=== PATIENT | male | born 1945 | race Caucasian/White ===

== ENCOUNTER 2016-12-15 22:41 | Inpatient (IN) ==
[2016-12-15] MEDS ORDERED: *HR* HYDROmorphone (PF) 1 MG/ML SYRINGE IVP ONE (23:40)
[2016-12-15] MEDS ORDERED: 0.9 % Sodium Chloride 500 ML IVC ONE (23:40)
[2016-12-16 00:11] LABS: Basophils % 0.2 %; Eosinophils % 0.3 %; Hematocrit 35.3 % (37.5-50.1); Hemoglobin 11.3 g/dL (12.9-16.9); Immature Granulocytes % 0.3 % (0-4); Lymphocytes # 1.4 K/mcL (0.6-4.6); Mean Corpuscular Volume 90.5 fL (83.0-100.0); Mean Platelet Volume 10.3 fL (9.4-12.4); Monocytes # 0.8 K/mcL (0.0-1.3); Monocytes % 8.5 %; Neutrophils # 6.7 K/mcL (1.6-8.9); Platelet Count 275 K/mcL (140-400); Red Cell Distribution Width 12.5 % (11.5-14.5); Segmented Neutrophils % 74.7 %
[2016-12-16 00:25] LABS: Calcium 9.3 mg/dL (8.6-10.8); Potassium 4.7 mEq/L (3.5-4.5)
[2016-12-16] MEDS ORDERED: Vancomycin 1,250 MG in D5% in Water 250 ML IVPB ONE ×2 (01:39→01:45)
--- NOTE | 2016-12-16 01:42 | Emergency Department Note ---
Disposition Clinical Impression: Left leg cellulitis Diabetic ulcer of left foot Qualifiers: Diabetic foot ulcer location: midfoot Diabetes mellitus type: type 2 Non- pressure ulcer stage: unspecified non-pressure ulcer stage Qualified Code(s): E11.621 - Type 2 diabetes mellitus with foot ulcer Disposition: Admitted As Inpatient Wound/Laceration HPI - General Chief Complaint: ED Wound/Laceration Stated Complaint: LEFT FOOT SWELLING/FEVER Time Seen by Provider: 12/15/16 23:22 Source: patient, family Limitations: no limitations Nursing Notes Reviewed: Yes Vital Signs Reviewed: Yes - History of Present Illness HPI Narrative: Patient presents to the ED with the chief complaint of left foot swelling and pain. Patient has a known diabetic ulcer on the bottom of his left foot and is followed in [place] for this. He states today that the pain got significantly worse, he developed worsening swelling that has tracked up his leg. States that he feels very hot. Had a fever at home and is generally felt unwell. States the last one to wound care about a week ago, but has noticed a change in smell coming from his foot area. Denies any chest pain, shortness breath, vomiting - Related Data Home Medications Medication Instructions Recorded Confirmed Calcitriol [Rocaltrol] 0.25 mcg PO DAILY 12/16/16 12/16/16 Furosemide [Lasix] 20 mg PO DAILY PRN 12/16/16 12/16/16 Insulin ASPART [Novolog Flexpen] 2 - 14 units SQ TID PRN 12/16/16 12/16/16 Insulin Degludec [Tresiba 80 unit SQ QPM 12/16/16 12/16/16 Flextouch U-100] Pregabalin [Lyrica] 100 mg PO DAILY 12/16/16 12/16/16 Allergies Allergy/AdvReac Type Severity Reaction Status Date / Time No Known Allergies Allergy Verified 12/15/16 23:08 All systems ED: reviewed and negative except as stated. Integumentary: Reports: as per HPI Past Medical History - Past Medical History Attestation: Yes The following information was validated with the patient. Source: patient, old records reviewed Medical history: Reports: cancer, coronary artery disease, diabetes, hyperlipidemia, hypertension, myocardial infarction, renal disease Surgical history: Reports: coronary bypass (CABG) Psychiatric history: Reports: depression - Social History Smoking Status: Never smoker Smokeless Tobacco Status: No Alcohol use: Reports: none Drug use: Reports: none Physical Exam - General Limitations: no limitations General appearance: alert, in no apparent distress - Head Head exam: atraumatic, normocephalic, normal inspection - Chest Chest inspection: Present: normal inspection, symmetric chest wall rise - Respiratory Respiratory exam: Present: normal lung sounds bilaterally - Cardiovascular Cardiovascular exam: Present: regular rate, normal rhythm, normal heart sounds - Abdominal Exam Abdominal exam: Present: soft, Non-Tender. Absent: tenderness, distention, guarding, rebound, rigidity - Extremities Exam Extremities exam: Present: other (Patient has a dime-sized ulcer to the bottom of his left foot that is packed and dressed and dry. Madeleine reports increased drainage on the dressing. Surrounding warmth but no erythema. Warmth and swelling does extend up his ankle to just underneath his knee and is significantly different compared to the other side. Compartments are soft and nontender) Course Course Narrative: Patient has no leukocytosis, but did have a fever documented here, as well as a warm, swollen left leg. He did have concern for an underlying cellulitis due to his diabetic ulcer. We will treat with antibiotics and admit to the hospitalist service. After reviewing the patient's initial vital signs, he did originally immediate serious criteria due to his heart rate of 100. However, whenever I saw the patient and his heart rate was less than 90. Therefore, he did not have SIRS criteria when I evaluated him, however, after speaking with the hospitalist, we did decide to go ahead and order blood cultures and a lactate. If the lactic acid comes back elevated. We will treat with a fluid bolus and [facility]. Vital Signs Temperature 101.1 F H 12/15/16 23:03 Pulse Rate 100 12/15/16 23:03 Respiratory Rate 16 12/15/16 23:03 Blood Pressure 165/48 12/15/16 23:03 O2 Sat by Pulse Oximetry 94 12/15/16 23:03 Temperature 98.8 F 12/16/16 23:47 Pulse Rate 100 12/16/16 23:47 Respiratory Rate 16 12/16/16 23:47 Blood Pressure 158/89 12/16/16 23:47 O2 Sat by Pulse Oximetry 93 12/16/16 23:47 Oxygen Delivery Oxygen Delivery Room Air Wound/Laceration - Lab Data Result diagrams: 12/16/16 00:02 12/16/16 00:02 Lab Results 12/16/16 12/16/16 12/16/16 Range/Units 00:02 00:02 00:02 WBC 9.0 (4.3-11.1) K/mcL RBC 3.90 L (4.19-5.50) M/mcL Hgb 11.3 L (12.9-16.9) g/dL Hct 35.3 L (37.5-50.1) % MCV 90.5 (83.0-100.0) fL MCH 29.0 (28.0-33.3) pg MCHC 32.0 (31.6-35.5) g/dL RDW 12.5 (11.5-14.5) % Plt Count 275 (140-400) K/mcL MPV 10.3 (9.4-12.4) fL Immature Gran % 0.3 (0-4) % Seg Neutrophils % 74.7 % Lymphocytes % 16.0 % Monocytes % 8.5 % Eosinophils % 0.3 % Basophils % 0.2 % Neutrophils # 6.7 (1.6-8.9) K/mcL Lymphocytes # 1.4 (0.6-4.6) K/mcL Monocytes # 0.8 (0.0-1.3) K/mcL Eosinophils # 0.0 (0.0-0.6) K/mcL Basophils # 0.0 (0.0-0.2) K/mcL ESR (0-10) mm/hr PT 12.5 H (9.4-12.1) Seconds INR 1.2 APTT 27.4 (26.0-36.0) Seconds Sodium 135 L (136-145) mEq/L Potassium 4.7 H (3.5-4.5) mEq/L Chloride 99 (98-109) mEq/L Carbon Dioxide 25 (19-29) mEq/L BUN 52 H (8-26) mg/dL Creatinine 2.62 H (0.72-1.25) mg/dL Est GFR ( Amer) 30 L (> 60) Est GFR (Non-Af Amer) 24 L (> 60) BUN/Creatinine Ratio 20 (6-26) Glucose 487 H (70-99) mg/dL Est Mean Plasma Glucose mg/dl Hemoglobin A1c ( - 5.6) % Calculated Osmolality 316 H (280-300) Lactic Acid (0.5-2.2) mmol/L Calcium 9.3 (8.6-10.8) mg/dL C-Reactive Protein (Less than 5) mg/L 12/16/16 12/16/16 12/16/16 Range/Units 00:02 00:02 00:02 WBC (4.3-11.1) K/mcL RBC (4.19-5.50) M/mcL Hgb (12.9-16.9) g/dL Hct (37.5-50.1) % MCV (83.0-100.0) fL MCH (28.0-33.3) pg MCHC (31.6-35.5) g/dL RDW (11.5-14.5) % Plt Count (140-400) K/mcL MPV (9.4-12.4) fL Immature Gran % (0-4) % Seg Neutrophils % % Lymphocytes % % Monocytes % % Eosinophils % % Basophils % % Neutrophils # (1.6-8.9) K/mcL Lymphocytes # (0.6-4.6) K/mcL Monocytes # (0.0-1.3) K/mcL Eosinophils # (0.0-0.6) K/mcL Basophils # (0.0-0.2) K/mcL ESR >= 130 H (0-10) mm/hr PT (9.4-12.1) Seconds INR APTT (26.0-36.0) Seconds Sodium (136-145) mEq/L Potassium (3.5-4.5) mEq/L Chloride (98-109) mEq/L Carbon Dioxide (19-29) mEq/L BUN (8-26) mg/dL Creatinine (0.72-1.25) mg/dL Est GFR ( Amer) (> 60) Est GFR (Non-Af Amer) (> 60) BUN/Creatinine Ratio (6-26) Glucose (70-99) mg/dL Est Mean Plasma Glucose 283 mg/dl Hemoglobin A1c 11.5 H ( - 5.6) % Calculated Osmolality (280-300) Lactic Acid (0.5-2.2) mmol/L Calcium (8.6-10.8) mg/dL C-Reactive Protein 158 H (Less than 5) mg/L 12/16/16 Range/Units 02:01 WBC (4.3-11.1) K/mcL RBC (4.19-5.50) M/mcL Hgb (12.9-16.9) g/dL Hct (37.5-50.1) % MCV (83.0-100.0) fL MCH (28.0-33.3) pg MCHC (31.6-35.5) g/dL RDW (11.5-14.5) % Plt Count (140-400) K/mcL MPV (9.4-12.4) fL Immature Gran % (0-4) % Seg Neutrophils % % Lymphocytes % % Monocytes % % Eosinophils % % Basophils % % Neutrophils # (1.6-8.9) K/mcL Lymphocytes # (0.6-4.6) K/mcL Monocytes # (0.0-1.3) K/mcL Eosinophils # (0.0-0.6) K/mcL Basophils # (0.0-0.2) K/mcL ESR (0-10) mm/hr PT (9.4-12.1) Seconds INR APTT (26.0-36.0) Seconds Sodium (136-145) mEq/L Potassium (3.5-4.5) mEq/L Chloride (98-109) mEq/L Carbon Dioxide (19-29) mEq/L BUN (8-26) mg/dL Creatinine (0.72-1.25) mg/dL Est GFR ( Amer) (> 60) Est GFR (Non-Af Amer) (> 60) BUN/Creatinine Ratio (6-26) Glucose (70-99) mg/dL Est Mean Plasma Glucose mg/dl Hemoglobin A1c ( - 5.6) % Calculated Osmolality (280-300) Lactic Acid 1.1 (0.5-2.2) mmol/L Calcium (8.6-10.8) mg/dL C-Reactive Protein (Less than 5) mg/L Attestation Statement - Attestation Attestation: I, Jared Travis, examined this patient and my medical decision-making was reviewed with the TELECOMMUNICATIONS REPAIRER/PA/Advanced Practice Nurse/Resident Physician. I agree with the documented findings, disposition and treatment plan as described except to the extent set forth below. 71-year-old male presents with concerns of swelling of the left foot and fever. Patient states he has a history of diabetes and does not have that sensation of his feet. Patient states he has a ulcer to the plantar aspect of the forefoot which is being treated with antibacterial ointment. Patient denies vomiting, chest pain, shortness of breath. No calf tenderness to palpation although he does have obvious swelling to the left foot, ankle and distal calf. Patient started on antibiotics in the emergency department. He will be admitted for further care of likely cellulitis. X-ray did not show evidence of fracture or osteomyelitis.
[2016-12-16] MEDS ORDERED: Piperacillin/Tazobactam 4.5 GM in D5% in Water (Mini-Bag+) 100 ML IVPB ONE (01:47)
[2016-12-16] MEDS ORDERED: Acetaminophen 325 MG TABLET PO PRN ×2 (02:34→02:38)
[2016-12-16] MEDS ORDERED: Naloxone 0.4 MG/ML INJ IVP PRN (02:37)
[2016-12-16] MEDS ORDERED: *HR* Morphine 2 MG/ML SYRINGE IVP PRN (02:37)
--- NOTE | 2016-12-16 02:39 | Internal Med History&Physical ---
<Aranza Sands - Last Filed: 12/16/16 03:38> Date of Encounter: 12/16/16 Time of Encounter: 01:45 Assessment and Plan (1) Sepsis Current visit: Yes Status: Acute - 2 SIRS criteria (fever 101.1 & tachycardia 100 in ED). Lactic acid 1.1. - Most likely secondary to left diabetic foot ulcer and possible left lower leg cellulitis. - Patient may also have UTI given reported 2-week history of dysuria and foul urine smell. Will obtain UA for further evaluation. - Blood culture pending. - Continue hydration with IV NS (100 cc/hr for total of 1L). - Continue IV Zosyn. - Closely monitor. Time spent on admission: 45 minutes. Qualifiers: Sepsis type: sepsis due to unspecified organism Qualified Code(s): A41.9 - Sepsis, unspecified organism (2) Diabetic ulcer of left foot Current visit: Yes Status: Chronic - One-month history of left plantar diabetic foot ulcer, appears to be worsen over time given reported worsening swelling & pain. - Will obtain left foot MRI for better evaluation of osteomyelitis. - Continue IV Zosyn. - Will consult podiatry and appreciate further evaluation and possible surgical intervention. Will obtain MADALYN vascular study result from [facility] in case patient needs surgery. Qualifiers: Diabetic foot ulcer location: midfoot Diabetes mellitus type: type 2 Non- pressure ulcer stage: unspecified non-pressure ulcer stage Qualified Code(s): E11.621 - Type 2 diabetes mellitus with foot ulcer; L97.429 - Non-pressure chronic ulcer of left heel and midfoot with unspecified severity (3) Left leg cellulitis Current visit: Yes Status: Chronic - Concern of left lower leg cellulitis given significant erythema, swelling and warmth of the left lower leg compared to the right. - Will obtain CT left lower leg for further evaluation. - Continue IV Zosyn. (4) Acute on chronic renal failure Current visit: Yes Status: Suspected - SCr 2.62 / eGFR 24 on admission, compared to SCr 2.32 / eGFR 28 from 12/24/14. - Patient reports known history of CKD stage 3. - May have some component of prerenal DANIE secondary to current sepsis. - Hydration with IV fluid. - Avoid nephrotoxin. - Continue to monitor renal function and electrolytes. Qualifiers: Acute renal failure type: unspecified Chronic kidney disease stage: stage 3 (moderate) Qualified Code(s): N17.9 - Acute kidney failure, unspecified; N18.3 - Chronic kidney disease, stage 3 (moderate) (5) CHF (congestive heart failure) Current visit: Yes Status: Chronic - Echocardiogram from 11/15/14 showed LVEF 45-50% with moderate LV diastolic dysfunction. - Cautious regarding hydration with IV fluid. Qualifiers: Congestive heart failure type: diastolic Congestive heart failure chronicity: chronic Qualified Code(s): I50.32 - Chronic diastolic (congestive ) heart failure (6) Diabetes mellitus Current visit: Yes Status: Chronic - Insulin sliding scale with routine AccuCheck. - Check Hgb A1C. Qualifiers: Diabetes mellitus type: type 2 Diabetes mellitus complication status: with neurologic complications Diabetes mellitus complication detail: with polyneuropathy Diabetes mellitus intermediate card tender insulin use: with long-term use Qualified Code(s): E11.42 - Type 2 diabetes mellitus with diabetic polyneuropathy; Z79.4 - custodial (current) use of insulin (7) CAD (coronary artery disease) Current visit: Yes Status: Chronic -S/p 9 stents and CABG. Qualifiers: Coronary Disease-Associated Artery/Lesion type: [place] artery [place] vs. transplanted heart: [place] heart Associated angina: without angina Qualified Code(s): I25.10 - Atherosclerotic heart disease of [place] coronary artery without angina pectoris (8) DVT prophylaxis Current visit: Yes Status: Acute - SQ heparin. Internal Medicine - H&P: HPI Chief complaint: Worsening swelling and pain of left diabetic foot ulcer Admitted From: Emergency Dept Plans for Post Hospital Care: Home History of present illness: Mr. Anguiano is a 71 year old male with IDDM, CKD stage 3, HTN, CAD s/p 9 stents and CABG, dCHF (LVEF 45-50% & moderate LV diastolic dysfunction per echo on 11/15) and history of melanoma s/p Mohs. Patient presented with complaint of worsening swelling and pain of left diabetic foot ulcer. Patient had the left diabetic foot ulcer for a month and saw nozzle and sleeve worker Dr. Mehta at [facility]. Per patient, he was seen by wound care on Sunday and recently got what sounds like MADALYN index test for possible left foot surgery. Patient had worsening swelling and pain radiating to left leg yesterday (12/15/16) so decided to come to ED. Patient reports having drainage and worsening bad smelling from the foot ulcer. Other associated symptoms include fever, chills, nausea and lightheadedness. Patient had chronic decreased sensation of bilateral lower extremity due to diabetic neuropathy. Patient also reports having occasional dysuria and bad smelling of urine for 2 weeks. Patient has some occasional dry cough but no shortness of breath, chest pain, abdominal pain, vomiting, diarrhea. Patient is full code. In ED, patient was noted to have fever 101.1 and tachycardia 100. Blood culture was collected. Patient received 500 mL IV NS bolus and one dose of IV Zosyn. Left foot X-ray found ulceration along the plantar aspect of the foot but no radiographic evidence of osteomyelitis. Past Med Surg Social Fam HX - Past Medical History Medical history: cancer (Melanoma s/p Mohs), coronary artery disease, diabetes, hyperlipidemia, hypertension, myocardial infarction, renal disease (CKD stage 3) Psychiatric history: depression - Past Surgical History Surgical History: angioplasty/stent (9 stents), coronary bypass (CABG), other ( Mohs for melanoma) - Social History Smoking Status: Never smoker Smokeless Tobacco Status: No Alcohol use: none Drug use: none - Family History Father Living Status: Age at : 82 Hx Family Cardiac Disorders: Yes (CO) Mother Living Status: Age at : 84 Hx Family Cancer: Yes (Liver cancer) Internal Medicine - H&P: Meds Calcitriol [Rocaltrol] 0.25 mcg PO DAILY 12/16/16 [History] Furosemide [Lasix] 20 mg PO DAILY PRN 12/16/16 [History] Insulin ASPART [Novolog Flexpen] 2 - 14 units SQ TID PRN 12/16/16 [History] Insulin Degludec [Tresiba Flextouch U-100] 80 unit SQ QPM 12/16/16 [History] Pregabalin [Lyrica] 100 mg PO DAILY 12/16/16 [History] Allergies No Known Allergies Allergy (Verified 12/15/16 23:08) All Systems PM: A 10-system review of systems was performed and is negative for pertinent findings except as documented above in the HPI. - Constitutional Constitutional: anorexia, chills, fatigue, fever(s) - EENT Eyes: no change in vision Ears: no decreased hearing Nose, mouth and throat: no dysphagia, no odynophagia - Cardiovascular Cardiovascular ROS IM: lightheadedness, no chest pain, no syncope - Respiratory Respiratory: cough, no dyspnea, no hemoptysis, no excessive phlegm production - Gastrointestinal Gastrointestinal: nausea, no abdominal pain, no diarrhea, no hematochezia, no melena, no vomiting - Genitourinary Genitourinary ROS male: dysuria, urinary incontinence (Occasional), no difficulty urinating, no hematuria - Integumentary Integumentary IM: no pruritus, no rash - Neurological Neurological ROS: numbness (Chronic BLE), no focal weakness - Hematologic/Lymphatic Hematologic/Lymphatic: easy bruising, no easy bleeding - Constitutional Vitals: Temp Pulse Resp BP Pulse Ox 101.1 F H 89 16 147/73 95 12/15/16 23:03 12/16/16 01:30 12/15/16 23:03 12/16/16 01:30 12/16/16 01:30 General appearance: Present: cooperative, A&O X 3, no acute distress, answers questions appropriately - Head Head exam: Present: atraumatic, normocephalic - Eye Eye exam: Present: EOMI, PERRL, conjuntiva pink, sclera anicteric - Neck Neck exam general surgery: Present: supple, trachea midline. Absent: lymphadenopathy - Respiratory Respiratory exam: Present: CTAB. Absent: accessory muscle use, rales, rhonchi, wheezes - Cardiovascular Cardiovascular exam: Present: RRR, +S1, +S2. Absent: diastolic murmur, gallop, rubs, systolic murmur - GI/Abdominal GI/Abdominal exam: Present: normal bowel sounds, soft, no peritoneal signs. Absent: distended, tenderness - Extremities Exam Extremities exam: Present: warm, radial pulses palpable and symmetrical. Absent : cyanotic Additional comments: Left foot plantar ulcer with packing & dressing, no significant drainage noted. Significant erythema, swelling and warmth of left lower leg compared to the right. - Neurological Exam Neurological exam: Present: CN II-XII intact, oriented X3, no focal deficits. Absent: pronater drift, facial droop, speech deficit - Skin Skin exam: Present: dry, warm Internal Med - H&P Results - Labs CBC & Chem 7: 12/16/16 00:02 12/16/16 00:02 Labs: Short CBC 12/16/16 Range/Units 00:02 WBC 9.0 (4.3-11.1) K/mcL Hgb 11.3 L (12.9-16.9) g/dL Hct 35.3 L (37.5-50.1) % Plt Count 275 (140-400) K/mcL Neutrophils # 6.7 (1.6-8.9) K/mcL BMP 12/16/16 00:02 Sodium 135 L Potassium 4.7 H Chloride 99 Carbon Dioxide 25 BUN 52 H Creatinine 2.62 H Glucose 487 H Calcium 9.3 - Impressions ITS Impressions Foot X-Ray 12/16/16 23:40 IMPRESSION: 1. Ulceration along the plantar aspect of the foot. No radiographic evidence of osteomyelitis is identified. D/ / Carlos Lan MD / Carlos Lan MD Interpreting Provider: Carlos Lan MD <Chad Gar - Last Filed: 12/16/16 19:45> Date of Encounter: 12/16/16 Internal Medicine - H&P: HPI History of present illness: Mr. Anguiano is a 71 year old male All Systems PM: A 10-system review of systems was performed and is negative for pertinent findings except as documented above in the HPI. - Constitutional Vitals: Temp Pulse Resp BP Pulse Ox 100.5 F H 100 14 166/84 93 12/16/16 18:37 12/16/16 18:37 12/16/16 18:37 12/16/16 18:37 12/16/16 18:37 Internal Med - H&P Results - Labs CBC & Chem 7: 12/16/16 00:02 12/16/16 00:02 Labs: Urine 12/16/16 Range/Units 05:45 Urine Color Yellow (Yellow) Urine Clarity Clear (Clear) Urine pH 6.0 (5.0-8.0) pH Units Ur Specific [place] 1.029 H (1.010-1.025) Urine Protein >=300 H (Neg-Trace) mg/dL Urine Glucose (UA) >=1000 H (Normal) mg/dL - Impressions ITS Impressions Lower Extremity CT 12/16/16 03:19 IMPRESSION: 1. Induration of subcutaneous soft tissues about the lower leg and foot/ankle. Finding can be seen with changes associated with patient's clinical diagnosis of cellulitis. No evidence of focal/drainable fluid collection/abscess. 2. Focal skin defect along ventral soft tissues of the foot in the region of the 3rd metatarsophalangeal joint. Finding is consistent with patient's reported clinical history of diabetic ulcer. No evidence of adjacent fluid collection/abscess. 3. No definite radiographic findings to suggest changes associated with osteomyelitis. If clinical symptomatology warrants, follow-up MRI examination may be helpful for more complete evaluation. D/ / 12/16/2016 06:30:29 Jose Asif MD / agata Interpreting Provider: Jose Asif MD Foot MRI 12/16/16 03:21 IMPRESSION: 1. No osteomyelitis. 2. 17 x 15 mm shallow soft tissue ulceration plantar to the 3rd MTP joint. Forefoot subcutaneous edema compatible cellulitis. No drainable fluid collection. 3. Fatty infiltration and atrophy, and edema of the visualized musculature compatible with diabetic myopathy versus denervation versus myositis. 4. Mild 1st MTP degenerative changes. 5. Chronic healed fracture of the 1st proximal phalanx. D/ / Femi Briseno MD / Femi Briseno MD Interpreting Provider: Femi Briseno MD Foot X-Ray 12/16/16 23:40 IMPRESSION: 1. Ulceration along the plantar aspect of the foot. No radiographic evidence of osteomyelitis is identified. D/ / Carlos Lan MD / Carlos Lan MD Interpreting Provider: Carlos Lan MD - Attending Attestation I examined this patient and my medical decision-making was reviewed with the Resident Physician, Dr Aranza Sands. I agree with the documented findings, disposition and treatment plan as described except to the extent set forth below. My findings are summarized below: Examination of the patient's left foot reveals a plantar ulcer packed with gauze , no discharge noted. Left lower extremity is swollen and tender. Plan: Admit. IV antibiotics. Podiatry consult. We will check MRI of the foot.
[2016-12-16] MEDS ORDERED: Dextrose Gel 15 GM PO PRN ×2 (02:40)
[2016-12-16] MEDS ORDERED: *HR* Dextrose 50 % in Water (Syg) 50 ML SYRINGE IVP PRN (02:40)
[2016-12-16] MEDS ORDERED: D5% in Water 1,000 ML IVC PRN ×2 (02:40→21:45)
[2016-12-16] MEDS ORDERED: Insulin LISPRO 300 UNITS/3 ML VIAL SQ SCH ×2 (02:45→07:30)
[2016-12-16 03:13] LABS: INR 1.2; Prothrombin Time 12.5 Seconds (9.4-12.1)
[2016-12-16 03:15] LABS: Activated Partial Thrombo Time 27.4 Seconds (26.0-36.0)
[2016-12-16 03:16] LABS: Hemoglobin A1C 11.5 %
[2016-12-16] MEDS ORDERED: 0.9 % Sodium Chloride 1,000 ML IVC SCH (03:30)
[2016-12-16] MEDS: Insulin LISPRO 300 UNITS/3 ML VIAL SQ SCH ×3 (05:53→19:22)
[2016-12-16] MEDS: *HR* Heparin 5,000 UNIT/ML VIAL SQ SCH ×2 (05:53→19:14)
[2016-12-16 06:07] LABS: Bilirubin,Urine Negative (Negative); Blood,Urine Trace (Negative); Clarity,Urine Clear (Clear); Color,Urine Yellow (Yellow); Glucose,Urine (UA) >=1000 mg/dL (Normal); Ketones,Urine Negative (Negative); Leukocyte Esterase,Urine Negative (Negative); Nitrite,Urine Negative (Negative); Protein,Urine >=300 mg/dL (Neg-Trace); Specific Gravity,Urine 1.029 (1.010-1.025); Urobilinogen,Urine Normal (Normal)
[2016-12-16 06:10] LABS: Bacteria,Urine None Seen per hpf (None-Few); Hyaline Casts,Urine None Seen per lpf (None-Few); Squamous Epithelial Cell,Urine Moderate per lpf (None-Few); WBC,Urine 0-3 per hpf (0-3)
[2016-12-16] MEDS ORDERED: Piperacillin/Tazobactam 2.25 GM in D5% in Water (Mini-Bag+) 100 ML IVPB SCH (10:30)
--- NOTE | 2016-12-16 11:23 | Event Note ---
Date of Encounter: 12/16/16 Time of Encounter: 08:00 Feels better this morning. Pain is well controlled. ESR and CRP a severely elevated. MRI has been done but results are currently pending. Consulted podiatry and will follow the recommendations. Continue IV antibiotics. Blood pressure is elevated. We will start patient on antihypertensives.
[2016-12-16] MEDS: Piperacillin/Tazobactam 3.375 GM in D5% in Water (Mini-Bag+) 100 ML IVPB SCH (13:20)
--- NOTE | 2016-12-16 22:23 | Podiatry Consult Note ---
Date of Encounter: 12/16/16 Time of Encounter: 22:20 Assessment and Plan (1) Diabetic ulcer of left foot Current visit: Yes Status: Chronic At this time there is not appear to be a deep abscess and the ulceration is open and draining allowing for any deep abscess that would be in the region to drain sufficiently. For that reason we will avoid surgery and monitor the foot for any changes. Patient will likely need antibiotics for at least 1-2 weeks and may benefit from an infectious disease consult. Dressing changes and monitoring of this time. Qualifiers: Diabetic foot ulcer location: midfoot Diabetes mellitus type: type 2 Non- pressure ulcer stage: unspecified non-pressure ulcer stage Qualified Code(s): E11.621 - Type 2 diabetes mellitus with foot ulcer; L97.429 - Non-pressure chronic ulcer of left heel and midfoot with unspecified severity History of Present Illness Chief complaint: Ulceration HPI: Mr. Anguiano is a 71 year old male who relates that he has had an ulceration for some time on the left foot. Patient relates that it has not been improving and that he sees another doctor in [place]. Patient relates that the wound seem to be getting worse and more painful so he came to the hospital Past Med Surg Social Fam HX - Past Medical History Medical history: cancer, coronary artery disease, diabetes, hyperlipidemia, hypertension, myocardial infarction, renal disease Psychiatric history: depression - Past Surgical History Surgical History: coronary bypass (CABG) - Social History Smoking Status: Never smoker Smokeless Tobacco Status: No Alcohol use: none Drug use: none - Family History Father Living Status: Age at : 82 Hx Family Cardiac Disorders: Yes ([place]) Mother Living Status: Age at : 84 Hx Family Cancer: Yes (Liver cancer) Medications and Allergies Calcitriol [Rocaltrol] 0.25 mcg PO DAILY 12/16/16 [History] Furosemide [Lasix] 20 mg PO DAILY PRN 12/16/16 [History] Insulin ASPART [Novolog Flexpen] 2 - 14 units SQ TID PRN 12/16/16 [History] Insulin Degludec [Tresiba Flextouch U-100] 80 unit SQ QPM 12/16/16 [History] Pregabalin [Lyrica] 100 mg PO DAILY 12/16/16 [History] Allergies No Known Allergies Allergy (Verified 12/15/16 23:08) All Systems Reviewed: A 10-system review of systems was performed and is negative for pertinent findings except as documented above in the HPI. Physical Exam - Constitutional Vitals: Temp Pulse Resp BP Pulse Ox 100.5 F H 100 14 166/84 93 12/16/16 18:37 12/16/16 18:37 12/16/16 18:37 12/16/16 18:37 12/16/16 18:37 Exam: Pedal pulses faintly palpable. Capillary fill time intact but slightly sluggish to digits 1 through 5 bilaterally. There are no open lesions, abrasions, or ulcerations with the exception of the plantar aspect of the left foot which demonstrates a 1 cm in diameter lesion that probes approximately 6 mm. The base of the wound appears to be slightly ischemic. Decreased sensation consistent with neuropathy, MRI demonstrates no osteomyelitis or deep abscess. Results - Labs Result Diagrams: 12/16/16 00:02 12/16/16 00:02 Labs: Abnormal lab results RBC 3.90 M/mcL (4.19-5.50) L 12/16/16 00:02 Hgb 11.3 g/dL (12.9-16.9) L 12/16/16 00:02 Hct 35.3 % (37.5-50.1) L 12/16/16 00:02 ESR >= 130 mm/hr (0-10) H 12/16/16 00:02 PT 12.5 Seconds (9.4-12.1) H 12/16/16 00:02 Sodium 135 mEq/L (136-145) L 12/16/16 00:02 Potassium 4.7 mEq/L (3.5-4.5) H 12/16/16 00:02 BUN 52 mg/dL (8-26) H 12/16/16 00:02 Creatinine 2.62 mg/dL (0.72-1.25) H 12/16/16 00:02 Est GFR ( Amer) 30 (> 60) L 12/16/16 00:02 Est GFR (Non-Af Amer) 24 (> 60) L 12/16/16 00:02 Glucose 487 mg/dL (70-99) H 12/16/16 00:02 POC Glucose 385 (58-89) H 12/16/16 05:41 Hemoglobin A1c 11.5 % (-5.6) H 12/16/16 00:02 Calculated Osmolality 316 (280-300) H 12/16/16 00:02 C-Reactive Protein 158 mg/L (Less than 5) H 12/16/16 00:02 Ur Specific [place] 1.029 (1.010-1.025) H 12/16/16 05:45 Urine Protein >=300 mg/dL (Neg-Trace) H 12/16/16 05:45 Urine Glucose (UA) >=1000 mg/dL (Normal) H 12/16/16 05:45 Urine Blood Trace (Negative) H 12/16/16 05:45 Urine Microscopic RBC 5-15 per hpf (0-3) H 12/16/16 05:45 Ur Squamous Epith Cells Moderate per lpf (None-Few) H 12/16/16 05:45 All other labs normal. Consult Discharge Plan - Plan Referrals: Raoul Gaona DO [Primary Care Provider] -
[2016-12-17] MEDS: Piperacillin/Tazobactam 3.375 GM in D5% in Water (Mini-Bag+) 100 ML IVPB SCH ×3 (02:14→23:14)
[2016-12-17] MEDS: *HR* Heparin 5,000 UNIT/ML VIAL SQ SCH ×2 (05:55→16:47)
[2016-12-17] MEDS: Insulin LISPRO 300 UNITS/3 ML VIAL SQ SCH ×4 (08:09→22:00)
[2016-12-17 08:18] LABS: Basophils % 0.3 %; Eosinophils # 0.1 K/mcL (0.0-0.6); Eosinophils % 0.6 %; Hematocrit 33.2 % (37.5-50.1); Hemoglobin 10.8 g/dL (12.9-16.9); Immature Granulocytes % 0.4 % (0-4); Immature Platelets 1.9 % (1.1-6.1); Lymphocytes # 1.2 K/mcL (0.6-4.6); Lymphocytes % 11.8 %; Mean Corpuscular HGB Conc 32.5 g/dL (31.6-35.5); Mean Corpuscular Hemoglobin 29.6 pg (28.0-33.3); Mean Platelet Volume 10.1 fL (9.4-12.4); Monocytes # 0.6 K/mcL (0.0-1.3); Monocytes % 6.3 %; Neutrophils # 7.9 K/mcL (1.6-8.9); Platelet Count 261 K/mcL (140-400); Red Blood Count 3.65 M/mcL (4.19-5.50); Red Cell Distribution Width 12.4 % (11.5-14.5); Segmented Neutrophils % 80.6 %
[2016-12-17] MEDS: Ondansetron 4 MG/2 ML VIAL IVP PRN (08:19)
[2016-12-17 09:09] LABS: Calcium 8.9 mg/dL (8.6-10.8); Potassium 4.2 mEq/L (3.5-4.5)
--- NOTE | 2016-12-17 11:42 | Internal Med Progress Note ---
Date of Encounter: 12/17/16 Time of Encounter: 08:00 - Assessment and plan (1) Sepsis Current Visit: Yes Status: Acute Assessment and plan: From Cellulitis and diabetic foot ulcer. Patient is clinically getting better. Continue IV antibiotics. Podiatry does not recommend any surgical intervention at this time. Cultures have been negative so far. Will follow culture results. Moderate risk for complications. Qualifiers: Sepsis type: sepsis due to unspecified organism Qualified Code(s): A41.9 - Sepsis, unspecified organism (2) Diabetic ulcer of left foot Current Visit: Yes Status: Chronic Assessment and plan: Evaluated by orthopedics and neurosurgery recommended at this time. Will obtain infectious disease consult for further recommendations of antibiotics. Qualifiers: Diabetic foot ulcer location: midfoot Diabetes mellitus type: type 2 Non- pressure ulcer stage: unspecified non-pressure ulcer stage Qualified Code(s): E11.621 - Type 2 diabetes mellitus with foot ulcer; L97.429 - Non-pressure chronic ulcer of left heel and midfoot with unspecified severity (3) Left leg cellulitis Current Visit: Yes Status: Acute Assessment and plan: Improving. On IV antibiotics. (4) Diabetes mellitus Current Visit: Yes Status: Chronic Assessment and plan: Blood sugars are better controlled but remain elevated. We will add long- acting insulin. 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 Qualifiers: Congestive heart failure type: diastolic Congestive heart failure chronicity: chronic Qualified Code(s): I50.32 - Chronic diastolic (congestive ) heart failure (7) CKD (chronic kidney disease) Current Visit: Yes Status: Acute Assessment and plan: Acute worsening of chronic kidney disease. Improving renal function. Creatinine 2.15 today. Holding Lasix for now. Qualifiers: Chronic kidney disease stage: stage 3 (moderate) Qualified Code(s): N18.3 - Chronic kidney disease, stage 3 (moderate) (8) Acute on chronic renal failure Current Visit: Yes Status: Suspected Qualifiers: Acute renal failure type: unspecified Chronic kidney disease stage: stage 3 (moderate) Qualified Code(s): N17.9 - Acute kidney failure, unspecified; N18.3 - Chronic kidney disease, stage 3 (moderate) - Subjective Interval history: Patient is feeling better today. Pain is well controlled in his left foot. Denies any fever or chills. Tolerating diet well. - Constitutional Vitals: Temp Pulse Resp BP Pulse Ox 98.5 F 98 16 154/86 95 12/17/16 06:39 12/17/16 06:39 12/17/16 06:39 12/17/16 06:39 12/17/16 06:39 General appearance: Present: cooperative, A&O X 3, no acute distress, answers questions appropriately - Respiratory Respiratory exam: Present: CTAB. Absent: accessory muscle use, rales, rhonchi, wheezes - Cardiovascular Cardiovascular exam: Present: RRR, +S1, +S2. Absent: diastolic murmur, gallop, rubs, systolic murmur - GI/Abdominal GI/Abdominal exam: Present: normal bowel sounds, soft, no peritoneal signs. Absent: distended, tenderness - Extremities Exam Extremities exam: Present: warm, radial pulses palpable and symmetrical. Absent : calf tenderness, cyanotic, pedal edema Additional comments: Erythema of left leg pretty much subsided. Stable Left foot ulcer on the plantar surface - Neurological Exam Neurological exam: Present: alert, oriented X3, no focal deficits. Absent: facial droop, speech deficit - Skin Skin exam: Present: dry, intact Internal Medicine: Result - Labs CBC & Chem 7: 12/17/16 08:00 12/17/16 08:00 Labs: Short CBC 12/17/16 Range/Units 08:00 WBC 9.8 (4.3-11.1) K/mcL Hgb 10.8 L (12.9-16.9) g/dL Hct 33.2 L (37.5-50.1) % Plt Count 261 (140-400) K/mcL Neutrophils # 7.9 (1.6-8.9) K/mcL BMP 12/17/16 08:00 Sodium 138 Potassium 4.2 Chloride 105 Carbon Dioxide 25 BUN 32 H D Creatinine 2.15 H Glucose 283 H Calcium 8.9 - ABG Interpretation ABG results: PT/INR, D-dimer PT 12.5 Seconds (9.4-12.1) H 12/16/16 00:02 - Impressions Impressions Lower Extremity CT 12/16/16 03:19 IMPRESSION: 1. Induration of subcutaneous soft tissues about the lower leg and foot/ankle. Finding can be seen with changes associated with patient's clinical diagnosis of cellulitis. No evidence of focal/drainable fluid collection/abscess. 2. Focal skin defect along ventral soft tissues of the foot in the region of the 3rd metatarsophalangeal joint. Finding is consistent with patient's reported clinical history of diabetic ulcer. No evidence of adjacent fluid collection/abscess. 3. No definite radiographic findings to suggest changes associated with osteomyelitis. If clinical symptomatology warrants, follow-up MRI examination may be helpful for more complete evaluation. D/ / 12/16/2016 06:30:29 Jose Asif MD / agata Interpreting Provider: Jose Asif MD Foot MRI 12/16/16 03:21 IMPRESSION: 1. No osteomyelitis. 2. 17 x 15 mm shallow soft tissue ulceration plantar to the 3rd MTP joint. Forefoot subcutaneous edema compatible cellulitis. No drainable fluid collection. 3. Fatty infiltration and atrophy, and edema of the visualized musculature compatible with diabetic myopathy versus denervation versus myositis. 4. Mild 1st MTP degenerative changes. 5. Chronic healed fracture of the 1st proximal phalanx. D/ / Femi Briseno MD / Femi Briseno MD Interpreting Provider: Femi Briseno MD Consult Discharge Plan - Plan Referrals: Raoul Gaona DO [Primary Care Provider] -
[2016-12-17] MEDS ORDERED: Insulin DETEMIR 100 UNIT/ML X5UNITS SQ SCH (21:00)
[2016-12-18 03:25] LABS: Potassium 3.9 mEq/L (3.5-4.5)
[2016-12-18 03:48] LABS: Basophils % 0.2 %; Eosinophils % 0.3 %; Hematocrit 32.9 % (37.5-50.1); Hemoglobin 10.5 g/dL (12.9-16.9); Immature Granulocytes % 0.5 % (0-4); Lymphocytes # 1.1 K/mcL (0.6-4.6); Lymphocytes % 11.9 %; Mean Corpuscular HGB Conc 31.9 g/dL (31.6-35.5); Mean Corpuscular Hemoglobin 28.4 pg (28.0-33.3); Mean Corpuscular Volume 88.9 fL (83.0-100.0); Mean Platelet Volume 10.6 fL (9.4-12.4); Monocytes # 0.7 K/mcL (0.0-1.3); Monocytes % 7.5 %; Neutrophils # 7.4 K/mcL (1.6-8.9); Platelet Count 284 K/mcL (140-400); Red Cell Distribution Width 12.3 % (11.5-14.5); Segmented Neutrophils % 79.6 %
[2016-12-18] MEDS: Ondansetron 4 MG/2 ML VIAL IVP PRN (06:05)
[2016-12-18] MEDS: *HR* Heparin 5,000 UNIT/ML VIAL SQ SCH ×2 (06:06→17:22)
[2016-12-18] MEDS: Piperacillin/Tazobactam 3.375 GM in D5% in Water (Mini-Bag+) 100 ML IVPB SCH ×2 (06:06→14:15)
[2016-12-18] MEDS: Insulin LISPRO 300 UNITS/3 ML VIAL SQ SCH ×4 (07:59→20:56)
--- NOTE | 2016-12-18 13:53 | Infectious Disease Consult ---
Date of Encounter: 12/18/16 Time of Encounter: 13:48 Assessment and Plan (1) Sepsis Status: Acute Assessment and plan: The patient had two SIRS criteria on admission. Likely secondary to left foot ulcer infection and LLE cellulitis. Improved. The patient has been afebrile. Tachycardia has resolved. Blood cultures drawn 12/16/16 are NGTD 2/2 sets. Qualifiers: Sepsis type: sepsis due to unspecified organism Qualified Code(s): A41.9 - Sepsis, unspecified organism (2) Diabetic ulcer of left foot Status: Chronic Assessment and plan: Location: Plantar aspect of the left foot. Etiology unclear. Patient denies any known trauma to the area. CT of the LLE showed findings consistent with cellulitis, but no abscess or osteomyelitis. MRI of the left foot negative for OM as well. ESR and CRP are markedly elevated at >130 and 158, respectively. Wound culture positive for Group F Strep. Podiatry consulted and following. No surgical intervention required at this time. Given the clinical picture and his elevated ESR and CRP, I am concerned that there might be some underlying osteomyelitis. I would recommend continuing IV antibiotics for at least two weeks and base our duration of treatment on how the patient progresses clinically and how his inflammatory markers respond to treatment. I discussed the risks, benefits, and alternatives to IV antibiotic therapy with the patient and his family. I provided the patient ample time to answer questions. He verbalizes understanding and is in agreement to pursue IV antibiotic therapy. Discontinue Zosyn. Start cefazolin 2 grams IV Q8H. Start flagyl 500mg PO TID. Duration of treatment depends on the clinical picture. Monitor renal function and dose-adjust antibiotics. Continue wound care and activity restrictions as outlined by the podiatry team. Consult VAT for EPIV placement. Get weekly labs every Sunday for the duration of IV antibiotic therapy: CBC, BUN /Cr, ESR, and CRP. Weekly EPIV care per protocol. Follow up with ID 01/02/17 at 0830. Qualifiers: Diabetic foot ulcer location: midfoot Diabetes mellitus type: type 2 Non- pressure ulcer stage: unspecified non-pressure ulcer stage Qualified Code(s): E11.621 - Type 2 diabetes mellitus with foot ulcer; L97.429 - Non-pressure chronic ulcer of left heel and midfoot with unspecified severity (3) Left leg cellulitis Status: Resolved Assessment and plan: Causative organism likely Group F Strep. Improved. Continue antibiotics as above. (4) Acute on chronic renal failure Status: Suspected Assessment and plan: Serum creatinine elevated from baseline at 2.62 on admission. Improved to 2.22 today. Continue to trend. Avoid nephrotoxins as able and dose-adjust antibiotics. Qualifiers: Acute renal failure type: unspecified Chronic kidney disease stage: stage 3 (moderate) Qualified Code(s): N17.9 - Acute kidney failure, unspecified; N18.3 - Chronic kidney disease, stage 3 (moderate) (5) Diabetes mellitus Status: Chronic Assessment and plan: Uncontrolled. HgbA1C 11.5% on admission. Blood glucose levels continue to be elevated. Recommend aggressive glucose monitoring and control to promote wound healing and prevent re-infection. 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 transplanted heart: [place] heart Associated angina: without angina Qualified Code(s): I25.10 - Atherosclerotic heart disease of [place] coronary artery without angina pectoris (7) CKD (chronic kidney disease) Status: Chronic Qualifiers: Chronic kidney disease stage: stage 3 (moderate) Qualified Code(s): N18.3 - Chronic kidney disease, stage 3 (moderate) Infectious Disease HPI - Data of Consult Patient: new to practice Consult date: 12/18/16 Requesting Physician: Whit Pantoja MD Primary Care Provider: Raoul Gaona - Consult Narrative Reason for consult: Left foot infection History of present illness: Mr. Anguiano is a 71 year old male with past medical history of CAD status post CABG , malignant melanoma, diabetes mellitus, hyperlipidemia, hypertension, and CK D. The patient was admitted to the hospital December 16 for left diabetic foot ulcer infection. We are consulted December 18 for further evaluation and treatment recommendations regarding left foot infection. The patient is a 71-year-old male with past medical history as stated above. The patient states that approximately 2 or 3 weeks ago he sustained an ulcer to the plantar aspect of the left foot. He is unsure how the ulcer happened, but states he was following with a horseshoer in [place]. He states that he was receiving topical antibiotic ointment to the area, but on the day of admission, he noticed that his leg and foot was starting to swell and there was increased drainage and a foul odor from the ulcer area upon arrival, the patient was febrile with temperature 101.1. He was also tachycardic. Laboratory studies revealed a normal white blood cell count and a serum creatinine that was mildly above his baseline. His ESR was markedly elevated at greater than 130 and his CRP was 158. The patient underwent a lower extremity CT that showed findings consistent with cellulitis but no abscess or osteomyelitis. Blood cultures were obtained 2 sets are no growth to date. Additionally, a urinalysis was obtained that was negative for pyuria. The patient received IV Zosyn in the emergency department. He was admitted to the hospital for further evaluation and treatment. Since admission, podiatry has been consulted and the patient underwent a foot MRI that was also negative for osteomyelitis. Based on the imaging findings and the clinical picture, the patient was deemed to not require surgery at this time. Wound cultures were obtained that were positive for group F strep. Yesterday, the patient did have a low-grade fever. His renal function is back to baseline. Blood glucose levels remain elevated. He is still on Zosyn 3.375 g IV every 8 hours. We have asked to evaluate and make further recommendations. During my exam today, the patient states that overall he feels better. He reports fevers and chills and rigors prior to admission. He denies any headache or neck pain. He denies any congestion, earache, or sore throat. He denies chest pain, short of breath, or cough. He reports some nausea with dry heaving over the past couple of days. He denies any abdominal pain but reports a poor appetite. He denies any diarrhea or urinary complaints. He denies pain at the site of the ulcer due to severe peripheral neuropathy. He denies pain in any was extremities or back. He denies the oral thrush or new skin lesions. He states that the ulcer was foul smelling and draining some brown drainage. He reports is to the foot as well as swelling that spread up into the lower portion of the left leg. The patient lives at home with his . They have 3 dogs in the house. He denies any recent travel. He denies any alcohol, tobacco, or illicit drug use. He states his blood sugars have been a little high at home. CC: Whit Pantoja MD Past Med Surg Social Fam HX - Past Medical History Attestation: Yes The following information was validated with the patient. Source: patient, old records reviewed, nursing notes reviewed Medical history: cancer, coronary artery disease, diabetes, hyperlipidemia, hypertension, myocardial infarction, renal disease Psychiatric history: depression - Past Surgical History Surgical History: coronary bypass (CABG) - Social History Smoking Status: Never smoker Smokeless Tobacco Status: No Alcohol use: none Drug use: none Occupational status: retired Current living situation: Home - Independent Activity Level: Independent ambulation Recent Out of Country Travel Within the Last 8 Weeks: No Exposure or Possible Exposure to Illness During Travel: No - Family History Father Living Status: Age at : 82 Hx Family Cardiac Disorders: Yes ([place]) Mother Living Status: Age at : 84 Hx Family Cancer: Yes (Liver cancer) Infectious Disease-CN:Meds Calcitriol [Rocaltrol] 0.25 mcg PO DAILY 12/16/16 [History] Furosemide [Lasix] 20 mg PO DAILY PRN 12/16/16 [History] Insulin ASPART [Novolog Flexpen] 2 - 14 units SQ TID PRN 12/16/16 [History] Insulin Degludec [Tresiba Flextouch U-100] 80 unit SQ QPM 12/16/16 [History] Pregabalin [Lyrica] 100 mg PO DAILY 12/16/16 [History] Allergies No Known Allergies Allergy (Verified 12/15/16 23:08) All systems: reviewed and no additional remarkable complaints except as stated Exam - Constitutional Vitals: Temp Pulse Resp BP Pulse Ox 99.2 F 91 16 158/83 95 12/18/16 11:15 12/18/16 11:15 12/18/16 11:15 12/18/16 11:15 12/18/16 11:15 General appearance: cooperative, no acute distress, obese - Head Head exam: Present: atraumatic, normal inspection, normocephalic - Eye Eye exam: Present: EOMI, normal appearance, PERRL Pupils: Present: normal accommodation - ENT ENT exam: Present: mucous membranes moist - Neck Neck exam: Present: normal inspection - Respiratory Respiratory exam: Present: CTAB. Absent: rales, respiratory distress, rhonchi, wheezes - Cardiovascular Cardiovascular exam: Present: RRR, +S1, +S2 - GI/Abdominal GI/Abdominal exam: Present: distended (obese), normal bowel sounds, soft. Absent: tenderness - Extremities Exam Extremities exam: Present: pedal edema (1+ LLE). Absent: joint swelling, tenderness Additional comments: 0.5cm x 0.5cm ulcer noted to the plantar aspect of the left foot. Wound bed 60% necrosis, 40% slough. Foul odor noted. Purulent drainage noted on old dressing. Erythema noted to the dorsal aspect of the left foot. Mildly warm to touch. No lymphangitis noted. - Neurological Exam Neurological exam: Present: alert, oriented X3, no focal deficits - Psychiatric Psychiatric exam: Present: normal affect, normal mood - Skin Skin exam: Present: dry, intact, normal color, warm Infectious Disease CN: Results - Labs CBC & Chem 7: 12/18/16 01:07 12/18/16 01:07 Cultures: Cultures 12/16/16 21:12 Wound Culture - Preliminary Left Foot Group F Streptococcus Serology: Serology 12/16/16 Range/Units 05:45 Urine Color Yellow (Yellow) Urine Clarity Clear (Clear) Urine pH 6.0 (5.0-8.0) pH Units Ur Specific [place] 1.029 H (1.010-1.025) Urine Protein >=300 H (Neg-Trace) mg/dL Urine Glucose (UA) >=1000 H (Normal) mg/dL Urine Ketones Negative (Negative) mg/dL Urine Blood Trace H (Negative) Urine Nitrite Negative (Negative) Urine Bilirubin Negative (Negative) Urine Urobilinogen Normal (Normal) mg/dL Ur Leukocyte Esterase Negative (Negative) Urine Microscopic RBC 5-15 H (0-3) per hpf Urine Microscopic WBC 0-3 (0-3) per hpf Ur Squamous Epith Cells Moderate H (None-Few) per lpf Urine Bacteria None Seen (None-Few) per hpf Hyaline Casts None Seen (None-Few) per lpf Ur Culture Indicated? NO (NO) Consult Discharge Plan - Plan Referrals: Raoul Gaona, [Primary Care Provider] - Jasmin Cohen, TRANSITIONAL [employer] [Advanced Practice Nurse] - 01/02/17 8:30 am - Attending Attestation I examined this patient and my medical decision-making was reviewed with the Resident Physician. I agree with the documented findings, disposition and treatment plan as described except to the extent set forth below. This is an addendum to original report dictated by Jasmin Cohen CNP. Please refer to Cari note for full detail. Patient 71-year-old gentleman with past medical history mentioned above who apparently had about 2-3 weeks of sustained ulcer to the plantar after that the left foot digit. Patient is following up with podiatry up in [place]. Patient apparently has been having worsening redness and swelling in his leg and came in with sepsis like picture. MRI of the lower extremity showed cellulitis but no abscess or osteomyelitis. Cultures were positive for group F streptococcus. We were asked to evaluate the patient and make further recommendations. At this point will start the patient on cefazolin and will continue metronidazole caused his pulse smell and concern for possible anaerobic infection. Well dose adjust based on the creatinine clearance of the patient. Monitor labs. Duration of treatment depends on clinical picture but likely 6 weeks since I discussed the case with Dr. Mandel and he is concern for early osteomyelitis specially with an elevated inflammatory markers including ESR.
[2016-12-18] MEDS: *HR* HYDROcodone/Acet 5/325 mg TABLET PO PRN ×2 (14:42→22:25)
[2016-12-18] MEDS: metroNIDAZOLE 500 MG TABLET PO SCH ×2 (16:11→20:57)
--- NOTE | 2016-12-18 16:24 | Internal Med Progress Note ---
Date of Encounter: 12/18/16 Time of Encounter: 08:00 - Assessment and plan (1) Sepsis Current Visit: Yes Status: Acute Assessment and plan: From infected diabetic foot ulcer. Patient continues to have low-grade fever. Infectious disease consult ordered and we will follow recommendations. Wound culture positive for group F streptococcus. Blood cultures remain negative. Moderate risk for complications. Qualifiers: Sepsis type: sepsis due to unspecified organism Qualified Code(s): A41.9 - Sepsis, unspecified organism (2) Diabetic ulcer of left foot Current Visit: Yes Status: Chronic Assessment and plan: Evaluated by podiatry. NO surgery recommended. Continue IV antibiotics. Patient does have severely elevated ESR and CRP. Qualifiers: Diabetic foot ulcer location: midfoot Diabetes mellitus type: type 2 Non- pressure ulcer stage: unspecified non-pressure ulcer stage Qualified Code(s): E11.621 - Type 2 diabetes mellitus with foot ulcer; L97.429 - Non-pressure chronic ulcer of left heel and midfoot with unspecified severity (3) Left leg cellulitis Current Visit: Yes Status: Resolved Assessment and plan: This is mostly resolved (4) Diabetes mellitus Current Visit: Yes Status: Chronic Assessment and plan: Blood sugars remain elevated. We will increase long-acting insulin coverage dosage. Qualifiers: Diabetes mellitus type: type 2 Diabetes mellitus complication status: with neurologic complications Diabetes mellitus complication detail: with polyneuropathy Diabetes mellitus joint terminal attack controller insulin use: with joint terminal attack controller use Qualified Code(s): E11.42 - Type 2 diabetes mellitus with diabetic polyneuropathy; Z79.4 - detention (current) use of insulin (5) CHF (congestive heart failure) Current Visit: Yes Status: Chronic Assessment and plan: Not in acute exacerbation. Holding Lasix due to worsening renal function. Resume once renal function stabilizes. Qualifiers: Congestive heart failure type: diastolic Congestive heart failure chronicity: chronic Qualified Code(s): I50.32 - Chronic diastolic (congestive ) heart failure (6) Acute on chronic renal failure Current Visit: Yes Status: Suspected Assessment and plan: Renal function appears to be stabilizing. Creatinine at 2.22. Follow renal function closely. Qualifiers: Acute renal failure type: unspecified Chronic kidney disease stage: stage 3 (moderate) Qualified Code(s): N17.9 - Acute kidney failure, unspecified; N18.3 - Chronic kidney disease, stage 3 (moderate) (7) CKD (chronic kidney disease) Current Visit: Yes Status: Chronic Qualifiers: Chronic kidney disease stage: stage 3 (moderate) Qualified Code(s): N18.3 - Chronic kidney disease, stage 3 (moderate) (8) DVT prophylaxis Current Visit: Yes Status: Acute Assessment and plan: With subcutaneous heparin - Subjective Interval history: Patient continues to improve. No new complaints at this time. Denies any pain in his left foot. Having low-grade fever with MAXIMUM TEMPERATURE of 100.3 last night. - Constitutional Vitals: Temp Pulse Resp BP Pulse Ox 99.2 F 88 16 156/83 94 12/18/16 16:07 12/18/16 16:07 12/18/16 16:07 12/18/16 16:07 12/18/16 16:07 General appearance: Present: cooperative, A&O X 3, no acute distress, answers questions appropriately - Respiratory Respiratory exam: Present: CTAB. Absent: accessory muscle use, rales, rhonchi, wheezes - Cardiovascular Cardiovascular exam: Present: RRR, +S1, +S2. Absent: diastolic murmur, gallop, rubs, systolic murmur - GI/Abdominal GI/Abdominal exam: Present: normal bowel sounds, soft, no peritoneal signs. Absent: distended, tenderness - Extremities Exam Extremities exam: Present: warm, radial pulses palpable and symmetrical. Absent : calf tenderness, cyanotic, pedal edema Additional comments: Left foot ulcer appears stable. No signs of worsening infection. Internal Medicine: Result - Labs CBC & Chem 7: 12/18/16 01:07 12/18/16 01:07 Labs: Short CBC 12/18/16 Range/Units 01:07 WBC 9.3 (4.3-11.1) K/mcL Hgb 10.5 L (12.9-16.9) g/dL Hct 32.9 L (37.5-50.1) % Plt Count 284 (140-400) K/mcL Neutrophils # 7.4 (1.6-8.9) K/mcL BMP 12/18/16 01:07 Sodium 136 Potassium 3.9 Chloride 103 Carbon Dioxide 23 BUN 31 H Creatinine 2.22 H Glucose 224 H Calcium 9.0 - ABG Interpretation ABG results: PT/INR, D-dimer PT 12.5 Seconds (9.4-12.1) H 12/16/16 00:02 Consult Discharge Plan - Plan Referrals: Raoul Gaona DO [Primary Care Provider] - Jasmin Cohen, RICARDO [Advanced Practice Nurse] - 01/02/17 8:30 am
[2016-12-18] MEDS: ceFAZolin 2,000 MG in D5% in Water 100 ML IVPB SCH ×2 (17:21→22:30)
[2016-12-18] MEDS: Insulin DETEMIR 100 UNIT/ML X5UNITS SQ SCH (20:57)
[2016-12-19 05:05] LABS: Potassium 3.9 mEq/L (3.5-4.5)
[2016-12-19] MEDS: *HR* Heparin 5,000 UNIT/ML VIAL SQ SCH ×2 (05:41→17:25)
[2016-12-19] MEDS: ceFAZolin 2,000 MG in D5% in Water 100 ML IVPB SCH (06:50)
[2016-12-19] MEDS: Insulin LISPRO 300 UNITS/3 ML VIAL SQ SCH ×6 (07:40→20:49)
[2016-12-19] MEDS: metroNIDAZOLE 500 MG TABLET PO SCH ×3 (07:40→20:49)
[2016-12-19] MEDS: Insulin DETEMIR 100 UNIT/ML X5UNITS SQ SCH ×2 (08:01→17:25)
[2016-12-19] MEDS ORDERED: Insulin DETEMIR 100 UNIT/ML X5UNITS SQ ONE (10:53)
--- NOTE | 2016-12-19 10:56 | Internal Med Progress Note ---
Date of Encounter: 12/19/16 Time of Encounter: 10:40 - Assessment and plan (1) Sepsis Current Visit: Yes Status: Acute Assessment and plan: Secondary to infected diabetic foot ulcer Clinically improving afebrile ID consultation appreciated will continue IV abx as per ID at this time s/p EPIV placement, pt will be discharged to home with IV abx social service consultation requested for arrangement of iV abx upon discharge Wound culture positive for group F streptococcus and staph aureus . Blood cultures remain negative. Moderate risk for complications. Qualifiers: Sepsis type: sepsis due to unspecified organism Qualified Code(s): A41.9 - Sepsis, unspecified organism (2) Diabetic ulcer of left foot Current Visit: Yes Status: Chronic Assessment and plan: Evaluated by podiatry. NO surgery recommended. Continue IV antibiotics. Patient does have severely elevated ESR and CRP likely secondary to the underlying infection further plan as listed above Qualifiers: Diabetic foot ulcer location: midfoot Diabetes mellitus type: type 2 Non- pressure ulcer stage: unspecified non-pressure ulcer stage Qualified Code(s): E11.621 - Type 2 diabetes mellitus with foot ulcer; L97.429 - Non-pressure chronic ulcer of left heel and midfoot with unspecified severity (3) Left leg cellulitis Current Visit: Yes Status: Resolved Assessment and plan: This is mostly resolved (4) Diabetes mellitus Current Visit: Yes Status: Chronic Assessment and plan: Remains hyperglycemic Unable to get patient's home insulin while hospitalized increased to Levemir 32units q12h added humalog 7units TIDAC continue high dose insulin algorithm monitor FS and BG Qualifiers: Diabetes mellitus type: type 2 Diabetes mellitus complication status: with neurologic complications Diabetes mellitus complication detail: with polyneuropathy Diabetes mellitus long-term insulin use: with long-term use Qualified Code(s): E11.42 - Type 2 diabetes mellitus with diabetic polyneuropathy; Z79.4 - FPC (current) use of insulin (5) DVT prophylaxis Current Visit: Yes Status: Acute Assessment and plan: Heparin SQ (6) CHF (congestive heart failure) Current Visit: Yes Status: Chronic Assessment and plan: Not in acute exacerbation continue home medications Qualifiers: Congestive heart failure type: diastolic Congestive heart failure chronicity: chronic Qualified Code(s): I50.32 - Chronic diastolic (congestive ) heart failure (7) CKD (chronic kidney disease) Current Visit: Yes Status: Chronic Assessment and plan: Renal function at baseline will continue to monitor Qualifiers: Chronic kidney disease stage: stage 3 (moderate) Qualified Code(s): N18.3 - Chronic kidney disease, stage 3 (moderate) - Subjective Interval history: Pt seen and examined at bedside. Resting in bed and denies any discomfort at this time. States he is able to ambulate to the bathroom and back. No overnight issues reported Pt noted to be hyperglycemi, requiring 44 units of additional insulin coverage. - Constitutional Vitals: Temp Pulse Resp BP Pulse Ox 98.1 F 94 18 146/78 92 12/19/16 07:01 12/19/16 07:01 12/19/16 07:01 12/19/16 07:01 12/19/16 07:01 General appearance: Present: cooperative, A&O X 3, no acute distress, answers questions appropriately - Head Head exam: Present: atraumatic, normocephalic - Eye Eye exam: Present: conjuntiva pink, sclera anicteric - Respiratory Respiratory exam: Absent: respiratory distress, wheezes - Cardiovascular Cardiovascular exam: Present: RRR, +S1, +S2. Absent: diastolic murmur, gallop, rubs, systolic murmur - GI/Abdominal GI/Abdominal exam: Present: normal bowel sounds, soft, no peritoneal signs. Absent: distended, tenderness - Extremities Exam Extremities exam: Present: warm, radial pulses palpable and symmetrical (left foot wrapped in dressing ). Absent: calf tenderness - Neurological Exam Neurological exam: Present: alert, oriented X3 Internal Medicine: Result - Labs CBC & Chem 7: 12/18/16 01:07 12/19/16 04:15 Labs: BMP 12/19/16 04:15 Sodium 139 Potassium 3.9 Chloride 104 Carbon Dioxide 27 BUN 29 H Creatinine 2.23 H Glucose 113 H Calcium 9.0 - ABG Interpretation ABG results: PT/INR, D-dimer PT 12.5 Seconds (9.4-12.1) H 12/16/16 00:02 Consult Discharge Plan - Plan Referrals: Raoul Gaona DO [Primary Care Provider] - Jasmin Cohen, SURVEY WORKER [Advanced Practice Nurse] - 01/02/17 8:30 am
[2016-12-19] MEDS ORDERED: Furosemide 20 MG TABLET PO PRN (10:57)
--- NOTE | 2016-12-19 11:06 | Infectious Disease Progress No ---
Date of Encounter: 12/19/16 Time of Encounter: 11:04 - Assessment and Plan (1) Sepsis Current Visit: Yes Status: Acute The patient had two SIRS criteria on admission. Likely secondary to left foot ulcer infection and LLE cellulitis. Improved. The patient has been afebrile. Tachycardia has resolved. Blood cultures drawn 12/16/16 are NGTD 2/2 sets. Qualifiers: Sepsis type: sepsis due to unspecified organism Qualified Code(s): A41.9 - Sepsis, unspecified organism (2) Diabetic ulcer of left foot Current Visit: Yes Status: Chronic Location: Plantar aspect of the left foot. Etiology unclear. Patient denies any known trauma to the area. CT of the LLE showed findings consistent with cellulitis, but no abscess or osteomyelitis. MRI of the left foot negative for OM as well. ESR and CRP are markedly elevated at >130 and 158, respectively. Wound culture positive for Group F Strep and MSSA. Podiatry consulted and following. No surgical intervention required at this time. Given the clinical picture and his elevated ESR and CRP, I am concerned that there might be some underlying osteomyelitis. Case discussed with Dr Mandel who states he is suspicious for early osteomyelitis as well. As previously documented, the patient is agreeable to pursue long-term IV antibiotic therapy. We discussed the use of cefazolin TID vs. Nafcillin 24 hour infusion pump. The patient states he would like to do the 24 hour infusion. Discontinue cefazolin 2 grams IV Q8H. Continue flagyl 500mg PO TID. Start Nafcillin 2 grams IV Q4H now. Will dose as 24 hours continuous IV infusion on discharge. Duration of treatment depends on the clinical picture, but likely 6 weeks of IV antibiotics. Monitor renal function and dose-adjust antibiotics. Continue wound care and activity restrictions as outlined by the podiatry team. EPIV placed 12/18/16. Get weekly labs every Sunday for the duration of IV antibiotic therapy: CBC, BUN /Cr, ESR, and CRP. Weekly EPIV care per protocol. Follow up with ID 01/02/17 at 0830. Qualifiers: Diabetic foot ulcer location: midfoot Diabetes mellitus type: type 2 Non- pressure ulcer stage: unspecified non-pressure ulcer stage Qualified Code(s): E11.621 - Type 2 diabetes mellitus with foot ulcer; L97.429 - Non-pressure chronic ulcer of left heel and midfoot with unspecified severity (3) Left leg cellulitis Current Visit: Yes Status: Resolved Causative organism likely Group F Strep and MSSA. Improved. Continue antibiotics as above. (4) Acute on chronic renal failure Current Visit: Yes Status: Suspected Serum creatinine elevated from baseline at 2.62 on admission. Improved to 2.23 today. Continue to trend. Avoid nephrotoxins as able and dose-adjust antibiotics. Qualifiers: Acute renal failure type: unspecified Chronic kidney disease stage: stage 3 (moderate) Qualified Code(s): N17.9 - Acute kidney failure, unspecified; N18.3 - Chronic kidney disease, stage 3 (moderate) (5) Diabetes mellitus Current Visit: Yes Status: Chronic Uncontrolled. HgbA1C 11.5% on admission. Blood glucose levels continue to be elevated. Recommend aggressive glucose monitoring and control to promote wound healing and prevent re-infection. Qualifiers: Diabetes mellitus type: type 2 Diabetes mellitus complication status: with neurologic complications Diabetes mellitus complication detail: with polyneuropathy Diabetes mellitus correction insulin use: with motor builder assembler use Qualified Code(s): E11.42 - Type 2 diabetes mellitus with diabetic polyneuropathy; Z79.4 - head of english (current) use of insulin (6) CAD (coronary artery disease) Current Visit: Yes Status: Chronic Qualifiers: Coronary Disease-Associated Artery/Lesion type: [place] artery [place] vs. transplanted heart: [place] heart Associated angina: without angina Qualified Code(s): I25.10 - Atherosclerotic heart disease of [place] coronary artery without angina pectoris (7) CKD (chronic kidney disease) Current Visit: Yes Status: Chronic Qualifiers: Chronic kidney disease stage: stage 3 (moderate) Qualified Code(s): N18.3 - Chronic kidney disease, stage 3 (moderate) - Subjective Interval history: Patient seen and examined. No acute events noted overnight. Patient resting quietly in bed. Denies any fevers or chills or rigors. Denies any chest pain, shortness of breath, or cough. Denies any nausea, vomiting, diarrhea, constipation. States his appetite is better. Denies any abdominal pain or urinary complaints. Denies any oral thrush any skin lesions. Denies any pain at the site the diabetic foot ulcer. Infect Dis PN-Objective Data - Labs CBC & Chem 7: 12/18/16 01:07 12/19/16 04:15 Labs: Laboratory Results - last 24 hr 12/18/16 12/19/16 12/19/16 20:14 04:15 07:10 Sodium 139 Potassium 3.9 Chloride 104 Carbon Dioxide 27 BUN 29 H Creatinine 2.23 H Est GFR ( Amer) 36 L Est GFR (Non-Af Amer) 29 L BUN/Creatinine Ratio 13 Glucose 113 H POC Glucose 207 H 146 H Calculated Osmolality 295 Calcium 9.0 Cultures: Cultures 12/16/16 21:12 Wound Culture - Preliminary Left Foot Group F Streptococcus Staphylococcus aureus Serology 12/16/16 Range/Units 05:45 Urine Color Yellow (Yellow) Urine Clarity Clear (Clear) Urine pH 6.0 (5.0-8.0) pH Units Ur Specific [place] 1.029 H (1.010-1.025) Urine Protein >=300 H (Neg-Trace) mg/dL Urine Glucose (UA) >=1000 H (Normal) mg/dL Urine Ketones Negative (Negative) mg/dL Urine Blood Trace H (Negative) Urine Nitrite Negative (Negative) Urine Bilirubin Negative (Negative) Urine Urobilinogen Normal (Normal) mg/dL Ur Leukocyte Esterase Negative (Negative) Urine Microscopic RBC 5-15 H (0-3) per hpf Urine Microscopic WBC 0-3 (0-3) per hpf Ur Squamous Epith Cells Moderate H (None-Few) per lpf Urine Bacteria None Seen (None-Few) per hpf Hyaline Casts None Seen (None-Few) per lpf Ur Culture Indicated? NO (NO) Exam - Constitutional Vitals: Temp Pulse Resp BP Pulse Ox 98.1 F 94 18 146/78 92 12/19/16 07:01 12/19/16 07:01 12/19/16 07:01 12/19/16 07:01 12/19/16 07:01 General appearance: average body habitus, cooperative, no acute distress, obese - Head Head exam: Present: atraumatic, normal inspection, normocephalic - Eye Eye exam: Present: EOMI, normal appearance, PERRL Pupils: Present: normal accommodation - ENT ENT exam: Present: mucous membranes moist - Neck Neck exam: Present: normal inspection - Respiratory Respiratory exam: Present: CTAB. Absent: rales, respiratory distress, rhonchi, wheezes - Cardiovascular Cardiovascular exam: Present: RRR, +S1, +S2 - GI/Abdominal GI/Abdominal exam: Present: distended (obese), normal bowel sounds, soft. Absent: tenderness - Extremities Exam Extremities exam: Present: pedal edema (Trace LLE). Absent: joint swelling, tenderness Additional comments: Left foot dressing C/D/I. - Neurological Exam Neurological exam: Present: alert, oriented X3, no focal deficits - Psychiatric Psychiatric exam: Present: normal affect, normal mood - Skin Skin exam: Present: dry, intact, normal color, warm - Additional findings Additional findings: EPIV noted to the LUE with transparent dressing C/D/I. Consult Discharge Plan - Plan Referrals: Raoul Gaona DO [Primary Care Provider] - Jasmin Cohen CNP [Advanced Practice Nurse] - 01/02/17 8:30 am Prescriptions: metroNIDAZOLE [Flagyl] 500 mg PO TID #126 tab Nafcillin 12 gm IV Q24H #42 vial - Attending Attestation I examined this patient and my medical decision-making was reviewed with the Resident Physician. I agree with the documented findings, disposition and treatment plan as described except to the extent set forth below.
[2016-12-19] MEDS ORDERED: Nafcillin 2,000 MG in D5% in Water (Mini-Bag+) 100 ML IVPB SCH (12:00)
[2016-12-19] MEDS: Nafcillin 2,000 MG in D5% in Water (Mini-Bag+) 100 ML IVPB SCH ×2 (19:51→23:19)
[2016-12-19] MEDS: *HR* HYDROcodone/Acet 5/325 mg TABLET PO PRN (23:19)
[2016-12-20] MEDS: Nafcillin 2,000 MG in D5% in Water (Mini-Bag+) 100 ML IVPB SCH ×3 (03:05→10:33)
[2016-12-20 05:10] LABS: Basophils % 0.2 %; Eosinophils % 0.3 %; Hematocrit 30.6 % (37.5-50.1); Hemoglobin 10.1 g/dL (12.9-16.9); Immature Granulocytes % 0.8 % (0-4); Lymphocytes # 1.1 K/mcL (0.6-4.6); Lymphocytes % 12.3 %; Mean Corpuscular Hemoglobin 29.6 pg (28.0-33.3); Mean Corpuscular Volume 89.7 fL (83.0-100.0); Mean Platelet Volume 9.9 fL (9.4-12.4); Monocytes # 0.8 K/mcL (0.0-1.3); Monocytes % 8.7 %; Neutrophils # 7.1 K/mcL (1.6-8.9); Platelet Count 288 K/mcL (140-400); Red Blood Count 3.41 M/mcL (4.19-5.50); Red Cell Distribution Width 12.4 % (11.5-14.5); Segmented Neutrophils % 77.7 %
[2016-12-20 05:24] LABS: Calcium 8.9 mg/dL (8.6-10.8); Magnesium 1.7 mg/dL (1.6-2.6); Phosphorous 4.5 mg/dL (2.3-4.7); Potassium 3.4 mEq/L (3.5-4.5)
[2016-12-20] MEDS: *HR* Heparin 5,000 UNIT/ML VIAL SQ SCH (06:11)
[2016-12-20] MEDS: Insulin LISPRO 300 UNITS/3 ML VIAL SQ SCH ×2 (08:02→08:03)
[2016-12-20] MEDS: metroNIDAZOLE 500 MG TABLET PO SCH (08:03)
[2016-12-20] MEDS ORDERED: Pregabalin 50 MG CAPSULE PO SCH (09:00)
[2016-12-20] MEDS: Insulin DETEMIR 100 UNIT/ML X5UNITS SQ SCH (09:09)
[2016-12-20] MEDS: amLODIPine 5 MG TABLET PO SCH ×2 (09:09)
--- NOTE | 2016-12-20 09:11 | Discharge Summary ---
Date of Encounter: 12/20/16 Time of Encounter: 09:05 - Discharge Diagnosis (1) Sepsis Priority: Primary Status: Resolved Qualifiers: Sepsis type: sepsis due to unspecified organism Qualified Code(s): A41.9 - Sepsis, unspecified organism (2) Diabetic ulcer of left foot Priority: Primary Status: Acute Qualifiers: Diabetic foot ulcer location: midfoot Diabetes mellitus type: type 2 Non- pressure ulcer stage: unspecified non-pressure ulcer stage Qualified Code(s): E11.621 - Type 2 diabetes mellitus with foot ulcer; L97.429 - Non-pressure chronic ulcer of left heel and midfoot with unspecified severity (3) Left leg cellulitis Priority: Secondary Status: Resolved (4) Diabetes mellitus Priority: Secondary Status: Chronic Qualifiers: Diabetes mellitus type: type 2 Diabetes mellitus complication status: with neurologic complications Diabetes mellitus complication detail: with polyneuropathy Diabetes mellitus assisted insulin use: with termite technician use Qualified Code(s): E11.42 - Type 2 diabetes mellitus with diabetic polyneuropathy; Z79.4 - shelter (current) use of insulin (5) DVT prophylaxis Priority: Secondary Status: Acute (6) CHF (congestive heart failure) Priority: Secondary Status: Chronic Qualifiers: Congestive heart failure type: diastolic Congestive heart failure chronicity: chronic Qualified Code(s): I50.32 - Chronic diastolic (congestive ) heart failure (7) CKD (chronic kidney disease) Priority: Secondary Status: Chronic Qualifiers: Chronic kidney disease stage: stage 3 (moderate) Qualified Code(s): N18.3 - Chronic kidney disease, stage 3 (moderate) - Discharge Medications Prescriptions: HYDROcodone/Acet 5/325 mg [[place] 5-325 mg] 1 tab PO Q6H PRN #10 tab PRN Reason: Severe Pain metroNIDAZOLE [Flagyl] 500 mg PO TID #126 tab Nafcillin 12 gm IV Q24H #42 vial Home Medications: Calcitriol [Rocaltrol] 0.25 mcg PO DAILY 12/16/16 [History] Furosemide [Lasix] 20 mg PO DAILY PRN 12/16/16 [History] Insulin ASPART [Novolog Flexpen] 2 - 14 units SQ TID PRN 12/16/16 [History] Insulin Degludec [Tresiba Flextouch U-100] 80 unit SQ QPM 12/16/16 [History] Pregabalin [Lyrica] 100 mg PO DAILY 12/16/16 [History] Nafcillin 12 gm IV Q24H #42 vial 12/19/16 [Rx] metroNIDAZOLE [Flagyl] 500 mg PO TID #126 tab 12/19/16 [Rx] HYDROcodone/Acet 5/325 mg [[place] 5-325 mg] 1 tab PO Q6H PRN #10 tab 12/20/16 [Rx ] Allergies/Adverse Reactions: Allergies No Known Allergies Allergy (Verified 12/15/16 23:08) Date of admission: 12/16/16 03:11 Primary care physician: Raoul Gaona Consults: 12/16/16 03:27 Consult to Podiatry [CONS] Routine Consulting Provider: [facility] Reason for Consult: Left diabetic foot ulcer with likely left leg cellulitis. Appreciate podiatry evaluation and recommendations. Call Completed: No 12/16/16 04:28 Consult to Food Inspector [CONS] Routine Reason for SW Consult: potential need for Home Health, wound care 12/17/16 11:49 Consult to Infectious Diseases [CONS] Routine Consulting Provider: Infectious Disease [facility] Reason for Consult: Diabetic foot ulcer with cellulitis Call Completed: No 12/18/16 14:49 Consult to Invasive Line Access Team [CONS] Routine Reason for Consult: EPIV placement Line Type: EPIV PICC line indications: shelter Med/Antibiotic Time Notified: 14:50 Call Completed: Yes Discharging clinician: Theresa Vaz Anticipated date of discharge: 12/20/16 - Patient Status Disposition: Home Health Service Condition: Good Functional capacity at discharge: uses cane/walker Overall status at discharge: patient is back to baseline - Discharge Instructions Instructions: Diabetes Mellitus Type 2 in Adults (DC), Acute Wound Care (DC), Diabetic Foot Ulcers (DC) Follow Up With: Raoul Gaona DO [Primary Care Provider] - Jasmin Cohen AGRICULTURAL ENGINEERING TECHNOLOGIST [Advanced Practice Nurse] - 01/02/17 8:30 am Additional Instructions: Please follow up with your primary care physician within five days after your discharge from the hospital. Please follow up with Infectious disease specialist and podiatry within one week after your discharge from the hospital. Please continue IV antibiotics as prescribed by the Infectious disease specialist. Please resume all your home medications as prescribed by your primary care physician. - Diet and Activity Activity: increase activity as tolerated Diet: diabetic diet, low salt diet Hospital course: Mr. Anguiano is a 71 year old male with PMH of DM, CKD, HTN, CAD, CABG, CHF who was admitted for sepsis secondary to infected diabetic foot ulcer. He was started on empiric IV abx and was evaluated by podiatry and infectious disease. No surgical intervention was recommended by podiatry and IV abx were continued by ID specialist. Given patient's clinical presentation, there was a concern for early signs of osteomyelitis due to which he is to continue on IV abx after discharge. As per ID,pt will be discharged on IV abx with an outpatient follow up. He is currently hemodynamically stable and will be discharged to home with follow up with ID, podiatry, and PCP. Home health services have been set up for home IV abx infusion. Pt and family demonstrate understanding of his diagnosis and agree with the discharge care and plan. - Time Spent with Patient Total time spent providing and/or coordinating discharge services: Less than 30 minutes - Constitutional Vitals: Temp Pulse Resp BP Pulse Ox 98.7 F 91 16 157/84 95 12/20/16 06:43 12/20/16 06:43 12/20/16 06:43 12/20/16 06:43 12/20/16 06:43 General appearance: Present: cooperative, A&O X 3, no acute distress, answers questions appropriately - Head Head exam: Present: atraumatic, normocephalic - Respiratory Respiratory exam: Absent: respiratory distress, wheezes - Cardiovascular Cardiovascular exam: Present: RRR, +S1, +S2. Absent: diastolic murmur, gallop, rubs, systolic murmur - GI/Abdominal GI/Abdominal exam: Present: normal bowel sounds, soft, no peritoneal signs. Absent: distended, tenderness - Extremities Exam Extremities exam: Present: radial pulses palpable and symmetrical. Absent: calf tenderness (left foot dressing intact) - Neurological Exam Neurological exam: Present: alert, oriented X3 - Psychiatric Psychiatric exam: Present: normal affect, normal mood
--- NOTE | 2016-12-20 09:17 | Physician Discharge Referral ---
Home Health/Hosp Referral Info Transfer to: Home Health Provider in Charge Post Discharge: PCP - Diagnosis (1) Sepsis Priority: Primary Status: Resolved (2) Diabetic ulcer of left foot Priority: Primary Status: Acute (3) Left leg cellulitis Priority: Secondary Status: Resolved (4) Diabetes mellitus Priority: Secondary Status: Chronic (5) DVT prophylaxis Priority: Secondary Status: Acute (6) CHF (congestive heart failure) Priority: Secondary Status: Chronic (7) CKD (chronic kidney disease) Priority: Secondary Status: Chronic - Respiratory Orders Smoking Cessation: Smoking cessation has been advised. For more information, call the [place] Tobacco Quit Line at 3-798-WQSW-NOW. - Services Needed Following services are medically necessary services: Nursing, Home Health Aide, Physical Therapy, Occupational Therapy, Med Social Work, Home Infusion - Transfer Medications Prescriptions: HYDROcodone/Acet 5/325 mg [[place] 5-325 mg] 1 tab PO Q6H PRN #10 tab PRN Reason: Severe Pain metroNIDAZOLE [Flagyl] 500 mg PO TID #126 tab Nafcillin 12 gm IV Q24H #42 vial Home Medications: Calcitriol [Rocaltrol] 0.25 mcg PO DAILY 12/16/16 [History] Furosemide [Lasix] 20 mg PO DAILY PRN 12/16/16 [History] Insulin ASPART [Novolog Flexpen] 2 - 14 units SQ TID PRN 12/16/16 [History] Insulin Degludec [Tresiba Flextouch U-100] 80 unit SQ QPM 12/16/16 [History] Pregabalin [Lyrica] 100 mg PO DAILY 12/16/16 [History] Nafcillin 12 gm IV Q24H #42 vial 12/19/16 [Rx] metroNIDAZOLE [Flagyl] 500 mg PO TID #126 tab 12/19/16 [Rx] HYDROcodone/Acet 5/325 mg [[place] 5-325 mg] 1 tab PO Q6H PRN #10 tab 12/20/16 [Rx ] Allergies/Adverse Reactions: Allergies No Known Allergies Allergy (Verified 12/15/16 23:08) Certification: Further, I certify that my clinical findings support that this patient is homebound (i.e. absences from home require considerable and taxing effort and are for medical reasons or [employer] services or infrequently or short duration when for other reasons) because: Homebound Reason: Patient requires assistance of a person or device to safely leave home Attestation: My signature below is to certify that this patient is under my care and that I, or nurse practitioner, or a physician's engineer first assistant working with me, has a face-to -face encounter with this patient.
[2016-12-20 11:16] VITALS: BP 147/74
== END 2016-12-20 11:59 | disposition home health service (06) | DRG 872 ==
LOC: 3NENU 22:41 → EMEROO 22:41 → SUATTDRO 12-16 03:11 → 3NENU 12-16 04:00
PROVIDERS: ADMIT Internal Medicine; ATTEND Internal Medicine

== ENCOUNTER 2017-01-02 13:53 | Inpatient (IN) ==
[2017-01-02] MEDS ORDERED: 0.9 % Sodium Chloride 1,000 ML IVC ONE (15:40)
[2017-01-02 16:00] LABS: Basophils # 0.1 K/mcL (0.0-0.2); Basophils % 0.8 %; Eosinophils # 0.2 K/mcL (0.0-0.6); Eosinophils % 2.6 %; Hematocrit 28.6 % (37.5-50.1); Hemoglobin 8.8 g/dL (12.9-16.9); Immature Granulocytes % 0.5 % (0-4); Lymphocytes # 1.3 K/mcL (0.6-4.6); Lymphocytes % 19.2 %; Mean Corpuscular HGB Conc 30.8 g/dL (31.6-35.5); Mean Corpuscular Volume 94.4 fL (83.0-100.0); Monocytes # 0.5 K/mcL (0.0-1.3); Monocytes % 7.1 %; Neutrophils # 4.6 K/mcL (1.6-8.9); Platelet Count 644 K/mcL (140-400); Red Blood Count 3.03 M/mcL (4.19-5.50); Red Cell Distribution Width 14.3 % (11.5-14.5); Segmented Neutrophils % 69.8 %
[2017-01-02 16:05] LABS: INR 1.1; Prothrombin Time 12.1 Seconds (9.4-12.1)
[2017-01-02 16:08] LABS: Activated Partial Thrombo Time 32.4 Seconds (26.0-36.0)
[2017-01-02 16:22] LABS: Calcium 8.8 mg/dL (8.6-10.8); Potassium 5.4 mEq/L (3.5-4.5)
--- NOTE | 2017-01-02 16:27 | Emergency Department Note ---
Disposition Clinical Impression: Anemia Qualifiers: Anemia type: unspecified type Qualified Code(s): D64.9 - Anemia, unspecified GI bleed Qualifiers: GI bleed type/associated pathology: melena Qualified Code(s): K92.1 - Melena Disposition: Admitted As Inpatient Condition: Fair Instructions: Gastrointestinal Bleeding (ED) Referrals: Raoul Gaona DO [Primary Care Provider] - Forms: ED Satisfaction Letter Time of Disposition: 19:47 Recheck wound or abnormal lab - General Chief Complaint: ED Recheck/Abnormal Lab/Rx Stated Complaint: low blood count per PCP Time Seen by Provider: 01/02/17 15:08 Source: patient Limitations: no limitations Nursing Notes Reviewed: Yes Vital Signs Reviewed: Yes - History of Present Illness HPI Narrative: Mr. Anguiano, 72-year-old male, presents from home by POV for evaluation of low hemoglobin. He was called by his PCP this afternoon and told to present to the emergency department. Patient has a PICC in his left upper arm for at home IV antibiotics secondary to diabetic ulcer in his left plantar foot. He notes two- week history of dark black loose stools. He notes that he is not sleeping more than usual but denies weakness. No shortness of breath, chest pains, palpitations, diaphoresis. His daughter at bedside notes he appears slightly more pale than usual. PMH: CABG 4, CJD stage III, diabetes, left plantar foot diabetic ulcer for which she was previously admitted for sepsis and currently on at-home breaux myosin through left upper extremity PICC. No history of previous GI bleed. ROS: Positive: Melena, increased fatigue Negative: Hematochezia, hematuria, chest pain, shortness of breath, palpitations , diaphoresis - Related Data Home Medications Medication Instructions Recorded Confirmed Calcitriol [Rocaltrol] 0.25 mcg PO DAILY 12/16/16 01/02/17 Furosemide [Lasix] 20 mg PO DAILY PRN 12/16/16 01/02/17 Insulin ASPART [Novolog Flexpen] 0 units SQ TID 12/16/16 01/02/17 Insulin Degludec [Tresiba 80 unit SQ HS 12/16/16 01/02/17 Flextouch U-100] Clopidogrel [Plavix] 75 mg PO DAILY 01/02/17 01/02/17 Docusate [Colace] 200 mg PO DAILY 01/02/17 01/02/17 Finasteride [Proscar] 5 mg PO DAILY 01/02/17 01/02/17 Fluticasone Propionate Nasal 100 mcg NS DAILY PRN 01/02/17 01/02/17 [Flonase] Glimepiride [Amaryl] 4 mg PO DAILY 01/02/17 01/02/17 HYDROcodone/Acet 5/325 mg [[place] 1 tab PO Q8H PRN 01/02/17 01/02/17 5-325 mg] Metoprolol XL (24 HR) Succ [Toprol 25 mg PO DAILY 01/02/17 01/02/17 XL] Nitroglycerin [Nitrostat] 0.4 mg SL Q5M PRN 01/02/17 01/02/17 Omeprazole [PriLOSEC] 40 mg PO DAILY 01/02/17 01/02/17 Rosuvastatin [Crestor] 40 mg PO HS 01/02/17 01/02/17 Saxagliptin HCl [Onglyza] 5 mg PO DAILY 01/02/17 01/02/17 Sertraline [Zoloft] 100 mg PO DAILY 01/02/17 01/02/17 carBAMazepine [Tegretol] 200 mg PO Q12H 01/02/17 01/02/17 Previous Rx's Medication Instructions Recorded Nafcillin 12 gm IV Q24H #42 vial 12/19/16 metroNIDAZOLE [Flagyl] 500 mg PO TID #126 tab 12/19/16 Allergies Allergy/AdvReac Type Severity Reaction Status Date / Time No Known Allergies Allergy Verified 12/28/16 09:44 Past Medical History - Past Medical History Medical history: Reports: cancer, coronary artery disease, diabetes, hyperlipidemia, hypertension, myocardial infarction, renal disease Surgical history: Reports: coronary bypass (CABG) Psychiatric history: Reports: depression - Social History Smoking Status: Never smoker Smokeless Tobacco Status: No Alcohol use: Reports: none Drug use: Reports: none Physical Exam Vital Signs Reviewed General: Patient is alert, oriented, and in no acute distress. HEENT: No facial asymmetry. Head is normocephalic and atraumatic. PERRLA, EOMI. Nasal turbinates moist and pink. Posterior pharynx without exudates or cobblestoning. Trachea midline, no palpable thyroid nodules, no thyromegaly. Conjunctival pallor. Cardiovascular: Heart regular rate and rhythm without clicks, rubs, gallops, or murmurs. No JVD. PMI nondisplaced. Respiratory: Symmetric chest rise with good respiratory effort. Bilateral breath sounds are clear without wheezing, crackles, or rhonchi. Abdomen: Obese. Bowel sounds present normoactive x-4 quadrants. Abdomen is soft , nondistended, and nontender. Unable to assess organomegaly secondary to patient body habitus. Rectal: Good rectal tone. Scant stool on glove fingertip which was neither melanotic or bright red. FOBT submitted. Psych: Patient's affect is appropriate for situation. - General Limitations: no limitations General appearance: alert, in no apparent distress Course Course Narrative: Patient's hemoglobin is slowly falling. He is not yet below threshold of 7.0. Additionally, he is clinically stable at this time. Will CT abdomen and pelvis to rule out bowel obstruction. CT and pelvis unremarkable for acute findings. Patient's troponin is 0. Lactate is negative. Serum creatinine is elevated however this is consistent with his chronic baseline. Fecal occult blood test positive. Spoke with [facility] hospitalist, Dr. Pena, who agrees to accept the patient for serial H&H and possible colonoscopy. Abdomen/Pelvis CT 01/02/17 16:52 IMPRESSION: 1. No acute intra-abdominal or intrapelvic process. 2. Cholelithiasis. 3. Benign bilateral renal cysts. 4. Mild prostatomegaly. 5. Trace bilateral pleural effusions with mild bibasilar atelectasis. 6. Two small subcentimeter right basilar pulmonary nodules, the larger measuring 4 mm within the right lower lobe. Further follow-up of these nodules is as advised below. RECOMMENDATIONS: Fleischner Society guidelines for follow-up and management of incidentally detected pulmonary nodules: Multiple Solid Nodules: Nodule size less than 6 mm In a low-risk patient, no routine follow-up. In a high-risk patient, optional CT at 12 months. - Low risk patients include individuals with minimal or absent history of smoking and other known risk factors. - High risk patients include individuals with a history or smoking or known risk factors. Radiology 2017 http://pubs.rsna.org/doi/full/10.1148/radiol.2092700880 D/ /02/2017 17:51:29 Lui Roberson MD / cristino Interpreting Provider: Lui Roberson MD Vital Signs Temperature 98.5 F 01/02/17 14:02 Pulse Rate 54 01/02/17 14:02 Respiratory Rate 16 01/02/17 14:02 Blood Pressure 117/73 01/02/17 14:02 O2 Sat by Pulse Oximetry 98 01/02/17 14:02 Temperature 98.5 F 01/02/17 14:02 Pulse Rate 82 01/02/17 19:04 Respiratory Rate 16 01/02/17 19:04 Blood Pressure 196/94 01/02/17 19:04 O2 Sat by Pulse Oximetry 98 01/02/17 19:04 Oxygen Delivery Oxygen Delivery Room Air Recheck wound or abnormal lab - Lab Data Result diagrams: 01/02/17 15:51 01/02/17 15:51 Lab Results 01/02/17 01/02/17 01/02/17 Range/Units 15:51 15:51 15:51 WBC 6.6 (4.3-11.1) K/mcL RBC 3.03 L (4.19-5.50) M/mcL Hgb 8.8 L (12.9-16.9) g/dL Hct 28.6 L (37.5-50.1) % MCV 94.4 (83.0-100.0) fL MCH 29.0 (28.0-33.3) pg MCHC 30.8 L (31.6-35.5) g/dL RDW 14.3 (11.5-14.5) % Plt Count 644 H (140-400) K/mcL MPV 9.0 L (9.4-12.4) fL Immature Gran % 0.5 (0-4) % Seg Neutrophils % 69.8 % Lymphocytes % 19.2 % Monocytes % 7.1 % Eosinophils % 2.6 % Basophils % 0.8 % Neutrophils # 4.6 (1.6-8.9) K/mcL Lymphocytes # 1.3 (0.6-4.6) K/mcL Monocytes # 0.5 (0.0-1.3) K/mcL Eosinophils # 0.2 (0.0-0.6) K/mcL Basophils # 0.1 (0.0-0.2) K/mcL Immature Plt Fraction 1.0 L (1.1-6.1) % PT 12.1 (9.4-12.1) Seconds INR 1.1 APTT 32.4 (26.0-36.0) Seconds Sodium 140 (136-145) mEq/L Potassium 5.4 H (3.5-4.5) mEq/L Chloride 105 (98-109) mEq/L Carbon Dioxide 27 (19-29) mEq/L BUN 39 H (8-26) mg/dL Creatinine 2.29 H (0.72-1.25) mg/dL Est GFR ( Amer) 34 L (> 60) Est GFR (Non-Af Amer) 28 L (> 60) BUN/Creatinine Ratio 17 (6-26) Glucose 467 H (70-99) mg/dL Calculated Osmolality 320 H (280-300) Lactic Acid (0.5-2.2) mmol/L Calcium 8.8 (8.6-10.8) mg/dL Troponin I (0-0.03) ng/mL Lipase 35 (8-78) Units/L Stool Occult Blood (Negative) Blood Type Antibody Screen 01/02/17 01/02/17 01/02/17 Range/Units 15:51 15:51 15:51 WBC (4.3-11.1) K/mcL RBC (4.19-5.50) M/mcL Hgb (12.9-16.9) g/dL Hct (37.5-50.1) % MCV (83.0-100.0) fL MCH (28.0-33.3) pg MCHC (31.6-35.5) g/dL RDW (11.5-14.5) % Plt Count (140-400) K/mcL MPV (9.4-12.4) fL Immature Gran % (0-4) % Seg Neutrophils % % Lymphocytes % % Monocytes % % Eosinophils % % Basophils % % Neutrophils # (1.6-8.9) K/mcL Lymphocytes # (0.6-4.6) K/mcL Monocytes # (0.0-1.3) K/mcL Eosinophils # (0.0-0.6) K/mcL Basophils # (0.0-0.2) K/mcL Immature Plt Fraction (1.1-6.1) % PT (9.4-12.1) Seconds INR APTT (26.0-36.0) Seconds Sodium (136-145) mEq/L Potassium (3.5-4.5) mEq/L Chloride (98-109) mEq/L Carbon Dioxide (19-29) mEq/L BUN (8-26) mg/dL Creatinine (0.72-1.25) mg/dL Est GFR ( Amer) (> 60) Est GFR (Non-Af Amer) (> 60) BUN/Creatinine Ratio (6-26) Glucose (70-99) mg/dL Calculated Osmolality (280-300) Lactic Acid 1.3 (0.5-2.2) mmol/L Calcium (8.6-10.8) mg/dL Troponin I 0.01 (0-0.03) ng/mL Lipase (8-78) Units/L Stool Occult Blood (Negative) Blood Type A POSITIVE Antibody Screen NEGATIVE 01/02/17 Range/Units 16:30 WBC (4.3-11.1) K/mcL RBC (4.19-5.50) M/mcL Hgb (12.9-16.9) g/dL Hct (37.5-50.1) % MCV (83.0-100.0) fL MCH (28.0-33.3) pg MCHC (31.6-35.5) g/dL RDW (11.5-14.5) % Plt Count (140-400) K/mcL MPV (9.4-12.4) fL Immature Gran % (0-4) % Seg Neutrophils % % Lymphocytes % % Monocytes % % Eosinophils % % Basophils % % Neutrophils # (1.6-8.9) K/mcL Lymphocytes # (0.6-4.6) K/mcL Monocytes # (0.0-1.3) K/mcL Eosinophils # (0.0-0.6) K/mcL Basophils # (0.0-0.2) K/mcL Immature Plt Fraction (1.1-6.1) % PT (9.4-12.1) Seconds INR APTT (26.0-36.0) Seconds Sodium (136-145) mEq/L Potassium (3.5-4.5) mEq/L Chloride (98-109) mEq/L Carbon Dioxide (19-29) mEq/L BUN (8-26) mg/dL Creatinine (0.72-1.25) mg/dL Est GFR ( Amer) (> 60) Est GFR (Non-Af Amer) (> 60) BUN/Creatinine Ratio (6-26) Glucose (70-99) mg/dL Calculated Osmolality (280-300) Lactic Acid (0.5-2.2) mmol/L Calcium (8.6-10.8) mg/dL Troponin I (0-0.03) ng/mL Lipase (8-78) Units/L Stool Occult Blood Positive A (Negative) Blood Type Antibody Screen Attestation Statement - Attestation Attestation: I examined this patient and my medical decision-making was reviewed with the Resident Physician. I agree with the documented findings, disposition and treatment plan as described except to the extent set forth below. In summary 9- year-old male with concern for GI bleed. Hemoglobin is found to be low. No indication for transfusion at this time. Subsequent leak on have acute kidney injury. We will proceed with admission for serial H&H, GI consultation.
--- NOTE | 2017-01-02 20:37 | Internal Med History&Physical ---
<Jamil Richard - Last Filed: 01/02/17 23:18> Date of Encounter: 01/02/17 Time of Encounter: 20:32 Assessment and Plan (1) GI bleed Current visit: Yes Status: Acute The patient reports a two week history of dark black loose stools and fatigue. His fecal occult blood test was positive in the ED. CT and pelvis unremarkable for acute findings. Lactate is negative. Patient reports history of colon plyps and having three colonoscopies in the past. His most recent colonoscopy was performed 2 months ago at [facility] by Dr. Raoul Gaona and revealed hemorrhoids Protonix 40mg IV BID. Monitor serial H&H NPO diet, consult GI for possible colonoscopy. Qualifiers: GI bleed type/associated pathology: melena Qualified Code(s): K92.1 - Melena (2) Anemia Current visit: Yes Status: Acute Patient presented from home after he was told to go to the ED by his PCP office for low hemoglobin. HGB 8.8 on admission, baseline HGB is ~10. Qualifiers: Anemia type: due to chronic kidney disease Chronic kidney disease stage: stage 3 (moderate) Qualified Code(s): N18.3 - Chronic kidney disease, stage 3 (moderate); D63.1 - Anemia in chronic kidney disease Code(s): D64.9 - Anemia, unspecified (3) DANIE (acute kidney injury) Current visit: Yes Status: Acute Continue IV hydration. Continue to monitor. (4) Diabetic ulcer of left foot Current visit: No Status: Acute Infected left plantar diabetic foot ulcer with concern for possible early osteomyelitis. Wound culture positive for Group F Strep. Patient has a PICC line in place for IV antibiotics. Continue current antibiotic regimen ( Nafcillin 12 grams IV Q24 hours via continuous IV infusion pump for a total of 6 weeks and Flagyl 500mg PO TID) per ID recommendations. ID/ Jasmin Cohen CNP and Podiatry/ Dr. Mandel following as outpatient. Consult podiatry to continue to follow while inpatient Qualifiers: Diabetic foot ulcer location: midfoot Diabetes mellitus type: type 2 Non- pressure ulcer stage: unspecified non-pressure ulcer stage Qualified Code(s): E11.621 - Type 2 diabetes mellitus with foot ulcer; L97.429 - Non-pressure chronic ulcer of left heel and midfoot with unspecified severity (5) Diabetes mellitus Current visit: No Status: Chronic HgbA1C 11.5% on 12/16/16. Continue home insulin regimen. Monitor blood glucose. Resume ADA diabetic diet once cleared by GI. 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 Hold Plavix due to active GI bleed. Qualifiers: Coronary Disease-Associated Artery/Lesion type: [place] artery [place] vs. transplanted heart: [place] heart Associated angina: without angina Qualified Code(s): I25.10 - Atherosclerotic heart disease of [place] coronary artery without angina pectoris (7) CKD (chronic kidney disease) Current visit: No Status: Chronic Stage III. Avoid nephrotoxins. Continue to monitor. Qualifiers: Chronic kidney disease stage: stage 3 (moderate) Qualified Code(s): N18.3 - Chronic kidney disease, stage 3 (moderate) (8) Hyperkalemia Current visit: Yes Status: Acute Continue home Lasix, Insulin, and IV hydration. Repeat labs in AM. (9) Thrombocytosis Current visit: Yes Status: Acute Likely reactive thrombocytosis. Continue to monitor. (10) Obesity (BMI 30.0-34.9) Current visit: Yes Status: Acute Diet and exercise reviewed with patient (11) DVT prophylaxis Current visit: No Status: Acute SCDs. No further anticoagulation at this time secondary to acute GI bleed. Internal Medicine - H&P: HPI Admitted From: Home History of present illness: Mr. Anguiano is a 72 year old male with a PMH of DM, CKD stage 3, HTN, CAD, CABG, CHF, and recent admission for sepsis secondary to infected left plantar diabetic foot ulcer presented from home after he was told to go to the ED by his PCP office for low hemoglobin. The patient reports a two week history of dark black loose stools and fatigue. Patient is currently taking ASA and Plavix due to prior cardiac stents x9 and has a PICC line in place for home IV antibiotics. He reports minimal bleeding from his left foot ulcer today following bedside I&D of left foot ulcer this morning at his cost manager's office. His fecal occult blood test was positive in the ED. Patient denies fever , chills, chest pain, palpitations, shortness of breath, hemoptysis, hematochezia, hematuria, iron supplementation, or previous history of GI bleed. Patient reports history of colon plyps and having three colonoscopies in the past. His most recent colonoscopy was performed 2 months ago at [facility] by Dr. Raoul Gaona and revealed hemorrhoids. Past Med Surg Social Fam HX - Past Medical History Medical history: cancer (basal cell carcinoma, melanoma), coronary artery disease, diabetes, hyperlipidemia, hypertension, myocardial infarction, renal disease Psychiatric history: depression - Past Surgical History Surgical History: cataract, coronary bypass (CABG) (stents x9) - Social History Smoking Status: Never smoker Smokeless Tobacco Status: No Alcohol use: none Drug use: none - Family History Father Living Status: Hx Family Cardiac Disorders: Yes ([place]) Mother Living Status: Hx Family Cancer: Yes (Liver cancer) Internal Medicine - H&P: Meds Calcitriol [Rocaltrol] 0.25 mcg PO DAILY 12/16/16 [History] Furosemide [Lasix] 20 mg PO DAILY PRN 12/16/16 [History] Insulin ASPART [Novolog Flexpen] 0 units SQ TID 12/16/16 [History] Insulin Degludec [Tresiba Flextouch U-100] 80 unit SQ HS 12/16/16 [History] Nafcillin 12 gm IV Q24H #42 vial 12/19/16 [Rx] metroNIDAZOLE [Flagyl] 500 mg PO TID #126 tab 12/19/16 [Rx] Clopidogrel [Plavix] 75 mg PO DAILY 01/02/17 [History] Docusate [Colace] 200 mg PO DAILY 01/02/17 [History] Finasteride [Proscar] 5 mg PO DAILY 01/02/17 [History] Fluticasone Propionate Nasal [Flonase] 100 mcg NS DAILY PRN 01/02/17 [History] Glimepiride [Amaryl] 4 mg PO DAILY 01/02/17 [History] HYDROcodone/Acet 5/325 mg [[place] 5-325 mg] 1 tab PO Q8H PRN 01/02/17 [History] Metoprolol XL (24 HR) Succ [Toprol XL] 25 mg PO DAILY 01/02/17 [History] Nitroglycerin [Nitrostat] 0.4 mg SL Q5M PRN 01/02/17 [History] Omeprazole [PriLOSEC] 40 mg PO DAILY 01/02/17 [History] Rosuvastatin [Crestor] 40 mg PO HS 01/02/17 [History] Saxagliptin HCl [Onglyza] 5 mg PO DAILY 01/02/17 [History] Sertraline [Zoloft] 100 mg PO DAILY 01/02/17 [History] carBAMazepine [Tegretol] 200 mg PO Q12H 01/02/17 [History] 3 Allergy/AdvReac Type Severity Reaction Status Date / Time No Known Allergies Allergy Verified 12/28/16 09:44 All Systems PM: A 10-system review of systems was performed and is negative for pertinent findings except as documented above in the HPI. - Constitutional Constitutional: fatigue, no chills, no fever(s), no weight gain, no weight loss - EENT Eyes: no change in vision Nose, mouth and throat: no nasal congestion, no sinus pressure - Cardiovascular Cardiovascular ROS IM: no chest pain, no palpitations - Respiratory Respiratory: no cough, no dyspnea, no wheezing - Gastrointestinal Gastrointestinal: bloating, melena, no abdominal pain, no diarrhea, no hematemesis, no hematochezia, no nausea, no vomiting - Genitourinary Genitourinary ROS male: no dysuria, no hematuria, no urinary frequency - Musculoskeletal Musculoskeletal ROS IM: no muscle cramps, no numbness - Integumentary Integumentary IM: no erythema, no rash - Neurological Neurological ROS: no dizziness, no headache(s), no weakness - Endocrine Endocrine IM: fatigue, no polydipsia, no polyphagia, no polyuria - Constitutional Vitals: Temp Pulse Resp BP Pulse Ox 98.6 F 81 16 196/99 97 01/02/17 20:21 01/02/17 20:21 01/02/17 20:21 01/02/17 20:21 01/02/17 20:21 General appearance: Present: cooperative, pleasant, no acute distress, obese, answers questions appropriately - Head Head exam: Present: atraumatic, normal inspection, normocephalic - Eye Eye exam: Present: EOMI, PERRL, conjuntiva pink - ENT ENT exam: Present: mucous membranes moist, normal exam, normal oropharynx - Neck Neck exam general surgery: Present: full ROM, normal inspection, supple. Absent : tenderness - Respiratory Respiratory exam: Present: CTAB. Absent: rales, respiratory distress, wheezes - Cardiovascular Cardiovascular exam: Present: RRR, +S1, +S2 - GI/Abdominal GI/Abdominal exam: Present: distended, normal bowel sounds, soft. Absent: diminished bowel sounds, firm, guarding, rebound, tenderness - Extremities Exam Additional comments: Erythema over the dorsal left third toe with minimal serosanguineous drainage saturating the dressing. Ulcer on plantar aspect of the left foot with no erythema, tenderness, or foul odor noted. PICC line noted to the LUE with transparent dressing C/D/I. - Neurological Exam Neurological exam: Present: alert, oriented X3, strengths equal and symetr throughout. Absent: altered - Psychiatric Psychiatric exam: Present: normal affect, normal mood - Skin Additional comments: Erythema over the dorsal left third toe with minimal serosanguineous drainage saturating the dressing. Ulcer on plantar aspect of the left foot with no erythema, tenderness, or foul odor noted. Internal Med - H&P Results - Labs CBC & Chem 7: 01/02/17 15:51 01/02/17 15:51 <Dai Pena - Last Filed: 01/03/17 04:06> Date of Encounter: 01/03/17 Internal Medicine - H&P: HPI History of present illness: Mr. Anguiano is a 72 year old male All Systems PM: A 10-system review of systems was performed and is negative for pertinent findings except as documented above in the HPI. - Constitutional Vitals: Temp Pulse Resp BP Pulse Ox 98.3 F 76 14 157/79 94 01/03/17 03:55 01/03/17 03:55 01/03/17 03:55 01/03/17 03:55 01/03/17 03:55 Internal Med - H&P Results - Labs CBC & Chem 7: 01/02/17 15:51 01/02/17 15:51 - Attending Attestation I have seen and examined the patient independently. I have discussed with resident Dr. Richard regarding management plan. I have reviewed and agree with the documentation. Pt was called in by PCP due to H/H drop. Pt feels fine. However, guiaic test positive. Need to r/o GI bleeding. Will place pt on NPO/IVF/IV PPI. GI consult. Pt has poorly controlled DM and DM ulcer. Will cont his abx regime per ID recommendation on last admission.
[2017-01-02] MEDS ORDERED: Furosemide 20 MG TABLET PO PRN (21:44)
[2017-01-02] MEDS ORDERED: Fluticasone Propionate Nasal 50 MCG/SPRAY BOTTLE NS PRN (21:44)
[2017-01-02] MEDS ORDERED: INSULIN DEGLUDEC 80 UNIT SQ SCH (21:45)
[2017-01-02] MEDS ORDERED: *HR* Dextrose 50 % in Water (Syg) 50 ML SYRINGE IVP PRN (21:52)
[2017-01-02] MEDS ORDERED: Dextrose Gel 15 GM PO PRN ×2 (21:52)
[2017-01-02] MEDS ORDERED: D5% in Water 1,000 ML IVC PRN (21:52)
[2017-01-02] MEDS: carBAMazepine 200 MG TABLET PO SCH (22:13)
[2017-01-02] MEDS: 0.9 % Sodium Chloride 1,000 ML IVC SCH (22:14)
[2017-01-02] MEDS: metroNIDAZOLE 500 MG TABLET PO SCH (22:14)
[2017-01-02] MEDS ORDERED: Insulin LISPRO 300 UNITS/3 ML VIAL SQ SCH (22:15)
[2017-01-03] MEDS: Nafcillin 3,000 MG in D5% in Water 100 ML IVPB SCH ×4 (00:05→19:21)
[2017-01-03] MEDS ORDERED: Insulin DETEMIR 100 UNIT/ML X5UNITS SQ SCH (04:00)
[2017-01-03] MEDS: Insulin LISPRO 300 UNITS/3 ML VIAL SQ SCH ×3 (05:24→18:00)
[2017-01-03 05:56] LABS: Basophils % 0.6 %; Eosinophils # 0.2 K/mcL (0.0-0.6); Eosinophils % 3.7 %; Hematocrit 25.5 % (37.5-50.1); Hemoglobin 8.2 g/dL (12.9-16.9); Immature Granulocytes % 0.3 % (0-4); Lymphocytes # 1.5 K/mcL (0.6-4.6); Lymphocytes % 24.3 %; Mean Corpuscular HGB Conc 32.2 g/dL (31.6-35.5); Mean Corpuscular Hemoglobin 29.9 pg (28.0-33.3); Mean Corpuscular Volume 93.1 fL (83.0-100.0); Mean Platelet Volume 9.2 fL (9.4-12.4); Monocytes # 0.5 K/mcL (0.0-1.3); Monocytes % 8.4 %; Platelet Count 511 K/mcL (140-400); Red Blood Count 2.74 M/mcL (4.19-5.50); Red Cell Distribution Width 14.6 % (11.5-14.5); Segmented Neutrophils % 62.7 %
[2017-01-03] MEDS ORDERED: Pantoprazole 40 MG VIAL IVP SCH (06:00)
[2017-01-03 06:13] LABS: Alanine Aminotransferase 8 Units/L (0-55); Albumin/Globulin Ratio 0.4 (1.1-2.2); Alkaline Phosphatase 51 Units/L (38-126); Aspartate Amino Transferase 10 Units/L (5-34); BUN/Creatinine Ratio 18 (6-26); Blood Urea Nitrogen 30 mg/dL (8-26); Calcium 8.4 mg/dL (8.6-10.8); Carbon Dioxide 27 mEq/L (19-29); Chloride 113 mEq/L (98-109); Globulin 4.6 g/dL (2.4-3.5); Glucose 79 mg/dL (70-99); Osmolality,Calculated 307 (280-300); Potassium 3.9 mEq/L (3.5-4.5); Sodium 146 mEq/L (136-145); Total Protein 6.3 g/dL (6.0-8.3); eGFR For African Americans 50 (> 60); eGFR For Non-African Americans 41 (> 60)
[2017-01-03 06:14] LABS: Albumin 1.7 g/dL (3.5-5.0); Bilirubin,Total < 0.3 mg/dL (0.2-1.2)
[2017-01-03] MEDS ORDERED: Insulin LISPRO 300 UNITS/3 ML VIAL SQ SCH ×3 (07:30→08:00)
[2017-01-03] MEDS: 0.9 % Sodium Chloride 1,000 ML IVC SCH ×2 (08:52→18:16)
[2017-01-03] MEDS ORDERED: *HR* Glimepiride 4 MG TABLET PO SCH (09:00)
[2017-01-03] MEDS ORDERED: ONGLYZA 5 MG PO SCH (09:00)
--- NOTE | 2017-01-03 09:05 | Gastroenterology Consult Note ---
<Mariza Emery - Last Filed: 01/03/17 11:08> Date of Encounter: 01/03/17 Time of Encounter: 10:45 - Assessment and plan (1) Melena Current Visit: Yes Status: Acute Assessment and plan: EGD to r/o esophagitis, gastritis, duodenitis, PUD, AVM, MW tear, varices, tumor or polyp. (2) Anemia Current Visit: Yes Status: Acute Assessment and plan: Acute on chronic, monitor H&H, supplement iron Qualifiers: Anemia type: due to chronic kidney disease Chronic kidney disease stage: stage 3 (moderate) Qualified Code(s): N18.3 - Chronic kidney disease, stage 3 (moderate) - Time Spent With Patient Total time spent is greater than 50% in coordination of care (as documented) at patient's floor/unit and/or counseling patient: less than 15 minutes GI History of Present Illness - Data of Consult Patient: new to practice Consult date: 01/03/17 Requesting Physician: Moses Mayorga DO - Consult Narrative Reason for consult: Melena, anemia History of present illness: Mr. Anguiano is a 72 year old male with PMH of DM, CKD3, HTN, CAD, CABG, CHF and a recent admission for sepsis secondary to infected left plantar diabetic foot ulcer. This patient was advised, based on recent labs, by his PCP to present to ER for evaluation of low hemoglobin yesterday. The patient reports a two week history of dark black loose stools and fatigue. Patient is currently taking ASA and Plavix due to prior cardiac stents x9 and has a PICC line in place for home IV antibiotics. 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 His fecal occult blood test was positive in the ED. Patient denies fever , chills, chest pain, palpitations, shortness of breath, hemoptysis, hematochezia, hematuria, iron supplementation, or previous history of GI bleed. Patient reports history of colon polyps and having three colonoscopies in the past. His most recent colonoscopy was performed 2 months ago at [place] by Dr. Raoul Gaona and revealed hemorrhoids. Colonoscopy: 2017 - [facility] - hemorrhoids Past Med Surg Social Fam HX - Past Medical History Medical history: cancer (basal cell carcinoma, melanoma), coronary artery disease, diabetes, hyperlipidemia, hypertension, myocardial infarction, renal disease Psychiatric history: depression - Past Surgical History Surgical History: cataract, coronary bypass (CABG) (stents x9) - Social History Smoking Status: Never smoker Smokeless Tobacco Status: No Alcohol use: none Drug use: none - Family History Father Living Status: Hx Family Cardiac Disorders: Yes ([place]) Mother Living Status: Hx Family Cancer: Yes (Liver cancer) - Gastrointestinal NSAID use: asa Anticoagulation Use: Plavix Number of BM Per Day: daily Gastrointestinal: Present: abdominal pain, heartburn, melena - Constitutional Constitutional: as per HPI - EENT Eyes: as per HPI Ears: Present: as per HPI Nose, mouth and throat: Present: as per HPI - Cardiovascular Cardiovascular ROS: Present: as per HPI - Respiratory Respiratory IM: Present: as per HPI - Neurological ROS Neurological GI: Present: as per HPI - Hematologic/Lymphatic Hematologic/Lymphatic pediatric: Present: as per HPI - Musculoskeletal Musculoskeletal ROS GI: Present: other Additional Comment: L lower foot chronic wound - Integumentary Integumentary GI: Present: as per HPI - Psychiatric ROS Psychiatric GI: Present: as per HPI - Endocrine Endocrine IM: Present: as per HPI - Constitutional Vitals: Temp Pulse Resp BP Pulse Ox 98.5 F 75 16 144/75 95 01/03/17 07:00 01/03/17 07:00 01/03/17 07:00 01/03/17 07:00 01/03/17 07:00 General appearance: Present: cooperative, A&O X 3, no acute distress, answers questions appropriately - Head Head exam: Present: atraumatic, normocephalic - Eye Eye exam: Present: normal appearance, sclera anicteric - ENT ENT exam: Present: mucous membranes moist - Neck Neck exam general surgery: Present: normal inspection, trachea midline - Respiratory Respiratory exam: Present: CTAB - Cardiovascular Cardiovascular exam: Present: RRR, +S1, +S2 - GI/Abdominal GI/Abdominal exam: Present: normal bowel sounds, soft, no peritoneal signs - Rectal Rectal exam: Present: deferred - Extremities Exam Extremities exam: Present: warm Additional comments: L lower extremity bandaged. - Neurological Exam Neurological exam: Present: no focal deficits - Psychiatric Psychiatric exam: Present: normal affect, normal mood - Skin Skin exam: Present: dry, intact, normal color, warm Results - Labs CBC & Chem 7: 01/03/17 05:34 01/03/17 05:34 Labs: Last Result Calcium 8.4 mg/dL (8.6-10.8) L 01/03/17 05:34 Troponin I 0.01 ng/mL (0-0.03) 01/02/17 15:51 Stool Occult Blood Positive (Negative) A 01/02/17 16:30 Entire Visit Hgb 8.2 g/dL (12.9-16.9) L 01/03/17 05:34 Hct 25.5 % (37.5-50.1) L 01/03/17 05:34 PT 12.1 Seconds (9.4-12.1) 01/02/17 15:51 Total Bilirubin < 0.3 mg/dL (0.2-1.2) 01/03/17 05:34 AST 10 Units/L (5-34) 01/03/17 05:34 ALT 8 Units/L (0-55) 01/03/17 05:34 Lipase 35 Units/L (8-78) 01/02/17 15:51 - ABG ABG results: PT/INR, D-dimer PT 12.1 Seconds (9.4-12.1) 01/02/17 15:51 Consult Discharge Plan - Plan Referrals: Raoul Gaona DO [Primary Care Provider] - <Andrei Cadena - Last Filed: 01/03/17 18:34> Date of Encounter: 01/03/17 Time of Encounter: 13:00 - Time Spent With Patient Total time spent is greater than 50% in coordination of care (as documented) at patient's floor/unit and/or counseling patient: GI History of Present Illness - Data of Consult Requesting Physician: Moses Mayorga DO - Consult Narrative History of present illness: Mr. Anguiano is a 72 year old male - Constitutional Vitals: Temp Pulse Resp BP Pulse Ox 98.3 F 69 14 166/71 95 01/03/17 18:22 01/03/17 18:22 01/03/17 18:22 01/03/17 18:22 01/03/17 18:22 Results - Labs CBC & Chem 7: 01/03/17 05:34 01/03/17 05:34 Labs: Last Result Calcium 8.4 mg/dL (8.6-10.8) L 01/03/17 05:34 Troponin I 0.01 ng/mL (0-0.03) 01/02/17 15:51 Stool Occult Blood Positive (Negative) A 01/02/17 16:30 Entire Visit Hgb 8.2 g/dL (12.9-16.9) L 01/03/17 05:34 Hct 25.5 % (37.5-50.1) L 01/03/17 05:34 PT 12.1 Seconds (9.4-12.1) 01/02/17 15:51 Total Bilirubin < 0.3 mg/dL (0.2-1.2) 01/03/17 05:34 AST 10 Units/L (5-34) 01/03/17 05:34 ALT 8 Units/L (0-55) 01/03/17 05:34 Lipase 35 Units/L (8-78) 01/02/17 15:51 - ABG ABG results: PT/INR, D-dimer PT 12.1 Seconds (9.4-12.1) 01/02/17 15:51 - Attending Attestation I examined this patient and my medical decision-making was reviewed with the Resident Physician. I agree with the documented findings, disposition and treatment plan as described except to the extent set forth below.
[2017-01-03] MEDS ORDERED: Simethicone 40 MG/0.6 ML MLS IR ONE (09:22)
[2017-01-03] MEDS ORDERED: Tetracaine/Benzocaine/Butamben 200MG/SPRAY (100SPY/BOT) MM ONE (09:22)
--- NOTE | 2017-01-03 09:43 | Anesthesia Evaluation PreOp ---
Date of Encounter: 01/03/17 Time of Encounter: 09:20 - Past History Planned Operation: EGD Cardiac History: IN, HTN, Cardiac Surgery, Cardiac Stent (s/p CABG, multiple cardiac stents, recent cardiac eval. 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[employer] History: TIA (one single episode, no deficits) Other Medical History: Renal (stage 3 renal insufficiency), Diabetes Type II Anesthesia History: No Prior Anesthetic Complications, Past Anesthesia Alcohol Use: none Drug use: none Medications and Allergies Calcitriol [Rocaltrol] 0.25 mcg PO DAILY 12/16/16 [History] Furosemide [Lasix] 20 mg PO DAILY PRN 12/16/16 [History] Insulin ASPART [Novolog Flexpen] 0 units SQ TID 12/16/16 [History] Insulin Degludec [Tresiba Flextouch U-100] 80 unit SQ HS 12/16/16 [History] Nafcillin 12 gm IV Q24H #42 vial 12/19/16 [Rx] metroNIDAZOLE [Flagyl] 500 mg PO TID #126 tab 12/19/16 [Rx] Clopidogrel [Plavix] 75 mg PO DAILY 01/02/17 [History] Docusate [Colace] 200 mg PO DAILY 01/02/17 [History] Finasteride [Proscar] 5 mg PO DAILY 01/02/17 [History] Fluticasone Propionate Nasal [Flonase] 100 mcg NS DAILY PRN 01/02/17 [History] Glimepiride [Amaryl] 4 mg PO DAILY 01/02/17 [History] HYDROcodone/Acet 5/325 mg [[place] 5-325 mg] 1 tab PO Q8H PRN 01/02/17 [History] Metoprolol XL (24 HR) Succ [Toprol XL] 25 mg PO DAILY 01/02/17 [History] Nitroglycerin [Nitrostat] 0.4 mg SL Q5M PRN 01/02/17 [History] Omeprazole [PriLOSEC] 40 mg PO DAILY 01/02/17 [History] Rosuvastatin [Crestor] 40 mg PO HS 01/02/17 [History] Saxagliptin HCl [Onglyza] 5 mg PO DAILY 01/02/17 [History] Sertraline [Zoloft] 100 mg PO DAILY 01/02/17 [History] carBAMazepine [Tegretol] 200 mg PO Q12H 01/02/17 [History] 3 Allergy/AdvReac Type Severity Reaction Status Date / Time No Known Allergies Allergy Verified 12/28/16 09:44 - Meds/Allergy Pre-op Review Medications Reviewed: Yes Allergies Reviewed: Yes Beta Blockers on Current Med List: Yes (Lopressor at 0945) Anesthesia Results - Labs 01/03/17 05:34 01/03/17 05:34 - Imaging EKG: report reviewed, image reviewed (sinus rhythm, 1st degree AV block) Anesthesia Exam Selected Entries 01/03/17 09:19 Temperature 98.5 F Pulse Rate 68 Respiratory Rate 18 Blood Pressure 163/85 O2 Sat by Pulse Oximetry 97 Weight: 95 kg NPO (# of Hours): over 8 hours - HEENT Pupil (Motor): Pupils equal Mallampati: II Teeth: Normal Oral Opening: Greater than 3 - Cardiac Rhythm: Regular Murmur: None - Pulmonary Breath Sounds: bilateral Clear Respiratory Effort: Symmetrical Anesthesia Assess/Plan ASA Score: 3 Modified [place] Scale for Level of Consciousness: Cooperative, oriented, and tranquil Anesthetic Plan: MAC Monitoring Plan: Standard Monitors Recovery Plan: Other
[2017-01-03] MEDS ORDERED: *HR* Metoprolol 5 MG/5 ML VIAL IVP ONE ×2 (09:48→09:49)
--- NOTE | 2017-01-03 11:30 | Podiatry Consult Note ---
Date of Encounter: 01/03/17 Time of Encounter: 11:27 Assessment and Plan (1) Diabetic ulcer of left foot Current visit: No Status: Acute Currently the patient has a diabetic foot ulcer to the left foot plantar aspect with purulence tracking along the dorsal aspect of the foot and an incision from a previous incision and drainage in our clinic with Dr. Mandel. The third digit also appears to be somewhat ischemic secondary to infection and likely nonviable. The patient was instructed that a third digit amputation with possible third metatarsal head resection with incision and drainage would be beneficial. Patient related that he was planning on having surgery and he is okay with proceeding with surgical intervention.Patient was informed of the risks and complications of surgery. These may include but are not limited to the following; nerve damage, numbness, tingling, RSD/CRPS, loss of motor function, loss of toe, loss of limb, loss of life, ischemia, wound healing issues, infection, scarring, keloid formation, continued pain, arthritis, non- union, mal-union, prominent hardware, displaced hardware, reaction to hardware, the need to remove hardware, bruising, continued limp, the need for future surgery, over correction, under correction, chronic swelling, the need for physical therapy, stiffness of joints, ulceration, slow healing, wound dehiscence, reaction to implant, reaction to sutures. The patient was informed of the possible conservative treatments available which may include but are not limited to the following: Orthotics, bracing, non -weight bearing, physical therapy, padding, taping, steroid injections, NSAIDS, casting. The patient was given the option to seek a second opinion. It was explained that surgery is an art and not an exact science therefore results cannot be guaranteed. All the patients questions and concerns were addressed. Patient agrees to have the surgery despite the possible risks and complications. Absolutely no guarantees were given or implied. Qualifiers: Diabetic foot ulcer location: midfoot Diabetes mellitus type: type 2 Non- pressure ulcer stage: unspecified non-pressure ulcer stage Qualified Code(s): E11.621 - Type 2 diabetes mellitus with foot ulcer; L97.429 - Non-pressure chronic ulcer of left heel and midfoot with unspecified severity History of Present Illness Chief complaint: Ulceration left foot with infection HPI: Mr. Anguiano is a 72 year old male who has been treated for an ulceration on his foot, left. Patient relates that recently he began to look more infected. Patient followed up with Dr. Mandel in our clinic yesterday and had a bedside I& D. Due to the severity of the infection the patient states that Dr. Mandel recommended a third digit amputation yesterday. The patient relates that he is willing to proceed with this to get his foot healed. Past Med Surg Social Fam HX - Past Medical History Medical history: cancer (basal cell carcinoma, melanoma), coronary artery disease, diabetes, hyperlipidemia, hypertension, myocardial infarction, renal disease Psychiatric history: depression - Past Surgical History Surgical History: cataract, coronary bypass (CABG) (stents x9) - Social History Smoking Status: Never smoker Smokeless Tobacco Status: No Alcohol use: none Drug use: none - Family History Father Living Status: Hx Family Cardiac Disorders: Yes ([place]) Mother Living Status: Hx Family Cancer: Yes (Liver cancer) Medications and Allergies Calcitriol [Rocaltrol] 0.25 mcg PO DAILY 12/16/16 [History] Furosemide [Lasix] 20 mg PO DAILY PRN 12/16/16 [History] Insulin ASPART [Novolog Flexpen] 0 units SQ TID 12/16/16 [History] Insulin Degludec [Tresiba Flextouch U-100] 80 unit SQ HS 12/16/16 [History] Nafcillin 12 gm IV Q24H #42 vial 12/19/16 [Rx] metroNIDAZOLE [Flagyl] 500 mg PO TID #126 tab 12/19/16 [Rx] Clopidogrel [Plavix] 75 mg PO DAILY 01/02/17 [History] Docusate [Colace] 200 mg PO DAILY 01/02/17 [History] Finasteride [Proscar] 5 mg PO DAILY 01/02/17 [History] Fluticasone Propionate Nasal [Flonase] 100 mcg NS DAILY PRN 01/02/17 [History] Glimepiride [Amaryl] 4 mg PO DAILY 01/02/17 [History] HYDROcodone/Acet 5/325 mg [[place] 5-325 mg] 1 tab PO Q8H PRN 01/02/17 [History] Metoprolol XL (24 HR) Succ [Toprol XL] 25 mg PO DAILY 01/02/17 [History] Nitroglycerin [Nitrostat] 0.4 mg SL Q5M PRN 01/02/17 [History] Omeprazole [PriLOSEC] 40 mg PO DAILY 01/02/17 [History] Rosuvastatin [Crestor] 40 mg PO HS 01/02/17 [History] Saxagliptin HCl [Onglyza] 5 mg PO DAILY 01/02/17 [History] Sertraline [Zoloft] 100 mg PO DAILY 01/02/17 [History] carBAMazepine [Tegretol] 200 mg PO Q12H 01/02/17 [History] 3 Allergy/AdvReac Type Severity Reaction Status Date / Time No Known Allergies Allergy Verified 12/28/16 09:44 All Systems Reviewed: A 10-system review of systems was performed and is negative for pertinent findings except as documented above in the HPI. Physical Exam - Constitutional Vitals: Temp Pulse Resp BP Pulse Ox 98.0 F 68 16 164/78 98 01/03/17 11:21 01/03/17 11:21 01/03/17 11:21 01/03/17 11:21 01/03/17 11:21 Exam: Large ulceration on the dorsum of the left foot consistent with the previous incision and drainage, ulceration on the plantar aspect of the left foot that communicates with the dorsal aspect of the foot, purulence, infection, erythema noted. Pedal pulses palpable. Capillary fill time intact to digits 1 through 5 bilaterally with the exception of the third digit which appears to be ischemic secondary to necrosis from infection. Results - Labs Result Diagrams: 01/03/17 05:34 01/03/17 05:34 Labs: Abnormal lab results RBC 2.74 M/mcL (4.19-5.50) L 01/03/17 05:34 Hgb 8.2 g/dL (12.9-16.9) L 01/03/17 05:34 Hct 25.5 % (37.5-50.1) L 01/03/17 05:34 RDW 14.6 % (11.5-14.5) H 01/03/17 05:34 Plt Count 511 K/mcL (140-400) H 01/03/17 05:34 MPV 9.2 fL (9.4-12.4) L 01/03/17 05:34 Immature Plt Fraction 1.0 % (1.1-6.1) L 01/02/17 15:51 Sodium 146 mEq/L (136-145) H 01/03/17 05:34 Chloride 113 mEq/L (98-109) H 01/03/17 05:34 BUN 30 mg/dL (8-26) H 01/03/17 05:34 Creatinine 1.67 mg/dL (0.72-1.25) H 01/03/17 05:34 Est GFR ( Amer) 50 (> 60) L 01/03/17 05:34 Est GFR (Non-Af Amer) 41 (> 60) L 01/03/17 05:34 POC Glucose 94 (58-89) H 01/03/17 11:21 Calculated Osmolality 307 (280-300) H 01/03/17 05:34 Calcium 8.4 mg/dL (8.6-10.8) L 01/03/17 05:34 Albumin 1.7 g/dL (3.5-5.0) L 01/03/17 05:34 Globulin 4.6 g/dL (2.4-3.5) H 01/03/17 05:34 Albumin/Globulin Ratio 0.4 (1.1-2.2) L 01/03/17 05:34 Stool Occult Blood Positive (Negative) A 01/02/17 16:30 H & H 01/03/17 Range/Units 05:34 Hgb 8.2 L (12.9-16.9) g/dL Hct 25.5 L (37.5-50.1) % All other labs normal. Consult Discharge Plan - Plan Referrals: Raoul Gaona DO [Primary Care Provider] -
[2017-01-03] MEDS: Metoprolol XL (24 HR) Succ 25 MG TAB.ER.24H PO SCH (12:00)
[2017-01-03] MEDS: metroNIDAZOLE 500 MG TABLET PO SCH ×3 (12:00→21:24)
[2017-01-03] MEDS: Finasteride 5 MG TABLET PO SCH (12:00)
[2017-01-03] MEDS: carBAMazepine 200 MG TABLET PO SCH ×2 (12:01→21:40)
[2017-01-03] MEDS: Pantoprazole 40 MG in 0.9 % Sodium Chloride Mini Bag 100 ML IVC SCH ×3 (12:08→22:51)
[2017-01-03] MEDS ORDERED: *HR* Propofol 200 MG/20 ML VIAL IVP ONE (12:21)
[2017-01-03] MEDS ORDERED: Lidocaine -MPF 2% 5 ML VIAL INFILT ONE (12:21)
--- NOTE | 2017-01-03 13:25 | Internal Med Progress Note ---
<RashardBebeto fragoso - Last Filed: 01/03/17 13:26> Date of Encounter: 01/03/17 Time of Encounter: 13:22 - Assessment and plan (1) Peptic ulcer disease with hemorrhage Current Visit: Yes Status: Acute Assessment and plan: Asymptomatic. Patient was found to have a drop in Hgb on outpatient labs. Reports black stools for 1 week. Patient underwent upper endoscopy today which found a non bleeding ulcer. Plan for PPI infusion for 24h then transition to BID PPI. Apprectiate GI recommendations. (2) Diabetic ulcer of left foot Current Visit: No Status: Acute Assessment and plan: Being followed as an outpatient by Dr. cronin and is on IV abx as an outpatient. Seen by podiatry and plan for debridement with possible amputation this afternoon. Continue abx Qualifiers: Diabetic foot ulcer location: midfoot Diabetes mellitus type: type 2 Non- pressure ulcer stage: unspecified non-pressure ulcer stage Qualified Code(s): E11.621 - Type 2 diabetes mellitus with foot ulcer; L97.429 - Non-pressure chronic ulcer of left heel and midfoot with unspecified severity (3) Anemia Current Visit: Yes Status: Acute Assessment and plan: Secondary to PUD as discussed above. Asymptomatic. No indication for transfusion. No active bleeding found. Recheck H&H in AM Qualifiers: Anemia type: other cause Other causes of anemia: acute posthemorrhagic Qualified Code(s): D62 - Acute posthemorrhagic anemia (4) Acute on chronic renal failure Current Visit: No Status: Resolved Assessment and plan: Patient appears to have baseline stage 3 CKD, Cr elevated on presentation. Likely related to acute bleed as discussed above. Cr has returned to baseline. Good UOP. Continue to monitor Qualifiers: Acute renal failure type: unspecified Chronic kidney disease stage: stage 3 (moderate) Qualified Code(s): N17.9 - Acute kidney failure, unspecified; N18.3 - Chronic kidney disease, stage 3 (moderate) - Subjective Interval history: Patient seen and examined at bedside. Patient states he feels pretty good at this time. He has no complaints. He reports he has had black stools for about a week. He denies blood in the stool. He denies dizziness, chest pain, dyspnea, fever, chills. - Constitutional Vitals: Temp Pulse Resp BP Pulse Ox 97.8 F 68 16 145/65 95 01/03/17 13:17 01/03/17 13:17 01/03/17 13:17 01/03/17 13:17 01/03/17 13:17 General appearance: Present: cooperative, A&O X 3, pleasant, no acute distress, obese, answers questions appropriately - Respiratory Respiratory exam: Present: CTAB. Absent: rales, rhonchi, wheezes - Cardiovascular Cardiovascular exam: Present: RRR. Absent: gallop, rubs, systolic murmur - GI/Abdominal GI/Abdominal exam: Present: normal bowel sounds, soft. Absent: distended, tenderness - Extremities Exam Extremities exam: Present: warm. Absent: pedal edema, tenderness Additional comments: Dressing applied to distal L foot. Dressing c/d/i - Neurological Exam Neurological exam: Present: alert, CN II-XII intact, oriented X3, no focal deficits Internal Medicine: Result - Labs CBC & Chem 7: 01/03/17 05:34 01/03/17 05:34 Labs: Short CBC 01/03/17 Range/Units 05:34 WBC 6.3 (4.3-11.1) K/mcL Hgb 8.2 L (12.9-16.9) g/dL Hct 25.5 L (37.5-50.1) % Plt Count 511 H (140-400) K/mcL Neutrophils # 4.0 (1.6-8.9) K/mcL BMP 01/03/17 05:34 Sodium 146 H Potassium 3.9 D Chloride 113 H Carbon Dioxide 27 BUN 30 H Creatinine 1.67 H Glucose 79 Calcium 8.4 L Liver Function 01/03/17 Range/Units 05:34 Total Bilirubin < 0.3 (0.2-1.2) mg/dL AST 10 (5-34) Units/L ALT 8 (0-55) Units/L Alkaline Phosphatase 51 (38-126) Units/L Albumin 1.7 L (3.5-5.0) g/dL - ABG Interpretation ABG results: PT/INR, D-dimer PT 12.1 Seconds (9.4-12.1) 01/02/17 15:51 - VTE Reasons for not Prescribing Prophylaxis: Medical contraindication Consult Discharge Plan - Plan Referrals: Raoul Gaona DO [Primary Care Provider] - <Moses Mayorga - Last Filed: 01/03/17 18:49> Date of Encounter: 01/03/17 - Assessment and plan (1) Peptic ulcer disease with hemorrhage Current Visit: Yes Status: Acute (2) Anemia Current Visit: Yes Status: Acute Qualifiers: Anemia type: other cause Other causes of anemia: acute posthemorrhagic Qualified Code(s): D62 - Acute posthemorrhagic anemia (3) Diabetes mellitus Current Visit: No Status: Chronic Qualifiers: Diabetes mellitus type: type 2 Diabetes mellitus complication status: with neurologic complications Diabetes mellitus complication detail: with polyneuropathy Diabetes mellitus alf insulin use: with alf use Qualified Code(s): E11.42 - Type 2 diabetes mellitus with diabetic polyneuropathy; 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 (4) Diabetic ulcer of left foot Current Visit: No Status: Acute Qualifiers: Diabetic foot ulcer location: midfoot Diabetes mellitus type: type 2 Non- pressure ulcer stage: unspecified non-pressure ulcer stage Qualified Code(s): E11.621 - Type 2 diabetes mellitus with foot ulcer; L97.429 - Non-pressure chronic ulcer of left heel and midfoot with unspecified severity - Constitutional Vitals: Temp Pulse Resp BP Pulse Ox 98.3 F 69 14 166/71 95 01/03/17 18:22 01/03/17 18:22 01/03/17 18:22 01/03/17 18:22 01/03/17 18:22 Internal Medicine: Result - Labs CBC & Chem 7: 01/03/17 05:34 01/03/17 05:34 Labs: Short CBC 01/03/17 Range/Units 05:34 WBC 6.3 (4.3-11.1) K/mcL Hgb 8.2 L (12.9-16.9) g/dL Hct 25.5 L (37.5-50.1) % Plt Count 511 H (140-400) K/mcL Neutrophils # 4.0 (1.6-8.9) K/mcL BMP 01/03/17 05:34 Sodium 146 H Potassium 3.9 D Chloride 113 H Carbon Dioxide 27 BUN 30 H Creatinine 1.67 H Glucose 79 Calcium 8.4 L Liver Function 01/03/17 Range/Units 05:34 Total Bilirubin < 0.3 (0.2-1.2) mg/dL AST 10 (5-34) Units/L ALT 8 (0-55) Units/L Alkaline Phosphatase 51 (38-126) Units/L Albumin 1.7 L (3.5-5.0) g/dL - ABG Interpretation ABG results: PT/INR, D-dimer PT 12.1 Seconds (9.4-12.1) 01/02/17 15:51 - Attending Attestation I examined this patient and my medical decision-making was reviewed with the Resident Physician on 01/03/17. I agree with the documented findings, disposition and treatment plan as described except to the extent set forth below. Mr Anguiano is currently admitted for acute GI bleed and osteomyelitis of toe. He is moderate to high risk due to potential for worsening infection and bleeding. Mr Anguiano is doing OK. Had EGD today and on PPI drip. To have toe amputation today. No CP or SOB. Exam Alert. Comfortable Mucus membranes dry Heart reg No wheeze Dressing intact I/P 1. GI bleed 2. Anemia 3. Diabetic foot ulcer with osteo Further diagnoses and plan as above.
[2017-01-03] MEDS: *HR* HYDROcodone/Acet 5/325 mg TABLET PO PRN (15:34)
[2017-01-03] MEDS ORDERED: Lidocaine -MPF 2% 2 ML VIAL ONE (15:44)
[2017-01-03] MEDS ORDERED: Propofol 500 MG/50 ML INFUS..BTL ONE (15:44)
--- NOTE | 2017-01-03 15:47 | Anesthesia Evaluation PreOp ---
Date of Encounter: 01/03/17 Time of Encounter: 16:03 - Past History Planned Operation: I & D Left Foot, Amputation 3rd Toe Cardiac History: [place], HTN, Hyperlipidemia, Cardiac Surgery (CABG x 4), Cardiac Stent (stents x 9) Pulmonary History: ALIDA Dx (non-compliant) FOOD COUNSELOR History: TIA Other Medical History: Renal (syage 3 CKD), Diabetes Type II, Other (depression) Anesthesia History: No Prior Anesthetic Complications, Past Anesthesia Alcohol Use: none Drug use: none Medications and Allergies Calcitriol [Rocaltrol] 0.25 mcg PO DAILY 12/16/16 [History] Furosemide [Lasix] 20 mg PO DAILY PRN 12/16/16 [History] Insulin ASPART [Novolog Flexpen] 0 units SQ TID 12/16/16 [History] Insulin Degludec [Tresiba Flextouch U-100] 80 unit SQ HS 12/16/16 [History] Nafcillin 12 gm IV Q24H #42 vial 12/19/16 [Rx] metroNIDAZOLE [Flagyl] 500 mg PO TID #126 tab 12/19/16 [Rx] Clopidogrel [Plavix] 75 mg PO DAILY 01/02/17 [History] Docusate [Colace] 200 mg PO DAILY 01/02/17 [History] Finasteride [Proscar] 5 mg PO DAILY 01/02/17 [History] Fluticasone Propionate Nasal [Flonase] 100 mcg NS DAILY PRN 01/02/17 [History] Glimepiride [Amaryl] 4 mg PO DAILY 01/02/17 [History] HYDROcodone/Acet 5/325 mg [[place] 5-325 mg] 1 tab PO Q8H PRN 01/02/17 [History] Metoprolol XL (24 HR) Succ [Toprol XL] 25 mg PO DAILY 01/02/17 [History] Nitroglycerin [Nitrostat] 0.4 mg SL Q5M PRN 01/02/17 [History] Omeprazole [PriLOSEC] 40 mg PO DAILY 01/02/17 [History] Rosuvastatin [Crestor] 40 mg PO HS 01/02/17 [History] Saxagliptin HCl [Onglyza] 5 mg PO DAILY 01/02/17 [History] Sertraline [Zoloft] 100 mg PO DAILY 01/02/17 [History] carBAMazepine [Tegretol] 200 mg PO Q12H 01/02/17 [History] 3 Allergy/AdvReac Type Severity Reaction Status Date / Time No Known Allergies Allergy Verified 12/28/16 09:44 - Meds/Allergy Pre-op Review Medications Reviewed: Yes Allergies Reviewed: Yes Beta Blockers on Current Med List: Yes If Beta Blockers taken, Date/Time (Last Dose taken): 01/03/2017 at 0945 Anesthesia Results - Labs 01/03/17 05:34 01/03/17 05:34 - Imaging EKG: report reviewed (12/24/2014 SINUS RHYTHM WITH FIRST DEGREE AV BLOCK INFERIOR MYOCARDIAL INFARCTION, PROBABLY OLD) Additional studies: 11/15/2014 Echo Impressions: Mild LV systolic dysfunction, LVEF 45-50%. There is hypokinesis of the basal inferior and basal inferolateral schroeder. Mild concentric left ventricular hypertrophy. Moderate left ventricular diastolic dysfunction. Normal right ventricular structure and function. Moderately dilated left atrium. Mildly dilated right atrium. Mild mitral regurgitation. Mild pulmonary hypertension. Estimated RVSP = 42 mmHg. 11/14/2010 Stress CONCLUSIONS: ==> The ECG during the exam was negative for ischemia. ==> Moderate inferior wall fixed defect most consistent with previous infarct. ==> Mild inferior lateral wall fixed defect most consistent with artifact. ==> The left ventricle does not appear dilated. ==> Segmental ventricular function reveals Inferior wall hypokinesis. ==> The gated ejection fraction was calculated at 69%. ==> Clinical correlation suggested. Anesthesia Exam Vital Signs/O2 Sat/Glucose, Most Recent Temp Pulse Resp BP Pulse Ox 98.1 F 72 17 174/81 97 01/03/17 14:57 01/03/17 14:57 01/03/17 14:57 01/03/17 14:57 01/03/17 14:57 Blood Glucose* 94 Height: 5'8''/1.73 m Weight: 208 lbs/94.574 kg NPO (# of Hours): 8 Pain Scale: 0 Pain Scale Used: Numeric (1 - 10) - HEENT Pupil (Motor): EOMI Mallampati: II Teeth: Normal Oral Opening: Greater than 3 - FOOD COUNSELOR LOC: Oriented FOOD COUNSELOR Motor: Normal RUE, Normal LUE, Normal RLE, Normal LLE, Normal Face FOOD COUNSELOR Sensory: Normal: RUE, LUE, RLE, LLE, Face - Cardiac Rhythm: Regular Murmur: None - Pulmonary Breath Sounds: bilateral Clear Respiratory Effort: Symmetrical Anesthesia Assess/Plan ASA Score: 3 Modified Vitor Scale for Level of Consciousness: Cooperative, oriented, and tranquil Anesthetic Plan: MAC Monitoring Plan: Standard Monitors
--- NOTE | 2017-01-03 16:36 | Electrocardiograph Report ---
[address] [place], [place] [address] Test Date: 2017-01-02 Pat Name: Alexander Anguiano Department: [id number] Room: 3B Gender: M Meal Room Hand: AM : 1945 Requested By: Rylan Cuenca Order Number: [id number] Reading MD: Kendal Foley Measurements Intervals [place] Rate: 91 P: 60 AL: 210 QRS: 28 QRSD: 108 T: -16 QT: 358 QTc: 407 Interpretive Statements SINUS RHYTHM WITH FIRST DEGREE AV BLOCK POSSIBLE INFERIOR MYOCARDIAL INFARCTION, OF INDETERMINATE AGE Electronically Signed On 01-03-2017 16:34:20 EDT by Kendal Foley
--- NOTE | 2017-01-03 17:53 | Anesthesia Evaluation Post Op ---
Date of Encounter: 01/03/17 Time of Encounter: 17:51 - Vital Signs Vital Signs: 3 Vital Signs BP 161/78 Pulse 74 Resp 16 O2 Sat 97% - Lungs Lungs: Clear Ascult./Percussion - Airway Airway: Non-obstructed - Cardiovascular Regular Rate - Mental Status Mental Status: Alert & Oriented, Answers Appropriately - Pain Pain Scale: 0 Pain Scale used: Numeric (1 - 10) - Nausea Vomiting Nausea Vomiting: Not Present - Hydration Hydration: NPO, Has not voided - Discharge PostOp Status: Transfer Patient to floor
[2017-01-04] MEDS: Insulin LISPRO 300 UNITS/3 ML VIAL SQ SCH ×3 (00:12→11:40)
[2017-01-04] MEDS: Nafcillin 3,000 MG in D5% in Water 100 ML IVPB SCH ×2 (01:20→08:48)
[2017-01-04] MEDS: Pantoprazole 40 MG in 0.9 % Sodium Chloride Mini Bag 100 ML IVC SCH ×2 (03:47→08:59)
[2017-01-04] MEDS: *HR* HYDROcodone/Acet 5/325 mg TABLET PO PRN (04:41)
[2017-01-04 04:59] LABS: Basophils % 0.7 %; Eosinophils # 0.2 K/mcL (0.0-0.6); Eosinophils % 2.9 %; Hemoglobin 7.6 g/dL (12.9-16.9); Immature Granulocytes % 0.7 % (0-4); Immature Platelets 1.1 % (1.1-6.1); Lymphocytes # 1.3 K/mcL (0.6-4.6); Lymphocytes % 21.8 %; Mean Corpuscular HGB Conc 30.4 g/dL (31.6-35.5); Mean Corpuscular Hemoglobin 28.8 pg (28.0-33.3); Mean Corpuscular Volume 94.7 fL (83.0-100.0); Mean Platelet Volume 9.3 fL (9.4-12.4); Monocytes # 0.4 K/mcL (0.0-1.3); Monocytes % 6.3 %; Platelet Count 542 K/mcL (140-400); Red Blood Count 2.64 M/mcL (4.19-5.50); Red Cell Distribution Width 14.8 % (11.5-14.5); Segmented Neutrophils % 67.6 %
[2017-01-04 05:34] LABS: Alanine Aminotransferase 9 Units/L (0-55); Albumin/Globulin Ratio 0.4 (1.1-2.2); Alkaline Phosphatase 52 Units/L (38-126); Aspartate Amino Transferase 10 Units/L (5-34); BUN/Creatinine Ratio 14 (6-26); Blood Urea Nitrogen 25 mg/dL (8-26); Calcium 8.3 mg/dL (8.6-10.8); Carbon Dioxide 24 mEq/L (19-29); Chloride 110 mEq/L (98-109); Globulin 4.6 g/dL (2.4-3.5); Glucose 261 mg/dL (70-99); Osmolality,Calculated 307 (280-300); Potassium 4.4 mEq/L (3.5-4.5); Sodium 142 mEq/L (136-145); Total Protein 6.4 g/dL (6.0-8.3); eGFR For African Americans 47 (> 60); eGFR For Non-African Americans 38 (> 60)
[2017-01-04 05:43] LABS: Albumin 1.8 g/dL (3.5-5.0); Bilirubin,Total < 0.3 mg/dL (0.2-1.2)
[2017-01-04] MEDS ORDERED: Nafcillin 3,000 MG in D5% in Water 100 ML IVPB SCH (07:30)
[2017-01-04] MEDS: carBAMazepine 200 MG TABLET PO SCH (08:59)
[2017-01-04] MEDS: Finasteride 5 MG TABLET PO SCH (09:00)
[2017-01-04] MEDS: Metoprolol XL (24 HR) Succ 25 MG TAB.ER.24H PO SCH (09:02)
[2017-01-04] MEDS: metroNIDAZOLE 500 MG TABLET PO SCH (09:03)
--- NOTE | 2017-01-04 10:06 | Operative Note ---
Date of procedure: 01/03/17 Pre-op diagnosis: Left foot infection Post-op diagnosis: same Procedure: Incision and drainage plantar aspect of left foot. Incision and drainage dorsal aspect of left foot. Incision and drainage of left third digit. Implants: None Anesthesia: CLARA Surgeon: Guanakito Brandon Estimated blood loss (cc): 30 Specimen: Cultures of the wound, left foot Condition: stable Disposition: floor Procedure in Detail: The patient was administered IV antibiotics. The patient was transported to the operative room and placed on operating table. Following anesthesia the extremity was scrubbed prepped and draped in the usual aseptic fashion. A timeout was performed. The lower extremity was raised to 60 degrees for hemostasis and exsanguinated utilizing an Esmarch bandage. The pneumatic tourniquet was inflated. The leg was lowered to the table. An incision was made and deepened through subcutaneous tissue with care taken to identify and retract all vital neurovascular structures. The incision was made on the plantar aspect of the foot near the plantar ulceration which measured approximately 1 cm in diameter and over 1 cm deep and was located sub- third metatarsal head. There was noted to be some necrotic tissue secondary to infection which was sharply debrided with a 15 blade scalpel. The tissue debrided consisted of epidermis, dermis, subcutaneous, fascia. After probing deeper into the plantar wound it was noted to track to the dorsal surface of the foot. A separate incision was made on the dorsal aspect of the left foot at the second interspace. There was noted to be purulence which was drained and cultured. There was noted to be some necrotic tissue secondary to infection which was sharply debrided with a 15 blade scalpel. The tissue debrided consisted of epidermis, dermis, subcutaneous, fascia. The third digit ulceration was also inspected and then incision was made along the third digit ulceration, there was noted to be purulence in the third digit as well.There was noted to be some necrotic tissue secondary to infection which was sharply debrided with a 15 blade scalpel. The tissue debrided consisted of epidermis, dermis, subcutaneous, fascia. After probing further the third digit incision line was connected with the incision line along the dorsal aspect of the foot creating 1 large open site. Due to the infection the decision was made to avoid closure at this point. A wound VAC was applied after adequate irrigation with 3 L of irrigation. The incision site was irrigated with copious amounts of normal saline and closed in a layered fashion. A dry sterile dressing was applied. The pneumatic tourniquet was deflated and a hyperemic response was noted to all digits. The patient tolerated the procedure and anesthesia well and was transported to the recovery room with vital signs stable and vascular status intact to both feet. The patient will be readmitted to the floor per anesthesia. The patient will keep the dressings clean, dry, intact until the follow-up appointment in 1- 2 weeks. The patient will remain nonweightbearing.
[2017-01-04] MEDS ORDERED: 0.9 % Sodium Chloride 250 ML IVC SCH (10:15)
--- NOTE | 2017-01-04 10:40 | Discharge Summary ---
<Bebeto Serrato - Last Filed: 01/04/17 13:45> Date of Encounter: 01/04/17 Time of Encounter: 10:38 - Discharge Diagnosis (1) Peptic ulcer disease with hemorrhage Priority: Primary Status: Resolved (2) Diabetic ulcer of left foot Priority: Primary Status: Acute Qualifiers: Diabetic foot ulcer location: midfoot Diabetes mellitus type: type 2 Non- pressure ulcer stage: unspecified non-pressure ulcer stage Qualified Code(s): E11.621 - Type 2 diabetes mellitus with foot ulcer; L97.429 - Non-pressure chronic ulcer of left heel and midfoot with unspecified severity (3) Anemia Priority: Primary Status: Acute Qualifiers: Anemia type: other cause Other causes of anemia: acute posthemorrhagic Qualified Code(s): D62 - Acute posthemorrhagic anemia - Discharge Medications Prescriptions: levoFLOXacin [Levaquin] 750 mg PO Q48H #10 tablet Omeprazole [PriLOSEC] 40 mg PO BID #60 Home Medications: Calcitriol [Rocaltrol] 0.25 mcg PO DAILY 12/16/16 [History] Furosemide [Lasix] 20 mg PO DAILY PRN 12/16/16 [History] Insulin ASPART [Novolog Flexpen] 0 units SQ TID 12/16/16 [History] Insulin Degludec [Tresiba Flextouch U-100] 80 unit SQ HS 12/16/16 [History] Nafcillin 12 gm IV Q24H #42 vial 12/19/16 [Rx] metroNIDAZOLE [Flagyl] 500 mg PO TID #126 tab 12/19/16 [Rx] Clopidogrel [Plavix] 75 mg PO DAILY 01/02/17 [History] Docusate [Colace] 200 mg PO DAILY 01/02/17 [History] Finasteride [Proscar] 5 mg PO DAILY 01/02/17 [History] Fluticasone Propionate Nasal [Flonase] 100 mcg NS DAILY PRN 01/02/17 [History] Glimepiride [Amaryl] 4 mg PO DAILY 01/02/17 [History] HYDROcodone/Acet 5/325 mg [[place] 5-325 mg] 1 tab PO Q8H PRN 01/02/17 [History] Metoprolol XL (24 HR) Succ [Toprol Xl] 25 mg PO DAILY 01/02/17 [History] Nitroglycerin [Nitrostat] 0.4 mg SL Q5M PRN 01/02/17 [History] Rosuvastatin [Crestor] 40 mg PO HS 01/02/17 [History] Saxagliptin HCl [Onglyza] 5 mg PO DAILY 01/02/17 [History] Sertraline [Zoloft] 100 mg PO DAILY 01/02/17 [History] carBAMazepine [Tegretol] 200 mg PO Q12H 01/02/17 [History] Omeprazole [PriLOSEC] 40 mg PO BID #60 01/04/17 [Rx] levoFLOXacin [Levaquin] 750 mg PO Q48H #10 tablet 01/04/17 [Rx] Allergies/Adverse Reactions: 3 Allergy/AdvReac Type Severity Reaction Status Date / Time No Known Allergies Allergy Verified 12/28/16 09:44 Date of admission: 01/02/17 23:24 Primary care physician: Raoul Gaona Consults: Dr. Tammi Brandon Discharging clinician: Bebeto Serrato Anticipated date of discharge: 01/04/17 - Patient Status Disposition: Home Health Service Condition: Fair Functional capacity at discharge: uses cane/walker Overall status at discharge: patient is progressing back to baseline - Discharge Instructions Follow Up With: Raoul Gaona DO [Primary Care Provider] - Guanakito Brandon DPM [Partnered Physician] - Jasmin Cohen, RICARDO [Advanced Practice Nurse] - 01/18/17 (As scheduled) Andrei Cadena MD [Partnered Physician] - (1-2 weeks ) Additional Instructions: Please follow up with your primary care physician as scheduled. Please follow up Jasmin Cohen as scheduled. Please follow up with podiatry. Please resume your home medications. Please continue your IV antibiotics. Please take Levaquin every other day. Please do not put weight on your left foot. Home health will change your wound vac dressing every 3 days. Please return for any new or worsening symptoms. - Diet and Activity Activity: increase activity as tolerated (No weight bearing of Left foot) Diet: diabetic diet Interval History: Patient seen and examined at bedside. Patient states he feels good today. He has no complaints. He had a bowel movement this morning that was brown and not black. Denies fever, chills, chest pain, dyspnea, melena, hematochezia. Hospital course: Mr. Anguiano is a 72 year old male with history of DM2 presents due to abnormal labs. He states that he had routine labs drawn and was told that his blood counts were low. Patient states that he had melanotic stools for 1 week. He was otherwise asymptomatic. Patient was admitted and had an upper GI endoscopy which revealed a nonbleeding ulcer. Patient received PPI infusion for 24 hours. Patient also has an infected diabetic wound on his left foot which was followed by podiatry. Podiatry evaluated the patient and felt that the patient would benefit from a left third toe amputation and he underwent the procedure initially evening. Discharge plan was discussed with podiatry and the patient will be sent home with a wound VAC. This case was also discussed with infectious disease who are following the patient as an outpatient and we will continue his antibiotic regimen with IV nafcillin, oral metronidazole, and will add oral Levaquin. Patient was stable to time of discharge. - Time Spent with Patient Total time spent providing and/or coordinating discharge services: - Constitutional Vitals: Temp Pulse Resp BP Pulse Ox 98.5 F 79 15 151/80 93 01/04/17 07:55 01/04/17 07:55 01/04/17 07:55 01/04/17 07:55 01/04/17 07:55 General appearance: Present: cooperative, A&O X 3, pleasant, no acute distress, obese, answers questions appropriately - Respiratory Respiratory exam: Present: CTAB. Absent: rales, rhonchi - Cardiovascular Cardiovascular exam: Present: RRR. Absent: gallop, rubs, systolic murmur - GI/Abdominal GI/Abdominal exam: Present: normal bowel sounds, soft. Absent: distended, tenderness - Extremities Exam Extremities exam: Present: warm. Absent: pedal edema, tenderness - Neurological Exam Neurological exam: Present: alert, CN II-XII intact, oriented X3, no focal deficits - VTE Reasons for not Prescribing Prophylaxis: Medical contraindication <Moses Mayorga - Last Filed: 01/04/17 17:26> Date of Encounter: 01/04/17 - Discharge Diagnosis (1) Peptic ulcer disease with hemorrhage Status: Resolved (2) Anemia Status: Acute Qualifiers: Anemia type: other cause Other causes of anemia: acute posthemorrhagic Qualified Code(s): D62 - Acute posthemorrhagic anemia (3) Diabetes mellitus Priority: Secondary Status: Chronic Qualifiers: Diabetes mellitus type: type 2 Diabetes mellitus complication status: with neurologic complications Diabetes mellitus complication detail: with polyneuropathy Diabetes mellitus detention insulin use: with rat exterminator use Qualified Code(s): E11.42 - Type 2 diabetes mellitus with diabetic polyneuropathy; 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 (4) Diabetic ulcer of left foot Status: Acute Qualifiers: Diabetic foot ulcer location: midfoot Diabetes mellitus type: type 2 Non- pressure ulcer stage: unspecified non-pressure ulcer stage Qualified Code(s): E11.621 - Type 2 diabetes mellitus with foot ulcer; L97.429 - Non-pressure chronic ulcer of left heel and midfoot with unspecified severity (5) Obesity (BMI 30.0-34.9) Priority: Secondary Status: Chronic (6) CAD (coronary artery disease) Priority: Secondary Status: Chronic Qualifiers: Coronary Disease-Associated Artery/Lesion type: [place] artery [place] vs. transplanted heart: [place] heart Associated angina: without angina Qualified Code(s): I25.10 - Atherosclerotic heart disease of [place] coronary artery without angina pectoris Date of admission: 01/02/17 23:24 Primary care physician: Raoul Gaona Consults: 01/04/17 15:52 Consult to Invasive Line Access Team [CONS] Routine Reason for Consult: Picc Line Insertion Line Type: PICC Hospital course: Mr. Anguiano is a 72 year old male - Time Spent with Patient Total time spent providing and/or coordinating discharge services: 38min - Constitutional Vitals: Temp Pulse Resp BP Pulse Ox 98.0 F 84 18 175/84 95 01/04/17 14:46 01/04/17 14:46 01/04/17 14:46 01/04/17 14:46 01/04/17 14:46 - Attending Attestation I examined this patient and my medical decision-making was reviewed with the Resident Physician on 01/04/17. I agree with the documented findings, disposition and treatment plan as described except to the extent set forth below. Mr Anguiano is feeling OK today. He had surgery last evening. Wound vac placed today. Received one unit of blood. PICC being placed as well. He is afebrile and vitals stable. He will be discharged today. Exam alert. Comfortable Mucus membranes dry Heart reg No wheeze Abd soft Plan: D/C today Continue IV Nafcillin per ID Wound vac per podiatry.
[2017-01-04] MEDS ORDERED: 0.9 % Sodium Chloride 250 ML ONE (12:18)
--- NOTE | 2017-01-04 12:58 | Physician Discharge Referral ---
Home Health/Hosp Referral Info Transfer to: Home Health Provider in Charge Post Discharge: PCP - Diagnosis (1) Peptic ulcer disease with hemorrhage Priority: Primary Status: Resolved (2) Diabetic ulcer of left foot Priority: Primary Status: Acute (3) Anemia Priority: Primary Status: Acute (4) Acute on chronic renal failure Priority: Secondary Status: Resolved - Respiratory Orders Smoking Cessation: Smoking cessation has been advised. For more information, call the [employer] Tobacco Quit Line at 6-475-XVWM-NOW. - Dressing/Wound Care Site: L foot Type of Dressing/Treatments w/Frequency: Wound vac, dressing changes every 3 days - Diet/Nutrition Diet/Nutrition Orders: Cardiac - Activity Activity Orders: Up ad jasmin (No weight bearing on L foot) - Services Needed Following services are medically necessary services: Nursing, Home Health Aide, Physical Therapy, Occupational Therapy, Home Infusion - Transfer Medications Prescriptions: levoFLOXacin [Levaquin] 750 mg PO Q48H #10 tablet Omeprazole [PriLOSEC] 40 mg PO BID #60 Home Medications: Calcitriol [Rocaltrol] 0.25 mcg PO DAILY 12/16/16 [History] Furosemide [Lasix] 20 mg PO DAILY PRN 12/16/16 [History] Insulin ASPART [Novolog Flexpen] 0 units SQ TID 12/16/16 [History] Insulin Degludec [Tresiba Flextouch U-100] 80 unit SQ HS 12/16/16 [History] Nafcillin 12 gm IV Q24H #42 vial 12/19/16 [Rx] metroNIDAZOLE [Flagyl] 500 mg PO TID #126 tab 12/19/16 [Rx] Clopidogrel [Plavix] 75 mg PO DAILY 01/02/17 [History] Docusate [Colace] 200 mg PO DAILY 01/02/17 [History] Finasteride [Proscar] 5 mg PO DAILY 01/02/17 [History] Fluticasone Propionate Nasal [Flonase] 100 mcg NS DAILY PRN 01/02/17 [History] Glimepiride [Amaryl] 4 mg PO DAILY 01/02/17 [History] HYDROcodone/Acet 5/325 mg [[place] 5-325 mg] 1 tab PO Q8H PRN 01/02/17 [History] Metoprolol XL (24 HR) Succ [Toprol Xl] 25 mg PO DAILY 01/02/17 [History] Nitroglycerin [Nitrostat] 0.4 mg SL Q5M PRN 01/02/17 [History] Rosuvastatin [Crestor] 40 mg PO HS 01/02/17 [History] Saxagliptin HCl [Onglyza] 5 mg PO DAILY 01/02/17 [History] Sertraline [Zoloft] 100 mg PO DAILY 01/02/17 [History] carBAMazepine [Tegretol] 200 mg PO Q12H 01/02/17 [History] Omeprazole [PriLOSEC] 40 mg PO BID #60 01/04/17 [Rx] levoFLOXacin [Levaquin] 750 mg PO Q48H #10 tablet 01/04/17 [Rx] Allergies/Adverse Reactions: 3 Allergy/AdvReac Type Severity Reaction Status Date / Time No Known Allergies Allergy Verified 12/28/16 09:44 Certification: Further, I certify that my clinical findings support that this patient is homebound (i.e. absences from home require considerable and taxing effort and are for medical reasons or buddhism services or infrequently or short duration when for other reasons) because: Homebound Reason: Patient requires assistance of a person or device to safely leave home, Post-surgery restriction and or conditions limit ability to leave home Attestation: My signature below is to certify that this patient is under my care and that I, or nurse practitioner, or a physician's assistant scientist working with me, has a face-to -face encounter with this patient.
--- NOTE | 2017-01-04 14:08 | Podiatry Progress Note ---
Date of Encounter: 03/06/17 Time of Encounter: 12:00 - Assessment and Plan (1) Diabetic ulcer of left foot Status: Acute Assessment: Wound vac intact and running without issue. 50ml bloody drainage to canister. Plan: Patient to go home with wound vac therapy. Black granufoam to wound bed. Change MWF per home health care Keep wrapped with dry dressing and stockinette. Patient to wear post op shoe at all times with ambulation- has one at bedside Patient to put as much weight as possible to heel. A culture obtained to wound on 01/01 is growing a gram negative tonie at this time Patient will continue antibiotic therapy at home with IV nafcillin, oral metronidazole, and oral levaquin will be added Patient will follow up with Jasmin Cohen NP in ID after discharge for monitoring and continued therapy. Patient will need to be seen in podiatry clinic in 1 week- nurse to please make appointment Patient instructed to monitor and report and changes in sensation, pain, or noted streaking up leg. Call with any fevers chills n/v or flu like symptoms Go to ED with any shortness of breath, calf pain or chest pain. 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 Incision and drainage dorsal aspect of left foot. Incision and drainage of left third digit with wound VAC placement Per , post operative day #1 Patient up to bathroom at time of arrival. She states he has minimal pain. He denies any fevers, chills, nausea vomiting, or flulike symptoms. Patient denies any shortness of breath or calf pain. Wound VAC and accompanying dressing intact. Objective - Vital Signs Vital Signs: Vital Signs Temp Pulse Resp BP Pulse Ox 01/04/17 12:49 98.2 F 80 18 180/84 96 01/04/17 12:35 98.1 F 80 18 196/88 01/04/17 11:05 98.2 F 78 16 181/92 96 01/04/17 07:55 98.5 F 79 15 151/80 93 01/04/17 04:29 98.5 F 76 16 155/76 95 01/03/17 23:39 98.1 F 71 15 167/80 95 01/03/17 21:25 98.5 F 67 16 155/78 95 01/03/17 20:20 98.5 F 67 16 165/75 96 01/03/17 19:31 95 01/03/17 19:29 98.5 F 71 16 165/75 95 01/03/17 18:48 98.3 F 69 14 166/71 95 01/03/17 18:22 98.3 F 69 14 166/71 95 01/03/17 18:20 98.3 F 69 14 166/71 95 01/03/17 14:57 98.1 F 72 17 174/81 97 01/03/17 14:22 98.1 F 72 16 176/82 96 Intake and Output 01/03/17 01/04/17 01/04/17 23:59 07:59 15:59 Intake Total 1300 / 1300 1680 / 1680 820 / 820 Output Total 40 / 40 635 / 635 Balance 1260 / 1260 1045 / 1045 820 / 820 Intake: IV Fluids 1300 / 1300 1200 / 1200 100 / 100 0.9 % Sodium Chloride 1, 1000 / 1000 1000 / 1000 000 ML @ 100 mls/hr IVC . Q10H DANETTE Rx#:[id number] Protonix 40 MG In 0.9 % 200 / 200 100 / 100 100 / 100 Sodium Chloride (Mini-Bag +) 100 ML @ 20 mls/hr IVC .Q5H DANETTE Rx#: [id number] Nafcillin 3,000 MG In 100 / 100 100 / 100 Dextrose 5% 100 ML @ 16. 667 mls/hr IVPB Q6HR DANETTE Rx#:[id number] Oral 480 / 480 720 / 720 Blood Product 0 / 0 Rbcs Leuko Poor As-1 0 / 0 Unit [id number] Output: Urine 625 / 625 Estimated Blood Loss Wound Drainage Left Lower Foot Other: Meal Lunch Percent of Meal Consumed 100% Blood Glucose* 83 257 188 - Exam Exam: Wound vac intact and running without issue at this time 50ml serosang drainage noted to canister Will leave dressing intact at this time No sensation to light touch-patient is neuropathic- slight sensation to moderate touch Cap refill <3 seconds Toes warm to touch Movement intact. No calf pain with manual compression. Patient awake, alert and oriented. - Lab Result Diagrams: 01/04/17 04:25 01/04/17 04:25 Labs: Abnormal lab results RBC 2.64 M/mcL (4.19-5.50) L 01/04/17 04:25 Hgb 7.6 g/dL (12.9-16.9) L 01/04/17 04:25 Hct 25.0 % (37.5-50.1) L 01/04/17 04:25 MCHC 30.4 g/dL (31.6-35.5) L 01/04/17 04:25 RDW 14.8 % (11.5-14.5) H 01/04/17 04:25 Plt Count 542 K/mcL (140-400) H 01/04/17 04:25 MPV 9.3 fL (9.4-12.4) L 01/04/17 04:25 Chloride 110 mEq/L (98-109) H 01/04/17 04:25 Creatinine 1.76 mg/dL (0.72-1.25) H 01/04/17 04:25 Est GFR ( Amer) 47 (> 60) L 01/04/17 04:25 Est GFR (Non-Af Amer) 38 (> 60) L 01/04/17 04:25 Glucose 261 mg/dL (70-99) H 01/04/17 04:25 Calculated Osmolality 307 (280-300) H 01/04/17 04:25 Calcium 8.3 mg/dL (8.6-10.8) L 01/04/17 04:25 Albumin 1.8 g/dL (3.5-5.0) L 01/04/17 04:25 Globulin 4.6 g/dL (2.4-3.5) H 01/04/17 04:25 Albumin/Globulin Ratio 0.4 (1.1-2.2) L 01/04/17 04:25 Stool Occult Blood Positive (Negative) A 01/02/17 16:30 - VTE Reasons for not Prescribing Prophylaxis: Medical contraindication Consult Discharge Plan - Plan Instructions: Anemia (GEN), Negative Pressure Wound Therapy (DC) Additional Instructions: Please follow up with your primary care physician as scheduled. Please follow up Jasmin Cohen as scheduled. Please follow up with podiatry. Please resume your home medications. Please continue your IV antibiotics. Please take Levaquin every other day. Please do not put weight on your left foot. Home health will change your wound vac dressing every 3 days. Please return for any new or worsening symptoms. Referrals: Raoul Gaona DO [Primary Care Provider] - Guanakito Brandon DPM [Partnered Physician] - Jasmin Cohen, [employer]OM CONVEYOR OPERATOR [Advanced Practice Nurse] - 01/18/17 (As scheduled) Andrei Cadena MD [Partnered Physician] - (1-2 weeks ) Prescriptions: levoFLOXacin [Levaquin] 750 mg PO Q48H #10 tablet Omeprazole [PriLOSEC] 40 mg PO BID #60
[2017-01-04] MEDS ORDERED: Lidocaine -MPF 1% 5 ML AMPUL INFILT ONE (15:52)
[2017-01-04] MEDS ORDERED: Lidocaine -MPF 1% 2 ML VIAL INFILT ONE (17:00)
[2017-01-05 08:15] VITALS: BP 180/86
== END 2017-01-04 17:51 | disposition home health service (06) | DRG 357 ==
LOC: EMEROO 13:53 → 3BNU 13:53 → SUATTDRO 23:24
PROVIDERS: ADMIT Internal Medicine; ATTEND Internal Medicine
PROC: ENDOEBX (2017-01-03 09:15)

== ENCOUNTER 2017-01-20 17:26 | Inpatient (IN) ==
[2017-01-20 19:13] LABS: Basophils % 0.6 %; Eosinophils # 0.2 K/mcL (0.0-0.6); Eosinophils % 4.3 %; Hematocrit 34.7 % (37.5-50.1); Hemoglobin 10.9 g/dL (12.9-16.9); Immature Granulocytes % 0.4 % (0-4); Immature Platelets 1.9 % (1.1-6.1); Lymphocytes # 1.2 K/mcL (0.6-4.6); Lymphocytes % 24.7 %; Mean Corpuscular HGB Conc 31.4 g/dL (31.6-35.5); Mean Corpuscular Hemoglobin 28.8 pg (28.0-33.3); Mean Corpuscular Volume 91.8 fL (83.0-100.0); Mean Platelet Volume 9.6 fL (9.4-12.4); Monocytes # 0.4 K/mcL (0.0-1.3); Monocytes % 7.4 %; Neutrophils # 3.1 K/mcL (1.6-8.9); Platelet Count 304 K/mcL (140-400); Red Blood Count 3.78 M/mcL (4.19-5.50); Red Cell Distribution Width 15.6 % (11.5-14.5); Segmented Neutrophils % 62.6 %
[2017-01-20 19:17] LABS: INR 1.1; Prothrombin Time 11.8 Seconds (9.4-12.1)
[2017-01-20 19:19] LABS: Activated Partial Thrombo Time 30.6 Seconds (26.0-36.0)
[2017-01-20 19:24] LABS: Calcium 9.2 mg/dL (8.6-10.8); Potassium 4.3 mEq/L (3.5-4.5)
[2017-01-20] MEDS ORDERED: *HR* Labetalol 100 MG/20 ML MDV IVP ONE (19:45)
[2017-01-20] MEDS ORDERED: Aspirin 325 MG TABLET PO ONE (19:46)
[2017-01-20] MEDS ORDERED: Insulin Human Regular 10 UNIT in 0.9 % Sodium Chloride 10 ML IV ONE (19:46)
--- NOTE | 2017-01-20 19:56 | Emergency Department Note ---
Disposition Clinical Impression: Hypertensive emergency, DANIE (acute kidney injury), Elevated troponin, Hyperglycemia Disposition: Admitted As Inpatient Condition: Good Referrals: Unassigned,Provider [Non-Partnered Physician] - Forms: Work/School Release, ED Satisfaction Letter General Adult HPI - General Chief complaint: ED General Medical Stated complaint: HTN Time Seen by Provider: 01/20/17 19:29 Source: patient Limitations: no limitations Nursing Notes Reviewed: Yes Vital Signs Reviewed: Yes - History of Present Illness HPI Narrative: 72-year-old male who reports that he ordered his medications by phone and they are to be delivered by male. He states he ordered them a while ago but they just have not shown up yet. The medications that he is out of our his antihypertensives and also his glucose test strips. He was told by his home health nurse to come to the emergency department because his blood pressure was 200 systolic. He denies having any chest pain or headache. He denies any change in vision. In reading the triage note it is said that he has some change in vision or eye further questioned him on this and he says that has been ever since his cataract surgery. He denies any dyspnea. He denies any difficulty with urination. He denies any neurologic symptoms such as numbness or weakness. Pain Scale: 0 Improves with: nothing Worsens with: nothing Associated symptoms: Reports: denies other symptoms Treatments Prior to Arrival: none - Related Data Home Medications Medication Instructions Recorded Confirmed Calcitriol [Rocaltrol] 0.25 mcg PO DAILY 12/16/16 01/02/17 Furosemide [Lasix] 20 mg PO DAILY PRN 12/16/16 01/02/17 Insulin ASPART [Novolog Flexpen] 0 units SQ TID 12/16/16 01/02/17 Insulin Degludec [Tresiba 80 unit SQ HS 12/16/16 01/02/17 Flextouch U-100] Clopidogrel [Plavix] 75 mg PO DAILY 01/02/17 01/02/17 Docusate [Colace] 200 mg PO DAILY 01/02/17 01/02/17 Finasteride [Proscar] 5 mg PO DAILY 01/02/17 01/02/17 Fluticasone Propionate Nasal 100 mcg NS DAILY PRN 01/02/17 01/02/17 [Flonase] Glimepiride [Amaryl] 4 mg PO DAILY 01/02/17 01/02/17 HYDROcodone/Acet 5/325 mg [[place] 1 tab PO Q8H PRN 01/02/17 01/02/17 5-325 mg] Metoprolol XL (24 HR) Succ [Toprol 25 mg PO DAILY 01/02/17 01/02/17 Xl] Nitroglycerin [Nitrostat] 0.4 mg SL Q5M PRN 01/02/17 01/02/17 Rosuvastatin [Crestor] 40 mg PO HS 01/02/17 01/02/17 Saxagliptin HCl [Onglyza] 5 mg PO DAILY 01/02/17 01/02/17 Sertraline [Zoloft] 100 mg PO DAILY 01/02/17 01/02/17 carBAMazepine [Tegretol] 200 mg PO Q12H 01/02/17 01/02/17 Previous Rx's Medication Instructions Recorded Nafcillin 12 gm IV Q24H #42 vial 12/19/16 metroNIDAZOLE [Flagyl] 500 mg PO TID #126 tab 12/19/16 Omeprazole [PriLOSEC] 40 mg PO BID #60 01/04/17 levoFLOXacin [Levaquin] 750 mg PO Q48H #10 tablet 01/04/17 Allergies Allergy/AdvReac Type Severity Reaction Status Date / Time No Known Allergies Allergy Verified 12/28/16 09:44 All systems ED: reviewed and negative except as stated. Constitutional: Denies: fever Eyes: Denies: vision change ENT ED: Denies: throat pain Cardiovascular: Denies: chest pain Respiratory: Denies: cough Gastrointestinal: Denies: abdominal pain Genitourinary: Denies: dysuria Musculoskeletal: Denies: back pain Integumentary: Denies: rash Neurological: Denies: headache Endocrine: Denies: fatigue Past Medical History - Past Medical History Medical history: Reports: cancer, coronary artery disease, diabetes, hyperlipidemia, hypertension, myocardial infarction, renal disease Surgical history: Reports: cataract, coronary bypass (CABG) (stents x9) Psychiatric history: Reports: depression - Social History Smoking Status: Never smoker Smokeless Tobacco Status: No Alcohol use: Reports: none Drug use: Reports: none Physical Exam - General Limitations: no limitations General appearance: alert, in no apparent distress - Head Head exam: atraumatic - Eye Eye exam: Present: normal appearance, PERRL - ENT ENT exam: normal exam, normal oropharynx - Neck Neck exam: Present: normal inspection - Chest Chest inspection: Present: normal inspection - Respiratory Respiratory exam: Present: normal lung sounds bilaterally. Absent: respiratory distress - Cardiovascular Cardiovascular exam: Present: regular rate, normal rhythm - Abdominal Exam Abdominal exam: Present: soft, Non-Tender - Extremities Exam Extremities exam: Present: normal inspection, other (Bandage over prior foot surgery on right foot.) - Neurological Exam Neurological exam: Present: alert, oriented X3 - Psychiatric Psychiatric exam: Present: normal affect, normal mood - Skin Skin exam: Present: warm, dry Course Course Narrative: He is not having any chest pain, shortness of breath, neurologic symptoms. However his troponin is elevated which does classify this as hypertensive emergency. It is likely secondary to his not taking his home medications. In addition he does have an acute kidney injury. I will give him some IV fluids, IV insulin, IV antihypertensives with a goal of decreasing his systolic blood pressure by 20%. He will be admitted to the hospital after receiving his aspirin. He does have significant cardiac history with multiple stents. EKG shows normal sinus rhythm. There is no ST deviation. It is unchanged from priors His blood pressure is decreased from 205 systolic to 169 systolic after 20mg of labetalol. Accepted by Dr Hoffmann. Vital Signs Temperature 98.6 F 01/20/17 17:49 Pulse Rate 87 01/20/17 17:49 Respiratory Rate 16 01/20/17 17:49 Blood Pressure 179/104 01/20/17 17:49 O2 Sat by Pulse Oximetry 95 01/20/17 17:49 Temperature 98.6 F 01/20/17 17:49 Pulse Rate 81 01/20/17 20:55 Respiratory Rate 19 01/20/17 20:55 Blood Pressure 181/101 01/20/17 20:55 O2 Sat by Pulse Oximetry 98 01/20/17 20:55 Oxygen Delivery Oxygen Delivery Room Air Medical Decision Making - Medical Records Medical records reviewed: Yes I reviewed the patient's medical records. - Lab Data Lab results reviewed: Yes I reviewed the patient's lab results. Result diagrams: 01/20/17 19:05 01/20/17 19:05 Lab Results 01/20/17 01/20/17 01/20/17 Range/Units 19:05 19:05 19:05 WBC 4.9 (4.3-11.1) K/mcL RBC 3.78 L (4.19-5.50) M/mcL Hgb 10.9 L D (12.9-16.9) g/dL Hct 34.7 L (37.5-50.1) % MCV 91.8 (83.0-100.0) fL MCH 28.8 (28.0-33.3) pg MCHC 31.4 L (31.6-35.5) g/dL RDW 15.6 H (11.5-14.5) % Plt Count 304 (140-400) K/mcL MPV 9.6 (9.4-12.4) fL Immature Gran % 0.4 (0-4) % Seg Neutrophils % 62.6 % Lymphocytes % 24.7 % Monocytes % 7.4 % Eosinophils % 4.3 % Basophils % 0.6 % Neutrophils # 3.1 (1.6-8.9) K/mcL Lymphocytes # 1.2 (0.6-4.6) K/mcL Monocytes # 0.4 (0.0-1.3) K/mcL Eosinophils # 0.2 (0.0-0.6) K/mcL Basophils # 0.0 (0.0-0.2) K/mcL Immature Plt Fraction 1.9 (1.1-6.1) % PT 11.8 (9.4-12.1) Seconds INR 1.1 APTT 30.6 (26.0-36.0) Seconds Sodium 138 (136-145) mEq/L Potassium 4.3 (3.5-4.5) mEq/L Chloride 105 (98-109) mEq/L Carbon Dioxide 24 (19-29) mEq/L BUN 30 H (8-26) mg/dL Creatinine 2.26 H (0.72-1.25) mg/dL Est GFR ( Amer) 35 L (> 60) Est GFR (Non-Af Amer) 29 L (> 60) BUN/Creatinine Ratio 13 (6-26) Glucose 536 H* (70-99) mg/dL POC Glucose (58-89) Calculated Osmolality 316 H (280-300) Calcium 9.2 (8.6-10.8) mg/dL Troponin I (0-0.03) ng/mL 01/20/17 01/20/17 01/20/17 Range/Units 19:05 20:53 20:54 WBC (4.3-11.1) K/mcL RBC (4.19-5.50) M/mcL Hgb (12.9-16.9) g/dL Hct (37.5-50.1) % MCV (83.0-100.0) fL MCH (28.0-33.3) pg MCHC (31.6-35.5) g/dL RDW (11.5-14.5) % Plt Count (140-400) K/mcL MPV (9.4-12.4) fL Immature Gran % (0-4) % Seg Neutrophils % % Lymphocytes % % Monocytes % % Eosinophils % % Basophils % % Neutrophils # (1.6-8.9) K/mcL Lymphocytes # (0.6-4.6) K/mcL Monocytes # (0.0-1.3) K/mcL Eosinophils # (0.0-0.6) K/mcL Basophils # (0.0-0.2) K/mcL Immature Plt Fraction (1.1-6.1) % PT (9.4-12.1) Seconds INR APTT (26.0-36.0) Seconds Sodium (136-145) mEq/L Potassium (3.5-4.5) mEq/L Chloride (98-109) mEq/L Carbon Dioxide (19-29) mEq/L BUN (8-26) mg/dL Creatinine (0.72-1.25) mg/dL Est GFR ( Amer) (> 60) Est GFR (Non-Af Amer) (> 60) BUN/Creatinine Ratio (6-26) Glucose (70-99) mg/dL POC Glucose 401 H* 420 H* (58-89) Calculated Osmolality (280-300) Calcium (8.6-10.8) mg/dL Troponin I 0.05 H* (0-0.03) ng/mL - Radiology Data Radiology results reviewed: Yes I reviewed the patient's radiology results. - EKG Data EKG #1 EKG attestation: Yes I reviewed and interpreted this EKG. EKG shows normal: sinus rhythm Rate: normal Rhythm: NSR [place]/QRS: normal When compared to previous EKG there are: no significant changes Interpretation: no acute changes Attestation Statement - Attestation Attestation: I, Lul Mancilla MD, personally evaluated this patient and discussed their management with the resident physician. I reviewed the resident's note and agree with the documented findings, medical decision making, and plan of care. 72-year-old male referred to the emergency department by his home health nurse for evaluation of elevated blood pressure. Patient has been out of his blood pressure medicine for the past 2 days. He also has not been taking his insulin because he was out of his glucometer strips and was unable to check his blood sugar so he did not take his insulin. He has no specific complaints. He denies any chest pain or shortness of breath. No palpitations. No dizziness or syncope. No neurological symptoms. No headache. On examination patient is a well-developed well-nourished well-appearing male in no acute distress. He is alert and oriented 3. There is no cyanosis or diaphoresis. Breath sounds are clear and equal bilaterally. Heart regular rate and rhythm. Abdomen is soft and nontender with normal bowel sounds. No gross focal neurological deficits. Labs reviewed. Blood sugar 536. Troponin 0.05. The hospitalist, Dr. Hoffmann, was consulted and accepted admission of the patient.
[2017-01-21] MEDS ORDERED: Ondansetron 4 MG/2 ML VIAL IVP PRN (00:53)
[2017-01-21] MEDS ORDERED: *HR* Morphine 2 MG/ML SYRINGE IVP PRN (00:53)
[2017-01-21] MEDS ORDERED: Dextrose Gel 15 GM PO PRN ×2 (00:53)
[2017-01-21] MEDS ORDERED: Naloxone 0.4 MG/ML INJ IVP PRN (00:53)
[2017-01-21] MEDS ORDERED: *HR* Dextrose 50 % in Water (Syg) 50 ML SYRINGE IVP PRN (00:53)
[2017-01-21] MEDS ORDERED: D5% in Water 1,000 ML IVC PRN (00:53)
[2017-01-21] MEDS ORDERED: Nitroglycerin 0.4 MG TAB.SUBL SL PRN (01:01)
[2017-01-21] MEDS ORDERED: *HR* HYDROcodone/Acet 5/325 mg TABLET PO PRN (01:01)
[2017-01-21] MEDS ORDERED: Fluticasone Propionate Nasal 50 MCG/SPRAY BOTTLE NS PRN (01:01)
--- NOTE | 2017-01-21 01:12 | Internal Med History&Physical ---
Date of Encounter: 01/21/17 Time of Encounter: 00:25 Assessment and Plan (1) Hypertensive emergency Current visit: Yes Status: Acute 1. Patient received Labetolol in ER with good response. 2. Resume home meds as appropriate. 3. Will add IV Hydralazine on a PRN basis for SBP > 160. 4. If unable to control BP, will consider adding Nicardipine drip. 5. Currently, patient asymptomatic and BP better than previously. (2) DANIE (acute kidney injury) Current visit: Yes Status: Acute 1. Renal function worse than baseline. 2. Hold Lasix, control BP, and monitor renal function. 3. If renal function worsens or fails to return to baseline, consult nephrology. (3) Elevated troponin Current visit: Yes Status: Acute 1. Likely due to hypertensive emergency. 2. Will cycle troponins adn EKG's. 3. Patient CP free and had no dyspnea. 4. Monitor closely. (4) Hyperglycemia Current visit: Yes Status: Acute 1. Resume home insulin dosing and add SSI. 2. Avoid oral agents while in the hospital. 3. With his degree of CKD, I would recommend stopping Amaryl and Onglyza. (5) DVT prophylaxis Current visit: No Status: Acute 1. Heparin SQ. Internal Medicine - H&P: HPI Chief complaint: high BP Admitted From: Emergency Dept Plans for Post Hospital Care: Home History of present illness: Mr. Anguiano is a 72 year old male [facility] the advice of [facility] home health nurse. His home health nurse was visiting today and, while assessing patient, noted his blood pressure was elevated. He was advised to go to the ER, and he reluctantly agreed to go. In the ER, he was noted to have hypertensive urgency and then emergency with significant symptoms including shortness of breath, weakness, vague chest tightness, and a systolic blood pressure above 200. Additionally, he had troponin elevation and worsening kidney function. Blood pressure was improved after some labetalol. He was then admitted to hospitalist service. Upon my assessment of the patient, he is currently chest pain-free. He has no shortness of breath. He denies any headache, nausea, vomiting, or vision changes. He feels better. He states he has been without his medications for the last 3 days, including his cardiac medications, blood pressure medications and his insulin. He obtains his medications through mail order pharmacy, and his medications have not yet been delivered. He is 3 days without medications now. He has been receiving his IV Nafcillin for his picc line, however. He had recently undergone surgery for his diabetic foot ulcer and is on antibiotics as per infectious diseases. Past Med Surg Social Fam HX - Past Medical History Attestation: Yes The following information was validated with the patient. Source: patient, old records reviewed Medical history: cancer, CHF, coronary artery disease, diabetes, hyperlipidemia , hypertension, malignancy, myocardial infarction, renal disease Psychiatric history: depression - Past Surgical History Surgical History: angioplasty/stent, cataract, coronary bypass (CABG) - Social History Smoking Status: Never smoker Smokeless Tobacco Status: No Alcohol use: none Drug use: none Current living situation: Home, With Family Activity Level: Independent ambulation - Family History Father Living Status: Hx Family Cardiac Disorders: Yes ([place]) Mother Living Status: Hx Family Cancer: Yes Internal Medicine - H&P: Meds Calcitriol [Rocaltrol] 0.25 mcg PO DAILY 12/16/16 [History] Furosemide [Lasix] 20 mg PO DAILY PRN 12/16/16 [History] Insulin ASPART [Novolog Flexpen] 0 units SQ TID 12/16/16 [History] Insulin Degludec [Tresiba Flextouch U-100] 80 unit SQ HS 12/16/16 [History] Nafcillin 12 gm IV Q24H #42 vial 12/19/16 [Rx] metroNIDAZOLE [Flagyl] 500 mg PO TID #126 tab 12/19/16 [Rx] Clopidogrel [Plavix] 75 mg PO DAILY 01/02/17 [History] Docusate [Colace] 200 mg PO DAILY 01/02/17 [History] Finasteride [Proscar] 5 mg PO DAILY 01/02/17 [History] Fluticasone Propionate Nasal [Flonase] 100 mcg NS DAILY PRN 01/02/17 [History] Glimepiride [Amaryl] 4 mg PO DAILY 01/02/17 [History] HYDROcodone/Acet 5/325 mg [[place] 5-325 mg] 1 tab PO Q8H PRN 01/02/17 [History] Metoprolol XL (24 HR) Succ [Toprol Xl] 25 mg PO DAILY 01/02/17 [History] Nitroglycerin [Nitrostat] 0.4 mg SL Q5M PRN 01/02/17 [History] Rosuvastatin [Crestor] 40 mg PO HS 01/02/17 [History] Saxagliptin HCl [Onglyza] 5 mg PO DAILY 01/02/17 [History] Sertraline [Zoloft] 100 mg PO DAILY 01/02/17 [History] carBAMazepine [Tegretol] 200 mg PO Q12H 01/02/17 [History] Omeprazole [PriLOSEC] 40 mg PO BID #60 01/04/17 [Rx] levoFLOXacin [Levaquin] 750 mg PO Q48H #10 tablet 01/04/17 [Rx] 3 Allergy/AdvReac Type Severity Reaction Status Date / Time No Known Allergies Allergy Verified 12/28/16 09:44 - Constitutional Constitutional: malaise, weakness, no chills, no fever(s) - EENT Eyes: no blurry vision, no change in vision Ears: no ear pain, no tinnitus Nose, mouth and throat: no nasal congestion, no sinus pressure, no sore throat - Cardiovascular Cardiovascular ROS IM: chest pain, dyspnea, no lightheadedness, no palpitations - Respiratory Respiratory: no cough, no hemoptysis, no chest congestion - Gastrointestinal Gastrointestinal: no abdominal pain, no diarrhea, no hematemesis, no hematochezia, no melena, no nausea, no vomiting - Genitourinary Genitourinary ROS male: no dysuria, no flank pain, no hematuria - Musculoskeletal Musculoskeletal ROS IM: no arthralgias, no atrophy, no back pain - Integumentary Integumentary IM: no rash, no jaundice - Neurological Neurological ROS: headache(s), no dizziness, no focal weakness - Psychiatric Psychiatric: no anxiety, no depression - Endocrine Endocrine IM: fatigue, no cold intolerance, no heat intolerance, no polydipsia, no polyuria - Allergic/Immunologic Allergic/Immunologic: no wheezing, no GI upset with certain foods - Constitutional Vitals: Temp Pulse Resp BP Pulse Ox 99.0 F 81 18 177/83 96 01/20/17 23:15 01/20/17 23:15 01/20/17 23:15 01/20/17 23:15 01/20/17 23:15 General appearance: Present: cooperative, A&O X 3, pleasant, no acute distress, answers questions appropriately - Head Head exam: Present: atraumatic, normal inspection - Expanded Head Exam Head exam expanded: Absent: abrasion, general tenderness - Eye Eye exam: Present: PERRL. Absent: scleral icterus Pupils: Present: normal accommodation - ENT ENT exam: Present: mucous membranes dry, normal exam - Neck Neck exam general surgery: Present: full ROM, supple. Absent: tenderness - Expanded Neck Exam Neck exam: Absent: carotid bruit - Respiratory Respiratory exam: Present: CTAB. Absent: chest wall tenderness, rales, respiratory distress, rhonchi, wheezes - Cardiovascular Cardiovascular exam: Present: RRR, +S1, +S2. Absent: JVD, systolic murmur - GI/Abdominal GI/Abdominal exam: Present: normal bowel sounds, soft. Absent: hepatomegaly, mass, splenomegaly, tenderness - Extremities Exam Extremities exam: Present: full ROM, warm. Absent: calf tenderness, joint swelling, pedal edema Additional comments: left foot with wound VAC in place - Back Exam Back exam: Present: normal inspection. Absent: CVA tenderness (L), CVA tenderness (R) - Neurological Exam Neurological exam: Present: alert, CN II-XII intact, oriented X3 Additional comments: decreased sensation in feet - Psychiatric Psychiatric exam: Present: normal affect, normal mood - Skin Skin exam: Present: dry, warm. Absent: rash Internal Med - H&P Results - Labs CBC & Chem 7: 01/20/17 19:05 01/20/17 19:05 - EKG Data -: EKG Interpreted by Myself EKG shows normal: sinus rhythm - EKG Data Prior EKG available for review: yes When compared to previous EKG: there is no significant change EKG comments: 01/21/17 01:23 NSR; no acute changes - Diagnostic Studies Chest x-ray Status: image reviewed by me (negative)
[2017-01-21] MEDS ORDERED: levoFLOXacin 750 MG TABLET PO SCH (01:15)
[2017-01-21] MEDS ORDERED: INSULIN DEGLUDEC SQ SCH (01:15)
[2017-01-21 01:41] LABS: Hemoglobin A1C 10.3 %
[2017-01-21] MEDS: carBAMazepine 200 MG TABLET PO SCH ×2 (02:19→12:32)
[2017-01-21] MEDS: Insulin DETEMIR 100 UNIT/ML X5UNITS SQ SCH ×2 (02:22→20:40)
[2017-01-21] MEDS: WATER IVPB SCH (04:47)
[2017-01-21] MEDS: D5 IVPB SCH (04:47)
[2017-01-21] MEDS: NAFCILLIN IVPB SCH (04:47)
[2017-01-21 05:39] LABS: Albumin/Globulin Ratio 0.4 (1.1-2.2); Bilirubin,Total 0.2 mg/dL (0.2-1.2); Calcium 8.5 mg/dL (8.6-10.8); Chol/HDL Ratio 9.6 (0-4.9); Globulin 4.2 g/dL (2.4-3.5); Magnesium 1.4 mg/dL (1.6-2.6); Potassium 3.6 mEq/L (3.5-4.5); Total Protein 5.9 g/dL (6.0-8.3)
[2017-01-21 05:43] LABS: Albumin 1.7 g/dL (3.5-5.0)
[2017-01-21 07:11] LABS: Basophils # 0.1 K/mcL (0.0-0.2); Basophils % 0.9 %; Eosinophils # 0.2 K/mcL (0.0-0.6); Eosinophils % 3.1 %; Hematocrit 33.7 % (37.5-50.1); Hemoglobin 10.7 g/dL (12.9-16.9); Immature Granulocytes % 0.3 % (0-4); Lymphocytes # 1.5 K/mcL (0.6-4.6); Lymphocytes % 25.4 %; Mean Corpuscular HGB Conc 31.8 g/dL (31.6-35.5); Mean Corpuscular Hemoglobin 29.2 pg (28.0-33.3); Mean Corpuscular Volume 91.8 fL (83.0-100.0); Monocytes # 0.3 K/mcL (0.0-1.3); Monocytes % 5.8 %; Neutrophils # 3.8 K/mcL (1.6-8.9); Platelet Count 301 K/mcL (140-400); Red Blood Count 3.67 M/mcL (4.19-5.50); Red Cell Distribution Width 15.9 % (11.5-14.5); Segmented Neutrophils % 64.5 %
[2017-01-21] MEDS: metroNIDAZOLE 500 MG TABLET PO SCH ×3 (08:39→20:37)
[2017-01-21] MEDS: *HR* Heparin 5,000 UNIT/ML VIAL SQ SCH ×2 (08:39→16:05)
[2017-01-21] MEDS: Finasteride 5 MG TABLET PO SCH (08:39)
[2017-01-21] MEDS: Insulin LISPRO 300 UNITS/3 ML VIAL SQ SCH ×3 (08:40→17:02)
[2017-01-21] MEDS: Acetaminophen 325 MG TABLET PO PRN ×2 (08:53→22:56)
[2017-01-21] MEDS ORDERED: Metoprolol XL (24 HR) Succ 25 MG TAB.ER.24H PO SCH (09:00)
--- NOTE | 2017-01-21 13:20 | Event Note ---
Date of Encounter: 01/21/17 Time of Encounter: 13:18 72/male Was sent to ER by his home health nurse for elevated blood pressure. Patient was evaluated in the emergency room where his systolic blood pressure was about 200. Patient was given appropriate treatment and his present medication control his blood pressure around 160 systolic. Patient also has diabetic foot ulcer and he is currently on antibiotics as per the recommendation from infectious disease. I have examined this patient at bedside. Patient's is next to him along with his grandson. Plan: We will continue present treatment. Likely home tomorrow.
[2017-01-22] MEDS: *HR* Heparin 5,000 UNIT/ML VIAL SQ SCH ×2 (01:54→10:24)
[2017-01-22] MEDS: carBAMazepine 200 MG TABLET PO SCH (01:54)
[2017-01-22] MEDS: WATER IVPB SCH (05:35)
[2017-01-22] MEDS: NAFCILLIN IVPB SCH (05:35)
[2017-01-22] MEDS: D5 IVPB SCH (05:35)
[2017-01-22 08:17] VITALS: BP 179/95
[2017-01-22] MEDS ORDERED: Metoprolol XL (24 HR) Succ 25 MG TAB.ER.24H PO SCH (09:00)
--- NOTE | 2017-01-22 09:00 | Discharge Summary ---
Addendum entered and electronically signed by Bebeto Serrato DO 01/22/17 11:27: While reviewing the patient's medical records prior to discharge it was noted that the patient takes sotalol at home. This had been held on admission. Patient had been without his sotalol for the weekend. Given that the patient has been off his sotalol for several days prescription with the cardiology team and they recommended restarting his sotalol and monitoring him for 24 hours and perform an EKG in the morning to evaluate QT prolongation. Therefore the discharge was canceled. I discussed this with the patient and family and the patient was adamant that he had to leave today. I discussed at length the risks of restarting sotalol without close monitoring including the risk for ventricular arrhythmias that could result in . On several occasions but the patient and the patient's daughter verbalized understanding of the risks and continued to be adamant that they had to leave. Therefore the patient will be leaving AMA, and he signed the AMA paperwork. A follow-up appointment was made with cardiology this week for close monitoring. Original Note: <Bebeto Serrato - Last Filed: 01/22/17 09:59> Date of Encounter: 01/22/17 Time of Encounter: 08:51 - Discharge Diagnosis (1) Hypertensive emergency Priority: Primary Status: Resolved (2) DANIE (acute kidney injury) Priority: Secondary Status: Resolved (3) Elevated troponin Priority: Secondary Status: Resolved (4) Hyperglycemia Priority: Secondary Status: Resolved - Discharge Medications Prescriptions: Metoprolol XL (24 HR) Succ [Toprol Xl] 50 mg PO DAILY #30 Nafcillin 12 gm IV Q24H #42 vial Home Medications: Calcitriol [Rocaltrol] 0.25 mcg PO DAILY 12/16/16 [History] Furosemide [Lasix] 20 mg PO DAILY PRN 12/16/16 [History] Insulin ASPART [Novolog Flexpen] 2 - 10 units SQ TID 12/16/16 [History] Insulin Degludec [Tresiba Flextouch U-100] 80 unit SQ HS 12/16/16 [History] metroNIDAZOLE [Flagyl] 500 mg PO TID #126 tab 12/19/16 [Rx] Clopidogrel [Plavix] 75 mg PO DAILY 01/02/17 [History] Docusate [Colace] 200 mg PO DAILY 01/02/17 [History] Finasteride [Proscar] 5 mg PO DAILY 01/02/17 [History] Fluticasone Propionate Nasal [Flonase] 100 mcg NS DAILY PRN 01/02/17 [History] HYDROcodone/Acet 5/325 mg [[place] 5-325 mg] 1 tab PO Q8H PRN 01/02/17 [History] Nitroglycerin [Nitrostat] 0.4 mg SL Q5M PRN 01/02/17 [History] Rosuvastatin [Crestor] 40 mg PO HS 01/02/17 [History] Sertraline [Zoloft] 100 mg PO DAILY 01/02/17 [History] carBAMazepine [Tegretol] 200 mg PO Q12H 01/02/17 [History] Isosorbide MONOnitrate (24 HR) [Imdur] 30 mg PO DAILY 01/21/17 [History] Levofloxacin [Levaquin] 750 mg PO DAILY 01/21/17 [History] Omeprazole [PriLOSEC] 40 mg PO DAILY 01/21/17 [History] Ramipril [Altace] 5 mg PO DAILY 01/21/17 [History] Sotalol [Betapace] 80 mg PO DAILY 01/21/17 [History] Metoprolol XL (24 HR) Succ [Toprol Xl] 50 mg PO DAILY #30 01/22/17 [Rx] Nafcillin 12 gm IV Q24H #42 vial 01/22/17 [Rx] levoFLOXacin [Levaquin] 750 mg PO Q48H tab 01/22/17 [Rx] Allergies/Adverse Reactions: 3 Allergy/AdvReac Type Severity Reaction Status Date / Time No Known Allergies Allergy Verified 12/28/16 09:44 Procedures/tests Complete & Pending: Procedures Performed prior 72 hours Category Date Time Status ECG 12 lead ECG [ECG] AM 0600 Y 01/21/17 06:00 Ordered Date of admission: 01/20/17 22:26 Primary care physician: Raoul Gaona Consults: 01/21/17 00:37 Consult to Warehouse Order Puller [CONS] Routine Reason for SW Consult: Patient is from home with his . Has [facility] therapies. Patient has home wound vac with continuous suction at 125mmHG. Arrives with right upper arm PICC line in place and home dose of Nafcillin infusing. 01/21/17 01:14 Consult to Wound Care [CONS] Routine Reason for Consult: wound vac for DFU Call Completed: No Discharging clinician: Bebeto Serrato Anticipated date of discharge: 01/22/17 - Patient Status Disposition: Home, Self-Care Condition: Good Functional capacity at discharge: independent ambulation Overall status at discharge: patient is progressing back to baseline - Discharge Instructions Instructions: Metoprolol (By mouth) Follow Up With: Raoul Gaona DO [Primary Care Provider] - 01/30/17 1:40 pm (1 week, Please follow up as schedule) Additional Instructions: Please follow up with your PCP within 1 week. Please resume your home medications. Please increase your Toprol XL to 50mg daily. Please return for new or worsening symptoms. - Diet and Activity Activity: increase activity as tolerated Diet: low salt diet Interval History: Patient seen and examined. Patient states that he feels pretty good today. He has no specific complaints. He denies chest pain, headaches, nausea, vomiting, shortness of breath. Hospital course: Mr. Anguiano is a 72 year old male with history of hypertension and COPD was admitted with hypertensive urgency. Patient was found to have a systolic blood pressure in the 190s on admission with headache and chest pain. Blood pressure was treated with labetalol and came down appropriately. Patient's blood pressure remained elevated above goal during his hospitalization although his symptoms completely resolved. Time of discharge the patient's blood pressure was elevated however he was asymptomatic and the patient was asking to be discharged. We increased the patient's Toprol-XL to 50 mg daily and recommended close follow-up with his primary care physician. Patient will be discharged home in stable condition. - Time Spent with Patient Total time spent providing and/or coordinating discharge services: - Constitutional Vitals: Temp Pulse Resp BP Pulse Ox 97.8 F 95 18 179/95 95 01/22/17 08:14 01/22/17 08:14 01/22/17 08:14 01/22/17 08:14 01/22/17 08:14 General appearance: Present: cooperative, A&O X 3, pleasant, no acute distress, answers questions appropriately - Respiratory Respiratory exam: Present: CTAB. Absent: rales, rhonchi, wheezes - GI/Abdominal GI/Abdominal exam: Present: normal bowel sounds, soft. Absent: distended, tenderness - Neurological Exam Neurological exam: Present: alert, CN II-XII intact, oriented X3, no focal deficits <Benjie López P - Last Filed: 01/22/17 18:58> Date of Encounter: 01/22/17 Procedures/tests Complete & Pending: Procedures Performed prior 72 hours Category Date Time Status ECG 12 lead ECG [ECG] AM 0600 Y 01/21/17 06:00 Ordered Date of admission: 01/20/17 22:26 Primary care physician: Raoul Gaona Consults: 01/21/17 00:37 Consult to Warehouse Order Puller [CONS] Routine Reason for SW Consult: Patient is from home with his . Has [facility] therapies. Patient has home wound vac with continuous suction at 125mmHG. Arrives with right upper arm PICC line in place and home dose of Nafcillin infusing. 01/21/17 01:14 Consult to Wound Care [CONS] Routine Reason for Consult: wound vac for DFU Call Completed: No Hospital course: Mr. Anguiano is a 72 year old male - Time Spent with Patient Total time spent providing and/or coordinating discharge services: - Constitutional Vitals: Temp Pulse Resp BP Pulse Ox 97.8 F 95 18 179/95 95 01/22/17 08:14 01/22/17 08:14 01/22/17 08:14 01/22/17 08:14 01/22/17 08:14 - Attending Attestation I examined this patient and my medical decision-making was reviewed with the Resident Physician. I agree with the documented findings, disposition and treatment plan as described except to the extent set forth below.
--- NOTE | 2017-01-22 09:30 | Physician Discharge Referral ---
<Bebeto Serrato - Last Filed: 01/22/17 09:29> Home Health/Hosp Referral Info Transfer to: Home Health Provider in Charge Post Discharge: PCP - Diagnosis (1) Hypertensive emergency Priority: Primary Status: Resolved (2) DANIE (acute kidney injury) Priority: Primary Status: Resolved (3) Elevated troponin Priority: Primary Status: Resolved (4) Hyperglycemia Priority: Secondary Status: Resolved - Respiratory Orders Smoking Cessation: Smoking cessation has been advised. For more information, call the [place] [employer] Quit Line at 3-305-PTMD-NOW. - Diet/Nutrition Diet/Nutrition Orders: Cardiac - Activity Activity Orders: Ambulate (with assist) - Services Needed Following services are medically necessary services: Nursing, Home Infusion - Transfer Medications Prescriptions: Metoprolol XL (24 HR) Succ [Toprol Xl] 50 mg PO DAILY #30 Nafcillin 12 gm IV Q24H #42 vial Home Medications: Calcitriol [Rocaltrol] 0.25 mcg PO DAILY 12/16/16 [History] Furosemide [Lasix] 20 mg PO DAILY PRN 12/16/16 [History] Insulin ASPART [Novolog Flexpen] 2 - 10 units SQ TID 12/16/16 [History] Insulin Degludec [Tresiba Flextouch U-100] 80 unit SQ HS 12/16/16 [History] metroNIDAZOLE [Flagyl] 500 mg PO TID #126 tab 12/19/16 [Rx] Clopidogrel [Plavix] 75 mg PO DAILY 01/02/17 [History] Docusate [Colace] 200 mg PO DAILY 01/02/17 [History] Finasteride [Proscar] 5 mg PO DAILY 01/02/17 [History] Fluticasone Propionate Nasal [Flonase] 100 mcg NS DAILY PRN 01/02/17 [History] HYDROcodone/Acet 5/325 mg [[place] 5-325 mg] 1 tab PO Q8H PRN 01/02/17 [History] Nitroglycerin [Nitrostat] 0.4 mg SL Q5M PRN 01/02/17 [History] Rosuvastatin [Crestor] 40 mg PO HS 01/02/17 [History] Sertraline [Zoloft] 100 mg PO DAILY 01/02/17 [History] carBAMazepine [Tegretol] 200 mg PO Q12H 01/02/17 [History] Isosorbide MONOnitrate (24 HR) [Imdur] 30 mg PO DAILY 01/21/17 [History] Levofloxacin [Levaquin] 750 mg PO DAILY 01/21/17 [History] Omeprazole [PriLOSEC] 40 mg PO DAILY 01/21/17 [History] Ramipril [Altace] 5 mg PO DAILY 01/21/17 [History] Sotalol [Betapace] 80 mg PO DAILY 01/21/17 [History] Metoprolol XL (24 HR) Succ [Toprol Xl] 50 mg PO DAILY #30 01/22/17 [Rx] Nafcillin 12 gm IV Q24H #42 vial 01/22/17 [Rx] levoFLOXacin [Levaquin] 750 mg PO Q48H tab 01/22/17 [Rx] Allergies/Adverse Reactions: 3 Allergy/AdvReac Type Severity Reaction Status Date / Time No Known Allergies Allergy Verified 12/28/16 09:44 Certification: Further, I certify that my clinical findings support that this patient is homebound (i.e. absences from home require considerable and taxing effort and are for medical reasons or nondenominational services or infrequently or short duration when for other reasons) because: Homebound Reason: Patient requires assistance of a person or device to safely leave home Attestation: My signature below is to certify that this patient is under my care and that I, or nurse practitioner, or a physician's custody assistant working with me, has a face-to -face encounter with this patient. <Benjie López P - Last Filed: 01/22/17 18:58> - Respiratory Orders Smoking Cessation: Smoking cessation has been advised. For more information, call the [place] [employer] Quit Line at 8-328-TALM-NOW. Certification: Further, I certify that my clinical findings support that this patient is homebound (i.e. absences from home require considerable and taxing effort and are for medical reasons or nondenominational services or infrequently or short duration when for other reasons) because: Attestation: My signature below is to certify that this patient is under my care and that I, or nurse practitioner, or a physician's custody assistant working with me, has a face-to -face encounter with this patient.
[2017-01-22] MEDS: Finasteride 5 MG TABLET PO SCH (10:24)
[2017-01-22] MEDS: metroNIDAZOLE 500 MG TABLET PO SCH (10:25)
--- NOTE | 2017-01-22 21:48 | Electrocardiograph Report ---
[address] [address] Test Date: 2017-01-20 Pat Name: Aleaxnder Anguiano Department: 102 Room: 2A Gender: M Regulatory Intern: Marcos : 1945 Requested By: Jared Travis Order Number: [id number] Reading MD: Manjinder Barnes MD Measurements Intervals [place] Rate: 87 P: 40 SC: 192 QRS: 31 QRSD: 109 T: 10 QT: 371 QTc: 416 Interpretive Statements SINUS RHYTHM BASELINE ARTIFACT Electronically Signed On 01-22-2017 21:46:51 EDT by Manjinder Barnes MD
== END 2017-01-22 10:50 | disposition home or self-care (01) | DRG 305 ==
LOC: EMEROO 17:26 → INTOOBSV 22:26 → 2ANU 22:26
PROVIDERS: ADMIT Internal Medicine; ATTEND Internal Medicine

== ENCOUNTER 2017-04-15 16:07 | Inpatient (IN) ==
[2017-04-15] MEDS ORDERED: Vancomycin (wt based) 1,000 MG VIAL IV ONE (16:18)
[2017-04-15] MEDS ORDERED: Piperacillin/Tazobactam 3.375 GM in Water for inj. (sterile) 20 ML IVP ONE (16:18)
[2017-04-15] MEDS ORDERED: Ondansetron 4 MG/2 ML VIAL IVP ONE (16:20)
[2017-04-15] MEDS ORDERED: 0.9 % Sodium Chloride 1,000 ML IVC ONE (16:20)
[2017-04-15] MEDS ORDERED: Vancomycin 1,500 MG in D5% in Water 250 ML IVPB ONE (16:31)
[2017-04-15 16:35] LABS: Basophils % 0.1 %; Hematocrit 35.3 % (37.5-50.1); Hemoglobin 11.8 g/dL (12.9-16.9); Immature Granulocytes % 0.4 % (0-4); Lymphocytes # 0.6 K/mcL (0.6-4.6); Lymphocytes % 7.7 %; Mean Corpuscular HGB Conc 33.4 g/dL (31.6-35.5); Mean Corpuscular Hemoglobin 30.1 pg (28.0-33.3); Mean Corpuscular Volume 90.1 fL (83.0-100.0); Mean Platelet Volume 10.5 fL (9.4-12.4); Monocytes # 0.4 K/mcL (0.0-1.3); Monocytes % 4.5 %; Neutrophils # 6.9 K/mcL (1.6-8.9); Platelet Count 182 K/mcL (140-400); Red Blood Count 3.92 M/mcL (4.19-5.50); Red Cell Distribution Width 13.2 % (11.5-14.5); Segmented Neutrophils % 87.3 %
--- NOTE | 2017-04-15 16:35 | Emergency Department Note ---
Disposition Clinical Impression: Diabetic foot infection Nausea & vomiting Qualifiers: Vomiting type: unspecified Vomiting Intractability: non-intractable Qualified Code(s): R11.2 - Nausea with vomiting, unspecified Chronic kidney disease Qualifiers: Chronic kidney disease stage: unspecified stage Qualified Code(s): N18.9 - Chronic kidney disease, unspecified Disposition: Admitted As Inpatient Condition: Good Referrals: Raoul Gaona DO [Primary Care Provider] - Forms: ED Satisfaction Letter General Adult HPI - General Chief complaint: ED Nausea/Vomiting/Diarrhea Stated complaint: N/V Time Seen by Provider: 04/15/17 16:14 Source: patient, EMS Limitations: no limitations Nursing Notes Reviewed: Yes Vital Signs Reviewed: Yes - History of Present Illness HPI Narrative: 72-year-old male who has felt generalized fatigue for approximate 4 days. He felt increasingly worsened nausea with vomiting. He has vomited 2-3 times a day. He denies any changes in his bowel movements. He denies having any pain anywhere. He has diabetes with significant peripheral neuropathy and a chronic wound on his foot. He said that he just finished a course of antibiotics earlier in the week due to a foot wound. He is having increased discharge and smell from the chronic diabetic foot wound on the left. He denies any cough or shortness of breath. No chest pain. No difficulty with urination. Pain Scale: 0 Consistency: intermittent Improves with: nothing Worsens with: nothing Associated symptoms: Reports: denies other symptoms Treatments Prior to Arrival: none - Related Data Home Medications Medication Instructions Recorded Confirmed Furosemide [Lasix] 20 mg PO DAILY PRN 12/16/16 03/14/17 Insulin ASPART [Novolog Flexpen] 2 - 10 units SQ TID 12/16/16 03/14/17 Insulin Degludec [Tresiba 80 unit SQ HS 12/16/16 03/14/17 Flextouch U-100] Clopidogrel [Plavix] 75 mg PO DAILY 01/02/17 03/14/17 Docusate [Colace] 200 mg PO DAILY 01/02/17 03/14/17 Finasteride [Proscar] 5 mg PO DAILY 01/02/17 03/14/17 Fluticasone Propionate Nasal 100 mcg NS DAILY PRN 01/02/17 03/14/17 [Flonase] HYDROcodone/Acet 5/325 mg [[place] 1 tab PO Q8H PRN 01/02/17 03/14/17 5-325 mg] Nitroglycerin [Nitrostat] 0.4 mg SL Q5M PRN 01/02/17 03/14/17 Rosuvastatin [Crestor] 40 mg PO HS 01/02/17 03/14/17 Sertraline [Zoloft] 100 mg PO DAILY 01/02/17 03/14/17 carBAMazepine [Tegretol] 200 mg PO Q12H 01/02/17 03/14/17 Isosorbide MONOnitrate (24 HR) 30 mg PO DAILY 01/21/17 03/14/17 [Imdur] Omeprazole [PriLOSEC] 40 mg PO DAILY 01/21/17 03/14/17 Ramipril [Altace] 5 mg PO DAILY 01/21/17 03/14/17 Sotalol [Betapace] 80 mg PO DAILY 01/21/17 03/14/17 Aspirin Enteric Coated [Aspirin EC] 81 mg PO DAILY 03/14/17 03/14/17 Previous Rx's Medication Instructions Recorded Metoprolol XL (24 HR) Succ [Toprol 50 mg PO DAILY #30 01/22/17 Xl] Allergies Allergy/AdvReac Type Severity Reaction Status Date / Time No Known Allergies Allergy Verified 12/28/16 09:44 All systems ED: reviewed and negative except as stated. Constitutional: Reports: fever ENT ED: Denies: throat pain Cardiovascular: Denies: chest pain Respiratory: Denies: cough Gastrointestinal: Reports: nausea, vomiting. Denies: abdominal pain, diarrhea Musculoskeletal: Denies: back pain Integumentary: Denies: rash Past Medical History - Past Medical History Medical history: Reports: cancer, CHF, coronary artery disease, diabetes, hyperlipidemia, hypertension, malignancy, myocardial infarction, renal disease Surgical history: Reports: angioplasty/stent, cataract, coronary bypass (CABG), orthopedic, other Psychiatric history: Reports: depression - Social History Smoking Status: Never smoker Smokeless Tobacco Status: No Alcohol use: Reports: none Drug use: Reports: none Physical Exam - General Limitations: no limitations General appearance: alert, in no apparent distress - Head Head exam: atraumatic - Eye Eye exam: Present: normal appearance, PERRL - ENT ENT exam: normal exam, normal oropharynx - Neck Neck exam: Present: normal inspection - Chest Chest inspection: Present: normal inspection - Respiratory Respiratory exam: Present: normal lung sounds bilaterally. Absent: respiratory distress - Cardiovascular Cardiovascular exam: Present: regular rate, normal rhythm - Abdominal Exam Abdominal exam: Present: soft, Non-Tender - Extremities Exam Extremities exam: Present: other (Left lower extremity has a 1 cm chronic foot wound. Purulence is easily expressed from the wound. There is surrounding erythema on the plantar aspect. No erythema tracking up the leg.) - Neurological Exam Neurological exam: Present: alert, oriented X3, CN II-XII intact - Psychiatric Psychiatric exam: Present: normal affect, normal mood - Skin Skin exam: Present: warm, dry Course Course Narrative: We will empirically start antibiotics for likely foot source of the fever. In addition due to the vomiting we will obtain a CT scan of the abdomen to rule out obstructive process. We will do a sepsis workup with likely admission. He is not tachycardic or hypotensive or experiencing AMS. No current fulfillment of SIRS criteria on triage. Will re-evaluate after labwork is obtained. Spoke with Dr Mandel who agreed to be a actuarial consultant. No acute findings on CT abd/pelvis. No bony erosion/gas seen on foot radiograph. CXR negative. Labwork otherwise stable/at baseline. Have given antibiotics and will admit for podiatry consultation/management of N/V, and IV abx (failure of outpatient tx). Spoke with hospitalist who requested a CT of the foot to r/o necrotizing fascitis. Will accept patient. Vital Signs Temperature 100.7 F H 04/15/17 16:09 Pulse Rate 87 04/15/17 16:09 Respiratory Rate 14 04/15/17 16:09 Blood Pressure 184/84 04/15/17 16:09 O2 Sat by Pulse Oximetry 95 04/15/17 16:09 Temperature 100.5 F H 04/15/17 18:15 Pulse Rate 77 04/15/17 18:05 Respiratory Rate 20 04/15/17 18:05 Blood Pressure 153/73 04/15/17 18:05 O2 Sat by Pulse Oximetry 100 04/15/17 18:05 Oxygen Delivery Oxygen Delivery Nasal Cannula Medical Decision Making - Medical Records Medical records reviewed: Yes I reviewed the patient's medical records. - Lab Data Lab results reviewed: Yes I reviewed the patient's lab results. Result diagrams: 04/15/17 16:15 12/10/17 16:15 Lab Results 04/15/17 04/15/17 04/15/17 Range/Units 16:15 16:15 16:15 WBC 7.8 (4.3-11.1) K/mcL RBC 3.92 L (4.19-5.50) M/mcL Hgb 11.8 L (12.9-16.9) g/dL Hct 35.3 L (37.5-50.1) % MCV 90.1 (83.0-100.0) fL MCH 30.1 (28.0-33.3) pg MCHC 33.4 (31.6-35.5) g/dL RDW 13.2 (11.5-14.5) % Plt Count 182 (140-400) K/mcL MPV 10.5 (9.4-12.4) fL Immature Gran % 0.4 (0-4) % Seg Neutrophils % 87.3 % Lymphocytes % 7.7 % Monocytes % 4.5 % Eosinophils % 0.0 % Basophils % 0.1 % Neutrophils # 6.9 (1.6-8.9) K/mcL Lymphocytes # 0.6 (0.6-4.6) K/mcL Monocytes # 0.4 (0.0-1.3) K/mcL Eosinophils # 0.0 (0.0-0.6) K/mcL Basophils # 0.0 (0.0-0.2) K/mcL PT 11.6 (9.4-12.1) Seconds INR 1.1 APTT 26.0 (26.0-36.0) Seconds Sodium 139 (136-145) mEq/L Potassium 4.3 (3.5-4.5) mEq/L Chloride 104 (98-109) mEq/L Carbon Dioxide 27 (19-29) mEq/L BUN 32 H (8-26) mg/dL Creatinine 2.21 H (0.72-1.25) mg/dL Est GFR ( Amer) 36 L (> 60) Est GFR (Non-Af Amer) 30 L (> 60) BUN/Creatinine Ratio 14 (6-26) Glucose 172 H (70-99) mg/dL Calculated Osmolality 299 (280-300) Lactic Acid (0.5-2.2) mmol/L Calcium 9.7 (8.6-10.8) mg/dL Phosphorus 2.2 L (2.3-4.7) mg/dL Magnesium 1.6 (1.6-2.6) mg/dL Total Bilirubin 0.3 (0.2-1.2) mg/dL Direct Bilirubin 0.2 (0.0-0.5) mg/dL Indirect Bilirubin 0.1 (0.0-1.2) mg/dL AST 12 (5-34) Units/L ALT 13 (0-55) Units/L Alkaline Phosphatase 87 (38-126) Units/L Troponin I (0-0.03) ng/mL B-Natriuretic Peptide (0-100) pg/mL Serum Total Protein 7.3 (6.0-8.3) g/dL Albumin 2.4 L (3.5-5.0) g/dL Globulin 4.9 H (2.4-3.5) g/dL Albumin/Globulin Ratio 0.5 L (1.1-2.2) Urine Color (Yellow) Urine Clarity (Clear) Urine pH (5.0-8.0) pH Units Ur Specific [place] (1.010-1.025) Urine Protein (Neg-Trace) mg/dL Urine Glucose (UA) (Normal) mg/dL Urine Ketones (Negative) mg/dL Urine Blood (Negative) Urine Nitrite (Negative) Urine Bilirubin (Negative) Urine Urobilinogen (Normal) mg/dL Ur Leukocyte Esterase (Negative) Urine Microscopic RBC (0-3) per hpf Urine Microscopic WBC (0-3) per hpf Ur Squamous Epith Cells (None-Few) per lpf Urine Bacteria (None-Few) per hpf Hyaline Casts (None-Few) per lpf Ur Culture Indicated? (NO) 04/15/17 04/15/17 04/15/17 Range/Units 16:15 16:15 16:15 WBC (4.3-11.1) K/mcL RBC (4.19-5.50) M/mcL Hgb (12.9-16.9) g/dL Hct (37.5-50.1) % MCV (83.0-100.0) fL MCH (28.0-33.3) pg MCHC (31.6-35.5) g/dL RDW (11.5-14.5) % Plt Count (140-400) K/mcL MPV (9.4-12.4) fL Immature Gran % (0-4) % Seg Neutrophils % % Lymphocytes % % Monocytes % % Eosinophils % % Basophils % % Neutrophils # (1.6-8.9) K/mcL Lymphocytes # (0.6-4.6) K/mcL Monocytes # (0.0-1.3) K/mcL Eosinophils # (0.0-0.6) K/mcL Basophils # (0.0-0.2) K/mcL PT (9.4-12.1) Seconds INR APTT (26.0-36.0) Seconds Sodium (136-145) mEq/L Potassium (3.5-4.5) mEq/L Chloride (98-109) mEq/L Carbon Dioxide (19-29) mEq/L BUN (8-26) mg/dL Creatinine (0.72-1.25) mg/dL Est GFR ( Amer) (> 60) Est GFR (Non-Af Amer) (> 60) BUN/Creatinine Ratio (6-26) Glucose (70-99) mg/dL Calculated Osmolality (280-300) Lactic Acid 1.2 (0.5-2.2) mmol/L Calcium (8.6-10.8) mg/dL Phosphorus (2.3-4.7) mg/dL Magnesium (1.6-2.6) mg/dL Total Bilirubin (0.2-1.2) mg/dL Direct Bilirubin (0.0-0.5) mg/dL Indirect Bilirubin (0.0-1.2) mg/dL AST (5-34) Units/L ALT (0-55) Units/L Alkaline Phosphatase (38-126) Units/L Troponin I 0.03 (0-0.03) ng/mL B-Natriuretic Peptide 193 H (0-100) pg/mL Serum Total Protein (6.0-8.3) g/dL Albumin (3.5-5.0) g/dL Globulin (2.4-3.5) g/dL Albumin/Globulin Ratio (1.1-2.2) Urine Color (Yellow) Urine Clarity (Clear) Urine pH (5.0-8.0) pH Units Ur Specific [place] (1.010-1.025) Urine Protein (Neg-Trace) mg/dL Urine Glucose (UA) (Normal) mg/dL Urine Ketones (Negative) mg/dL Urine Blood (Negative) Urine Nitrite (Negative) Urine Bilirubin (Negative) Urine Urobilinogen (Normal) mg/dL Ur Leukocyte Esterase (Negative) Urine Microscopic RBC (0-3) per hpf Urine Microscopic WBC (0-3) per hpf Ur Squamous Epith Cells (None-Few) per lpf Urine Bacteria (None-Few) per hpf Hyaline Casts (None-Few) per lpf Ur Culture Indicated? (NO) 04/15/17 Range/Units 17:55 WBC (4.3-11.1) K/mcL RBC (4.19-5.50) M/mcL Hgb (12.9-16.9) g/dL Hct (37.5-50.1) % MCV (83.0-100.0) fL MCH (28.0-33.3) pg MCHC (31.6-35.5) g/dL RDW (11.5-14.5) % Plt Count (140-400) K/mcL MPV (9.4-12.4) fL Immature Gran % (0-4) % Seg Neutrophils % % Lymphocytes % % Monocytes % % Eosinophils % % Basophils % % Neutrophils # (1.6-8.9) K/mcL Lymphocytes # (0.6-4.6) K/mcL Monocytes # (0.0-1.3) K/mcL Eosinophils # (0.0-0.6) K/mcL Basophils # (0.0-0.2) K/mcL PT (9.4-12.1) Seconds INR APTT (26.0-36.0) Seconds Sodium (136-145) mEq/L Potassium (3.5-4.5) mEq/L Chloride (98-109) mEq/L Carbon Dioxide (19-29) mEq/L BUN (8-26) mg/dL Creatinine (0.72-1.25) mg/dL Est GFR ( Amer) (> 60) Est GFR (Non-Af Amer) (> 60) BUN/Creatinine Ratio (6-26) Glucose (70-99) mg/dL Calculated Osmolality (280-300) Lactic Acid (0.5-2.2) mmol/L Calcium (8.6-10.8) mg/dL Phosphorus (2.3-4.7) mg/dL Magnesium (1.6-2.6) mg/dL Total Bilirubin (0.2-1.2) mg/dL Direct Bilirubin (0.0-0.5) mg/dL Indirect Bilirubin (0.0-1.2) mg/dL AST (5-34) Units/L ALT (0-55) Units/L Alkaline Phosphatase (38-126) Units/L Troponin I (0-0.03) ng/mL B-Natriuretic Peptide (0-100) pg/mL Serum Total Protein (6.0-8.3) g/dL Albumin (3.5-5.0) g/dL Globulin (2.4-3.5) g/dL Albumin/Globulin Ratio (1.1-2.2) Urine Color Yellow (Yellow) Urine Clarity Cloudy A (Clear) Urine pH 6.5 (5.0-8.0) pH Units Ur Specific [place] 1.027 H (1.010-1.025) Urine Protein >=1000 H (Neg-Trace) mg/dL Urine Glucose (UA) 500 H (Normal) mg/dL Urine Ketones Negative (Negative) mg/dL Urine Blood Moderate H (Negative) Urine Nitrite Negative (Negative) Urine Bilirubin Negative (Negative) Urine Urobilinogen Normal (Normal) mg/dL Ur Leukocyte Esterase Negative (Negative) Urine Microscopic RBC 0-3 (0-3) per hpf Urine Microscopic WBC 5-15 H (0-3) per hpf Ur Squamous Epith Cells Many H (None-Few) per lpf Urine Bacteria None Seen (None-Few) per hpf Hyaline Casts Few (None-Few) per lpf Ur Culture Indicated? NO (NO) - Radiology Data Radiology results reviewed: Yes I reviewed the patient's radiology results. - EKG Data EKG #1 EKG attestation: Yes I reviewed and interpreted this EKG. EKG shows normal: sinus rhythm Rate: normal Rhythm: NSR [place]/QRS: normal Interpretation: no acute changes Attestation Statement - Attestation Attestation: I examined this patient and my medical decision-making was reviewed with the Resident Physician. I agree with the documented findings, disposition and treatment plan as described except to the extent set forth below. Findings of foot ulcer. No evidence of tracking gas. There is a small amount of air around ulcer. Podiatry was consult.. No recommendations at this time. Continue antibiotic therapy including vancomycin and Zosyn. Cultures were sent. Patient does not meet sepsis criteria or sirs criteria at this time. CT scan of the abdomen and pelvis shows no acute findings. Patient be admitted to the hospitalist service for treatment of infected foot ulcer with podiatry consultation.
[2017-04-15 16:40] LABS: INR 1.1; Prothrombin Time 11.6 Seconds (9.4-12.1)
[2017-04-15 16:47] LABS: Albumin 2.4 g/dL (3.5-5.0); Albumin/Globulin Ratio 0.5 (1.1-2.2); Bilirubin,Direct 0.2 mg/dL (0.0-0.5); Bilirubin,Indirect 0.1 mg/dL (0.0-1.2); Bilirubin,Total 0.3 mg/dL (0.2-1.2); Calcium 9.7 mg/dL (8.6-10.8); Globulin 4.9 g/dL (2.4-3.5); Magnesium 1.6 mg/dL (1.6-2.6); Phosphorous 2.2 mg/dL (2.3-4.7); Potassium 4.3 mEq/L (3.5-4.5); Total Protein 7.3 g/dL (6.0-8.3)
[2017-04-15 18:03] LABS: Bilirubin,Urine Negative (Negative); Blood,Urine Moderate (Negative); Clarity,Urine Cloudy (Clear); Color,Urine Yellow (Yellow); Glucose,Urine (UA) 500 mg/dL (Normal); Ketones,Urine Negative (Negative); Leukocyte Esterase,Urine Negative (Negative); Nitrite,Urine Negative (Negative); PH,Urine 6.5 pH Units (5.0-8.0); Protein,Urine >=1000 mg/dL (Neg-Trace); Specific Gravity,Urine 1.027 (1.010-1.025); Urobilinogen,Urine Normal (Normal)
[2017-04-15 18:04] LABS: Bacteria,Urine None Seen per hpf (None-Few); Hyaline Casts,Urine Few per lpf (None-Few); Squamous Epithelial Cell,Urine Many per lpf (None-Few)
[2017-04-15 18:13] LABS: RBC,Urine 0-3 per hpf (0-3)
[2017-04-15] MEDS ORDERED: Naloxone 0.4 MG/ML INJ IVP PRN (19:52)
--- NOTE | 2017-04-15 20:49 | Internal Med History&Physical ---
Date of Encounter: 04/15/17 Time of Encounter: 20:41 Assessment and Plan (1) Diabetic foot ulcer Current visit: Yes Status: Acute 1 she has been receiving treatment for nonhealing foot ulcer over the past 4 days he has been experiencing fatigue nausea vomiting as well as increase in drainage which has been foul-smelling. CT of foot is concerning for osteomyelitis and gaseous gangrene. I did consult podiatry Dr. Mandel who will take patient to surgery tomorrow after cleared by cardiology I did consult cardiology and spoke with Dr. Richardson concerning patient's extensive cardiac history as well as he is presently on sotalol. I did order cardiac echo as well as trend troponins-patient states he had a recent stress test with Dr. Montgomery however unable to locate the results Blood cultures and wound cultures have been obtained we will initiate on clindamycin as well as vancomycin Qualifiers: Diabetic foot ulcer location: other Diabetes mellitus type: type 2 Laterality: left Non-pressure ulcer stage: with fat layer exposed Qualified Code(s): E11.621 - Type 2 diabetes mellitus with foot ulcer; L97.522 - Non- pressure chronic ulcer of other part of left foot with fat layer exposed; L97.522 - Non-pressure chronic ulcer of other part of left foot with fat layer exposed; L97.522 - Non-pressure chronic ulcer of other part of left foot with fat layer exposed; L97.522 - Non-pressure chronic ulcer of other part of left foot with fat layer exposed (2) CAD (coronary artery disease) Current visit: No Status: Chronic 1 presently not experience any chest pain patient has a history of CABG as well as stent placement. Continue with aspirin and Plavix statin jayde and nitrates Qualifiers: Coronary Disease-Associated Artery/Lesion type: [place] artery [place] vs. transplanted heart: [place] heart Associated angina: without angina Qualified Code(s): I25.10 - Atherosclerotic heart disease of [place] coronary artery without angina pectoris (3) CKD (chronic kidney disease) Current visit: Yes Status: Chronic Presently creatinine is 2.2 on appears patient's creatinine baselines around 2 we will continue to monitor Avoid nephrotoxins Monitor intake and output daily weights Monitor electrolytes Avoid nephrotoxins and renally dose antibiotics Qualifiers: Chronic kidney disease stage: stage 3 (moderate) Qualified Code(s): N18.9 - Chronic kidney disease, unspecified (4) DVT prophylaxis Current visit: No Status: Acute We will initiate on heparin subcutaneous Internal Medicine - H&P: HPI Chief complaint: Fatigue Admitted From: Emergency Dept Plans for Post Hospital Care: Home History of present illness: Mr. Anguiano is a 72 year old male past medical history of diabetes hypertension [place] CAD heart catheter 4 -X9 stents most recently completed in 2012-CABG in 2006 CK D3 chronic diabetic foot ulcer. According to the patient for the past 4 days he has been experiencing generalized fatigue weakness as well as increasing nausea and vomiting. He also has a chronic left foot diabetic ulcer which he has received treatment from wound clinic. He has been experiencing increased discharge from the wound as well as foul odor. Denies any fevers or chills abdominal pain or chest pain. He presented to the ER with the above complaints. According to ER records and lab work to not show any leukocytosis creatinine was elevated 2.2 on however this appears to be around his baseline. CT of L foot : Soft tissue ulceration and prominent subcutaneous gas throughout the He has been admitted for further workup and evaluation. Soft tissues surrounding the 3rd and 4th metatarsophalangeal joints and involving the soft tissues of the 3rd toe with focal erosion involving the base of the proximal 3rd phalanx most compatible with osteomyelitis given the adjacent soft tissue changes. blood cultures and wound cultures were obtained and he was initiated on empiric antibiotic coverage. He denies any pain or discomfort Left foot is edematous with redness to plantar aspect of L foot with an approx 0.5 cm open wound with foul smelling serous drainage. He has palpable pulse I did review CT findings with DR Funes who will take patient to surgery tomorrow. DT patient extensive cardiac history I will consult cardiology for surgery clearance I reviewed the case with DR Dove who agrees with plan 7 Past Med Surg Social Fam HX - Past Medical History Medical history: cancer, CHF, coronary artery disease, diabetes, hyperlipidemia , hypertension, malignancy, myocardial infarction, renal disease Psychiatric history: depression - Past Surgical History Surgical History: angioplasty/stent, cataract, coronary bypass (CABG), orthopedic, other - Social History Smoking Status: Never smoker Smokeless Tobacco Status: No Alcohol use: none Drug use: none - Family History Father Living Status: Cause of : heart attack Hx Family Cardiac Disorders: Yes Mother Living Status: Cause of : liver cancer Hx Family Cardiac Disorders: Yes Hx Family Cancer: Yes (liver cancer) Internal Medicine - H&P: Meds Furosemide [Lasix] 20 mg PO DAILY PRN 12/16/16 [History] Insulin ASPART [Novolog Flexpen] 2 - 10 units SQ TID 12/16/16 [History] Insulin Degludec [Tresiba Flextouch U-100] 80 unit SQ HS 12/16/16 [History] Clopidogrel [Plavix] 75 mg PO DAILY 01/02/17 [History] Docusate [Colace] 200 mg PO DAILY 01/02/17 [History] Finasteride [Proscar] 5 mg PO DAILY 01/02/17 [History] Fluticasone Propionate Nasal [Flonase] 100 mcg NS DAILY PRN 01/02/17 [History] HYDROcodone/Acet 5/325 mg [[place] 5-325 mg] 1 tab PO Q8H PRN 01/02/17 [History] Nitroglycerin [Nitrostat] 0.4 mg SL Q5M PRN 01/02/17 [History] Rosuvastatin [Crestor] 40 mg PO HS 01/02/17 [History] Sertraline [Zoloft] 100 mg PO DAILY 01/02/17 [History] carBAMazepine [Tegretol] 200 mg PO Q12H 01/02/17 [History] Isosorbide MONOnitrate (24 HR) [Imdur] 30 mg PO DAILY 01/21/17 [History] Omeprazole [PriLOSEC] 40 mg PO DAILY 01/21/17 [History] Ramipril [Altace] 5 mg PO DAILY 01/21/17 [History] Sotalol [Betapace] 80 mg PO DAILY 01/21/17 [History] Metoprolol XL (24 HR) Succ [Toprol Xl] 50 mg PO DAILY #30 01/22/17 [Rx] Aspirin Enteric Coated [Aspirin EC] 81 mg PO DAILY 03/14/17 [History] 3 Allergy/AdvReac Type Severity Reaction Status Date / Time No Known Allergies Allergy Verified 12/28/16 09:44 All Systems PM: A 10-system review of systems was performed and is negative for pertinent findings except as documented above in the HPI. - Constitutional Constitutional: fatigue, weakness, no chills, no fever(s), no night sweats - EENT Eyes: no change in vision, no discharge, no pain, no photophobia Nose, mouth and throat: no dysphagia, no nasal discharge, no neck pain, no sore throat - Cardiovascular Cardiovascular ROS IM: no chest pain, no diaphoresis, no dyspnea, no lightheadedness, no palpitations, no syncope - Respiratory Respiratory: no cough, no dyspnea, no wheezing, no excessive phlegm production - Gastrointestinal Gastrointestinal: nausea, no abdominal pain, no diarrhea, no hematemesis, no hematochezia, no melena, no vomiting - Musculoskeletal Musculoskeletal ROS IM: no numbness, no tingling - Integumentary Integumentary IM: non-healing lesions, no rash, no unusual bruising Additional comments: Foul-smelling drainage - Neurological Neurological ROS: no confusion, no convulsions, no focal weakness, no numbness, no tingling, no tremor(s) - Hematologic/Lymphatic Hematologic/Lymphatic: no easy bruising - Constitutional Vitals: Temp Pulse Resp BP Pulse Ox 98.8 F 69 14 148/80 99 04/15/17 19:53 04/15/17 19:53 04/15/17 19:53 04/15/17 19:53 04/15/17 19:53 General appearance: Present: A&O X 3, answers questions appropriately - Head Head exam: Present: atraumatic, normocephalic - Eye Eye exam: Present: PERRL, conjuntiva pink, sclera anicteric Pupils: Present: PERRL - Respiratory Respiratory exam: Present: CTAB. Absent: accessory muscle use, rales, rhonchi, wheezes - Cardiovascular Cardiovascular exam: Present: RRR, +S1, +S2. Absent: diastolic murmur, gallop, rubs, systolic murmur - GI/Abdominal GI/Abdominal exam: Present: normal bowel sounds, soft, no peritoneal signs. Absent: distended, tenderness - Extremities Exam Extremities exam: Present: warm, radial pulses palpable and symmetrical. Absent : calf tenderness, cyanotic, pedal edema - Expanded Lower Extremities Exam Foot/Toe exam: Present: erythema, swelling, tenderness (Ulcer to plantar aspect of left foot approximately 0.5 cm in diameter with foul-smelling serous drainage ) - Neurological Exam Neurological exam: Present: CN II-XII intact, oriented X3, no focal deficits. Absent: pronater drift, facial droop, speech deficit Internal Med - H&P Results - Labs CBC & Chem 7: 04/15/17 16:15 04/15/17 16:15 - EKG Data EKG shows normal: sinus rhythm Rate: tachycardia - EKG Data Prior EKG available for review: no - Diagnostic Studies Other Images Additional comments: Chest X-Ray 04/15/17 16:17 IMPRESSION: Probable atelectasis at the left lung base. No acute abnormality otherwise. Limited low volume portable exam D/ / Gabriel Hamilton / Gabriel Hamilton Interpreting Provider: Gabriel Hamilton Foot X-Ray 04/15/17 16:18 IMPRESSION: Soft tissue swelling and soft tissue air density as described There are no bone findings to suggest osteomyelitis at this time D/ / Gabriel Hamilton / Gabriel Hamilton Interpreting Provider: Gabriel Hamilton Abdomen/Pelvis CT 04/15/17 16:19 IMPRESSION: Cholelithiasis. Right nephrolithiasis. Prostate gland enlargement. There is diffuse wall thickening suspected of the urinary bladder abdomen possibly due to lack of complete distention. Correlation for chronic outlet obstruction is recommended. D/ / Gabrielle Taylor Cha, MD / Gabrielle Taylor Cha, MD Interpreting Provider: Gabrielle Taylor Cha, MD Foot CT 04/15/17 18:13 IMPRESSION: 1. Soft tissue ulceration and prominent subcutaneous gas throughout the soft tissues surrounding the 3rd and 4th metatarsophalangeal joints and involving the soft tissues of the 3rd toe with focal erosion involving the base of the proximal 3rd phalanx most compatible with osteomyelitis given the adjacent soft tissue changes. No organized drainable fluid collection identified within limits of this noncontrast exam. 2. Pronounced subcutaneous edema throughout the soft tissues. Recommend clinical correlation for cellulitis. 3. 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 D/ / Yordy Lo MD / Yordy Lo MD Interpreting Provider: Yordy Lo MD
[2017-04-15] MEDS ORDERED: *HR* Dextrose 50 % in Water (Syg) 50 ML SYRINGE IVP PRN (21:15)
[2017-04-15] MEDS ORDERED: Dextrose Gel 15 GM PO PRN ×2 (21:15)
[2017-04-15] MEDS ORDERED: D5% in Water 1,000 ML IVC PRN (21:15)
[2017-04-15] MEDS ORDERED: 0.9 % Sodium Chloride 1,000 ML IVC SCH (21:30)
[2017-04-15] MEDS ORDERED: 0.9 % Sodium Chloride 1,000 ML ONE (21:47)
[2017-04-15] MEDS ORDERED: Nitroglycerin 0.4 MG TAB.SUBL SL PRN (23:35)
[2017-04-16] MEDS: Insulin LISPRO 300 UNITS/3 ML VIAL SQ SCH ×4 (00:13→18:08)
[2017-04-16] MEDS: Clindamycin 900 MG/50 ML 900 MG/50 ML IV.SOLN IVPB SCH ×3 (00:28→17:16)
[2017-04-16] MEDS ORDERED: Fluticasone Propionate Nasal 50 MCG/SPRAY BOTTLE NS PRN (00:32)
[2017-04-16] MEDS: carBAMazepine 200 MG TABLET PO SCH ×2 (00:34→14:50)
[2017-04-16 03:13] LABS: Basophils % 0.1 %; Hemoglobin 10.4 g/dL (12.9-16.9); Immature Granulocytes % 0.3 % (0-4); Immature Platelets 3.4 % (1.1-6.1); Lymphocytes # 1.8 K/mcL (0.6-4.6); Lymphocytes % 15.9 %; Mean Corpuscular HGB Conc 33.5 g/dL (31.6-35.5); Mean Corpuscular Hemoglobin 30.1 pg (28.0-33.3); Mean Corpuscular Volume 89.9 fL (83.0-100.0); Mean Platelet Volume 10.1 fL (9.4-12.4); Monocytes # 1.1 K/mcL (0.0-1.3); Monocytes % 9.6 %; Neutrophils # 8.5 K/mcL (1.6-8.9); Platelet Count 168 K/mcL (140-400); Red Blood Count 3.45 M/mcL (4.19-5.50); Red Cell Distribution Width 13.1 % (11.5-14.5); Segmented Neutrophils % 74.1 %
[2017-04-16 03:26] LABS: Calcium 8.3 mg/dL (8.6-10.8); Potassium 3.7 mEq/L (3.5-4.5)
[2017-04-16] MEDS ORDERED: *HR* Heparin 5,000 UNIT/ML VIAL SQ SCH (06:00)
[2017-04-16] MEDS: Aspirin Enteric Coated 81 MG Tablet PO SCH (07:47)
[2017-04-16] MEDS: Lisinopril 20 MG TABLET PO SCH (07:47)
[2017-04-16] MEDS: Metoprolol XL (24 HR) Succ 25 MG TAB.ER.24H PO SCH (07:47)
[2017-04-16] MEDS: Finasteride 5 MG TABLET PO SCH (07:47)
[2017-04-16] MEDS: Isosorbide MONOnitrate (24 HR) 30 MG TAB.ER.24H PO SCH (07:47)
[2017-04-16] MEDS ORDERED: Aminoglycoside Consult 1 EACH MC ONE (08:35)
--- NOTE | 2017-04-16 08:40 | Cardiology Consult Note ---
Date of Encounter: 04/16/17 Time of Encounter: 08:54 Assessment and Plan (1) Preop cardiovascular exam Current Visit: Yes Status: Acute Preoperative exam in patient with cardiac history and mildly elevated trop of 0.05, Moderate Risk The patient is admitted for worsened diabetic foot ulcer Hx of WI s/p 4-6 Stents last in 2012, CABG 2006 Nuclear stress 2007 demonstrated LVEF 50%, Gated EF 54% with mild aortic stenosis, mild basal/inferior akinesis with no ischemic changes Repeat TTE (04/16/17) demonstrates LVEF 40% with mild global systolic dysfunction EKG 04/15 shows NSR with occasional PVCs without obvious ST-T changes Patient on ASA, Plavix, Imdur, BB, Statin, Sotalol RCRI 2, patient at 6.6% risk for serious cardiac complications We will obtain previous cardiology records from [facility], which will be helpful in risk stratifying this patient Moderate risk patient, absent active symptoms, preoperative testing is unlikely to modify the patients surgical risk at this time Discussion w patient/family: The assessment and plan as outlined above was discussed with the patient and/or family members who expressed understanding and agreement. All questions were answered. Thank you for involving us in the care of your patient. Please call with any questions. History of Present Illness Consult date: 04/15/17 Requesting physician: Lynda Ng Consult reason: Presurgical clearance Chief complaint: Fatigue, nausea and vomiting History of present illness: Mr. Anguiano is a 72 year old male with history of DM, HTN, WI s/p stents most recently 2012, CABG 2006 and diabetic foot ulcer who presents to the ED due to fatigue, nausea and vomiting, and increased purulent discharge per diabetic foot ulcer. Cardiology was consulted for preoperative clearance due to extensive cardiac history. The patient reports that he first developed the diabetic foot ulcer in November following a trip to [facility], and it has gradually worsened. Recently he began to notice increased discharge with foul odor, and has become more fatigued. He does admit that he is chronically fatigued and weak. He states that he finds physical activity to be very strenuous, and is unable to do much more than complete ADLs like using the restroom, showering, and preparing food. He says that he is unable to walk a city block, or complete more than one flight of stairs. He does deny chest pains, SOB at rest, syncope, visual changes. The patient previously followed with Dr. Montgomery at [facility], and there are no records available to us at this time. Record of previous nuclear stress in 2007 shows LVEF 50%, negative for ischemic changes, basal/inferior akinesis. Troponin on arrival was 0.05, which appears consistent with previous levels of elevation from prior admissions. Serum creatinine upon admission was 2.21 and has since droped to 1.93, which appears consistent with baseline. Past Med Surg Social Fam HX - Past Medical History Medical history: cancer, CHF, coronary artery disease, diabetes, hyperlipidemia , hypertension, malignancy, myocardial infarction, renal disease Psychiatric history: depression - Past Surgical History Surgical History: angioplasty/stent, cataract, coronary bypass (CABG), orthopedic, other - Social History Smoking Status: Never smoker Smokeless Tobacco Status: No Alcohol use: none Drug use: none - Family History Father Living Status: Cause of : heart attack Hx Family Cardiac Disorders: Yes Mother Living Status: Cause of : liver cancer Hx Family Cardiac Disorders: Yes Hx Family Cancer: Yes (liver cancer) Medications and Allergies Furosemide [Lasix] 20 mg PO DAILY PRN 12/16/16 [History] Insulin ASPART [Novolog Flexpen] 2 - 10 units SQ TID 12/16/16 [History] Insulin Degludec [Tresiba Flextouch U-100] 80 unit SQ HS 12/16/16 [History] Clopidogrel [Plavix] 75 mg PO DAILY 01/02/17 [History] Docusate [Colace] 200 mg PO DAILY 01/02/17 [History] Finasteride [Proscar] 5 mg PO DAILY 01/02/17 [History] Fluticasone Propionate Nasal [Flonase] 100 mcg NS DAILY PRN 01/02/17 [History] Nitroglycerin [Nitrostat] 0.4 mg SL Q5M PRN 01/02/17 [History] Rosuvastatin [Crestor] 40 mg PO HS 01/02/17 [History] Sertraline [Zoloft] 100 mg PO DAILY 01/02/17 [History] carBAMazepine [Tegretol] 200 mg PO Q12H 01/02/17 [History] Isosorbide MONOnitrate (24 HR) [Imdur] 30 mg PO DAILY 01/21/17 [History] Omeprazole [PriLOSEC] 40 mg PO DAILY 01/21/17 [History] Ramipril [Altace] 5 mg PO DAILY 01/21/17 [History] Sotalol [Betapace] 80 mg PO DAILY 01/21/17 [History] Metoprolol XL (24 HR) Succ [Toprol Xl] 50 mg PO DAILY #30 01/22/17 [Rx] Aspirin Enteric Coated [Aspirin EC] 81 mg PO DAILY 03/14/17 [History] Glimepiride [Amaryl] 4 mg PO BID 04/16/17 [History] Saxagliptin HCl [Onglyza] 5 mg PO DAILY 04/16/17 [History] 3 Allergy/AdvReac Type Severity Reaction Status Date / Time No Known Allergies Allergy Verified 12/28/16 09:44 - Constitutional Constitutional: fatigue, fever(s), lethargy, weakness, no anorexia, no chills, no frequent falls, no night sweats - EENT Eyes: no blurred vision, no loss of vision - Cardiovascular Cardiovascular: dyspnea on exertion, leg edema, no chest pain at rest, no chest pain with exertion, no claudication, no dyspnea at rest, no irregular heart rhythm, no palpitations, no syncope - Respiratory Respiratory: no cough, no hemoptysis - Gastrointestinal Gastrointestinal: nausea, no abdominal pain, no diarrhea, no melena - Genitourinary Genitourinary: no dysuria, no hematuria - Musculoskeletal Musculoskeletal: muscle weakness, no abnormal gait - Integumentary Integumentary: no erythema - Neurological Neurological: no abnormal speech, no focal weakness, no loss of vision, no syncope - Psychiatric Psychiatric: depression Physical Examination Vital Signs, Last 4 Hours Temp Pulse Resp BP Pulse Ox 04/16/17 07:27 99.2 F 66 15 166/61 98 General: Conversant, No Apparent Distress HEENT: Atraumatic, Normocephaly, Mucus Membranes Moist Neck: No JVD, Normal carotid pulses Cardiac: Reg Rate and Rhythm, Normal S1 and S2, Other (2/6 Systolic murmur is noted) Lungs: Normal Breath Sounds, No Wheeze, Rales, Rhonchi Neuro: Alert and responsive, No focal deficits noted Abdomen: Soft, Non-Tender Skin: No rashes noted on visualized skin Musculoskeletal: No Chest Wall Tenderness, Other (Muscle atrophy of thenar eminence is noted b/l) Extremities: No Clubbing, No Cyanosis, No Edema, Normal Pulses, Other (L. Foot is wrapped, foul odor present) Results 04/16/17 03:03 04/16/17 03:03 Lab Results 04/15/17 04/16/17 04/16/17 21:29 03:03 03:03 WBC 11.5 H Hgb 10.4 L Hct 31.0 L Plt Count 168 Sodium 140 Potassium 3.7 Chloride 108 Carbon Dioxide 23 BUN 29 H Creatinine 1.93 H Glucose 97 Calcium 8.3 L Troponin I 0.04 H* 04/16/17 03:03 WBC Hgb Hct Plt Count Sodium Potassium Chloride Carbon Dioxide BUN Creatinine Glucose Calcium Troponin I 0.05 H* Consult Discharge Plan - Plan Referrals: Raoul Gaona DO [Primary Care Provider] -
[2017-04-16] MEDS ORDERED: Vancomycin 1,250 MG in D5% in Water 250 ML IVPB SCH ×2 (09:00→18:00)
[2017-04-16 09:08] LABS: Acinetobacter baumannii by PCR Not Detected (Not Detect); Candida albicans by PCR Not Detected (Not Detect); Candida glabrata by PCR Not Detected (Not Detect); Candida krusei by PCR Not Detected (Not Detect); Candida parapsilosis by PCR Not Detected (Not Detect); Candida tropicalis by PCR Not Detected (Not Detect); Enterococcus by PCR Not Detected (Not Detect); Escherichia coli by PCR Not Detected (Not Detect); Klebsiella oxytoca by PCR Not Detected (Not Detect); Klebsiella pneumoniae by PCR Not Detected (Not Detect); Pseudomonas aeruginosa by PCR Not Detected (Not Detect); Serratia marcescens by PCR Not Detected (Not Detect); Staphylococcus aureus by PCR Not Detected (Not Detect); Streptococcus agalactiae(B)PCR ***DETECTED*** (Not Detect); Streptococcus by PCR ***DETECTED*** (Not Detect); Streptococcus pneumoniae PCR Not Detected (Not Detect); Streptococcus pyogenes (A) PCR Not Detected (Not Detect)
[2017-04-16] MEDS: Lactobacillus 1 EACH CAP.SPRINK PO SCH (09:32)
[2017-04-16 11:33] LABS: Thyroid Stimulating Hormone 0.69 mcIU/mL (0.350-4.840)
[2017-04-16] MEDS: Piperacillin/Tazobactam 3.375 GM/200 ML BAG IVPB SCH ×2 (11:38→18:10)
--- NOTE | 2017-04-16 14:52 | Anesthesia Evaluation PreOp ---
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 History: Denies Any Significant HX Other Medical History: Renal (stage 3 CKD), Diabetes Type II Anesthesia History: No Prior Anesthetic Complications, Past Anesthesia (CABG, ortho, stents, cataracts) Alcohol Use: none Drug use: none Medications and Allergies Furosemide [Lasix] 20 mg PO DAILY PRN 12/16/16 [History] Insulin ASPART [Novolog Flexpen] 2 - 10 units SQ TID 12/16/16 [History] Insulin Degludec [Tresiba Flextouch U-100] 80 unit SQ HS 12/16/16 [History] Clopidogrel [Plavix] 75 mg PO DAILY 01/02/17 [History] Docusate [Colace] 200 mg PO DAILY 01/02/17 [History] Finasteride [Proscar] 5 mg PO DAILY 01/02/17 [History] Fluticasone Propionate Nasal [Flonase] 100 mcg NS DAILY PRN 01/02/17 [History] Nitroglycerin [Nitrostat] 0.4 mg SL Q5M PRN 01/02/17 [History] Rosuvastatin [Crestor] 40 mg PO HS 01/02/17 [History] Sertraline [Zoloft] 100 mg PO DAILY 01/02/17 [History] carBAMazepine [Tegretol] 200 mg PO Q12H 01/02/17 [History] Isosorbide MONOnitrate (24 HR) [Imdur] 30 mg PO DAILY 01/21/17 [History] Omeprazole [PriLOSEC] 40 mg PO DAILY 01/21/17 [History] Ramipril [Altace] 5 mg PO DAILY 01/21/17 [History] Sotalol [Betapace] 80 mg PO DAILY 01/21/17 [History] Metoprolol XL (24 HR) Succ [Toprol Xl] 50 mg PO DAILY #30 01/22/17 [Rx] Aspirin Enteric Coated [Aspirin EC] 81 mg PO DAILY 03/14/17 [History] Glimepiride [Amaryl] 4 mg PO BID 04/16/17 [History] Saxagliptin HCl [Onglyza] 5 mg PO DAILY 04/16/17 [History] 3 Allergy/AdvReac Type Severity Reaction Status Date / Time No Known Allergies Allergy Verified 12/28/16 09:44 - Meds/Allergy Pre-op Review Medications Reviewed: Yes Allergies Reviewed: Yes Beta Blockers on Current Med List: Yes If Beta Blockers taken, Date/Time (Last Dose taken): today 36 Anesthesia Results - Labs 04/16/17 03:03 04/16/17 03:03 - Imaging Additional studies: echo: Impressions: LVEF 40%. Mild global and segmental LV systolic dysfunction - basal inferior and inferolateral wall hypokinesis. Mild concentric left ventricular hypertrophy. Mild left ventricular diastolic dysfunction. Normal RV size with low normal RV function. Mild-moderate mitral regurgitation. Mild tricuspid regurgitation. No pulmonary hypertension by TR gradient. Anesthesia Exam Selected Entries 04/16/17 14:26 Temperature 98.5 F Pulse Rate 95 Respiratory Rate 16 Blood Pressure 151/61 O2 Sat by Pulse Oximetry 97 Oxygen Flow Rate (LPM) 2 Weight: 86kg - FOOD SERVICES MANAGER LOC: Oriented FOOD SERVICES MANAGER Motor: Normal RUE, Normal LUE, Normal RLE, Normal LLE, Normal Face FOOD SERVICES MANAGER Sensory: Normal: RUE, LUE, RLE, LLE, Face - Cardiac Rhythm: Regular Murmur: Systolic (2/6) - Pulmonary Breath Sounds: bilateral Clear Respiratory Effort: Symmetrical Anesthesia Assess/Plan ASA Score: 3 Modified Vitor Scale for Level of Consciousness: Cooperative, oriented, and tranquil Anesthetic Plan: MAC Monitoring Plan: Standard Monitors Recovery Plan: PACU <Jared Berger - Last Filed: 04/16/17 18:53> Date of Encounter: 04/16/17 Time of Encounter: 18:53 Anesthesia Results - Labs 04/16/17 03:03 04/16/17 03:03 Anesthesia Exam - HEENT Pupil (Motor): Pupils equal, EOMI Mallampati: III Teeth: Normal Oral Opening: Greater than 3 - FOOD SERVICES MANAGER FOOD SERVICES MANAGER Motor: Normal RUE, Normal LUE, Normal RLE, Normal LLE, Normal Face FOOD SERVICES MANAGER Sensory: Normal: Face, Deficit: RUE, LUE, RLE, LLE - Cardiac JVD: No Carotid Bruit: No - Pulmonary Breath Sounds: bilateral Clear Respiratory Effort: Symmetrical Anesthesia Assess/Plan ASA Score: 3
--- NOTE | 2017-04-16 15:35 | Internal Med Progress Note ---
Date of Encounter: 04/16/17 Time of Encounter: 09:00 - Assessment and plan (1) Diabetic ulcer of left foot Current Visit: No Status: Acute Assessment and plan: Patient has decreased sensation bilaterally due to diabetic neuropathy. Diabetic ulcer on left foot, CT shows possible osteomyelitis and subcutaneous gas. - We will place patient on Vanco, Zosyn, and clindamycin to cover MRSA, gram- negative, gram-positive, and anaerobic bacteria infection. - Podiatry consult and plan for surgery tonight. - Follow up blood culture and wound culture to further adjust antibiotics. Patient is at high risk because he is on vancomycin, needed close monitoring Qualifiers: Diabetic foot ulcer location: midfoot Diabetes mellitus type: type 2 Non- pressure ulcer stage: unspecified non-pressure ulcer stage Qualified Code(s): E11.621 - Type 2 diabetes mellitus with foot ulcer; L97.429 - Non-pressure chronic ulcer of left heel and midfoot with unspecified severity (2) Diabetes mellitus Current Visit: No Status: Chronic Assessment and plan: Place patient on sliding scale coverage. 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 Mild elevated troponin, stable on 4 sets. Echo shows LVEF 40%. Cardiology consult appreciated, moderate cardiovascular risk for surgery. Continue ASA, Plavix, Imdur, beta jayde, and statin Qualifiers: Coronary Disease-Associated Artery/Lesion type: [place] artery [place] vs. transplanted heart: [place] heart Associated angina: without angina Qualified Code(s): I25.10 - Atherosclerotic heart disease of [place] coronary artery without angina pectoris (5) CKD (chronic kidney disease) Current Visit: Yes Status: Chronic Assessment and plan: Creatinine level is at about baseline Qualifiers: Chronic kidney disease stage: stage 3 (moderate) Qualified Code(s): N18.9 - Chronic kidney disease, unspecified - Time Spent With Patient Greater than 35 minutes - Subjective Interval history: Patient was seen and examined. Patient has no foot pain because of diabetic neuropathy. Vitals remains stable, no fever. Elevated WBC. On Vanco and Zosyn and clindamycin. Add probiotic for C. difficile prevention. Cardio and a podiatry consult appreciated, plan for surgery this evening. - Constitutional Vitals: Temp Pulse Resp BP Pulse Ox 98.5 F 95 16 151/61 97 04/16/17 14:26 04/16/17 14:26 04/16/17 14:26 04/16/17 14:26 04/16/17 14:26 General appearance: Present: A&O X 3, answers questions appropriately - Head Head exam: Present: atraumatic, normocephalic - Eye Eye exam: Present: PERRL, conjuntiva pink, sclera anicteric Pupils: Present: PERRL - Neck Neck exam general surgery: Present: supple, trachea midline. Absent: lymphadenopathy - Respiratory Respiratory exam: Present: CTAB. Absent: accessory muscle use, rales, rhonchi, wheezes - Cardiovascular Cardiovascular exam: Present: RRR, +S1, +S2. Absent: diastolic murmur, gallop, rubs, systolic murmur - GI/Abdominal GI/Abdominal exam: Present: normal bowel sounds, soft, no peritoneal signs. Absent: distended, tenderness - Extremities Exam Extremities exam: Present: warm, radial pulses palpable and symmetrical. Absent : calf tenderness, cyanotic, pedal edema Additional comments: Left foot diabetic ulcer, well dressed - Neurological Exam Neurological exam: Present: CN II-XII intact, oriented X3, no focal deficits. Absent: pronater drift, facial droop, speech deficit - Skin Skin exam: Present: dry, intact Internal Medicine: Result - Labs CBC & Chem 7: 04/16/17 03:03 04/16/17 03:03 Labs: Short CBC 04/16/17 Range/Units 03:03 WBC 11.5 H (4.3-11.1) K/mcL Hgb 10.4 L (12.9-16.9) g/dL Hct 31.0 L (37.5-50.1) % Plt Count 168 (140-400) K/mcL Neutrophils # 8.5 (1.6-8.9) K/mcL BMP 04/16/17 03:03 Sodium 140 Potassium 3.7 Chloride 108 Carbon Dioxide 23 BUN 29 H Creatinine 1.93 H Glucose 97 Calcium 8.3 L Cardiac Enzymes 04/15/17 04/16/17 04/16/17 Range/Units 21:29 03:03 09:20 Troponin I 0.04 H* 0.05 H* 0.04 H* (0-0.03) ng/mL - ABG Interpretation ABG results: PT/INR, D-dimer PT 11.6 Seconds (9.4-12.1) 04/15/17 16:15 - Impressions Impressions Echocardiogram 04/16/17 21:17 Impressions: LVEF 40%. Mild global and segmental LV systolic dysfunction - basal inferior and inferolateral wall hypokinesis. Mild concentric left ventricular hypertrophy. Mild left ventricular diastolic dysfunction. Normal RV size with low normal RV function. Mild-moderate mitral regurgitation. Mild tricuspid regurgitation. No pulmonary hypertension by TR gradient. Left Ventricular Wall Motion: Rest Echo Findings The apex, apical inferior, mid inferior, basal inferior, apical anterior, mid anterior, basal anterior, apical septal, mid inferior septal, basal inferior septal, apical lateral, mid anterior lateral, basal anterior lateral, mid anterior septal, mid inferior lateral, basal anterior septal and basal inferior lateral schroeder were hypokinetic. Findings: Study Quality * Technically adequate exam. ECG Findings * Normal sinus rhythm. Left Ventricle * Mild concentric left ventricular hypertrophy. * Mild left ventricular diastolic dysfunction. * LVEF 40%. Right Ventricle * Normal RV size with low normal RV function. Left Atrium * Severely dilated left atrium. Right Atrium * Normal right atrial size. Aortic Valve * Trileaflet aortic valve. * No aortic stenosis. * Trace aortic regurgitation. Mitral Valve * No mitral stenosis. * Mildly sclerotic mitral valve leaflets. * Mild-moderate mitral regurgitation. Tricuspid Valve * Normal tricuspid valve structure. * Mild tricuspid regurgitation. Pulmonic Valve * Pulmonic valve is not well visualized. * No pulmonic stenosis. * No pulmonic regurgitation. Pulmonary Artery * Pulmonary artery not well visualized. Aorta * Normally sized aortic root. Pericardium * There is no pericardial effusion present. Interatrial Septum * Interatrial septum not well evaluated. IVC * The IVC is not well evaluated. Consult Discharge Plan - Plan Referrals: Raoul Gaona DO [Primary Care Provider] -
--- NOTE | 2017-04-16 15:41 | Electrocardiograph Report ---
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
--- NOTE | 2017-04-16 16:29 | Podiatry Consult Note ---
Date of Encounter: 04/16/17 Time of Encounter: 08:26 Assessment and Plan (1) Diabetic ulcer of left foot Current visit: No Status: Acute Upon arrival in clinic this morning I was instructed by the on-call physician that the patient which was my patient was in the hospital. I was instructed that his CT revealed gas in the soft tissues. He also instructed me that cardiology has been consulted for clearance for surgery as soon as possible. After reviewing the patient's chart and examining the patient I feel as though we need to proceed as quickly as possible with surgical intervention as soon as the cardiac clearance is obtained. Patient was seen at bedside and instructed that we will get him in for surgery as soon as we can. Surgery discussed was incision and drainage with possible resection of metatarsals and or toes. The patient related understanding. Patient was informed of the risks and complications of surgery. These may include but are not limited to the following ; nerve damage, numbness, tingling, RSD/CRPS, loss of motor function, loss of toe, loss of limb, loss of life, ischemia, wound healing issues, infection, scarring, keloid formation, continued pain, arthritis, non-union, mal-union, prominent hardware, displaced hardware, reaction to hardware, the need to remove hardware, bruising, continued limp, the need for future surgery, over correction, under correction, chronic swelling, the need for physical therapy, stiffness of joints, ulceration, slow healing, wound dehiscence, reaction to implant, reaction to sutures. The patient was informed of the possible conservative treatments available which may include but are not limited to the following: Orthotics, bracing, non -weight bearing, physical therapy, padding, taping, steroid injections, NSAIDS, casting. The patient was given the option to seek a second opinion. It was explained that surgery is an art and not an exact science therefore results cannot be guaranteed. All the patients questions and concerns were addressed. Patient agrees to have the surgery despite the possible risks and complications. Absolutely no guarantees were given or implied. After surgical intervention the patient may need a wound VAC for an extended period of time. An infectious disease consult will likely be necessary to manage outpatient intravenous antibiotics. The patient will need to remain nonweightbearing after the surgery. Qualifiers: Diabetic foot ulcer location: midfoot Diabetes mellitus type: type 2 Non- pressure ulcer stage: unspecified non-pressure ulcer stage Qualified Code(s): E11.621 - Type 2 diabetes mellitus with foot ulcer; L97.429 - Non-pressure chronic ulcer of left heel and midfoot with unspecified severity (2) Left leg cellulitis Current visit: No Status: Resolved History of Present Illness Chief complaint: Left foot infection HPI: Mr. Anguiano is a 72 year old male who has been treated for an ulceration on his left foot. The patient relates that recently began to become infected and presented to the emergency department. The patient relates that it causes him pain. Patient denies any other recent injuries. Patient is unsure of what caused the infection. Past Med Surg Social Fam HX - Past Medical History Medical history: cancer, CHF, coronary artery disease, diabetes, hyperlipidemia , hypertension, malignancy, myocardial infarction, renal disease Psychiatric history: depression - Past Surgical History Surgical History: angioplasty/stent, cataract, coronary bypass (CABG), orthopedic, other - Social History Smoking Status: Never smoker Smokeless Tobacco Status: No Alcohol use: none Drug use: none - Family History Father Living Status: Cause of : heart attack Hx Family Cardiac Disorders: Yes Mother Living Status: Cause of : liver cancer Hx Family Cardiac Disorders: Yes Hx Family Cancer: Yes (liver cancer) Medications and Allergies Furosemide [Lasix] 20 mg PO DAILY PRN 12/16/16 [History] Insulin ASPART [Novolog Flexpen] 2 - 10 units SQ TID 12/16/16 [History] Insulin Degludec [Tresiba Flextouch U-100] 80 unit SQ HS 12/16/16 [History] Clopidogrel [Plavix] 75 mg PO DAILY 01/02/17 [History] Docusate [Colace] 200 mg PO DAILY 01/02/17 [History] Finasteride [Proscar] 5 mg PO DAILY 01/02/17 [History] Fluticasone Propionate Nasal [Flonase] 100 mcg NS DAILY PRN 01/02/17 [History] Nitroglycerin [Nitrostat] 0.4 mg SL Q5M PRN 01/02/17 [History] Rosuvastatin [Crestor] 40 mg PO HS 01/02/17 [History] Sertraline [Zoloft] 100 mg PO DAILY 01/02/17 [History] carBAMazepine [Tegretol] 200 mg PO Q12H 01/02/17 [History] Isosorbide MONOnitrate (24 HR) [Imdur] 30 mg PO DAILY 01/21/17 [History] Omeprazole [PriLOSEC] 40 mg PO DAILY 01/21/17 [History] Ramipril [Altace] 5 mg PO DAILY 01/21/17 [History] Sotalol [Betapace] 80 mg PO DAILY 01/21/17 [History] Metoprolol XL (24 HR) Succ [Toprol Xl] 50 mg PO DAILY #30 01/22/17 [Rx] Aspirin Enteric Coated [Aspirin EC] 81 mg PO DAILY 03/14/17 [History] Glimepiride [Amaryl] 4 mg PO BID 04/16/17 [History] Saxagliptin HCl [Onglyza] 5 mg PO DAILY 04/16/17 [History] 3 Allergy/AdvReac Type Severity Reaction Status Date / Time No Known Allergies Allergy Verified 12/28/16 09:44 All Systems Reviewed: A 10-system review of systems was performed and is negative for pertinent findings except as documented above in the HPI. Physical Exam - Constitutional Vitals: Temp Pulse Resp BP Pulse Ox 98.5 F 95 16 151/61 97 04/16/17 14:26 04/16/17 14:26 04/16/17 14:26 04/16/17 14:26 04/16/17 14:26 Exam: Pedal pulses lightly palpable, capillary fill time intact to the digits. Significant edema and erythema and signs of infection with purulence and warmth noted to the left foot. Small ulceration noted to the left foot measuring approximately 1 cm in diameter sub-third metatarsal head. Sensation diminished consistent with peripheral neuropathy. CT reveals gas in the soft tissue. Results - Labs Result Diagrams: 04/16/17 03:03 04/16/17 03:03 Labs: Abnormal lab results WBC 11.5 K/mcL (4.3-11.1) H 04/16/17 03:03 RBC 3.45 M/mcL (4.19-5.50) L 04/16/17 03:03 Hgb 10.4 g/dL (12.9-16.9) L 04/16/17 03:03 Hct 31.0 % (37.5-50.1) L 04/16/17 03:03 ESR >= 130 mm/hr (0-10) H 04/15/17 16:15 BUN 29 mg/dL (8-26) H 04/16/17 03:03 Creatinine 1.93 mg/dL (0.72-1.25) H 04/16/17 03:03 Est GFR ( Amer) 42 (> 60) L 04/16/17 03:03 Est GFR (Non-Af Amer) 35 (> 60) L 04/16/17 03:03 POC Glucose 107 (58-89) H 04/16/17 12:08 Calcium 8.3 mg/dL (8.6-10.8) L 04/16/17 03:03 Phosphorus 2.2 mg/dL (2.3-4.7) L 04/15/17 16:15 Troponin I 0.04 ng/mL (0-0.03) H* 04/16/17 09:20 B-Natriuretic Peptide 193 pg/mL (0-100) H 04/15/17 16:15 Albumin 2.4 g/dL (3.5-5.0) L 04/15/17 16:15 Globulin 4.9 g/dL (2.4-3.5) H 04/15/17 16:15 Albumin/Globulin Ratio 0.5 (1.1-2.2) L 04/15/17 16:15 Urine Clarity Cloudy (Clear) A 04/15/17 17:55 Ur Specific [place] 1.027 (1.010-1.025) H 04/15/17 17:55 Urine Protein >=1000 mg/dL (Neg-Trace) H 04/15/17 17:55 Urine Glucose (UA) 500 mg/dL (Normal) H 04/15/17 17:55 Urine Blood Moderate (Negative) H 04/15/17 17:55 Urine Microscopic WBC 5-15 per hpf (0-3) H 04/15/17 17:55 Ur Squamous Epith Cells Many per lpf (None-Few) H 04/15/17 17:55 Streptococcus sp PCR DETECTED (Not Detect) A 04/15/17 16:15 Group B Strep (PCR) DETECTED (Not Detect) A 04/15/17 16:15 H & H 04/16/17 Range/Units 03:03 Hgb 10.4 L (12.9-16.9) g/dL Hct 31.0 L (37.5-50.1) % All other labs normal. Consult Discharge Plan - Plan Referrals: Raoul Gaona DO [Primary Care Provider] -
[2017-04-16] MEDS: *HR* Heparin 5,000 UNIT/ML VIAL SQ SCH (17:13)
[2017-04-16] MEDS ORDERED: Bupivacaine/Clonidine Syringe 1 EACH SYRINGE ONE (18:19)
[2017-04-16] MEDS ORDERED: *HR* FentaNYL (PF) 100 MCG/2 ML VIAL ONE (18:38)
[2017-04-16] MEDS ORDERED: *HR* Midazolam HCl 2 MG/2 ML VIAL ONE (18:38)
[2017-04-16] MEDS ORDERED: *HR* Propofol 200 MG/20 ML VIAL IVP ONE (18:39)
--- NOTE | 2017-04-16 20:09 | Operative Note ---
Date of procedure: 04/16/17 Pre-op diagnosis: Infection, left foot with osteomyelitis Post-op diagnosis: same Procedure: Incision and drainage/irrigation and debridement with tarsal resection of proximal third phalanx and distal third metatarsal, left Anesthesia: MAC Surgeon: Guanakito Brandon Estimated blood loss (cc): 10 Specimen: Distal third metatarsal and aspect of the proximal phalanx bone biopsy and Condition: stable Disposition: PACU Procedure in Detail: The patient was administered IV antibiotics preoperatively on the floor. The patient was transported to the operative room and placed on operating table. Following anesthesia the extremity was scrubbed prepped and draped in the usual aseptic fashion. A timeout was performed. An incision was made over the dorsal aspect of the third digit and third metatarsal and deepened through subcutaneous tissue with care taken to identify and retract all vital neurovascular structures. The distal aspect of the third metatarsal appeared to be mildly eroded consistent with osteomyelitis, the proximal aspect of the proximal third digit phalanx was also mildly eroded consistent with early osteomyelitis. There was noted to be purulence around the bone and gas which tracked dorsally over the fourth metatarsal as well. The fourth metatarsal appeared to be healthy as well as the proximal aspect of the proximal phalanx of the fourth digit. The decision was made to resect the head of the third metatarsal and the proximal aspect of the proximal phalanx of the third digit as well. After resection of the bone the bone was sent for pathology/culture. The ulceration on the plantar aspect of the foot was also inspected and circumferentially excised, the ulcer was extended distally and proximally to allow better access to the purulent necrotic tissue. After the adequate purulent necrotic tissue was debrided the site was pulse irrigated. The level of debridement included dermis, epidermis, subcutaneous, adipose, fibrous, tenderness, bony tissue. After adequate pulse irrigation the site was packed with iodoform gauze and a dry sterile dressing was applied. The patient tolerated the procedure and anesthesia well and was transported to the recovery room with vital signs stable and vascular status intact to both feet. The patient will be readmitted to the floor per anesthesia. The patient will have dressing changes every 12 hours. The patient will remain nonweightbearing. The patient will continue IV antibiotics and may need to be changed per infectious disease. We will likely continue changing the packing until the site looks stable at which time we will close the incisions.
--- NOTE | 2017-04-16 21:09 | Anesthesia Evaluation Post Op ---
Date of Encounter: 04/16/17 Time of Encounter: 19:50 - Vital Signs Vital Signs: See Anesthesia record - Lungs Lungs: Clear Ascult./Percussion - Airway Airway: Non-obstructed - Cardiovascular Regular Rate, Baseline Rhythm - Mental Status Mental Status: Alert & Oriented, Answers Appropriately - Pain Pain Scale: 0 (.) Pain Scale used: Numeric (1 - 10) - Nausea Vomiting Nausea Vomiting: Not Present - Hydration Hydration: NPO, Has not voided - Discharge PostOp Status: Transfer Patient to floor Anes Supervising Prov Stmt: PT tolerated MAC procedure well, VSS and pt has met criteria for discharge to floor. - MD Alecia
[2017-04-16] MEDS ORDERED: *HR* Labetalol 20 MG/4 ML SYRINGE IVP ONE (23:36)
[2017-04-17] MEDS: Insulin LISPRO 300 UNITS/3 ML VIAL SQ SCH ×5 (00:11→20:56)
[2017-04-17] MEDS: Clindamycin 900 MG/50 ML 900 MG/50 ML IV.SOLN IVPB SCH ×3 (00:22→17:58)
[2017-04-17] MEDS: carBAMazepine 200 MG TABLET PO SCH ×2 (00:24→15:10)
[2017-04-17] MEDS: Piperacillin/Tazobactam 3.375 GM/200 ML BAG IVPB SCH ×3 (01:46→21:16)
[2017-04-17] MEDS: Acetaminophen 325 MG TABLET PO PRN (04:10)
[2017-04-17] MEDS: *HR* Heparin 5,000 UNIT/ML VIAL SQ SCH ×2 (04:17→17:56)
[2017-04-17 06:55] LABS: Basophils % 0.2 %; Hematocrit 29.6 % (37.5-50.1); Lymphocytes # 1.2 K/mcL (0.6-4.6); Lymphocytes % 12.2 %; Mean Corpuscular HGB Conc 33.8 g/dL (31.6-35.5); Mean Corpuscular Volume 88.9 fL (83.0-100.0); Mean Platelet Volume 10.1 fL (9.4-12.4); Monocytes # 0.8 K/mcL (0.0-1.3); Monocytes % 8.6 %; Neutrophils # 7.4 K/mcL (1.6-8.9); Nucleated Red Blood Cells 0.4 /100 WBC (0); Platelet Count 195 K/mcL (140-400); Red Blood Count 3.33 M/mcL (4.19-5.50); Red Cell Distribution Width 13.1 % (11.5-14.5)
[2017-04-17 07:03] LABS: Calcium 8.6 mg/dL (8.6-10.8); Potassium 3.3 mEq/L (3.5-4.5)
[2017-04-17] MEDS: Aspirin Enteric Coated 81 MG Tablet PO SCH (09:31)
[2017-04-17] MEDS: Finasteride 5 MG TABLET PO SCH (09:31)
[2017-04-17] MEDS: Lisinopril 20 MG TABLET PO SCH (09:31)
[2017-04-17] MEDS: Lactobacillus 1 EACH CAP.SPRINK PO SCH (09:31)
[2017-04-17] MEDS: Metoprolol XL (24 HR) Succ 25 MG TAB.ER.24H PO SCH (09:31)
[2017-04-17] MEDS: Isosorbide MONOnitrate (24 HR) 30 MG TAB.ER.24H PO SCH (09:31)
--- NOTE | 2017-04-17 10:28 | Internal Med Progress Note ---
Date of Encounter: 04/17/17 Time of Encounter: 10:26 - Assessment and plan (1) Osteomyelitis Current Visit: Yes Status: Acute Assessment and plan: CT left foot shows osteomyelitis and subcutaneous gas in left 3rd phalanx and into 3rd and 4th metatarsals; continue IV Zosyn and Clindamycin, hold Vancomycin for now; 1/2 blood cultures grow GPC, serology positive for Gr B strep; wound culture shows GPC; f/up final cultures and repeat blood cultures; Podiatry on board, s/p incision and drainage and irrigation and debridement with tarsal resection of 3rd phalanx and distal metatarsal. Continue local wound care per Podiatry. Will consult ID for antibiotic recommendations; patient will need senior care IV antibiotics; PT/OT consult; Qualifiers: Osteomyelitis type: other acute Osteomyelitis location: foot Laterality: left Qualified Code(s): M86.172 - Other acute osteomyelitis, left ankle and foot (2) Diabetic ulcer of left foot Current Visit: Yes Status: Acute Assessment and plan: plan as above; Qualifiers: Diabetic foot ulcer location: midfoot Diabetes mellitus type: type 2 Non- pressure ulcer stage: unspecified non-pressure ulcer stage Qualified Code(s): E11.621 - Type 2 diabetes mellitus with foot ulcer; L97.429 - Non-pressure chronic ulcer of left heel and midfoot with unspecified severity; L97.429 - Non- pressure chronic ulcer of left heel and midfoot with unspecified severity; L97.429 - Non-pressure chronic ulcer of left heel and midfoot with unspecified severity; L97.429 - Non-pressure chronic ulcer of left heel and midfoot with unspecified severity (3) Depression Current Visit: Yes Status: Chronic Qualifiers: Depression Type: unspecified Qualified Code(s): F32.9 - Major depressive disorder, single episode, unspecified (4) Diabetes mellitus Current Visit: Yes Status: Chronic Assessment and plan: reports poorly controlled DM at home; blood sugars currently well-controlled; continue Accucheck blood glucose monitoring and SSI; diabetic diet; Qualifiers: Diabetes mellitus type: type 2 Diabetes mellitus complication status: with neurologic complications Diabetes mellitus complication detail: with polyneuropathy Diabetes mellitus lobsterman insulin use: with senior care use Qualified Code(s): E11.42 - Type 2 diabetes mellitus with diabetic polyneuropathy; 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 transplanted heart: [place] heart Associated angina: without angina Qualified Code(s): I25.810 - Atherosclerosis of coronary artery bypass graft(s) without angina pectoris (6) CHF (congestive heart failure) Current Visit: Yes Status: Chronic Assessment and plan: Echocardiogram shows globally reduced EF around 40%; continue Imdur, ACEI, beta jayde; Qualifiers: Congestive heart failure type: combined Congestive heart failure chronicity : chronic Qualified Code(s): I50.42 - Chronic combined systolic (congestive) and diastolic (congestive) heart failure (7) CKD (chronic kidney disease) Current Visit: Yes Status: Chronic Assessment and plan: serum creatinine stable, around baseline; continue to monitor closely; Qualifiers: Chronic kidney disease stage: stage 3 (moderate) Qualified Code(s): N18.3 - Chronic kidney disease, stage 3 (moderate) - Subjective Interval history: Reports feeling hungry, requests food; no left foot pain; has not been out of bed since surgery; had left 3rd toe amputation yesterday; continues to have intermittent chills; no nausea, vomiting, abdominal pain; - Constitutional Vitals: Temp Pulse Resp BP Pulse Ox 99.7 F H 75 16 152/64 93 04/17/17 06:37 04/17/17 06:37 04/17/17 06:37 04/17/17 06:37 04/17/17 06:37 General appearance: Present: A&O X 3, answers questions appropriately - Respiratory Respiratory exam: Present: CTAB. Absent: accessory muscle use, rales, rhonchi, wheezes - Cardiovascular Cardiovascular exam: Present: RRR, +S1, +S2. Absent: diastolic murmur, gallop, rubs, systolic murmur - GI/Abdominal GI/Abdominal exam: Present: normal bowel sounds, soft, no peritoneal signs. Absent: distended, tenderness - Extremities Exam Extremities exam: Present: full ROM, warm, radial pulses palpable and symmetrical. Absent: calf tenderness, cyanotic, pedal edema Additional comments: left foot in surgical dry dressing - Neurological Exam Neurological exam: Present: CN II-XII intact, oriented X3, no focal deficits. Absent: pronater drift, facial droop, speech deficit Internal Medicine: Result - Labs CBC & Chem 7: 04/17/17 06:33 04/17/17 06:33 Labs: Short CBC 04/17/17 Range/Units 06:33 WBC 9.7 (4.3-11.1) K/mcL Hgb 10.0 L (12.9-16.9) g/dL Hct 29.6 L (37.5-50.1) % Plt Count 195 (140-400) K/mcL Neutrophils # 7.4 (1.6-8.9) K/mcL BMP 04/16/17 04/17/17 03:03 06:33 Sodium 140 140 Potassium 3.7 3.3 L Chloride 108 108 Carbon Dioxide 23 22 BUN 29 H 28 H Creatinine 1.93 H 2.00 H Glucose 97 143 H Calcium 8.3 L 8.6 - ABG Interpretation ABG results: PT/INR, D-dimer PT 11.6 Seconds (9.4-12.1) 04/15/17 16:15 - Impressions Impressions Foot X-Ray 04/16/17 20:11 IMPRESSION: Postsurgical changes involving amputation centered at the 3rd metatarsophalangeal joint. D/ / Carlos Lan MD / Carlos Lan MD Interpreting Provider: Carlos Lan MD - VTE Documentation of Mechanical Device: Intermittent pneumatic compression device Consult Discharge Plan - Plan Referrals: Raoul Gaona DO [Primary Care Provider] -
[2017-04-17] MEDS ORDERED: Isosorbide MONOnitrate (24 HR) 60 MG TAB.ER.24H PO SCH (10:30)
--- NOTE | 2017-04-17 13:22 | Podiatry Progress Note ---
Date of Encounter: 04/17/17 Time of Encounter: 12:30 - Assessment and Plan (1) Diabetic ulcer of left foot Current Visit: No Status: Acute S/p incision and drainage/irrigation and debridement with tarsal resection of proximal third phalanx and distal third metatarsal, left by Sessions on 03/23. Per operative report: Distal aspect of the third metatarsal appeared to be mildly eroded consistent with osteomyelitis, the proximal aspect of the proximal third digit phalanx was also mildly eroded consistent with early osteomyelitis. There was noted to be purulence around the bone and gas which tracked dorsally over the fourth metatarsal. Open surgical wound to the left foot at the 3rd metatarsal head, plantar and dorsally. Moderate amount of serosanguineous drainage observed to dressing. No pus. WBC: 9.7 Plan: Surgical wound flush packed with iodoform gauze, 4x4 dry sterile gauze and kerlix. Continue wound care every 12 hours. The patient will remain nonweightbearing. Continue IV antibiotics, Infectious Disease consult ordered. Once site looks stable Dr Sessions to plan on closing the incisions. Qualifiers: Diabetic foot ulcer location: midfoot Diabetes mellitus type: type 2 Non- pressure ulcer stage: unspecified non-pressure ulcer stage Qualified Code(s): E11.621 - Type 2 diabetes mellitus with foot ulcer; L97.429 - Non-pressure chronic ulcer of left heel and midfoot with unspecified severity; L97.429 - Non- pressure chronic ulcer of left heel and midfoot with unspecified severity; L97.429 - Non-pressure chronic ulcer of left heel and midfoot with unspecified severity; L97.429 - Non-pressure chronic ulcer of left heel and midfoot with unspecified severity (2) Diabetes mellitus Current Visit: No Status: Chronic Qualifiers: Diabetes mellitus type: type 2 Diabetes mellitus complication status: with neurologic complications Diabetes mellitus complication detail: with polyneuropathy Diabetes mellitus market development trainer insulin use: with nursing home use Qualified Code(s): E11.42 - Type 2 diabetes mellitus with diabetic polyneuropathy; 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 Patient is sitting up in chair with dressing intact to the left foot with moderate amount of drainage observed to dressing. No c/o pain. Patient states he is hungry and has not had anything to eat today. Objective - Vital Signs Vital Signs: Vital Signs Temp Pulse Resp BP Pulse Ox 04/17/17 11:55 99.2 F 80 14 161/77 95 04/17/17 06:37 99.7 F H 75 16 152/64 93 04/17/17 03:50 100.5 F H 84 16 187/83 94 04/17/17 01:42 84 172/76 04/17/17 00:00 98.2 F 77 20 170/88 96 04/16/17 23:05 98.7 F 75 16 175/101 94 04/16/17 23:00 98.7 F 75 18 175/101 95 04/16/17 21:30 98.4 F 66 18 173/80 96 04/16/17 21:00 98.4 F 64 18 170/83 96 04/16/17 20:30 98.3 F 65 18 155/88 94 04/16/17 14:26 98.5 F 95 16 151/61 97 Intake and Output 04/16/17 04/17/17 04/17/17 23:59 07:59 15:59 Intake Total 650 / 650 250 / 250 Output Total 735 / 735 0 / 0 0 / 0 Balance -85 / -85 250 / 250 0 / 0 Intake: IV Fluids 650 / 650 250 / 250 Cleocin Premix 900 MG/50 ML 900 0 / 0 50 / 50 mg In 50 ml @ 50 mls/hr IVPB Q8HR [facility] Rx#:[id number] Zosyn Premix 3.375 GM/200 ML 3. 400 / 400 200 / 200 375 gm In 200 ml @ 50 mls/hr IVPB Q8H [facility] Rx#:[id number] Vancocin 1,250 MG In Dextrose 5 250 / 250 % 250 ML @ 166.67 mls/hr IVPB Q24H [facility] Rx#:[id number] Oral 0 / 0 0 / 0 Output: Urine 725 / 725 0 / 0 0 / 0 Estimated Blood Loss Other: Meal Dinner NPO Percent of Meal Consumed 0% # Voids 1 # Bowel Movements 0 Weight 86.636 kg Blood Glucose* 76 139 125 Patient Weight 04/17/17 23:59 Weight 86.636 kg - Exam Exam: General appearance: alert awake oriented X 3. Calm and pleasant, no acute distress.. Vascular: Pedal pulses +2/4 DP/PT , No evidence of cyanosis, pallor or rubor, Edema graded at 1+/4, Skin Tempature warm, No calf pain with manual compression. capillary refill time is immediate to digits. Neurologic: Sensation intact with light touch to right foot. . Postop Exam: S/P Open surgical wound to the dorsal aspect of the right foot at the third metatarsal head communicating through to the plantar aspect. Moderate amount of serosanguineous drainage observed to packing and dressing. Light periwound erythema, no streaking. No pus, no odor. - Lab Result Diagrams: 04/17/17 06:33 04/17/17 06:33 Labs: Abnormal lab results RBC 3.33 M/mcL (4.19-5.50) L 04/17/17 06:33 Hgb 10.0 g/dL (12.9-16.9) L 04/17/17 06:33 Hct 29.6 % (37.5-50.1) L 04/17/17 06:33 Nucleated RBCs/100 WBC 0.4 /100 WBC (0) H 04/17/17 06:33 ESR >= 130 mm/hr (0-10) H 04/15/17 16:15 Potassium 3.3 mEq/L (3.5-4.5) L 04/17/17 06:33 BUN 28 mg/dL (8-26) H 04/17/17 06:33 Creatinine 2.00 mg/dL (0.72-1.25) H 04/17/17 06:33 Est GFR ( Amer) 40 (> 60) L 04/17/17 06:33 Est GFR (Non-Af Amer) 33 (> 60) L 04/17/17 06:33 Glucose 143 mg/dL (70-99) H 04/17/17 06:33 POC Glucose 125 (58-89) H 04/17/17 11:53 Phosphorus 2.2 mg/dL (2.3-4.7) L 04/15/17 16:15 Troponin I 0.04 ng/mL (0-0.03) H* 04/16/17 09:20 B-Natriuretic Peptide 193 pg/mL (0-100) H 04/15/17 16:15 Albumin 2.4 g/dL (3.5-5.0) L 04/15/17 16:15 Globulin 4.9 g/dL (2.4-3.5) H 04/15/17 16:15 Albumin/Globulin Ratio 0.5 (1.1-2.2) L 04/15/17 16:15 Urine Clarity Cloudy (Clear) A 04/15/17 17:55 Ur Specific [place] 1.027 (1.010-1.025) H 04/15/17 17:55 Urine Protein >=1000 mg/dL (Neg-Trace) H 04/15/17 17:55 Urine Glucose (UA) 500 mg/dL (Normal) H 04/15/17 17:55 Urine Blood Moderate (Negative) H 04/15/17 17:55 Urine Microscopic WBC 5-15 per hpf (0-3) H 04/15/17 17:55 Ur Squamous Epith Cells Many per lpf (None-Few) H 04/15/17 17:55 Streptococcus sp PCR DETECTED (Not Detect) A 04/15/17 16:15 Group B Strep (PCR) DETECTED (Not Detect) A 04/15/17 16:15 Microbiology, Last 48 Hours 04/16/17 19:20 Surgical Biopsy Culture - Preliminary Left Foot - VTE Documentation of Mechanical Device: Intermittent pneumatic compression device Consult Discharge Plan - Plan Referrals: Raoul Gaona DO [Primary Care Provider] -
[2017-04-18] MEDS: Clindamycin 900 MG/50 ML 900 MG/50 ML IV.SOLN IVPB SCH ×2 (00:06→09:04)
[2017-04-18] MEDS: carBAMazepine 200 MG TABLET PO SCH ×2 (00:06→12:43)
[2017-04-18] MEDS: Piperacillin/Tazobactam 3.375 GM/200 ML BAG IVPB SCH (03:58)
[2017-04-18 05:10] LABS: Basophils % 0.1 %; Eosinophils % 0.4 %; Hematocrit 29.8 % (37.5-50.1); Hemoglobin 10.1 g/dL (12.9-16.9); Immature Granulocytes % 1.4 % (0-4); Lymphocytes # 1.6 K/mcL (0.6-4.6); Lymphocytes % 20.7 %; Mean Corpuscular HGB Conc 33.9 g/dL (31.6-35.5); Mean Corpuscular Volume 88.4 fL (83.0-100.0); Mean Platelet Volume 10.3 fL (9.4-12.4); Monocytes # 0.7 K/mcL (0.0-1.3); Monocytes % 8.5 %; Neutrophils # 5.3 K/mcL (1.6-8.9); Platelet Count 253 K/mcL (140-400); Red Blood Count 3.37 M/mcL (4.19-5.50); Red Cell Distribution Width 13.1 % (11.5-14.5); Segmented Neutrophils % 68.9 %
[2017-04-18] MEDS: *HR* Heparin 5,000 UNIT/ML VIAL SQ SCH ×2 (05:14→17:25)
[2017-04-18 05:30] LABS: Calcium 8.2 mg/dL (8.6-10.8); Magnesium 1.4 mg/dL (1.6-2.6); Potassium 3.8 mEq/L (3.5-4.5)
[2017-04-18] MEDS: Isosorbide MONOnitrate (24 HR) 30 MG TAB.ER.24H PO SCH (09:02)
[2017-04-18] MEDS: Metoprolol XL (24 HR) Succ 25 MG TAB.ER.24H PO SCH (09:02)
[2017-04-18] MEDS: Lisinopril 20 MG TABLET PO SCH (09:03)
[2017-04-18] MEDS: Finasteride 5 MG TABLET PO SCH (09:03)
[2017-04-18] MEDS: Aspirin Enteric Coated 81 MG Tablet PO SCH (09:03)
[2017-04-18] MEDS: Lactobacillus 1 EACH CAP.SPRINK PO SCH (09:03)
[2017-04-18] MEDS: Insulin LISPRO 300 UNITS/3 ML VIAL SQ SCH ×4 (09:15→21:00)
--- NOTE | 2017-04-18 10:02 | Internal Med Progress Note ---
Date of Encounter: 04/18/17 Time of Encounter: 10:01 - Assessment and plan (1) Osteomyelitis Current Visit: Yes Status: Acute Assessment and plan: CT left foot shows osteomyelitis and subcutaneous gas in left 3rd phalanx and into 3rd and 4th metatarsals; 1/2 blood cultures grow GPC, serology positive for Gr B strep; intraoperative wound culture shows GB Strep; will change antibiotics to IV Unasyn and hold IV Zosyn and Clindamycin f/up repeat blood cultures; Podiatry on board, s/p incision and drainage and irrigation and debridement with tarsal resection of 3rd phalanx and distal metatarsal- POD#2. Continue local wound care per Podiatry. Plan for wound closure on 04/20. Will consult ID for antibiotic recommendations; patient will need extermination inspector IV antibiotics; PT/ OT consult after wound closure; Qualifiers: Osteomyelitis type: other acute Osteomyelitis location: foot Laterality: left Qualified Code(s): M86.172 - Other acute osteomyelitis, left ankle and foot (2) Diabetic ulcer of left foot Current Visit: Yes Status: Acute Assessment and plan: plan as above; Qualifiers: Diabetic foot ulcer location: midfoot Diabetes mellitus type: type 2 Non- pressure ulcer stage: unspecified non-pressure ulcer stage Qualified Code(s): E11.621 - Type 2 diabetes mellitus with foot ulcer; L97.429 - Non-pressure chronic ulcer of left heel and midfoot with unspecified severity; L97.429 - Non- pressure chronic ulcer of left heel and midfoot with unspecified severity; L97.429 - Non-pressure chronic ulcer of left heel and midfoot with unspecified severity; L97.429 - Non-pressure chronic ulcer of left heel and midfoot with unspecified severity (3) Depression Current Visit: Yes Status: Chronic Qualifiers: Depression Type: unspecified Qualified Code(s): F32.9 - Major depressive disorder, single episode, unspecified (4) Diabetes mellitus Current Visit: Yes Status: Chronic Assessment and plan: reports poorly controlled DM at home; blood sugars currently well-controlled except a couple of high readings yesterday, which is due to sweet tea per patient; continue Accucheck blood glucose monitoring and SSI; diabetic diet; Qualifiers: Diabetes mellitus type: type 2 Diabetes mellitus complication status: with neurologic complications Diabetes mellitus complication detail: with polyneuropathy Diabetes mellitus intermediate insulin use: with intermediate use Qualified Code(s): E11.42 - Type 2 diabetes mellitus with diabetic polyneuropathy; Z79.4 - 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 transplanted heart: [place] heart Associated angina: without angina Qualified Code(s): I25.810 - Atherosclerosis of coronary artery bypass graft(s) without angina pectoris (6) CHF (congestive heart failure) Current Visit: Yes Status: Chronic Assessment and plan: Echocardiogram shows globally reduced EF around 40%; continue Imdur, ACEI, beta jayde; BP better controlled today; Qualifiers: Congestive heart failure type: combined Congestive heart failure chronicity : chronic Qualified Code(s): I50.42 - Chronic combined systolic (congestive) and diastolic (congestive) heart failure (7) CKD (chronic kidney disease) Current Visit: Yes Status: Chronic Assessment and plan: serum creatinine stable, around baseline; continue to monitor closely; Qualifiers: Chronic kidney disease stage: stage 3 (moderate) Qualified Code(s): N18.3 - Chronic kidney disease, stage 3 (moderate) - Subjective Interval history: Reports feeling well; mild pain in left foot as his dressing was just changed; no fever/chills, no weight bearing on left foot; awaiting OR in 2 days to close his sutures; - Constitutional Vitals: Temp Pulse Resp BP Pulse Ox 98.1 F 81 16 144/76 95 04/18/17 07:08 04/18/17 07:08 04/18/17 07:08 04/18/17 07:08 04/18/17 07:08 General appearance: Present: A&O X 3, answers questions appropriately - Respiratory Respiratory exam: Present: CTAB. Absent: accessory muscle use, rales, rhonchi, wheezes - Cardiovascular Cardiovascular exam: Present: RRR, +S1, +S2. Absent: diastolic murmur, gallop, rubs, systolic murmur - GI/Abdominal GI/Abdominal exam: Present: normal bowel sounds, soft, no peritoneal signs. Absent: distended, tenderness - Extremities Exam Extremities exam: Present: full ROM, warm, radial pulses palpable and symmetrical. Absent: calf tenderness, cyanotic, pedal edema Additional comments: left foot surgical dressing dry and intact - Neurological Exam Neurological exam: Present: CN II-XII intact, oriented X3, no focal deficits. Absent: pronater drift, facial droop, speech deficit Internal Medicine: Result - Labs CBC & Chem 7: 04/18/17 04:49 04/18/17 04:49 Labs: Short CBC 04/18/17 Range/Units 04:49 WBC 7.7 (4.3-11.1) K/mcL Hgb 10.1 L (12.9-16.9) g/dL Hct 29.8 L (37.5-50.1) % Plt Count 253 (140-400) K/mcL Neutrophils # 5.3 (1.6-8.9) K/mcL BMP 04/18/17 04:49 Sodium 140 Potassium 3.8 Chloride 108 Carbon Dioxide 22 BUN 28 H Creatinine 2.03 H Glucose 124 H Calcium 8.2 L - ABG Interpretation ABG results: PT/INR, D-dimer PT 11.6 Seconds (9.4-12.1) 04/15/17 16:15 - VTE Documentation of Mechanical Device: Intermittent pneumatic compression device Consult Discharge Plan - Plan Referrals: Raoul Gaona DO [Primary Care Provider] -
--- NOTE | 2017-04-18 11:24 | Podiatry Progress Note ---
Date of Encounter: 04/18/17 Time of Encounter: 09:10 - Assessment and Plan (1) Diabetic ulcer of left foot Current Visit: Yes Status: Acute S/p incision and drainage/irrigation and debridement with tarsal resection of proximal third phalanx and distal third metatarsal, left by Dr. Brandon on 03/23. Per operative report: Distal aspect of the third metatarsal appeared to be mildly eroded consistent with osteomyelitis, the proximal aspect of the proximal third digit phalanx was also mildly eroded consistent with early osteomyelitis. There was noted to be purulence around the bone and gas which tracked dorsally over the fourth metatarsal. Open surgical wound to the left foot at the 3rd metatarsal head, plantar and dorsally. No purulent drainage. WBC: 7.7 Plan: Surgical wound flush packed with iodoform gauze, 4x4 dry sterile gauze and kerlix. Continue wound care every 12 hours. The patient will remain nonweightbearing. Continue IV antibiotics, Infectious Disease consult ordered. Dr. Brandon to plan on closing the incision in the OR tomorrow (04/19/17). Will make NPO after midnight. Qualifiers: Diabetic foot ulcer location: midfoot Diabetes mellitus type: type 2 Non- pressure ulcer stage: unspecified non-pressure ulcer stage Qualified Code(s): E11.621 - Type 2 diabetes mellitus with foot ulcer; L97.429 - Non-pressure chronic ulcer of left heel and midfoot with unspecified severity; L97.429 - Non- pressure chronic ulcer of left heel and midfoot with unspecified severity; L97.429 - Non-pressure chronic ulcer of left heel and midfoot with unspecified severity; L97.429 - Non-pressure chronic ulcer of left heel and midfoot with unspecified severity (2) Diabetes mellitus Current Visit: Yes Status: Chronic Qualifiers: Diabetes mellitus type: type 2 Diabetes mellitus complication status: with neurologic complications Diabetes mellitus complication detail: with polyneuropathy Diabetes mellitus snf insulin use: with raw shellfish preparer use Qualified Code(s): E11.42 - Type 2 diabetes mellitus with diabetic polyneuropathy; Z79.4 - [facility] (current) use of insulin Subjective Interval history: Patient is s/p incision and drainage/irrigation and debridement with tarsal resection of proximal third phalanx and distal third metatarsal, left by Dr. Brandon on 04/16/17 for osteomyelitis. Patient is sitting up in bed. No c/o pain, fever, chills or calf pain. Objective - Vital Signs Vital Signs: Vital Signs Temp Pulse Resp BP Pulse Ox 04/18/17 10:55 98.5 F 82 16 143/65 94 04/18/17 07:08 98.1 F 81 16 144/76 95 04/18/17 04:00 98.7 F 70 16 174/76 95 04/17/17 23:37 98.1 F 75 16 163/76 95 04/17/17 19:36 98.3 F 76 15 175/78 96 04/17/17 15:48 98.8 F 85 16 150/60 95 04/17/17 11:55 99.2 F 80 14 161/77 95 Intake and Output 04/17/17 04/18/17 04/18/17 23:59 07:59 15:59 Intake Total 170 / 170 370 / 370 240 / 240 Output Total 0 / 0 200 / 200 Balance 170 / 170 170 / 170 240 / 240 Intake: IV Fluids 50 / 50 250 / 250 Cleocin Premix 900 MG/50 ML 900 50 / 50 50 / 50 mg In 50 ml @ 50 mls/hr IVPB Q8HR [facility] Rx#:[id number] Zosyn Premix 3.375 GM/200 ML 3. 200 / 200 375 gm In 200 ml @ 50 mls/hr IVPB Q8H [facility] Rx#:[id number] Oral 120 / 120 120 / 120 240 / 240 Output: Urine 0 / 0 200 / 200 Other: Meal Breakfast Percent of Meal Consumed 25% 50% # Voids 1 1 Blood Glucose* 292 129 - Exam Exam: General appearance: alert awake oriented X 3. Calm and pleasant, no acute distress.. Vascular: Pedal pulses +2/4 DP/PT , No evidence of cyanosis, pallor or rubor, Edema graded at 1+/4, Skin Temperature warm, No calf pain with manual compression. capillary refill time is immediate to digits. Neurologic: Sensation intact with light touch to right foot. . Postop Exam: S/P Open surgical wound to the dorsal aspect of the right foot at the third metatarsal head communicating through to the plantar aspect. Moderate amount of serosanguineous drainage observed to packing and dressing. Light periwound erythema, no streaking. No pus, no odor. - Lab Result Diagrams: 04/18/17 04:49 04/18/17 04:49 Labs: Abnormal lab results RBC 3.37 M/mcL (4.19-5.50) L 04/18/17 04:49 Hgb 10.1 g/dL (12.9-16.9) L 04/18/17 04:49 Hct 29.8 % (37.5-50.1) L 04/18/17 04:49 Nucleated RBCs/100 WBC 0.4 /100 WBC (0) H 04/17/17 06:33 ESR >= 130 mm/hr (0-10) H 04/15/17 16:15 BUN 28 mg/dL (8-26) H 04/18/17 04:49 Creatinine 2.03 mg/dL (0.72-1.25) H 04/18/17 04:49 Est GFR ( Amer) 40 (> 60) L 04/18/17 04:49 Est GFR (Non-Af Amer) 33 (> 60) L 04/18/17 04:49 Glucose 124 mg/dL (70-99) H 04/18/17 04:49 POC Glucose 292 (58-89) H 04/17/17 19:33 Calcium 8.2 mg/dL (8.6-10.8) L 04/18/17 04:49 Phosphorus 2.2 mg/dL (2.3-4.7) L 04/15/17 16:15 Magnesium 1.4 mg/dL (1.6-2.6) L 04/18/17 04:49 Troponin I 0.04 ng/mL (0-0.03) H* 04/16/17 09:20 B-Natriuretic Peptide 193 pg/mL (0-100) H 04/15/17 16:15 Albumin 2.4 g/dL (3.5-5.0) L 04/15/17 16:15 Globulin 4.9 g/dL (2.4-3.5) H 04/15/17 16:15 Albumin/Globulin Ratio 0.5 (1.1-2.2) L 04/15/17 16:15 Urine Clarity Cloudy (Clear) A 04/15/17 17:55 Ur Specific [place] 1.027 (1.010-1.025) H 04/15/17 17:55 Urine Protein >=1000 mg/dL (Neg-Trace) H 04/15/17 17:55 Urine Glucose (UA) 500 mg/dL (Normal) H 04/15/17 17:55 Urine Blood Moderate (Negative) H 04/15/17 17:55 Urine Microscopic WBC 5-15 per hpf (0-3) H 04/15/17 17:55 Ur Squamous Epith Cells Many per lpf (None-Few) H 04/15/17 17:55 Streptococcus sp PCR DETECTED (Not Detect) A 04/15/17 16:15 Group B Strep (PCR) DETECTED (Not Detect) A 04/15/17 16:15 Microbiology, Last 48 Hours 04/16/17 19:14 Wound Culture - Final Left Foot Strep agalactiae - (Group B) 04/16/17 19:20 Surgical Biopsy Culture - Final Left Foot Strep agalactiae - (Group B) - VTE Documentation of Mechanical Device: Intermittent pneumatic compression device Consult Discharge Plan - Plan Referrals: Raoul Gaona DO [Primary Care Provider] -
[2017-04-18] MEDS ORDERED: Ampicillin/Sulbactam 3,000 MG in 0.9 % Sodium Chloride Mini Bag 100 ML IVPB SCH (12:00)
[2017-04-18] MEDS: Acetaminophen 325 MG TABLET PO PRN (16:49)
[2017-04-18] MEDS: Ampicillin/Sulbactam 3,000 MG in 0.9 % Sodium Chloride Mini Bag 100 ML IVPB SCH (20:39)
[2017-04-19] MEDS: carBAMazepine 200 MG TABLET PO SCH ×2 (01:01→12:53)
[2017-04-19] MEDS: Ampicillin/Sulbactam 3,000 MG in 0.9 % Sodium Chloride Mini Bag 100 ML IVPB SCH ×4 (01:01→21:28)
[2017-04-19] MEDS: *HR* Heparin 5,000 UNIT/ML VIAL SQ SCH ×2 (05:32→21:29)
[2017-04-19 05:50] LABS: Magnesium 1.7 mg/dL (1.6-2.6); Potassium 3.7 mEq/L (3.5-4.5)
[2017-04-19] MEDS: Lactobacillus 1 EACH CAP.SPRINK PO SCH (09:01)
[2017-04-19] MEDS: Isosorbide MONOnitrate (24 HR) 30 MG TAB.ER.24H PO SCH (09:02)
[2017-04-19] MEDS: Finasteride 5 MG TABLET PO SCH (09:02)
[2017-04-19] MEDS: Lisinopril 20 MG TABLET PO SCH (09:02)
[2017-04-19] MEDS: Metoprolol XL (24 HR) Succ 25 MG TAB.ER.24H PO SCH (09:02)
[2017-04-19] MEDS: Aspirin Enteric Coated 81 MG Tablet PO SCH (09:04)
[2017-04-19] MEDS ORDERED: Isosorbide MONOnitrate (24 HR) 30 MG TAB.ER.24H PO STA (10:36)
--- NOTE | 2017-04-19 10:50 | Internal Med Progress Note ---
Date of Encounter: 04/19/17 Time of Encounter: 10:48 - Assessment and plan (1) Osteomyelitis Current Visit: Yes Status: Acute Assessment and plan: CT left foot shows osteomyelitis and subcutaneous gas in left 3rd phalanx and into 3rd and 4th metatarsals; 1/2 blood cultures grow GBS, serology positive for Gr B strep; intraoperative wound culture shows GB Strep; Continue IV Unasyn , repeat blood cultures are negative; Podiatry on board, s/p incision and drainage and irrigation and debridement with tarsal resection of 3rd phalanx and distal metatarsal- POD#3. Continue local wound care per Podiatry. Plan for wound closure today. ID consult for antibiotic recommendations, pending; patient will need ad terminal makeup operator IV antibiotics ; PT/OT consult after wound closure; Qualifiers: Osteomyelitis type: other acute Osteomyelitis location: foot Laterality: left Qualified Code(s): M86.172 - Other acute osteomyelitis, left ankle and foot (2) Diabetic ulcer of left foot Current Visit: Yes Status: Acute Assessment and plan: plan as above; Qualifiers: Diabetic foot ulcer location: midfoot Diabetes mellitus type: type 2 Non- pressure ulcer stage: unspecified non-pressure ulcer stage Qualified Code(s): E11.621 - Type 2 diabetes mellitus with foot ulcer; L97.429 - Non-pressure chronic ulcer of left heel and midfoot with unspecified severity; L97.429 - Non- pressure chronic ulcer of left heel and midfoot with unspecified severity; L97.429 - Non-pressure chronic ulcer of left heel and midfoot with unspecified severity; L97.429 - Non-pressure chronic ulcer of left heel and midfoot with unspecified severity (3) Depression Current Visit: Yes Status: Chronic Qualifiers: Depression Type: unspecified Qualified Code(s): F32.9 - Major depressive disorder, single episode, unspecified (4) Diabetes mellitus Current Visit: Yes Status: Chronic Assessment and plan: reports poorly controlled DM at home; blood sugars noted to be fluctuating but constantly greater than 180. We will add low-dose basal insulin. 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 transplanted heart: [place] heart Associated angina: without angina Qualified Code(s): I25.810 - Atherosclerosis of coronary artery bypass graft(s) without angina pectoris (6) CHF (congestive heart failure) Current Visit: Yes Status: Chronic Assessment and plan: Echocardiogram shows globally reduced EF around 40%; continue Imdur, ACEI, beta jayde; BP noted to be elevated, will increase Imdur. Qualifiers: Congestive heart failure type: combined Congestive heart failure chronicity : chronic Qualified Code(s): I50.42 - Chronic combined systolic (congestive) and diastolic (congestive) heart failure (7) CKD (chronic kidney disease) Current Visit: Yes Status: Chronic Assessment and plan: serum creatinine stable, around baseline; continue to monitor closely; Qualifiers: Chronic kidney disease stage: stage 3 (moderate) Qualified Code(s): N18.3 - Chronic kidney disease, stage 3 (moderate) - Subjective Interval history: No new complaints; awaiting OR today to close left foot operative wound; no foot pain, fever/chills, nausea/vomiting, abdominal or chest pain; - Constitutional Vitals: Temp Pulse Resp BP Pulse Ox 98.5 F 76 15 162/71 94 04/19/17 07:07 04/19/17 07:07 04/19/17 07:07 04/19/17 07:07 04/19/17 07:07 General appearance: Present: A&O X 3, answers questions appropriately - Respiratory Respiratory exam: Present: CTAB. Absent: accessory muscle use, rales, rhonchi, wheezes - Cardiovascular Cardiovascular exam: Present: RRR, +S1, +S2. Absent: diastolic murmur, gallop, rubs, systolic murmur - GI/Abdominal GI/Abdominal exam: Present: normal bowel sounds, soft, no peritoneal signs. Absent: distended, tenderness - Extremities Exam Extremities exam: Present: warm, radial pulses palpable and symmetrical. Absent : calf tenderness, cyanotic, pedal edema Additional comments: left foot dressing intact+ Internal Medicine: Result - Labs CBC & Chem 7: 04/18/17 04:49 04/19/17 05:04 Labs: BMP 04/19/17 05:04 Sodium 141 Potassium 3.7 Chloride 108 Carbon Dioxide 23 BUN 28 H Creatinine 1.89 H Glucose 168 H Calcium 8.0 L - ABG Interpretation ABG results: PT/INR, D-dimer PT 11.6 Seconds (9.4-12.1) 04/15/17 16:15 - VTE Documentation of Mechanical Device: Intermittent pneumatic compression device Consult Discharge Plan - Plan Referrals: Raoul Gaona DO [Primary Care Provider] -
[2017-04-19] MEDS: Acetaminophen 325 MG TABLET PO PRN (13:11)
[2017-04-19] MEDS ORDERED: *HR* Propofol 200 MG/20 ML VIAL IVP ONE ×2 (18:06→18:30)
[2017-04-19] MEDS ORDERED: *HR* FentaNYL (PF) 100 MCG/2 ML VIAL ONE (18:06)
[2017-04-19] MEDS ORDERED: Lidocaine -MPF 2% 2 ML VIAL ONE (18:07)
[2017-04-19] MEDS ORDERED: Bupivacaine/Clonidine Syringe 1 EACH SYRINGE ONE (18:09)
--- NOTE | 2017-04-19 18:32 | Anesthesia Evaluation PreOp ---
Date of Encounter: 04/19/17 Time of Encounter: 18:30 - Past History Planned Operation: I&D foot Cardiac History: [place], CHF, HTN, Hyperlipidemia, Cardiac Surgery, Cardiac Stent Pulmonary History: Denies Any Significant HX MEDICAL OFFICE SUPERVISOR History: Denies Any Significant HX Other Medical History: Renal (stage 3 renal insufficiency), Diabetes Type II Alcohol Use: none Drug use: none Medications and Allergies Furosemide [Lasix] 20 mg PO DAILY PRN 12/16/16 [History] Insulin ASPART [Novolog Flexpen] 2 - 10 units SQ TID 12/16/16 [History] Insulin Degludec [Tresiba Flextouch U-100] 80 unit SQ HS 12/16/16 [History] Clopidogrel [Plavix] 75 mg PO DAILY 01/02/17 [History] Docusate [Colace] 200 mg PO DAILY 01/02/17 [History] Finasteride [Proscar] 5 mg PO DAILY 01/02/17 [History] Fluticasone Propionate Nasal [Flonase] 100 mcg NS DAILY PRN 01/02/17 [History] Nitroglycerin [Nitrostat] 0.4 mg SL Q5M PRN 01/02/17 [History] Rosuvastatin [Crestor] 40 mg PO HS 01/02/17 [History] Sertraline [Zoloft] 100 mg PO DAILY 01/02/17 [History] carBAMazepine [Tegretol] 200 mg PO Q12H 01/02/17 [History] Isosorbide MONOnitrate (24 HR) [Imdur] 30 mg PO DAILY 01/21/17 [History] Omeprazole [PriLOSEC] 40 mg PO DAILY 01/21/17 [History] Ramipril [Altace] 5 mg PO DAILY 01/21/17 [History] Sotalol [Betapace] 80 mg PO DAILY 01/21/17 [History] Metoprolol XL (24 HR) Succ [Toprol Xl] 50 mg PO DAILY #30 01/22/17 [Rx] Aspirin Enteric Coated [Aspirin EC] 81 mg PO DAILY 03/14/17 [History] Glimepiride [Amaryl] 4 mg PO BID 04/16/17 [History] Saxagliptin HCl [Onglyza] 5 mg PO DAILY 04/16/17 [History] 3 Allergy/AdvReac Type Severity Reaction Status Date / Time No Known Allergies Allergy Verified 12/28/16 09:44 - Meds/Allergy Pre-op Review Medications Reviewed: Yes Allergies Reviewed: Yes Beta Blockers on Current Med List: Yes (0902) Anesthesia Results - Labs 04/18/17 04:49 04/19/17 05:04 - Imaging Additional studies: ECHO EF 40%,mild global dyskinesia Anesthesia Exam Selected Entries 04/19/17 14:38 Temperature 98.7 F Pulse Rate 75 Respiratory Rate 16 Blood Pressure 161/57 O2 Sat by Pulse Oximetry 95 Weight: 87 kg NPO (# of Hours): over 8 hours - HEENT Pupil (Motor): Pupils equal Mallampati: II Teeth: Normal Oral Opening: Greater than 3 - Cardiac Rhythm: Regular Murmur: None - Pulmonary Breath Sounds: bilateral Clear Respiratory Effort: Symmetrical Anesthesia Assess/Plan ASA Score: 3 Modified Vitor Scale for Level of Consciousness: Cooperative, oriented, and tranquil Anesthetic Plan: MAC Monitoring Plan: Standard Monitors Recovery Plan: Other
[2017-04-19] MEDS ORDERED: Vancomycin 1,000 MG VIAL ONE (18:38)
[2017-04-19] MEDS: Insulin LISPRO 300 UNITS/3 ML VIAL SQ SCH ×2 (21:12→21:59)
[2017-04-19] MEDS: Insulin DETEMIR 100 UNIT/ML X5UNITS SQ SCH (21:29)
[2017-04-20] MEDS: Ampicillin/Sulbactam 3,000 MG in 0.9 % Sodium Chloride Mini Bag 100 ML IVPB SCH ×2 (00:07→05:21)
[2017-04-20] MEDS: carBAMazepine 200 MG TABLET PO SCH ×2 (00:07→12:33)
[2017-04-20] MEDS: *HR* Heparin 5,000 UNIT/ML VIAL SQ SCH ×2 (05:22→18:52)
--- NOTE | 2017-04-20 07:52 | Operative Note ---
Date of procedure: 04/19/17 Pre-op diagnosis: left foot infection with osteomyelitis Post-op diagnosis: same Procedure: Irrigation and debridement with partial metatarsal resection and implantation of antibiotic beads with flap advancement, all left foot. Implants: Vancomycin impregnated Hydrocet [place] [facility] Anesthesia: MAC Surgeon: Guanakito Brandon Estimated blood loss (cc): 10 Specimen: Third metatarsal bone Condition: stable Disposition: PACU Procedure in Detail: The patient was administered IV antibiotics. The patient was transported to the operative room and placed on operating table. Following anesthesia the extremity was scrubbed prepped and draped in the usual aseptic fashion. A timeout was performed. An incision was made along the dorsal aspect of the third metatarsal and deepened through subcutaneous tissue with care taken to identify and retract all vital neurovascular structures. Site was inspected and there was noted to be little to no purulence and showed overall significant improvement. Due to the jagged edge on the third metatarsal bone, the bone was resected. The small fragment was sent to pathology. The dorsal wound was debrided. The wound measured approximately 4 cm in length and 1 cm in width and the debridement consisted of epidermis, dermis, subcutaneous tissue, tendon, fascia, bone. The attention was then directed to the ulceration on the plantar aspect of the foot. The plantar ulceration was then debrided as well, the debridement consisted of epidermis, dermis, subcutaneous tissue, tendon, fascia. The sites were then pulse irrigated. The sites were then packed with antibiotic beads. The skin flaps on the plantar and dorsal aspect of the foot were then advanced over the beads and a loose closure was performed. A dry sterile dressing was applied. The patient tolerated the procedure and anesthesia well and was transported to the recovery room with vital signs stable and vascular status intact to both feet. The patient will be readmitted to the floor per anesthesia. The patient will keep the dressings clean, dry, intact. The patient will likely be able to go home once IV antibiotics are set up. The patient will need daily dressing changes at home. The patient will need follow-up with me 1 week postoperatively. The patient will remain partially nonweightbearing.
[2017-04-20] MEDS: Insulin LISPRO 300 UNITS/3 ML VIAL SQ SCH ×3 (08:40→18:51)
[2017-04-20] MEDS: Insulin DETEMIR 100 UNIT/ML X5UNITS SQ SCH ×2 (08:42→20:21)
[2017-04-20] MEDS: Finasteride 5 MG TABLET PO SCH (08:42)
[2017-04-20] MEDS: Lisinopril 20 MG TABLET PO SCH (08:42)
[2017-04-20] MEDS: Isosorbide MONOnitrate (24 HR) 60 MG TAB.ER.24H PO SCH (08:42)
[2017-04-20] MEDS: Metoprolol XL (24 HR) Succ 25 MG TAB.ER.24H PO SCH (08:43)
[2017-04-20] MEDS: Lactobacillus 1 EACH CAP.SPRINK PO SCH (08:43)
[2017-04-20] MEDS: Aspirin Enteric Coated 81 MG Tablet PO SCH (08:43)
[2017-04-20] MEDS ORDERED: Lidocaine -MPF 1% 2 ML VIAL ID PRN (10:12)
--- NOTE | 2017-04-20 10:56 | Internal Med Progress Note ---
Date of Encounter: 04/20/17 Time of Encounter: 10:50 - Assessment and plan (1) Osteomyelitis Current Visit: Yes Status: Acute Assessment and plan: CT left foot shows osteomyelitis and subcutaneous gas in left 3rd phalanx and into 3rd and 4th metatarsals; 1/2 blood cultures grow GBS, serology positive for Gr B strep; intraoperative wound culture shows GB Strep; repeat blood cultures negative. Podiatry on board, s/p incision and drainage and irrigation and debridement with tarsal resection of 3rd phalanx and distal metatarsal- POD#4. Also underwent irrigation and debridement with partial metatarsal resection, antibiotic bead placement and flap advancement yesterday- POD#1. Continue local wound care per Podiatry. PT/OT consult pending. ID consult appreciated- antibiotics changed to IV Rocephin and PO Flagyl for anaerobic coverage, completed 5 days of IV antibiotics so far. Qualifiers: Osteomyelitis type: other acute Osteomyelitis location: foot Laterality: left Qualified Code(s): M86.172 - Other acute osteomyelitis, left ankle and foot (2) Diabetic ulcer of left foot Current Visit: Yes Status: Acute Assessment and plan: plan as above; Qualifiers: Diabetic foot ulcer location: midfoot Diabetes mellitus type: type 2 Non- pressure ulcer stage: unspecified non-pressure ulcer stage Qualified Code(s): E11.621 - Type 2 diabetes mellitus with foot ulcer; L97.429 - Non-pressure chronic ulcer of left heel and midfoot with unspecified severity; L97.429 - Non- pressure chronic ulcer of left heel and midfoot with unspecified severity; L97.429 - Non-pressure chronic ulcer of left heel and midfoot with unspecified severity; L97.429 - Non-pressure chronic ulcer of left heel and midfoot with unspecified severity (3) Depression Current Visit: Yes Status: Chronic Qualifiers: Depression Type: unspecified Qualified Code(s): F32.9 - Major depressive disorder, single episode, unspecified (4) Diabetes mellitus Current Visit: Yes Status: Chronic Assessment and plan: reports poorly controlled DM at home; blood sugars continue to be elevated; will increase basal and SSI; continue Accucheck blood glucose monitoring; diabetic diet; Qualifiers: Diabetes mellitus type: type 2 Diabetes mellitus complication status: with neurologic complications Diabetes mellitus complication detail: with polyneuropathy Diabetes mellitus intermission coordinator insulin use: with intermission coordinator use Qualified Code(s): E11.42 - Type 2 diabetes mellitus with diabetic polyneuropathy; Z79.4 - longterm (current) use of insulin (5) CAD (coronary artery disease) Current Visit: Yes Status: Chronic Qualifiers: Coronary Disease-Associated Artery/Lesion type: bypass graft [place] vs. transplanted heart: [place] heart Associated angina: without angina Qualified Code(s): I25.810 - Atherosclerosis of coronary artery bypass graft(s) without angina pectoris (6) CHF (congestive heart failure) Current Visit: Yes Status: Chronic Assessment and plan: Echocardiogram shows globally reduced EF around 40%; continue Imdur, ACEI, beta jayde; Qualifiers: Congestive heart failure type: combined Congestive heart failure chronicity : chronic Qualified Code(s): I50.42 - Chronic combined systolic (congestive) and diastolic (congestive) heart failure (7) CKD (chronic kidney disease) Current Visit: Yes Status: Chronic Assessment and plan: secondary to DM and HTN; serum creatinine stable, around baseline; continue to monitor closely; Qualifiers: Chronic kidney disease stage: stage 3 (moderate) Qualified Code(s): N18.3 - Chronic kidney disease, stage 3 (moderate) (8) Essential hypertension Current Visit: Yes Status: Chronic Assessment and plan: poorly controlled; will start PO Hydralazine and continue current meds; will use PRN IV Hydralazine for appropriate BP control; (9) Bacteremia Current Visit: Yes Status: Resolved Assessment and plan: resolved; continue IV antibiotics; - Subjective Interval history: Denies new complaints; had closure of operative wound on left foot yesterday; denies left foot pain, has not ambulated yet; BP and blood sugars noted to be high; no fever/chills, nausea, vomiting; - Constitutional Vitals: Temp Pulse Resp BP Pulse Ox 98.7 F 74 14 189/82 94 04/20/17 07:19 04/20/17 07:19 04/20/17 07:19 04/20/17 07:19 04/20/17 07:19 General appearance: Present: A&O X 3, answers questions appropriately - Respiratory Respiratory exam: Present: CTAB. Absent: accessory muscle use, rales, rhonchi, wheezes - Cardiovascular Cardiovascular exam: Present: RRR, +S1, +S2. Absent: diastolic murmur, gallop, rubs, systolic murmur - GI/Abdominal GI/Abdominal exam: Present: normal bowel sounds, soft, no peritoneal signs. Absent: distended, tenderness - Extremities Exam Extremities exam: Present: warm, radial pulses palpable and symmetrical. Absent : calf tenderness, cyanotic, pedal edema Additional comments: left foot in surgical dressing- dry and intact Internal Medicine: Result - Labs CBC & Chem 7: 04/18/17 04:49 04/19/17 05:04 - ABG Interpretation ABG results: PT/INR, D-dimer PT 11.6 Seconds (9.4-12.1) 04/15/17 16:15 - VTE Documentation of Mechanical Device: Intermittent pneumatic compression device Consult Discharge Plan - Plan Referrals: Raoul Gaona DO [Primary Care Provider] - Jasmin Cohen ENVIRONMENT COORDINATOR [Advanced Practice Nurse] - 05/01/17 8:40 am
[2017-04-20] MEDS: cefTRIAXone 2,000 MG in Water for inj. (sterile) 20 ML IVP SCH (12:31)
[2017-04-20] MEDS: metroNIDAZOLE 500 MG TABLET PO SCH ×3 (12:32→22:01)
--- NOTE | 2017-04-20 13:00 | Infectious Disease Consult ---
Date of Encounter: 04/20/17 Time of Encounter: 12:47 Assessment and Plan (1) Sepsis Status: Resolved Assessment and plan: The patient had two SIRS criteria. Likely secondary to bacteremia and osteomyelitis. Improved. WBC has normalized. The patient has been afebrile. Blood cultures drawn 04/15/17 were positive 2/2 sets for GBS. Repeat blood cultures drawn 04/17/17 are NGTD 2/2 sets. Qualifiers: Sepsis type: sepsis due to unspecified organism Qualified Code(s): A41.9 - Sepsis, unspecified organism (2) Bacteremia Status: Acute Assessment and plan: Causative organism GBS. Source likely left foot OM. Uncomplicated, but the patient will require a prolonged course of IV antibiotics due to osteomyelitis. Blood cultures drawn 04/15/17 were positive 2/2 sets for GBS. Repeat blood cultures drawn 04/17/17 are NGTD 2/2 sets. No endocarditis stigmata noted on exam. Discontinue Unasyn. Start Rocephin 2 grams IV daily. Duration of treatment depends on the clinical picture. Consult VAT for EPIV placement. (3) Osteomyelitis Status: Acute Assessment and plan: Causative organism GBS, but concern for anaerobes as well due to soft tissue gas. Location: Left foot. Secondary to left foot non-healing surgical wound infection. CT of the left foot showed subcutaneous gas over the 3rd and 4th MTP joint and osteomyelitis of the third phalanx. Podiatry consulted. Status post I & D with incision and debridement with tarsal resection of the proximal third phalanx and distal 3rd metatarsal of the left foot 04/16/[address] Brandon. Gross purulence noted intra-op. Culture positive for GBS as well. Status post irrigation and debridement with partial metatarsal resection and implantation of antibiotic beads with flap advancement of the left foot by Dr. Brandon. ESR>130 on admission. No CRP was checked. Discontinue Unasyn. Start Rocephin 2 grams IV daily. Start flagyl 500mg PO TID to cover for possible anaerobes. Wound care and activity restrictions per the podiatry team. Duration of treatment depends on the clinical picture, but likely 6 weeks of IV antibiotics. Consult VAT for EPIV placement. Will need weekly CBC, BUN/Cr, ESR, and CRP every Sunday for the duration of treatment. Will need weekly EPIV care per protocol. Follow up with ID 05/01/17 at 0840. Qualifiers: Osteomyelitis type: other acute Osteomyelitis location: foot Laterality: left Qualified Code(s): M86.172 - Other acute osteomyelitis, left ankle and foot (4) Diabetic foot infection Status: Acute Assessment and plan: Secondary to non-healing surgical wound. Wound care per the podiatry team. (5) Nausea & vomiting Status: Resolved Assessment and plan: Likely secondary to bacteremia. Resolved. Qualifiers: Vomiting type: unspecified Vomiting Intractability: non-intractable Qualified Code(s): R11.2 - Nausea with vomiting, unspecified (6) Thrombocytopenia Status: Acute (7) Diabetes mellitus Status: Chronic Assessment and plan: Uncontrolled. HgbA1C 10.3% in January 2017. Recommend aggressive glucose monitoring and control to promote wound healing and prevent re-infection. Management per the hospitalist team. Qualifiers: Diabetes mellitus type: type 2 Diabetes mellitus complication status: with neurologic complications Diabetes mellitus complication detail: with polyneuropathy Diabetes mellitus oil heaterman insulin use: with oil heaterman use Qualified Code(s): E11.42 - Type 2 diabetes mellitus with diabetic polyneuropathy; Z79.4 - FPC (current) use of insulin (8) CAD (coronary artery disease) Status: Chronic Qualifiers: Coronary Disease-Associated Artery/Lesion type: bypass graft [place] vs. transplanted heart: [place] heart Associated angina: without angina Qualified Code(s): I25.810 - Atherosclerosis of coronary artery bypass graft(s) without angina pectoris (9) CHF (congestive heart failure) Status: Chronic Qualifiers: Congestive heart failure type: combined Congestive heart failure chronicity : chronic Qualified Code(s): I50.42 - Chronic combined systolic (congestive) and diastolic (congestive) heart failure (10) CKD (chronic kidney disease) Status: Chronic Assessment and plan: Monitor renal function closely. Avoid nephrotoxins as able. Qualifiers: Chronic kidney disease stage: stage 3 (moderate) Qualified Code(s): N18.3 - Chronic kidney disease, stage 3 (moderate) Infectious Disease HPI - Data of Consult Patient: known to practice within the last 3 years Consult date: 04/20/17 Requesting Physician: Gisela Jenkins MD Primary Care Provider: Raoul Gaona - Consult Narrative Reason for consult: Osteomyelitis left foot History of present illness: Mr. Anguiano is a 72 year old male past medical history of CAD status post CABG, malignant melanoma, diabetes, hyperlipidemia, hypertension, and chronic kidney disease. The patient was admitted to the hospital and for nausea and vomiting and left foot infection. We are consulted April 20 for antibiotic recommendations regarding bacteremia and osteomyelitis. Briefly, the patient's a 72-year-old male with past medical history as stated above. The patient is well-known to the infectious disease service as we have been following him during a previous hospitalization in an outpatient setting for infected left foot. Back in November, the patient sustained an ulcer to the plantar aspect of the left foot of unknown etiology, but was following with a risk intern in [place]. The ulcer continued to regress and eventually became infected and resulted in osteomyelitis. While being treated, he developed an abscess over the left third toe and underwent amputation with metatarsal resection. The patient was treated with a 6 week course of IV antibiotics and doing well. He does report the ulcer was not healing, but was looking good and he was following with Dr. Mandel in the wound clinic. He states that 3 days prior to admission, he began to have increasing drainage from the wound that was foul-smelling and started having nausea and vomiting and generalized fatigue and malaise. Upon arrival to the ER, the patient was febrile and hypertensive. He had an elevated ESR greater than 130. Blood cultures were obtained 2 sets as well as a wound culture. Chest x-ray was negative. Foot x- ray showed some soft tissue swelling with soft tissue air, but no osteomyelitis. The patient also had a CT the abdomen and pelvis to evaluate for any intra-abdominal etiology for his nausea and vomiting, but it just showed some cholelithiasis and nephrolithiasis as well as diffuse bladder wall thickening. Urinalysis was negative. He was started on empiric IV antibiotics and admitted to the hospital. Since admission, the patient's undergone a CT of the foot that showed subcutaneous gas as well as osteomyelitis of the third phalanx. Podiatry was consulted and took the patient to the operating room on April 16 and completed an I&D with irrigation and debridement with partial resection of the proximal third phalanx and distal third metatarsal of the left foot. Purulence was noted intra-op. Cultures are positive for GBS. He was taken back to the OR yesterday for staged closure. Blood cultures obtained on the day of admission were positive 2/2 sets for GBS as well. Repeat blood cultures summerw 04/17/17 are NGTD. Currently, the patient is on IV Unasyn. We have been asked to evaluate and make further recommendations. My exam today, the patient states that overall he feels much better. He reported generalized fatigue and malaise with nausea and vomiting and diarrhea prior to admission. He denied any increased pain, but reports that the wound began to regress and started having some bowel smelling discharge. He denied any erythema or streaking up the leg. He denies any known fevers or chills or rigors. He denied any chest pain, shortness of breath, or cough. He states he did not have much of an appetite. He denied any abdominal pain or urinary complaints. He denies any oral thrush or new skin lesions. He states he is feeling much better at this time. He is hoping to be discharged later today. CC: Gisela Jenkins MD Past Med Surg Social Fam HX - Past Medical History Attestation: Yes The following information was validated with the patient. Source: patient, old records reviewed, nursing notes reviewed Medical history: cancer, CHF, coronary artery disease, diabetes, hyperlipidemia , hypertension, malignancy, myocardial infarction, renal disease Psychiatric history: depression - Past Surgical History Surgical History: angioplasty/stent, cataract, coronary bypass (CABG), orthopedic, other - Social History Smoking Status: Never smoker Smokeless Tobacco Status: No Alcohol use: none Drug use: none Occupational status: retired Current living situation: Home, With Family Activity Level: Uses cane/walker Recent Out of Country Travel Within the Last 8 Weeks: No Exposure or Possible Exposure to Illness During Travel: No - Family History Father Living Status: Cause of : heart attack Hx Family Cardiac Disorders: Yes Mother Living Status: Cause of : liver cancer Hx Family Cardiac Disorders: Yes Hx Family Cancer: Yes (liver cancer) Infectious Disease-CN:Meds Furosemide [Lasix] 20 mg PO DAILY PRN 12/16/16 [History] Insulin ASPART [Novolog Flexpen] 2 - 10 units SQ TID 12/16/16 [History] Insulin Degludec [Tresiba Flextouch U-100] 80 unit SQ HS 12/16/16 [History] Clopidogrel [Plavix] 75 mg PO DAILY 01/02/17 [History] Docusate [Colace] 200 mg PO DAILY 01/02/17 [History] Finasteride [Proscar] 5 mg PO DAILY 01/02/17 [History] Fluticasone Propionate Nasal [Flonase] 100 mcg NS DAILY PRN 01/02/17 [History] Nitroglycerin [Nitrostat] 0.4 mg SL Q5M PRN 01/02/17 [History] Rosuvastatin [Crestor] 40 mg PO HS 01/02/17 [History] Sertraline [Zoloft] 100 mg PO DAILY 01/02/17 [History] carBAMazepine [Tegretol] 200 mg PO Q12H 01/02/17 [History] Isosorbide MONOnitrate (24 HR) [Imdur] 30 mg PO DAILY 01/21/17 [History] Omeprazole [PriLOSEC] 40 mg PO DAILY 01/21/17 [History] Ramipril [Altace] 5 mg PO DAILY 01/21/17 [History] Sotalol [Betapace] 80 mg PO DAILY 01/21/17 [History] Metoprolol XL (24 HR) Succ [Toprol Xl] 50 mg PO DAILY #30 01/22/17 [Rx] Aspirin Enteric Coated [Aspirin EC] 81 mg PO DAILY 03/14/17 [History] Glimepiride [Amaryl] 4 mg PO BID 04/16/17 [History] Saxagliptin HCl [Onglyza] 5 mg PO DAILY 04/16/17 [History] 3 Allergy/AdvReac Type Severity Reaction Status Date / Time No Known Allergies Allergy Verified 12/28/16 09:44 All systems: reviewed and no additional remarkable complaints except as stated Exam - Constitutional Vitals: Temp Pulse Resp BP Pulse Ox 99.0 F 78 16 173/79 96 04/20/17 11:19 04/20/17 11:19 04/20/17 11:19 04/20/17 11:19 04/20/17 11:19 General appearance: average body habitus, cooperative, no acute distress - Head Head exam: Present: atraumatic, normal inspection, normocephalic - Eye Eye exam: Present: EOMI, normal appearance, PERRL Pupils: Present: normal accommodation - ENT ENT exam: Present: mucous membranes moist - Neck Neck exam: Present: normal inspection - Respiratory Respiratory exam: Present: CTAB. Absent: rales, respiratory distress, rhonchi, wheezes - Cardiovascular Cardiovascular exam: Present: RRR, +S1, +S2 - GI/Abdominal GI/Abdominal exam: Present: normal bowel sounds, soft. Absent: distended, tenderness - Extremities Exam Extremities exam: Present: normal inspection. Absent: joint swelling, pedal edema, tenderness Additional comments: Left foot dressing C/D/I. - Neurological Exam Neurological exam: Present: alert, oriented X3, no focal deficits - Psychiatric Psychiatric exam: Present: normal affect, normal mood - Skin Skin exam: Present: dry, intact, normal color, warm Additional comments: No endocarditis stigmata noted. Infectious Disease CN: Results - Labs CBC & Chem 7: 04/18/17 04:49 04/19/17 05:04 Cultures: Cultures 04/16/17 19:14 Anaerobic Culture - Preliminary Left Foot 04/17/17 09:14 Blood Culture - Preliminary Peripheral Venipuncture No growth. 04/17/17 09:09 Blood Culture - Preliminary Peripheral Venipuncture No growth. 04/16/17 19:14 Wound Culture - Final Left Foot Strep agalactiae - (Group B) 04/16/17 19:20 Surgical Biopsy Culture - Final Left Foot Strep agalactiae - (Group B) Serology: Serology 04/15/17 04/15/17 Range/Units 17:55 16:15 Urine Color Yellow (Yellow) Urine Clarity Cloudy A (Clear) Urine pH 6.5 (5.0-8.0) pH Units Ur Specific [place] 1.027 H (1.010-1.025) Urine Protein >=1000 H (Neg-Trace) mg/dL Urine Glucose (UA) 500 H (Normal) mg/dL Urine Ketones Negative (Negative) mg/dL Urine Blood Moderate H (Negative) Urine Nitrite Negative (Negative) Urine Bilirubin Negative (Negative) Urine Urobilinogen Normal (Normal) mg/dL Ur Leukocyte Esterase Negative (Negative) Urine Microscopic RBC 0-3 (0-3) per hpf Urine Microscopic WBC 5-15 H (0-3) per hpf Ur Squamous Epith Cells Many H (None-Few) per lpf Urine Bacteria None Seen (None-Few) per hpf Hyaline Casts Few (None-Few) per lpf Ur Culture Indicated? NO (NO) A. baumannii (PCR) Not Detected (Not Detect) Chantal albicans (PCR) Not Detected (Not Detect) C. glabrata (PCR) Not Detected (Not Detect) C. krusei (PCR) Not Detected (Not Detect) C. parapsilosis (PCR) Not Detected (Not Detect) C. tropicalis (PCR) Not Detected (Not Detect) Enterobacteriac sp PCR Not Detected (Not Detect) E. cloacae complex PCR Not Detected (Not Detect) Enterococcus sp PCR Not Detected (Not Detect) E. coli (PCR) Not Detected (Not Detect) H. influenzae (PCR) Not Detected (Not Detect) Klebsiella oxytoca PCR Not Detected (Not Detect) Klebsiella pneumoniae Not Detected (Not Detect) List. monocytogenes PCR Not Detected (Not Detect) N. meningitidis (PCR) Not Detected (Not Detect) Proteus species (PCR) Not Detected (Not Detect) Serratia marcescens PCR Not Detected (Not Detect) Staphylococcus sp PCR Not Detected (Not Detect) Staph aureus (PCR) Not Detected (Not Detect) mecA-Methicil Res Gene N/A (Not Detect) Streptococcus sp PCR DETECTED A (Not Detect) Group A Strep DNA Not Detected (Not Detect) Group B Strep (PCR) DETECTED A (Not Detect) Strep pneumoniae (PCR) Not Detected (Not Detect) P. aeruginosa (PCR) Not Detected (Not Detect) Quirino/B-Vanco Res Genes N/A (Not Detect) KPC (blaKPC) Detect PCR N/A (Not Detect) - VTE Documentation of Mechanical Device: Intermittent pneumatic compression device Consult Discharge Plan - Plan Referrals: Raoul Gaona DO [Primary Care Provider] - Jasmin Cohen CNP [Advanced Practice Nurse] - 05/01/17 8:40 am
[2017-04-20] MEDS: hydrALAZINE 25 MG TABLET PO SCH (18:52)
[2017-04-20] MEDS ORDERED: Insulin LISPRO 300 UNITS/3 ML VIAL SQ SCH (21:00)
[2017-04-21] MEDS: carBAMazepine 200 MG TABLET PO SCH ×2 (00:56→12:20)
[2017-04-21] MEDS: hydrALAZINE 25 MG TABLET PO SCH ×3 (00:56→14:21)
[2017-04-21] MEDS: Acetaminophen 325 MG TABLET PO PRN (00:59)
[2017-04-21] MEDS: *HR* Heparin 5,000 UNIT/ML VIAL SQ SCH (04:28)
[2017-04-21] MEDS ORDERED: *HR* Labetalol 20 MG/4 ML SYRINGE IVP PRN (05:37)
[2017-04-21] MEDS: Lactobacillus 1 EACH CAP.SPRINK PO SCH (08:15)
[2017-04-21] MEDS: Lisinopril 20 MG TABLET PO SCH (08:15)
[2017-04-21] MEDS: Metoprolol XL (24 HR) Succ 25 MG TAB.ER.24H PO SCH (08:15)
[2017-04-21] MEDS: Isosorbide MONOnitrate (24 HR) 60 MG TAB.ER.24H PO SCH (08:16)
[2017-04-21] MEDS: Insulin DETEMIR 100 UNIT/ML X5UNITS SQ SCH (08:16)
[2017-04-21] MEDS: Aspirin Enteric Coated 81 MG Tablet PO SCH (08:16)
[2017-04-21] MEDS: Finasteride 5 MG TABLET PO SCH (08:16)
[2017-04-21] MEDS: metroNIDAZOLE 500 MG TABLET PO SCH ×2 (08:16→14:20)
[2017-04-21] MEDS: Insulin LISPRO 300 UNITS/3 ML VIAL SQ SCH ×2 (08:17→12:21)
[2017-04-21 10:43] VITALS: BP 177/65
--- NOTE | 2017-04-21 11:47 | Discharge Summary ---
Date of Encounter: 04/21/17 Time of Encounter: 11:42 - Discharge Diagnosis (1) Osteomyelitis Priority: Primary Status: Acute Qualifiers: Osteomyelitis type: other acute Osteomyelitis location: foot Laterality: left Qualified Code(s): M86.172 - Other acute osteomyelitis, left ankle and foot (2) Diabetic ulcer of left foot Priority: Primary Status: Acute Qualifiers: Diabetic foot ulcer location: midfoot Diabetes mellitus type: type 2 Non- pressure ulcer stage: unspecified non-pressure ulcer stage Qualified Code(s): E11.621 - Type 2 diabetes mellitus with foot ulcer; L97.429 - Non-pressure chronic ulcer of left heel and midfoot with unspecified severity; L97.429 - Non- pressure chronic ulcer of left heel and midfoot with unspecified severity; L97.429 - Non-pressure chronic ulcer of left heel and midfoot with unspecified severity; L97.429 - Non-pressure chronic ulcer of left heel and midfoot with unspecified severity (3) Depression Priority: Secondary Status: Chronic Qualifiers: Depression Type: unspecified Qualified Code(s): F32.9 - Major depressive disorder, single episode, unspecified (4) Diabetes mellitus Priority: Secondary Status: Chronic Qualifiers: Diabetes mellitus type: type 2 Diabetes mellitus complication status: with neurologic complications Diabetes mellitus complication detail: with polyneuropathy Diabetes mellitus senior living insulin use: 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 transplanted heart: [place] heart Associated angina: without angina Qualified Code(s): I25.810 - Atherosclerosis of coronary artery bypass graft(s) without angina pectoris (6) CHF (congestive heart failure) Priority: Secondary Status: Chronic Qualifiers: Congestive heart failure type: combined Congestive heart failure chronicity : chronic Qualified Code(s): I50.42 - Chronic combined systolic (congestive) and diastolic (congestive) heart failure (7) CKD (chronic kidney disease) Priority: Secondary Status: Chronic Qualifiers: Chronic kidney disease stage: stage 3 (moderate) Qualified Code(s): N18.3 - Chronic kidney disease, stage 3 (moderate) (8) Essential hypertension Priority: Secondary Status: Chronic (9) Bacteremia Priority: Primary Status: Resolved - Discharge Medications Prescriptions: hydrALAZINE [HydrALAZINE] 25 mg PO Q8HR #60 tablet cefTRIAXone [Rocephin] 2,000 mg IVPB DAILY #28 vial Lactobacillus [Culturelle] 2 each PO DAILY #60 cap.sprink metroNIDAZOLE [Flagyl] 500 mg PO TID #84 tablet Home Medications: Furosemide [Lasix] 20 mg PO DAILY PRN 12/16/16 [History] Insulin ASPART [Novolog Flexpen] 2 - 10 units SQ TID 12/16/16 [History] Insulin Degludec [Tresiba Flextouch U-100] 80 unit SQ HS 12/16/16 [History] Clopidogrel [Plavix] 75 mg PO DAILY 01/02/17 [History] Docusate [Colace] 200 mg PO DAILY 01/02/17 [History] Finasteride [Proscar] 5 mg PO DAILY 01/02/17 [History] Fluticasone Propionate Nasal [Flonase] 100 mcg NS DAILY PRN 01/02/17 [History] Nitroglycerin [Nitrostat] 0.4 mg SL Q5M PRN 01/02/17 [History] Rosuvastatin [Crestor] 40 mg PO HS 01/02/17 [History] Sertraline [Zoloft] 100 mg PO DAILY 01/02/17 [History] carBAMazepine [Tegretol] 200 mg PO Q12H 01/02/17 [History] Omeprazole [PriLOSEC] 40 mg PO DAILY 01/21/17 [History] Ramipril [Altace] 5 mg PO DAILY 01/21/17 [History] Metoprolol XL (24 HR) Succ [Toprol Xl] 50 mg PO DAILY #30 01/22/17 [Rx] Aspirin Enteric Coated [Aspirin EC] 81 mg PO DAILY 03/14/17 [History] Glimepiride [Amaryl] 4 mg PO BID 04/16/17 [History] Saxagliptin HCl [Onglyza] 5 mg PO DAILY 04/16/17 [History] Isosorbide MONOnitrate (24 HR) [Imdur] 60 mg PO DAILY #30 04/21/17 [Rx] Lactobacillus [Culturelle] 2 each PO DAILY #60 cap.sprink 04/21/17 [Rx] cefTRIAXone [Rocephin] 2,000 mg IVPB DAILY #28 vial 04/21/17 [Rx] hydrALAZINE [HydrALAZINE] 25 mg PO Q8HR #60 tablet 04/21/17 [Rx] metroNIDAZOLE [Flagyl] 500 mg PO TID #84 tablet 04/21/17 [Rx] Allergies/Adverse Reactions: 3 Allergy/AdvReac Type Severity Reaction Status Date / Time No Known Allergies Allergy Verified 12/28/16 09:44 Date of admission: 04/15/17 19:52 Primary care physician: Raoul Gaona Consults: 04/15/17 21:09 Consult to Cardiology [CONS] Routine Comment: Consulting Provider: Cardiology Radha Reason for Consult: Cardiac clearance Time Notified: 21:10 Call Completed: Yes 04/16/17 13:16 Consult to Tire Care Manager [CONS] Routine Reason for SW Consult: possible placement, infusion needs on DC 04/17/17 10:24 Consult to Infectious Diseases [CONS] Routine Consulting Provider: Infectious Disease [place] Reason for Consult: Left diabetic foot ulcer s/p amputation of 3rd toe and disal metatarsal Call Completed: No 04/20/17 10:12 Consult to Invasive Line Access Team [CONS] Routine 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 IV Rocephin Line Type: EPIV PICC line indications: intermediate school teacher Med/Antibiotic Time Notified: 10:12 Call Completed: Yes Discharging clinician: Gisela Jenkins Anticipated date of discharge: 04/21/17 - Patient Status Disposition: Home Health Service Condition: Good Functional capacity at discharge: independent ambulation Overall status at discharge: patient is progressing back to baseline - Discharge Instructions Instructions: Heart Failure (DC), Diabetes Mellitus Type 2 in Adults (DC) Follow Up With: Raoul Gaona DO [Primary Care Provider] - Guanakito Brandon DPM [Partnered Physician] - Jasmin Cohen CHEESE SUPERVISOR [Advanced Practice Nurse] - 05/01/17 8:40 am Additional Instructions: F/up with Podiatry in 1 week F/up with PCP in 1-2 weeks Minimize weight to the foot. Daily dressing changes. Use adaptic 4x4's, kerlix, and shana for the dressing changes. Follow up in my clinic in one week. - Diet and Activity Activity: resume usual activities as tolerated Diet: diabetic diet, low fat, low cholesterol, low salt diet, other (renal diet) Hospital course: Mr. Anguiano is a 72 year old male with the above medical problems who was admitted with acute on chronic left foot ulcer and pain. CT left foot showed soft tissue gas surrounding the 3rd and 4th metatarsophalangeal joints and involving the soft tissues of the 3rd toe with focal erosion involving the base of the proximal 3rd phalanx most compatible with osteomyelitis given the adjacent soft tissue changes. He was started on broad-spectrum IV antibiotics-vancomycin and Zosyn. Podiatry was consulted and patient underwent Incision and drainage/irrigation and debridement with tarsal resection of proximal third phalanx and distal third metatarsal. One out of 2 initial blood cultures, initial wound culture and intraoperative wound culture eventually grew group B Streptococcus and patient's antibiotics were changed to IV Unasyn. Repeat blood cultures remained negative. Patient subsequently underwent Irrigation and debridement with partial metatarsal resection and implantation of antibiotic beads with flap advancement , all left foot. Infectious diseases was consulted and recommended to change antibiotics to IV Rocephin. Patient will likely require long-term IV antibiotics, for 4-6 weeks. He is currently medically stable for discharge home with home health services and IV infusion of antibiotics. He will follow up with podiatry and infectious disease services as outpatient. He was noted to have uncontrolled hypertension and diabetes while in the hospital and he was started on hydralazine and insulin was titrated up and blood pressure and blood sugars were gradually better controlled. - Time Spent with Patient Total time spent providing and/or coordinating discharge services: Greater than 30 minutes (45 min) - Constitutional Vitals: Temp Pulse Resp BP Pulse Ox 98.4 F 81 18 177/65 94 04/21/17 10:39 04/21/17 10:39 04/21/17 10:39 04/21/17 10:39 04/21/17 10:39 General appearance: Present: A&O X 3, answers questions appropriately - Cardiovascular Cardiovascular exam: Present: RRR, +S1, +S2. Absent: diastolic murmur, gallop, rubs, systolic murmur - VTE Documentation of Mechanical Device: Intermittent pneumatic compression device
--- NOTE | 2017-04-21 11:50 | Physician Discharge Referral ---
Home Health/Hosp Referral Info Transfer to: Home Health Attending Provider: Gisela Jenkins Provider in Charge Post Discharge: PCP - Diagnosis (1) Osteomyelitis Priority: Primary Status: Acute (2) Diabetic ulcer of left foot Priority: Primary Status: Acute (3) Depression Priority: Secondary Status: Chronic (4) Diabetes mellitus Priority: Secondary Status: Chronic (5) CAD (coronary artery disease) Priority: Secondary Status: Chronic (6) CHF (congestive heart failure) Priority: Secondary Status: Chronic (7) CKD (chronic kidney disease) Priority: Secondary Status: Chronic (8) Essential hypertension Priority: Secondary Status: Chronic (9) Bacteremia Priority: Primary Status: Resolved - Respiratory Orders Smoking Cessation: Smoking cessation has been advised. For more information, call the [employer] Tobacco Quit Line at 9-607-UHPN-NOW. - Diet/Nutrition Diet/Nutrition Orders: Renal, Cardiac, No Concentrated Sweets (diabetic) - Activity Activity Orders: Ambulate - Services Needed Following services are medically necessary services: Nursing, Home Infusion - Transfer Medications Prescriptions: hydrALAZINE [HydrALAZINE] 25 mg PO Q8HR #60 tablet cefTRIAXone [Rocephin] 2,000 mg IVPB DAILY #28 vial Lactobacillus [Culturelle] 2 each PO DAILY #60 cap.sprink metroNIDAZOLE [Flagyl] 500 mg PO TID #84 tablet Home Medications: Furosemide [Lasix] 20 mg PO DAILY PRN 12/16/16 [History] Insulin ASPART [Novolog Flexpen] 2 - 10 units SQ TID 12/16/16 [History] Insulin Degludec [Tresiba Flextouch U-100] 80 unit SQ HS 12/16/16 [History] Clopidogrel [Plavix] 75 mg PO DAILY 01/02/17 [History] Docusate [Colace] 200 mg PO DAILY 01/02/17 [History] Finasteride [Proscar] 5 mg PO DAILY 01/02/17 [History] Fluticasone Propionate Nasal [Flonase] 100 mcg NS DAILY PRN 01/02/17 [History] Nitroglycerin [Nitrostat] 0.4 mg SL Q5M PRN 01/02/17 [History] Rosuvastatin [Crestor] 40 mg PO HS 01/02/17 [History] Sertraline [Zoloft] 100 mg PO DAILY 01/02/17 [History] carBAMazepine [Tegretol] 200 mg PO Q12H 01/02/17 [History] Omeprazole [PriLOSEC] 40 mg PO DAILY 01/21/17 [History] Ramipril [Altace] 5 mg PO DAILY 01/21/17 [History] Metoprolol XL (24 HR) Succ [Toprol Xl] 50 mg PO DAILY #30 01/22/17 [Rx] Aspirin Enteric Coated [Aspirin EC] 81 mg PO DAILY 03/14/17 [History] Glimepiride [Amaryl] 4 mg PO BID 04/16/17 [History] Saxagliptin HCl [Onglyza] 5 mg PO DAILY 04/16/17 [History] Isosorbide MONOnitrate (24 HR) [Imdur] 60 mg PO DAILY #30 04/21/17 [Rx] Lactobacillus [Culturelle] 2 each PO DAILY #60 cap.sprink 04/21/17 [Rx] cefTRIAXone [Rocephin] 2,000 mg IVPB DAILY #28 vial 04/21/17 [Rx] hydrALAZINE [HydrALAZINE] 25 mg PO Q8HR #60 tablet 04/21/17 [Rx] metroNIDAZOLE [Flagyl] 500 mg PO TID #84 tablet 04/21/17 [Rx] Allergies/Adverse Reactions: 3 Allergy/AdvReac Type Severity Reaction Status Date / Time No Known Allergies Allergy Verified 12/28/16 09:44 Certification: Further, I certify that my clinical findings support that this patient is homebound (i.e. absences from home require considerable and taxing effort and are for medical reasons or amish services or infrequently or short duration when for other reasons) because: Homebound Reason: Post-surgery restriction and or conditions limit ability to leave home, Leaving home requires considerable and taxing effort due to condition Attestation: My signature below is to certify that this patient is under my care and that I, or nurse practitioner, or a physician's diver assistant working with me, has a face-to -face encounter with this patient.
[2017-04-21] MEDS: cefTRIAXone 2,000 MG in Water for inj. (sterile) 20 ML IVP SCH (12:20)
--- NOTE | 2017-04-21 13:01 | Podiatry Progress Note ---
Date of Encounter: 04/21/17 Time of Encounter: 12:58 - Assessment and Plan (1) Diabetic ulcer of left foot Current Visit: Yes Status: Acute OK for discharge. Minimize weight to the foot. daily dressing changes. Use adaptic 4x4's, kerlix, and shana for the dressing changes. Follow up in my clinic in one week. Qualifiers: Diabetic foot ulcer location: midfoot Diabetes mellitus type: type 2 Non- pressure ulcer stage: unspecified non-pressure ulcer stage Qualified Code(s): E11.621 - Type 2 diabetes mellitus with foot ulcer; L97.429 - Non-pressure chronic ulcer of left heel and midfoot with unspecified severity; L97.429 - Non- pressure chronic ulcer of left heel and midfoot with unspecified severity; L97.429 - Non-pressure chronic ulcer of left heel and midfoot with unspecified severity; L97.429 - Non-pressure chronic ulcer of left heel and midfoot with unspecified severity Subjective Principal diagnosis: osteomyelitis in foot Interval history: Patient relates improvement and denies any new complaints. Objective - Vital Signs Vital Signs: Vital Signs Temp Pulse Resp BP Pulse Ox 04/21/17 10:39 98.4 F 81 18 177/65 94 04/21/17 07:10 98.7 F 77 18 159/70 95 04/21/17 05:33 98.0 F 78 16 154/87 98 04/21/17 03:47 98.6 F 72 14 182/86 98 04/21/17 00:37 98.8 F 73 14 151/71 96 04/20/17 18:55 98.7 F 74 14 177/81 95 04/20/17 15:44 99.0 F 74 16 161/65 96 Intake and Output 04/20/17 04/21/17 04/21/17 23:59 07:59 15:59 Intake Total 540 / 540 0 / 0 270 / 270 Output Total 0 / 0 Balance 540 / 540 0 / 0 269 / 269 Intake: Oral 540 / 540 0 / 0 270 / 270 Output: Urine 0 / 0 Urine/Stool Mix Other: Meal Dinner Breakfast Percent of Meal Consumed 0% 50% # Voids 1 1 2 Weight 86.863 kg Blood Glucose* 185 147 128 Patient Weight 04/21/17 23:59 Weight 86.863 kg - Exam Exam: Sutures intact, mild serous drainage consistent with procedure performed. CFT intact. No new open lesions. - Lab Result Diagrams: 04/18/17 04:49 04/19/17 05:04 Labs: Abnormal lab results RBC 3.37 M/mcL (4.19-5.50) L 04/18/17 04:49 Hgb 10.1 g/dL (12.9-16.9) L 04/18/17 04:49 Hct 29.8 % (37.5-50.1) L 04/18/17 04:49 Nucleated RBCs/100 WBC 0.4 /100 WBC (0) H 04/17/17 06:33 ESR >= 130 mm/hr (0-10) H 04/15/17 16:15 BUN 28 mg/dL (8-26) H 04/19/17 05:04 Creatinine 1.89 mg/dL (0.72-1.25) H 04/19/17 05:04 Est GFR ( Amer) 43 (> 60) L 04/19/17 05:04 Est GFR (Non-Af Amer) 35 (> 60) L 04/19/17 05:04 Glucose 168 mg/dL (70-99) H 04/19/17 05:04 POC Glucose 128 (58-89) H 04/21/17 11:22 Calculated Osmolality 301 (280-300) H 04/19/17 05:04 Calcium 8.0 mg/dL (8.6-10.8) L 04/19/17 05:04 Phosphorus 2.2 mg/dL (2.3-4.7) L 04/15/17 16:15 Troponin I 0.04 ng/mL (0-0.03) H* 04/16/17 09:20 B-Natriuretic Peptide 193 pg/mL (0-100) H 04/15/17 16:15 Albumin 2.4 g/dL (3.5-5.0) L 04/15/17 16:15 Globulin 4.9 g/dL (2.4-3.5) H 04/15/17 16:15 Albumin/Globulin Ratio 0.5 (1.1-2.2) L 04/15/17 16:15 Urine Clarity Cloudy (Clear) A 04/15/17 17:55 Ur Specific [place] 1.027 (1.010-1.025) H 04/15/17 17:55 Urine Protein >=1000 mg/dL (Neg-Trace) H 04/15/17 17:55 Urine Glucose (UA) 500 mg/dL (Normal) H 04/15/17 17:55 Urine Blood Moderate (Negative) H 04/15/17 17:55 Urine Microscopic WBC 5-15 per hpf (0-3) H 04/15/17 17:55 Ur Squamous Epith Cells Many per lpf (None-Few) H 04/15/17 17:55 Streptococcus sp PCR DETECTED (Not Detect) A 04/15/17 16:15 Group B Strep (PCR) DETECTED (Not Detect) A 04/15/17 16:15 Microbiology, Last 48 Hours 04/16/17 19:14 Anaerobic Culture - Preliminary Left Foot - VTE Documentation of Mechanical Device: Intermittent pneumatic compression device Consult Discharge Plan - Plan Additional Instructions: F/up with Podiatry in 1 week F/up with PCP in 1-2 weeks Minimize weight to the foot. Daily dressing changes. Use adaptic 4x4's, kerlix, and shana for the dressing changes. Follow up in my clinic in one week. Referrals: Raoul Gaona DO [Primary Care Provider] - Jasmin Cohen CNP [Advanced Practice Nurse] - 05/01/17 8:40 am Prescriptions: hydrALAZINE [HydrALAZINE] 25 mg PO Q8HR #60 tablet cefTRIAXone [Rocephin] 2,000 mg IVPB DAILY #28 vial Lactobacillus [Culturelle] 2 each PO DAILY #60 cap.sprink metroNIDAZOLE [Flagyl] 500 mg PO TID #84 tablet
== END 2017-04-21 14:30 | disposition home health service (06) | DRG 617 ==
LOC: 3ANU 16:07 → EMEROO 16:07 → 3ANU 19:17 → SUATTDRO 19:52
PROVIDERS: ADMIT Hospitalist; ATTEND Internal Medicine

== ENCOUNTER 2017-09-07 11:15 | Inpatient (IN) ==
[2017-09-07] MEDS ORDERED: 0.9 % Sodium Chloride 1,000 ML IVC ONE (11:23)
[2017-09-07] MEDS ORDERED: Pantoprazole 80 MG in 0.9 % Sodium Chloride 50 ML IVPB ONE (11:23)
[2017-09-07 11:53] LABS: Prothrombin Time 11.1 Seconds (9.4-12.1)
[2017-09-07 11:56] LABS: Activated Partial Thrombo Time 25.6 Seconds (26.0-36.0)
[2017-09-07 11:57] LABS: Basophils % 0.3 %; Eosinophils # 0.1 K/mcL (0.0-0.6); Eosinophils % 0.6 %; Hematocrit 32.5 % (37.5-50.1); Hemoglobin 10.8 g/dL (12.9-16.9); Immature Granulocytes % 0.3 % (0-4); Lymphocytes # 1.3 K/mcL (0.6-4.6); Lymphocytes % 12.4 %; Mean Corpuscular HGB Conc 33.2 g/dL (31.6-35.5); Mean Corpuscular Hemoglobin 30.2 pg (28.0-33.3); Mean Corpuscular Volume 90.8 fL (83.0-100.0); Mean Platelet Volume 10.5 fL (9.4-12.4); Monocytes # 0.7 K/mcL (0.0-1.3); Monocytes % 6.5 %; Neutrophils # 8.1 K/mcL (1.6-8.9); Platelet Count 215 K/mcL (140-400); Red Blood Count 3.58 M/mcL (4.19-5.50); Red Cell Distribution Width 12.4 % (11.5-14.5); Segmented Neutrophils % 79.9 %
--- NOTE | 2017-09-07 12:07 | Emergency Department Note ---
Disposition Clinical Impression: Hematochezia, GI bleed, Anemia, Colitis Disposition: Admitted As Inpatient Condition: Fair Referrals: Raoul Gaona DO [Primary Care Provider] - Forms: ED Satisfaction Letter Time of Disposition: 14:38 GI Bleed HPI - General Chief complaint: ED GI Bleed Stated complaint: Rectal bleeding Time Seen by Provider: 09/07/17 11:22 Source: EMS Limitations: no limitations Nursing Notes Reviewed: Yes Vital Signs Reviewed: Yes - History of Present Illness HPI Narrative: Patient is a 72-year-old male with past medical history of type 2 diabetes, hypertension, NE, CKD stages 3 with a past surgical history of 9 coronary stents that presents for rectal bleeding for the past 2 days. Patient says this has never happened before. He denies any melena or hematochezia. He just says that he found blood in the toilet. He denies any pain while defecating. He denies any diarrhea, constipation, fever, or chills. He denies any abdominal pain, denies any dysuria or hematuria. He does admit to some nausea but denies any vomiting. Patient says that he fell earlier today after trying to get off the toilet and became dizzy and fell. He denies hitting his head on the floor, but says that he hit his head on the wall earlier this morning when he was trying to sit on the toilet and bumped his head on the wall. Denies any chest pain or shortness of breath. He denies any syncope. Patient on plavix and ASA. Last time taken was last night. - Related Data Home Medications Medication Instructions Recorded Confirmed Furosemide [Lasix] 20 mg PO DAILY PRN 12/16/16 06/20/17 Insulin ASPART [Novolog Flexpen] 2 - 10 units SQ TID 12/16/16 06/20/17 Insulin Degludec [Tresiba 80 unit SQ HS 12/16/16 06/20/17 Flextouch U-100] Clopidogrel [Plavix] 75 mg PO DAILY 01/02/17 06/20/17 Docusate [Colace] 200 mg PO DAILY 01/02/17 06/20/17 Finasteride [Proscar] 5 mg PO DAILY 01/02/17 06/20/17 Fluticasone Propionate Nasal 100 mcg NS DAILY PRN 01/02/17 06/20/17 [Flonase] Nitroglycerin [Nitrostat] 0.4 mg SL Q5M PRN 01/02/17 06/20/17 Rosuvastatin [Crestor] 40 mg PO HS 01/02/17 06/20/17 Sertraline [Zoloft] 100 mg PO DAILY 01/02/17 06/20/17 carBAMazepine [Tegretol] 200 mg PO Q12H 01/02/17 06/20/17 Omeprazole [PriLOSEC] 40 mg PO DAILY 01/21/17 06/20/17 Ramipril [Altace] 5 mg PO DAILY 01/21/17 06/20/17 Aspirin Enteric Coated [Aspirin EC] 81 mg PO DAILY 03/14/17 06/20/17 Glimepiride [Amaryl] 4 mg PO BID 04/16/17 06/20/17 Saxagliptin HCl [Onglyza] 5 mg PO DAILY 04/16/17 06/20/17 Previous Rx's Medication Instructions Recorded Metoprolol XL (24 HR) Succ [Toprol 50 mg PO DAILY #30 01/22/17 Xl] Isosorbide MONOnitrate (24 HR) 60 mg PO DAILY #30 04/21/17 [Imdur] Lactobacillus [Culturelle] 2 each PO DAILY #60 cap.sprink 04/21/17 cefTRIAXone [Rocephin] 2,000 mg IVPB DAILY #28 vial 04/21/17 hydrALAZINE [HydrALAZINE] 25 mg PO Q8HR #60 tablet 04/21/17 metroNIDAZOLE [Flagyl] 500 mg PO TID #84 tablet 04/21/17 Allergies Allergy/AdvReac Type Severity Reaction Status Date / Time No Known Allergies Allergy Verified 09/07/17 11:48 Constitutional: Denies: fever, chills, weakness, weight change Cardiovascular: Denies: chest pain, palpitations, dyspnea on exertion, edema, syncope Respiratory: Denies: cough, dyspnea, wheezes, hemoptysis, stridor Gastrointestinal: Reports: nausea. Denies: abdominal pain, vomiting, diarrhea, constipation, hematemesis, melena, hematochezia Genitourinary: Denies: urgency, dysuria, frequency, hematuria Neurological: Denies: headache Past Medical History - Past Medical History Medical history: Reports: cancer, CHF, coronary artery disease, diabetes, hyperlipidemia, hypertension, malignancy, myocardial infarction, renal disease Surgical history: Reports: angioplasty/stent, cataract, coronary bypass (CABG), orthopedic, other Psychiatric history: Reports: depression - Social History Smoking Status: Never smoker Smokeless Tobacco Status: No Alcohol use: Reports: none Drug use: Reports: none Physical Exam - General Limitations: no limitations General appearance: alert, in no apparent distress - Head Head exam: atraumatic, normocephalic, normal inspection - Eye Eye exam: Present: normal appearance, PERRL, EOMI - Neck Neck exam: Absent: tenderness - Chest Chest inspection: Present: normal inspection, symmetric chest wall rise - Respiratory Respiratory exam: Present: normal lung sounds bilaterally - Cardiovascular Cardiovascular exam: Present: regular rate, normal rhythm, normal heart sounds, +S1, +S2. Absent: +S3, +S4 - Abdominal Exam Abdominal exam: Present: soft, tenderness. Absent: distention, guarding, rebound, rigidity, Chinchilla's sign, tenderness at McBurney's Point Abdominal tenderness: Present: RLQ - Extremities Exam Extremities exam: Present: normal inspection, full ROM, normal capillary refill. Absent: tenderness, pedal edema, calf tenderness - Neurological Exam Neurological exam: Present: alert, oriented X3 Course Course Narrative: CT of the head and neck are normal. Abdominal CT shows signs of colitis. Hgb level at at 10.8, likely elevated due to dehydration. WBC within normal limits. Blood glucose level at 655 with normal anion gap, no ketones, normal bicarb and blood pH. No DKA suspected but possible HHS. Patient started on insulin drip. Patient given cipro and flagyl for colitis. Spoke to hopsitalist Dr. López who agreed to admit the patient. Chest X-Ray 09/07/17 11:23 IMPRESSION: No radiographic evidence of acute cardiopulmonary process. D/ / Michael Kim MD / Michael Kim MD Interpreting Provider: Michael Kim MD Abdomen/Pelvis CT 09/07/17 11:24 IMPRESSION: 1. Cholelithiasis. 2. Tiny bilateral renal calculi. 3. Renal cysts bilaterally. Largest 7 cm on the left. 4. Abnormal thickening with mild surrounding infiltration involving about 7 cm segment of distal sigmoid colon near the rectosigmoid junction. Differential is colitis versus neoplasm. D/ / Luis Pearce MD / Luis Pearce MD Interpreting Provider: Luis Pearce MD Cervical Spine CT 09/07/17 11:24 IMPRESSION: No acute intracranial abnormality. Degenerative changes of the mid to lower cervical spine. No evidence for acute fracture or malalignment. D/ / Nino Reyna MD / Nino Reyna MD Interpreting Provider: Nino Reyna MD Head CT 09/07/17 11:24 IMPRESSION: No acute intracranial abnormality. Degenerative changes of the mid to lower cervical spine. No evidence for acute fracture or malalignment. D/ / Nino Reyna MD / Nino Reyna MD Interpreting Provider: Nino Reyna MD Vital Signs Temperature 98.3 F 09/07/17 11:37 Pulse Rate 74 09/07/17 11:37 Respiratory Rate 18 09/07/17 11:37 Blood Pressure 155/85 09/07/17 11:37 O2 Sat by Pulse Oximetry 99 09/07/17 11:37 Temperature 98.3 F 09/07/17 11:37 Pulse Rate 73 09/07/17 13:30 Respiratory Rate 15 09/07/17 13:30 Blood Pressure 174/81 09/07/17 13:30 O2 Sat by Pulse Oximetry 96 09/07/17 13:30 Oxygen Delivery Oxygen Delivery Room Air GI Bleed - Lab Data Result diagrams: 09/07/17 11:34 09/07/17 11:34 Lab Results 09/07/17 09/07/17 09/07/17 Range/Units 11:34 11:34 11:34 WBC 10.1 (4.3-11.1) K/mcL RBC 3.58 L (4.19-5.50) M/mcL Hgb 10.8 L (12.9-16.9) g/dL Hct 32.5 L (37.5-50.1) % MCV 90.8 (83.0-100.0) fL MCH 30.2 (28.0-33.3) pg MCHC 33.2 (31.6-35.5) g/dL RDW 12.4 (11.5-14.5) % Plt Count 215 (140-400) K/mcL MPV 10.5 (9.4-12.4) fL Immature Gran % 0.3 (0-4) % Seg Neutrophils % 79.9 % Lymphocytes % 12.4 % Monocytes % 6.5 % Eosinophils % 0.6 % Basophils % 0.3 % Neutrophils # 8.1 (1.6-8.9) K/mcL Lymphocytes # 1.3 (0.6-4.6) K/mcL Monocytes # 0.7 (0.0-1.3) K/mcL Eosinophils # 0.1 (0.0-0.6) K/mcL Basophils # 0.0 (0.0-0.2) K/mcL PT 11.1 (9.4-12.1) Seconds INR 1.0 APTT 25.6 L (26.0-36.0) Seconds VBG pH (7.32-7.42) pH Units VBG pCO2 (41-51) mmHg VBG pO2 (25-50) mmHg VBG HCO3 (21-27) mEq/L Sodium 133 L (136-145) mEq/L Potassium 4.6 (3.5-5.1) mEq/L Chloride 102 (98-107) mEq/L Carbon Dioxide 25 (23-29) mEq/L BUN 43 H (8-23) mg/dL Creatinine 2.69 H (0.70-1.30) mg/dL Est GFR ( Amer) 29 L (> 60) Est GFR (Non-Af Amer) 24 L (> 60) BUN/Creatinine Ratio 16 (6-26) Glucose 655 H* (70-105) mg/dL Calculated Osmolality 318 H (280-300) Calcium 8.6 (8.6-10.3) mg/dL Magnesium 1.8 (1.6-2.6) mg/dL Beta-Hydroxybutyric Acd (0.02-0.27) mmol/L Urine Color (Yellow) Urine Clarity (Clear) Urine pH (5.0-8.0) pH Units Ur Specific [place] (1.010-1.025) Urine Protein (Neg-Trace) mg/dL Urine Glucose (UA) (Normal) mg/dL Urine Ketones (Negative) mg/dL Urine Blood (Negative) Urine Nitrite (Negative) Urine Bilirubin (Negative) Urine Urobilinogen (Normal) mg/dL Ur Leukocyte Esterase (Negative) Urine Microscopic RBC (0-3) per hpf Urine Microscopic WBC (0-3) per hpf Ur Squamous Epith Cells (None-Few) per lpf Urine Bacteria (None-Few) per hpf Hyaline Casts (None-Few) per lpf Ur Culture Indicated? (NO) Blood Type Antibody Screen 09/07/17 09/07/17 09/07/17 Range/Units 11:34 11:34 12:28 WBC (4.3-11.1) K/mcL RBC (4.19-5.50) M/mcL Hgb (12.9-16.9) g/dL Hct (37.5-50.1) % MCV (83.0-100.0) fL MCH (28.0-33.3) pg MCHC (31.6-35.5) g/dL RDW (11.5-14.5) % Plt Count (140-400) K/mcL MPV (9.4-12.4) fL Immature Gran % (0-4) % Seg Neutrophils % % Lymphocytes % % Monocytes % % Eosinophils % % Basophils % % Neutrophils # (1.6-8.9) K/mcL Lymphocytes # (0.6-4.6) K/mcL Monocytes # (0.0-1.3) K/mcL Eosinophils # (0.0-0.6) K/mcL Basophils # (0.0-0.2) K/mcL PT (9.4-12.1) Seconds INR APTT (26.0-36.0) Seconds VBG pH 7.40 (7.32-7.42) pH Units VBG pCO2 37 L (41-51) mmHg VBG pO2 217 H (25-50) mmHg VBG HCO3 23 (21-27) mEq/L Sodium (136-145) mEq/L Potassium (3.5-5.1) mEq/L Chloride (98-107) mEq/L Carbon Dioxide (23-29) mEq/L BUN (8-23) mg/dL Creatinine (0.70-1.30) mg/dL Est GFR ( Amer) (> 60) Est GFR (Non-Af Amer) (> 60) BUN/Creatinine Ratio (6-26) Glucose (70-105) mg/dL Calculated Osmolality (280-300) Calcium (8.6-10.3) mg/dL Magnesium (1.6-2.6) mg/dL Beta-Hydroxybutyric Acd < 0.10 (0.02-0.27) mmol/L Urine Color (Yellow) Urine Clarity (Clear) Urine pH (5.0-8.0) pH Units Ur Specific [place] (1.010-1.025) Urine Protein (Neg-Trace) mg/dL Urine Glucose (UA) (Normal) mg/dL Urine Ketones (Negative) mg/dL Urine Blood (Negative) Urine Nitrite (Negative) Urine Bilirubin (Negative) Urine Urobilinogen (Normal) mg/dL Ur Leukocyte Esterase (Negative) Urine Microscopic RBC (0-3) per hpf Urine Microscopic WBC (0-3) per hpf Ur Squamous Epith Cells (None-Few) per lpf Urine Bacteria (None-Few) per hpf Hyaline Casts (None-Few) per lpf Ur Culture Indicated? (NO) Blood Type A POSITIVE Antibody Screen NEGATIVE 09/07/17 Range/Units 12:37 WBC (4.3-11.1) K/mcL RBC (4.19-5.50) M/mcL Hgb (12.9-16.9) g/dL Hct (37.5-50.1) % MCV (83.0-100.0) fL MCH (28.0-33.3) pg MCHC (31.6-35.5) g/dL RDW (11.5-14.5) % Plt Count (140-400) K/mcL MPV (9.4-12.4) fL Immature Gran % (0-4) % Seg Neutrophils % % Lymphocytes % % Monocytes % % Eosinophils % % Basophils % % Neutrophils # (1.6-8.9) K/mcL Lymphocytes # (0.6-4.6) K/mcL Monocytes # (0.0-1.3) K/mcL Eosinophils # (0.0-0.6) K/mcL Basophils # (0.0-0.2) K/mcL PT (9.4-12.1) Seconds INR APTT (26.0-36.0) Seconds VBG pH (7.32-7.42) pH Units VBG pCO2 (41-51) mmHg VBG pO2 (25-50) mmHg VBG HCO3 (21-27) mEq/L Sodium (136-145) mEq/L Potassium (3.5-5.1) mEq/L Chloride (98-107) mEq/L Carbon Dioxide (23-29) mEq/L BUN (8-23) mg/dL Creatinine (0.70-1.30) mg/dL Est GFR ( Amer) (> 60) Est GFR (Non-Af Amer) (> 60) BUN/Creatinine Ratio (6-26) Glucose (70-105) mg/dL Calculated Osmolality (280-300) Calcium (8.6-10.3) mg/dL Magnesium (1.6-2.6) mg/dL Beta-Hydroxybutyric Acd (0.02-0.27) mmol/L Urine Color Yellow (Yellow) Urine Clarity Clear (Clear) Urine pH 6.0 (5.0-8.0) pH Units Ur Specific [place] > 1.030 H (1.010-1.025) Urine Protein >=300 H (Neg-Trace) mg/dL Urine Glucose (UA) >=1000 H (Normal) mg/dL Urine Ketones Negative (Negative) mg/dL Urine Blood Small H (Negative) Urine Nitrite Negative (Negative) Urine Bilirubin Negative (Negative) Urine Urobilinogen Normal (Normal) mg/dL Ur Leukocyte Esterase Negative (Negative) Urine Microscopic RBC 3-5 H (0-3) per hpf Urine Microscopic WBC 0-3 (0-3) per hpf Ur Squamous Epith Cells Many H (None-Few) per lpf Urine Bacteria None Seen (None-Few) per hpf Hyaline Casts None Seen (None-Few) per lpf Ur Culture Indicated? NO (NO) Blood Type Antibody Screen - EKG Data EKG shows normal: sinus rhythm, axis, intervals, QRS complexes, ST-T waves Rate: normal [place]/QRS: normal When compared to previous EKG there are: no significant changes Attestation Statement - Attestation Attestation: I, Sean Monaco DO, examined this patient [id number] and my medical decision-making was reviewed with Justo Montes PGY-1, Resident Physician. I agree with the documented findings, disposition and treatment plan as described except to the extent set forth below. Please see my progress notes for details.
--- NOTE | 2017-09-07 12:17 | Emergency Department Note ---
Disposition Clinical Impression: Hematochezia, GI bleed, Anemia, Colitis Disposition: Admitted As Inpatient Condition: Fair Referrals: Raoul Gaona DO [Primary Care Provider] - Forms: ED Satisfaction Letter Time of Disposition: 14:20 General Adult HPI - General Stated complaint: Rectal bleeding Time Seen by Provider: 09/07/17 11:22 - Related Data Home Medications Medication Instructions Recorded Confirmed Furosemide [Lasix] 20 mg PO DAILY PRN 12/16/16 06/20/17 Insulin ASPART [Novolog Flexpen] 2 - 10 units SQ TID 12/16/16 06/20/17 Insulin Degludec [Tresiba 80 unit SQ HS 12/16/16 06/20/17 Flextouch U-100] Clopidogrel [Plavix] 75 mg PO DAILY 01/02/17 06/20/17 Docusate [Colace] 200 mg PO DAILY 01/02/17 06/20/17 Finasteride [Proscar] 5 mg PO DAILY 01/02/17 06/20/17 Fluticasone Propionate Nasal 100 mcg NS DAILY PRN 01/02/17 06/20/17 [Flonase] Nitroglycerin [Nitrostat] 0.4 mg SL Q5M PRN 01/02/17 06/20/17 Rosuvastatin [Crestor] 40 mg PO HS 01/02/17 06/20/17 Sertraline [Zoloft] 100 mg PO DAILY 01/02/17 06/20/17 carBAMazepine [Tegretol] 200 mg PO Q12H 01/02/17 06/20/17 Omeprazole [PriLOSEC] 40 mg PO DAILY 01/21/17 06/20/17 Ramipril [Altace] 5 mg PO DAILY 01/21/17 06/20/17 Aspirin Enteric Coated [Aspirin EC] 81 mg PO DAILY 03/14/17 06/20/17 Glimepiride [Amaryl] 4 mg PO BID 04/16/17 06/20/17 Saxagliptin HCl [Onglyza] 5 mg PO DAILY 04/16/17 06/20/17 Previous Rx's Medication Instructions Recorded Metoprolol XL (24 HR) Succ [Toprol 50 mg PO DAILY #30 01/22/17 Xl] Isosorbide MONOnitrate (24 HR) 60 mg PO DAILY #30 04/21/17 [Imdur] Lactobacillus [Culturelle] 2 each PO DAILY #60 cap.sprink 04/21/17 cefTRIAXone [Rocephin] 2,000 mg IVPB DAILY #28 vial 04/21/17 hydrALAZINE [HydrALAZINE] 25 mg PO Q8HR #60 tablet 04/21/17 metroNIDAZOLE [Flagyl] 500 mg PO TID #84 tablet 04/21/17 Allergies Allergy/AdvReac Type Severity Reaction Status Date / Time No Known Allergies Allergy Verified 09/07/17 11:48 Past Medical History - Past Medical History Medical history: Reports: cancer, CHF, coronary artery disease, diabetes, hyperlipidemia, hypertension, malignancy, myocardial infarction, renal disease Surgical history: Reports: angioplasty/stent, cataract, coronary bypass (CABG), orthopedic, other Psychiatric history: Reports: depression - Social History Smoking Status: Never smoker Smokeless Tobacco Status: No Alcohol use: Reports: none Drug use: Reports: none Course Vital Signs Temperature 98.3 F 09/07/17 11:37 Pulse Rate 74 09/07/17 11:37 Respiratory Rate 18 09/07/17 11:37 Blood Pressure 155/85 09/07/17 11:37 O2 Sat by Pulse Oximetry 99 09/07/17 11:37 Temperature 98.3 F 09/07/17 11:37 Pulse Rate 73 09/07/17 13:30 Respiratory Rate 15 09/07/17 13:30 Blood Pressure 174/81 09/07/17 13:30 O2 Sat by Pulse Oximetry 96 09/07/17 13:30 Oxygen Delivery Oxygen Delivery Room Air Medical Decision Making - Lab Data Result diagrams: 09/07/17 11:34 09/07/17 11:34 Lab Results 09/07/17 09/07/17 09/07/17 Range/Units 11:34 11:34 11:34 WBC 10.1 (4.3-11.1) K/mcL RBC 3.58 L (4.19-5.50) M/mcL Hgb 10.8 L (12.9-16.9) g/dL Hct 32.5 L (37.5-50.1) % MCV 90.8 (83.0-100.0) fL MCH 30.2 (28.0-33.3) pg MCHC 33.2 (31.6-35.5) g/dL RDW 12.4 (11.5-14.5) % Plt Count 215 (140-400) K/mcL MPV 10.5 (9.4-12.4) fL Immature Gran % 0.3 (0-4) % Seg Neutrophils % 79.9 % Lymphocytes % 12.4 % Monocytes % 6.5 % Eosinophils % 0.6 % Basophils % 0.3 % Neutrophils # 8.1 (1.6-8.9) K/mcL Lymphocytes # 1.3 (0.6-4.6) K/mcL Monocytes # 0.7 (0.0-1.3) K/mcL Eosinophils # 0.1 (0.0-0.6) K/mcL Basophils # 0.0 (0.0-0.2) K/mcL PT 11.1 (9.4-12.1) Seconds INR 1.0 APTT 25.6 L (26.0-36.0) Seconds VBG pH (7.32-7.42) pH Units VBG pCO2 (41-51) mmHg VBG pO2 (25-50) mmHg VBG HCO3 (21-27) mEq/L Sodium 133 L (136-145) mEq/L Potassium 4.6 (3.5-5.1) mEq/L Chloride 102 (98-107) mEq/L Carbon Dioxide 25 (23-29) mEq/L BUN 43 H (8-23) mg/dL Creatinine 2.69 H (0.70-1.30) mg/dL Est GFR ( Amer) 29 L (> 60) Est GFR (Non-Af Amer) 24 L (> 60) BUN/Creatinine Ratio 16 (6-26) Glucose 655 H* (70-105) mg/dL Calculated Osmolality 318 H (280-300) Calcium 8.6 (8.6-10.3) mg/dL Magnesium 1.8 (1.6-2.6) mg/dL Beta-Hydroxybutyric Acd (0.02-0.27) mmol/L Urine Color (Yellow) Urine Clarity (Clear) Urine pH (5.0-8.0) pH Units Ur Specific [place] (1.010-1.025) Urine Protein (Neg-Trace) mg/dL Urine Glucose (UA) (Normal) mg/dL Urine Ketones (Negative) mg/dL Urine Blood (Negative) Urine Nitrite (Negative) Urine Bilirubin (Negative) Urine Urobilinogen (Normal) mg/dL Ur Leukocyte Esterase (Negative) Urine Microscopic RBC (0-3) per hpf Urine Microscopic WBC (0-3) per hpf Ur Squamous Epith Cells (None-Few) per lpf Urine Bacteria (None-Few) per hpf Hyaline Casts (None-Few) per lpf Ur Culture Indicated? (NO) Blood Type Antibody Screen 09/07/17 09/07/17 09/07/17 Range/Units 11:34 11:34 12:28 WBC (4.3-11.1) K/mcL RBC (4.19-5.50) M/mcL Hgb (12.9-16.9) g/dL Hct (37.5-50.1) % MCV (83.0-100.0) fL MCH (28.0-33.3) pg MCHC (31.6-35.5) g/dL RDW (11.5-14.5) % Plt Count (140-400) K/mcL MPV (9.4-12.4) fL Immature Gran % (0-4) % Seg Neutrophils % % Lymphocytes % % Monocytes % % Eosinophils % % Basophils % % Neutrophils # (1.6-8.9) K/mcL Lymphocytes # (0.6-4.6) K/mcL Monocytes # (0.0-1.3) K/mcL Eosinophils # (0.0-0.6) K/mcL Basophils # (0.0-0.2) K/mcL PT (9.4-12.1) Seconds INR APTT (26.0-36.0) Seconds VBG pH 7.40 (7.32-7.42) pH Units VBG pCO2 37 L (41-51) mmHg VBG pO2 217 H (25-50) mmHg VBG HCO3 23 (21-27) mEq/L Sodium (136-145) mEq/L Potassium (3.5-5.1) mEq/L Chloride (98-107) mEq/L Carbon Dioxide (23-29) mEq/L BUN (8-23) mg/dL Creatinine (0.70-1.30) mg/dL Est GFR ( Amer) (> 60) Est GFR (Non-Af Amer) (> 60) BUN/Creatinine Ratio (6-26) Glucose (70-105) mg/dL Calculated Osmolality (280-300) Calcium (8.6-10.3) mg/dL Magnesium (1.6-2.6) mg/dL Beta-Hydroxybutyric Acd < 0.10 (0.02-0.27) mmol/L Urine Color (Yellow) Urine Clarity (Clear) Urine pH (5.0-8.0) pH Units Ur Specific [place] (1.010-1.025) Urine Protein (Neg-Trace) mg/dL Urine Glucose (UA) (Normal) mg/dL Urine Ketones (Negative) mg/dL Urine Blood (Negative) Urine Nitrite (Negative) Urine Bilirubin (Negative) Urine Urobilinogen (Normal) mg/dL Ur Leukocyte Esterase (Negative) Urine Microscopic RBC (0-3) per hpf Urine Microscopic WBC (0-3) per hpf Ur Squamous Epith Cells (None-Few) per lpf Urine Bacteria (None-Few) per hpf Hyaline Casts (None-Few) per lpf Ur Culture Indicated? (NO) Blood Type A POSITIVE Antibody Screen NEGATIVE 09/07/17 Range/Units 12:37 WBC (4.3-11.1) K/mcL RBC (4.19-5.50) M/mcL Hgb (12.9-16.9) g/dL Hct (37.5-50.1) % MCV (83.0-100.0) fL MCH (28.0-33.3) pg MCHC (31.6-35.5) g/dL RDW (11.5-14.5) % Plt Count (140-400) K/mcL MPV (9.4-12.4) fL Immature Gran % (0-4) % Seg Neutrophils % % Lymphocytes % % Monocytes % % Eosinophils % % Basophils % % Neutrophils # (1.6-8.9) K/mcL Lymphocytes # (0.6-4.6) K/mcL Monocytes # (0.0-1.3) K/mcL Eosinophils # (0.0-0.6) K/mcL Basophils # (0.0-0.2) K/mcL PT (9.4-12.1) Seconds INR APTT (26.0-36.0) Seconds VBG pH (7.32-7.42) pH Units VBG pCO2 (41-51) mmHg VBG pO2 (25-50) mmHg VBG HCO3 (21-27) mEq/L Sodium (136-145) mEq/L Potassium (3.5-5.1) mEq/L Chloride (98-107) mEq/L Carbon Dioxide (23-29) mEq/L BUN (8-23) mg/dL Creatinine (0.70-1.30) mg/dL Est GFR ( Amer) (> 60) Est GFR (Non-Af Amer) (> 60) BUN/Creatinine Ratio (6-26) Glucose (70-105) mg/dL Calculated Osmolality (280-300) Calcium (8.6-10.3) mg/dL Magnesium (1.6-2.6) mg/dL Beta-Hydroxybutyric Acd (0.02-0.27) mmol/L Urine Color Yellow (Yellow) Urine Clarity Clear (Clear) Urine pH 6.0 (5.0-8.0) pH Units Ur Specific [place] > 1.030 H (1.010-1.025) Urine Protein >=300 H (Neg-Trace) mg/dL Urine Glucose (UA) >=1000 H (Normal) mg/dL Urine Ketones Negative (Negative) mg/dL Urine Blood Small H (Negative) Urine Nitrite Negative (Negative) Urine Bilirubin Negative (Negative) Urine Urobilinogen Normal (Normal) mg/dL Ur Leukocyte Esterase Negative (Negative) Urine Microscopic RBC 3-5 H (0-3) per hpf Urine Microscopic WBC 0-3 (0-3) per hpf Ur Squamous Epith Cells Many H (None-Few) per lpf Urine Bacteria None Seen (None-Few) per hpf Hyaline Casts None Seen (None-Few) per lpf Ur Culture Indicated? NO (NO) Blood Type Antibody Screen Attestation Statement - Attestation Attestation: I, Sean Monaco DO, examined this patient [id number] and my medical decision-making was reviewed with Justo Montes PGY-1, Resident Physician. I agree with the documented findings, disposition and treatment plan as described except to the extent set forth below. Please see my progress notes for details. 72-year-old male presents to the emergency room for evaluation of hematochezia. Patient had onset of symptoms yesterday and progressively been getting worse today. He does have blood on the insides of both of his legs. Patient denies any recent trauma or injury. He is currently on Plavix, aspirin and he thought that he potentially was on Coumadin. Denies any recent manipulation or injury. Patient does not have any pain with defecation. He has normal transportation to the anus at this time. Patient has no specific history of hemorrhoids or injury. Patient denies any chest pain shortness of breath headache vision changes nausea vomiting or diarrhea. He has had blood per his rectum here today. He denies any symptomatic presentation included lightheadedness or dizziness at this point. When he sits up he does get a slight flush sensation but otherwise he is unremarkable on presentation. Head is atraumatic pupils are equal round reactive oromucosa is pink and moist at this time. Trachea is midline. Lungs are clear heart is regular abdomen is soft he has slight suprapubic and bilateral lower quadrant tenderness at this time. Patient does not have any surgical history in the abdomen at this point. Patient is concerning cardiac history in the past with does not appear to have cardiac nature this time. Patient will have detailed workup completed CBC chemistry chest x-ray and CT imaging the abdomen and urinalysis at this point. Blood typing as well as evaluation for rectal injury will be established in emergency room. Patient will mostly require admission for further evaluation and management here in the ED considering he does appear to be symptomatic when he gets up and walks at this point. See detailed documentation of physical exam, medical intervention, medical decision-making and disposition in the resident physician's note. No critical care blood of the patient's treatment course at this time. 1325 Hemoglobin appears to be at baseline. CT imaging of the abdomen does show some diffuse colitis in the distal aspect of the colon. Could be the source the patient's bleeding here today. He does have symptomatic presentation with lightheadedness and feeling like he gets exertionally week in the context of the bleeding. Patient will be started on Cipro and Flagyl here in the emergency room will be admitted for symptomatically control management to make sure the bleeding resolved and the inflammatory changes do improve. Patient was born the plan. Hospitalist was contacted. Dr. miles reviewed the workup treatment course and evaluation here in the emergency room and had no other recommendations at this time. Antibiotics were ordered at this point patient is otherwise clinically stable and will be admitted to hospital for definitive management.
[2017-09-07 12:31] LABS: VBG HCO3 23 mEq/L (21-27); VBG PCO2 37 mmHg (41-51); VBG PO2 217 mmHg (25-50)
[2017-09-07 12:44] LABS: Calcium 8.6 mg/dL (8.6-10.3); Magnesium 1.8 mg/dL (1.6-2.6); Potassium 4.6 mEq/L (3.5-5.1)
[2017-09-07] MEDS ORDERED: metroNIDAZOLE 500 MG TABLET PO ONE (12:48)
[2017-09-07 12:53] LABS: Bilirubin,Urine Negative (Negative); Blood,Urine Small (Negative); Clarity,Urine Clear (Clear); Color,Urine Yellow (Yellow); Glucose,Urine (UA) >=1000 mg/dL (Normal); Ketones,Urine Negative (Negative); Leukocyte Esterase,Urine Negative (Negative); Nitrite,Urine Negative (Negative); Protein,Urine >=300 mg/dL (Neg-Trace); Specific Gravity,Urine > 1.030 (1.010-1.025); Urobilinogen,Urine Normal (Normal)
[2017-09-07 12:58] LABS: Bacteria,Urine None Seen per hpf (None-Few); Hyaline Casts,Urine None Seen per lpf (None-Few); Squamous Epithelial Cell,Urine Many per lpf (None-Few); WBC,Urine 0-3 per hpf (0-3)
[2017-09-07] MEDS ORDERED: Insulin Regular, Human 100 UNIT/ML IV PRN (14:11)
[2017-09-07] MEDS ORDERED: *HR* Dextrose 50 % in Water (Syg) 50 ML SYRINGE IVP PRN (14:11)
[2017-09-07] MEDS ORDERED: Naloxone 0.4 MG/ML INJ IVP PRN (14:26)
[2017-09-07] MEDS ORDERED: Nitroglycerin 0.4 MG TAB.SUBL SL PRN (14:29)
[2017-09-07] MEDS: Insulin Human Regular 100 UNIT in 0.9 % Sodium Chloride 100 ML IVC SCH ×2 (15:11→22:50)
[2017-09-07 15:21] LABS: Troponin I 5.66 ng/mL (< 0.04)
[2017-09-07] MEDS: 0.9 % Sodium Chloride 1,000 ML IVC SCH (16:55)
[2017-09-07] MEDS: carBAMazepine 200 MG TABLET PO SCH (16:58)
[2017-09-07] MEDS: Pantoprazole 40 MG VIAL IVP SCH (16:58)
[2017-09-07] MEDS: hydrALAZINE 25 MG TABLET PO SCH (16:58)
[2017-09-07] MEDS ORDERED: SODIUM CHLORIDE/NAHCO3/KCL/PEG 4,000 ML SOLN.RECON PO ONE (17:00)
[2017-09-07] MEDS ORDERED: *HR* Heparin 5,000 UNIT/ML VIAL IVP ONE (18:49)
[2017-09-07] MEDS ORDERED: *HR* Heparin 5,000 UNIT/ML VIAL IVP PRN (18:49)
--- NOTE | 2017-09-07 18:53 | Internal Med History&Physical ---
Date of Encounter: 09/07/17 Time of Encounter: 18:49 Internal Medicine - H&P: HPI Chief complaint: bleeding per rectum Admitted From: Emergency Dept Plans for Post Hospital Care: Home History of present illness: Mr. Anguiano is a 72 year old male Medical history for diabetes, hypertension, dyslipidemia, chronic kidney disease, patient has a previous coronary artery bypass graft. Patient presented to emergency room with bleeding per rectum. Patient claims that this is ongoing event, for past more than 48 hours. Patient claims that this never happened before area patient denies any melena or/hematochezia. Patient claims that this is a fresh bleed. Patient denies chest pain, conservation, nausea, vomiting, fever or chills. Patient also denies any abdominal pain. Noted that patient is on aspirin and Plavix. Workup in the emergency room: Patient was evaluated in the emergency room, baseline labs were drawn. CT scan of the abdomen was done. It showed possibility of a neoplasm/colitis. Also noted that patient's troponin was elevated to 5 Reason for admission: Non-ST elevation myocardial infarction in a patient who has a active bleeding per rectum with multiple comorbid conditions Family history: Noncontributory Past Med Surg Social Fam HX - Past Medical History Medical history: cancer, CHF, coronary artery disease, diabetes, hyperlipidemia , hypertension, malignancy, myocardial infarction, renal disease Psychiatric history: depression - Past Surgical History Surgical History: angioplasty/stent, cataract, coronary bypass (CABG), orthopedic, other - Social History Smoking Status: Never smoker Smokeless Tobacco Status: No Alcohol use: none Drug use: none - Family History Father Living Status: Hx Family Cardiac Disorders: Yes Mother Adopted: No Living Status: Hx Family Cardiac Disorders: Yes Hx Family Cancer: Yes (liver cancer) Internal Medicine - H&P: Meds Furosemide [Lasix] 20 mg PO DAILY PRN 12/16/16 [History] Insulin ASPART [Novolog Flexpen] 2 - 10 units SQ TID 12/16/16 [History] Insulin Degludec [Tresiba Flextouch U-100] 80 unit SQ HS 12/16/16 [History] Clopidogrel [Plavix] 75 mg PO DAILY 01/02/17 [History] Finasteride [Proscar] 5 mg PO DAILY 01/02/17 [History] Fluticasone Propionate Nasal [Flonase] 100 mcg NS DAILY PRN 01/02/17 [History] Nitroglycerin [Nitrostat] 0.4 mg SL Q5M PRN 01/02/17 [History] Rosuvastatin [Crestor] 40 mg PO HS 01/02/17 [History] Sertraline [Zoloft] 100 mg PO DAILY 01/02/17 [History] carBAMazepine [Tegretol] 200 mg PO Q12H 01/02/17 [History] Omeprazole [PriLOSEC] 40 mg PO DAILY 01/21/17 [History] Ramipril [Altace] 5 mg PO DAILY 01/21/17 [History] Metoprolol XL (24 HR) Succ [Toprol Xl] 50 mg PO DAILY #30 01/22/17 [Rx] Aspirin Enteric Coated [Aspirin EC] 81 mg PO DAILY 03/14/17 [History] Glimepiride [Amaryl] 4 mg PO BID 04/16/17 [History] Saxagliptin HCl [Onglyza] 5 mg PO DAILY 04/16/17 [History] Isosorbide MONOnitrate (24 HR) [Imdur] 60 mg PO DAILY #30 04/21/17 [Rx] Lactobacillus [Culturelle] 2 each PO DAILY #60 cap.sprink 04/21/17 [Rx] cefTRIAXone [Rocephin] 2,000 mg IVPB DAILY #28 vial 04/21/17 [Rx] hydrALAZINE [HydrALAZINE] 25 mg PO Q8HR #60 tablet 04/21/17 [Rx] Pregabalin [Lyrica] 100 mg PO BID 09/07/17 [History] 3 Allergy/AdvReac Type Severity Reaction Status Date / Time No Known Allergies Allergy Verified 09/07/17 14:43 All Systems PM: A 10-system review of systems was performed and is negative for pertinent findings except as documented above in the HPI. - Constitutional Constitutional: no chills, no fever(s), no night sweats - EENT Eyes: no change in vision, no discharge, no pain, no photophobia Ears: no ear discharge, no ear pain, no tinnitus Nose, mouth and throat: no dysphagia, no nasal discharge, no neck pain, no sore throat - Cardiovascular Cardiovascular ROS IM: no chest pain, no diaphoresis, no dyspnea, no lightheadedness, no palpitations, no syncope - Respiratory Respiratory: no cough, no dyspnea, no wheezing, no excessive phlegm production - Gastrointestinal Gastrointestinal: no abdominal pain, no diarrhea, no hematemesis, no hematochezia, no melena, no nausea, no vomiting Additional comments: Bleeding per rectum - Musculoskeletal Musculoskeletal ROS IM: no numbness, no tingling - Integumentary Integumentary IM: no rash, no unusual bruising - Neurological Neurological ROS: no confusion, no convulsions, no focal weakness, no numbness, no tingling, no tremor(s) - Hematologic/Lymphatic Hematologic/Lymphatic: no easy bruising - Constitutional Vitals: Temp Pulse Resp BP Pulse Ox 97.9 F 72 16 183/85 96 09/07/17 16:30 09/07/17 16:30 09/07/17 16:30 09/07/17 16:30 09/07/17 13:30 General appearance: Present: A&O X 3, pleasant, no acute distress, answers questions appropriately - Head Head exam: Present: atraumatic, normocephalic - Eye Eye exam: Present: PERRL, conjuntiva pink, sclera anicteric Pupils: Present: PERRL - Neck Neck exam general surgery: Present: supple, trachea midline. Absent: lymphadenopathy - Respiratory Respiratory exam: Present: CTAB. Absent: accessory muscle use, rales, rhonchi, wheezes - Cardiovascular Cardiovascular exam: Present: RRR, +S1, +S2. Absent: diastolic murmur, gallop, rubs, systolic murmur - GI/Abdominal GI/Abdominal exam: Present: normal bowel sounds, soft, no peritoneal signs. Absent: distended, tenderness - Extremities Exam Extremities exam: Present: warm, radial pulses palpable and symmetrical. Absent : calf tenderness, cyanotic, pedal edema - Neurological Exam Neurological exam: Present: CN II-XII intact, oriented X3, no focal deficits. Absent: pronater drift, facial droop, speech deficit - Skin Skin exam: Present: dry, intact Internal Med - H&P Results - Labs CBC & Chem 7: 09/07/17 11:34 09/07/17 11:34 Labs: Cardiac Enzymes 09/07/17 Range/Units 15:39 Troponin I 4.78 H* (< 0.04) ng/mL - Assessment and plan (1) Non-ST elevation myocardial infarction (NSTEMI) Current Visit: Yes Status: Acute Assessment and plan: 72/male Admitted with bleeding per rectum. Noted that patient's opponent is elevated to 5.66 but trending down to 4.78 Patient denies chest pain. No acute EKG changes. Case discussed with fixed capital clerk director special education. Patient needs to be on a heparin drip. Noted that CT scan of the abdomen shows possibility of a neoplasm in the rectosigmoid junction. Plan: We will start heparin drip. We will switch of heparin drip tomorrow 6 AM. Around known we will get colonoscopy by gastroenterology. Further decision of cardiac catheterization/management based upon colonoscopy result Above plan is as per discussion with cardiology. (2) GI bleed Current Visit: Yes Status: Acute Assessment and plan: Patient does have a bleeding per rectum. Noted that the baseline hemoglobin is stable. CT scan of the abdomen see history of for a rectosigmoid junctional area where there is a possibility of a colon cancer/neoplasm. Spoke with gastroenterology director special education. In view of non-STEMI patient is getting heparin drip. Plan to stop heparin drip at 6 AM in the morning. Gastroneurology we will do colonoscopy around known. Qualifiers: GI bleed type/associated pathology: anorectal hemorrhage Qualified Code(s) : K62.5 - Hemorrhage of anus and rectum (3) DANIE (acute kidney injury) Current Visit: No Status: Acute Assessment and plan: Noted that patient's creatinine is elevated to 2.69. Acute kidney injury can be secondary to multifactorial etiology. At this point we will give IV fluids and monitor patient very closely. (4) Diabetes mellitus Current Visit: No Status: Chronic Assessment and plan: Noted that patient's blood sugar was more than 500. This can distress response or the elevation of blood sugar can be multifactorial. We will start patient on insulin drip. Management of blood sugar as per the protocol. Qualifiers: Diabetes mellitus type: type 2 Diabetes mellitus custodial insulin use: with converting technician use Diabetes mellitus complication status: with neurologic complications Diabetes mellitus complication detail: with polyneuropathy Qualified Code(s): E11.42 - Type 2 diabetes mellitus with diabetic polyneuropathy; Z79.4 - alf (current) use of insulin (5) CKD (chronic kidney disease) Current Visit: No Status: Chronic Assessment and plan: Patient is known to have stage III CKD Qualifiers: Chronic kidney disease stage: stage 3 (moderate) Qualified Code(s): N18.3 - Chronic kidney disease, stage 3 (moderate) (6) DVT prophylaxis Current Visit: No Status: Acute Assessment and plan: Heparin drip Medical decision making: This patient has a moderate to severe risk of worsening in spite of being on appropriate medication due to the underlying multiple comorbid conditions. - Time Spent With Patient Total time spent is greater than 50% in coordination of care (as documented) at patient's floor/unit and/or counseling patient:
[2017-09-07] MEDS ORDERED: Heparin 25,000 UNIT/500 ML D5W 25,000 UNIT/500 ML BAG IVC SCH (19:00)
[2017-09-08] MEDS: hydrALAZINE 25 MG TABLET PO SCH ×3 (02:00→16:17)
[2017-09-08] MEDS: carBAMazepine 200 MG TABLET PO SCH ×2 (02:00→14:18)
[2017-09-08] MEDS: Pantoprazole 40 MG VIAL IVP SCH ×2 (04:31→18:06)
[2017-09-08 06:17] LABS: Basophils % 0.2 %; Eosinophils % 0.2 %; Hematocrit 36.1 % (37.5-50.1); Hemoglobin 11.9 g/dL (12.9-16.9); Immature Granulocytes % 0.5 % (0-4); Lymphocytes # 1.9 K/mcL (0.6-4.6); Lymphocytes % 14.8 %; Mean Corpuscular Hemoglobin 29.8 pg (28.0-33.3); Mean Corpuscular Volume 90.3 fL (83.0-100.0); Mean Platelet Volume 10.4 fL (9.4-12.4); Monocytes # 0.8 K/mcL (0.0-1.3); Neutrophils # 10.1 K/mcL (1.6-8.9); Platelet Count 249 K/mcL (140-400); Red Cell Distribution Width 12.7 % (11.5-14.5); Segmented Neutrophils % 78.3 %
--- NOTE | 2017-09-08 06:28 | Electrocardiograph Report ---
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
--- NOTE | 2017-09-08 06:28 | Electrocardiograph Report ---
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
[2017-09-08 06:40] LABS: Albumin 2.9 g/dL (3.5-5.7); Albumin/Globulin Ratio 0.8 (1.1-2.2); Bilirubin,Total 0.3 mg/dL (0.3-1.0); Calcium 8.4 mg/dL (8.6-10.3); Globulin 3.6 g/dL (2.4-3.5); Magnesium 1.6 mg/dL (1.6-2.6); Phosphorous 4.1 mg/dL (2.7-4.5); Total Protein 6.5 g/dL (6.4-8.9)
[2017-09-08] MEDS ORDERED: *HR* PHENYLEPHRINE 1,000 MCG/10 ML SYRINGE IVP ONE (09:21)
[2017-09-08 09:58] LABS: Basophils % 0.2 %; Eosinophils % 0.3 %; Hematocrit 36.8 % (37.5-50.1); Hemoglobin 12.2 g/dL (12.9-16.9); Immature Granulocytes % 0.4 % (0-4); Lymphocytes # 1.5 K/mcL (0.6-4.6); Lymphocytes % 14.2 %; Mean Corpuscular HGB Conc 33.2 g/dL (31.6-35.5); Mean Corpuscular Hemoglobin 30.1 pg (28.0-33.3); Mean Corpuscular Volume 90.9 fL (83.0-100.0); Mean Platelet Volume 10.4 fL (9.4-12.4); Monocytes # 0.6 K/mcL (0.0-1.3); Monocytes % 5.9 %; Neutrophils # 8.3 K/mcL (1.6-8.9); Platelet Count 227 K/mcL (140-400); Red Blood Count 4.05 M/mcL (4.19-5.50); Red Cell Distribution Width 12.9 % (11.5-14.5)
--- NOTE | 2017-09-08 10:12 | Anesthesia Evaluation PreOp ---
Date of Encounter: 09/08/17 Time of Encounter: 10:10 - Past History Planned Operation: Colonoscopy Cardiac History: [place] (NSTEMI this admission), HTN, Hyperlipidemia, Cardiac Surgery (CABG) Pulmonary History: Denies Any Significant HX THERAPEUTIC SPECIALIST History: Denies Any Significant HX Other Medical History: Renal (CKD, DANIE), Bleeding (Rectal bleeding, colitis, colon mass), Diabetes Type II Anesthesia History: No Prior Anesthetic Complications, Past Anesthesia Alcohol Use: none Drug use: none Medications and Allergies Furosemide [Lasix] 20 mg PO DAILY PRN 12/16/16 [History] Insulin ASPART [Novolog Flexpen] 2 - 10 units SQ TID 12/16/16 [History] Insulin Degludec [Tresiba Flextouch U-100] 80 unit SQ HS 12/16/16 [History] Clopidogrel [Plavix] 75 mg PO DAILY 01/02/17 [History] Finasteride [Proscar] 5 mg PO DAILY 01/02/17 [History] Fluticasone Propionate Nasal [Flonase] 100 mcg NS DAILY PRN 01/02/17 [History] Nitroglycerin [Nitrostat] 0.4 mg SL Q5M PRN 01/02/17 [History] Rosuvastatin [Crestor] 40 mg PO HS 01/02/17 [History] Sertraline [Zoloft] 100 mg PO DAILY 01/02/17 [History] carBAMazepine [Tegretol] 200 mg PO Q12H 01/02/17 [History] Omeprazole [PriLOSEC] 40 mg PO DAILY 01/21/17 [History] Ramipril [Altace] 5 mg PO DAILY 01/21/17 [History] Metoprolol XL (24 HR) Succ [Toprol Xl] 50 mg PO DAILY #30 01/22/17 [Rx] Aspirin Enteric Coated [Aspirin EC] 81 mg PO DAILY 03/14/17 [History] Glimepiride [Amaryl] 4 mg PO BID 04/16/17 [History] Saxagliptin HCl [Onglyza] 5 mg PO DAILY 04/16/17 [History] Isosorbide MONOnitrate (24 HR) [Imdur] 60 mg PO DAILY #30 04/21/17 [Rx] Lactobacillus [Culturelle] 2 each PO DAILY #60 cap.sprink 04/21/17 [Rx] cefTRIAXone [Rocephin] 2,000 mg IVPB DAILY #28 vial 04/21/17 [Rx] hydrALAZINE [HydrALAZINE] 25 mg PO Q8HR #60 tablet 04/21/17 [Rx] Pregabalin [Lyrica] 100 mg PO BID 09/07/17 [History] 3 Allergy/AdvReac Type Severity Reaction Status Date / Time No Known Allergies Allergy Verified 09/07/17 14:43 - Meds/Allergy Pre-op Review Medications Reviewed: Yes (Hepaein gtt off at 0600) Allergies Reviewed: Yes Anesthesia Results - Labs 09/08/17 09:42 09/08/17 06:04 - Imaging Additional studies: TTE 04/2017: LVEF 40%. Mild global and segmental LV systolic dysfunction - basal inferior and inferolateral wall hypokinesis. Mild concentric left ventricular hypertrophy. Mild left ventricular diastolic dysfunction. Normal RV size with low normal RV function. Mild-moderate mitral regurgitation. Mild tricuspid regurgitation. No pulmonary hypertension by TR gradient. Anesthesia Exam O2 Sat Height 1.73 m Weight 87.453 kg Vital Signs/O2 Sat, Most Current Temp Pulse Resp BP Pulse Ox 97.3 F L 84 20 230/101 97 09/08/17 10:10 09/08/17 10:10 09/08/17 10:10 09/08/17 10:10 09/08/17 10:10 NPO (# of Hours): 8 - HEENT Mallampati: II Teeth: Normal Oral Opening: Greater than 3 - Cardiac Rhythm: Regular - Pulmonary Breath Sounds: bilateral Clear Anesthesia Assess/Plan ASA Score: 4 Modified Parker Scale for Level of Consciousness: Cooperative, oriented, and tranquil Anesthetic Plan: MAC Monitoring Plan: Standard Monitors Recovery Plan: Other Anes Supervising Prov Stmt: Patient informed and consented. Risks, benefits, and alternatives discussed. Patient wishes to proceed.
--- NOTE | 2017-09-08 10:19 | Gastroenterology Consult Note ---
Date of Encounter: 09/08/17 Time of Encounter: 10:00 - Assessment and plan (1) GI bleed Current Visit: Yes Status: Acute Assessment and plan: Patient was because of the lower GI bleed with CT scan showing possible colitis in the distal sigmoid colon. Other differential is neoplasm. Patient onset of the bleeding was very sudden. Finding are suspicious for ischemic colitis. Patient will have a colonoscopy done today meanwhile continue IV antibiotics. Qualifiers: GI bleed type/associated pathology: anorectal hemorrhage Qualified Code(s) : K62.5 - Hemorrhage of anus and rectum (2) Elevated troponin Current Visit: No Status: Acute Assessment and plan: Denies any chest pain ,does has significant history of coronary disease and has multiple stent placed in the past .per patient total of 9 and the last time was in 2012 he also has CABG done in the past ,currently chest pain-free. Patient has been on IV heparin that was stopped for 4 hour prior to the clonoscopy. Cardiology has been consulted and I did talk to cardiology and it was okay from their point to do the colonoscopy as they want to source of bleeding prior to doing any cardiac catheter. - Time Spent With Patient Total time spent is greater than 50% in coordination of care (as documented) at patient's floor/unit and/or counseling patient: GI History of Present Illness - Data of Consult Requesting Physician: Whit Pantoja MD - Consult Narrative Reason for consult: Rectal bleeding History of present illness: Mr. Anguiano is a 72 year old male who was admitted because of rectal bleeding that started the day before. Per patient he went to the bathroom 2 days ago and after the bowel movement he notices blood in his stool. He had 2 episodes the day before and one episode yesterday and was brought to the ER. Does complain of some abdominal pain the left lower quadrant. In the ER he was found to have elevated troponin and cardiology has been consulted denies any chest pain. CT of the abdomen showed a small segment of colitis versus neoplasm in the lower sigmoid region. Per patient he had a colonoscopy done by Dr. Gaona years ago. Past Med Surg Social Fam HX - Past Medical History Medical history: cancer, CHF, coronary artery disease, diabetes, hyperlipidemia , hypertension, malignancy, myocardial infarction, renal disease Psychiatric history: depression - Past Surgical History Surgical History: angioplasty/stent, cataract, coronary bypass (CABG), orthopedic, other - Social History Smoking Status: Never smoker Smokeless Tobacco Status: No Alcohol use: none Drug use: none - Family History Father Living Status: Hx Family Cardiac Disorders: Yes Mother Adopted: No Living Status: Hx Family Cardiac Disorders: Yes Hx Family Cancer: Yes (liver cancer) Review of Systems: GI: as per [facility]: denies fever,complain of feeling weak. per Patient since his foot surgery few months ago he is not feeling well EYES: denies yellow discoloration ENT: denies pain with swallowing or difficulty swallowing CARDIO: denies chest pain, palpitations RESP: No Shortness of breath with exertion : denies change in color of urine NEURO: Denies any focal weakness but does complain of generalized weakness HEME: Denies any bruising MS: denies joint pain, joint swelling or back pain. 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 ~NEUROLOGIC:~no obvious focal defect.~~~~ Results - Labs CBC & Chem 7: 09/08/17 09:42 09/08/17 06:04 Labs: Last Result Calcium 8.4 mg/dL (8.6-10.3) L 09/08/17 06:04 Troponin I 4.17 ng/mL (< 0.04) H* 09/08/17 06:04 Entire Visit Hgb 12.2 g/dL (12.9-16.9) L 09/08/17 09:42 Hct 36.8 % (37.5-50.1) L 09/08/17 09:42 PT 11.1 Seconds (9.4-12.1) 09/07/17 11:34 Total Bilirubin 0.3 mg/dL (0.3-1.0) 09/08/17 06:04 AST 17 Units/L (13-39) 09/08/17 06:04 ALT 10 Units/L (7-52) 09/08/17 06:04 - ABG ABG results: PT/INR, D-dimer PT 11.1 Seconds (9.4-12.1) 09/07/17 11:34 Consult Discharge Plan - Plan Referrals: Royal Pedro MD [Partnered Physician] - (dent web request on 12-08-17 @ [phone]) Jay Chung DO [Resident] - 09/13/17 3:20 pm
--- NOTE | 2017-09-08 10:41 | Anesthesia Evaluation Post Op ---
Date of Encounter: 09/08/17 Time of Encounter: 11:05 Notes: Patient's vital signs have been reviewed. Patient is stable postoperatively and has adequately recovered from anesthesia. Patient is determined to have stable airway patency and respiratory function including respiratory rate and oxygen saturation. Patient has a stable heart rate, blood pressure and adequate hydration. Patients mental status is acceptable. Patients temperature is appropriate. Pain and nausea are adequately controlled. - Discharge PostOp Status: Transfer Patient to floor
[2017-09-08] MEDS: 0.9 % Sodium Chloride 1,000 ML IVC SCH (11:45)
[2017-09-08] MEDS: Finasteride 5 MG TABLET PO SCH (11:46)
[2017-09-08] MEDS: Isosorbide MONOnitrate (24 HR) 30 MG TAB.ER.24H PO SCH (11:46)
[2017-09-08] MEDS: (Saxagliptin Hcl [Onglyza] 5 MG) PO SCH (11:46)
[2017-09-08] MEDS: Lactobacillus 1 EACH CAP.SPRINK PO SCH (11:46)
--- NOTE | 2017-09-08 13:05 | Cardiology Consult Note ---
<Willie Hall - Last Filed: 09/08/17 14:18> Date of Encounter: 09/08/17 Time of Encounter: 13:00 Assessment and Plan (1) GI bleed Current Visit: Yes Status: Acute Per Cardiology: Seen by GI. Discussed with GI and sonaay from their standpoint to proceed with catheterization if clinically warranted. Qualifiers: GI bleed type/associated pathology: anorectal hemorrhage Qualified Code(s) : K62.5 - Hemorrhage of anus and rectum (2) Non-ST elevation myocardial infarction (NSTEMI) Current Visit: Yes Status: Acute Per Cardiology: Presented with rectal bleeding. Patient reports chronic fatigue. Denies any chest pain symptoms. Trops. were checked by primary service and noted to be 5.66 and now down to 4.17. NSTEMI vs demand ischemia-- GI bleed, chronic anemia , CKD, HTN urgency. However, trops are higher than what would be expected. Will order CR c/s. Will discuss with Dr. Winter possible LHC, however will monitor for now (clinically stable) for any recurrent bleeding and to assure DANIE on CKD improves. Patient and evaluating if would like to proceed with potential LHC. On Imdur. Takes Ranexa at home, will resume and increase to 1000mg PO BID. Of note, EF 40% on echo -- will also assess limited echo for any changes in EF. Hep gtt active order. Will resume home asa. (3) CAD (coronary artery disease) Current Visit: Yes Status: Chronic Per Cardiology: History of CAD with CABG 1 in 2006 at [place] and reported history of 9 total stents with most recent catheterization at [facility] in 2012. We will attempt to obtain these medical records. Qualifiers: Coronary Disease-Associated Artery/Lesion type: bypass graft [place] vs. transplanted heart: [place] heart Associated angina: without angina Qualified Code(s): I25.810 - Atherosclerosis of coronary artery bypass graft(s) without angina pectoris (4) Hypertensive urgency Current Visit: Yes Status: Acute Per Cardiology: Presented with systolic blood pressure in the 210s. Currently in the 180s. Appears to have been on Toprol in the past, however appears discontinued. Will initiate Coreg (CAD, CMP, HTN) 6.25 mg by mouth twice a day and monitor closely. (5) CKD (chronic kidney disease) Current Visit: Yes Status: Chronic Per Cardiology: Appears to have history of CK D stage IIIB - IV. Kidney fxn on arrival slightly higher than baseline. Avoid nephrotoxins. Qualifiers: Chronic kidney disease stage: stage 3 (moderate) Qualified Code(s): N18.3 - Chronic kidney disease, stage 3 (moderate) Discussion w patient/family: The assessment and plan as outlined above was discussed with the patient and/or family members who expressed understanding and agreement. All questions were answered. Thank you for involving us in the care of your patient. Please call with any questions. History of Present Illness Consult date: 09/08/17 Requesting physician: Justo Velez Consult reason: Elevated Trop Chief complaint: Rectal Bleeding History of present illness: Mr. Anguiano is a 72 year old male with a relevant past medical history of diabetes mellitus, hypertension, CAD with history of CABG and stenting, hypertension, hyperlipidemia, and CKK. Last seen by Dr. Montgomery August 2017. Reports past history of diabetic leg wounds, however denies any active wounds or infection. Cardiology consult for elevated troponin in setting of rectal bleeding. Patient seen with at bedside. Reports he presented to the hospital for concerns of bright red rectal bleeding the past couple days. He denies any current bleeding. He does report chronic fatigue, unchanged from baseline. Prior to admission he denies any chest pain, shortness of breath, palpitations, dizziness, syncope, falls. Reports last catheterization around 2012. Confirms compliance with medications and takes Ranexa 500 mg by mouth twice a day. Past Med Surg Social Fam HX - Past Medical History Attestation: Yes The following information was validated with the patient. Source: patient, old records reviewed, obtained from family Medical history: cancer, CHF, coronary artery disease, diabetes, hyperlipidemia , hypertension, malignancy, myocardial infarction, renal disease Psychiatric history: depression - Past Surgical History Surgical History: angioplasty/stent, cataract, coronary bypass (CABG), orthopedic, other - Social History Smoking Status: Never smoker Smokeless Tobacco Status: No Alcohol use: none Drug use: none - Family History Father Living Status: Hx Family Cardiac Disorders: Yes Mother Adopted: No Living Status: Hx Family Cardiac Disorders: Yes Hx Family Cancer: Yes (liver cancer) Medications and Allergies Furosemide [Lasix] 20 mg PO DAILY PRN 12/16/16 [History] Insulin ASPART [Novolog Flexpen] 2 - 10 units SQ TID 12/16/16 [History] Insulin Degludec [Tresiba Flextouch U-100] 80 unit SQ HS 12/16/16 [History] Clopidogrel [Plavix] 75 mg PO DAILY 01/02/17 [History] Finasteride [Proscar] 5 mg PO DAILY 01/02/17 [History] Fluticasone Propionate Nasal [Flonase] 100 mcg NS DAILY PRN 01/02/17 [History] Nitroglycerin [Nitrostat] 0.4 mg SL Q5M PRN 01/02/17 [History] Rosuvastatin [Crestor] 40 mg PO HS 01/02/17 [History] Sertraline [Zoloft] 100 mg PO DAILY 01/02/17 [History] carBAMazepine [Tegretol] 200 mg PO Q12H 01/02/17 [History] Omeprazole [PriLOSEC] 40 mg PO DAILY 01/21/17 [History] Ramipril [Altace] 5 mg PO DAILY 01/21/17 [History] Metoprolol XL (24 HR) Succ [Toprol Xl] 50 mg PO DAILY #30 01/22/17 [Rx] Aspirin Enteric Coated [Aspirin EC] 81 mg PO DAILY 03/14/17 [History] Glimepiride [Amaryl] 4 mg PO BID 04/16/17 [History] Saxagliptin HCl [Onglyza] 5 mg PO DAILY 04/16/17 [History] Isosorbide MONOnitrate (24 HR) [Imdur] 60 mg PO DAILY #30 04/21/17 [Rx] Lactobacillus [Culturelle] 2 each PO DAILY #60 cap.sprink 04/21/17 [Rx] cefTRIAXone [Rocephin] 2,000 mg IVPB DAILY #28 vial 04/21/17 [Rx] hydrALAZINE [HydrALAZINE] 25 mg PO Q8HR #60 tablet 04/21/17 [Rx] Pregabalin [Lyrica] 100 mg PO BID 09/07/17 [History] 3 Allergy/AdvReac Type Severity Reaction Status Date / Time No Known Allergies Allergy Verified 09/07/17 14:43 All Systems Review: The remainder of the systems were reviewed and are negative - Constitutional Constitutional: fatigue - Cardiovascular Cardiovascular: as per HPI - Gastrointestinal Gastrointestinal: hematochezia Physical Examination Vital Signs, Last 4 Hours Temp Pulse Resp BP Pulse Ox 09/08/17 11:28 182/93 09/08/17 11:27 98.7 F 73 18 184/113 96 09/08/17 10:21 228/98 09/08/17 10:10 97.3 F L 84 20 230/101 97 General: Conversant, No Apparent Distress HEENT: Atraumatic, Normocephaly, Mucus Membranes Moist Neck: No JVD, Normal carotid pulses Cardiac: Reg Rate and Rhythm, Normal S1 and S2, No Murmur Lungs: Normal Breath Sounds, No Wheeze, Rales, Rhonchi Neuro: Alert and responsive, No focal deficits noted Abdomen: Soft, Non-Tender Skin: No rashes noted on visualized skin Musculoskeletal: No Chest Wall Tenderness Extremities: No Clubbing, No Cyanosis, No Edema, Normal Pulses Results 09/08/17 09:42 09/08/17 06:04 Lab Results Laboratory Tests 05/29/17 05/29/17 09/07/17 12:40 12:40 11:34 Hgb 10.5 L 10.8 L Hct 32.5 L 32.5 L INR Creatinine 2.20 H Glucose Troponin I B-Natriuretic Peptide 09/07/17 09/07/17 09/07/17 11:34 11:34 15:39 Hgb Hct INR 1.0 Creatinine 2.69 H Glucose 655 H* Troponin I 5.66 H* 4.78 H* B-Natriuretic Peptide 09/07/17 09/08/17 09/08/17 23:13 06:04 06:04 Hgb 11.9 L Hct 36.1 L INR Creatinine Glucose Troponin I 4.34 H* 4.17 H* B-Natriuretic Peptide 09/08/17 09/08/17 06:04 06:04 Hgb Hct INR Creatinine 2.22 H Glucose 164 H Troponin I B-Natriuretic Peptide 194 H ITS Impressions Chest X-Ray 09/07/17 11:23 IMPRESSION: No radiographic evidence of acute cardiopulmonary process. D/ / Michael Kim MD / Michael Kim MD Interpreting Provider: Michael Kim MD Abdomen/Pelvis CT 09/07/17 11:24 IMPRESSION: 1. Cholelithiasis. 2. Tiny bilateral renal calculi. 3. Renal cysts bilaterally. Largest 7 cm on the left. 4. Abnormal thickening with mild surrounding infiltration involving about 7 cm segment of distal sigmoid colon near the rectosigmoid junction. Differential is colitis versus neoplasm. D/ / Luis Pearce MD / Luis Pearce MD Interpreting Provider: Luis Pearce MD Cervical Spine CT 09/07/17 11:24 IMPRESSION: No acute intracranial abnormality. Degenerative changes of the mid to lower cervical spine. No evidence for acute fracture or malalignment. D/ / Nino Reyna MD / Nino Reyna MD Interpreting Provider: Nino Reyna MD Head CT 09/07/17 11:24 IMPRESSION: No acute intracranial abnormality. Degenerative changes of the mid to lower cervical spine. No evidence for acute fracture or malalignment. D/ / Nino Reyna MD / Nino Reyna MD Interpreting Provider: Nino Reyna MD Active Medications Carbamazepine (Tegretol) 200 mg PO Q12H DANETTE PRN Reason: Protocol Stop: 03/09/18 14:31 Last Admin: 09/08/17 02:00 Dose: Not Given Dextrose/Water (Dextrose 50% (Syg)) 25 ml IVP Q15MIN PRN PRN Reason: Hypoglycemia Stop: 03/09/18 14:12 Last Admin: 09/07/17 23:38 Dose: 25 ml Finasteride (Proscar) 5 mg PO DAILY DANETTE PRN Reason: Protocol Stop: 03/10/18 09:01 Last Admin: 09/08/17 11:46 Dose: 5 mg Heparin Sodium (Porcine) (Heparin) 4,000 unit IVP Q6HR PRN PRN Reason: SEE COMMENTS Stop: 03/09/18 18:50 Heparin Sodium (Porcine) (Heparin) 2,000 unit IVP Q6H PRN PRN Reason: SEE COMMENTS Stop: 03/09/18 18:50 Hydralazine HCl (Hydralazine) 25 mg PO Q8HR [facility] Stop: 03/09/18 16:01 Last Admin: 09/08/17 11:46 Dose: 25 mg Sodium Chloride (0.9 % Sodium Chloride) 1,000 mls @ 70 mls/hr IVC .[id number] DANETTE Stop: 03/09/18 14:46 Last Admin: 09/08/17 11:45 Dose: 70 mls/hr Heparin Sodium/Dextrose (Heparin 25,000 Unit/500 Ml D5w) 25,000 unit in 500 mls @ 19.939 mls/hr IVC .Q24H DANETTE; 11.4 UNIT/KG/HR PRN Reason: Protocol Stop: 03/09/18 19:01 Last Admin: 09/08/17 01:56 Dose: 11.4 unit/kg/hr, 19.939 mls/hr Ciprofloxacin Lactate (Cipro Premix 400 Mg/200 Ml) 400 mg in 200 mls @ 200 mls/ hr IVPB DAILY [facility] Stop: 03/10/18 12:01 Metronidazole (Flagyl Premix 500 Mg/100 Ml) 500 mg in 100 mls @ 100 mls/hr IVPB Q8H [facility] Stop: 03/10/18 12:01 Insulin Human Lispro (Humalog) 0 units SQ Q6HR DANETTE PRN Reason: Protocol Stop: 03/10/18 12:01 Isosorbide Mononitrate (Imdur) 60 mg PO DAILY [facility] Stop: 03/10/18 09:01 Last Admin: 09/08/17 11:46 Dose: 60 mg Lactobacillus Acidophilus/Rhamnosus (Culturelle) 2 each PO DAILY [facility] Stop: 03/10/18 09:01 Last Admin: 09/08/17 11:46 Dose: 2 each Naloxone HCl (Narcan) 0.4 mg IVP Q2MIN PRN PRN Reason: SEE COMMENTS Stop: 03/09/18 14:27 Nitroglycerin (Nitroglycerin) 0.4 mg SL Q5M PRN PRN Reason: Chest Pain Stop: 03/09/18 14:30 Pantoprazole Sodium (Protonix) 40 mg IVP Q12HR DANETTE Stop: 03/09/18 18:01 Last Admin: 09/08/17 04:31 Dose: 40 mg Pharmacy Profile Note (Patient Taking Own Medication) 0 each PO DAILY DANETTE Stop: 03/10/18 09:01 Last Admin: 09/08/17 11:46 Dose: Not Given Rosuvastatin Calcium (Crestor) 40 mg PO HS DANETTE Stop: 03/09/18 21:01 Last Admin: 09/07/17 19:56 Dose: 40 mg Sertraline HCl (Zoloft) 100 mg PO DAILY DANETTE Stop: 03/10/18 09:01 Last Admin: 09/08/17 11:46 Dose: 100 mg - Imaging and Cardiology Echo: report reviewed (ECHO 04/2017: Impressions: LVEF 40%. Mild global and segmental LV systolic dysfunction - basal inferior and inferolateral wall hypokinesis. Mild concentric left ventricular hypertrophy. Mild left ventricular diastolic dysfunction. Normal RV size with low normal RV function. Mild-moderate mitral regurgitation. Mild tricuspid regurgitation. No pulmonary hypertension by TR gradient. Left Ventricular Wall Motion: Rest Echo Findings The apex, apical inferior, mid inferior, basal inferior, apical anterior, mid anterior, basal anterior, apical septal, mid inferior septal, basal inferior septal, apical lateral, mid anterior lateral, basal anterior lateral, mid anterior septal, mid inferior lateral, basal anterior septal and basal inferior lateral schroeder were hypokinetic.) - EKG Interpretation EKG results cardiology: personally reviewed (Poor quality tracing, however appears unchanged from baseline with no active ischemia noted), normal ECG, sinus rhythm, no diagnostic ischemia Consult Discharge Plan - Plan Referrals: Royal Pedro MD [Partnered Physician] - (dent web request on 12-08-17 @ [phone]) Jay Chung DO [Resident] - 09/13/17 3:20 pm <Marquita Winter - Last Filed: 09/08/17 15:47> Date of Encounter: 09/08/17 - Attending Attestation I examined this patient and my medical decision-making was reviewed with the NECKTIE MAKER. I agree with the documented findings, disposition and treatment plan as described. Mr. Anguiano presents with GIB with incidentally discovered elevated troponins, 5.66 at peak. No acute ischemic ECG changes. Patient denies recent chest pain. Has known CAD and prior bypass - care out of [place] system. Underwent endoscopy today. Will await renal function to optimize and observe for any further signs of bleeding prior to planning for C. Patient and contemplative. Continue heparin gtt, asa, statin, BB. Assessment and Plan Discussion w patient/family: The assessment and plan as outlined above was discussed with the patient and/or family members who expressed understanding and agreement. All questions were answered. Thank you for involving us in the care of your patient. Please call with any questions. History of Present Illness History of present illness: Mr. Anguiano is a 72 year old male All Systems Review: The remainder of the systems were reviewed and are negative Results 09/08/17 09:42 09/08/17 06:04 Lab Results 09/07/17 09/07/17 09/08/17 15:39 23:13 06:04 WBC Hgb Hct Plt Count APTT Sodium Potassium Chloride Carbon Dioxide BUN Creatinine Glucose Calcium Magnesium Total Bilirubin AST ALT Alkaline Phosphatase Troponin I 4.78 H* 4.34 H* 4.17 H* B-Natriuretic Peptide 09/08/17 09/08/17 09/08/17 06:04 06:04 06:04 WBC 12.9 H Hgb 11.9 L Hct 36.1 L Plt Count 249 APTT Sodium 139 Potassium 4.0 Chloride 107 Carbon Dioxide 23 BUN 32 H Creatinine 2.22 H Glucose 164 H Calcium 8.4 L Magnesium 1.6 Total Bilirubin 0.3 AST 17 ALT 10 Alkaline Phosphatase 69 Troponin I B-Natriuretic Peptide 194 H 09/08/17 09/08/17 09:42 11:57 WBC 10.5 Hgb 12.2 L Hct 36.8 L Plt Count 227 APTT 25.5 L Sodium Potassium Chloride Carbon Dioxide BUN Creatinine Glucose Calcium Magnesium Total Bilirubin AST ALT Alkaline Phosphatase Troponin I B-Natriuretic Peptide
--- NOTE | 2017-09-08 13:34 | Internal Med Progress Note ---
Date of Encounter: 09/08/17 Time of Encounter: 11:15 - Assessment and plan (1) Non-ST elevation myocardial infarction (NSTEMI) Current Visit: Yes Status: Acute Assessment and plan: Patient currently on IV heparin drip. High risk for complications due to recent GI bleed. Monitoring vital signs closely. Cardiology consulted. We will follow recommendations. Troponin appears to be trending down slowly. She does not have any chest pain at this time. (2) GI bleed Current Visit: Yes Status: Acute Assessment and plan: From ischemic colitis. Colonoscopy done today suggests possible ischemic colitis. Will treat with empiric antibiotics. IV fluids. Monitor blood counts. Qualifiers: GI bleed type/associated pathology: anorectal hemorrhage Qualified Code(s) : K62.5 - Hemorrhage of anus and rectum (3) Diabetes mellitus Current Visit: Yes Status: Chronic Assessment and plan: Blood sugars elevated. We will adjust insulin coverage. Continue to monitor blood sugars closely. Diabetic diet when patient is able to eat Qualifiers: Diabetes mellitus type: type 2 Diabetes mellitus longterm insulin use: with longterm use Diabetes mellitus complication status: with neurologic complications Diabetes mellitus complication detail: with polyneuropathy Qualified Code(s): E11.42 - Type 2 diabetes mellitus with diabetic polyneuropathy; Z79.4 - meterman (current) use of insulin (4) DVT prophylaxis Current Visit: No Status: Acute Assessment and plan: Currently on IV heparin (5) CKD (chronic kidney disease) Current Visit: Yes Status: Chronic Assessment and plan: Creatinine improving. Baseline creatinine appears to be between 1.8 and 2.2. Will consult nephrology as patient may require left heart catheterization. Qualifiers: Chronic kidney disease stage: stage 3 (moderate) Qualified Code(s): N18.3 - Chronic kidney disease, stage 3 (moderate) (6) DANIE (acute kidney injury) Current Visit: Yes Status: Acute Assessment and plan: Improving. (7) CAD (coronary artery disease) Current Visit: Yes Status: Chronic Assessment and plan: Holding antiplatelet agents due to acute GI bleed. Patient currently not having chest pain but does elevated troponin. Cardiology consulted. Qualifiers: Coronary Disease-Associated Artery/Lesion type: bypass graft [place] vs. transplanted heart: [place] heart Associated angina: without angina Qualified Code(s): I25.810 - Atherosclerosis of coronary artery bypass graft(s) without angina pectoris - Time Spent With Patient Total time spent is greater than 50% in coordination of care (as documented) at patient's floor/unit and/or counseling patient: - Subjective Interval history: Patient is lying in bed. He underwent colonoscopy this morning. Doing well post procedure. Denies any chest pain or shortness of breath at this time. - Constitutional Vitals: Temp Pulse Resp BP Pulse Ox 98.7 F 73 18 182/93 96 09/08/17 11:27 09/08/17 11:27 09/08/17 11:27 09/08/17 11:28 09/08/17 11:27 General appearance: Present: cooperative, A&O X 3, pleasant, no acute distress, answers questions appropriately - Neck Neck exam general surgery: Present: supple, trachea midline. Absent: lymphadenopathy - Respiratory Respiratory exam: Present: CTAB. Absent: accessory muscle use, rales, rhonchi, wheezes - Cardiovascular Cardiovascular exam: Present: RRR, +S1, +S2. Absent: diastolic murmur, gallop, rubs, systolic murmur - GI/Abdominal GI/Abdominal exam: Present: normal bowel sounds, soft, tenderness (Right lower quadrant), no peritoneal signs. Absent: distended - Extremities Exam Extremities exam: Present: warm, radial pulses palpable and symmetrical. Absent : calf tenderness, cyanotic, pedal edema - Neurological Exam Neurological exam: Present: CN II-XII intact, oriented X3, no focal deficits, strengths equal and symetr throughout. Absent: facial droop, speech deficit Internal Medicine: Result - Labs CBC & Chem 7: 09/08/17 09:42 09/08/17 06:04 Labs: Short CBC 09/08/17 09/08/17 Range/Units 06:04 09:42 WBC 12.9 H 10.5 (4.3-11.1) K/mcL Hgb 11.9 L 12.2 L (12.9-16.9) g/dL Hct 36.1 L 36.8 L (37.5-50.1) % Plt Count 249 227 (140-400) K/mcL Neutrophils # 10.1 H 8.3 (1.6-8.9) K/mcL BMP 09/08/17 06:04 Sodium 139 Potassium 4.0 Chloride 107 Carbon Dioxide 23 BUN 32 H Creatinine 2.22 H Glucose 164 H Calcium 8.4 L Cardiac Enzymes 09/07/17 09/07/17 09/08/17 Range/Units 15:39 23:13 06:04 Troponin I 4.78 H* 4.34 H* 4.17 H* (< 0.04) ng/mL Liver Function 09/08/17 Range/Units 06:04 Total Bilirubin 0.3 (0.3-1.0) mg/dL AST 17 (13-39) Units/L ALT 10 (7-52) Units/L Alkaline Phosphatase 69 (34-104) Units/L Albumin 2.9 L (3.5-5.7) g/dL - ABG Interpretation ABG results: PT/INR, D-dimer PT 11.1 Seconds (9.4-12.1) 09/07/17 11:34 - VTE Documentation of Mechanical Device: Graduated compression elastic hosiery Consult Discharge Plan - Plan Referrals: Royal Pedro MD [Partnered Physician] - (dent web request on 12-08-17 @ [phone]) Jay Chung DO [Resident] - 09/13/17 3:20 pm
[2017-09-08] MEDS: MetroNIDAZOLE 500 MG/100 ML 500 MG/100 ML BAG IVPB SCH ×2 (14:19→21:22)
[2017-09-08] MEDS: Insulin LISPRO 300 UNITS/3 ML VIAL SQ SCH ×2 (14:23→18:08)
[2017-09-08] MEDS: Ranolazine 500 MG TAB.ER.12H PO SCH (21:22)
[2017-09-09] MEDS: *HR* Heparin 5,000 UNIT/ML VIAL IVP PRN ×2 (00:16→08:23)
[2017-09-09] MEDS: hydrALAZINE 25 MG TABLET PO SCH ×4 (00:17→23:27)
[2017-09-09] MEDS: Insulin LISPRO 300 UNITS/3 ML VIAL SQ SCH ×5 (02:07→23:28)
[2017-09-09] MEDS: 0.9 % Sodium Chloride 1,000 ML IVC SCH ×2 (02:08→17:54)
[2017-09-09] MEDS: MetroNIDAZOLE 500 MG/100 ML 500 MG/100 ML BAG IVPB SCH ×3 (03:31→19:55)
[2017-09-09] MEDS: carBAMazepine 200 MG TABLET PO SCH ×2 (03:32→17:41)
[2017-09-09] MEDS: Pantoprazole 40 MG VIAL IVP SCH ×2 (03:47→17:42)
--- NOTE | 2017-09-09 06:47 | Cardiology Progress Note ---
Date of Encounter: 09/09/17 Time of Encounter: 06:45 Assessment and Plan (1) GI bleed Current Visit: Yes Status: Acute Per Cardiology: GI following. Patient reports more blood per RN. Hgb now down from 12 to 9. Will Dc IV Hep. gtt-- has been about 24 hrs for NSTEMI. Will continue asa for now unless GI feels should be stopped. Qualifiers: GI bleed type/associated pathology: anorectal hemorrhage Qualified Code(s) : K62.5 - Hemorrhage of anus and rectum (2) Non-ST elevation myocardial infarction (NSTEMI) Current Visit: Yes Status: Acute Per Cardiology: Presented with rectal bleeding. Patient reports chronic fatigue. Denies any chest pain symptoms. Trops. were checked by primary service and noted to be 5.66 and now down to 4.17. NSTEMI vs demand ischemia-- GI bleed, chronic anemia , CKD, HTN urgency. However, trops are higher than what would be expected. Of note, EF 40% on echo 04/2017-- limited echo pending. On asa, Hep gtt, BB, statin , Imdur, Ranexa. Eval for possible LHC, but H&H continues to downward trend. (3) CAD (coronary artery disease) Current Visit: Yes Status: Chronic Per Cardiology: History of CAD with CABG 1 in 2006 at [facility] and reported history of 9 total stents with most recent catheterization at [facility] in 2012. We will attempt to obtain these medical records-- none received yet. Qualifiers: Coronary Disease-Associated Artery/Lesion type: bypass graft [place] vs. transplanted heart: [place] heart Associated angina: without angina Qualified Code(s): I25.810 - Atherosclerosis of coronary artery bypass graft(s) without angina pectoris (4) Hypertensive urgency Current Visit: Yes Status: Acute Per Cardiology: Presented with systolic blood pressure in the 210s. Now 150's-160's. (5) CKD (chronic kidney disease) Current Visit: Yes Status: Chronic Per Cardiology: Appears to have history of CK D stage IIIB - IV. Kidney fxn on arrival slightly higher than baseline, appears improved. Avoid nephrotoxins. Qualifiers: Chronic kidney disease stage: stage 3 (moderate) Qualified Code(s): N18.3 - Chronic kidney disease, stage 3 (moderate) Discussion w patient/family: The assessment and plan as outlined above was discussed with the patient and/or family members who expressed understanding and agreement. All questions were answered. Thank you for involving us in the care of your patient. Please call with any questions. Subjective Principal diagnosis: GI Bleed, Elevated Trops Interval history: Denies any CP, SOB, Palps. Reports RN told him blood with last BM. Objective Vital Signs, Last 4 Hours Temp Pulse Resp BP Pulse Ox 09/09/17 04:35 98.6 F 78 16 152/69 95 General: Conversant, No Apparent Distress HEENT: Atraumatic, Normocephaly, Mucus Membranes Moist Neck: No JVD, Normal carotid pulses Cardiac: Reg Rate and Rhythm, Normal S1 and S2, No Murmur Lungs: Normal Breath Sounds, No Wheeze, Rales, Rhonchi Neuro: Alert and responsive, No focal deficits noted Abdomen: Soft, Non-Tender Skin: No rashes noted on visualized skin Musculoskeletal: No Chest Wall Tenderness Extremities: No Clubbing, No Cyanosis, No Edema, Normal Pulses Results 09/09/17 06:34 09/09/17 06:34 Lab Results Laboratory Tests 09/08/17 09/09/17 06:04 06:34 Hgb 11.9 L Hct 36.1 L Creatinine 2.14 H Est GFR (Non-Af Amer) 31 L ITS Impressions Chest X-Ray 09/07/17 11:23 IMPRESSION: No radiographic evidence of acute cardiopulmonary process. D/ / Michael Kim MD / Michael Kim MD Interpreting Provider: Michael Kim MD Abdomen/Pelvis CT 09/07/17 11:24 IMPRESSION: 1. Cholelithiasis. 2. Tiny bilateral renal calculi. 3. Renal cysts bilaterally. Largest 7 cm on the left. 4. Abnormal thickening with mild surrounding infiltration involving about 7 cm segment of distal sigmoid colon near the rectosigmoid junction. Differential is colitis versus neoplasm. D/ / Luis Pearce MD / Luis Pearce MD Interpreting Provider: Luis Pearce MD Cervical Spine CT 09/07/17 11:24 IMPRESSION: No acute intracranial abnormality. Degenerative changes of the mid to lower cervical spine. No evidence for acute fracture or malalignment. D/ / Nino Reyna MD / Nino Reyna MD Interpreting Provider: Nino Reyna MD Head CT 09/07/17 11:24 IMPRESSION: No acute intracranial abnormality. Degenerative changes of the mid to lower cervical spine. No evidence for acute fracture or malalignment. D/ / Nino Reyna MD / Nino Reyna MD Interpreting Provider: Nino Reyna MD Active Medications Aspirin (Aspirin) 81 mg PO DAILY [facility] Stop: 03/11/18 09:01 Carbamazepine (Tegretol) 200 mg PO Q12H DANETTE PRN Reason: Protocol Stop: 03/09/18 14:31 Last Admin: 09/09/17 03:32 Dose: 200 mg Carvedilol (Coreg) 6.25 mg PO BIDWM DANETTE PRN Reason: Protocol Stop: 03/10/18 17:01 Last Admin: 09/08/17 16:17 Dose: 6.25 mg Dextrose/Water (Dextrose 50% (Syg)) 25 ml IVP Q15MIN PRN PRN Reason: Hypoglycemia Stop: 03/09/18 14:12 Last Admin: 09/07/17 23:38 Dose: 25 ml Finasteride (Proscar) 5 mg PO DAILY DANETTE PRN Reason: Protocol Stop: 03/10/18 09:01 Last Admin: 09/08/17 11:46 Dose: 5 mg Heparin Sodium (Porcine) (Heparin) 4,000 unit IVP Q6HR PRN PRN Reason: SEE COMMENTS Stop: 03/09/18 18:50 Last Admin: 09/08/17 16:16 Dose: 4,000 unit Heparin Sodium (Porcine) (Heparin) 2,000 unit IVP Q6H PRN PRN Reason: SEE COMMENTS Stop: 03/09/18 18:50 Last Admin: 09/09/17 00:16 Dose: 2,000 unit Hydralazine HCl (Hydralazine) 25 mg PO Q8HR DANETTE Stop: 03/09/18 16:01 Last Admin: 09/09/17 00:17 Dose: 25 mg Sodium Chloride (0.9 % Sodium Chloride) 1,000 mls @ 70 mls/hr IVC .[id number] DANETTE Stop: 03/09/18 14:46 Last Admin: 09/09/17 02:08 Dose: 70 mls/hr Heparin Sodium/Dextrose (Heparin 25,000 Unit/500 Ml D5w) 25,000 unit in 500 mls @ 19.939 mls/hr IVC .Q24H DANETTE; 11.4 UNIT/KG/HR PRN Reason: Protocol Stop: 03/09/18 19:01 Last Titration: 09/09/17 00:08 Dose: 13.39 unit/kg/hr, 23.42 mls/hr Ciprofloxacin Lactate (Cipro Premix 400 Mg/200 Ml) 400 mg in 200 mls @ 200 mls/ hr IVPB DAILY [facility] Stop: 03/10/18 12:01 Last Admin: 09/08/17 14:19 Dose: 200 mls/hr Metronidazole (Flagyl Premix 500 Mg/100 Ml) 500 mg in 100 mls @ 100 mls/hr IVPB Q8H [facility] Stop: 03/10/18 12:01 Last Infusion: 09/09/17 06:40 Dose: Infused Insulin Human Lispro (Humalog) 0 units SQ Q6HR DANETTE PRN Reason: Protocol Stop: 03/10/18 12:01 Last Admin: 09/09/17 02:07 Dose: 4 units Isosorbide Mononitrate (Imdur) 60 mg PO DAILY [facility] Stop: 03/10/18 09:01 Last Admin: 09/08/17 11:46 Dose: 60 mg Lactobacillus Acidophilus/Rhamnosus (Culturelle) 2 each PO DAILY [facility] Stop: 03/10/18 09:01 Last Admin: 09/08/17 11:46 Dose: 2 each Naloxone HCl (Narcan) 0.4 mg IVP Q2MIN PRN PRN Reason: SEE COMMENTS Stop: 03/09/18 14:27 Nitroglycerin (Nitroglycerin) 0.4 mg SL Q5M PRN PRN Reason: Chest Pain Stop: 03/09/18 14:30 Pantoprazole Sodium (Protonix) 40 mg IVP Q12HR [facility] Stop: 03/09/18 18:01 Last Admin: 09/09/17 03:47 Dose: 40 mg Pharmacy Profile Note (Patient Taking Own Medication) 0 each PO DAILY [facility] Stop: 03/10/18 09:01 Last Admin: 09/08/17 11:46 Dose: Not Given Ranolazine (Ranexa) 1,000 mg PO BID [facility] Stop: 03/10/18 21:01 Last Admin: 09/08/17 21:22 Dose: 1,000 mg Rosuvastatin Calcium (Crestor) 40 mg PO HS [facility] Stop: 03/09/18 21:01 Last Admin: 09/08/17 21:22 Dose: 40 mg Sertraline HCl (Zoloft) 100 mg PO DAILY [facility] Stop: 03/10/18 09:01 Last Admin: 09/08/17 11:46 Dose: 100 mg - Imaging and Cardiology Echo: pending - EKG Interpretation EKG results cardiology: other (SR on tele) - VTE Documentation of Mechanical Device: Intermittent pneumatic compression device Consult Discharge Plan - Plan Referrals: Royal Pedro MD [Partnered Physician] - (dent web request on 12-08-17 @ [phone]) Jay Chung DO [Resident] - 09/13/17 3:20 pm
[2017-09-09 07:04] LABS: Basophils % 0.2 %; Eosinophils # 0.1 K/mcL (0.0-0.6); Eosinophils % 1.4 %; Hematocrit 29.5 % (37.5-50.1); Hemoglobin 9.8 g/dL (12.9-16.9); Immature Granulocytes % 0.4 % (0-4); Lymphocytes # 1.7 K/mcL (0.6-4.6); Lymphocytes % 20.1 %; Mean Corpuscular HGB Conc 33.2 g/dL (31.6-35.5); Mean Corpuscular Volume 90.2 fL (83.0-100.0); Mean Platelet Volume 10.7 fL (9.4-12.4); Monocytes # 0.6 K/mcL (0.0-1.3); Monocytes % 7.5 %; Neutrophils # 5.9 K/mcL (1.6-8.9); Platelet Count 211 K/mcL (140-400); Red Blood Count 3.27 M/mcL (4.19-5.50); Segmented Neutrophils % 70.4 %
[2017-09-09 07:21] LABS: Potassium 3.6 mEq/L (3.5-5.1)
[2017-09-09] MEDS: Ranolazine 500 MG TAB.ER.12H PO SCH ×2 (08:06→19:55)
[2017-09-09] MEDS: Finasteride 5 MG TABLET PO SCH (08:07)
[2017-09-09] MEDS: Isosorbide MONOnitrate (24 HR) 30 MG TAB.ER.24H PO SCH (08:07)
[2017-09-09] MEDS: Aspirin 81 MG TAB.CHEW PO SCH (08:07)
[2017-09-09] MEDS: Lactobacillus 1 EACH CAP.SPRINK PO SCH ×2 (08:07→19:54)
[2017-09-09] MEDS: (Saxagliptin Hcl [Onglyza] 5 MG) PO SCH (08:31)
--- NOTE | 2017-09-09 09:43 | Nephrology Consult Note ---
Date of Encounter: 09/09/17 Time of Encounter: 09:00 Assessment and Plan (1) DANIE (acute kidney injury) Current Visit: Yes Status: Acute Non-oliguric DANIE, likely prerenal etiology from the GIB; on CKD stage IIIb ( most likely multifactorial CKD from diabetic nephropathy, HTN, peripheral vascular disease with recent diabetic foot wounds). Agree with gentle volume expansion, and in fact his SCr is trending better during this admission. I reviewed Cardiology's notes and see that the pt may need a LHC: the latest evidence base medicine points toward simply using IVF to minimize ELISA risks (not necessarily bicarb or alkalization of the urine) and that NAC was without benefit. However, given that the standard practice pattern in [place] has included NAC, I'll go ahead and arrange for Mucomyst 600mg po bid x3 days, which as few if any SE potential. Continue 0.9% saline at low flow rates to best optimize him for the LHC. Continue to follow a renal protective/conservative strategy, as able, with strict I/Os, daily weights, renal diet. Thank you for having consulted the [facility] group. Of note, the pt said that 2-3 weeks ago he had seen Dr. Perez in the office. Since today is a Sunday, out of professional courtesy, I'll go ahead and finish the consult today and then recommend the pt have his consult changed to Dr. Perez on Sunday. (2) CKD stage 3 secondary to diabetes Current Visit: Yes Status: Chronic See above (3) GI bleed Current Visit: Yes Status: Acute See above. As per GI. Qualifiers: GI bleed type/associated pathology: anorectal hemorrhage Qualified Code(s) : K62.5 - Hemorrhage of anus and rectum (4) Non-ST elevation myocardial infarction (NSTEMI) Current Visit: Yes Status: Acute See above (5) Essential hypertension Current Visit: No Status: Chronic Would hold his ALINE for now. Monitor BPs and volume status while receiving saline based IVF. History of Present Illness - Reason for Consult Consult date: 09/08/17 Acute Kidney Injury, Chronic Kidney Disease Requesting physician: Whit Pantoja - Chief Complaint DANIE on CKD with GIB and NSTEMI - History of Present Illness Alexander Anguiano is a very pleasant 72 y/o gentleman with a pmh of longstanding T2DM (follows with Radha Finn), HTN, PVD with left foot diabetic wound and CKD stage III and et al who presented with a GIB and was noted to also have an DANIE on CKD stage III plus an NSTEMI with trops in the 4 range. [facility] were consulted for the DANIE on CKD stage III. I reviewed his chart and could not find any prior consult notes in [facility] from nephrology, nor any in [facility] and the [facility], even the scanned section for outside consult notes. When I asked the pt if he's seen "any other kidney doctors", he said "no." Today he did not affirm N/V/D or confusion or any uremic symptoms. He ate breakfast this AM and reported feeling hungry. He denied taking OTC NSAIDs. He did not affirm active chest pain during my interview with him; however, towards the end of our discussion, I asked him if he's been admitted anywhere recently outside the [facility] system. He replied that 2-3 weeks ago [facility] So with further questioning, he said that 2-3 weeks ago he had seen Dr. Perez. Since today is a Sunday, out of professional courtesy, I' ll go ahead and finish the consult today and then recommend the pt have his consult changed to Dr. Perez on Sunday. Past Med Surg Social Fam HX - Past Medical History Medical history: cancer, CHF, coronary artery disease, diabetes, hyperlipidemia , hypertension, malignancy, myocardial infarction, renal disease Psychiatric history: depression - Past Surgical History Surgical History: angioplasty/stent, cataract, coronary bypass (CABG), orthopedic, other - Social History Smoking Status: Never smoker Smokeless Tobacco Status: No Alcohol use: none Drug use: none - Family History Father Living Status: Hx Family Cardiac Disorders: Yes Mother Adopted: No Living Status: Hx Family Cardiac Disorders: Yes Hx Family Cancer: Yes (liver cancer) Medications and Allergies Furosemide [Lasix] 20 mg PO DAILY PRN 12/16/16 [History] Insulin ASPART [Novolog Flexpen] 2 - 10 units SQ TID 12/16/16 [History] Insulin Degludec [Tresiba Flextouch U-100] 80 unit SQ HS 12/16/16 [History] Clopidogrel [Plavix] 75 mg PO DAILY 01/02/17 [History] Finasteride [Proscar] 5 mg PO DAILY 01/02/17 [History] Fluticasone Propionate Nasal [Flonase] 100 mcg NS DAILY PRN 01/02/17 [History] Nitroglycerin [Nitrostat] 0.4 mg SL Q5M PRN 01/02/17 [History] Rosuvastatin [Crestor] 40 mg PO HS 01/02/17 [History] Sertraline [Zoloft] 100 mg PO DAILY 01/02/17 [History] carBAMazepine [Tegretol] 200 mg PO Q12H 01/02/17 [History] Omeprazole [PriLOSEC] 40 mg PO DAILY 01/21/17 [History] Ramipril [Altace] 5 mg PO DAILY 01/21/17 [History] Metoprolol XL (24 HR) Succ [Toprol Xl] 50 mg PO DAILY #30 01/22/17 [Rx] Aspirin Enteric Coated [Aspirin EC] 81 mg PO DAILY 03/14/17 [History] Glimepiride [Amaryl] 4 mg PO BID 04/16/17 [History] Saxagliptin HCl [Onglyza] 5 mg PO DAILY 04/16/17 [History] Isosorbide MONOnitrate (24 HR) [Imdur] 60 mg PO DAILY #30 04/21/17 [Rx] Lactobacillus [Culturelle] 2 each PO DAILY #60 cap.sprink 04/21/17 [Rx] cefTRIAXone [Rocephin] 2,000 mg IVPB DAILY #28 vial 04/21/17 [Rx] hydrALAZINE [HydrALAZINE] 25 mg PO Q8HR #60 tablet 04/21/17 [Rx] Pregabalin [Lyrica] 100 mg PO BID 09/07/17 [History] 3 Allergy/AdvReac Type Severity Reaction Status Date / Time No Known Allergies Allergy Verified 09/07/17 14:43 Review of Systems All Systems: reviewed and no additional remarkable complaints except as stated Exam - Vital Signs Vital signs: Initial Vital Signs Temp Pulse Resp BP Pulse Ox 98.3 F 74 18 155/85 99 09/07/17 11:37 09/07/17 11:37 09/07/17 11:37 09/07/17 11:37 09/07/17 11:37 Vital Signs - Last 8 Hours Temp Pulse Resp BP Pulse Ox 09/09/17 07:15 98.8 F 77 18 180/87 94 09/09/17 04:35 98.6 F 78 16 152/69 95 Intake and Output 09/08/17 09/09/17 09/09/17 23:59 07:59 15:59 Intake Total 210 / 210 1352 / 1352 85 / 85 Balance 210 / 210 1352 / 1352 85 / 85 Intake: IV Fluids 210 / 210 1352 / 1352 85 / 85 0.9 % Sodium Chloride 1,000 ML 1000 / 1000 @ 70 mls/hr IVC .[id number] [facility] Rx #:[id number] Heparin 25,000 UNIT/500 ML D5W 10 / 10 252 / 252 85 / 85 25,000 unit In 500 ml @ 11.4 UNIT/KG/HR 19.939 mls/hr IVC . Q24H DANETTE Rx#:[id number] Flagyl Premix 500 MG/100 ML 500 200 / 200 100 / 100 mg In 100 ml @ 100 mls/hr IVPB Q8H DANETTE Rx#:[id number] Other: Stool Size Copious Large Stool Consistency liquid liquid Stool Color Brown Brown # Urine Diapers 1 # Bowel Movements 1 # Bowel Movement Diapers 1 Weight 88.8 kg Blood Glucose* 276 152 Patient Weight 09/09/17 23:59 Weight 88.8 kg - General Appearance General appearance: well-developed, well-nourished, appears started age EENT: ATNC, PERRL, mucous membranes moist Neck: supple Respiratory: clear Cardiology: edema (trace ankle nonpitting edema bilaterally), regular rate, regular rhythm, normal S1, normal S2 Gastrointestinal: no tenderness, no guarding, no organomegaly Additional Comments: left foot wound Neurologic: no focal deficit, no asterixis, alert and oriented x3 Musculoskeletal: no cyanosis, no clubbing Psychiatric: mood/affect appropriate, cooperative Results - Lab Results 09/09/17 06:34 09/09/17 06:34 Most recent lab results Calcium 8.0 mg/dL (8.6-10.3) L 09/09/17 06:34 Phosphorus 4.1 mg/dL (2.7-4.5) 09/08/17 06:04 Magnesium 1.6 mg/dL (1.6-2.6) 09/08/17 06:04 I reviewed the labs, progress notes, vitals, imaging and med lists. Consult Discharge Plan - Plan Referrals: Royal Pedro MD [Partnered Physician] - (dent web request on 12-08-17 @ [phone]) Jay Chung DO [Resident] - 09/13/17 3:20 pm
[2017-09-09] MEDS: *HR* Acetylcysteine 20% 600 MG/3 ML ORAL SYRINGE PO SCH ×2 (11:49→19:54)
--- NOTE | 2017-09-09 13:35 | Internal Med Progress Note ---
Date of Encounter: 09/09/17 Time of Encounter: 11:30 - Assessment and plan (1) Non-ST elevation myocardial infarction (NSTEMI) Current Visit: Yes Status: Acute Assessment and plan: Cardiology following. Recommend stopping heparin drip at this time. Considering left heart catheterization. Will follow recommendations. Moderate risk for complications. Continue monitoring with telemetry. (2) GI bleed Current Visit: Yes Status: Acute Assessment and plan: Hemoglobin 9.8 today. Appears to be stabilizing. Patient did have some blood clots in his stools. We will continue to monitor blood counts. Continue PPI. Qualifiers: GI bleed type/associated pathology: anorectal hemorrhage Qualified Code(s) : K62.5 - Hemorrhage of anus and rectum (3) Ischemic colitis Current Visit: Yes Status: Acute Assessment and plan: Per colonoscopy and CT scan findings. Continue IV antibiotics and IV hydration. (4) Diabetes mellitus Current Visit: Yes Status: Chronic Assessment and plan: emoglobinblood sugars are elevated. We will increase insulin regimen. Place patient on long-acting insulin. 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 Patient was receiving IV heparin. (6) DANIE (acute kidney injury) Current Visit: Yes Status: Acute Assessment and plan: Improving. Nephrology consult appreciated. Continue IV hydration. (7) CKD (chronic kidney disease) Current Visit: Yes Status: Chronic Assessment and plan: With acute kidney injury. Improving. Qualifiers: Chronic kidney disease stage: stage 3 (moderate) Qualified Code(s): N18.3 - Chronic kidney disease, stage 3 (moderate) (8) CAD (coronary artery disease) Current Visit: Yes Status: Chronic Assessment and plan: Continue aspirin, carvedilol and statin. Qualifiers: Coronary Disease-Associated Artery/Lesion type: bypass graft [place] vs. transplanted heart: [place] heart Associated angina: without angina Qualified Code(s): I25.810 - Atherosclerosis of coronary artery bypass graft(s) without angina pectoris - Time Spent With Patient Total time spent is greater than 50% in coordination of care (as documented) at patient's floor/unit and/or counseling patient: - Subjective Interval history: Patient is doing well today. Denies any chest pain. No palpitations. No shortness of breath. No new episodes of hematemesis or bright red bleeding per rectum. He did have some blood clots in his stools. No abdominal pain at this time. - Constitutional Vitals: Temp Pulse Resp BP Pulse Ox 98.4 F 77 18 141/72 94 09/09/17 11:30 09/09/17 11:30 09/09/17 11:30 09/09/17 11:30 09/09/17 11:30 General appearance: Present: cooperative, A&O X 3, pleasant, no acute distress, answers questions appropriately - Neck Neck exam general surgery: Present: supple, trachea midline. Absent: lymphadenopathy - Respiratory Respiratory exam: Present: CTAB. Absent: accessory muscle use, rales, rhonchi, wheezes - Cardiovascular Cardiovascular exam: Present: RRR, +S1, +S2. Absent: diastolic murmur, gallop, rubs, systolic murmur - GI/Abdominal GI/Abdominal exam: Present: normal bowel sounds, soft, tenderness (Mild right lower quadrant), no peritoneal signs. Absent: distended - Extremities Exam Extremities exam: Present: warm, radial pulses palpable and symmetrical. Absent : calf tenderness, cyanotic, pedal edema - Neurological Exam Neurological exam: Present: CN II-XII intact, oriented X3, no focal deficits. Absent: facial droop, speech deficit - Skin Skin exam: Present: dry, intact Internal Medicine: Result - Labs CBC & Chem 7: 09/09/17 06:34 09/09/17 06:34 Labs: Short CBC 09/09/17 Range/Units 06:34 WBC 8.4 (4.3-11.1) K/mcL Hgb 9.8 L D (12.9-16.9) g/dL Hct 29.5 L (37.5-50.1) % Plt Count 211 (140-400) K/mcL Neutrophils # 5.9 (1.6-8.9) K/mcL BMP 09/09/17 06:34 Sodium 138 Potassium 3.6 Chloride 109 H Carbon Dioxide 23 BUN 26 H Creatinine 2.14 H Glucose 163 H Calcium 8.0 L - ABG Interpretation ABG results: PT/INR, D-dimer PT 11.1 Seconds (9.4-12.1) 09/07/17 11:34 - Impressions Impressions Echocardiogram Limited Views 09/09/17 07:00 Impressions: LVEF 40-45%. LV systolic function appears unchanged when compared to Echo 04/16/17. Normal right ventricular structure and function. Left Ventricular Wall Motion: Rest Echo Findings The apex, apical inferior, mid inferior, basal inferior, apical anterior, mid anterior, basal anterior, apical septal, mid inferior septal, basal inferior septal, apical lateral, mid anterior lateral, basal anterior lateral, mid anterior septal, mid inferior lateral, basal anterior septal and basal inferior lateral schroeder were hypokinetic. Findings: Study Quality * Technically adequate exam. ECG Findings * Normal sinus rhythm. Left Ventricle * LVEF 40-45%. * Normal LV chamber size. * Mild concentric left ventricular hypertrophy. Right Ventricle * Normal right ventricular structure and function. Aorta * Normally sized aortic root. Pericardium * There is no pericardial effusion present. IVC * The IVC is not dilated. - VTE Documentation of Mechanical Device: Intermittent pneumatic compression device Consult Discharge Plan - Plan Referrals: Royal Pedro MD [Partnered Physician] - (dent web request on 12-08-17 @ [phone]) Jay Chung DO [Resident] - 09/13/17 3:20 pm
[2017-09-09] MEDS: Insulin DETEMIR 100 UNIT/ML X5UNITS SQ SCH (19:56)
[2017-09-10] MEDS: Pantoprazole 40 MG VIAL IVP SCH (04:55)
[2017-09-10] MEDS: MetroNIDAZOLE 500 MG/100 ML 500 MG/100 ML BAG IVPB SCH ×3 (04:57→20:30)
[2017-09-10] MEDS: carBAMazepine 200 MG TABLET PO SCH ×2 (04:58→14:13)
[2017-09-10 05:54] LABS: Basophils % 0.3 %; Eosinophils # 0.1 K/mcL (0.0-0.6); Eosinophils % 1.5 %; Hematocrit 29.6 % (37.5-50.1); Hemoglobin 9.9 g/dL (12.9-16.9); Immature Granulocytes % 0.8 % (0-4); Lymphocytes # 1.3 K/mcL (0.6-4.6); Lymphocytes % 20.3 %; Mean Corpuscular HGB Conc 33.4 g/dL (31.6-35.5); Mean Corpuscular Hemoglobin 30.1 pg (28.0-33.3); Mean Platelet Volume 10.8 fL (9.4-12.4); Monocytes # 0.7 K/mcL (0.0-1.3); Monocytes % 9.8 %; Neutrophils # 4.4 K/mcL (1.6-8.9); Platelet Count 213 K/mcL (140-400); Red Blood Count 3.29 M/mcL (4.19-5.50); Red Cell Distribution Width 12.8 % (11.5-14.5); Segmented Neutrophils % 67.3 %
[2017-09-10 06:10] LABS: Calcium 7.8 mg/dL (8.6-10.3); Potassium 3.5 mEq/L (3.5-5.1)
[2017-09-10] MEDS: 0.9 % Sodium Chloride 1,000 ML IVC SCH (08:35)
[2017-09-10] MEDS: hydrALAZINE 25 MG TABLET PO SCH ×3 (08:36→23:30)
[2017-09-10] MEDS: Ranolazine 500 MG TAB.ER.12H PO SCH ×2 (08:36→20:31)
[2017-09-10] MEDS: Isosorbide MONOnitrate (24 HR) 30 MG TAB.ER.24H PO SCH (08:36)
[2017-09-10] MEDS: Aspirin 81 MG TAB.CHEW PO SCH (08:36)
[2017-09-10] MEDS: Lactobacillus 1 EACH CAP.SPRINK PO SCH ×2 (08:36→20:30)
[2017-09-10] MEDS: Finasteride 5 MG TABLET PO SCH (08:36)
[2017-09-10] MEDS: *HR* Acetylcysteine 20% 600 MG/3 ML ORAL SYRINGE PO SCH ×2 (08:37→20:30)
--- NOTE | 2017-09-10 08:51 | Nephrology Progress Note ---
Date of Encounter: 09/10/17 Time of Encounter: 08:49 - Assessment and Plan (1) CKD stage 3 secondary to diabetes Current Visit: Yes Status: Chronic The patient has late stage III chronic kidney disease with proteinuria in the setting of diabetic nephropathy. Patient may require a cardiac catheterization. Blood pressure is suboptimal. Will place the patient on amlodipine for blood pressure control Rest the renal risks of undergoing a cardiac catheterization. The patient understands those risks and is willing to accept him. I would continue the maintenance IV fluids at 70 mL per hour. Patient could also be started on Mucomyst 600 mg twice a day for total of 4 doses beginning the day prior to the heart catheterization. (2) Type 2 diabetes mellitus with diabetic chronic kidney disease Current Visit: Yes Status: Acute Qualifiers: Diabetes mellitus alf insulin use: with termite control service representative use Chronic kidney disease stage: stage 3 (moderate) Qualified Code(s): E11.22 - Type 2 diabetes mellitus with diabetic chronic kidney disease; N18.3 - Chronic kidney disease, stage 3 (moderate); N18.3 - Chronic kidney disease, stage 3 (moderate); Z79.4 - manager long term care (current) use of insulin; Z79.4 - retirement (current) use of insulin; Z79.4 - manager long term care (current) use of insulin; Z79.4 - manager long term care (current) use of insulin (3) Benign hypertension with chronic kidney disease, stage III Current Visit: Yes Status: Acute (4) CAD (coronary artery disease) Current Visit: Yes Status: Chronic Qualifiers: Coronary Disease-Associated Artery/Lesion type: bypass graft [place] vs. transplanted heart: [place] heart Associated angina: without angina Qualified Code(s): I25.810 - Atherosclerosis of coronary artery bypass graft(s) without angina pectoris Subjective Principal diagnosis: GI Bleed, Elevated Trops Interval history: The patient reports she is feeling tired. He denies any chest pain or shortness of breath. Serum creatinine is improved down to 2.20. Baseline is 1.6-2.2. Patient does have a history of late stage III chronic kidney disease in the setting of diabetes along with proteinuria related to diabetic nephropathy. Patient may need to undergo a cardiac catheterization because of an elevated troponin. Patient has a significant history of coronary disease as well as previous CABG and multiple stent placements. Objective - Vital Signs Vital signs: Vital Signs Temp Pulse Resp BP Pulse Ox 09/10/17 07:00 98.8 F 82 18 168/71 94 09/10/17 04:32 98.9 F 75 18 194/87 95 09/09/17 23:17 98.6 F 74 16 190/93 94 09/09/17 19:55 98.4 F 79 17 157/77 96 09/09/17 15:38 98.3 F 77 18 112/60 95 09/09/17 11:30 98.4 F 77 18 141/72 94 Intake and Output 09/09/17 09/10/17 09/10/17 23:59 07:59 15:59 Intake Total 1580 / 1580 Output Total 500 / 500 Balance 1580 / 1580 -500 / -500 Intake: IV Fluids 1100 / 1100 0.9 % Sodium Chloride 1,000 ML 1000 / 1000 @ 70 mls/hr IVC .[id number] [facility] Rx #:[id number] Flagyl Premix 500 MG/100 ML 500 100 / 100 mg In 100 ml @ 100 mls/hr IVPB Q8H [facility] Rx#:[id number] Oral 480 / 480 Output: Urine 500 / 500 Other: Meal Dinner Percent of Meal Consumed 90% Weight 89.1 kg Blood Glucose* 395 212 Patient Weight 09/10/17 23:59 Weight 89.1 kg - General Appearance Exam: The patient is alert and oriented. He is in no acute distress. Blood pressure is 194/87. Lungs [place] breath sounds otherwise clear. Heart regular rate and rhythm with a 2/6 talk ejection murmur. Abdomen is benign. There is minimal lower extremity swelling. - Lab 09/10/17 04:54 09/10/17 04:54 Most recent lab results Calcium 7.8 mg/dL (8.6-10.3) L 09/10/17 04:54 Phosphorus 4.1 mg/dL (2.7-4.5) 09/08/17 06:04 Magnesium 1.6 mg/dL (1.6-2.6) 09/08/17 06:04 - VTE Documentation of Mechanical Device: Graduated compression elastic hosiery Consult Discharge Plan - Plan Referrals: Royal Pedro MD [Partnered Physician] - (dent web request on 12-08-17 @ [phone]) Jay Chung DO [Resident] - 09/13/17 3:20 pm
[2017-09-10] MEDS ORDERED: Acetaminophen 325 MG TABLET PO PRN (09:07)
[2017-09-10] MEDS: Insulin LISPRO 300 UNITS/3 ML VIAL SQ SCH ×4 (09:57→20:31)
[2017-09-10] MEDS: Insulin DETEMIR 100 UNIT/ML X5UNITS SQ SCH ×2 (09:58→20:37)
[2017-09-10] MEDS: amLODIPine 5 MG TABLET PO SCH ×2 (09:58→20:31)
--- NOTE | 2017-09-10 10:05 | Cardiology Progress Note ---
Date of Encounter: 09/10/17 Time of Encounter: 10:00 Assessment and Plan (1) GI bleed Current Visit: Yes Status: Acute Per Cardiology: GI following. Off heparin drip. No further bleeding noted. Current H&H stable around baseline. Qualifiers: GI bleed type/associated pathology: anorectal hemorrhage Qualified Code(s) : K62.5 - Hemorrhage of anus and rectum (2) Non-ST elevation myocardial infarction (NSTEMI) Current Visit: Yes Status: Acute Per Cardiology: Presented with rectal bleeding. Patient reports chronic fatigue. Denies any chest pain symptoms. Trops. were checked by primary service and noted to be 5.66 and now down to 4.17. NSTEMI vs demand ischemia-- GI bleed, chronic anemia , CKD, HTN urgency. However, trops are higher than what would be expected. Of note, EF 40% on echo 04/2017-- current EF 45-50%. On asa, BB, statin, Imdur, Ranexa. H&H and kidney function stable. Upon evaluation today, patient reports about 3-4 weeks ago left-sided facial drooping with slurred speech. He additionally has noticed since that time left hand weakness and left leg weakness. Patient and report did not seek medical attention and this is the first has been mention to anybody. At this juncture, plan to hold off on catheterization and recommend head CT and neurology evaluation. Discussed and reviewed with Dr. Barnes. Discussed with primary service. Cardiology will sign off, reconsult as needed, follow-up arranged. All questions answered. (3) CAD (coronary artery disease) Current Visit: Yes Status: Chronic Per Cardiology: History of CAD with CABG 1 in 2006 at [place] and reported history of 9 total stents with most recent catheterization at [facility] in 2012. We will attempt to obtain these medical records-- none received yet. Qualifiers: Coronary Disease-Associated Artery/Lesion type: bypass graft [place] vs. transplanted heart: [place] heart Associated angina: without angina Qualified Code(s): I25.810 - Atherosclerosis of coronary artery bypass graft(s) without angina pectoris (4) Hypertensive urgency Current Visit: Yes Status: Acute Per Cardiology: Presented with systolic blood pressure in the 210s. Now 150's-160's. Recommend blood pressure optimization, especially in light of suspected most recent stroke. (5) CKD (chronic kidney disease) Current Visit: Yes Status: Chronic Per Cardiology: Appears to have history of CK D stage IIIB - IV. Kidney fxn on arrival slightly higher than baseline, appears improved. Avoid nephrotoxins. Nephrology now following. Qualifiers: Chronic kidney disease stage: stage 3 (moderate) Qualified Code(s): N18.3 - Chronic kidney disease, stage 3 (moderate) Discussion w patient/family: The assessment and plan as outlined above was discussed with the patient and/or family members who expressed understanding and agreement. All questions were answered. Thank you for involving us in the care of your patient. Please call with any questions. Subjective Principal diagnosis: GI Bleed, Elevated Trops Interval history: Patient denies any chest pain, shortness of breath, palpitations. Denies any recurrent bleeding. Nurses confirmed no recent bleeding the past 24 hours. Patient did mention about 3-4 weeks ago had slurred speech with facial drooping. He now has residual left-sided arm and leg weakness. Patient and report did not seek medical attention. Objective Vital Signs, Last 4 Hours Temp Pulse Resp BP Pulse Ox 09/10/17 07:00 98.8 F 82 18 168/71 94 Selected Entries 09/09/17 19:55 09/09/17 23:17 09/10/17 04:32 Blood Pressure 157/77 190/93 194/87 General: Conversant, No Apparent Distress HEENT: Atraumatic, Normocephaly, Mucus Membranes Moist Neck: No JVD, Normal carotid pulses Cardiac: Reg Rate and Rhythm, Normal S1 and S2, No Murmur Lungs: Normal Breath Sounds, No Wheeze, Rales, Rhonchi Neuro: Alert and responsive, No focal deficits noted Abdomen: Soft, Non-Tender Skin: No rashes noted on visualized skin Musculoskeletal: No Chest Wall Tenderness Extremities: No Clubbing, No Cyanosis, No Edema, Normal Pulses Results 09/10/17 04:54 09/10/17 04:54 Lab Results Laboratory Tests 05/29/17 05/29/17 09/07/17 12:40 12:40 11:34 Hgb 10.5 L 10.8 L Hct 32.5 L 32.5 L Creatinine 2.20 H Est GFR (Non-Af Amer) 30 L 09/07/17 09/10/17 09/10/17 11:34 04:54 04:54 Hgb 9.9 L Hct 29.6 L Creatinine 2.69 H 2.20 H Est GFR (Non-Af Amer) 24 L 30 L Impressions Echocardiogram Limited Views 09/09/17 07:00 Impressions: LVEF 40-45%. LV systolic function appears unchanged when compared to Echo 04/16/17. Normal right ventricular structure and function. Left Ventricular Wall Motion: Rest Echo Findings The apex, apical inferior, mid inferior, basal inferior, apical anterior, mid anterior, basal anterior, apical septal, mid inferior septal, basal inferior septal, apical lateral, mid anterior lateral, basal anterior lateral, mid anterior septal, mid inferior lateral, basal anterior septal and basal inferior lateral schroeder were hypokinetic. Findings: Study Quality * Technically adequate exam. ECG Findings * Normal sinus rhythm. Left Ventricle * LVEF 40-45%. * Normal LV chamber size. * Mild concentric left ventricular hypertrophy. Right Ventricle * Normal right ventricular structure and function. Aorta * Normally sized aortic root. Pericardium * There is no pericardial effusion present. IVC * The IVC is not dilated. Active Medications Acetaminophen (Tylenol) 650 mg PO Q6HR PRN PRN Reason: mild to moderate pain Stop: 03/12/18 09:08 Last Admin: 09/10/17 09:58 Dose: 650 mg Acetylcysteine (Acetylcysteine 20%) 600 mg PO BID [facility] Stop: 09/12/17 10:01 Last Admin: 09/10/17 08:37 Dose: 600 mg Amlodipine Besylate (Norvasc) 5 mg PO BID [facility] PRN Reason: Protocol Stop: 03/12/18 09:01 Last Admin: 09/10/17 09:58 Dose: 5 mg Aspirin (Aspirin) 81 mg PO DAILY [facility] Stop: 03/11/18 09:01 Last Admin: 09/10/17 08:36 Dose: 81 mg Carbamazepine (Tegretol) 200 mg PO Q12H [facility] PRN Reason: Protocol Stop: 03/09/18 14:31 Last Admin: 09/10/17 04:58 Dose: 200 mg Carvedilol (Coreg) 6.25 mg PO BIDWM [facility] PRN Reason: Protocol Stop: 03/10/18 17:01 Last Admin: 09/10/17 08:35 Dose: 6.25 mg Dextrose/Water (Dextrose 50% (Syg)) 25 ml IVP Q15MIN PRN PRN Reason: Hypoglycemia Stop: 03/09/18 14:12 Last Admin: 09/07/17 23:38 Dose: 25 ml Finasteride (Proscar) 5 mg PO DAILY [facility] PRN Reason: Protocol Stop: 03/10/18 09:01 Last Admin: 09/10/17 08:36 Dose: 5 mg Hydralazine HCl (Hydralazine) 25 mg PO Q8HR [facility] Stop: 03/09/18 16:01 Last Admin: 09/10/17 08:36 Dose: 25 mg Hydralazine HCl (Hydralazine) 10 mg IVP Q1H PRN PRN Reason: Hypertension Stop: 03/12/18 04:36 Last Admin: 09/10/17 04:55 Dose: 10 mg Sodium Chloride (0.9 % Sodium Chloride) 1,000 mls @ 70 mls/hr IVC .[id number] [facility] Stop: 03/09/18 14:46 Last Admin: 09/10/17 08:35 Dose: 70 mls/hr Ciprofloxacin Lactate (Cipro Premix 400 Mg/200 Ml) 400 mg in 200 mls @ 200 mls/ hr IVPB DAILY [facility] Stop: 03/10/18 12:01 Last Admin: 09/10/17 08:36 Dose: 200 mls/hr Metronidazole (Flagyl Premix 500 Mg/100 Ml) 500 mg in 100 mls @ 100 mls/hr IVPB Q8H [facility] Stop: 03/10/18 12:01 Last Admin: 09/10/17 04:57 Dose: 100 mls/hr Insulin Detemir (Levemir) 10 unit SQ BID [facility] Stop: 03/11/18 21:01 Last Admin: 09/10/17 09:58 Dose: 10 unit Insulin Human Lispro (Humalog) 0 units SQ ACHS [facility] PRN Reason: Protocol Stop: 03/11/18 12:01 Last Admin: 09/10/17 09:57 Dose: 6 units Isosorbide Mononitrate (Imdur) 60 mg PO DAILY [facility] Stop: 03/10/18 09:01 Last Admin: 09/10/17 08:36 Dose: 60 mg Lactobacillus Acidophilus/Rhamnosus (Culturelle) 2 each PO BID [facility] Stop: 03/11/18 21:01 Last Admin: 09/10/17 08:36 Dose: 2 each Naloxone HCl (Narcan) 0.4 mg IVP Q2MIN PRN PRN Reason: SEE COMMENTS Stop: 03/09/18 14:27 Nitroglycerin (Nitroglycerin) 0.4 mg SL Q5M PRN PRN Reason: Chest Pain Stop: 03/09/18 14:30 Pantoprazole Sodium (Protonix) 40 mg IVP Q12HR [facility] Stop: 03/09/18 18:01 Last Admin: 09/10/17 04:55 Dose: 40 mg Ranolazine (Ranexa) 1,000 mg PO BID [facility] Stop: 03/10/18 21:01 Last Admin: 09/10/17 08:36 Dose: 1,000 mg Rosuvastatin Calcium (Crestor) 40 mg PO HS [facility] Stop: 03/09/18 21:01 Last Admin: 09/09/17 19:55 Dose: 40 mg Sertraline HCl (Zoloft) 100 mg PO DAILY [facility] Stop: 03/10/18 09:01 Last Admin: 09/10/17 08:36 Dose: 100 mg - Imaging and Cardiology Echo: report reviewed - VTE Documentation of Mechanical Device: Graduated compression elastic hosiery Consult Discharge Plan - Plan Referrals: Royal Pedro MD [Partnered Physician] - (dent web request on 12-08-17 @ [phone]) Jay Chung DO [Resident] - 09/13/17 3:20 pm
--- NOTE | 2017-09-10 11:17 | Internal Med Progress Note ---
Date of Encounter: 09/10/17 Time of Encounter: 09:30 - Assessment and plan (1) Non-ST elevation myocardial infarction (NSTEMI) Current Visit: Yes Status: Acute Assessment and plan: Completed treatment with IV heparin. Cardiology following. Recommend left heart catheterization but in view of reported recent left-sided weakness and slurred speech. Will get CT scan of the head to rule out acute stroke. Plan for left heart catheterization currently on hold. Continue medical management with aspirin, beta jayde and statin. Moderate risk for complications. (2) GI bleed Current Visit: Yes Status: Acute Assessment and plan: Due to ischemic colitis. Hemoglobin levels are stable. Continue treatment with IV antibiotics. Qualifiers: GI bleed type/associated pathology: anorectal hemorrhage Qualified Code(s) : K62.5 - Hemorrhage of anus and rectum (3) Ischemic colitis Current Visit: Yes Status: Acute Assessment and plan: On IV antibiotics. Also on aspirin and statin. (4) CVA (cerebral vascular accident) Current Visit: Yes Status: Suspected Assessment and plan: Patient with reported recent left upper extremity weakness and slurred speech. Currently does have some mild weakness in his left upper extremity. We will get CT scan of the head to evaluate this further. If CT negative we will also get MRI of the brain. Patient is on aspirin and statin. Qualifiers: CVA mechanism: unspecified Qualified Code(s): I63.9 - Cerebral infarction, unspecified (5) Diabetes mellitus Current Visit: Yes Status: Chronic Assessment and plan: Blood sugars elevated this morning. Will increase long-acting insulin coverage. Qualifiers: Diabetes mellitus type: type 2 Diabetes mellitus termite technician insulin use: with prison use Diabetes mellitus complication status: with neurologic complications Diabetes mellitus complication detail: with polyneuropathy Qualified Code(s): E11.42 - Type 2 diabetes mellitus with diabetic polyneuropathy; Z79.4 - detention (current) use of insulin (6) DANIE (acute kidney injury) Current Visit: Yes Status: Acute Assessment and plan: Stable renal function. Creatinine 2.2 today. Nephrology following. Recommend acetylcysteine prior to left heart catheterization. In the meantime continue gentle IV hydration. (7) CKD (chronic kidney disease) Current Visit: Yes Status: Chronic Qualifiers: Chronic kidney disease stage: stage 3 (moderate) Qualified Code(s): N18.3 - Chronic kidney disease, stage 3 (moderate) (8) CAD (coronary artery disease) Current Visit: Yes Status: Chronic Assessment and plan: On aspirin, beta jayde and statin. Being treated for acute non-ST elevation [place]. Qualifiers: Coronary Disease-Associated Artery/Lesion type: bypass graft [place] vs. transplanted heart: [place] heart Associated angina: without angina Qualified Code(s): I25.810 - Atherosclerosis of coronary artery bypass graft(s) without angina pectoris (9) DVT prophylaxis Current Visit: Yes Status: Acute Assessment and plan: Will place patient on subcutaneous heparin - Time Spent With Patient Total time spent is greater than 50% in coordination of care (as documented) at patient's floor/unit and/or counseling patient: - Subjective Interval history: Patient is awake and alert. Denies any chest pain at this time. Does report that he has had left upper extremity weakness along with some speech abnormalities and left-sided facial droop over the past month. He did not seek medical evaluation for this as his symptoms appeared to be improving with time. No new episodes of bleeding per rectum. - Constitutional Vitals: Temp Pulse Resp BP Pulse Ox 98.8 F 82 18 168/71 94 09/10/17 07:00 09/10/17 07:00 09/10/17 07:00 09/10/17 07:00 09/10/17 07:00 General appearance: Present: cooperative, A&O X 3, pleasant, no acute distress, answers questions appropriately - Neck Neck exam general surgery: Present: supple, trachea midline. Absent: lymphadenopathy - Respiratory Respiratory exam: Present: CTAB. Absent: accessory muscle use, rales, rhonchi, wheezes - Cardiovascular Cardiovascular exam: Present: RRR, +S1, +S2. Absent: diastolic murmur, gallop, rubs, systolic murmur - GI/Abdominal GI/Abdominal exam: Present: normal bowel sounds, soft, tenderness (Right lower quadrant), no peritoneal signs. Absent: distended - Extremities Exam Extremities exam: Present: warm, radial pulses palpable and symmetrical. Absent : calf tenderness, cyanotic, pedal edema - Neurological Exam Neurological exam: Present: CN II-XII intact, oriented X3, no focal deficits, strengths equal and symetr throughout. Absent: facial droop, speech deficit Internal Medicine: Result - Labs CBC & Chem 7: 09/10/17 04:54 09/10/17 04:54 Labs: Short CBC 09/10/17 Range/Units 04:54 WBC 6.6 (4.3-11.1) K/mcL Hgb 9.9 L (12.9-16.9) g/dL Hct 29.6 L (37.5-50.1) % Plt Count 213 (140-400) K/mcL Neutrophils # 4.4 (1.6-8.9) K/mcL BMP 09/10/17 04:54 Sodium 139 Potassium 3.5 Chloride 109 H Carbon Dioxide 22 L BUN 23 Creatinine 2.20 H Glucose 213 H Calcium 7.8 L - ABG Interpretation ABG results: PT/INR, D-dimer PT 11.1 Seconds (9.4-12.1) 09/07/17 11:34 - Impressions Impressions Echocardiogram Limited Views 09/09/17 07:00 Impressions: LVEF 40-45%. LV systolic function appears unchanged when compared to Echo 04/16/17. Normal right ventricular structure and function. Left Ventricular Wall Motion: Rest Echo Findings The apex, apical inferior, mid inferior, basal inferior, apical anterior, mid anterior, basal anterior, apical septal, mid inferior septal, basal inferior septal, apical lateral, mid anterior lateral, basal anterior lateral, mid anterior septal, mid inferior lateral, basal anterior septal and basal inferior lateral schroeder were hypokinetic. Findings: Study Quality * Technically adequate exam. ECG Findings * Normal sinus rhythm. Left Ventricle * LVEF 40-45%. * Normal LV chamber size. * Mild concentric left ventricular hypertrophy. Right Ventricle * Normal right ventricular structure and function. Aorta * Normally sized aortic root. Pericardium * There is no pericardial effusion present. IVC * The IVC is not dilated. Head CT 09/10/17 09:33 IMPRESSION: 1. No acute intracranial abnormality. No acute infarct. 2. Global parenchymal volume loss with chronic microvascular ischemic change. 3. Atherosclerosis. D/ / Kian Gamez MD / Kian Gamez MD Interpreting Provider: Kian Gamez MD - VTE Documentation of Mechanical Device: Graduated compression elastic hosiery Consult Discharge Plan - Plan Referrals: Royal Pedro MD [Partnered Physician] - (dent web request on 12-08-17 @ [phone]) Jay Chung DO [Resident] - 09/13/17 3:20 pm
[2017-09-10] MEDS ORDERED: *HR* Promethazine 25 MG/ML VIAL IVP ONE (14:16)
[2017-09-10] MEDS ORDERED: Ondansetron 4 MG/2 ML VIAL IVP PRN (14:16)
[2017-09-10] MEDS ORDERED: *HR* Dextrose 50 % in Water (Syg) 50 ML SYRINGE IVP PRN (14:55)
[2017-09-10] MEDS ORDERED: Dextrose Gel 15 GM/37.5 ML TUBE PO PRN ×2 (14:55)
[2017-09-10] MEDS ORDERED: D5% in Water 1,000 ML IVC PRN (14:55)
[2017-09-10] MEDS: *HR* Heparin 5,000 UNIT/ML VIAL SQ SCH (17:26)
[2017-09-11] MEDS: MetroNIDAZOLE 500 MG/100 ML 500 MG/100 ML BAG IVPB SCH ×3 (03:01→20:13)
[2017-09-11] MEDS: carBAMazepine 200 MG TABLET PO SCH ×2 (03:01→16:19)
[2017-09-11 05:15] LABS: Basophils % 0.3 %; Eosinophils # 0.2 K/mcL (0.0-0.6); Eosinophils % 2.5 %; Hematocrit 30.3 % (37.5-50.1); Hemoglobin 10.2 g/dL (12.9-16.9); Immature Granulocytes % 0.7 % (0-4); Lymphocytes # 1.3 K/mcL (0.6-4.6); Lymphocytes % 20.9 %; Mean Corpuscular HGB Conc 33.7 g/dL (31.6-35.5); Mean Corpuscular Volume 89.1 fL (83.0-100.0); Mean Platelet Volume 10.3 fL (9.4-12.4); Monocytes # 0.5 K/mcL (0.0-1.3); Monocytes % 8.3 %; Neutrophils # 4.1 K/mcL (1.6-8.9); Platelet Count 225 K/mcL (140-400); Red Cell Distribution Width 13.1 % (11.5-14.5); Segmented Neutrophils % 67.3 %
[2017-09-11 05:31] LABS: Albumin 2.6 g/dL (3.5-5.7); Albumin/Globulin Ratio 0.8 (1.1-2.2); Bilirubin,Total 0.2 mg/dL (0.3-1.0); Globulin 3.1 g/dL (2.4-3.5); Potassium 3.3 mEq/L (3.5-5.1); Total Protein 5.7 g/dL (6.4-8.9)
[2017-09-11] MEDS: *HR* Heparin 5,000 UNIT/ML VIAL SQ SCH ×2 (06:17→17:16)
[2017-09-11] MEDS: 0.9 % Sodium Chloride 1,000 ML IVC SCH (06:17)
[2017-09-11] MEDS: Insulin LISPRO 300 UNITS/3 ML VIAL SQ SCH ×4 (07:15→21:49)
[2017-09-11] MEDS: hydrALAZINE 25 MG TABLET PO SCH ×3 (07:18→23:34)
--- NOTE | 2017-09-11 07:52 | Nephrology Progress Note ---
Date of Encounter: 09/11/17 Time of Encounter: 07:50 - Assessment and Plan (1) CKD stage 3 secondary to diabetes Current Visit: Yes Status: Chronic The patient has late stage III chronic kidney disease with proteinuria in the setting of diabetic nephropathy. The patient's blood pressures improving. He is not going to undergo a cardiac catheterization during this hospitalization according to cardiology so we can discontinue the maintenance IV fluids. He will receive some potassium supplementation. (2) Type 2 diabetes mellitus with diabetic chronic kidney disease Current Visit: Yes Status: Acute Qualifiers: Diabetes mellitus ferry terminal agent insulin use: with group home use Chronic kidney disease stage: stage 3 (moderate) Qualified Code(s): E11.22 - Type 2 diabetes mellitus with diabetic chronic kidney disease; N18.3 - Chronic kidney disease, stage 3 (moderate); N18.3 - Chronic kidney disease, stage 3 (moderate); Z79.4 - buttermaker (current) use of insulin; Z79.4 - senior care (current) use of insulin; Z79.4 - senior care (current) use of insulin; Z79.4 - buttermaker (current) use of insulin (3) Benign hypertension with chronic kidney disease, stage III Current Visit: Yes Status: Acute (4) CAD (coronary artery disease) Current Visit: Yes Status: Chronic Qualifiers: Coronary Disease-Associated Artery/Lesion type: bypass graft [place] vs. transplanted heart: [place] heart Associated angina: without angina Qualified Code(s): I25.810 - Atherosclerosis of coronary artery bypass graft(s) without angina pectoris Subjective Principal diagnosis: GI Bleed, Elevated Trops Interval history: The patient denies any new complaints. He denies having any chest pain, shortness of breath, or additional rectal bleeding. Creatinine is stable at 2.14 which is close to the patient's baseline. Urine output is satisfactory. Most recent blood pressures 135/81. Potassium is a bit low at 3.3. Objective - Vital Signs Vital signs: Vital Signs Temp Pulse Resp BP Pulse Ox 09/11/17 06:30 98.3 F 75 18 182/93 95 09/11/17 04:07 97.9 F 74 19 167/85 94 09/11/17 00:05 98.0 F 67 17 135/81 96 09/10/17 20:00 65 09/10/17 18:48 97.8 F 69 17 107/80 95 09/10/17 15:31 97.4 F L 75 16 109/66 99 09/10/17 11:43 98.4 F 79 16 119/71 96 Intake and Output 09/10/17 09/10/17 09/11/17 15:59 23:59 07:59 Intake Total 1240 / 1240 1200 / 1200 Output Total 350 / 350 275 / 275 Balance 890 / 890 925 / 925 Intake: IV Fluids 1000 / 1000 1200 / 1200 0.9 % Sodium Chloride 1,000 ML 1000 / 1000 1000 / 1000 @ 70 mls/hr IVC .[id number] [facility] Rx #:[id number] Flagyl Premix 500 MG/100 ML 500 200 / 200 mg In 100 ml @ 100 mls/hr IVPB Q8H [facility] Rx#:[id number] Oral 240 / 240 Output: Urine 350 / 350 275 / 275 Other: Meal Lunch Dinner Percent of Meal Consumed 50% 50% Weight 89.1 kg Blood Glucose* 281 176 71 - General Appearance Exam: Patient is alert and oriented. He is in no acute distress. Lungs diminished breath sounds in the bases otherwise clear. Heart regular rate and rhythm with a 2/6 talk ejection murmur. Abdomen is benign. There is no lower extremity swelling. - Lab 09/11/17 04:44 09/11/17 04:44 Most recent lab results Calcium 8.0 mg/dL (8.6-10.3) L 09/11/17 04:44 Phosphorus 4.1 mg/dL (2.7-4.5) 09/08/17 06:04 Magnesium 1.6 mg/dL (1.6-2.6) 09/08/17 06:04 - VTE Documentation of Mechanical Device: Graduated compression elastic hosiery Consult Discharge Plan - Plan Referrals: Royal Pedro MD [Partnered Physician] - (sent web request on 12-08-17 @ [phone]) Jay Chung DO [Resident] - 09/13/17 3:20 pm
[2017-09-11] MEDS: Ranolazine 500 MG TAB.ER.12H PO SCH ×2 (08:52→20:14)
[2017-09-11] MEDS: Finasteride 5 MG TABLET PO SCH (08:52)
[2017-09-11] MEDS: Lactobacillus 1 EACH CAP.SPRINK PO SCH ×2 (08:53→20:14)
[2017-09-11] MEDS: Isosorbide MONOnitrate (24 HR) 30 MG TAB.ER.24H PO SCH (08:53)
[2017-09-11] MEDS: amLODIPine 5 MG TABLET PO SCH ×2 (08:53→20:14)
[2017-09-11] MEDS: Insulin DETEMIR 100 UNIT/ML X5UNITS SQ SCH ×2 (08:53→21:50)
[2017-09-11] MEDS: *HR* Acetylcysteine 20% 600 MG/3 ML ORAL SYRINGE PO SCH ×2 (08:53→20:14)
[2017-09-11] MEDS: Aspirin 81 MG TAB.CHEW PO SCH (08:53)
--- NOTE | 2017-09-11 12:27 | Internal Med Progress Note ---
Date of Encounter: 09/11/17 Time of Encounter: 12:25 - Assessment and plan (1) Ischemic colitis Current Visit: Yes Status: Acute Assessment and plan: Acute blood loss anemia secondary to acute ischemic colitis, stable and tolerating diet Had a colonoscopy confirming acute ischemic colitis findings Continue IV ciprofloxacin and Flagyl day #4 (2) Non-ST elevation myocardial infarction (NSTEMI) Current Visit: Yes Status: Acute Assessment and plan: Completed treatment with IV heparin. Cardiology recommended left heart catheterization but in view of reported recent left-sided weakness and slurred speech, acute renal failure and also ischemic colitis, it was put on hold. Continue medical management with aspirin, beta jayde and statin. Moderate risk for complications. Will need to most likely follow-up as an outpatient (3) CAD (coronary artery disease) Current Visit: Yes Status: Chronic Assessment and plan: History of CABG and multiple stents On aspirin, beta jayde and statin. Qualifiers: Coronary Disease-Associated Artery/Lesion type: bypass graft [place] vs. transplanted heart: [place] heart Associated angina: without angina Qualified Code(s): I25.810 - Atherosclerosis of coronary artery bypass graft(s) without angina pectoris (4) CKD (chronic kidney disease) Current Visit: Yes Status: Chronic Assessment and plan: With acute kidney injury. Improved. Qualifiers: Chronic kidney disease stage: stage 3 (moderate) Qualified Code(s): N18.3 - Chronic kidney disease, stage 3 (moderate) (5) GI bleed Current Visit: Yes Status: Acute Assessment and plan: Acute blood lows anemia Due to ischemic colitis. Hemoglobin levels are stable. Qualifiers: GI bleed type/associated pathology: anorectal hemorrhage Qualified Code(s) : K62.5 - Hemorrhage of anus and rectum (6) DANIE (acute kidney injury) Current Visit: Yes Status: Acute Assessment and plan: Acute on chronic renal failure, history of CKD3 Creatinine 2.2 today. Nephrology following. IV hydration discontinued. (7) CVA (cerebral vascular accident) Current Visit: Yes Status: Suspected Assessment and plan: No evidence of acute stroke Patient with reported recent left upper extremity weakness and slurred speech. Currently does have some mild weakness in his left upper extremity. CT scan of the head showed: No acute intracranial abnormality. Degenerative changes of the mid to lower cervical spine. No evidence for acute fracture or malalignment. MRI of the brain showed: 1. Small focus of hyperintensity on the diffusion- weighted sequence within the posterior right frontal lobe white matter. No corresponding decreased ADC signal intensity is seen suggesting a subacute infarct. 2. No acute intracranial abnormality. No acute infarct. 3. Mild global parenchymal volume loss with chronic microvascular ischemic change. 4. Minimal encephalomalacia involving the right parietal lobe, which may represent sequelae of prior ischemic or traumatic insult. 5. There is an 8 mm extra-axial mass along the right inferior frontal lobe, which could represent a meningioma. Consider correlation with postcontrast imaging. Patient is on aspirin and statin. Qualifiers: CVA mechanism: unspecified Qualified Code(s): I63.9 - Cerebral infarction, unspecified (8) Diabetes mellitus Current Visit: Yes Status: Chronic Assessment and plan: Decrease Levemir down to 15 units twice a day Qualifiers: Diabetes mellitus type: type 2 Diabetes mellitus feed crusher insulin use: with feed crusher use Diabetes mellitus complication status: with neurologic complications Diabetes mellitus complication detail: with polyneuropathy Qualified Code(s): E11.42 - Type 2 diabetes mellitus with diabetic polyneuropathy; Z79.4 - statement request clerk (current) use of insulin - Time Spent With Patient Total time spent is greater than 50% in coordination of care (as documented) at patient's floor/unit and/or counseling patient: - Subjective Interval history: Denies any chest pressures or breath, no bleeding per rectum since Sunday, denies any abdominal pain, no diarrhea or dysuria, feels weak - Constitutional Vitals: Temp Pulse Resp BP Pulse Ox 98.3 F 68 18 142/79 96 09/11/17 10:45 09/11/17 10:45 09/11/17 10:45 09/11/17 10:45 09/11/17 10:45 General appearance: Present: cooperative, A&O X 3, pleasant, no acute distress, answers questions appropriately - Head Head exam: Present: atraumatic, normocephalic - Eye Eye exam: Present: PERRL, conjuntiva pink, sclera anicteric Pupils: Present: PERRL - Neck Neck exam general surgery: Present: supple, trachea midline. Absent: lymphadenopathy - Respiratory Respiratory exam: Present: CTAB. Absent: accessory muscle use, rales, rhonchi, wheezes - Cardiovascular Cardiovascular exam: Present: RRR, +S1, +S2. Absent: diastolic murmur, gallop, rubs, systolic murmur - GI/Abdominal GI/Abdominal exam: Present: normal bowel sounds, soft, no peritoneal signs. Absent: distended, tenderness - Extremities Exam Extremities exam: Present: warm, radial pulses palpable and symmetrical. Absent : calf tenderness, cyanotic, pedal edema - Neurological Exam Neurological exam: Present: CN II-XII intact, oriented X3, no focal deficits. Absent: pronater drift, facial droop, speech deficit - Skin Skin exam: Present: dry, intact Internal Medicine: Result - Labs CBC & Chem 7: 09/11/17 04:44 09/11/17 04:44 Labs: Short CBC 09/11/17 Range/Units 04:44 WBC 6.1 (4.3-11.1) K/mcL Hgb 10.2 L (12.9-16.9) g/dL Hct 30.3 L (37.5-50.1) % Plt Count 225 (140-400) K/mcL Neutrophils # 4.1 (1.6-8.9) K/mcL BMP 09/11/17 04:44 Sodium 142 Potassium 3.3 L Chloride 112 H Carbon Dioxide 19 L BUN 20 Creatinine 2.14 H Glucose 82 Calcium 8.0 L Liver Function 09/11/17 Range/Units 04:44 Total Bilirubin 0.2 L (0.3-1.0) mg/dL AST 9 L (13-39) Units/L ALT 7 (7-52) Units/L Alkaline Phosphatase 50 (34-104) Units/L Albumin 2.6 L (3.5-5.7) g/dL - ABG Interpretation ABG results: PT/INR, D-dimer PT 11.1 Seconds (9.4-12.1) 09/07/17 11:34 - Impressions Impressions Brain MRI 09/10/17 11:31 IMPRESSION: 1. Small focus of hyperintensity on the diffusion-weighted sequence within the posterior right frontal lobe white matter. No corresponding decreased ADC signal intensity is seen suggesting a subacute infarct. 2. No acute intracranial abnormality. No acute infarct. 3. Mild global parenchymal volume loss with chronic microvascular ischemic change. 4. Minimal encephalomalacia involving the right parietal lobe, which may represent sequelae of prior ischemic or traumatic insult. 5. There is an 8 mm extra-axial mass along the right inferior frontal lobe, which could represent a meningioma. Consider correlation with postcontrast imaging. D/ / Kian Gamez MD / Kian Gamez MD Interpreting Provider: Kian Gamez MD - VTE Documentation of Mechanical Device: Graduated compression elastic hosiery Consult Discharge Plan - Plan Referrals: Royal Pedro MD [Partnered Physician] - (sent web request on 12-08-17 @ [id number]) Jay Chung DO [Resident] - 09/13/17 3:20 pm
[2017-09-12] MEDS: carBAMazepine 200 MG TABLET PO SCH (03:27)
[2017-09-12] MEDS: MetroNIDAZOLE 500 MG/100 ML 500 MG/100 ML BAG IVPB SCH (03:27)
[2017-09-12] MEDS: *HR* Heparin 5,000 UNIT/ML VIAL SQ SCH (05:17)
[2017-09-12 05:50] LABS: Calcium 8.2 mg/dL (8.6-10.3); Potassium 3.8 mEq/L (3.5-5.1)
[2017-09-12 07:02] VITALS: BP 174/85
[2017-09-12] MEDS: Isosorbide MONOnitrate (24 HR) 30 MG TAB.ER.24H PO SCH (08:02)
[2017-09-12] MEDS: Ranolazine 500 MG TAB.ER.12H PO SCH (08:02)
[2017-09-12] MEDS: Aspirin 81 MG TAB.CHEW PO SCH (08:03)
[2017-09-12] MEDS: Finasteride 5 MG TABLET PO SCH (08:03)
[2017-09-12] MEDS: hydrALAZINE 25 MG TABLET PO SCH (08:03)
[2017-09-12] MEDS: amLODIPine 5 MG TABLET PO SCH (08:03)
[2017-09-12] MEDS: Lactobacillus 1 EACH CAP.SPRINK PO SCH (08:03)
[2017-09-12] MEDS: Insulin LISPRO 300 UNITS/3 ML VIAL SQ SCH (08:04)
[2017-09-12] MEDS: *HR* Acetylcysteine 20% 600 MG/3 ML ORAL SYRINGE PO SCH (08:04)
[2017-09-12] MEDS: Insulin DETEMIR 100 UNIT/ML X5UNITS SQ SCH (08:11)
--- NOTE | 2017-09-12 08:47 | Cardiology Progress Note ---
Date of Encounter: 09/12/17 Time of Encounter: 09:00 Assessment and Plan (1) Hematochezia Current Visit: Yes Status: Acute Ischemic colitis with GI bleed, will continue medical therapy and plan on [facility] as outpatient to allow time for large intestinal healing (2) Colitis Current Visit: Yes Status: Acute per primary team (3) Non-ST elevation myocardial infarction (NSTEMI) Current Visit: Yes Status: Acute Per Cardiology: Presented with rectal bleeding. Patient reports chronic fatigue. Denies any chest pain symptoms. Trops. were checked by primary service and noted to be 5.66 and now down to 4.17. NSTEMI vs demand ischemia-- GI bleed, chronic anemia , CKD, HTN urgency. However, trops are higher than what would be expected. Of note, EF 40% on echo 04/2017-- current EF 45-50%. On asa, BB, statin, Imdur, Ranexa. H&H and kidney function stable. Upon evaluation today, patient reports about 3-4 weeks ago left-sided facial drooping with slurred speech. He additionally has noticed since that time left hand weakness and left leg weakness. Patient and report did not seek medical attention and this is the first has been mention to anybody. At this juncture, plan to hold off on catheterization and recommend head CT and neurology evaluation. Discussed and reviewed with Dr. Barnes. Discussed with primary service. Cardiology will sign off, reconsult as needed, follow-up arranged. All questions answered. (4) CKD stage 3 secondary to diabetes Current Visit: Yes Status: Chronic (5) Systolic CHF with reduced left ventricular function, NYHA class 2 Current Visit: Yes Status: Acute Discussion w patient/family: The assessment and plan as outlined above was discussed with the patient and/or family members who expressed understanding and agreement. All questions were answered. Thank you for involving us in the care of your patient. Please call with any questions. Subjective Principal diagnosis: GI Bleed, Elevated Trops Objective Vital Signs, Last 4 Hours Temp Pulse Resp BP Pulse Ox 09/12/17 07:00 82 09/12/17 06:57 97.6 F 77 20 174/85 95 Results 09/11/17 04:44 09/12/17 04:54 Lab Results 09/12/17 04:54 Sodium 137 Potassium 3.8 Chloride 109 H Carbon Dioxide 20 L BUN 18 Creatinine 1.88 H Glucose 117 H Calcium 8.2 L - VTE Documentation of Mechanical Device: Graduated compression elastic hosiery Consult Discharge Plan - Plan Referrals: Royal Pedro MD [Partnered Physician] - (sent web request on 12-08-17 @ [phone]) Jay Chung DO [Resident] - 09/13/17 3:20 pm
--- NOTE | 2017-09-12 08:51 | Discharge Summary ---
- NOTES TO OUTPATIENT PROVIDER Notes to Outpatient Provider: Follow-up with primary care physician within the next 7 days. Follow-up with cardiology within the next 7 days. Continue Ranexa , aspirin and Plavix. Stop metoprolol and start carvedilol. Increase hydralazine up to 50 mg 3 times a day. Continue 3 more days of metronidazole and ciprofloxacin. Follow-up with GI within the next 3 weeks. Start amlodipine 10 mg daily, continue omeprazole Date of Encounter: 09/12/17 Time of Encounter: 08:49 - Discharge Diagnosis (1) Ischemic colitis Priority: Primary Status: Acute Assessment and Plan: Acute blood loss anemia secondary to acute ischemic colitis, stable and tolerating diet (2) Non-ST elevation myocardial infarction (NSTEMI) Priority: Primary Status: Acute Assessment and Plan: Completed treatment with IV heparin. Cardiology recommended left heart catheterization but in view of reported recent left-sided weakness and slurred speech, acute renal failure and also ischemic colitis, it was put on hold. Continue medical management with aspirin, beta jayde and statin. Moderate risk for complications. Will need to most likely follow-up as an outpatient (3) CAD (coronary artery disease) Priority: Secondary Status: Chronic Assessment and Plan: History of CABG and multiple stents On aspirin, beta jayde and statin. Qualifiers: Qualified Code(s): I25.810 - Atherosclerosis of coronary artery bypass graft( s) without angina pectoris (4) CKD (chronic kidney disease) Priority: Secondary Status: Chronic Assessment and Plan: With acute kidney injury. Improved. Qualifiers: Qualified Code(s): N18.3 - Chronic kidney disease, stage 3 (moderate) (5) GI bleed Priority: Primary Status: Acute Assessment and Plan: Acute blood lows anemia Due to ischemic colitis. Hemoglobin levels are stable. Qualifiers: Qualified Code(s): K62.5 - Hemorrhage of anus and rectum (6) DANIE (acute kidney injury) Priority: Secondary Status: Acute Assessment and Plan: Acute on chronic renal failure, history of CKD3 Creatinine 2.2 today. Nephrology following. IV hydration discontinued. (7) CVA (cerebral vascular accident) Priority: Secondary Status: Suspected Assessment and Plan: No evidence of acute stroke . Qualifiers: Qualified Code(s): I63.9 - Cerebral infarction, unspecified (8) Diabetes mellitus Priority: Secondary Status: Chronic Qualifiers: Qualified Code(s): E11.42 - Type 2 diabetes mellitus with diabetic polyneuropathy; Z79.4 - exterminator helper termite (current) use of insulin; Z79.4 - FDC ( current) use of insulin; Z79.4 - exterminator helper termite (current) use of insulin; Z79.4 - exterminator helper termite (current) use of insulin Hospital course: Mr. Anguiano is a 72 year old male with a relevant past medical history of diabetes mellitus not insulin dep, hypertension, CAD with history of CABG and stenting, hypertension, hyperlipidemia, CKD3. Patient presented to the emergency room with bleeding per rectum ( bright red blood). Claimed this was going on for more than 48 hours. . Patient denies chest pain, conservation, nausea, vomiting, fever or chills. Patient also denies any abdominal pain. Noted that patient was on aspirin and Plavix. CT scan of the abdomen showed a rectosigmoid junctional area where there is a possibility of a colon cancer/neoplasm. The GI service was consulted and a colonoscopy was scheduled showing evidence of ischemic colitis. The patient was started on Cipro IV and Flagyl IV. Troponin was 5.66. Cardiology was consulted Last seen by Dr. Montgomery August 2017. Reports past history of diabetic leg wounds , however denies any active wounds or infection. Did report chronic fatigue, unchanged from baseline. Prior to admission he denies any chest pain, shortness of breath, palpitations, dizziness, syncope, falls. Reports last catheterization around 2012. Confirmed compliance with medications and takes Ranexa 500 mg by mouth twice a day. Cardiology recommended follow-up as an outpatient to schedule a cardiac catheterization. During his hospitalization he developed left upper extremity weakness and slurred speech, which resolved. CT scan of the head showed: No acute intracranial abnormality. Degenerative changes of the mid to lower cervical spine. No evidence for acute fracture or malalignment. MRI of the brain showed: 1. Small focus of hyperintensity on the diffusion- weighted sequence within the posterior right frontal lobe white matter. No corresponding decreased ADC signal intensity is seen suggesting a subacute infarct. 2. No acute intracranial abnormality. No acute infarct. 3. Mild global parenchymal volume loss with chronic microvascular ischemic change. 4. Minimal encephalomalacia involving the right parietal lobe, which may represent sequelae of prior ischemic or traumatic insult. 5. There is an 8 mm extra-axial mass along the right inferior frontal lobe, which could represent a meningioma. Consider correlation with postcontrast imaging. Nephrology was consulted as the patient's renal function worsened, creatinine increased up to 2.69, improved with IVF, today it is 1.88, last hemoglobin was 10.2. The patient was recommended to go to a rehabilitation facility but he is refusing to do so. Continue ciprofloxacin and Flagyl for 3 more days - Time Spent with Patient Total time spent providing and/or coordinating discharge services: Greater than 30 minutes (40 min) - Discharge Medications Prescriptions: amLODIPine [Norvasc] 10 mg PO DAILY #30 tablet Carvedilol [Coreg] 12.5 mg PO BIDWM #60 tablet Ciprofloxacin HCl [Cipro] 500 mg PO BID #6 tablet metroNIDAZOLE [Flagyl] 500 mg PO TID #9 tablet Ranolazine [Ranexa] 1,000 mg PO BID #60 tab.er.12h Home Medications: Furosemide [Lasix] 20 mg PO DAILY PRN 12/16/16 [History] Insulin ASPART [Novolog Flexpen] 2 - 10 units SQ TID 12/16/16 [History] Insulin Degludec [Tresiba Flextouch U-100] 80 unit SQ HS 12/16/16 [History] Clopidogrel [Plavix] 75 mg PO DAILY 01/02/17 [History] Finasteride [Proscar] 5 mg PO DAILY 01/02/17 [History] Fluticasone Propionate Nasal [Flonase] 100 mcg NS DAILY PRN 01/02/17 [History] Nitroglycerin [Nitrostat] 0.4 mg SL Q5M PRN 01/02/17 [History] Rosuvastatin [Crestor] 40 mg PO HS 01/02/17 [History] Sertraline [Zoloft] 100 mg PO DAILY 01/02/17 [History] carBAMazepine [Tegretol] 200 mg PO Q12H 01/02/17 [History] Omeprazole [PriLOSEC] 40 mg PO DAILY 01/21/17 [History] Ramipril [Altace] 5 mg PO DAILY 01/21/17 [History] Aspirin Enteric Coated [Aspirin EC] 81 mg PO DAILY 03/14/17 [History] Glimepiride [Amaryl] 4 mg PO BID 04/16/17 [History] Saxagliptin HCl [Onglyza] 5 mg PO DAILY 04/16/17 [History] Isosorbide MONOnitrate (24 HR) [Imdur] 60 mg PO DAILY #30 04/21/17 [Rx] Lactobacillus [Culturelle] 2 each PO DAILY #60 cap.sprink 04/21/17 [Rx] Pregabalin [Lyrica] 100 mg PO BID 09/07/17 [History] Carvedilol [Coreg] 12.5 mg PO BIDWM #60 tablet 09/12/17 [Rx] Ciprofloxacin HCl [Cipro] 500 mg PO BID #6 tablet 09/12/17 [Rx] Ranolazine [Ranexa] 1,000 mg PO BID #60 tab.er.12h 09/12/17 [Rx] amLODIPine [Norvasc] 10 mg PO DAILY #30 tablet 09/12/17 [Rx] hydrALAZINE [HydrALAZINE] 50 mg PO Q8HR #90 tablet 09/12/17 [Rx] metroNIDAZOLE [Flagyl] 500 mg PO TID #9 tablet 09/12/17 [Rx] Allergies/Adverse Reactions: 3 Allergy/AdvReac Type Severity Reaction Status Date / Time No Known Allergies Allergy Verified 09/07/17 14:43 Date of admission: 09/07/17 14:35 Primary care physician: Raoul Gaona Consults: 09/07/17 17:09 Consult to Cardiology [CONS] Stat Comment: Consulting Provider: Cardiology Radha Reason for Consult: Elevated troponin Call Completed: Yes 09/08/17 14:25 Consult to Cardiac Rehabilitation-Phase1 [CONS] Routine Comment: Reason for Consult: elevated trop Call Completed: No 09/08/17 14:38 Consult to Nephrology [CONS] Routine Consulting Provider: Kidney Radha/SARATH/NILS/BROOKS Reason for Consult: CKD patient with NSTEMi Call Completed: Yes 09/09/17 13:30 Consult to Nephrology [CONS] Routine Consulting Provider: Kidney & HTN [place] BOWLING Reason for Consult: DANIE on CKD Call Completed: No 09/10/17 10:06 Consult to Occupational Therapy [CONS] Routine Comment: Evaluate, develop and implement POC Reason for Consult: Probable stroke <1 month ago with mild Left side weakness Does patient have active BEDREST order?: No Is patient medically & hemodynamically stable?: Yes Patient assessed for mobility or mobilized this visit?: Yes Consult to Physical Therapy [CONS] Routine Comment: Evaluate, develop and implement POC Reason for Consult: Probable stroke < 1month with mild L side deficit Does patient have active BEDREST order?: No Is patient medically & hemodynamically stable?: Yes Patient assessed for mobility or mobilized this visit?: Yes - Constitutional Vitals: Temp Pulse Resp BP Pulse Ox 97.6 F 82 20 174/85 95 09/12/17 06:57 09/12/17 07:00 09/12/17 06:57 09/12/17 06:57 09/12/17 06:57 General appearance: Present: cooperative, A&O X 3, pleasant, no acute distress, answers questions appropriately Exam: - Head Head exam: Present: atraumatic, normocephalic - Eye Eye exam: Present: PERRL, conjuntiva pink, sclera anicteric Pupils: Present: PERRL - Neck Neck exam general surgery: Present: supple, trachea midline. Absent: lymphadenopathy - Respiratory Respiratory exam: Present: CTAB. Absent: accessory muscle use, rales, rhonchi, wheezes - Cardiovascular Cardiovascular exam: Present: RRR, +S1, +S2. Absent: diastolic murmur, gallop, rubs, systolic murmur - GI/Abdominal GI/Abdominal exam: Present: normal bowel sounds, soft, no peritoneal signs. Absent: distended, tenderness - Extremities Exam Extremities exam: Present: warm, radial pulses palpable and symmetrical. Absent : calf tenderness, cyanotic, pedal edema - Neurological Exam Neurological exam: Present: CN II-XII intact, oriented X3, no focal deficits. Absent: pronater drift, facial droop, speech deficit - Skin Skin exam: Present: dry, intact - Patient Status Disposition: Home Health Service Condition: Fair Overall status at discharge: patient is progressing back to baseline - Discharge Instructions Follow Up With: Royal Pedro MD [Partnered Physician] - (sent web request on 12-08-17 @ [id number]) Jay Chung DO [Resident] - 09/13/17 3:20 pm - Diet and Activity Activity: increase activity as tolerated Diet: low fat, low cholesterol - VTE Documentation of Mechanical Device: Graduated compression elastic hosiery
--- NOTE | 2017-09-12 09:11 | Physician Discharge Referral ---
Home Health/Hosp Referral Info Transfer to: Home Health Provider in Charge Post Discharge: PCP - Diagnosis (1) Ischemic colitis Status: Acute (2) Non-ST elevation myocardial infarction (NSTEMI) Status: Acute (3) CAD (coronary artery disease) Status: Chronic (4) CKD (chronic kidney disease) Status: Chronic (5) GI bleed Status: Acute (6) DANIE (acute kidney injury) Status: Acute (7) CVA (cerebral vascular accident) Status: Suspected (8) Diabetes mellitus Status: Chronic - Respiratory Orders Smoking Cessation: Smoking cessation has been advised. For more information, call the [place] Tobacco Quit Line at 7-031-ELIC-NOW. - Diet/Nutrition Diet/Nutrition Orders: No Added Salt (SHAY) - Services Needed Following services are medically necessary services: Home Health Aide, Physical Therapy, Occupational Therapy Home Care Orders: Follow-up with primary care physician within the next 7 days. Follow-up with cardiology within the next 7 days. Continue Ranexa, aspirin and Plavix. Stop metoprolol and start carvedilol. Increase hydralazine up to 50 mg 3 times a day. Continue 3 more days of metronidazole and ciprofloxacin. Follow-up with GI within the next 3 weeks. Start amlodipine 10 mg daily, continue omeprazole - Transfer Medications Prescriptions: amLODIPine [Norvasc] 10 mg PO DAILY #30 tablet Carvedilol [Coreg] 12.5 mg PO BIDWM #60 tablet Ciprofloxacin HCl [Cipro] 500 mg PO BID #6 tablet metroNIDAZOLE [Flagyl] 500 mg PO TID #9 tablet Ranolazine [Ranexa] 1,000 mg PO BID #60 tab.er.12h Home Medications: Furosemide [Lasix] 20 mg PO DAILY PRN 12/16/16 [History] Insulin ASPART [Novolog Flexpen] 2 - 10 units SQ TID 12/16/16 [History] Insulin Degludec [Tresiba Flextouch U-100] 80 unit SQ HS 12/16/16 [History] Clopidogrel [Plavix] 75 mg PO DAILY 01/02/17 [History] Finasteride [Proscar] 5 mg PO DAILY 01/02/17 [History] Fluticasone Propionate Nasal [Flonase] 100 mcg NS DAILY PRN 01/02/17 [History] Nitroglycerin [Nitrostat] 0.4 mg SL Q5M PRN 01/02/17 [History] Rosuvastatin [Crestor] 40 mg PO HS 01/02/17 [History] Sertraline [Zoloft] 100 mg PO DAILY 01/02/17 [History] carBAMazepine [Tegretol] 200 mg PO Q12H 01/02/17 [History] Omeprazole [PriLOSEC] 40 mg PO DAILY 01/21/17 [History] Ramipril [Altace] 5 mg PO DAILY 01/21/17 [History] Aspirin Enteric Coated [Aspirin EC] 81 mg PO DAILY 03/14/17 [History] Glimepiride [Amaryl] 4 mg PO BID 04/16/17 [History] Saxagliptin HCl [Onglyza] 5 mg PO DAILY 04/16/17 [History] Isosorbide MONOnitrate (24 HR) [Imdur] 60 mg PO DAILY #30 04/21/17 [Rx] Lactobacillus [Culturelle] 2 each PO DAILY #60 cap.sprink 04/21/17 [Rx] Pregabalin [Lyrica] 100 mg PO BID 09/07/17 [History] Carvedilol [Coreg] 12.5 mg PO BIDWM #60 tablet 09/12/17 [Rx] Ciprofloxacin HCl [Cipro] 500 mg PO BID #6 tablet 09/12/17 [Rx] Ranolazine [Ranexa] 1,000 mg PO BID #60 tab.er.12h 09/12/17 [Rx] amLODIPine [Norvasc] 10 mg PO DAILY #30 tablet 09/12/17 [Rx] hydrALAZINE [HydrALAZINE] 50 mg PO Q8HR #90 tablet 09/12/17 [Rx] metroNIDAZOLE [Flagyl] 500 mg PO TID #9 tablet 09/12/17 [Rx] Allergies/Adverse Reactions: 3 Allergy/AdvReac Type Severity Reaction Status Date / Time No Known Allergies Allergy Verified 09/07/17 14:43 Certification: Further, I certify that my clinical findings support that this patient is homebound (i.e. absences from home require considerable and taxing effort and are for medical reasons or latter-day services or infrequently or short duration when for other reasons) because: Homebound Reason: Patient requires assistance of a person or device to safely leave home Attestation: My signature below is to certify that this patient is under my care and that I, or nurse practitioner, or a physician's custody assistant working with me, has a face-to -face encounter with this patient.
== END 2017-09-12 09:55 | disposition home health service (06) | DRG 280 ==
LOC: 2NNU 11:15 → EMEROO 11:15 → SUATTDRO 14:35 → 2NNU 16:51
PROVIDERS: ADMIT Internal Medicine; ATTEND Internal Medicine
PROC: ENDOCBX (2017-09-08 12:00)

== ENCOUNTER 2018-10-04 08:58 | Inpatient (IN) ==
--- NOTE | 2018-10-04 09:13 | Emergency Department Note ---
Disposition Clinical Impression: ESRD on dialysis, Slurred speech, Uremia, Weakness Diabetes Qualifiers: Diabetes mellitus type: type 2 Diabetes mellitus mcfp insulin use: with mcfp use Diabetes mellitus complication status: with kidney complications Diabetes mellitus complication detail: with chronic kidney disease Chronic kidney disease stage: unspecified stage Qualified Code(s): E11.22 - Type 2 diabetes mellitus with diabetic chronic kidney disease Acute renal failure superimposed on chronic kidney disease Qualifiers: Acute renal failure type: unspecified Chronic kidney disease stage: unspecified stage Qualified Code(s): N17.9 - Acute kidney failure, unspecified CHF (congestive heart failure) Qualifiers: Heart failure type: unspecified Heart failure chronicity: chronic Qualified Code(s): I50.9 - Heart failure, unspecified Disposition: Admitted As Inpatient Condition: Fair Referrals: Raoul Gaona DO [Primary Care Provider] - Forms: ED Satisfaction Letter Time of Disposition: 12:29 Neuro HPI - General Chief Complaint: ED Neuro Symptoms/Deficit Stated Complaint: neuro symptoms Time Seen by Provider: 10/04/18 09:01 Source: patient, family, EMS Mode of arrival: EMS Limitations: no limitations Nursing Notes Reviewed: Yes Vital Signs Reviewed: Yes - History of Present Illness HPI Narrative: 73 yo male presents from home the AMS for right-sided weakness and slurred speech. The patient does have a history of stroke and TIA, end-stage renal disease on dialysis, CHF and diabetes. Patient states he last felt well at approximately midnight last night when he noticed he was starting to control. When he woke up this morning and was unable to get out of bed due to right leg weakness. states that the last time she saw him normal was at 11:00 last night. She states the patient's speech does sound slurred to her. Blood sugar by EMS was slightly elevated at 285 and his vital signs were normal. He has not had a fever at home, chest pain, shortness of breath, abdominal pain. He is alert and oriented at this time. - Related Data Home Medications: Home Medications Medication Instructions Recorded Confirmed Furosemide [Lasix] 20 mg PO DAILY PRN 12/16/16 09/07/17 Insulin ASPART [Novolog Flexpen] 2 - 10 units SQ TID 12/16/16 09/07/17 Insulin Degludec [Tresiba 80 unit SQ HS 08/12/17 05/04/18 Flextouch U-100] Clopidogrel [Plavix] 75 mg PO DAILY 01/02/17 09/07/17 Finasteride [Proscar] 5 mg PO DAILY 01/02/17 09/07/17 Fluticasone Propionate Nasal 100 mcg NS DAILY PRN 01/02/17 09/07/17 [Flonase] Nitroglycerin [Nitrostat] 0.4 mg SL Q5M PRN 01/02/17 09/07/17 Rosuvastatin [Crestor] 40 mg PO HS 01/02/17 09/07/17 Sertraline [Zoloft] 100 mg PO DAILY 01/02/17 09/07/17 carBAMazepine [Tegretol] 200 mg PO Q12H 01/02/17 09/07/17 Omeprazole [PriLOSEC] 40 mg PO DAILY 01/21/17 09/07/17 Ramipril [Altace] 5 mg PO DAILY 01/21/17 09/07/17 Aspirin Enteric Coated [Aspirin EC] 81 mg PO DAILY 03/14/17 09/07/17 Glimepiride [Amaryl] 4 mg PO BID 04/16/17 09/07/17 Saxagliptin HCl [Onglyza] 5 mg PO DAILY 04/16/17 09/07/17 Pregabalin [Lyrica] 100 mg PO BID 09/07/17 09/07/17 Previous Rx's Medication Instructions Recorded Isosorbide MONOnitrate (24 HR) 60 mg PO DAILY #30 04/21/17 [Imdur] Lactobacillus [Culturelle] 2 each PO DAILY #60 cap.sprink 04/21/17 Carvedilol [Coreg] 12.5 mg PO BIDWM #60 tablet 09/12/17 Ciprofloxacin HCl [Cipro] 500 mg PO BID #6 tablet 09/12/17 Ranolazine [Ranexa] 1,000 mg PO BID #60 tab.er.12h 09/12/17 amLODIPine [Norvasc] 10 mg PO DAILY #30 tablet 09/12/17 hydrALAZINE [HydrALAZINE] 50 mg PO Q8HR #90 tablet 09/12/17 metroNIDAZOLE [Flagyl] 500 mg PO TID #9 tablet 09/12/17 Allergies/Adverse Reactions: Allergies Allergy/AdvReac Type Severity Reaction Status Date / Time No Known Allergies Allergy Verified 05/07/18 15:42 All systems ED: reviewed and negative except as stated. Review of Systems: As Per HPI Constitutional: Reports: weakness. Denies: fever, chills Eyes: Denies: vision change Cardiovascular: Denies: chest pain, palpitations, dyspnea on exertion Respiratory: Denies: cough, dyspnea, wheezes Gastrointestinal: Denies: abdominal pain, nausea, vomiting, diarrhea Genitourinary: Denies: dysuria, hematuria Musculoskeletal: Denies: back pain, neck pain Integumentary: Denies: rash Neurological: Reports: weakness. Denies: headache, paresthesias, confusion Endocrine: Denies: fatigue Past Medical History - Past Medical History Attestation: Yes The following information was validated with the patient. Source: patient Medical history: Reports: cancer, CVA, diabetes, glaucoma, hyperlipidemia, hypertension, renal disease, other Surgical history: Reports: angioplasty/stent, cataract, coronary bypass (CABG), orthopedic, other Psychiatric history: Reports: depression - Social History Smoking Status: Never smoker Smokeless Tobacco Status: No Alcohol use: Reports: none Drug use: Reports: none Physical Exam - General Limitations: no limitations General appearance: alert, in no apparent distress - Head Head exam: atraumatic, normocephalic - Eye Eye exam: Present: normal appearance, PERRL, EOMI - Chest Chest inspection: Present: normal inspection. Absent: tenderness - Respiratory Respiratory exam: Present: normal lung sounds bilaterally - Cardiovascular Cardiovascular exam: Present: regular rate, normal rhythm - Abdominal Exam Abdominal exam: Present: soft, Non-Tender. Absent: distention, guarding, rebound, rigidity - Extremities Exam Extremities exam: Present: other (Right side of body is objectively weaker than the other but the patient is able to hold both arms and both legs in the air without significant drift in any of the limbs. 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.) - Neurological Exam Neurological exam: Present: alert, oriented X3, motor sensory deficit (for more extensive neurologic exam refer to the NIH scale) - Psychiatric Psychiatric exam: Present: normal affect, normal mood - Skin Skin exam: Present: warm, dry, intact Course Vital Signs Temperature 98.6 F 10/04/18 09:00 Pulse Rate 82 10/04/18 09:00 Respiratory Rate 18 10/04/18 09:00 Blood Pressure 137/76 10/04/18 09:00 O2 Sat by Pulse Oximetry 94 10/04/18 09:00 Temperature 98.6 F 10/04/18 09:00 Pulse Rate 77 10/04/18 11:15 Respiratory Rate 16 10/04/18 11:15 Blood Pressure 153/68 10/04/18 11:15 O2 Sat by Pulse Oximetry 98 10/04/18 11:15 Oxygen Delivery Oxygen Delivery Room Air Neuro Symptoms/Deficit - MDM Narrative Medical decision making narrative: Patient presents from home with onset of stroke symptoms which began approximately 10 hours prior to arrival. Since the patient is out of the TPA window and presents with more generalized weakness than focal deficits a stroke alert was not called. Lab work was obtained immediately and the patient will be taken to CT scan. In addition to normal stroke labs we will add lactic acid, ammonia level, chest x-ray, urinalysis and Tegretol levels to determine if the patient is septic or has another reason for his generalized weakness and slurred speech. 1035 - chest x-ray without any acute cardiopulmonary process. EKG does not show any acute changes from previous. Lab work including urinalysis was unremarkable with the exception of the acute on chronic kidney disease with an elevation in his creatinine and BUN above his new baseline. Awaiting head CT results and then the patient will be admitted to the hospital for further stroke workup and dialysis. 1050 - head CT does not demonstrate any acute intracranial process but shows chronic micro-vascular disease. Patient was told of these results and states that he is feeling slightly better. He does have some numbness of his lips and feels like he has a dry mouth but his strength is increasing on his right side. He does still feel generally weak but his strength is now equal on both sides. His speech is still mildly slurred. The patient will be given an aspirin and admitted to the hospital for further stroke workup and dialysis. Patient is agreeable with this plan of care. 1225 - patient has been accepted by hospitalist Dr. Dsouza. - Medical Records Medical records reviewed: Yes I reviewed the patient's medical records. - Lab Data Lab results reviewed: Yes I reviewed the patient's lab results. Result diagrams: 10/04/18 09:07 10/04/18 09:07 Lab Results 10/04/18 10/04/18 10/04/18 Range/Units 09:07 09:07 09:07 WBC 6.4 (4.3-11.1) K/mcL RBC 3.14 L (4.19-5.50) M/mcL Hgb 10.2 L (12.9-16.9) g/dL Hct 31.6 L (37.5-50.1) % MCV 100.6 H (83.0-100.0) fL MCH 32.5 (28.0-33.3) pg MCHC 32.3 (31.6-35.5) g/dL RDW 13.2 (11.5-14.5) % Plt Count 230 (140-400) K/mcL MPV 10.4 (9.4-12.4) fL PT 11.0 (9.4-12.1) Seconds INR 1.0 APTT 30.6 (26.0-36.0) Seconds Sodium 141 (136-145) mEq/L Potassium 5.0 (3.5-5.1) mEq/L Chloride 100 (98-107) mEq/L Carbon Dioxide 27 (23-29) mEq/L BUN 76 H (8-23) mg/dL Creatinine 6.38 H (0.70-1.30) mg/dL Est GFR ( Amer) 11 L (> 60) Est GFR (Non-Af Amer) 9 L (> 60) BUN/Creatinine Ratio 12 (6-26) Glucose 287 H (70-105) mg/dL Calculated Osmolality 325 H (280-300) Lactic Acid (0.5-2.2) mmol/L Calcium 9.3 (8.6-10.3) mg/dL Total Bilirubin 0.3 (0.3-1.0) mg/dL Direct Bilirubin 0.1 (0.0-0.2) mg/dL Indirect Bilirubin 0.2 (0.0-1.2) mg/dL AST 11 L (13-39) Units/L ALT 9 (7-52) Units/L Alkaline Phosphatase 71 (34-104) Units/L Ammonia (16-53) mcmol/L Troponin I 0.03 (< 0.04) ng/mL Serum Total Protein 7.4 (6.4-8.9) g/dL Albumin 4.1 (3.5-5.7) g/dL Globulin 3.3 (2.4-3.5) g/dL Albumin/Globulin Ratio 1.2 (1.1-2.2) Urine Color (Yellow) Urine Clarity (Clear) Urine pH (5.0-8.0) pH Units Ur Specific [place] (1.010-1.025) Urine Protein (Neg-Trace) mg/dL Urine Glucose (UA) (Normal) mg/dL Urine Ketones (Negative) mg/dL Urine Blood (Negative) Urine Nitrite (Negative) Urine Bilirubin (Negative) Urine Urobilinogen (Normal) mg/dL Ur Leukocyte Esterase (Negative) Urine Microscopic RBC (0-3) per hpf Urine Microscopic WBC (0-3) per hpf Ur Squamous Epith Cells (None-Few) per lpf Urine Bacteria (None-Few) per hpf Hyaline Casts (None-Few) per lpf Carbamazepine 5 (4-12) mcg/mL 10/04/18 10/04/18 10/04/18 Range/Units 09:31 09:31 09:56 WBC (4.3-11.1) K/mcL RBC (4.19-5.50) M/mcL Hgb (12.9-16.9) g/dL Hct (37.5-50.1) % MCV (83.0-100.0) fL MCH (28.0-33.3) pg MCHC (31.6-35.5) g/dL RDW (11.5-14.5) % Plt Count (140-400) K/mcL MPV (9.4-12.4) fL PT (9.4-12.1) Seconds INR APTT (26.0-36.0) Seconds Sodium (136-145) mEq/L Potassium (3.5-5.1) mEq/L Chloride (98-107) mEq/L Carbon Dioxide (23-29) mEq/L BUN (8-23) mg/dL Creatinine (0.70-1.30) mg/dL Est GFR ( Amer) (> 60) Est GFR (Non-Af Amer) (> 60) BUN/Creatinine Ratio (6-26) Glucose (70-105) mg/dL Calculated Osmolality (280-300) Lactic Acid 1.3 (0.5-2.2) mmol/L Calcium (8.6-10.3) mg/dL Total Bilirubin (0.3-1.0) mg/dL Direct Bilirubin (0.0-0.2) mg/dL Indirect Bilirubin (0.0-1.2) mg/dL AST (13-39) Units/L ALT (7-52) Units/L Alkaline Phosphatase (34-104) Units/L Ammonia 44 (16-53) mcmol/L Troponin I (< 0.04) ng/mL Serum Total Protein (6.4-8.9) g/dL Albumin (3.5-5.7) g/dL Globulin (2.4-3.5) g/dL Albumin/Globulin Ratio (1.1-2.2) Urine Color Yellow (Yellow) Urine Clarity Clear (Clear) Urine pH 7.0 (5.0-8.0) pH Units Ur Specific [place] 1.018 (1.010-1.025) Urine Protein >=300 H (Neg-Trace) mg/dL Urine Glucose (UA) 500 H (Normal) mg/dL Urine Ketones Negative (Negative) mg/dL Urine Blood Trace H (Negative) Urine Nitrite Negative (Negative) Urine Bilirubin Negative (Negative) Urine Urobilinogen Normal (Normal) mg/dL Ur Leukocyte Esterase Negative (Negative) Urine Microscopic RBC 0-3 (0-3) per hpf Urine Microscopic WBC 3-5 H (0-3) per hpf Ur Squamous Epith Cells Many H (None-Few) per lpf Urine Bacteria None Seen (None-Few) per hpf Hyaline Casts None Seen (None-Few) per lpf Carbamazepine (4-12) mcg/mL - Radiology Data Radiology results reviewed: Yes I reviewed the patient's radiology results. - EKG Data EKG attestation: Yes I reviewed and interpreted this EKG. EKG results narrative: EKG obtained at 9:08 10/04/2018 Heart rate 82 bpm, MA interval 234, QRS duration 106, QT 389, QTC 455 Sinus rhythm with a prolonged MA interval. No ST segment elevations or depressions. T-wave flattening in the lateral leads which is present on old EKG. No significant changes when compared to previous EKG dated 06/19/2018. NIH Stroke Scale - Level of Consciousness LOC: Alert - LOC Questions LOC Questions: Answers both correctly - LOC Commands LOC Commands: Performs both correctly - Best Gaze Best Gaze: Normal - Visual Visual: No visual loss - Facial Palsy Facial Palsy: Normal - Motor Arms Motor Arm-Left: No drift for 10 seconds Motor Arm-Right: Drift, does NOT hit bed - Motor Legs Motor Leg-Left: No drift for 5 seconds Motor Leg-Right: No drift for 5 seconds - Limb Ataxia Limb Ataxia: Absent of affected limb too weak to perform exam - Sensory Sensory: Normal - Best Language Best Language: No aphasia - Dysarthria Dysarthria: Mild, slurs some words - Extinction and Inattention Extinction and Inattention: Normal - NIHSS Total Score NIHSS Total Score: 2 TPA Checklist - LKW: 3-4.5 hrs Add. Warnings/Precautions Patient/family understanding: The patient/family members have been counseled and understood the risk, benefit, and alternatives of treatment.
--- NOTE | 2018-10-04 09:13 | Emergency Department Note ---
Disposition Clinical Impression: ESRD on dialysis, Slurred speech, Uremia, Weakness Diabetes Qualifiers: Diabetes mellitus type: type 2 Diabetes mellitus terminal carman insulin use: with terminal carman use Diabetes mellitus complication status: with kidney complications Diabetes mellitus complication detail: with chronic kidney disease Chronic kidney disease stage: unspecified stage Qualified Code(s): E11.22 - Type 2 diabetes mellitus with diabetic chronic kidney disease Acute renal failure superimposed on chronic kidney disease Qualifiers: Acute renal failure type: unspecified Chronic kidney disease stage: unspecified stage Qualified Code(s): N17.9 - Acute kidney failure, unspecified CHF (congestive heart failure) Qualifiers: Heart failure type: unspecified Heart failure chronicity: chronic Qualified Code(s): I50.9 - Heart failure, unspecified Disposition: Admitted As Inpatient Condition: Fair Time of Disposition: 12:55 General Adult HPI - General Chief complaint: ED Neuro Symptoms/Deficit Stated complaint: neuro symptoms Time Seen by Provider: 10/04/18 09:01 - History of Present Illness Pain Scale: 0 - Related Data Home Medications Medication Instructions Recorded Confirmed Furosemide [Lasix] 20 mg PO DAILY PRN 12/16/16 09/07/17 Insulin ASPART [Novolog Flexpen] 2 - 10 units SQ TID 12/16/16 09/07/17 Insulin Degludec [Tresiba 80 unit SQ HS 12/16/16 09/07/17 Flextouch U-100] Clopidogrel [Plavix] 75 mg PO DAILY 01/02/17 09/07/17 Finasteride [Proscar] 5 mg PO DAILY 01/02/17 09/07/17 Fluticasone Propionate Nasal 100 mcg NS DAILY PRN 01/02/17 09/07/17 [Flonase] Nitroglycerin [Nitrostat] 0.4 mg SL Q5M PRN 01/02/17 09/07/17 Rosuvastatin [Crestor] 40 mg PO HS 01/02/17 09/07/17 Sertraline [Zoloft] 100 mg PO DAILY 01/02/17 09/07/17 carBAMazepine [Tegretol] 200 mg PO Q12H 01/02/17 09/07/17 Omeprazole [PriLOSEC] 40 mg PO DAILY 01/21/17 09/07/17 Ramipril [Altace] 5 mg PO DAILY 01/21/17 09/07/17 Aspirin Enteric Coated [Aspirin EC] 81 mg PO DAILY 03/14/17 09/07/17 Glimepiride [Amaryl] 4 mg PO BID 04/16/17 09/07/17 Saxagliptin HCl [Onglyza] 5 mg PO DAILY 04/16/17 09/07/17 Pregabalin [Lyrica] 100 mg PO BID 09/07/17 09/07/17 Previous Rx's Medication Instructions Recorded Isosorbide MONOnitrate (24 HR) 60 mg PO DAILY #30 04/21/17 [Imdur] Lactobacillus [Culturelle] 2 each PO DAILY #60 cap.sprink 04/21/17 Carvedilol [Coreg] 12.5 mg PO BIDWM #60 tablet 09/12/17 Ciprofloxacin HCl [Cipro] 500 mg PO BID #6 tablet 09/12/17 Ranolazine [Ranexa] 1,000 mg PO BID #60 tab.er.12h 09/12/17 amLODIPine [Norvasc] 10 mg PO DAILY #30 tablet 09/12/17 hydrALAZINE [HydrALAZINE] 50 mg PO Q8HR #90 tablet 09/12/17 metroNIDAZOLE [Flagyl] 500 mg PO TID #9 tablet 09/12/17 Allergies Allergy/AdvReac Type Severity Reaction Status Date / Time No Known Allergies Allergy Verified 05/07/18 15:42 Past Medical History - Past Medical History Medical history: Reports: cancer, CVA, diabetes, glaucoma, hyperlipidemia, hypertension, renal disease, other Surgical history: Reports: angioplasty/stent, cataract, coronary bypass (CABG), orthopedic, other Psychiatric history: Reports: depression - Social History Smoking Status: Never smoker Smokeless Tobacco Status: No Alcohol use: Reports: none Drug use: Reports: none Physical Exam - General General appearance: alert, in no apparent distress Course Vital Signs Temperature 98.6 F 10/04/18 09:00 Pulse Rate 82 10/04/18 09:00 Respiratory Rate 18 10/04/18 09:00 Blood Pressure 137/76 10/04/18 09:00 O2 Sat by Pulse Oximetry 94 10/04/18 09:00 Temperature 98.6 F 10/04/18 09:00 Pulse Rate 76 10/04/18 12:47 Respiratory Rate 18 10/04/18 12:47 Blood Pressure 122/49 10/04/18 12:47 O2 Sat by Pulse Oximetry 99 10/04/18 12:47 Oxygen Delivery Oxygen Delivery Room Air Medical Decision Making - Lab Data Result diagrams: 10/04/18 09:07 10/04/18 09:07 Lab Results 10/04/18 10/04/18 10/04/18 Range/Units 09:07 09:07 09:07 WBC 6.4 (4.3-11.1) K/mcL RBC 3.14 L (4.19-5.50) M/mcL Hgb 10.2 L (12.9-16.9) g/dL Hct 31.6 L (37.5-50.1) % MCV 100.6 H (83.0-100.0) fL MCH 32.5 (28.0-33.3) pg MCHC 32.3 (31.6-35.5) g/dL RDW 13.2 (11.5-14.5) % Plt Count 230 (140-400) K/mcL MPV 10.4 (9.4-12.4) fL PT 11.0 (9.4-12.1) Seconds INR 1.0 APTT 30.6 (26.0-36.0) Seconds Sodium 141 (136-145) mEq/L Potassium 5.0 (3.5-5.1) mEq/L Chloride 100 (98-107) mEq/L Carbon Dioxide 27 (23-29) mEq/L BUN 76 H (8-23) mg/dL Creatinine 6.38 H (0.70-1.30) mg/dL Est GFR ( Amer) 11 L (> 60) Est GFR (Non-Af Amer) 9 L (> 60) BUN/Creatinine Ratio 12 (6-26) Glucose 287 H (70-105) mg/dL Calculated Osmolality 325 H (280-300) Lactic Acid (0.5-2.2) mmol/L Calcium 9.3 (8.6-10.3) mg/dL Total Bilirubin 0.3 (0.3-1.0) mg/dL Direct Bilirubin 0.1 (0.0-0.2) mg/dL Indirect Bilirubin 0.2 (0.0-1.2) mg/dL AST 11 L (13-39) Units/L ALT 9 (7-52) Units/L Alkaline Phosphatase 71 (34-104) Units/L Ammonia (16-53) mcmol/L Troponin I 0.03 (< 0.04) ng/mL Serum Total Protein 7.4 (6.4-8.9) g/dL Albumin 4.1 (3.5-5.7) g/dL Globulin 3.3 (2.4-3.5) g/dL Albumin/Globulin Ratio 1.2 (1.1-2.2) Urine Color (Yellow) Urine Clarity (Clear) Urine pH (5.0-8.0) pH Units Ur Specific [place] (1.010-1.025) Urine Protein (Neg-Trace) mg/dL Urine Glucose (UA) (Normal) mg/dL Urine Ketones (Negative) mg/dL Urine Blood (Negative) Urine Nitrite (Negative) Urine Bilirubin (Negative) Urine Urobilinogen (Normal) mg/dL Ur Leukocyte Esterase (Negative) Urine Microscopic RBC (0-3) per hpf Urine Microscopic WBC (0-3) per hpf Ur Squamous Epith Cells (None-Few) per lpf Urine Bacteria (None-Few) per hpf Hyaline Casts (None-Few) per lpf Carbamazepine 5 (4-12) mcg/mL 10/04/18 10/04/18 10/04/18 Range/Units 09:31 09:31 09:56 WBC (4.3-11.1) K/mcL RBC (4.19-5.50) M/mcL Hgb (12.9-16.9) g/dL Hct (37.5-50.1) % MCV (83.0-100.0) fL MCH (28.0-33.3) pg MCHC (31.6-35.5) g/dL RDW (11.5-14.5) % Plt Count (140-400) K/mcL MPV (9.4-12.4) fL PT (9.4-12.1) Seconds INR APTT (26.0-36.0) Seconds Sodium (136-145) mEq/L Potassium (3.5-5.1) mEq/L Chloride (98-107) mEq/L Carbon Dioxide (23-29) mEq/L BUN (8-23) mg/dL Creatinine (0.70-1.30) mg/dL Est GFR ( Amer) (> 60) Est GFR (Non-Af Amer) (> 60) BUN/Creatinine Ratio (6-26) Glucose (70-105) mg/dL Calculated Osmolality (280-300) Lactic Acid 1.3 (0.5-2.2) mmol/L Calcium (8.6-10.3) mg/dL Total Bilirubin (0.3-1.0) mg/dL Direct Bilirubin (0.0-0.2) mg/dL Indirect Bilirubin (0.0-1.2) mg/dL AST (13-39) Units/L ALT (7-52) Units/L Alkaline Phosphatase (34-104) Units/L Ammonia 44 (16-53) mcmol/L Troponin I (< 0.04) ng/mL Serum Total Protein (6.4-8.9) g/dL Albumin (3.5-5.7) g/dL Globulin (2.4-3.5) g/dL Albumin/Globulin Ratio (1.1-2.2) Urine Color Yellow (Yellow) Urine Clarity Clear (Clear) Urine pH 7.0 (5.0-8.0) pH Units Ur Specific [place] 1.018 (1.010-1.025) Urine Protein >=300 H (Neg-Trace) mg/dL Urine Glucose (UA) 500 H (Normal) mg/dL Urine Ketones Negative (Negative) mg/dL Urine Blood Trace H (Negative) Urine Nitrite Negative (Negative) Urine Bilirubin Negative (Negative) Urine Urobilinogen Normal (Normal) mg/dL Ur Leukocyte Esterase Negative (Negative) Urine Microscopic RBC 0-3 (0-3) per hpf Urine Microscopic WBC 3-5 H (0-3) per hpf Ur Squamous Epith Cells Many H (None-Few) per lpf Urine Bacteria None Seen (None-Few) per hpf Hyaline Casts None Seen (None-Few) per lpf Carbamazepine (4-12) mcg/mL Attestation Statement - Attestation Attestation: I reviewed the residents documentation and agree with the residents assessment and plan of care. I have personally had face to face time with the patient. (Brief History, Brief Exam, and MDM) I personally supervised and was present for the donovan/critical portions of the following procedures completed by the resident : (add procedures performed here). [id number] time provided I attest to supervising the resident physician interpretation of the ECG. Patient arrives from home with weakness that began with dysarthria and "drooling" approximately 10 hours ago. On exam the patient does have mild slu rred speech both subjectively per the and objectively. The patient has mild right upper and right lower weakness without drift of either limb
[2018-10-04 09:15] LABS: Hematocrit 31.6 % (37.5-50.1); Hemoglobin 10.2 g/dL (12.9-16.9); Mean Corpuscular HGB Conc 32.3 g/dL (31.6-35.5); Mean Corpuscular Hemoglobin 32.5 pg (28.0-33.3); Mean Corpuscular Volume 100.6 fL (83.0-100.0); Mean Platelet Volume 10.4 fL (9.4-12.4); Platelet Count 230 K/mcL (140-400); Red Blood Count 3.14 M/mcL (4.19-5.50); Red Cell Distribution Width 13.2 % (11.5-14.5); White Blood Count 6.4 K/mcL (4.3-11.1)
[2018-10-04 09:25] LABS: Activated Partial Thrombo Time 30.6 Seconds (26.0-36.0)
[2018-10-04 09:40] LABS: Albumin 4.1 g/dL (3.5-5.7); Albumin/Globulin Ratio 1.2 (1.1-2.2); Bilirubin,Direct 0.1 mg/dL (0.0-0.2); Bilirubin,Indirect 0.2 mg/dL (0.0-1.2); Bilirubin,Total 0.3 mg/dL (0.3-1.0); Calcium 9.3 mg/dL (8.6-10.3); Globulin 3.3 g/dL (2.4-3.5); Total Protein 7.4 g/dL (6.4-8.9); Troponin I 0.03 ng/mL (< 0.04)
[2018-10-04 10:14] LABS: Bilirubin,Urine Negative (Negative); Blood,Urine Trace (Negative); Clarity,Urine Clear (Clear); Color,Urine Yellow (Yellow); Glucose,Urine (UA) 500 mg/dL (Normal); Ketones,Urine Negative (Negative); Leukocyte Esterase,Urine Negative (Negative); Nitrite,Urine Negative (Negative); Protein,Urine >=300 mg/dL (Neg-Trace); Specific Gravity,Urine 1.018 (1.010-1.025); Urobilinogen,Urine Normal (Normal)
[2018-10-04 10:16] LABS: Bacteria,Urine None Seen per hpf (None-Few); Hyaline Casts,Urine None Seen per lpf (None-Few); RBC,Urine 0-3 per hpf (0-3); Squamous Epithelial Cell,Urine Many per lpf (None-Few)
[2018-10-04] MEDS: Aspirin Enteric Coated 81 MG Tablet PO SCH ×2 (11:15→11:19)
--- NOTE | 2018-10-04 13:13 | Electrocardiograph Report ---
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
[2018-10-04] MEDS ORDERED: Naloxone 0.4 MG/ML INJ IVP PRN (13:59)
--- NOTE | 2018-10-04 14:45 | Internal Med History&Physical ---
Date of Encounter: 10/04/18 Time of Encounter: 14:05 Internal Medicine - H&P: HPI Chief complaint: right sided weakness/slurred speech Admitted From: Home Plans for Post Hospital Care: Home History of present illness: Mr. Anguiano is a 73 year old male with PMH of ESRD on HD, DM, HTN, HLD, CAD s/p CABG with stent placement, CHF, CVA who presents to the ER for evaluation of right sided weakness and slurred speech. Patient states he was in his usual state of health until last night, when he started having some speech difficulty and felt that he had slurring of his speech. He went to bed and woke up this morning with right upper and lower extremity weakness and slurred speech witnessed by his which is what prompted his visit to the ER. At this time, he is resting in bed, reports significant improvement in his speech. He states he is able to move his right upper and lower extremity better since hospitalization. Noted to have mild right sided facial droop. As per daughter, present at bedside, patient's symptoms have improved since this morning. He denies any vision changes, headache, lightheadedness, chest pain, sob, abd pain,n/v, fever or chills. He states he was supposed to go for dialysis today but has been in the ER since morning. Reports of using a walker to ambulate at baseline. Ten point ROS is negative except as listed above. Past Med Surg Social Fam HX - Past Medical History Medical history: cancer, CVA, diabetes, glaucoma, hyperlipidemia, hypertension, renal disease, other Additional medical history: skin cancer Psychiatric history: depression - Past Surgical History Surgical History: angioplasty/stent, cataract, coronary bypass (CABG), orthopedic, other Additional surgical history: left foot surgery, cardiac stents x9, skin cancer removed, back surgery, - Social History Smoking Status: Never smoker Smokeless Tobacco Status: No Alcohol use: none Drug use: none - Family History Father Living Status: Hx Family Cardiac Disorders: Yes Mother Adopted: No Living Status: Hx Family Cardiac Disorders: Yes Hx Family Cancer: Yes (liver cancer) Internal Medicine - H&P: Meds Furosemide [Lasix] 20 mg PO DAILY PRN 12/16/16 [History] Insulin ASPART [Novolog Flexpen] 2 - 10 units SQ TID 12/16/16 [History] Insulin Degludec [Tresiba Flextouch U-100] 80 unit SQ HS 12/16/16 [History] Clopidogrel [Plavix] 75 mg PO DAILY 01/02/17 [History] Finasteride [Proscar] 5 mg PO DAILY 01/02/17 [History] Fluticasone Propionate Nasal [Flonase] 100 mcg NS DAILY PRN 01/02/17 [History] Nitroglycerin [Nitrostat] 0.4 mg SL Q5M PRN 01/02/17 [History] Rosuvastatin [Crestor] 40 mg PO HS 01/02/17 [History] Sertraline [Zoloft] 100 mg PO DAILY 01/02/17 [History] carBAMazepine [Tegretol] 200 mg PO Q12H 01/02/17 [History] Omeprazole [PriLOSEC] 40 mg PO DAILY 01/21/17 [History] Ramipril [Altace] 5 mg PO DAILY 01/21/17 [History] Aspirin Enteric Coated [Aspirin EC] 81 mg PO DAILY 03/14/17 [History] Glimepiride [Amaryl] 4 mg PO BID 04/16/17 [History] Saxagliptin HCl [Onglyza] 5 mg PO DAILY 04/16/17 [History] Isosorbide MONOnitrate (24 HR) [Imdur] 60 mg PO DAILY #30 04/21/17 [Rx] Lactobacillus [Culturelle] 2 each PO DAILY #60 cap.sprink 04/21/17 [Rx] Pregabalin [Lyrica] 100 mg PO BID 09/07/17 [History] Carvedilol [Coreg] 12.5 mg PO BIDWM #60 tablet 09/12/17 [Rx] Ranolazine [Ranexa] 1,000 mg PO BID #60 tab.er.12h 09/12/17 [Rx] amLODIPine [Norvasc] 10 mg PO DAILY #30 tablet 09/12/17 [Rx] hydrALAZINE [HydrALAZINE] 50 mg PO Q8HR #90 tablet 09/12/17 [Rx] Allergy/AdvReac Type Severity Reaction Status Date / Time No Known Allergies Allergy Verified 05/07/18 15:42 All Systems PM: A 10-system review of systems was performed and is negative for pertinent findings except as documented above in the HPI. Review of systems: Ten point ROS is negative except as listed in HPI - Constitutional Vitals: Temp Pulse Resp BP Pulse Ox 98.6 F 76 18 122/49 99 10/04/18 09:00 10/04/18 12:47 10/04/18 12:47 10/04/18 12:47 10/04/18 12:47 Exam: General: No acute distress, AAO x 3, obese HEENT: EOMI, PERRLA, NC/AT, no scleral icterus Respiratory: Clear to auscultate bilaterally, no wheezing, no rales Cardiovascular: Regular, Rate, Rhythm, + murmur, right chest wall HD catheter in place-dressing intact GI: Soft, Non tender, non distended, normal bowel sounds Ext: No edema, no tenderness, positive pulses Neuro: AAO x 3, right upper and lower extremity weakness, no pronator drift noted, facial droop on right Rest of the clinical exam is noncontributory Internal Med - H&P Results - Labs CBC & Chem 7: 10/04/18 09:07 10/04/18 09:07 Labs: Short CBC 10/04/18 Range/Units 09:07 WBC 6.4 (4.3-11.1) K/mcL Hgb 10.2 L (12.9-16.9) g/dL Hct 31.6 L (37.5-50.1) % Plt Count 230 (140-400) K/mcL BMP 10/04/18 09:07 Sodium 141 Potassium 5.0 Chloride 100 Carbon Dioxide 27 BUN 76 H Creatinine 6.38 H Glucose 287 H Calcium 9.3 Cardiac Enzymes 10/04/18 Range/Units 09:07 Troponin I 0.03 (< 0.04) ng/mL Liver Function 10/04/18 Range/Units 09:07 Total Bilirubin 0.3 (0.3-1.0) mg/dL Direct Bilirubin 0.1 (0.0-0.2) mg/dL AST 11 L (13-39) Units/L ALT 9 (7-52) Units/L Alkaline Phosphatase 71 (34-104) Units/L Albumin 4.1 (3.5-5.7) g/dL Urine 10/04/18 Range/Units 09:56 Urine Color Yellow (Yellow) Urine Clarity Clear (Clear) Urine pH 7.0 (5.0-8.0) pH Units Ur Specific [employer] 1.018 (1.010-1.025) Urine Protein >=300 H (Neg-Trace) mg/dL Urine Glucose (UA) 500 H (Normal) mg/dL - Impressions ITS Impressions Head CT 10/04/18 09:07 IMPRESSION: 1. No acute intracranial abnormality. 2. Chronic microvascular white matter ischemic disease. D/ / 10/04/2018 10:38:15 Aditya Saenz MD / yennifer Interpreting Provider: Aditya Saenz MD Chest X-Ray 10/04/18 09:09 IMPRESSION: No acute cardiopulmonary process. D/ / Jeremi Kim MD / Jeremi Kim MD Interpreting Provider: Jeremi Kim MD - Summary of Assessment and Plan Summary of Assessment and Plan: Mr. Anguiano is a 73 year old male with PMH of ESRD on HD, DM, HTN, HLD, CAD s/p CABG with stent placement, CHF, CVA who presents to the ER for evaluation of right sided weakness and slurred speech. Assessment/Plan: 1. Right sided weakness/slurred speech, will admit for further evaluation to rule out CVA CT head negative pt not a candidate for tPA given last known time was greater than 10hours at the time of arrival to the ER Aspirin, Lipitor pt did not pass bedside dysphagia screening, speech therapy evaluation has been requested Neurology evaluation has been requested f/u 2D echo, carotid doppler PT/OT evaluation continue tele monitoring NIHSS monitoring NPO until speech therapist's evaluation has been completed 2. ESRD on HD [facility] consulted pt on dialysis schedule on [facility] and did not get HD today 3. DM will restart basal insulin after verification of home medications sliding scale insulin algorithm as needed monitor FS and BG accuchecks q6h while NPO, will switch to ACHS once diet is resumed 4. HTN BP within acceptable range will restart home medications after verification 5. CAD no signs of angina present at this time will resume home meds after verification 6. DVT ppx: Heparin SQ LOS < 2 midnights code status: Full code Care plan discussed with patient/RN/family - Time Spent With Patient Total time spent is greater than 50% in coordination of care (as documented) at patient's floor/unit and/or counseling patient: 25 - 35 minutes
--- NOTE | 2018-10-04 15:13 | Neurology - Consult Note ---
Date of Encounter: 10/04/18 Time of Encounter: 15:07 Assessment and Plan (1) Acute CVA (cerebrovascular accident) Current Visit: Yes Status: Acute Neurology consulted for evaluation of acute CVA Etiology unclear at this time; pending workup p/w left facial droop, dysphagia, dysarthria, right tongue deviation, RU week, RLE Symptoms are persistent and confirmed on the neurological examination Risk factors include obesity, DM, HTN, HLD, severe CAD, prior CVAs I suspect at this time that the patient has most likely had a CVA Unfortunately, given symptom onset at 11 PM-12 AM yesterday evening he is not a candidate for TPA -CTA completed in the ED negative for acute infarct or acute intracranial abnormality PLAN: -Allow permissive HTN; goal SBP less than 170 -MRI head/brain without contrast -BL Carotid doppler -TTE now -Start ASA 81 mg daily and c/w Plavix daily -Continue Statin -Neuro assessments per stroke protocol -NIHSS now -Dysphagia screening now; NPO now. -Depending on results of dysphagia screening patient may need formal speech ramana luation especially with reports of dysphagia -Neurology will continue to follow in the am History of Present Illness Chief complaint: Suspect CVA HPI: Mr. Anguiano is a 73 year old male with a PMH of cancer, CVA, DM, glaucoma, HLD, HTN, ESRD, CAD with 9 stents. Presents to [facility] for evaluation of right-sided weakness, dysphagia, and dysarthria. He denies any visual disturbances, dizziness/lightheadedness, headaches, paresthesias, recent ill contacts, upper respiratory symptoms, urinary symptoms, chest pain, dyspnea, palpitations. He states that his last known well was between 11 PM to 12 AM yesterday. He awoke this morning with right leg weakness which he noticed when attempting to get up to use the restroom. He reports "I was not able to move my right leg or walk ". He notes that he called for his and when she came in she noticed that he was having left facial droop, slurred speech. These symptoms prompted eval uation in the ED. Vital signs were reviewed and the patient is hemodynamically stable. CT imaging of the head completed today in the ED shows no acute intracranial abnormality, finding chronic microvascular white matter ischemic disease. At the time of my assessment he continues to display right sided weakness but he notes that it has improved since admission. Further the left facial droop persists. D/t his risk factors and presentation neurology with c/w workup and evaluation of CVA. Past Med Surg Social Fam HX - Past Medical History Medical history: cancer, CVA, diabetes, glaucoma, hyperlipidemia, hypertension, renal disease, other Additional medical history: skin cancer Psychiatric history: depression - Past Surgical History Surgical History: angioplasty/stent, cataract, coronary bypass (CABG), orthopedic, other Additional surgical history: left foot surgery, cardiac stents x9, skin cancer removed, back surgery, - Social History Smoking Status: Never smoker Smokeless Tobacco Status: No Alcohol use: none Drug use: none - Family History Father Living Status: Hx Family Cardiac Disorders: Yes Mother Adopted: No Living Status: Hx Family Cardiac Disorders: Yes Hx Family Cancer: Yes (liver cancer) Medications and Allergies Furosemide [Lasix] 20 mg PO DAILY PRN 12/16/16 [History] Insulin ASPART [Novolog Flexpen] 2 - 10 units SQ TID 12/16/16 [History] Insulin Degludec [Tresiba Flextouch U-100] 80 unit SQ HS 12/16/16 [History] Clopidogrel [Plavix] 75 mg PO DAILY 01/02/17 [History] Finasteride [Proscar] 5 mg PO DAILY 01/02/17 [History] Fluticasone Propionate Nasal [Flonase] 100 mcg NS DAILY PRN 01/02/17 [History] Nitroglycerin [Nitrostat] 0.4 mg SL Q5M PRN 01/02/17 [History] Rosuvastatin [Crestor] 40 mg PO HS 01/02/17 [History] Sertraline [Zoloft] 100 mg PO DAILY 01/02/17 [History] carBAMazepine [Tegretol] 200 mg PO Q12H 01/02/17 [History] Omeprazole [PriLOSEC] 40 mg PO DAILY 01/21/17 [History] Ramipril [Altace] 5 mg PO DAILY 01/21/17 [History] Aspirin Enteric Coated [Aspirin EC] 81 mg PO DAILY 03/14/17 [History] Glimepiride [Amaryl] 4 mg PO BID 04/16/17 [History] Saxagliptin HCl [Onglyza] 5 mg PO DAILY 04/16/17 [History] Isosorbide MONOnitrate (24 HR) [Imdur] 60 mg PO DAILY #30 04/21/17 [Rx] Lactobacillus [Culturelle] 2 each PO DAILY #60 cap.sprink 04/21/17 [Rx] Pregabalin [Lyrica] 100 mg PO BID 09/07/17 [History] Carvedilol [Coreg] 12.5 mg PO BIDWM #60 tablet 09/12/17 [Rx] Ranolazine [Ranexa] 1,000 mg PO BID #60 tab.er.12h 09/12/17 [Rx] amLODIPine [Norvasc] 10 mg PO DAILY #30 tablet 09/12/17 [Rx] hydrALAZINE [HydrALAZINE] 50 mg PO Q8HR #90 tablet 09/12/17 [Rx] Allergy/AdvReac Type Severity Reaction Status Date / Time No Known Allergies Allergy Verified 05/07/18 15:42 All Systems: The remainder of the systems were reviewed and are negative Review of Systems: REVIEW OF SYSTEMS GENERAL: Negative for any nausea, vomiting, fevers, chills NEUROLOGIC: Negative for any blurry vision, blind spots, double vision, hemiparesis, hemisensory deficits, vertigo, ataxia, seizures, tingling, numbness Positive- left facial droop, dysphagia, dysarthria, right arm and leg weakness, difficulty with ambulating d/t leg weakness CARDIAC: Negative for any chest pain, dyspnea, peripheral edema, or palpitations MUSCULOSKELETAL: RUE, RLE weakness, decreased activity tolerance reporting "I cannot walk very well d/t the weakness". Physical Examination - Vital Signs Vital Signs: Initial Vital Signs Temp Pulse Resp BP Pulse Ox 98.6 F 82 18 137/76 94 10/04/18 09:00 10/04/18 09:00 10/04/18 09:00 10/04/18 09:00 10/04/18 09:00 - Exam Exam: Examination: General Examination: *CONSTITUTIONAL: Alert and oriented x3, no acute distress *GENERAL APPEARANCE OF PATIENT Generally ill appearing elderly male *EYES: pupils equal, round, reactive to light and accommodation, conjunctiva clear without masses or ulcerations, fundi normal. *CARDIOVASCULAR no peripheral edema, distal temperature normal, dorsalis pedis pulses normal. see vitals Musculoskeletal: *GAIT AND STATION deferred d/t leg weakness and risk for falls *ASSESSMENT OF MUSCLE STRENGTH IN THE UPPER AND LOWER EXTREMITIES left deltoid, bicep, tricep, control clerk repairs strength, hip flexors ,anterior tibialis, dorsoflexion of the foot 5/5. Right deltoid, bicep, tricep, control clerk repairs strength, hip flexor, anterior tibialis, dorsiflexion of the right foot, plantar flexion of the right foot 4/5 (strength is asymmetrical however, with strength on the (L>R) *MUSCLE TONE IN THE UPPER AND LOWER EXTREMITIES normal. No abnormal movements, fasciculations or atrophy identified. Neurological: *ORIENTATION to person, situation, time and place *RECURRENT AND REMOTE MEMORY intact *ATTENTION AND CONCENTRATION are normal *LANGUAGE FUNCTION no significant aphasia or dysarthia was noted. *FUND OF KNOWLEDGE aware of current events, past history, vocabulary *MENTAL attention span and concentration normal. *CN II optic fundi were normal, no papilledema noted. *CN III,IV, PERRLA extraocular eye movements were full, no nystagmus and no ptosis noted. *CN V shows normal sensation and jaw opens symmetrically. *CN VII shows normal facial movement symmetrically, upper and lower bilaterally. But has some mild left mouth droop *CN VIII shows no significant hearing loss on exam *CN IX,,X palate elevated symmetrically *CN XI normal strength in the sternocleidomastoid muscles, symmetrical shoulder shrugging. *CN XII right tongue deviation *SENSORY EXAMINATION light touch intact *REFLEXES: deep tendon reflexes were normal and symmetrical , grade 1/4 diffusely, no pathological reflexes were noted. *CEREBELLAR TESTING mild dysmetria noted with finger to nose exam on the Lt *PAIN LEVEL 0/10 Results - Laboratory Findings CBC and BMP: 10/04/18 09:07 10/04/18 09:07 Abnormal lab findings: Abnormal lab results RBC 3.14 M/mcL (4.19-5.50) L 10/04/18 09:07 Hgb 10.2 g/dL (12.9-16.9) L 10/04/18 09:07 Hct 31.6 % (37.5-50.1) L 10/04/18 09:07 MCV 100.6 fL (83.0-100.0) H 10/04/18 09:07 BUN 76 mg/dL (8-23) H 10/04/18 09:07 6.38 mg/dL (0.70-1.30) H 10/04/18 09:07 Est GFR ( Amer) 11 (> 60) L 10/04/18 09:07 Est GFR (Non-Af Amer) 9 (> 60) L 10/04/18 09:07 Glucose 287 mg/dL (70-105) H 10/04/18 09:07 325 (280-300) H 10/04/18 09:07 AST 11 Units/L (13-39) L 10/04/18 09:07 >=300 mg/dL (Neg-Trace) H 10/04/18 09:56 500 mg/dL (Normal) H 10/04/18 09:56 Trace (Negative) H 10/04/18 09:56 3-5 per hpf (0-3) H 10/04/18 09:56 Ur Squamous Epith Cells Many per lpf (None-Few) H 10/04/18 09:56 - Diagnostic Findings Additional findings: CT/CT head/brain wo con IMPRESSION: 1. No acute intracranial abnormality. 2. Chronic microvascular white matter ischemic disease. Consult Discharge Plan - Plan Referrals: Raoul Gaona DO [Primary Care Provider] -
[2018-10-04] MEDS ORDERED: D5% in Water 1,000 ML IVC PRN ×2 (15:35→18:39)
[2018-10-04] MEDS ORDERED: Dextrose Gel 15 GM/37.5 ML TUBE PO PRN ×2 (15:35)
[2018-10-04] MEDS ORDERED: 0.9 % Sodium Chloride 250 ML IVC PRN (16:31)
[2018-10-04] MEDS ORDERED: 0.9 % Sodium Chloride 1,000 ML PRIME SCH (16:45)
[2018-10-04] MEDS: Insulin LISPRO 300 UNITS/3 ML VIAL SQ SCH ×2 (17:44→18:40)
[2018-10-04 18:09] LABS: Hepatitis B Surface Antibody < 3.10 mIU/mL
[2018-10-04 18:20] LABS: Hepatitis B Surface Antigen Nonreactive (Nonreactive)
[2018-10-04] MEDS: *HR* Heparin 5,000 UNIT/ML VIAL SQ SCH (18:37)
--- NOTE | 2018-10-04 19:25 | Nephrology Consult Note ---
Date of Encounter: 10/04/18 Time of Encounter: 17:00 Assessment and Plan (1) ESRD on dialysis Current Visit: Yes Status: Chronic The patient is ESRD on hemodialysis every Sunday/Sunday/Sunday. He is due for dialysis today (Sunday). I reviewed the patient's available labs, vital signs, progress notes, imaging and medications, and with complex medical decision making plus evaluation and management, I used this information to order his dialysis today. I will request his outpatient dialysis unit medical records as his Nephrology group no longer round on their patients when admitted at [facility]. Given the recent stroke, I have ordered only a gentle dialysis treatment today with lower blood flows and lower dialysate flows. Ideally this will minimize any risk of worsening the stroke. Thank you for consulting the [facility], and I will follow with you. Of note the patient said he wants to change dialysis providers, and so he may ask the social worker assistant on how that is performed. (2) Intra-dialytic hypotension Current Visit: Yes Status: Chronic He should have his Midodrine continued while hospitalized to help prevent intradialytic hypotension (3) Acute CVA (cerebrovascular accident) Current Visit: Yes Status: Acute See above regarding his dialysis orders today. As per primary/neurology (4) Weakness Current Visit: Yes Status: Acute As per primary/neurology (5) Anemia in chronic kidney disease Current Visit: Yes Status: Chronic The goal hemoglobin in dialysis patients is 10-11. He may need IV iron and/or EPO while admitted, and I will monitor. Qualifiers: Chronic kidney disease stage: on chronic dialysis Qualified Code(s): N18.6 - End stage renal disease; D63.1 - Anemia in chronic kidney disease; Z99.2 - Dependence on renal dialysis (6) Proteinuria Current Visit: Yes Status: Chronic His urinalysis demonstrated proteinuria. He has known renal disease. Qualifiers: Proteinuria type: persistent Qualified Code(s): R80.1 - Persistent proteinuria, unspecified History of Present Illness - Reason for Consult Consult date: 10/04/18 end stage renal disease Requesting physician: Theresa Vaz - Chief Complaint ESRD - History of Present Illness The patient is a very pleasant 73-year-old male with a past medical history of end-stage renal disease on hemodialysis every Sunday/Sunday/ y, hypertension, anemia of chronic kidney disease and etc. Nephrology was consulted because of his end-stage renal disease. He presented with findings of unilateral weakness and slurred speech. He was diagnosed with a CVA. The patient's family was at bedside and helps provide history. He denied taking NSAIDs. He said he has been on dialysis approximately less than one year, and in that time his previous distributor publications Dr. Iniguez has since retired. The patient voiced displeasure with his current distributor publications (who does not round at [facility] so the [facility] was consulted instead), and he asked on his own volition about changing to the [facility]. Many of his family members arrived during my interview and exam. He said his last dialysis was Sunday. He did not affirm nausea, vomiting, or diarrhea. He said his dialysis treatments are typically 3 hours long and he normally receives Midodrine just before his dialysis. He recently had a right mid arm AV fistula placed with Dr. Coffey from [facility]. He said it is been used twice, but developed an infiltration. He still has a right-sided permacath, which generally works well, he affirmed. Past Med Surg Social Fam HX - Past Medical History Medical history: cancer, CVA, diabetes, glaucoma, hyperlipidemia, hypertension, renal disease, other Additional medical history: skin cancer Psychiatric history: depression - Past Surgical History Surgical History: angioplasty/stent, cataract, coronary bypass (CABG), orthopedic, other Additional surgical history: left foot surgery, cardiac stents x9, skin cancer removed, back surgery, - Social History Smoking Status: Never smoker Smokeless Tobacco Status: No Alcohol use: none Drug use: none - Family History Father Living Status: Hx Family Cardiac Disorders: Yes Mother Adopted: No Living Status: Hx Family Cardiac Disorders: Yes Hx Family Cancer: Yes (liver cancer) Medications and Allergies Insulin ASPART [Novolog Flexpen] 2 - 10 units SQ TIDAC 12/16/16 [History] Clopidogrel [Plavix] 75 mg PO DAILY 01/02/17 [History] Finasteride [Proscar] 5 mg PO DAILY 01/02/17 [History] Fluticasone Propionate Nasal [Flonase] 2 spray NS DAILY PRN 01/02/17 [History] Nitroglycerin [Nitrostat] 0.4 mg SL Q5M PRN 01/02/17 [History] Rosuvastatin [Crestor] 40 mg PO HS 01/02/17 [History] carBAMazepine [Tegretol] 200 mg PO TID 01/02/17 [History] Omeprazole [PriLOSEC] 40 mg PO DAILY 01/21/17 [History] Pregabalin [Lyrica] 100 mg PO BID 09/07/17 [History] Calcitriol [Rocaltrol] 0.25 mcg PO DAILY 10/04/18 [History] Calcium Acetate [Phos-LO] 1,334 mg PO TIDWM 10/04/18 [History] Ergocalciferol (VITAMIN D2) [Vitamin D2] 50,000 units PO WE 10/04/18 [History] Insulin Degludec [Tresiba Flextouch U-200] 80 units SQ HS 10/04/18 [History] Isosorbide MONOnitrate (24 HR) [Imdur] 30 mg PO DAILY 10/04/18 [History] Midodrine HCl 10 mg PO FIGUEROA 10/04/18 [History] Rivastigmine Patch [Exelon] 9.5 mg TP DAILY 10/04/18 [History] Allergy/AdvReac Type Severity Reaction Status Date / Time No Known Allergies Allergy Verified 10/04/18 19:00 Review of Systems All Systems: reviewed and no additional remarkable complaints except as stated Exam - Vital Signs Vital signs: Initial Vital Signs Temp Pulse Resp BP Pulse Ox 98.6 F 82 18 137/76 94 10/04/18 09:00 10/04/18 09:00 10/04/18 09:00 10/04/18 09:00 10/04/18 09:00 Vital Signs - Last 8 Hours Temp Pulse Resp BP Pulse Ox 10/04/18 15:50 97.9 F 72 18 155/69 95 10/04/18 12:47 76 16 122/49 99 Intake and Output 10/04/18 10/04/18 10/04/18 07:59 15:59 23:59 Other: Weight 95.98 kg Blood Glucose* 267 Patient Weight 10/04/18 23:59 Weight 95.98 kg - General Appearance General appearance: well-developed, well-nourished, chronically ill, fatigue, frail EENT: ATNC, mucous membranes moist Additional Comments: right sided facial droop Neck: no JVD, supple Respiratory: clear (but diminished breath sounds in the bases) Cardiology: edema (trace LE edema), normal S1, normal S2 - Dialysis Access Dialysis Vascular Access: Arteriovenous Fistula (right mid arm AVF with ecchymosis/infiltration and soft thrill) Additional Comments: AV Access: he has a right sided Permacath without any exitsite erythema and the cuff was not exposed. Gastrointestinal: normoactive bowel sounds, no tenderness, no guarding Integumentary: no rash, warm and dry Neurologic: facial droop (right sided) Additional Comments: Appeared to exhibit right hemiparesis. He was still able to move all four extremities, but just weaker on the right. He had slightly stutter to his voice. Musculoskeletal: no erythema, no cyanosis Psychiatric: mood/affect appropriate, cooperative Results - Lab Results 10/04/18 09:07 10/04/18 09:07 Most recent lab results 10/04/18 09:07 Calcium 9.3 Consult Discharge Plan - Plan Referrals: Raoul Gaona DO [Primary Care Provider] -
[2018-10-05] MEDS: Insulin LISPRO 300 UNITS/3 ML VIAL SQ SCH ×4 (01:37→16:51)
[2018-10-05] MEDS: *HR* Heparin 5,000 UNIT/ML VIAL SQ SCH ×2 (05:53→16:48)
[2018-10-05] MEDS ORDERED: Fluticasone Propionate Nasal 50 MCG/SPRAY BOTTLE NS PRN (08:09)
[2018-10-05] MEDS ORDERED: MIDODRINE HCL 10 MG PO SCH (08:15)
--- NOTE | 2018-10-05 08:17 | Internal Med Progress Note ---
Hospitalist Progress Note - Encounter Date of Encounter: 10/05/18 Time of Encounter: 08:15 - Subjective Interval History: Patient was seen and examined. Was admitted for speech difficulty and right- sided weakness. Was found to have a small left ventral louie acute infarct. - Exam Vitals: Temp Pulse Resp BP Pulse Ox 97.9 F 66 18 156/75 94 10/05/18 06:53 10/05/18 06:53 10/05/18 06:53 10/05/18 06:53 10/05/18 06:53 Exam: GEN: NAD CVS: RRR. S1, S2, No m/r/g RESP: CTAB ABD: Soft, NT, ND, +BS EXT: No edema. 2+ DP. No rashes NEURO: Cranial 2 through 12 are intact. Patient has strength is about 2 out of 5 in both right upper right lower extremity. Other extremities are 5 out of 5. No sensory deficits. - Assessment and Plan (1) Acute CVA (cerebrovascular accident) Current Visit: Yes Status: Acute Assessment and Plan: Patient is already on Plavix. Aspirin added. Continue statin. We will need PTOT see him and likely will need placement to rehabilitation. Neurology is following. Carotids and echo need to be followed on. (2) HTN (hypertension) Current Visit: Yes Status: Acute Assessment and Plan: Continue home meds (3) CHF (congestive heart failure) Current Visit: Yes Status: Chronic Assessment and Plan: Continue home meds (4) Diabetes mellitus Current Visit: Yes Status: Chronic Assessment and Plan: Insulin sliding scale. Continue long-acting insulin. Accu-Cheks. (5) ESRD on dialysis Current Visit: Yes Status: Chronic Assessment and Plan: Dialysis per nephrology. (6) CAD (coronary artery disease) Current Visit: No Status: Chronic Assessment and Plan: Continue meds (7) DVT prophylaxis Current Visit: No Status: Acute Assessment and Plan: Heparin subcutaneous - Time Spent with Patient Total time spent is greater than 50% in coordination of care (as documented) at patient's floor/unit and/or counseling patient: Internal Medicine: Result - Labs CBC & Chem 7: 10/04/18 09:07 10/04/18 09:07 Labs: Short CBC 10/04/18 Range/Units 09:07 WBC 6.4 (4.3-11.1) K/mcL Hgb 10.2 L (12.9-16.9) g/dL Hct 31.6 L (37.5-50.1) % Plt Count 230 (140-400) K/mcL BMP 10/04/18 09:07 Sodium 141 Potassium 5.0 Chloride 100 Carbon Dioxide 27 BUN 76 H Creatinine 6.38 H Glucose 287 H Calcium 9.3 Cardiac Enzymes 10/04/18 Range/Units 09:07 Troponin I 0.03 (< 0.04) ng/mL Liver Function 10/04/18 Range/Units 09:07 Total Bilirubin 0.3 (0.3-1.0) mg/dL Direct Bilirubin 0.1 (0.0-0.2) mg/dL AST 11 L (13-39) Units/L ALT 9 (7-52) Units/L Alkaline Phosphatase 71 (34-104) Units/L Albumin 4.1 (3.5-5.7) g/dL Urine 10/04/18 Range/Units 09:56 Urine Color Yellow (Yellow) Urine Clarity Clear (Clear) Urine pH 7.0 (5.0-8.0) pH Units Ur Specific [place] 1.018 (1.010-1.025) Urine Protein >=300 H (Neg-Trace) mg/dL Urine Glucose (UA) 500 H (Normal) mg/dL - ABG Interpretation ABG results: PT/INR, D-dimer PT 11.0 Seconds (9.4-12.1) 10/04/18 09:07 - Impressions Impressions Head CT 10/04/18 09:07 IMPRESSION: 1. No acute intracranial abnormality. 2. Chronic microvascular white matter ischemic disease. D/ / 10/04/2018 10:38:15 Aditya Saenz MD / yennifer Interpreting Provider: Aditya Saenz MD Chest X-Ray 10/04/18 09:09 IMPRESSION: No acute cardiopulmonary process. D/ / Jeremi Kim MD / Jeremi Kim MD Interpreting Provider: Jeremi Kim MD Brain MRI 10/04/18 15:29 IMPRESSION: Small acute infarct left ventral louie. No associated hemorrhage. The findings were sent to the Radiology Results Communication [facility] at 9:43 pm on 10/04/2018to be communicated to a licensed caregiver. D/ / Bebeto Thakur MD / Bebeto Thakur MD Interpreting Provider: Bebeto Thakur MD Consult Discharge Plan - Plan Referrals: Raoul Gaona DO [Primary Care Provider] - (2) HTN (hypertension) Qualifiers: Hypertension type: essential hypertension Qualified Code(s): I10 - Essential (primary) hypertension (3) CHF (congestive heart failure) Qualifiers: Heart failure type: unspecified Heart failure chronicity: chronic Qualified Code(s): I50.9 - Heart failure, unspecified (4) Diabetes mellitus Qualifiers: Diabetes mellitus type: type 2 Diabetes mellitus chcf insulin use: with oil heaterman use Diabetes mellitus complication status: with kidney complications Diabetes mellitus complication detail: with chronic kidney disease Chronic kidney disease stage: unspecified stage Qualified Code(s): E11.22 - Type 2 diabetes mellitus with diabetic chronic kidney disease; Z79.4 - [facility] (current) use of insulin (6) CAD (coronary artery disease) Qualifiers: Coronary Disease-Associated Artery/Lesion type: bypass graft [place] vs. transplanted heart: [place] heart Associated angina: without angina Qualified Code(s): I25.810 - Atherosclerosis of coronary artery bypass graft(s) without angina pectoris
[2018-10-05] MEDS: carBAMazepine 200 MG TABLET PO SCH ×3 (09:50→22:31)
[2018-10-05] MEDS: Finasteride 5 MG TABLET PO SCH (09:50)
[2018-10-05] MEDS: Aspirin Enteric Coated 81 MG Tablet PO SCH (09:50)
[2018-10-05] MEDS: Pregabalin 50 MG CAPSULE PO SCH ×2 (09:50→22:31)
[2018-10-05] MEDS: Isosorbide MONOnitrate (24 HR) 30 MG TAB.ER.24H PO SCH (09:50)
[2018-10-05] MEDS: Rivastigmine Patch 9.5 MG PATCH.TD24 TP SCH (10:32)
--- NOTE | 2018-10-05 10:58 | Neurology Progress Note ---
Date of Encounter: 10/05/18 Time of Encounter: 10:53 Assessment and Plan (1) Acute CVA (cerebrovascular accident) Current Visit: Yes Status: Acute Patient developed acute onset of right sided hemiparesis, and slurred speech, with positive findings of left pontine infarct likely secondary to small vessel etiology. Already on Aspirin and Plavix Echocardiography does showed significantly reduced LVEF of 35% and regional wall motion abnormalities which may be associated with increased risk of embolic stroke but i do not believe this is an embolic event so i would not recommend anticoagulation therapy. Will keep him on Aspirin 81mg daily and Plavix 75mg daily and pursue risk factor modification. Still weak to the right side, may benefit from PT. Prognosis from this CVA is fair since size of stroke is small. Please continue medical and supportive care Subjective Principal diagnosis: right sided weakness, CVA Interval history: Patient seen and examined. He is sleeping but easily aroused and he states that he is feeling better. right sided hemiparesis slightly improved speech appears fluent but he has Parkinson disease therefore speech output is reduced. No headaches. No mental status changes. MRI of brain completed and showed small left pontine infarct. Objective - Constitutional Vitals: Temp Pulse Resp BP Pulse Ox 97.9 F 66 18 156/75 94 10/05/18 06:53 10/05/18 06:53 10/05/18 06:53 10/05/18 06:53 10/05/18 06:53 - Head Head exam: Present: atraumatic - Eye Eye exam: Present: EOMI, normal appearance, nystagmus (None) - Neurological Exam Sensorimotor examination: Present: intact Motor examination - right side: 4/5: deltoids, biceps, triceps, wrist flexion, wrist extension, telescope maintenance, hip flexors, tibialis Anterior, quadriceps, toe extension (EHL), plantarflexion Motor examination - left side: 5/5: deltoids, biceps, triceps, wrist flexion, wrist extension, hip flexors, telescope maintenance, quadriceps, tibialis Anterior, toe extension (EHL), plantarflexion Sensation intact: Present: intact Posture: Present: other (None) Reflex and gait examination: other (Muscle rigidity noted bilaterally consistent with history of Parkinson disease) Reflexes: Biceps: 2+, Triceps: 2+, Brachioradialis: 2+, Patella: 2+, Achilles: 2+ Mental Status Examination: Present: awake, alert, oriented to person, oriented to place, oriented to time, follows commands appropriately, answers questions appropriately, no agnosia, no aphasia, no aproxia Cranial nerve examination: Present: PERRL, EOMI, visual pabon intact, corneal reflexes brisk symmetrically, sensory to face intact, mastication intact, no facial asymmetry is present (mild right facial flattening noted), no dysarthria (mild), hearing is intact symmetrically, soft palate elevates bilaterally upon phonation, gag reflex intact, flexes SCM and trapezius muscles symmetrically with full power, tongue protrudes midline (tongue protrude to right slightly) Ataxia: truncal ataxia (Gait not assessed) Results - Laboratory Findings CBC and BMP: 10/05/18 11:10 10/05/18 11:10 Abnormal lab findings: Abnormal lab results RBC 3.14 M/mcL (4.19-5.50) L 10/04/18 09:07 Hgb 10.2 g/dL (12.9-16.9) L 10/04/18 09:07 Hct 31.6 % (37.5-50.1) L 10/04/18 09:07 MCV 100.6 fL (83.0-100.0) H 10/04/18 09:07 BUN 76 mg/dL (8-23) H 10/04/18 09:07 6.38 mg/dL (0.70-1.30) H 10/04/18 09:07 Est GFR ( Amer) 11 (> 60) L 10/04/18 09:07 Est GFR (Non-Af Amer) 9 (> 60) L 10/04/18 09:07 Glucose 287 mg/dL (70-105) H 10/04/18 09:07 POC Glucose 267 mg/dL (70-99) H 10/04/18 09:01 325 (280-300) H 10/04/18 09:07 AST 11 Units/L (13-39) L 10/04/18 09:07 >=300 mg/dL (Neg-Trace) H 10/04/18 09:56 500 mg/dL (Normal) H 10/04/18 09:56 Trace (Negative) H 10/04/18 09:56 3-5 per hpf (0-3) H 10/04/18 09:56 Ur Squamous Epith Cells Many per lpf (None-Few) H 10/04/18 09:56 Hep Bs Antibody < 3.10 mIU/mL (10.00-) L 10/04/18 17:02 Consult Discharge Plan - Plan Referrals: Raoul Gaona DO [Primary Care Provider] -
--- NOTE | 2018-10-05 11:06 | Nephrology Progress Note ---
Date of Encounter: 10/05/18 Time of Encounter: 09:07 - Assessment and Plan (1) ESRD on dialysis Current Visit: Yes Status: Chronic The patient is ESRD on hemodialysis every Sunday/Sunday/Sunday. He completed dialysis yesterday. Though ordered in advance, I wanted to review his labs this morning, but they are still pending. I did review his vital signs, previous imaging, medication list and progress notes. Assuming that he received enough clearance from the gentle dialysis of yesterday, I would next recommend dialysis on Sunday. Labs are still pending. Continue to follow a renal protective strategy by avoiding nephrotoxic agents as able, strict I's and O's, daily weights, renal dosing, renal diet. I updated the floor RN Re: midodrine: to only be given on dialysis days (MWF). Thank you. (2) Intra-dialytic hypotension Current Visit: Yes Status: Chronic See above, re: Midodrine. (3) Acute CVA (cerebrovascular accident) Current Visit: Yes Status: Acute As per primary/neurology (4) Weakness Current Visit: Yes Status: Acute As per primary/neurology (5) Anemia in chronic kidney disease Current Visit: Yes Status: Chronic The goal hemoglobin in dialysis patients is 10-11. He may need IV iron and/or EPO while admitted, and I will monitor. Qualifiers: Chronic kidney disease stage: on chronic dialysis Qualified Code(s): N18.6 - End stage renal disease; D63.1 - Anemia in chronic kidney disease; Z99.2 - Dependence on renal dialysis (6) Proteinuria Current Visit: Yes Status: Chronic His urinalysis demonstrated proteinuria. He has known renal disease. Qualifiers: Proteinuria type: persistent Qualified Code(s): R80.1 - Persistent proteinuria, unspecified Subjective Principal diagnosis: right sided weakness, CVA Interval history: The patient was seen and examined earlier today. His lab work was still pending at the time of rounds. No family was present. I discussed his care with the floor RN, and I would recommend giving Midodrine only on dialysis days. Today, the patient affirmed still feeling weak on the right side. He denied nausea, vomiting, cramping with dialysis yesterday, or diarrhea since yesterday. Objective - Vital Signs Vital signs: Vital Signs Temp Pulse Resp BP Pulse Ox 10/05/18 06:53 97.9 F 66 18 156/75 94 10/05/18 04:21 98.5 F 64 17 164/74 95 10/05/18 00:33 98.1 F 58 16 169/76 10/04/18 23:28 97.9 F 66 16 175/77 10/04/18 22:14 97.7 F 63 18 186/80 10/04/18 20:26 97.7 F 16 134/71 10/04/18 20:10 113/60 10/04/18 19:55 127/68 10/04/18 19:40 148/72 10/04/18 19:25 135/73 10/04/18 19:10 147/74 10/04/18 18:55 148/80 10/04/18 18:40 152/79 10/04/18 18:25 179/77 10/04/18 18:10 98 F 18 152/78 10/04/18 15:50 97.9 F 72 18 155/69 95 10/04/18 12:47 76 16 122/49 99 10/04/18 11:15 77 16 153/68 98 Intake and Output 10/04/18 10/05/18 10/05/18 23:59 07:59 15:59 Intake Total 600 / 600 120 / 120 Output Total 1600 / 1600 Balance -1000 / -1000 120 / 120 Intake: Oral 120 / 120 Intake, Rinseback and Flushes 600 / 600 Output: Total Dialysis (HD) Output 1600 / 1600 Other: Meal Breakfast Percent of Meal Consumed 90% # Urine Diapers 1 Blood Glucose* 75 108 Hemodialysis Net Fluid Removed 1000 (mL) - General Appearance Exam: General appearance: well-developed, thin appearing, chronically ill, fatigue, frail EENT: ATNC, mucous membranes moist Additional Comments: right sided facial droop Neck: no JVD, supple Respiratory: clear (but diminished breath sounds in the bases) Cardiology: no edema, normal S1, normal S2 - Dialysis Access Dialysis Vascular Access: Arteriovenous Fistula (right mid arm AVF with ecchymosis/infiltration and soft thrill) Additional Comments: AV Access: he has a right sided Permacath without any exit site erythema and the cuff was not exposed. Gastrointestinal: normoactive bowel sounds, no tenderness, no guarding Integumentary: no rash, warm and dry Neurologic: facial droop (right sided) Additional Comments: Appeared to exhibit right hemiparesis. He had slightly stutter to his voice. His tongue appeared to deviate to the right. Musculoskeletal: no erythema, no cyanosis Psychiatric: mood/affect appropriate, cooperative - Lab 10/04/18 09:07 10/04/18 09:07 Consult Discharge Plan - Plan Referrals: Raoul Gaona DO [Primary Care Provider] -
[2018-10-05 11:33] LABS: Basophils % 0.6 %; Eosinophils # 0.3 K/mcL (0.0-0.6); Eosinophils % 4.4 %; Hematocrit 30.6 % (37.5-50.1); Hemoglobin 9.7 g/dL (12.9-16.9); Immature Granulocytes % 0.6 % (0-4); Lymphocytes # 1.7 K/mcL (0.6-4.6); Lymphocytes % 26.7 %; Mean Corpuscular HGB Conc 31.7 g/dL (31.6-35.5); Mean Corpuscular Hemoglobin 31.4 pg (28.0-33.3); Mean Platelet Volume 10.1 fL (9.4-12.4); Monocytes # 0.5 K/mcL (0.0-1.3); Monocytes % 8.2 %; Neutrophils # 3.8 K/mcL (1.6-8.9); Platelet Count 234 K/mcL (140-400); Red Blood Count 3.09 M/mcL (4.19-5.50); Red Cell Distribution Width 13.3 % (11.5-14.5); Segmented Neutrophils % 59.5 %; White Blood Count 6.4 K/mcL (4.3-11.1)
[2018-10-05 11:52] LABS: Calcium 8.9 mg/dL (8.6-10.3); Chol/HDL Ratio 5.4 (0-4.9); Phosphorous 6.2 mg/dL (2.7-4.5); Potassium 4.7 mEq/L (3.5-5.1)
[2018-10-05] MEDS: Calcium Acetate 667 MG CAPSULE PO SCH ×2 (12:18→16:47)
[2018-10-05] MEDS ORDERED: INSULIN DEGLUDEC 80 UNIT SQ SCH (21:00)
[2018-10-05] MEDS ORDERED: Insulin DETEMIR 100 UNIT/ML X5UNITS SQ SCH (21:00)
[2018-10-06] MEDS: Insulin LISPRO 300 UNITS/3 ML VIAL SQ SCH ×4 (01:57→18:04)
[2018-10-06] MEDS: *HR* Heparin 5,000 UNIT/ML VIAL SQ SCH ×2 (05:46→18:04)
[2018-10-06] MEDS: Finasteride 5 MG TABLET PO SCH (08:31)
[2018-10-06] MEDS: Pregabalin 50 MG CAPSULE PO SCH ×2 (08:31→21:07)
[2018-10-06] MEDS: Calcium Acetate 667 MG CAPSULE PO SCH ×3 (08:31→18:04)
[2018-10-06] MEDS: carBAMazepine 200 MG TABLET PO SCH ×3 (08:31→21:07)
[2018-10-06] MEDS: Isosorbide MONOnitrate (24 HR) 30 MG TAB.ER.24H PO SCH (08:31)
[2018-10-06] MEDS: Aspirin Enteric Coated 81 MG Tablet PO SCH (08:32)
[2018-10-06] MEDS: Rivastigmine Patch 9.5 MG PATCH.TD24 TP SCH (08:50)
[2018-10-06] MEDS: *HR* Dextrose 50 % in Water (Syg) 50 ML SYRINGE IVP PRN (09:13)
--- NOTE | 2018-10-06 09:41 | Internal Med Progress Note ---
Hospitalist Progress Note - Encounter Date of Encounter: 10/06/18 Time of Encounter: 09:36 - Subjective Interval History: Patient was seen and examined. Was admitted for speech difficulty and right- sided weakness. Was found to have a small left ventral louie acute infarct. This morning suddenly he became somewhat unresponsive. Was not following commands. His nurse checked glucose and it was in the 30s. Was treated per protocol and went up to low 100s but remained unresponsive. - Exam Vitals: Temp Pulse Resp BP Pulse Ox 97.9 F 86 18 150/70 92 10/06/18 08:59 10/06/18 08:59 10/06/18 08:59 10/06/18 08:59 10/06/18 07:42 Exam: GEN: NAD CVS: RRR. S1, S2, No m/r/g RESP: CTAB ABD: Soft, NT, ND, +BS EXT: No edema. 2+ DP. No rashes NEURO:Pupils equal and reactive. Patient is not following much commands. He tried to squeeze my hand on the right but otherwise was not following commands. - Assessment and Plan (1) Acute CVA (cerebrovascular accident) Current Visit: Yes Status: Acute Assessment and Plan: Had a sudden change in mental status this morning. Is somewhat unresponsive. Will get a STAT CT head. CMP, CBC, PT/INR, lactic acid, TSH, ammonia level. Patient is already on Plavix. Aspirin added. Continue statin. Neurology is following. Echo showed EF of 35%, No PFO. Previous echo was 40% in 2017 (2) HTN (hypertension) Current Visit: Yes Status: Acute Assessment and Plan: Continue home meds (3) CHF (congestive heart failure) Current Visit: Yes Status: Chronic Assessment and Plan: Continue home meds (4) Diabetes mellitus Current Visit: Yes Status: Chronic Assessment and Plan: Insulin sliding scale. Continue long-acting insulin. Accu-Cheks. Had a hypoglycemic episode this am. Resolved with protocol treatment. (5) ESRD on dialysis Current Visit: Yes Status: Chronic Assessment and Plan: Dialysis per nephrology. (6) CAD (coronary artery disease) Current Visit: No Status: Chronic Assessment and Plan: Continue meds (7) DVT prophylaxis Current Visit: No Status: Acute Assessment and Plan: Heparin subcutaneous - Time Spent with Patient Total time spent is greater than 50% in coordination of care (as documented) at patient's floor/unit and/or counseling patient: Internal Medicine: Result - Labs CBC & Chem 7: 10/05/18 11:10 10/05/18 11:10 Labs: Short CBC 10/05/18 Range/Units 11:10 WBC 6.4 (4.3-11.1) K/mcL Hgb 9.7 L (12.9-16.9) g/dL Hct 30.6 L (37.5-50.1) % Plt Count 234 (140-400) K/mcL Neutrophils # 3.8 (1.6-8.9) K/mcL BMP 10/05/18 11:10 Sodium 140 Potassium 4.7 Chloride 98 Carbon Dioxide 32 H BUN 55 H Creatinine 5.88 H Glucose 136 H Calcium 8.9 - ABG Interpretation ABG results: PT/INR, D-dimer PT 11.0 Seconds (9.4-12.1) 10/04/18 09:07 - Impressions Impressions Echocardiogram 10/04/18 14:37 Impressions: LVEF grossly 35%. Severe global left ventricular systolic dysfunction. Mild left ventricular diastolic dysfunction. Mild RV hypokinesis. Mild aortic regurgitation. Mild mitral regurgitation. Mild-moderate tricuspid regurgitation. Unable to estimate RVSP due to lack of IVC visualization. Non-diagnostic of PFO with agitated saline contrast. Left Ventricular Wall Motion: Rest Echo Findings The apex, apical inferior, mid inferior, basal inferior, apical anterior, mid anterior, basal anterior, apical septal, mid inferior septal, basal inferior septal, apical lateral, mid anterior lateral, basal anterior lateral, mid anterior septal, mid inferior lateral, basal anterior septal and basal inferior lateral schroeder were hypokinetic. Findings: Study Quality * Technically sub-optimal due to poor echocardiographic windows. ECG Findings * Normal sinus rhythm. Left Ventricle * LVEF 35%. * Normal LV chamber size, wall thickness. * Severe global left ventricular systolic dysfunction. * Mild left ventricular diastolic dysfunction. * Definity echo contrast was not used. Right Ventricle * Normal right ventricular structure with mild hypokinesis. Left Atrium * Normal left atrial size. Right Atrium * Normal right atrial size. Interatrial Septum * Interatrial septum not well evaluated. * Non-diagnostic of PFO with agitated saline contrast. Aortic Valve * Trileaflet aortic valve. * Mildly calcified aortic valve leaflets. * Mild aortic regurgitation. * No aortic stenosis. Mitral Valve * Mildly calcified mitral valve leaflets. * Mild mitral regurgitation. * No mitral stenosis. Tricuspid Valve * Normal tricuspid valve structure. * No tricuspid stenosis. * Mild-moderate tricuspid regurgitation. * Estimated RV-RA gradient 32 mmHg. * Unable to estimate RVSP due to lack of IVC visualization. Pulmonic Valve * Pulmonic valve is not well visualized. * No pulmonic stenosis. * Trace pulmonic regurgitation. Aorta * Normally sized aortic root. Pericardium * The pericardium appears normal. IVC * The IVC is not well evaluated. 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 transplanted heart: [place] heart Associated angina: without angina Qualified Code(s): I25.810 - Atherosclerosis of coronary artery bypass graft(s) without angina pectoris
[2018-10-06 10:30] LABS: Basophils % 0.3 %; Eosinophils # 0.1 K/mcL (0.0-0.6); Hematocrit 30.1 % (37.5-50.1); Hemoglobin 9.6 g/dL (12.9-16.9); Immature Granulocytes % 0.4 % (0-4); Lymphocytes # 0.8 K/mcL (0.6-4.6); Lymphocytes % 11.8 %; Mean Corpuscular HGB Conc 31.9 g/dL (31.6-35.5); Mean Corpuscular Hemoglobin 32.2 pg (28.0-33.3); Mean Platelet Volume 10.3 fL (9.4-12.4); Monocytes # 0.6 K/mcL (0.0-1.3); Monocytes % 8.7 %; Neutrophils # 5.4 K/mcL (1.6-8.9); Platelet Count 230 K/mcL (140-400); Red Blood Count 2.98 M/mcL (4.19-5.50); Red Cell Distribution Width 13.2 % (11.5-14.5); Segmented Neutrophils % 77.8 %; White Blood Count 6.9 K/mcL (4.3-11.1)
[2018-10-06 10:41] LABS: Prothrombin Time 11.8 Seconds (9.4-12.1)
--- NOTE | 2018-10-06 10:45 | Nephrology Progress Note ---
Date of Encounter: 10/06/18 Time of Encounter: 09:40 - Assessment and Plan (1) ESRD on dialysis Current Visit: Yes Status: Chronic ESRD on HD MWF and based upon the medically necessary review of his labs, he does not need extra HD today (Sunday). I would next recommend dialysis tomorrow as per his regular schedule, i.e. every MWF. (2) Intra-dialytic hypotension Current Visit: Yes Status: Chronic (3) Acute CVA (cerebrovascular accident) Current Visit: Yes Status: Acute (4) Weakness Current Visit: Yes Status: Acute (5) Anemia in chronic kidney disease Current Visit: Yes Status: Chronic Qualifiers: Chronic kidney disease stage: on chronic dialysis Qualified Code(s): N18.6 - End stage renal disease; D63.1 - Anemia in chronic kidney disease; Z99.2 - Dependence on renal dialysis (6) Proteinuria Current Visit: Yes Status: Chronic Qualifiers: Proteinuria type: persistent Qualified Code(s): R80.1 - Persistent proteinuria, unspecified Subjective Principal diagnosis: right sided weakness, CVA Interval history: The patient was seen and examined, and he was resting comfortably. Objective - Vital Signs Vital signs: Vital Signs Temp Pulse Resp BP Pulse Ox 10/06/18 08:59 97.9 F 86 18 150/70 10/06/18 07:42 97.9 F 89 18 153/71 92 10/06/18 04:03 98.1 F 76 17 140/78 96 10/05/18 23:59 98.2 F 72 17 150/69 94 10/05/18 19:22 98.7 F 80 17 131/71 92 10/05/18 16:30 98.9 F 89 17 105/56 92 10/05/18 11:05 98.2 F 72 17 148/76 94 Intake and Output 10/05/18 10/06/18 10/06/18 23:59 07:59 15:59 Intake Total 360 / 840 Balance 360 / 840 Intake: Oral 360 / 840 Other: Meal Dinner Percent of Meal Consumed 100% # Urine Diapers 0 0 Weight 97 kg Blood Glucose* 328 53 103 Patient Weight 10/06/18 23:59 Weight 97 kg - General Appearance General appearance: Present: well-developed, obese, fatigue, frail Exam: He appeared to be resting comfortably EENT: Present: ATNC Cardiology: Present: edema Dialysis Vascular Access: Venous Catheter Neurologic: Present: no focal deficit - Lab 10/06/18 09:57 10/06/18 09:57 Consult Discharge Plan - Plan Referrals: Raoul Gaona DO [Primary Care Provider] -
[2018-10-06 10:48] LABS: Albumin 3.7 g/dL (3.5-5.7); Albumin/Globulin Ratio 1.2 (1.1-2.2); Bilirubin,Total 0.3 mg/dL (0.3-1.0); Calcium 9.1 mg/dL (8.6-10.3); Globulin 3.1 g/dL (2.4-3.5); Total Protein 6.8 g/dL (6.4-8.9)
[2018-10-06] MEDS: Insulin DETEMIR 100 UNIT/ML X5UNITS SQ SCH (21:07)
[2018-10-07] MEDS: Insulin LISPRO 300 UNITS/3 ML VIAL SQ SCH ×4 (00:23→17:53)
[2018-10-07] MEDS: *HR* Heparin 5,000 UNIT/ML VIAL SQ SCH ×2 (05:30→17:57)
[2018-10-07] MEDS ORDERED: 0.9 % Sodium Chloride 250 ML IVC PRN (06:48)
[2018-10-07 07:39] LABS: Basophils % 0.2 %; Eosinophils # 0.1 K/mcL (0.0-0.6); Eosinophils % 0.6 %; Hematocrit 29.7 % (37.5-50.1); Hemoglobin 9.7 g/dL (12.9-16.9); Immature Granulocytes % 0.4 % (0-4); Lymphocytes # 1.6 K/mcL (0.6-4.6); Lymphocytes % 19.4 %; Mean Corpuscular HGB Conc 32.7 g/dL (31.6-35.5); Mean Corpuscular Hemoglobin 32.7 pg (28.0-33.3); Mean Platelet Volume 10.6 fL (9.4-12.4); Monocytes # 0.6 K/mcL (0.0-1.3); Neutrophils # 5.7 K/mcL (1.6-8.9); Platelet Count 235 K/mcL (140-400); Red Blood Count 2.97 M/mcL (4.19-5.50); Red Cell Distribution Width 13.2 % (11.5-14.5); Segmented Neutrophils % 71.4 %
[2018-10-07 07:57] LABS: Calcium 9.3 mg/dL (8.6-10.3); Potassium 5.8 mEq/L (3.5-5.1)
--- NOTE | 2018-10-07 08:06 | Internal Med Progress Note ---
Hospitalist Progress Note - Encounter Date of Encounter: 10/07/18 Time of Encounter: 08:00 - Subjective Interval History: Patient was seen and examined. Still lethargic this morning. Awake but is mumbling and not clear. He tries to follow commands but not always. Yesterday morning, he suddenly he became somewhat unresponsive. Was not following commands . His nurse checked glucose and it was in the 30s. Was treated per protocol and went up to low 100s but remained unresponsive. I sent him for a STAT CT head and came back with no changes compared to previous. He was back to baseline after that. Was admitted for speech difficulty and right-sided weakness. Was found to have a small left ventral louie acute infarct. - Exam Vitals: Temp Pulse Resp BP Pulse Ox 98.2 F 90 19 136/62 90 10/07/18 07:03 10/07/18 07:03 10/07/18 07:03 10/07/18 07:03 10/07/18 07:03 Exam: GEN: NAD CVS: RRR. S1, S2, No m/r/g RESP: CTAB ABD: Soft, NT, ND, +BS EXT: No edema. 2+ DP. No rashes NEURO: Cranial 2 through 12 are intact. Patient has strength is about 2 out of 5 in both right upper right lower extremity. Other extremities are 5 out of 5. No sensory deficits.. - Assessment and Plan (1) Acute CVA (cerebrovascular accident) Current Visit: Yes Status: Acute Assessment and Plan: Had a sudden change in mental status yesterday and CT head was negative compared to previous. He is still not back to himself today compared to when I saw him 2 days ago. he was back to himself yesterday after he returned from CT head. I wonder if he had another TIA. Will get an MRI brain repeated. Patient is already on Plavix. Aspirin added. Continue statin. Neurology is following. Speech to see. May need MBS. Echo showed EF of 35%, No PFO. Previous echo was 40% in 2017. Carotids negative (2) Hyperkalemia Current Visit: No Status: Acute Assessment and Plan: Should correct with HD today. (3) HTN (hypertension) Current Visit: Yes Status: Acute Assessment and Plan: Continue home meds (4) CHF (congestive heart failure) Current Visit: Yes Status: Chronic Assessment and Plan: Continue home meds (5) Diabetes mellitus Current Visit: Yes Status: Chronic Assessment and Plan: Insulin sliding scale. Continue long-acting insulin. Accu-Cheks. Had a hypo glycemic episode this am. Resolved with protocol treatment. (6) ESRD on dialysis Current Visit: Yes Status: Chronic Assessment and Plan: Dialysis per nephrology. (7) CAD (coronary artery disease) Current Visit: No Status: Chronic Assessment and Plan: Continue meds (8) Chronic systolic (congestive) heart failure Current Visit: Yes Status: Acute Assessment and Plan: c/w home meds (9) DVT prophylaxis Current Visit: No Status: Acute Assessment and Plan: Heparin subcutaneous (10) Goals of care, counseling/discussion Current Visit: Yes Status: Acute Assessment and Plan: Will need placement. - Time Spent with Patient Total time spent is greater than 50% in coordination of care (as documented) at patient's floor/unit and/or counseling patient: Internal Medicine: Result - Labs CBC & Chem 7: 10/07/18 06:54 10/07/18 06:54 Labs: Short CBC 10/06/18 10/07/18 Range/Units 09:57 06:54 WBC 6.9 8.0 (4.3-11.1) K/mcL Hgb 9.6 L 9.7 L (12.9-16.9) g/dL Hct 30.1 L 29.7 L (37.5-50.1) % Plt Count 230 235 (140-400) K/mcL Neutrophils # 5.4 5.7 (1.6-8.9) K/mcL BMP 10/06/18 10/07/18 09:57 06:54 Sodium 142 141 Potassium 5.0 5.8 H Chloride 100 101 Carbon Dioxide 29 27 BUN 68 H 80 H Creatinine 7.02 H 7.80 H Glucose 101 165 H Calcium 9.1 9.3 Liver Function 10/06/18 Range/Units 09:57 Total Bilirubin 0.3 (0.3-1.0) mg/dL AST 10 L (13-39) Units/L ALT 8 (7-52) Units/L Alkaline Phosphatase 71 (34-104) Units/L Albumin 3.7 (3.5-5.7) g/dL - ABG Interpretation ABG results: PT/INR, D-dimer PT 11.8 Seconds (9.4-12.1) 10/06/18 09:57 - Impressions Impressions Head CT 10/06/18 09:31 IMPRESSION: No acute intracranial abnormality. The appearance of the brain is unchanged from 2 days earlier. D/ / 10/06/2018 11:22:56 Claudy Darnell MD / earnold Interpreting Provider: Claudy Darnell MD Consult Discharge Plan - Plan Referrals: Raoul Gaona DO [Primary Care Provider] - (3) HTN (hypertension) Qualifiers: Hypertension type: essential hypertension Qualified Code(s): I10 - Essential (primary) hypertension (4) CHF (congestive heart failure) Qualifiers: Heart failure type: unspecified Heart failure chronicity: chronic Qualified Code(s): I50.9 - Heart failure, unspecified (5) Diabetes mellitus Qualifiers: Diabetes mellitus type: type 2 Diabetes mellitus intermediate project manager insulin use: with intermediate project manager use Diabetes mellitus complication status: with kidney complications Diabetes mellitus complication detail: with chronic kidney disease Chronic kidney disease stage: unspecified stage Qualified Code(s): E11.22 - Type 2 diabetes mellitus with diabetic chronic kidney disease; Z79.4 - termite treater (current) use of insulin (7) CAD (coronary artery disease) Qualifiers: Coronary Disease-Associated Artery/Lesion type: bypass graft [place] vs. transplanted heart: [place] heart Associated angina: without angina Qualified Code(s): I25.810 - Atherosclerosis of coronary artery bypass graft(s) without angina pectoris
[2018-10-07] MEDS: Calcium Acetate 667 MG CAPSULE PO SCH ×3 (08:35→17:56)
[2018-10-07] MEDS: Rivastigmine Patch 9.5 MG PATCH.TD24 TP SCH (08:42)
--- NOTE | 2018-10-07 09:38 | Nephrology Progress Note ---
Date of Encounter: 10/07/18 Time of Encounter: 08:03 - Assessment and Plan (1) ESRD on dialysis Current Visit: Yes Status: Chronic End-stage renal disease on hemodialysis thrice weekly every Sunday/Sunday/Sunday. He last dialyzed on Sunday, and today I reviewed his labs, vital signs, progress notes, imaging, medication list that required a high degree of evaluation and management plus medical decision making to composes dialysis orders for today. I also placed standing dialysis orders that will be in effect for Sunday and Sunday of this week if he should remain in the hospital. Hyperkalemia: I have used a 2K dialysis bath, and recommend he have a renal diet that is low in potassium during this hospitalization and going forward. I recommend strict I's and O's, daily weights, renal dosing, renal diet, and avoidance of nephrotoxins if able. Thank you (2) Intra-dialytic hypotension Current Visit: Yes Status: Chronic Continue his home Midodrine to help prevent intra-dialytic hypotension. (3) Acute CVA (cerebrovascular accident) Current Visit: Yes Status: Acute As per primary/neurology. With his dialysis orders, I ordered slower and safer dialysate and blood flow rates, as well as set a higher threshold for low blood pressure cut offs during dialysis, which will help be more gentle given that he has had a recent stroke. (4) Weakness Current Visit: Yes Status: Acute (5) Anemia in chronic kidney disease Current Visit: Yes Status: Chronic The goal hemoglobin in dialysis patients is 10-11. He may need IV iron and/or EPO while admitted, and I will monitor. Qualifiers: Chronic kidney disease stage: on chronic dialysis Qualified Code(s): N18.6 - End stage renal disease; D63.1 - Anemia in chronic kidney disease; Z99.2 - Dependence on renal dialysis (6) Proteinuria Current Visit: Yes Status: Chronic His urinalysis demonstrated proteinuria. He has known renal disease. Qualifiers: Proteinuria type: persistent Qualified Code(s): R80.1 - Persistent proteinuria, unspecified (7) Hyperkalemia Current Visit: No Status: Acute See above. I recommend HD today for clearance and renal diet as described above. Subjective Principal diagnosis: right sided weakness, CVA Interval history: The patient was seen and examined, and he was by himself in the exam room without family members present. He was able to affirm his location and date, but because of his slurred speech, he was unable to provide any further subjective history. Objective - Vital Signs Vital signs: Vital Signs Temp Pulse Resp BP Pulse Ox 10/07/18 07:03 98.2 F 90 19 136/62 90 10/07/18 03:47 99.4 F 100 20 146/74 92 10/06/18 23:29 98.2 F 96 20 167/65 90 10/06/18 20:51 92 10/06/18 19:37 98.9 F 100 20 147/67 92 10/06/18 16:02 97.8 F 88 18 138/68 92 10/06/18 11:40 97.7 F 80 18 136/76 94 Intake and Output 10/06/18 10/07/18 10/07/18 23:59 07:59 15:59 Intake Total 240 / 360 Balance 240 / 360 Intake: Oral 240 / 360 Other: Meal Dinner Percent of Meal Consumed 90% # Urine Diapers 1 1 Blood Glucose* 368 184 - General Appearance Exam: General appearance: thin appearing, chronically ill, fatigue, frail EENT: ATNC, mucous membranes dry Additional Comments: right sided facial droop Neck: no JVD, supple Respiratory: clear (but diminished breath sounds in the bases) Cardiology: no edema, normal S1, normal S2 - Dialysis Access Dialysis Vascular Access: Arteriovenous Fistula (right mid arm AVF with ecchymosis/infiltration and soft thrill) Additional Comments: AV Access: he also has a right sided Permacath without any exit site erythema and the cuff was not exposed. Gastrointestinal: normoactive bowel sounds, no tenderness, no guarding Integumentary: no rash, warm and dry Neurologic: facial droop (right sided), and more slurred speech today Additional Comments: Appeared to exhibit right hemiparesis. He had slightly stutter to his voice. His tongue appeared to deviate to the right. Musculoskeletal: no erythema, no cyanosis Psychiatric: mood/affect appropriate, cooperative - Lab 10/07/18 06:54 10/07/18 06:54 Most recent lab results 10/07/18 06:54 Calcium 9.3 Consult Discharge Plan - Plan Referrals: Raoul Gaona DO [Primary Care Provider] -
[2018-10-07] MEDS: carBAMazepine 200 MG TABLET PO SCH ×3 (11:50→20:38)
--- NOTE | 2018-10-07 13:04 | Neurology Progress Note ---
Date of Encounter: 10/07/18 Time of Encounter: 13:01 Assessment and Plan (1) CVA (cerebral vascular accident) Current Visit: No Status: Suspected Acute R sided hemiparesis, slurred speech MRI found left pontine infarct likely due to small vessel disease. Echo found reduced EF of 35% and regional wall motion abnormalities which may be associated with increased risk of embolic stroke but i do not believe this is an embolic event so i would not recommend anticoagulation therapy. patient is already on aspirin and plavix Plan - Continue aspirin and plavix - Consider PT - Continue medical and supportive treatment Qualifiers: CVA mechanism: unspecified Qualified Code(s): I63.9 - Cerebral infarction, unspecified Subjective Principal diagnosis: right sided weakness, CVA Interval history: Patient was seen in dialysis this AM. Overnight patient was found unresponsive and his BG was found to be in the 30's patient was treated appropriately. Patient and nurse stated there has been much improvement since the explosives handler. Patient still speaks slowly but does not seem confused. Objective - Constitutional Vitals: Temp Pulse Resp BP Pulse Ox 99.4 F 90 21 106/42 90 10/07/18 11:00 10/07/18 07:03 10/07/18 11:00 10/07/18 12:45 10/07/18 09:00 General appearance: Present: A&O X 3 - Head Head exam: Present: atraumatic, normocephalic - Neurological Exam Sensorimotor examination: Present: intact Motor examination - right side: 4/5: deltoids, biceps, triceps, wrist flexion, wrist extension, otm consultant, hip flexors, tibialis Anterior, quadriceps, toe extension (EHL), plantarflexion Motor examination - left side: 5/5: deltoids, biceps, triceps, wrist flexion, wrist extension, hip flexors, otm consultant, quadriceps, tibialis Anterior, toe extension (EHL), plantarflexion Sensation intact: Present: intact Posture: Present: other (None) Reflex and gait examination: other (Muscle rigidity noted bilaterally consistent with history of Parkinson disease) Mental Status Examination: Present: awake, alert, oriented to person, oriented to place, oriented to time, follows commands appropriately, answers questions appropriately, no agnosia, no aphasia, no aproxia Cranial nerve examination: Present: PERRL, EOMI, visual pabon intact, corneal reflexes brisk symmetrically, sensory to face intact, mastication intact, no facial asymmetry is present (mild right facial flattening noted), no dysarthria (mild), hearing is intact symmetrically, soft palate elevates bilaterally upon phonation, gag reflex intact, flexes SCM and trapezius muscles symmetrically with full power, tongue protrudes midline (tongue protrude to right slightly) Results - Laboratory Findings CBC and BMP: 10/07/18 06:54 10/07/18 06:54 Abnormal lab findings: Abnormal lab results RBC 2.97 M/mcL (4.19-5.50) L 10/07/18 06:54 Hgb 9.7 g/dL (12.9-16.9) L 10/07/18 06:54 Hct 29.7 % (37.5-50.1) L 10/07/18 06:54 MCV 101.0 fL (83.0-100.0) H 10/06/18 09:57 Potassium 5.8 mEq/L (3.5-5.1) H 10/07/18 06:54 Carbon Dioxide 32 mEq/L (23-29) H 10/05/18 11:10 BUN 80 mg/dL (8-23) H 10/07/18 06:54 7.80 mg/dL (0.70-1.30) H 10/07/18 06:54 Est GFR ( Amer) 8 (> 60) L 10/07/18 06:54 Est GFR (Non-Af Amer) 7 (> 60) L 10/07/18 06:54 Glucose 165 mg/dL (70-105) H 10/07/18 06:54 POC Glucose 169 mg/dL (70-99) H 10/07/18 05:26 320 (280-300) H 10/07/18 06:54 Phosphorus 6.2 mg/dL (2.7-4.5) H 10/05/18 11:10 AST 10 Units/L (13-39) L 10/06/18 09:57 Triglycerides 380 mg/dL (< 150) H 10/05/18 11:10 VLDL Cholesterol, Calc 76 mg/dL (< 31) H 10/05/18 11:10 35 mg/dL (40-59) L 10/05/18 11:10 5.4 (0-4.9) H 10/05/18 11:10 >=300 mg/dL (Neg-Trace) H 10/04/18 09:56 500 mg/dL (Normal) H 10/04/18 09:56 Trace (Negative) H 10/04/18 09:56 3-5 per hpf (0-3) H 10/04/18 09:56 Ur Squamous Epith Cells Many per lpf (None-Few) H 10/04/18 09:56 Hep Bs Antibody < 3.10 mIU/mL (10.00-) L 10/04/18 17:02 Consult Discharge Plan - Plan Referrals: Raoul Gaona DO [Primary Care Provider] -
[2018-10-07] MEDS ORDERED: *HR* Heparin 10,000 UNIT/10 ML VIAL IV PRN (13:13)
--- NOTE | 2018-10-07 13:44 | Electrocardiograph Report ---
[place] [id number] Test Date: 2018-10-06 Pat Name: Alexander Anguiano Department: 112 Room: 2A47 Gender: M Cardiac Care Nurse: : 1945 Requested By: Hemal Vale Order Number: [id number] Reading MD: Raoul Foreman Measurements Intervals [place] Rate: 81 P: 15 [place]: 270 QRS: 4 QRSD: 125 T: 0 QT: 378 QTc: 415 Interpretive Statements SINUS RHYTHM WITH FIRST DEGREE AV BLOCK INFERIOR MYOCARDIAL INFARCTION, PROBABLY OLD Electronically Signed On 10-07-2018 13:42:19 EDT by Raoul Foreman
[2018-10-07] MEDS: Pregabalin 50 MG CAPSULE PO SCH ×2 (14:55→20:37)
[2018-10-07] MEDS: Isosorbide MONOnitrate (24 HR) 30 MG TAB.ER.24H PO SCH (15:11)
[2018-10-07] MEDS: Finasteride 5 MG TABLET PO SCH (15:11)
[2018-10-07] MEDS: Aspirin Enteric Coated 81 MG Tablet PO SCH (15:11)
[2018-10-07] MEDS: Insulin DETEMIR 100 UNIT/ML X5UNITS SQ SCH (20:38)
[2018-10-08] MEDS: Insulin LISPRO 300 UNITS/3 ML VIAL SQ SCH ×4 (01:24→17:22)
[2018-10-08] MEDS: *HR* Heparin 5,000 UNIT/ML VIAL SQ SCH ×2 (06:09→17:28)
[2018-10-08] MEDS: Pregabalin 50 MG CAPSULE PO SCH ×2 (08:00→21:00)
[2018-10-08] MEDS: carBAMazepine 200 MG TABLET PO SCH ×3 (08:00→21:00)
[2018-10-08] MEDS: Rivastigmine Patch 9.5 MG PATCH.TD24 TP SCH (08:00)
[2018-10-08] MEDS: Calcium Acetate 667 MG CAPSULE PO SCH ×3 (08:00→17:22)
[2018-10-08] MEDS: Aspirin Enteric Coated 81 MG Tablet PO SCH (08:00)
[2018-10-08] MEDS: Isosorbide MONOnitrate (24 HR) 30 MG TAB.ER.24H PO SCH (08:01)
[2018-10-08] MEDS: Finasteride 5 MG TABLET PO SCH (08:01)
[2018-10-08 09:07] LABS: Basophils % 0.5 %; Eosinophils # 0.2 K/mcL (0.0-0.6); Eosinophils % 2.6 %; Hematocrit 31.1 % (37.5-50.1); Hemoglobin 9.8 g/dL (12.9-16.9); Immature Granulocytes % 0.5 % (0-4); Lymphocytes # 2.3 K/mcL (0.6-4.6); Lymphocytes % 30.4 %; Mean Corpuscular HGB Conc 31.5 g/dL (31.6-35.5); Mean Corpuscular Hemoglobin 32.5 pg (28.0-33.3); Mean Platelet Volume 10.7 fL (9.4-12.4); Monocytes # 0.7 K/mcL (0.0-1.3); Monocytes % 8.8 %; Neutrophils # 4.3 K/mcL (1.6-8.9); Platelet Count 233 K/mcL (140-400); Red Blood Count 3.02 M/mcL (4.19-5.50); Red Cell Distribution Width 13.2 % (11.5-14.5); Segmented Neutrophils % 57.2 %; White Blood Count 7.6 K/mcL (4.3-11.1)
[2018-10-08 09:26] LABS: Calcium 9.2 mg/dL (8.6-10.3); Potassium 5.2 mEq/L (3.5-5.1)
[2018-10-08] MEDS ORDERED: E-Z-HD (BARIUM SULF) SUSPENSION PO ONE (10:47)
[2018-10-08] MEDS ORDERED: E-Z-PAQUE (BARIUM SULF) SUSP 1 BOTTLE PO ONE (10:47)
--- NOTE | 2018-10-08 10:47 | Nephrology Progress Note ---
Date of Encounter: 10/08/18 Time of Encounter: 07:59 - Assessment and Plan (1) ESRD on dialysis Current Visit: Yes Status: Chronic Plan for next HD tomorrow Hyperkalemia trending better after HD as would be expected. There was medical necessity to see him today (Sunday), and I reviewed his labs and determined that he does not need extra HD today. CVA as per primary/Neuro. I recommend strict I's and O's, daily weights, renal dosing, renal diet, and avoidance of nephrotoxins if able. Thank you (2) Intra-dialytic hypotension Current Visit: Yes Status: Chronic Chronic: with each dialysis, I will continue his home Midodrine to help prevent intra-dialytic hypotension. (3) Acute CVA (cerebrovascular accident) Current Visit: Yes Status: Acute As per primary/neurology. With his dialysis orders, I ordered slower and safer dialysate and blood flow rates, as well as set a higher threshold for low blood pressure cut offs during dialysis, which will help be more gentle given that he has had a recent stroke. (4) Weakness Current Visit: Yes Status: Acute (5) Anemia in chronic kidney disease Current Visit: Yes Status: Chronic The goal hemoglobin in dialysis patients is 10-11. He may need IV iron and/or EPO while admitted, and I will monitor. Qualifiers: Chronic kidney disease stage: on chronic dialysis Qualified Code(s): N18.6 - End stage renal disease; D63.1 - Anemia in chronic kidney disease; Z99.2 - Dependence on renal dialysis (6) Proteinuria Current Visit: Yes Status: Chronic Qualifiers: Proteinuria type: persistent Qualified Code(s): R80.1 - Persistent proteinuria, unspecified (7) Hyperkalemia Current Visit: Yes Status: Acute See above. Subjective Principal diagnosis: right sided weakness, CVA Interval history: The patient was seen and examined, and he was again by himself in the room without family present. He had garbled speech and thus was not able to provide any subjective history. I also discussed his status with the floor RN. Objective - Vital Signs Vital signs: Vital Signs Temp Pulse Resp BP Pulse Ox 10/08/18 07:39 98.6 F 76 19 117/69 92 10/08/18 04:35 100.1 F H 81 19 126/72 90 10/08/18 01:20 99.7 F H 84 19 125/67 91 10/07/18 20:56 98.1 F 94 20 95/53 90 10/07/18 20:37 93 10/07/18 15:56 97.9 F 86 19 110/63 93 10/07/18 14:30 98.6 F 17 150/38 10/07/18 14:00 135/57 10/07/18 13:45 135/42 10/07/18 13:30 127/55 10/07/18 13:15 108/71 10/07/18 13:00 133/61 10/07/18 12:45 106/42 10/07/18 12:30 103/56 10/07/18 12:15 136/42 10/07/18 12:00 124/44 10/07/18 11:45 125/49 10/07/18 11:30 144/67 10/07/18 11:15 135/63 10/07/18 11:00 99.4 F 21 148/76 Intake and Output 10/07/18 10/08/18 10/08/18 23:59 07:59 15:59 Intake Total 0 / 500 90 / 110 20 / 110 Output Total 0 / 0 Balance 0 / -1000 90 / 110 20 / 110 Intake: Oral 0 / 0 90 / 110 20 / 110 Output: Urine 0 / 0 Other: Meal Dinner Breakfast Percent of Meal Consumed 0% 0% # Urine Diapers 1 1 1 Weight 98.2 kg Blood Glucose* 237 117 Patient Weight 10/08/18 23:59 Weight 98.2 kg - General Appearance Exam: General appearance: thin appearing, chronically ill, fatigue, frail EENT: ATNC, mucous membranes dry Additional Comments: right sided facial droop Neck: no JVD, supple Respiratory: clear (but diminished breath sounds in the bases) Cardiology: no edema, normal S1, normal S2 - Dialysis Access Dialysis Vascular Access: Arteriovenous Fistula (right mid arm AVF with minimal ecchymosis/infiltration and soft thrill) Additional Comments: AV Access: right sided Permacath without any exit site erythema and the cuff was not exposed. Gastrointestinal: normoactive bowel sounds, no tenderness, no guarding Integumentary: no rash, warm and dry Neurologic: facial droop (right sided), and much more slurred speech today Additional Comments: Appeared to exhibit right hemiparesis. He had slightly stutter to his voice. His tongue appeared to deviate to the right. Musculoskeletal: no erythema, no cyanosis Psychiatric: mood/affect appropriate, cooperative - Lab 10/09/18 05:59 10/09/18 05:59 Most recent lab results 10/08/18 08:22 Calcium 9.2 Magnesium 2.0 Consult Discharge Plan - Plan Referrals: Raoul Gaona DO [Primary Care Provider] -
--- NOTE | 2018-10-08 14:07 | Internal Med Progress Note ---
Hospitalist Progress Note - Encounter Date of Encounter: 10/08/18 Time of Encounter: 14:07 - Subjective Interval History: It was seen and examined at bedside currently patient is alert and oriented to name and following simple commands. Discussed treatment plan with the patient's family is at bedside. Patient require rehabilitation awaiting placement-i nsurance authorization. Seen by speech therapy recommending. Pureed Textures and nectar thickened liquids-concerned for possible aspiration we will check chest x-ray - Exam Vitals: Temp Pulse Resp BP Pulse Ox 99.0 F 86 18 126/64 90 10/08/18 11:25 10/08/18 11:25 10/08/18 11:25 10/08/18 11:25 10/08/18 11:25 Exam: GEN: NAD CVS: RRR. S1, S2, No m/r/g RESP: Coarse rhonchi ABD: Soft, NT, ND, +BS EXT: No edema. 2+ DP. No rashes NEURO: Cranial 2 through 12 are intact. Patient has strength is about 2 out of 5 in both right upper right lower extremity. Other extremities are 5 out of 5. No sensory deficits.. - Assessment and Plan (1) Diabetes mellitus Current Visit: Yes Status: Chronic Assessment and Plan: Patient has had poor oral intake we will decrease long acting insulin by half and continue with sliding scale insulin monitor closely and adjust as needed (2) DVT prophylaxis Current Visit: No Status: Acute Assessment and Plan: Heparin subcutaneous (3) CAD (coronary artery disease) Current Visit: No Status: Chronic Assessment and Plan: Continue meds (4) CHF (congestive heart failure) Current Visit: Yes Status: Chronic Assessment and Plan: Continue home meds (5) Hyperkalemia Current Visit: No Status: Acute Assessment and Plan: Seen by nephrology recommending renal diet low potassium we will continue to monitor (6) ESRD on dialysis Current Visit: Yes Status: Chronic Assessment and Plan: End-stage renal disease on hemodialysis 3 times a week Sunday. He will have dialysis in the a.m. Monitor strict I's and O's daily weights renal dosing renal diet avoid nephrotoxins Nephrology consult and appreciate recommendations (7) Acute CVA (cerebrovascular accident) Current Visit: Yes Status: Acute Assessment and Plan: Had a sudden change in mental status yesterday and CT head was negative compared to previous. He is still not back to himself today compared to when I saw him 2 days ago. he was back to himself yesterday after he returned from CT head. I wonder if he had another TIA. Will get an MRI brain repeated. Patient is already on Plavix. Aspirin added. Continue statin. Neurology is following. Speech to see. May need MBS. Echo showed EF of 35%, No PFO. Previous echo was 40% in 2017. Carotids negative 10/08 MRI of brain demonstrated left pontine infarct-seen by neurology-patient has been experiencing some intermittent confusion as well as mild right-sided weakness. He has been experiencing low blood glucose. We will decrease insulin he has had poor oral intake. Continue with statin and aspirin Plavix PT recommending rehabilitation Speech therapy evaluated. Pureed Diet with nectar thickened liquids Aspiration precautions-high risk for possible aspiration patient does have some scattered rhonchi Sats stable at this time no white count or fever-we will check chest x-ray and monitor CBC (8) HTN (hypertension) Current Visit: Yes Status: Acute Assessment and Plan: Continue home meds (9) Goals of care, counseling/discussion Current Visit: Yes Status: Acute Assessment and Plan: Will need placement. catering convention services manager has been consulted awaiting insurance authorization (10) Chronic systolic (congestive) heart failure Current Visit: Yes Status: Acute Assessment and Plan: c/w home meds - Time Spent with Patient Total time spent is greater than 50% in coordination of care (as documented) at patient's floor/unit and/or counseling patient: Internal Medicine: Result - Labs CBC & Chem 7: 10/08/18 08:22 10/08/18 08:22 Labs: Short CBC 10/08/18 Range/Units 08:22 WBC 7.6 (4.3-11.1) K/mcL Hgb 9.8 L (12.9-16.9) g/dL Hct 31.1 L (37.5-50.1) % Plt Count 233 (140-400) K/mcL Neutrophils # 4.3 (1.6-8.9) K/mcL BMP 10/08/18 08:22 Sodium 137 Potassium 5.2 H Chloride 97 L Carbon Dioxide 29 BUN 53 H Creatinine 6.36 H Glucose 95 Calcium 9.2 - ABG Interpretation ABG results: PT/INR, D-dimer PT 11.8 Seconds (9.4-12.1) 10/06/18 09:57 - Impressions Impressions Videofluoroscopic Swallow 10/08/18 00:01 IMPRESSION: Swallow study not performed due to patient's inability to cooperate with exam. D/ / Christiano Lucia MD / Christiano Lucia MD Interpreting Provider: Christiano Lucia MD Consult Discharge Plan - Plan Referrals: Raoul Gaona DO [Primary Care Provider] - (1) Diabetes mellitus Qualifiers: Diabetes mellitus type: type 2 Diabetes mellitus terminal carman insulin use: with alf use Diabetes mellitus complication status: with kidney complications Diabetes mellitus complication detail: with chronic kidney disease Chronic kidney disease stage: unspecified stage Qualified Code(s): E11.22 - Type 2 diabetes mellitus with diabetic chronic kidney disease; Z79.4 - bed bug exterminator (current) use of insulin (3) CAD (coronary artery disease) Qualifiers: Coronary Disease-Associated Artery/Lesion type: bypass graft [place] vs. transplanted heart: [place] heart Associated angina: without angina Qualified Code(s): I25.810 - Atherosclerosis of coronary artery bypass graft(s) without angina pectoris (4) CHF (congestive heart failure) Qualifiers: Heart failure type: unspecified Heart failure chronicity: chronic Qualified Code(s): I50.9 - Heart failure, unspecified (8) HTN (hypertension) Qualifiers: Hypertension type: essential hypertension Qualified Code(s): I10 - Essential (primary) hypertension
[2018-10-08] MEDS ORDERED: Acetaminophen 325 MG TABLET PO PRN (17:44)
[2018-10-08] MEDS ORDERED: *HR* HYDROcodone/Acet 5/325 mg TABLET PO PRN (17:44)
[2018-10-08] MEDS: Insulin DETEMIR 100 UNIT/ML X5UNITS SQ SCH (21:02)
[2018-10-09] MEDS: *HR* Dextrose 50 % in Water (Syg) 50 ML SYRINGE IVP PRN (04:44)
[2018-10-09] MEDS: Insulin LISPRO 300 UNITS/3 ML VIAL SQ SCH ×3 (06:05→16:48)
[2018-10-09] MEDS: *HR* Heparin 5,000 UNIT/ML VIAL SQ SCH ×2 (06:12→16:48)
[2018-10-09 06:26] LABS: Basophils % 0.3 %; Eosinophils # 0.1 K/mcL (0.0-0.6); Eosinophils % 1.2 %; Hematocrit 31.9 % (37.5-50.1); Hemoglobin 10.3 g/dL (12.9-16.9); Immature Granulocytes % 0.5 % (0-4); Lymphocytes # 1.4 K/mcL (0.6-4.6); Lymphocytes % 16.4 %; Mean Corpuscular HGB Conc 32.3 g/dL (31.6-35.5); Mean Corpuscular Hemoglobin 32.2 pg (28.0-33.3); Mean Corpuscular Volume 99.7 fL (83.0-100.0); Mean Platelet Volume 10.3 fL (9.4-12.4); Monocytes # 0.8 K/mcL (0.0-1.3); Monocytes % 8.8 %; Neutrophils # 6.3 K/mcL (1.6-8.9); Platelet Count 261 K/mcL (140-400); Red Cell Distribution Width 13.2 % (11.5-14.5); Segmented Neutrophils % 72.8 %; White Blood Count 8.7 K/mcL (4.3-11.1)
[2018-10-09 06:45] LABS: Calcium 9.4 mg/dL (8.6-10.3); Potassium 5.7 mEq/L (3.5-5.1)
[2018-10-09] MEDS: Aspirin Enteric Coated 81 MG Tablet PO SCH (07:41)
[2018-10-09] MEDS: Calcium Acetate 667 MG CAPSULE PO SCH ×3 (07:41→14:29)
[2018-10-09] MEDS: Pregabalin 50 MG CAPSULE PO SCH ×2 (07:42→21:45)
[2018-10-09] MEDS: Finasteride 5 MG TABLET PO SCH (07:42)
[2018-10-09] MEDS: Isosorbide MONOnitrate (24 HR) 30 MG TAB.ER.24H PO SCH (07:42)
[2018-10-09] MEDS: carBAMazepine 200 MG TABLET PO SCH ×3 (07:43→21:45)
[2018-10-09] MEDS: Rivastigmine Patch 9.5 MG PATCH.TD24 TP SCH (07:49)
[2018-10-09] MEDS ORDERED: *HR* Heparin 10,000 UNIT/10 ML VIAL IV PRN (08:32)
--- NOTE | 2018-10-09 08:47 | Internal Med Progress Note ---
Hospitalist Progress Note - Encounter Date of Encounter: 10/09/18 Time of Encounter: 10:00 - Subjective Interval History: Has worsening lethargy and confusion this am - Exam Vitals: Temp Pulse Resp BP Pulse Ox 100.3 F H 86 18 128/78 93 10/09/18 07:10 10/09/18 07:10 10/09/18 07:10 10/09/18 07:10 10/09/18 07:10 Exam: GEN: NAD CVS: RRR. S1, S2, No m/r/g RESP: Coarse rhonchi ABD: Soft, NT, ND, +BS EXT: No edema. 2+ DP. No rashes NEURO: Cranial 2 through 12 are intact. Patient has strength is about 2 out of 5 in both right upper right lower extremity. Other extremities are 5 out of 5. No sensory deficits.. - Assessment and Plan (1) Acute metabolic encephalopathy Current Visit: Yes Status: Resolved Assessment and Plan: Pt has lethargy and confusion query CVA vs bacterial meningitis vs pneumonia Brain MRI shows stable acute/ early subacute louie infacrt. ABG unremarkable Obtain blood cultures, start empriically on vanc, ceftriaxone, ampicillin and dexamethasone Neuro recs appreciated. LP cannot be performed per IR as patient took plavix yesterday (2) Acute CVA (cerebrovascular accident) Current Visit: Yes Status: Acute Assessment and Plan: Had a sudden change in mental status yesterday and CT head was negative compared to previous. He is still not back to himself today compared to when I saw him 2 days ago. he was back to himself yesterday after he returned from CT head. I wonder if he had another TIA. Will get an MRI brain repeated. Patient is already on Plavix. Aspirin added. Continue statin. Neurology is following. Speech to see. May need MBS. Echo showed EF of 35%, No PFO. Previous echo was 40% in 2017. Carotids negative 10/08 MRI of brain demonstrated left pontine infarct-seen by neurology-patient has been experiencing some intermittent confusion as well as mild right-sided weakness. He has been experiencing low blood glucose. We will decrease insulin he has had poor oral intake. Continue with statin and aspirin Plavix PT recommending rehabilitation Speech therapy evaluated. Pureed Diet with nectar thickened liquids Aspiration precautions-high risk for possible aspiration patient does have some scattered rhonchi Sats stable at this time no white count or fever-we will check chest x-ray and monitor CBC (3) Diabetes mellitus Current Visit: Yes Status: Chronic Assessment and Plan: Patient has had poor oral intake we will decrease long acting insulin by half and continue with sliding scale insulin monitor closely and adjust as needed (4) CAD (coronary artery disease) Current Visit: Yes Status: Chronic Assessment and Plan: Continue meds (5) CHF (congestive heart failure) Current Visit: Yes Status: Chronic Assessment and Plan: Continue home meds (6) Hyperkalemia Current Visit: Yes Status: Acute Assessment and Plan: Seen by nephrology recommending renal diet low potassium we will continue to monitor (7) ESRD on dialysis Current Visit: Yes Status: Chronic Assessment and Plan: End-stage renal disease on hemodialysis 3 times a week Sunday. He will have dialysis in the a.m. Monitor strict I's and O's daily weights renal dosing renal diet avoid nephrotoxins Nephrology consult and appreciate recommendations (8) HTN (hypertension) Current Visit: Yes Status: Acute Assessment and Plan: Continue home meds (9) Goals of care, counseling/discussion Current Visit: Yes Status: Acute Assessment and Plan: Will need placement. supervisor ship maintenance services has been consulted awaiting insurance authorization (10) Chronic systolic (congestive) heart failure Current Visit: Yes Status: Acute Assessment and Plan: c/w home meds (11) DVT prophylaxis Current Visit: No Status: Acute Assessment and Plan: Heparin subcutaneous - Time Spent with Patient Total time spent is greater than 50% in coordination of care (as documented) at patient's floor/unit and/or counseling patient: Internal Medicine: Result - Labs CBC & Chem 7: 10/09/18 05:59 10/09/18 05:59 Labs: Short CBC 10/08/18 10/09/18 Range/Units 08:22 05:59 WBC 7.6 8.7 (4.3-11.1) K/mcL Hgb 9.8 L 10.3 L (12.9-16.9) g/dL Hct 31.1 L 31.9 L (37.5-50.1) % Plt Count 233 261 (140-400) K/mcL Neutrophils # 4.3 6.3 (1.6-8.9) K/mcL BMP 10/08/18 10/09/18 08:22 05:59 Sodium 137 139 Potassium 5.2 H 5.7 H Chloride 97 L 95 L Carbon Dioxide 29 28 BUN 53 H 69 H Creatinine 6.36 H 8.58 H Glucose 95 103 Calcium 9.2 9.4 - ABG Interpretation ABG results: PT/INR, D-dimer PT 11.8 Seconds (9.4-12.1) 10/06/18 09:57 - Impressions Impressions Videofluoroscopic Swallow 10/08/18 00:01 IMPRESSION: Swallow study not performed due to patient's inability to cooperate with exam. D/ / Christiano Lucia MD / Christiano Lucia MD Interpreting Provider: Christiano Lucia MD Chest X-Ray 10/08/18 19:28 IMPRESSION: Suboptimal inspiration with bilateral atelectasis within the mid lung. No definite pneumonia. D/ / Aamir Walton MD / Aamir Walton MD Interpreting Provider: Aamir Walton MD Consult Discharge Plan - Plan Referrals: Raoul Gaona DO [Primary Care Provider] - (3) Diabetes mellitus Qualifiers: Diabetes mellitus type: type 2 Diabetes mellitus custodial insulin use: with custodial use Diabetes mellitus complication status: with kidney complications Diabetes mellitus complication detail: with chronic kidney disease Chronic kidney disease stage: unspecified stage Qualified Code(s): E11.22 - Type 2 diabetes mellitus with diabetic chronic kidney disease; Z79.4 - halfway (current) use of insulin (4) CAD (coronary artery disease) Qualifiers: Coronary Disease-Associated Artery/Lesion type: bypass graft [place] vs. transplanted heart: [place] heart Associated angina: without angina Qualified Code(s): I25.810 - Atherosclerosis of coronary artery bypass graft(s) without angina pectoris (5) CHF (congestive heart failure) Qualifiers: Heart failure type: unspecified Heart failure chronicity: chronic Qualified Code(s): I50.9 - Heart failure, unspecified (8) HTN (hypertension) Qualifiers: Hypertension type: essential hypertension Qualified Code(s): I10 - Essential (primary) hypertension
[2018-10-09] MEDS ORDERED: Insulin Human Regular 5 UNIT, Sodium Bicarbonate 50 MEQ in D10% in Water 500 ML IVC ONE (08:52)
--- NOTE | 2018-10-09 10:46 | Neurology Progress Note ---
Date of Encounter: 10/09/18 Time of Encounter: 10:43 Assessment and Plan (1) Acute CVA (cerebrovascular accident) Current Visit: Yes Status: Acute Briefly, patient developed acute onset of left-sided facial droop, right-sided hemiparesis and slurred speech. Subsequently was found to have a left pontine infarct most likely secondary to small vessel etiology. Neurology has been asked to reevaluate today as the patient is experiencing altered mental status and lethargy. There are no new obvious neurological deficits on exam and I do not suspect that there has been an evolution of CVA. He has had recent repeat MRI imaging on 10/07/18 which did not identify any evolution of CVA or acute infarcts. I feel that most likely at this juncture his condition is caused by medical encephalopathy. He developed fevers overnight and has worsening renal function. Recommend treating underlying medical conditions and continue with medical and supportive care. C/W DAPT and statin therapy. Neurology will follow peripherally. Subjective Principal diagnosis: right sided weakness, CVA Interval history: Neurology has been asked to reevaluate for concerns for evolution of stroke with altered mental state and lethargy. In brief this is a 73-year-old male who p/w confusion, & right-sided hemiparesis, subsequently he had an MRI which identified an acute left pontine infarct. While being seen at the bedside in follow-up today the patient was found to be lethargic and arousable to tactile stimulus. He is aware of the fact that he has at [facility] in [place] but otherwise confused. There are no new obvious focal neurological deficits on exam today. Of note, he complains of neck pain and stiffness which is new since admission. Objective - Constitutional Vitals: Temp Pulse Resp BP Pulse Ox 100.3 F H 86 18 128/78 93 10/09/18 07:10 10/09/18 07:10 10/09/18 07:10 10/09/18 07:10 10/09/18 07:10 General appearance: Present: A&O X 3 Exam: Examination: Neurological exam is complicated by altered mental state General Examination: *CONSTITUTIONAL: Alert to self and place, no acute distress. He is le thargic today on exam but arousable to tactile stimulus *GENERAL APPEARANCE OF PATIENT generally ill-appearing *EYES: pupils equal, round, reactive to light and accommodation, conjunctiva clear *CARDIOVASCULAR no peripheral edema, distal temperature normal, dorsalis pedis pulses normal. See vitals Musculoskeletal: *GAIT AND STATION deferred *ASSESSMENT OF MUSCLE STRENGTH IN THE UPPER AND LOWER EXTREMITIES gross right-sided hemiparesis, left deltoid, triceps, biceps, licensed optical dispenser strength, hip flexor, anterior tibialis and dorsiflexion of left foot 4/5 *MUSCLE TONE IN THE UPPER AND LOWER EXTREMITIES normal. No abnormal movements, fasciculations or atrophy identified. Neurological: *ORIENTATION to person, and place but disoriented otherwise *ATTENTION AND CONCENTRATION patient is lethargic and displaying poor concentration requiring redirection during the exam however, with redirection he will follow commands *LANGUAGE FUNCTION speech slurring persists S/P acute CVA. *FUND OF KNOWLEDGE unaware of current events, past history, vocabulary and altered mental state *MENTAL attention span and concentration abnormal as he is displaying poor concentration *CN II optic fundi were normal, no papilledema noted. *CN III,IV, PERRLA extraocular eye movements were full, no nystagmus and no ptosis noted. *CN V left facial droop present on exam with hyper-sialorrhea *CN VII abnormal facial movement with left asymmetry of the lower face and mouth *CN VIII shows no significant hearing loss on exam *CN XI He is displaying neck stiffness and is unable to turn his head to the right which is new when compared to previous exam *CN XII continues to have right upper tongue deviation *SENSORY EXAMINATION sensation remains intact *REFLEXES: deep tendon reflexes were normal and symmetrical , grade 1/4 diffusely, no pathological reflexes were noted. *CEREBELLAR TESTING unable to complete [id number] on right side due to right hemiparesis, did not follow commands when attempting left side [id number] exam *PAIN LEVEL neck pain and stiffness; patient unable to quantify - Neurological Exam Sensorimotor examination: Present: intact Motor examination - left side: 4/5: deltoids, quadriceps, tibialis Anterior, 5/5: biceps, triceps, wrist flexion, wrist extension, hip flexors, licensed optical dispenser, toe extension (EHL), plantarflexion Sensation intact: Present: intact Posture: Present: other (None) Reflex and gait examination: other (Muscle rigidity noted bilaterally consistent with history of Parkinson disease) Mental Status Examination: Present: awake, alert, oriented to person, oriented to place, oriented to time, follows commands appropriately, answers questions appropriately, no agnosia, no aphasia, no aproxia Cranial nerve examination: Present: PERRL, EOMI, visual pabon intact, corneal reflexes brisk symmetrically, sensory to face intact, mastication intact, no facial asymmetry is present (mild right facial flattening noted), no dysarthria (mild), hearing is intact symmetrically, soft palate elevates bilaterally upon phonation, gag reflex intact, flexes SCM and trapezius muscles symmetrically with full power, tongue protrudes midline (tongue protrude to right slightly) Results - Laboratory Findings CBC and BMP: 10/09/18 05:59 10/09/18 05:59 Abnormal lab findings: Abnormal lab results RBC 3.20 M/mcL (4.19-5.50) L 10/09/18 05:59 Hgb 10.3 g/dL (12.9-16.9) L 10/09/18 05:59 Hct 31.9 % (37.5-50.1) L 10/09/18 05:59 MCV 103.0 fL (83.0-100.0) H 10/08/18 08:22 MCHC 31.5 g/dL (31.6-35.5) L 10/08/18 08:22 Potassium 5.7 mEq/L (3.5-5.1) H 10/09/18 05:59 Chloride 95 mEq/L (98-107) L 10/09/18 05:59 Carbon Dioxide 32 mEq/L (23-29) H 10/05/18 11:10 BUN 69 mg/dL (8-23) H 10/09/18 05:59 8.58 mg/dL (0.70-1.30) H 10/09/18 05:59 Est GFR ( Amer) 7 (> 60) L 10/09/18 05:59 Est GFR (Non-Af Amer) 6 (> 60) L 10/09/18 05:59 Glucose 165 mg/dL (70-105) H 10/07/18 06:54 POC Glucose 115 mg/dL (70-99) H 10/09/18 04:44 308 (280-300) H 10/09/18 05:59 Phosphorus 6.2 mg/dL (2.7-4.5) H 10/05/18 11:10 AST 10 Units/L (13-39) L 10/06/18 09:57 Triglycerides 380 mg/dL (< 150) H 10/05/18 11:10 VLDL Cholesterol, Calc 76 mg/dL (< 31) H 10/05/18 11:10 35 mg/dL (40-59) L 10/05/18 11:10 5.4 (0-4.9) H 10/05/18 11:10 >=300 mg/dL (Neg-Trace) H 10/04/18 09:56 500 mg/dL (Normal) H 10/04/18 09:56 Trace (Negative) H 10/04/18 09:56 3-5 per hpf (0-3) H 10/04/18 09:56 Ur Squamous Epith Cells Many per lpf (None-Few) H 10/04/18 09:56 Hep Bs Antibody < 3.10 mIU/mL (10.00-) L 10/04/18 17:02 Consult Discharge Plan - Plan Referrals: Raoul Gaona DO [Primary Care Provider] -
[2018-10-09 11:04] LABS: ABG Base Excess 8 mEq/L (-2 to 3); ABG HCO3 34 mEq/L (21-27); ABG Oxygen Saturation 94 % (95-98); ABG PCO2 53 mmHg (35-45); ABG PH 7.42 pH Units (7.32-7.45); ABG PO2 70 mmHg (85-104); ABG TCO2 36 mEq/L (20-26)
--- NOTE | 2018-10-09 12:23 | Nephrology Progress Note ---
Date of Encounter: 10/09/18 Time of Encounter: 09:35 - Assessment and Plan (1) ESRD on dialysis Current Visit: Yes Status: Chronic ESRD on thrice weekly hemodialysis and due for dialysis today (Sunday), which I have ordered in advance via standing orders. However, due to his worsening neurologic status, I am concerned about worsening stroke and have therefore postponed today's dialysis orders. Discussed with the hospitalist and Neurology PA. If he stabilizes then I would recommend resuming intermittent HD. Hyperkalemia is ongoing: rec a low K+/renal diet. He should have temporizing measures administered as discussed with the hospitalist. I recommend strict I's and O's, daily weights, renal dosing, renal diet, and avoidance of nephrotoxins if able. Thank you (2) Intra-dialytic hypotension Current Visit: Yes Status: Chronic Chronic: with each dialysis, I will continue his home Midodrine to help prevent intra-dialytic hypotension. (3) Acute CVA (cerebrovascular accident) Current Visit: Yes Status: Acute As per primary/neurology. Appreciate Neuro's recs. (4) Weakness Current Visit: Yes Status: Acute (5) Anemia in chronic kidney disease Current Visit: Yes Status: Chronic The goal hemoglobin in dialysis patients is 10-11. He may need IV iron and/or EPO while admitted, and I will monitor. Qualifiers: Chronic kidney disease stage: on chronic dialysis Qualified Code(s): N18.6 - End stage renal disease; D63.1 - Anemia in chronic kidney disease; Z99.2 - Dependence on renal dialysis (6) Proteinuria Current Visit: Yes Status: Chronic Qualifiers: Proteinuria type: persistent Qualified Code(s): R80.1 - Persistent proteinuria, unspecified (7) Hyperkalemia Current Visit: Yes Status: Acute See above. Subjective Principal diagnosis: right sided weakness, CVA Interval history: The patient was seen and examined earlier today and he was unable to even awaken to verbal or tactile stimuli. I discussed his stated with the hospitalist, floor RN and neuro PA Objective - Vital Signs Vital signs: Vital Signs Temp Pulse Resp BP Pulse Ox 10/09/18 07:10 100.3 F H 86 18 128/78 93 10/09/18 04:34 99.3 F 91 18 165/81 94 10/09/18 01:07 99.2 F 83 16 121/68 93 06/04/19 20:51 99.9 F H 96 16 111/69 89 10/08/18 16:05 99.6 F 85 19 127/68 90 Intake and Output 10/08/18 10/09/18 10/09/18 23:59 07:59 15:59 Intake Total 0 / 120 0 / 0 0 / 0 Output Total 0 / 0 0 / 0 Balance 0 / 120 0 / 0 0 / 0 Intake: Oral 0 / 120 0 / 0 0 / 0 Output: Urine 0 / 0 0 / 0 Other: Meal Dinner Percent of Meal Consumed 0% # Urine Diapers 1 Blood Glucose* 88 112 171 - General Appearance Exam: General appearance: thin appearing, chronically ill, fatigue, frail EENT: ATNC, mucous membranes dry and drooling Additional Comments: right sided facial droop Neck: no JVD, supple Respiratory: clear (but diminished breath sounds in the bases) Cardiology: no edema, normal S1, normal S2 - Dialysis Access Dialysis Vascular Access: Arteriovenous Fistula (right mid arm AVF with minimal ecchymosis and + soft thrill) Additional Comments: AV Access: right sided Permacath without any exit site erythema and the cuff was not exposed. Gastrointestinal: normoactive bowel sounds, no tenderness, no guarding Integumentary: no rash, warm and dry Neurologic: obtunded Additional Comments: Appeared to exhibit right hemiparesis. He had slightly stutter to his voice. His tongue appeared to deviate to the right. Musculoskeletal: no erythema, no cyanosis Psychiatric: mood/affect appropriate, cooperative - Lab 10/09/18 05:59 10/09/18 05:59 Most recent lab results 10/09/18 10/09/18 05:59 11:01 ABG pH 7.42 ABG pCO2 53 H ABG pO2 70 L ABG HCO3 34 H ABG O2 Saturation 94 L Calcium 9.4 Consult Discharge Plan - Plan Referrals: Raoul Gaona DO [Primary Care Provider] -
[2018-10-09] MEDS ORDERED: Acetaminophen IV 1,000 MG/100 ML INFUS..BTL IVPB ONE (13:34)
[2018-10-09] MEDS ORDERED: Acetaminophen 650 MG RECTAL SUPP RC PRN (13:35)
[2018-10-09] MEDS ORDERED: cefTRIAXone 2,000 MG in Water for inj. (sterile) 20 ML 20 ML IVP ONE (15:00)
[2018-10-09] MEDS ORDERED: Ampicillin 2 GM in 0.9 % Sodium Chloride Mini Bag 100 ML IVPB ONE ×2 (15:00→15:04)
[2018-10-09] MEDS ORDERED: cefTRIAXone 1,000 MG in Water for inj. (sterile) 20 ML 10 ML IVP SCH (15:00)
[2018-10-09] MEDS ORDERED: Dexamethasone 10 MG/ML VIAL IVP SCH (15:00)
[2018-10-09] MEDS ORDERED: Vancomycin 1 EACH in 0.9 % Sodium Chloride 250 ML IVPB PRN (15:00)
[2018-10-09] MEDS: Dexamethasone 10 MG/ML VIAL IVP SCH ×2 (16:47→17:22)
[2018-10-09] MEDS ORDERED: Ampicillin 2 GM in 0.9 % Sodium Chloride Mini Bag 100 ML IVPB SCH (18:00)
[2018-10-09] MEDS: Insulin DETEMIR 100 UNIT/ML X5UNITS SQ SCH (21:46)
[2018-10-10] MEDS: Dexamethasone 10 MG/ML VIAL IVP SCH ×4 (00:57→17:13)
[2018-10-10] MEDS: Insulin LISPRO 300 UNITS/3 ML VIAL SQ SCH ×4 (00:58→17:28)
[2018-10-10 04:03] LABS: Basophils % 0.1 %; Immature Granulocytes % 0.9 % (0-4); Lymphocytes # 0.8 K/mcL (0.6-4.6); Lymphocytes % 12.1 %; Mean Corpuscular HGB Conc 33.3 g/dL (31.6-35.5); Mean Corpuscular Hemoglobin 32.4 pg (28.0-33.3); Mean Corpuscular Volume 97.1 fL (83.0-100.0); Mean Platelet Volume 10.3 fL (9.4-12.4); Monocytes # 0.2 K/mcL (0.0-1.3); Monocytes % 2.2 %; Neutrophils # 5.7 K/mcL (1.6-8.9); Platelet Count 264 K/mcL (140-400); Red Blood Count 3.09 M/mcL (4.19-5.50); Red Cell Distribution Width 12.9 % (11.5-14.5); Segmented Neutrophils % 84.7 %; White Blood Count 6.7 K/mcL (4.3-11.1)
[2018-10-10 04:17] LABS: Calcium 8.9 mg/dL (8.6-10.3); Potassium 5.8 mEq/L (3.5-5.1)
[2018-10-10] MEDS: *HR* Heparin 5,000 UNIT/ML VIAL SQ SCH ×2 (06:30→17:36)
[2018-10-10] MEDS: cefTRIAXone 2,000 MG in Water for inj. (sterile) 20 ML 20 ML IVP SCH ×2 (06:31→17:12)
[2018-10-10] MEDS ORDERED: 0.9 % Sodium Chloride 250 ML IVC PRN (07:08)
[2018-10-10] MEDS: Calcium Acetate 667 MG CAPSULE PO SCH ×3 (08:00→17:27)
[2018-10-10] MEDS: Isosorbide MONOnitrate (24 HR) 30 MG TAB.ER.24H PO SCH (08:00)
[2018-10-10] MEDS ORDERED: Insulin Human Regular 5 UNIT, Sodium Bicarbonate 50 MEQ in D10% in Water 500 ML IVC ONE (08:20)
[2018-10-10] MEDS ORDERED: E-Z-PAQUE (BARIUM SULF) SUSP 1 BOTTLE PO ONE (08:50)
[2018-10-10] MEDS ORDERED: E-Z-HD (BARIUM SULF) SUSPENSION PO ONE (08:50)
[2018-10-10] MEDS: Rivastigmine Patch 9.5 MG PATCH.TD24 TP SCH (09:35)
[2018-10-10] MEDS: Pregabalin 50 MG CAPSULE PO SCH ×2 (09:37→20:53)
[2018-10-10] MEDS: Aspirin Enteric Coated 81 MG Tablet PO SCH (09:37)
[2018-10-10] MEDS: Finasteride 5 MG TABLET PO SCH (09:37)
[2018-10-10] MEDS: carBAMazepine 200 MG TABLET PO SCH ×3 (09:38→20:53)
[2018-10-10] MEDS ORDERED: *HR* Heparin 10,000 UNIT/10 ML VIAL IV PRN (10:26)
--- NOTE | 2018-10-10 11:34 | Nephrology Progress Note ---
Date of Encounter: 10/10/18 Time of Encounter: 08:15 - Assessment and Plan (1) ESRD on dialysis Current Visit: Yes Status: Chronic ESRD on thrice weekly hemodialysis every Sunday/Sunday/Sunday. Due to his altered mental status and concern yesterday for potential worsening stroke, dialysis was postponed. I appreciate neurology's recommendations, and it appears the patient had a CT of the head, with a stable pontine stroke. The patient will need resumption of dialysis today (), and I have reviewed his labs, vital signs, medication list, progress notes and imaging, which required a high degree of evaluation and management plus medical decision-making to compose his dialysis. 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 Hyperkalemia is ongoing: rec a low K+/renal diet. HD today. I recommend strict I's and O's, daily weights, renal dosing, renal diet, and avoidance of nephrotoxins if able. My colleague Dr. Salvador will be on-call starting tomorrow, and I will provide a thorough handoff. Thank you (2) Intra-dialytic hypotension Current Visit: Yes Status: Chronic Chronic: with each dialysis, I will continue his home Midodrine to help prevent intra-dialytic hypotension. (3) Acute CVA (cerebrovascular accident) Current Visit: Yes Status: Acute As per primary/neurology. Appreciate Neuro's recs. (4) Weakness Current Visit: Yes Status: Acute (5) Anemia in chronic kidney disease Current Visit: Yes Status: Chronic The goal hemoglobin in dialysis patients is 10-11. He may need IV iron and/or EPO while admitted, and I will monitor. Qualifiers: Chronic kidney disease stage: on chronic dialysis Qualified Code(s): N18.6 - End stage renal disease; D63.1 - Anemia in chronic kidney disease; Z99.2 - Dependence on renal dialysis (6) Proteinuria Current Visit: Yes Status: Chronic Qualifiers: Proteinuria type: persistent Qualified Code(s): R80.1 - Persistent proteinuria, unspecified (7) Hyperkalemia Current Visit: Yes Status: Acute See above. Subjective Principal diagnosis: right sided weakness, CVA Interval history: The patient was seen and examined earlier today, and he was by himself in the 2A exam room. He remains confused so this limited the history of present illness/subjective portion of this note. Objective - Vital Signs Vital signs: Vital Signs Temp Pulse Resp BP Pulse Ox 10/10/18 11:15 97/64 10/10/18 11:00 115/65 10/10/18 10:45 121/76 10/10/18 10:30 106/71 10/10/18 10:15 117/70 10/10/18 10:00 132/76 10/10/18 09:45 144/83 10/10/18 09:30 141/84 10/10/18 09:15 156/85 10/10/18 09:00 98.3 F 18 162/84 10/10/18 06:42 98.2 F 79 18 171/79 95 10/10/18 04:25 97.7 F 77 17 151/52 94 10/10/18 00:36 97.6 F 72 16 169/82 96 10/09/18 19:35 97.6 F 77 17 151/78 92 10/09/18 16:34 98.3 F 75 18 118/73 93 10/09/18 13:29 98.4 F Intake and Output 10/09/18 10/10/18 10/10/18 23:59 07:59 15:59 Intake Total 100 / 200 600 / 600 Balance 100 / 200 600 / 600 Intake: IV Fluids 100 / 200 Ampicillin 2 GM In 0.9 % Sodium 100 / 100 Chloride (Mini-Bag +) 100 ML @ 200 mls/hr IVPB ONCE ONE Rx#: [id number] Oral 0 / 0 Intake, Rinseback and Flushes 600 / 600 Other: # Urine Diapers 1 Blood Glucose* 137 265 131 Hemodialysis Net Fluid Removed 1035 (mL) - General Appearance Exam: General appearance: thin appearing, chronically ill, fatigue, frail EENT: ATNC, mucous membranes dry Additional Comments: unilateral facial droop Neck: no JVD, supple Respiratory: scatter rhonchi on anterior auscultation Cardiology: no edema, normal S1, normal S2 - Dialysis Access Dialysis Vascular Access: Arteriovenous Fistula (right mid arm AVF with minimal ecchymosis and still has a + soft thrill) Additional Comments: AV Access: right sided Permacath without any exit site erythema and Tegaderm is in place Gastrointestinal: normoactive bowel sounds, no tenderness, no guarding Integumentary: no rash, warm and dry Neurologic: hemiparesis and expressive aphasia, plus very little movement Additional Comments: Appeared to exhibit right hemiparesis. - Lab 10/10/18 03:41 10/10/18 03:41 Most recent lab results 10/10/18 03:41 Calcium 8.9 Consult Discharge Plan - Plan Referrals: Raoul Gaona DO [Primary Care Provider] -
[2018-10-10] MEDS ORDERED: 0.9 % Sodium Chloride 1,000 ML ONE (11:45)
--- NOTE | 2018-10-10 11:55 | Neurology Progress Note ---
Date of Encounter: 10/10/18 Time of Encounter: 11:53 Assessment and Plan (1) Acute CVA (cerebrovascular accident) Current Visit: Yes Status: Acute Significant improvement in condition overnight. Patient is alert and oriented 3 today with significant improvement in strength of right side. I do not suspect that he has had an evolution of recent stroke. Most likely his condition was caused by medical encephalopathy which appears to have improved overnight; this coupled with worsening renal function likely lead to patient's weakened state with altered mental status. Neurology will continue to follow peripherally. (2) Acute encephalopathy Current Visit: Yes Status: Acute Acute change in mental state yesterday with fevers and lethargy IM team concerned for CVA, bacterial meningitis vs PNA as cause. Emperic vanc, ceftriaxone, and ampicillin, dexamethasone started yesterday AMS has resolved I do not suspect evolution of CVA, neuro exam does not identify any new focal deficits. Recent MRI imaging excludes evolution. CT imaging repeated yesterday shows stable subacute left pontine infarct. Chest x-ray did not I did not identify any acute pulmonary process In regards to meningitis for this I have low suspicion as the patient has no meningeal signs today on exam and I would not suspect him to improve so rapidly with empiric ABX treatment. Nevertheless we are unable to obtain a lumbar puncture to confirm or exclude as the patient is on aspirin and Plavix; at this juncture I agree with emperic ABX treatment with rapid improvement in condition overnight. Consider other sources of infections as well. Blood cultures pending. C/W medical and supportive care Subjective Principal diagnosis: right sided weakness, CVA Interval history: Seen in follow-up today for reevaluation for concerns of possible evolution of stroke. On examination today the patient is alert and oriented 3 and reports that he is feeling much better. There are no new neurological deficits found on examination today and he is able to move all 4 extremities to command with 4/5 strength all around. I do not suspect that he has had an evolution of stroke. Objective - Constitutional Vitals: Temp Pulse Resp BP Pulse Ox 98.3 F 79 18 97/64 95 10/10/18 09:00 10/10/18 06:42 10/10/18 09:00 10/10/18 11:15 10/10/18 06:42 General appearance: Present: A&O X 3 Exam: Examination: General Examination: *CONSTITUTIONAL: Alert and oriented x3, no acute distress, *GENERAL APPEARANCE OF PATIENT appears healthy and well groomed *EYES: pupils equal, round, reactive to light and accommodation, conjunctiva clear *CARDIOVASCULAR no peripheral edema, distal temperature normal, dorsalis pedis pulses normal. See vital signs Musculoskeletal: *GAIT AND STATION deferred; getting hemodialysis currently *ASSESSMENT OF MUSCLE STRENGTH IN THE UPPER AND LOWER EXTREMITIES bilateral deltoid, bicep, tricep, kick press setter strength, hip flexors ,anterior tibialis, dorsoflexion of the foot 4/5 *MUSCLE TONE IN THE UPPER AND LOWER EXTREMITIES normal. No abnormal movements, fasciculations or atrophy identified. Neurological: *ORIENTATION to person, situation, time and place *RECURRENT AND REMOTE MEMORY intact *ATTENTION AND CONCENTRATION are normal *LANGUAGE FUNCTION no significant aphasia or dysarthia was noted. *FUND OF KNOWLEDGE aware of current events, past history, vocabulary *MENTAL attention span and concentration normal. *CN II optic fundi were normal, no papilledema noted. *CN III,IV, PERRLA extraocular eye movements were full, no nystagmus and no ptosis noted. *CN V shows normal sensation and jaw opens symmetrically. *CN VII shows normal facial movement symmetrically, upper and lower bilaterally. *CN VIII shows no significant hearing loss on exam *CN IX,,X palate elevated symmetrically *CN XI normal strength in the sternocleidomastoid muscles, symmetrical shoulder shrugging. *CN XII tongue protruded in the midline, with normal strength and movement. *SENSORY EXAMINATION light touch intact *REFLEXES: deep tendon reflexes were diminished diffusely, no pathological reflexes were noted. *CEREBELLAR TESTING normal finger to nose, heel/knee/dubon, minimal right- sided drift noted in both right arm and leg *PAIN LEVEL 0/10 - Neurological Exam Sensorimotor examination: Present: intact Motor examination - left side: 4/5: deltoids, quadriceps, tibialis Anterior, 5/5: biceps, triceps, wrist flexion, wrist extension, hip flexors, kick press setter, toe extension (EHL), plantarflexion Sensation intact: Present: intact Posture: Present: other (None) Reflex and gait examination: other (Muscle rigidity noted bilaterally consistent with history of Parkinson disease) Mental Status Examination: Present: awake, alert, oriented to person, oriented to place, oriented to time, follows commands appropriately, answers questions appropriately, no agnosia, no aphasia, no aproxia Cranial nerve examination: Present: PERRL, EOMI, visual pabon intact, corneal reflexes brisk symmetrically, sensory to face intact, mastication intact, no facial asymmetry is present (mild right facial flattening noted), no dysarthria (mild), hearing is intact symmetrically, soft palate elevates bilaterally upon phonation, gag reflex intact, flexes SCM and trapezius muscles symmetrically with full power, tongue protrudes midline (tongue protrude to right slightly) Results - Laboratory Findings CBC and BMP: 10/10/18 03:41 10/10/18 03:41 Abnormal lab findings: Abnormal lab results RBC 3.09 M/mcL (4.19-5.50) L 10/10/18 03:41 Hgb 10.0 g/dL (12.9-16.9) L 10/10/18 03:41 Hct 30.0 % (37.5-50.1) L 10/10/18 03:41 MCV 103.0 fL (83.0-100.0) H 10/08/18 08:22 MCHC 31.5 g/dL (31.6-35.5) L 10/08/18 08:22 ABG pCO2 53 mmHg (35-45) H 10/09/18 11:01 ABG pO2 70 mmHg (85-104) L 10/09/18 11:01 ABG HCO3 34 mEq/L (21-27) H 10/09/18 11:01 ABG Total CO2 36 mEq/L (20-26) H 10/09/18 11:01 ABG O2 Saturation 94 % (95-98) L 10/09/18 11:01 ABG Base Excess 8 mEq/L (-2 to 3) H 10/09/18 11:01 Sodium 134 mEq/L (136-145) L 10/10/18 03:41 Potassium 5.8 mEq/L (3.5-5.1) H 10/10/18 03:41 Chloride 93 mEq/L (98-107) L 10/10/18 03:41 Carbon Dioxide 32 mEq/L (23-29) H 10/05/18 11:10 BUN 80 mg/dL (8-23) H 10/10/18 03:41 8.76 mg/dL (0.70-1.30) H 10/10/18 03:41 Est GFR ( Amer) 7 (> 60) L 10/10/18 03:41 Est GFR (Non-Af Amer) 6 (> 60) L 10/10/18 03:41 Glucose 275 mg/dL (70-105) H 10/10/18 03:41 POC Glucose 208 mg/dL (70-99) H 10/10/18 00:16 312 (280-300) H 10/10/18 03:41 Phosphorus 6.2 mg/dL (2.7-4.5) H 10/05/18 11:10 AST 10 Units/L (13-39) L 10/06/18 09:57 Triglycerides 380 mg/dL (< 150) H 10/05/18 11:10 VLDL Cholesterol, Calc 76 mg/dL (< 31) H 10/05/18 11:10 35 mg/dL (40-59) L 10/05/18 11:10 5.4 (0-4.9) H 10/05/18 11:10 >=300 mg/dL (Neg-Trace) H 10/04/18 09:56 500 mg/dL (Normal) H 10/04/18 09:56 Trace (Negative) H 10/04/18 09:56 3-5 per hpf (0-3) H 10/04/18 09:56 Ur Squamous Epith Cells Many per lpf (None-Few) H 10/04/18 09:56 Hep Bs Antibody < 3.10 mIU/mL (10.00-) L 10/04/18 17:02 Consult Discharge Plan - Plan Referrals: Raoul Gaona DO [Primary Care Provider] -
[2018-10-10 12:52] LABS: Acinetobacter baumannii by PCR Not Detected (Not Detect); Candida albicans by PCR Not Detected (Not Detect); Candida glabrata by PCR Not Detected (Not Detect); Candida krusei by PCR Not Detected (Not Detect); Candida parapsilosis by PCR Not Detected (Not Detect); Candida tropicalis by PCR Not Detected (Not Detect); Enterobacter cloacae Cmplx PCR Not Detected (Not Detect); Enterobacteriaceae by PCR Not Detected (Not Detect); Enterococcus by PCR Not Detected (Not Detect); Escherichia coli by PCR Not Detected (Not Detect); Klebsiella oxytoca by PCR Not Detected (Not Detect); Klebsiella pneumoniae by PCR Not Detected (Not Detect); Proteus by PCR Not Detected (Not Detect); Pseudomonas aeruginosa by PCR Not Detected (Not Detect); Serratia marcescens by PCR Not Detected (Not Detect); Staphylococcus aureus by PCR Not Detected (Not Detect); Staphylococcus by PCR DETECTED (Not Detect); Streptococcus agalactiae(B)PCR Not Detected (Not Detect); Streptococcus by PCR Not Detected (Not Detect); Streptococcus pneumoniae PCR Not Detected (Not Detect); Streptococcus pyogenes (A) PCR Not Detected (Not Detect); blaKPC Carbapenem-Resist Gene Not Detected (Not Detect); mecA Methicillin-Resist Gene Not Detected (Not Detect); vanA/B Vancomycin-Resist Genes Not Detected (Not Detect)
[2018-10-10] MEDS ORDERED: Vancomycin 500 MG in 0.9 % Sodium Chloride Mini Bag 100 ML IVPB ONE (16:00)
[2018-10-10] MEDS: Ampicillin 2 GM in 0.9 % Sodium Chloride Mini Bag 100 ML IVPB SCH (16:19)
[2018-10-10] MEDS ORDERED: Ampicillin 2 GM in 0.9 % Sodium Chloride Mini Bag 100 ML IVPB SCH (18:00)
[2018-10-10] MEDS: Insulin DETEMIR 100 UNIT/ML X5UNITS SQ SCH (20:53)
[2018-10-11] MEDS: Dexamethasone 10 MG/ML VIAL IVP SCH ×4 (01:13→17:03)
[2018-10-11] MEDS: Insulin LISPRO 300 UNITS/3 ML VIAL SQ SCH ×5 (01:13→17:01)
[2018-10-11] MEDS: cefTRIAXone 2,000 MG in Water for inj. (sterile) 20 ML 20 ML IVP SCH ×2 (05:59→16:18)
[2018-10-11] MEDS: *HR* Heparin 5,000 UNIT/ML VIAL SQ SCH ×2 (05:59→16:19)
[2018-10-11 07:13] LABS: Basophils % 0.1 %; Hematocrit 27.5 % (37.5-50.1); Hemoglobin 9.1 g/dL (12.9-16.9); Immature Granulocytes % 0.7 % (0-4); Lymphocytes # 1.4 K/mcL (0.6-4.6); Lymphocytes % 19.4 %; Mean Corpuscular HGB Conc 33.1 g/dL (31.6-35.5); Mean Corpuscular Hemoglobin 32.6 pg (28.0-33.3); Mean Corpuscular Volume 98.6 fL (83.0-100.0); Mean Platelet Volume 10.6 fL (9.4-12.4); Monocytes # 0.7 K/mcL (0.0-1.3); Monocytes % 9.6 %; Platelet Count 271 K/mcL (140-400); Red Blood Count 2.79 M/mcL (4.19-5.50); Segmented Neutrophils % 70.2 %; White Blood Count 7.1 K/mcL (4.3-11.1)
[2018-10-11 07:31] LABS: Potassium 4.6 mEq/L (3.5-5.1)
[2018-10-11] MEDS: Isosorbide MONOnitrate (24 HR) 30 MG TAB.ER.24H PO SCH (08:05)
[2018-10-11] MEDS: Pregabalin 50 MG CAPSULE PO SCH ×2 (08:05→20:49)
[2018-10-11] MEDS: Calcium Acetate 667 MG CAPSULE PO SCH ×3 (08:06→16:16)
[2018-10-11] MEDS: Aspirin Enteric Coated 81 MG Tablet PO SCH (08:06)
[2018-10-11] MEDS: Finasteride 5 MG TABLET PO SCH (08:06)
[2018-10-11] MEDS: carBAMazepine 200 MG TABLET PO SCH ×3 (08:06→20:48)
[2018-10-11] MEDS: Rivastigmine Patch 9.5 MG PATCH.TD24 TP SCH (08:09)
--- NOTE | 2018-10-11 08:43 | Internal Med Progress Note ---
Hospitalist Progress Note - Encounter Date of Encounter: 10/11/18 Time of Encounter: 16:00 - Subjective Interval History: No acute events overnight - Exam Vitals: Temp Pulse Resp BP Pulse Ox 97.9 F 63 19 123/71 90 10/11/18 07:34 10/11/18 07:34 10/11/18 07:34 10/11/18 07:34 10/11/18 07:34 Exam: GEN: NAD CVS: RRR. S1, S2, No m/r/g RESP: Coarse rhonchi ABD: Soft, NT, ND, +BS EXT: No edema. 2+ DP. No rashes NEURO: Cranial 2 through 12 are intact. Patient has strength is about 2 out of 5 in both right upper right lower extremity. Other extremities are 5 out of 5. No sensory deficits.. - Assessment and Plan (1) Acute metabolic encephalopathy Current Visit: Yes Status: Resolved Assessment and Plan: Pt has lethargy and confusion query CVA vs bacterial meningitis vs pneumonia Brain MRI shows stable acute/ early subacute louie infacrt. ABG unremarkable Obtain blood cultures, start empriically on vanc, ceftriaxone, ampicillin and dexamethasone Neuro recs appreciated. LP cannot be performed per IR as patient is on plavix Plan to complete 7 day course of antibiotics for meningitis (2) Acute CVA (cerebrovascular accident) Current Visit: Yes Status: Acute Assessment and Plan: Had a sudden change in mental status yesterday and CT head was negative com pared to previous. He is still not back to himself today compared to when I saw him 2 days ago. he was back to himself yesterday after he returned from CT head. I wonder if he had another TIA. Will get an MRI brain repeated. Patient is already on Plavix. Aspirin added. Continue statin. Neurology is following. Speech to see. May need MBS. Echo showed EF of 35%, No PFO. Previous echo was 40% in 2017. Carotids negative 10/08 MRI of brain demonstrated left pontine infarct-seen by neurology-patient has been experiencing some intermittent confusion as well as mild right-sided weakness. He has been experiencing low blood glucose. We will decrease insulin he has had poor oral intake. Continue with statin and aspirin Plavix PT recommending rehabilitation Speech therapy evaluated. Pureed Diet with nectar thickened liquids Aspiration precautions-high risk for possible aspiration patient does have some scattered rhonchi Sats stable at this time no white count or fever-we will check chest x-ray and monitor CBC (3) Diabetes mellitus Current Visit: Yes Status: Chronic Assessment and Plan: Patient has had poor oral intake we will decrease long acting insulin by half and continue with sliding scale insulin monitor closely and adjust as needed (4) CAD (coronary artery disease) Current Visit: Yes Status: Chronic Assessment and Plan: Continue meds (5) CHF (congestive heart failure) Current Visit: Yes Status: Chronic Assessment and Plan: Continue home meds (6) Hyperkalemia Current Visit: Yes Status: Acute Assessment and Plan: Seen by nephrology recommending renal diet low potassium we will continue to monitor (7) ESRD on dialysis Current Visit: Yes Status: Chronic Assessment and Plan: End-stage renal disease on hemodialysis 3 times a week Sunday. He will have dialysis in the a.m. Monitor strict I's and O's daily weights renal dosing renal diet avoid nephrotoxins Nephrology consult and appreciate recommendations (8) HTN (hypertension) Current Visit: Yes Status: Acute Assessment and Plan: Continue home meds (9) Goals of care, counseling/discussion Current Visit: Yes Status: Acute Assessment and Plan: Will need placement. hotel services sales representative has been consulted awaiting insurance authorization (10) Chronic systolic (congestive) heart failure Current Visit: Yes Status: Acute Assessment and Plan: c/w home meds (11) DVT prophylaxis Current Visit: Yes Status: Acute Assessment and Plan: Heparin subcutaneous - Time Spent with Patient Total time spent is greater than 50% in coordination of care (as documented) at patient's floor/unit and/or counseling patient: Internal Medicine: Result - Labs CBC & Chem 7: 10/11/18 06:36 10/11/18 06:36 Labs: Short CBC 10/11/18 Range/Units 06:36 WBC 7.1 (4.3-11.1) K/mcL Hgb 9.1 L (12.9-16.9) g/dL Hct 27.5 L (37.5-50.1) % Plt Count 271 (140-400) K/mcL Neutrophils # 5.0 (1.6-8.9) K/mcL BMP 10/11/18 06:36 Sodium 137 Potassium 4.6 Chloride 94 L Carbon Dioxide 28 BUN 64 H Creatinine 6.01 H Glucose 243 H Calcium 9.0 - ABG Interpretation ABG results: ABG ABG pH 7.42 pH Units (7.32-7.45) 10/09/18 11:01 ABG pCO2 53 mmHg (35-45) H 10/09/18 11:01 ABG pO2 70 mmHg (85-104) L 10/09/18 11:01 ABG O2 Saturation 94 % (95-98) L 10/09/18 11:01 PT/INR, D-dimer PT 11.8 Seconds (9.4-12.1) 10/06/18 09:57 - Impressions Impressions Videofluoroscopic Swallow 10/10/18 08:00 IMPRESSION: Deep penetration occurred with thin and nectar consistency barium. Please see separate speech pathology report for full discussion of findings and recommendations. 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 transplanted heart: [place] heart Associated angina: without angina Qualified Code(s): I25.810 - Atherosclerosis of coronary artery bypass graft(s) without angina pectoris (5) CHF (congestive heart failure) Qualifiers: Heart failure type: unspecified Heart failure chronicity: chronic Qualified Code(s): I50.9 - Heart failure, unspecified (8) HTN (hypertension) Qualifiers: Hypertension type: essential hypertension Qualified Code(s): I10 - Essential (primary) hypertension
--- NOTE | 2018-10-11 15:23 | Nephrology Progress Note ---
Date of Encounter: 10/11/18 Time of Encounter: 12:00 - Assessment and Plan (1) Hyperkalemia Current Visit: Yes Status: Acute (2) ESRD on dialysis Current Visit: Yes Status: Chronic (3) Weakness Current Visit: Yes Status: Acute (4) Acute CVA (cerebrovascular accident) Current Visit: Yes Status: Acute (5) Anemia in chronic kidney disease Current Visit: Yes Status: Chronic Qualifiers: Chronic kidney disease stage: on chronic dialysis Qualified Code(s): N18.6 - End stage renal disease; D63.1 - Anemia in chronic kidney disease; Z99.2 - Dependence on renal dialysis (6) Proteinuria Current Visit: Yes Status: Chronic Qualifiers: Proteinuria type: persistent Qualified Code(s): R80.1 - Persistent proteinuria, unspecified (7) Intra-dialytic hypotension Current Visit: Yes Status: Chronic Subjective Principal diagnosis: right sided weakness, CVA Interval history: Interim noted, pt seen and examined on HD s/p CVA. Reports feeling better and less right sided weakness today Objective - Vital Signs Vital signs: Vital Signs Temp Pulse Resp BP Pulse Ox 10/11/18 11:49 97.8 F 18 132/72 10/11/18 11:30 102/56 10/11/18 11:15 112/69 10/11/18 11:00 105/64 10/11/18 10:45 105/73 10/11/18 10:30 89/62 10/11/18 10:15 107/65 10/11/18 10:00 110/83 10/11/18 09:45 114/67 10/11/18 09:30 109/69 10/11/18 09:15 121/71 10/11/18 09:00 130/79 10/11/18 08:45 139/82 10/11/18 08:30 97.7 F 18 161/86 10/11/18 07:34 97.9 F 63 19 123/71 90 10/11/18 03:41 97.9 F 69 19 149/68 92 10/11/18 00:28 97.6 F 68 19 159/76 91 10/10/18 19:13 98 F 78 19 145/67 90 10/10/18 15:25 98.5 F 77 18 153/76 92 Intake and Output 10/10/18 10/11/18 10/11/18 23:59 07:59 15:59 Intake Total 220 / 840 600 / 600 Output Total 1062 / 1062 Balance 220 / -760 -462 / -462 Intake: IV Fluids 220 / 240 Rocephin 2,000 MG In Water for 20 / 40 inj. (sterile) 20 ML @ 600 mls/ hr IVP Q12H [facility] Rx#:[id number] Ampicillin 2 GM In 0.9 % Sodium 100 / 100 Chloride (Mini-Bag +) 100 ML @ 200 mls/hr IVPB Q24H [facility] Rx#: [id number] Vancocin 500 MG In 0.9 % Sodium 100 / 100 Chloride (Mini-Bag +) 100 ML @ 100 mls/hr IVPB ONCE ONE Rx#: [id number] Intake, Rinseback and Flushes 600 / 600 Output: Total Dialysis (HD) Output 1062 / 1062 Other: Meal Dinner Percent of Meal Consumed 25% Weight 98.2 kg Blood Glucose* 303 221 143 Hemodialysis Net Fluid Removed 462 (mL) Patient Weight 10/11/18 23:59 Weight 98.2 kg - Lab 10/11/18 06:36 10/11/18 06:36 Most recent lab results 10/11/18 06:36 Calcium 9.0 Consult Discharge Plan - Plan Referrals: Raoul Gaona DO [Primary Care Provider] -
[2018-10-11] MEDS: Ampicillin 2 GM in 0.9 % Sodium Chloride Mini Bag 100 ML IVPB SCH (16:16)
[2018-10-11] MEDS: Insulin DETEMIR 100 UNIT/ML X5UNITS SQ SCH (20:50)
[2018-10-11] MEDS ORDERED: Insulin LISPRO 300 UNITS/3 ML VIAL SQ SCH (21:00)
[2018-10-12] MEDS: Dexamethasone 10 MG/ML VIAL IVP SCH ×3 (00:01→13:04)
[2018-10-12] MEDS: *HR* Heparin 5,000 UNIT/ML VIAL SQ SCH ×2 (06:12→16:59)
[2018-10-12] MEDS: cefTRIAXone 2,000 MG in Water for inj. (sterile) 20 ML 20 ML IVP SCH ×2 (06:13→17:00)
[2018-10-12] MEDS: carBAMazepine 200 MG TABLET PO SCH ×2 (08:21→16:58)
[2018-10-12] MEDS: Finasteride 5 MG TABLET PO SCH (08:21)
[2018-10-12] MEDS: Pregabalin 50 MG CAPSULE PO SCH (08:21)
[2018-10-12] MEDS: Isosorbide MONOnitrate (24 HR) 30 MG TAB.ER.24H PO SCH (08:21)
[2018-10-12] MEDS: Calcium Acetate 667 MG CAPSULE PO SCH ×3 (08:21→16:58)
[2018-10-12] MEDS: Aspirin Enteric Coated 81 MG Tablet PO SCH (08:21)
[2018-10-12] MEDS: Insulin LISPRO 300 UNITS/3 ML VIAL SQ SCH ×3 (08:22→16:59)
[2018-10-12] MEDS: Rivastigmine Patch 9.5 MG PATCH.TD24 TP SCH (08:23)
--- NOTE | 2018-10-12 08:31 | Discharge Summary ---
Orders not resulted at time of discharge: Pending orders 10/09/18 15:34 Culture,Blood [BC] Routine 10/10/18 16:37 Culture,Blood [BC] Routine Date of Encounter: 10/12/18 Time of Encounter: 08:00 - Discharge Diagnosis (1) Acute metabolic encephalopathy Priority: Primary Status: Resolved Assessment and Plan: 73 year old male with PMH of ESRD on HD, DM, HTN, HLD, CAD s/p CABG with stent placement, CHF, CVA who presents to the ER for evaluation of right sided weakness and slurred speech. Patient states he was in his usual state of health until last night, when he started having some speech difficulty and felt that he had slurring of his speech. He went to bed and woke up this morning with right upper and lower extremity weakness and slurred speech witnessed by his which is what prompted his visit to the ER. At this time, he is resting in bed, reports significant improvement in his speech. He states he is able to move his right upper and lower extremity better since hospitalization. Noted to have mild right sided facial droop. As per daughter, present at bedside, patient's symptoms have improved since this morning. He denies any vision changes, headache, lightheadedness, chest pain, sob, abd pain,n/v, fever or chills Pt has lethargy and confusion with confirmed CVA and possible bacterial meningitis. He was assessed with an acute CVA with MRI showing acute louie infarct. He is on aspirin and plavix. He had an acute decline in his mental status with a stiff neck and had low grade fevers and meningitis was entertained as a possibility. We were unable to get an LP as patient is on plavix. He was treated empirically on vanc, ceftriaxone, ampicillin and dexamethasone and he improved. Index for suspicion of meningitis is low but will complete 3 more days of vanc, ceftriaxone and ampicillin. 35 minutes was spent discharging this patient (2) Acute CVA (cerebrovascular accident) Priority: Primary Status: Acute Assessment and Plan: Had a sudden change in mental status yesterday and CT head was negative compared to previous. He is still not back to himself today compared to when I saw him 2 days ago. he was back to himself yesterday after he returned from CT head. I wonder if he had another TIA. Will get an MRI brain repeated. Patient is already on Plavix. Aspirin added. Continue statin. Neurology is following. Speech to see. May need MBS. Echo showed EF of 35%, No PFO. Previous echo was 40% in 2017. Carotids negative 10/08 MRI of brain demonstrated left pontine infarct-seen by neurology-patient has been experiencing some intermittent confusion as well as mild right-sided weakness. He has been experiencing low blood glucose. We will decrease insulin he has had poor oral intake. Continue with statin and aspirin Plavix PT recommending rehabilitation Speech therapy evaluated. Pureed Diet with nectar thickened liquids Aspiration precautions-high risk for possible aspiration patient does have some scattered rhonchi Sats stable at this time no white count or fever-we will check chest x-ray and monitor CBC (3) Diabetes mellitus Priority: Primary Status: Chronic Qualifiers: Diabetes mellitus type: type 2 Diabetes mellitus extermination supervisor insulin use: with extermination supervisor use Diabetes mellitus complication status: with kidney complications Diabetes mellitus complication detail: with chronic kidney disease Chronic kidney disease stage: unspecified stage Qualified Code(s): E11.22 - Type 2 diabetes mellitus with diabetic chronic kidney disease; Z79.4 - watermaster (current) use of insulin (4) CAD (coronary artery disease) Priority: Primary Status: Chronic Qualifiers: Coronary Disease-Associated Artery/Lesion type: bypass graft [place] vs. transplanted heart: [place] heart Associated angina: without angina Qualified Code(s): I25.810 - Atherosclerosis of coronary artery bypass graft(s) without angina pectoris (5) CHF (congestive heart failure) Priority: Primary Status: Chronic Qualifiers: Heart failure type: unspecified Heart failure chronicity: chronic Qualified Code(s): I50.9 - Heart failure, unspecified (6) Hyperkalemia Priority: Primary Status: Acute (7) HTN (hypertension) Priority: Primary Status: Acute Qualifiers: Hypertension type: essential hypertension Qualified Code(s): I10 - Essential (primary) hypertension (8) ESRD on dialysis Priority: Primary Status: Chronic (9) Goals of care, counseling/discussion Priority: Primary Status: Acute (10) Chronic systolic (congestive) heart failure Priority: Primary Status: Acute (11) DVT prophylaxis Priority: Primary Status: Acute Hospital course: Mr. Anguiano is a 73 year old male - Time Spent with Patient Total time spent providing and/or coordinating discharge services: - Discharge Medications Prescriptions: New Aspirin Enteric Coated [Aspirin EC] 81 mg PO DAILY #60 tablet. Ampicillin 2 gm IV Q24H 3 Days #3 vial cefTRIAXone [Rocephin] 2,000 mg IVPB DAILY 3 Days #3 vial Vancomycin HCl in 5 % Dextrose [Vancomycin 750 mg/250 ml-D5w] 750 mg IV Q48H 3 Days #3 plast..bag Continued Insulin ASPART [Novolog Flexpen] 2 - 10 units SQ TIDAC Clopidogrel [Plavix] 75 mg PO DAILY carBAMazepine [Tegretol] 200 mg PO TID Finasteride [Proscar] 5 mg PO DAILY Rosuvastatin [Crestor] 40 mg PO HS Nitroglycerin [Nitrostat] 0.4 mg SL Q5M PRN PRN Reason: Chest Pain Fluticasone Propionate Nasal [Flonase] 2 spray NS DAILY PRN PRN Reason: Allergy Symptoms Omeprazole [PriLOSEC] 40 mg PO DAILY Pregabalin [Lyrica] 100 mg PO BID Calcitriol [Rocaltrol] 0.25 mcg PO DAILY Calcium Acetate [Phos-LO] 1,334 mg PO TIDWM Ergocalciferol (VITAMIN D2) [Vitamin D2] 50,000 units PO WE Insulin Degludec [Tresiba Flextouch U-200] 80 units SQ HS Isosorbide MONOnitrate (24 HR) [Imdur] 30 mg PO DAILY Midodrine HCl 10 mg PO FIGUEROA Rivastigmine Patch [Exelon] 9.5 mg TP DAILY Home Medications: Insulin ASPART [Novolog Flexpen] 2 - 10 units SQ TIDAC 12/16/16 [History] Clopidogrel [Plavix] 75 mg PO DAILY 01/02/17 [History] Finasteride [Proscar] 5 mg PO DAILY 01/02/17 [History] Fluticasone Propionate Nasal [Flonase] 2 spray NS DAILY PRN 01/02/17 [History] Nitroglycerin [Nitrostat] 0.4 mg SL Q5M PRN 01/02/17 [History] Rosuvastatin [Crestor] 40 mg PO HS 01/02/17 [History] carBAMazepine [Tegretol] 200 mg PO TID 01/02/17 [History] Omeprazole [PriLOSEC] 40 mg PO DAILY 01/21/17 [History] Pregabalin [Lyrica] 100 mg PO BID 09/07/17 [History] Calcitriol [Rocaltrol] 0.25 mcg PO DAILY 10/04/18 [History] Calcium Acetate [Phos-LO] 1,334 mg PO TIDWM 10/04/18 [History] Ergocalciferol (VITAMIN D2) [Vitamin D2] 50,000 units PO WE 10/04/18 [History] Insulin Degludec [Tresiba Flextouch U-200] 80 units SQ HS 10/04/18 [History] Isosorbide MONOnitrate (24 HR) [Imdur] 30 mg PO DAILY 10/04/18 [History] Midodrine HCl 10 mg PO FIGUEROA 10/04/18 [History] Rivastigmine Patch [Exelon] 9.5 mg TP DAILY 10/04/18 [History] Ampicillin 2 gm IV Q24H 3 Days #3 vial 10/12/18 [Rx] Aspirin Enteric Coated [Aspirin EC] 81 mg PO DAILY #60 tablet. 10/12/18 [Rx] Vancomycin HCl in 5 % Dextrose [Vancomycin 750 mg/250 ml-D5w] 750 mg IV Q48H 3 Days #3 plast..bag 10/12/18 [Rx] cefTRIAXone [Rocephin] 2,000 mg IVPB DAILY 3 Days #3 vial 10/12/18 [Rx] Allergies/Adverse Reactions: Allergy/AdvReac Type Severity Reaction Status Date / Time No Known Allergies Allergy Verified 10/04/18 19:00 Date of admission: 10/06/18 15:33 Primary care physician: Raoul Gaona Consults: 10/04/18 13:57 Consult to Neurology [CONS] Routine Consulting Provider: Neurology [facility] Reason for Consult: CVA Call Completed: Yes 10/04/18 14:25 Consult to Speech Therapy [CONS] Stat Comment: Evaluate, develop and implement POC Reason for Consult: failed bedside swallow eval Call Completed: Yes 10/04/18 14:36 Consult to Process Design Chemical Engineer [CONS] Routine Reason for SW Consult: Possible need for rehab upon discharge 10/04/18 14:38 Consult to Occupational Therapy [CONS] Routine Comment: Evaluate, develop and implement POC Reason for Consult: CVA Does patient have active BEDREST order?: No Is patient medically & hemodynamically stable?: Yes Patient assessed for mobility or mobilized this visit?: Yes Consult to Physical Therapy [CONS] Routine Comment: Evaluate, develop and implement POC Reason for Consult: CVA Does patient have active BEDREST order?: No Is patient medically & hemodynamically stable?: Yes Patient assessed for mobility or mobilized this visit?: Yes 10/04/18 14:40 Consult to Nephrology [CONS] Routine Consulting Provider: Kidney Radha/SARATH/NILS/BROOKS Reason for Consult: ESRD on HD (MWF) Call Completed: Yes 10/04/18 16:45 Consult to Dialysis [CONS] ONCE 10/07/18 07:00 Consult to Dialysis [CONS] QMWF 10/09/18 07:00 Consult to Dialysis [CONS] QMWF 10/09/18 10:10 Consult to Nurse Navigator [CONS] Routine Comment: hd 10/10/18 07:15 Consult to Dialysis [CONS] ONCE 10/11/18 07:00 Consult to Dialysis [CONS] QMWF - Constitutional Vitals: Temp Pulse Resp BP Pulse Ox 97.8 F 66 19 172/76 92 10/12/18 07:53 10/12/18 07:53 10/12/18 07:53 10/12/18 07:53 10/12/18 07:53 Exam: GEN: NAD CVS: RRR. S1, S2, No m/r/g RESP: Coarse rhonchi ABD: Soft, NT, ND, +BS EXT: No edema. 2+ DP. No rashes NEURO: Cranial 2 through 12 are intact. Patient has strength is about 2 out of 5 in both right upper right lower extremity. Other extremities are 5 out of 5. No sensory deficits.. - Patient Status Disposition: Transfer SNF Condition: Good - Discharge Instructions Follow Up With: Raoul Gaona DO [Primary Care Provider] -
[2018-10-12 10:35] LABS: Calcium 9.1 mg/dL (8.6-10.3); Potassium 4.8 mEq/L (3.5-5.1)
[2018-10-12] MEDS ORDERED: *HR* Heparin 10,000 UNIT/10 ML VIAL IV PRN (13:11)
[2018-10-12] MEDS ORDERED: 0.9 % Sodium Chloride 250 ML IVC PRN (13:11)
[2018-10-12] MEDS ORDERED: 0.9 % Sodium Chloride 1,000 ML PRIME SCH (13:15)
--- NOTE | 2018-10-12 14:49 | Nephrology Progress Note ---
Date of Encounter: 10/12/18 Time of Encounter: 14:00 - Assessment and Plan (1) Hyperkalemia Current Visit: Yes Status: Acute resolved (2) ESRD on dialysis Current Visit: Yes Status: Chronic Continue HD for 2hrs today to get into new TTS schedule on discharge Minimal UF planned today s/p HD yesterday as well Lytes stable (3) Weakness Current Visit: Yes Status: Acute (4) Acute CVA (cerebrovascular accident) Current Visit: Yes Status: Acute (5) Anemia in chronic kidney disease Current Visit: Yes Status: Chronic Qualifiers: Chronic kidney disease stage: on chronic dialysis Qualified Code(s): N18.6 - End stage renal disease; D63.1 - Anemia in chronic kidney disease; Z99.2 - Dependence on renal dialysis (6) Proteinuria Current Visit: Yes Status: Chronic Qualifiers: Proteinuria type: persistent Qualified Code(s): R80.1 - Persistent proteinuria, unspecified (7) Intra-dialytic hypotension Current Visit: Yes Status: Chronic Subjective Principal diagnosis: right sided weakness, CVA Interval history: Pt seen nd examined on HD, getting discharged today afterwards Objective - Vital Signs Vital signs: Vital Signs Temp Pulse Resp BP Pulse Ox 10/12/18 14:30 121/59 10/12/18 14:15 131/76 10/12/18 14:00 159/78 10/12/18 13:45 98 F 18 146/79 10/12/18 11:49 97.9 F 73 19 145/75 93 10/12/18 07:53 97.8 F 66 19 172/76 92 10/12/18 04:02 98 F 65 19 163/68 92 10/11/18 23:39 97.8 F 68 19 152/74 93 10/11/18 20:09 98.1 F 79 19 133/69 91 10/11/18 16:47 98.1 F 89 19 109/65 90 Intake and Output 10/11/18 10/12/18 10/12/18 23:59 07:59 15:59 Intake Total 20 / 640 780 / 780 Balance 20 / -422 780 / 780 Intake: IV Fluids 20 / 40 Rocephin 2,000 MG In Water for 20 inj. (sterile) 20 ML @ 600 mls/ hr IVP Q12H [facility] Rx#:[id number] Oral 180 / 180 Intake, Rinseback and Flushes 600 / 600 Other: Meal Lunch Percent of Meal Consumed 100% # Voids 1 Weight 98.2 kg Blood Glucose* 454 356 368 Hemodialysis Net Fluid Removed 595 (mL) - Lab 10/11/18 06:36 10/12/18 09:53 Most recent lab results 10/12/18 09:53 Calcium 9.1 Consult Discharge Plan - Plan Referrals: Raoul Gaona DO [Primary Care Provider] - Prescriptions: Ampicillin 2 gm IV Q24H 3 Days #3 vial Aspirin Enteric Coated [Aspirin EC] 81 mg PO DAILY #60 tablet. cefTRIAXone [Rocephin] 2,000 mg IVPB DAILY 3 Days #3 vial Vancomycin HCl in 5 % Dextrose [Vancomycin 750 mg/250 ml-D5w] 750 mg IV Q48H 3 Days #3 plast..bag
--- NOTE | 2018-10-12 15:08 | Physician Discharge Referral ---
- Diagnosis (1) Acute metabolic encephalopathy Priority: Primary Status: Resolved (2) Acute CVA (cerebrovascular accident) Priority: Primary Status: Acute (3) Diabetes mellitus Priority: Primary Status: Chronic (4) CAD (coronary artery disease) Priority: Primary Status: Chronic (5) CHF (congestive heart failure) Priority: Primary Status: Chronic (6) Hyperkalemia Priority: Primary Status: Acute (7) HTN (hypertension) Priority: Primary Status: Acute (8) ESRD on dialysis Priority: Primary Status: Chronic (9) Goals of care, counseling/discussion Priority: Primary Status: Acute (10) Chronic systolic (congestive) heart failure Priority: Primary Status: Acute (11) DVT prophylaxis Priority: Primary Status: Acute - Transfer Medications Prescriptions: Ampicillin 2 gm IV Q24H 3 Days #3 vial Aspirin Enteric Coated [Aspirin EC] 81 mg PO DAILY #60 tablet.dr cefTRIAXone [Rocephin] 2,000 mg IVPB DAILY 3 Days #3 vial Vancomycin HCl in 5 % Dextrose [Vancomycin 750 mg/250 ml-D5w] 750 mg IV Q48H 3 Days #3 plast..bag Home Medications: Insulin ASPART [Novolog Flexpen] 2 - 10 units SQ TIDAC 12/16/16 [History] Clopidogrel [Plavix] 75 mg PO DAILY 01/02/17 [History] Finasteride [Proscar] 5 mg PO DAILY 01/02/17 [History] Fluticasone Propionate Nasal [Flonase] 2 spray NS DAILY PRN 01/02/17 [History] Nitroglycerin [Nitrostat] 0.4 mg SL Q5M PRN 01/02/17 [History] Rosuvastatin [Crestor] 40 mg PO HS 01/02/17 [History] carBAMazepine [Tegretol] 200 mg PO TID 01/02/17 [History] Omeprazole [PriLOSEC] 40 mg PO DAILY 01/21/17 [History] Pregabalin [Lyrica] 100 mg PO BID 09/07/17 [History] Calcitriol [Rocaltrol] 0.25 mcg PO DAILY 10/04/18 [History] Calcium Acetate [Phos-LO] 1,334 mg PO TIDWM 10/04/18 [History] Ergocalciferol (VITAMIN D2) [Vitamin D2] 50,000 units PO WE 10/04/18 [History] Insulin Degludec [Tresiba Flextouch U-200] 80 units SQ HS 10/04/18 [History] Isosorbide MONOnitrate (24 HR) [Imdur] 30 mg PO DAILY 10/04/18 [History] Midodrine HCl 10 mg PO FIGUEROA 10/04/18 [History] Rivastigmine Patch [Exelon] 9.5 mg TP DAILY 10/04/18 [History] Ampicillin 2 gm IV Q24H 3 Days #3 vial 10/12/18 [Rx] Aspirin Enteric Coated [Aspirin EC] 81 mg PO DAILY #60 tablet.dr 10/12/18 [Rx] Vancomycin HCl in 5 % Dextrose [Vancomycin 750 mg/250 ml-D5w] 750 mg IV Q48H 3 Days #3 plast..bag 10/12/18 [Rx] cefTRIAXone [Rocephin] 2,000 mg IVPB DAILY 3 Days #3 vial 10/12/18 [Rx] Allergies/Adverse Reactions: Allergy/AdvReac Type Severity Reaction Status Date / Time No Known Allergies Allergy Verified 10/04/18 19:00 - Respiratory Orders Smoking Cessation: Smoking cessation has been advised. For more information, call the [place] Tobacco Quit Line at 1-400-WVOY-NOW. - Mobility Orders Ambulate CERTIFICATION: I certify that the transfer of the above named patient to an Extended Care Facility is necessary for the continuing treatment of the diagnosis listed. The above information is true and accurate reflection of patient's current condition. Confidential - Redisclosure prohibited without a patient's written consent.
[2018-10-12 16:20] VITALS: BP 148/73
[2018-10-12] MEDS: Ampicillin 2 GM in 0.9 % Sodium Chloride Mini Bag 100 ML IVPB SCH (16:59)
== END 2018-10-12 18:45 | DRG 64 ==
LOC: EMEROOARM 08:58 → 2ANU 08:58 → SUATTDRO 12:35 → 2ANU 13:27
PROVIDERS: ADMIT Internal Medicine Nephrology; ATTEND Internal Medicine

== ENCOUNTER 2018-10-20 19:51 | Inpatient (IN) ==
[2018-10-20] MEDS ORDERED: Acetaminophen 650 MG RECTAL SUPP RC ONE (20:01)
[2018-10-20 20:10] LABS: Basophils % 0.2 %; Eosinophils # 0.2 K/mcL (0.0-0.6); Eosinophils % 2.1 %; Hemoglobin 9.9 g/dL (12.9-16.9); Immature Granulocytes % 0.5 % (0-4); Lymphocytes # 1.2 K/mcL (0.6-4.6); Lymphocytes % 10.9 %; Mean Corpuscular HGB Conc 31.9 g/dL (31.6-35.5); Mean Corpuscular Hemoglobin 32.9 pg (28.0-33.3); Mean Platelet Volume 9.7 fL (9.4-12.4); Monocytes # 0.6 K/mcL (0.0-1.3); Monocytes % 5.1 %; Platelet Count 305 K/mcL (140-400); Red Blood Count 3.01 M/mcL (4.19-5.50); Red Cell Distribution Width 13.4 % (11.5-14.5); Segmented Neutrophils % 81.2 %; White Blood Count 11.1 K/mcL (4.3-11.1)
[2018-10-20 20:17] LABS: INR 1.1
[2018-10-20 20:20] LABS: Activated Partial Thrombo Time 29.7 Seconds (26.0-36.0)
[2018-10-20] MEDS ORDERED: Cefepime HCl 2,000 MG in Water for inj. (sterile) 20 ML 20 ML IVP STA (20:20)
[2018-10-20] MEDS ORDERED: Levofloxacin 750 MG/150 ML 750 MG/150 ML BAG IVPB ONE (20:20)
[2018-10-20 20:27] LABS: BUN/Creatinine Ratio 10 (6-26); Blood Urea Nitrogen 55 mg/dL (8-23); Calcium 9.3 mg/dL (8.6-10.3); Carbon Dioxide 23 mEq/L (23-29); Chloride 103 mEq/L (98-107); Glucose 78 mg/dL (70-105); Osmolality,Calculated 308 (280-300); Potassium 5.3 mEq/L (3.5-5.1); Sodium 142 mEq/L (136-145); eGFR For African Americans 12 (> 60); eGFR For Non-African Americans 10 (> 60)
[2018-10-20 20:29] LABS: Alanine Aminotransferase < 3 Units/L (7-52); Albumin 3.6 g/dL (3.5-5.7); Albumin/Globulin Ratio 1.1 (1.1-2.2); Alkaline Phosphatase 53 Units/L (34-104); Aspartate Amino Transferase 9 Units/L (13-39); Bilirubin,Direct 0.1 mg/dL (0.0-0.2); Bilirubin,Indirect 0.2 mg/dL (0.0-1.2); Bilirubin,Total 0.3 mg/dL (0.3-1.0); Globulin 3.3 g/dL (2.4-3.5); Magnesium 2.4 mg/dL (1.6-2.6); Phosphorous 6.2 mg/dL (2.7-4.5); Total Protein 6.9 g/dL (6.4-8.9); Troponin I < 0.03 ng/mL (< 0.04)
[2018-10-20] MEDS ORDERED: Isovue-370 500 ML BOTTLE IVP ONE (20:52)
[2018-10-20 21:53] LABS: Bilirubin,Urine Negative (Negative); Blood,Urine Negative (Negative); Clarity,Urine Clear (Clear); Color,Urine Yellow (Yellow); Glucose,Urine (UA) >=1000 mg/dL (Normal); Ketones,Urine Negative (Negative); Leukocyte Esterase,Urine Negative (Negative); Nitrite,Urine Negative (Negative); PH,Urine 6.5 pH Units (5.0-8.0); Protein,Urine 100 mg/dL (Neg-Trace); Urobilinogen,Urine Normal (Normal)
[2018-10-20 21:55] LABS: Bacteria,Urine None Seen per hpf (None-Few); Hyaline Casts,Urine None Seen per lpf (None-Few); Squamous Epithelial Cell,Urine Moderate per lpf (None-Few); WBC,Urine 0-3 per hpf (0-3)
--- NOTE | 2018-10-20 23:18 | Emergency Department Note ---
Disposition Clinical Impression: Hypotension Qualifiers: Hypotension type: unspecified hypotension type Qualified Code(s): I95.9 - Hypotension, unspecified Disposition: Still a Patient Referrals: Raoul Gaona DO [Primary Care Provider] - Forms: ED Satisfaction Letter Time of Disposition: 23:20 General Adult HPI - General Chief complaint: ED Neuro Symptoms/Deficit Stated complaint: possible stroke Time Seen by Provider: 10/20/18 19:58 Source: EMS Mode of arrival: EMS Limitations: altered mental status - History of Present Illness HPI Narrative: This is just a procedure note. For full H&P referred to the note by Dr. Goldberg and Dr. Sky. Pain Scale: 0 - Related Data Home Medications Medication Instructions Recorded Confirmed Clopidogrel [Plavix] 75 mg PO DAILY 01/02/17 10/20/18 Finasteride [Proscar] 5 mg PO DAILY 01/02/17 10/20/18 Fluticasone Propionate Nasal 100 mcg NS DAILY PRN 01/02/17 10/20/18 [Flonase] Nitroglycerin [Nitrostat] 0.4 mg SL Q5MIN PRN 01/02/17 10/20/18 carBAMazepine [Tegretol] 200 mg PO TID 01/02/17 10/20/18 Omeprazole [PriLOSEC] 40 mg PO DAILY 01/21/17 10/20/18 Calcitriol [Rocaltrol] 0.25 mcg PO DAILY 10/04/18 10/20/18 Calcium Acetate [Phos-LO] 1,334 mg PO TIDWM 10/04/18 10/20/18 Ergocalciferol (VITAMIN D2) 50,000 units PO WE 10/04/18 10/20/18 [Vitamin D2] Insulin Degludec [Tresiba 80 units SQ HS 10/04/18 10/20/18 Flextouch U-200] Isosorbide MONOnitrate (24 HR) 30 mg PO DAILY 10/04/18 10/20/18 [Imdur] Midodrine HCl 10 mg PO FIGUEROA 10/04/18 10/20/18 Rivastigmine Patch [Exelon] 9.5 mg TP DAILY 10/04/18 10/20/18 Atorvastatin Calcium [Lipitor] 80 mg PO HS 10/20/18 10/20/18 Carbidopa/Levodopa 1 each PO BID 10/20/18 10/20/18 [Carbidopa-Levodopa 25-100 Tab] Insulin LISPRO [HumaLOG] 0 units SQ TIDWM 10/20/18 10/20/18 Previous Rx's Medication Instructions Recorded Aspirin Enteric Coated [Aspirin EC] 81 mg PO DAILY #60 tablet. 10/12/18 Pregabalin [Lyrica] 100 mg PO BID 30 Days #60 capsule 10/13/18 Allergies Allergy/AdvReac Type Severity Reaction Status Date / Time No Known Allergies Allergy Verified 10/04/18 19:00 Past Medical History - Past Medical History Medical history: Reports: cancer, CVA, diabetes, glaucoma, hyperlipidemia, hypertension, renal disease, other Surgical history: Reports: angioplasty/stent, cataract, coronary bypass (CABG), orthopedic, other Psychiatric history: Reports: depression - Social History Smoking Status: Never smoker Smokeless Tobacco Status: No Alcohol use: Reports: none Drug use: Reports: none Physical Exam - General Limitations: altered mental status General appearance: alert Course Vital Signs Temperature 101.3 F H 10/20/18 19:52 Pulse Rate 101 10/20/18 19:52 Respiratory Rate 18 10/20/18 19:52 Blood Pressure 169/72 10/20/18 19:52 O2 Sat by Pulse Oximetry 90 10/20/18 19:52 Temperature 101.3 F H 10/20/18 19:52 Pulse Rate 101 10/20/18 21:08 Respiratory Rate 20 10/20/18 21:08 Blood Pressure 128/68 10/20/18 21:08 O2 Sat by Pulse Oximetry 96 10/20/18 21:08 Oxygen Delivery Oxygen Delivery Room Air Procedures - Central Line Placement Left Femoral Central Line Inserted*: Yes Central Line Catheter Replacement*: No Central Line Insertion: emergent Consent Obtained: written consent Procedural Pause: verify patient name and date of , timeout performed per policy, owen and assess the site, assemble equipment and verify supplies, perform hand hygiene Patient Placed on Monitor/Pulse Ox: Yes During the Procedure: clinician is wearing sterile gloves, cap, mask,& gown during insertion, sterile field and sterile technique are maintained, patient's face is covered with drape or mask and wearing a cap, everyone in room is wearing a mask Central Line Prep: Chlorhexidine scrub, sterile drapes applied Prep the Procedure Site: apply chloraprep to the skin using a back and forth scrubbing motion, apply chloraprep for 30 seconds (upper body), 1-2 min (femoral sites), allow prep to dry, drape the patient with a full body drape Local Anesthetic: lidocaine 1%, with epi Amount of anesthesia used (mL): 5 Ultrasound Used for Placement: Yes Central Line Lumen Inserted: triple Post Procedure: sutured in place, good blood return, all ports aspirated, flushed, capped, sterile dressing applied, guide wire removed and visualized Patient Tolerated Procedure: well Complications: none Name of Clinician Inserting Central Line: Karolyn Curtis Clinician Assisting/Completing Checklist: Alex Cerrato Date: 10/20/18 Time: 23:19 Medical Decision Making - Lab Data Result diagrams: 10/20/18 19:50 10/20/18 19:50 Lab Results 10/20/18 10/20/18 10/20/18 Range/Units 19:50 19:50 19:50 WBC 11.1 (4.3-11.1) K/mcL RBC 3.01 L (4.19-5.50) M/mcL Hgb 9.9 L (12.9-16.9) g/dL Hct 31.0 L (37.5-50.1) % MCV 103.0 H (83.0-100.0) fL MCH 32.9 (28.0-33.3) pg MCHC 31.9 (31.6-35.5) g/dL RDW 13.4 (11.5-14.5) % Plt Count 305 (140-400) K/mcL MPV 9.7 (9.4-12.4) fL Immature Gran % 0.5 (0-4) % Seg Neutrophils % 81.2 % Lymphocytes % 10.9 % Monocytes % 5.1 % Eosinophils % 2.1 % Basophils % 0.2 % Neutrophils # 9.0 H (1.6-8.9) K/mcL Lymphocytes # 1.2 (0.6-4.6) K/mcL Monocytes # 0.6 (0.0-1.3) K/mcL Eosinophils # 0.2 (0.0-0.6) K/mcL Basophils # 0.0 (0.0-0.2) K/mcL PT 12.0 (9.4-12.1) Seconds INR 1.1 APTT 29.7 (26.0-36.0) Seconds Sodium 142 (136-145) mEq/L Potassium 5.3 H (3.5-5.1) mEq/L Chloride 103 (98-107) mEq/L Carbon Dioxide 23 (23-29) mEq/L BUN 55 H (8-23) mg/dL Creatinine 5.73 H (0.70-1.30) mg/dL Est GFR ( Amer) 12 L (> 60) Est GFR (Non-Af Amer) 10 L (> 60) BUN/Creatinine Ratio 10 (6-26) Glucose 78 (70-105) mg/dL Calculated Osmolality 308 H (280-300) Lactic Acid (0.5-2.2) mmol/L Calcium 9.3 (8.6-10.3) mg/dL Phosphorus (2.7-4.5) mg/dL Magnesium (1.6-2.6) mg/dL Total Bilirubin (0.3-1.0) mg/dL Direct Bilirubin (0.0-0.2) mg/dL Indirect Bilirubin (0.0-1.2) mg/dL AST (13-39) Units/L ALT (7-52) Units/L Alkaline Phosphatase (34-104) Units/L Troponin I < 0.03 (< 0.04) ng/mL Serum Total Protein (6.4-8.9) g/dL Albumin (3.5-5.7) g/dL Globulin (2.4-3.5) g/dL Albumin/Globulin Ratio (1.1-2.2) Urine Color (Yellow) Urine Clarity (Clear) Urine pH (5.0-8.0) pH Units Ur Specific [place] (1.010-1.025) Urine Protein (Neg-Trace) mg/dL Urine Glucose (UA) (Normal) mg/dL Urine Ketones (Negative) mg/dL Urine Blood (Negative) Urine Nitrite (Negative) Urine Bilirubin (Negative) Urine Urobilinogen (Normal) mg/dL Ur Leukocyte Esterase (Negative) Urine Microscopic RBC (0-3) per hpf Urine Microscopic WBC (0-3) per hpf Ur Squamous Epith Cells (None-Few) per lpf Urine Bacteria (None-Few) per hpf Hyaline Casts (None-Few) per lpf Ur Culture Indicated? (NO) 10/20/18 10/20/18 10/20/18 Range/Units 19:50 19:58 Unknown WBC (4.3-11.1) K/mcL RBC (4.19-5.50) M/mcL Hgb (12.9-16.9) g/dL Hct (37.5-50.1) % MCV (83.0-100.0) fL MCH (28.0-33.3) pg MCHC (31.6-35.5) g/dL RDW (11.5-14.5) % Plt Count (140-400) K/mcL MPV (9.4-12.4) fL Immature Gran % (0-4) % Seg Neutrophils % % Lymphocytes % % Monocytes % % Eosinophils % % Basophils % % Neutrophils # (1.6-8.9) K/mcL Lymphocytes # (0.6-4.6) K/mcL Monocytes # (0.0-1.3) K/mcL Eosinophils # (0.0-0.6) K/mcL Basophils # (0.0-0.2) K/mcL PT (9.4-12.1) Seconds INR APTT (26.0-36.0) Seconds Sodium (136-145) mEq/L Potassium (3.5-5.1) mEq/L Chloride (98-107) mEq/L Carbon Dioxide (23-29) mEq/L BUN (8-23) mg/dL Creatinine (0.70-1.30) mg/dL Est GFR ( Amer) (> 60) Est GFR (Non-Af Amer) (> 60) BUN/Creatinine Ratio (6-26) Glucose (70-105) mg/dL Calculated Osmolality (280-300) Lactic Acid 0.9 (0.5-2.2) mmol/L Calcium (8.6-10.3) mg/dL Phosphorus 6.2 H (2.7-4.5) mg/dL Magnesium 2.4 (1.6-2.6) mg/dL Total Bilirubin 0.3 (0.3-1.0) mg/dL Direct Bilirubin 0.1 (0.0-0.2) mg/dL Indirect Bilirubin 0.2 (0.0-1.2) mg/dL AST 9 L (13-39) Units/L ALT < 3 L (7-52) Units/L Alkaline Phosphatase 53 (34-104) Units/L Troponin I (< 0.04) ng/mL Serum Total Protein 6.9 (6.4-8.9) g/dL Albumin 3.6 (3.5-5.7) g/dL Globulin 3.3 (2.4-3.5) g/dL Albumin/Globulin Ratio 1.1 (1.1-2.2) Urine Color Yellow (Yellow) Urine Clarity Clear (Clear) Urine pH 6.5 (5.0-8.0) pH Units Ur Specific [place] 1.010 (1.010-1.025) Urine Protein 100 H (Neg-Trace) mg/dL Urine Glucose (UA) >=1000 H (Normal) mg/dL Urine Ketones Negative (Negative) mg/dL Urine Blood Negative (Negative) Urine Nitrite Negative (Negative) Urine Bilirubin Negative (Negative) Urine Urobilinogen Normal (Normal) mg/dL Ur Leukocyte Esterase Negative (Negative) Urine Microscopic RBC 5-15 H (0-3) per hpf Urine Microscopic WBC 0-3 (0-3) per hpf Ur Squamous Epith Cells Moderate H (None-Few) per lpf Urine Bacteria None Seen (None-Few) per hpf Hyaline Casts None Seen (None-Few) per lpf Ur Culture Indicated? NO (NO) Attestation Statement - Attestation Attestation: I have seen this patient with the resident physician, I have personally evaluated this patient. I had reviewed the chart and document dictation by the resident physician and aM in agreement with the information documented by the resident physician. Please see documentation by the resident physician for complete chart including past medical history, family medical history, review of systems, current history and physical and laboratory and imaging studies. I was present for all procedures, provided direct supervision for all procedures, was present for the entirety of all procedures and provided direct guidance during the procedures. Please see documentation by the resident physician for any procedures performed. I have reviewed all interpretations of EKGs, and reviewed all EKGs performed on patient's as well. I have also reviewed reports of imaging as provided by radiology. The patient had a central venous line placed for inability to establish any peripheral access, with evidence for potential sepsis, and stroke. I was present for the entirety of this procedure performed by the resident physician under ultrasound guidance of the left femoral vein. One attempt successful cannulation of the vein under ultrasound guidance, Seldinger technique utilized, wire was accounted for intermittent from the patient. All lines flushed and rosalie back easily. No noted complications
[2018-10-20] MEDS: 0.9 % Sodium Chloride 1,000 ML IVC SCH (23:31)
--- NOTE | 2018-10-20 23:38 | Emergency Department Note ---
Disposition Clinical Impression: SIRS (systemic inflammatory response syndrome), Hypoxia, Weakness, Multifocal pneumonia, Stroke-like symptom Altered mental status Qualifiers: Altered mental status type: unspecified Qualified Code(s): R41.82 - Altered mental status, unspecified Disposition: Admitted As Inpatient Condition: Fair Time of Disposition: 03:33 Neuro HPI - General Chief Complaint: ED Neuro Symptoms/Deficit Stated Complaint: possible stroke Time Seen by Provider: 10/20/18 19:58 Source: EMS Mode of arrival: EMS Limitations: altered mental status Nursing Notes Reviewed: Yes Vital Signs Reviewed: Yes - History of Present Illness HPI Narrative: 73-year-old male presents to the emergency department from a nursing facility for altered mental status. 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 They said that today around 6:30 PM he became altered and they noticed left-sided weakness. He does have chronic right-sided weakness secondary to his previous CVA. He was restarted on Plavix and aspirin. No other blood thinners. They said that he did have a fever he has been complaining of a cough and congestion. Over the last few days as well. Family is at bedside said this is deftly not his normal state. They say is much more altered than normal. Did not take any medications is been no recent falls or trauma. Patient also has history of end-stage renal disease where he currently has a catheter and undergoes three-day week dialysis is getting ready to have a fistula placed in the right arm. - Related Data Home Medications: Home Medications Medication Instructions Recorded Confirmed Clopidogrel [Plavix] 75 mg PO DAILY 01/02/17 10/20/18 Finasteride [Proscar] 5 mg PO DAILY 01/02/17 10/20/18 Fluticasone Propionate Nasal 100 mcg NS DAILY PRN 01/02/17 10/20/18 [Flonase] Nitroglycerin [Nitrostat] 0.4 mg SL Q5MIN PRN 01/02/17 10/20/18 carBAMazepine [Tegretol] 200 mg PO TID 01/02/17 10/20/18 Omeprazole [PriLOSEC] 40 mg PO DAILY 01/21/17 10/20/18 Calcitriol [Rocaltrol] 0.25 mcg PO DAILY 10/04/18 10/20/18 Calcium Acetate [Phos-LO] 1,334 mg PO TIDWM 10/04/18 10/20/18 Ergocalciferol (VITAMIN D2) 50,000 units PO WE 10/04/18 10/20/18 [Vitamin D2] Insulin Degludec [Tresiba 80 units SQ HS 10/04/18 10/20/18 Flextouch U-200] Isosorbide MONOnitrate (24 HR) 30 mg PO DAILY 10/04/18 10/20/18 [Imdur] Midodrine HCl 10 mg PO FIGUEROA 10/04/18 10/20/18 Rivastigmine Patch [Exelon] 9.5 mg TP DAILY 10/04/18 10/20/18 Atorvastatin Calcium [Lipitor] 80 mg PO HS 10/20/18 10/20/18 Carbidopa/Levodopa 1 each PO BID 10/20/18 10/20/18 [Carbidopa-Levodopa 25-100 Tab] Insulin LISPRO [HumaLOG] 0 units SQ TIDWM 10/20/18 10/20/18 Previous Rx's Medication Instructions Recorded Aspirin Enteric Coated [Aspirin EC] 81 mg PO DAILY #60 tablet. 10/12/18 Pregabalin [Lyrica] 100 mg PO BID 30 Days #60 capsule 10/13/18 Allergies/Adverse Reactions: Allergies Allergy/AdvReac Type Severity Reaction Status Date / Time No Known Allergies Allergy Verified 10/04/18 19:00 All systems ED: reviewed and negative except as stated. Review of Systems: As Per HPI Past Medical History - Past Medical History Attestation: Yes The following information was validated with the patient. Source: patient Medical history: Reports: cancer, CVA, diabetes, glaucoma, hyperlipidemia, hypertension, renal disease, other Surgical history: Reports: angioplasty/stent, cataract, coronary bypass (CABG), orthopedic, other Psychiatric history: Reports: depression - Social History Smoking Status: Never smoker Smokeless Tobacco Status: No Alcohol use: Reports: none Drug use: Reports: none Physical Exam - General Limitations: altered mental status General appearance: alert - Head Head exam: atraumatic, normocephalic, normal inspection - Eye Eye exam: Present: normal appearance, PERRL, EOMI - ENT ENT exam: normal exam, normal oropharynx, mucous membranes moist - Neck Neck exam: Present: normal inspection, full ROM, trachea midline - Chest Chest inspection: Present: normal inspection, symmetric chest wall rise - Respiratory Respiratory exam: Present: wheezes (And rhonchi bilaterally in the bases). Abs ent: respiratory distress, accessory muscle use - Cardiovascular Cardiovascular exam: Present: regular rate, normal rhythm, normal heart sounds - Abdominal Exam Abdominal exam: Present: soft, Non-Tender, normal bowel sounds. Absent: tenderness, distention, guarding, rebound, rigidity - Extremities Exam Extremities exam: Present: normal inspection, full ROM. Absent: tenderness, p edal edema - Back Exam Back exam: Present: normal inspection, full ROM. Absent: tenderness, CVA tenderness (R), CVA tenderness (L) - Neurological Exam Neurological exam: Present: alert - Expanded Neurological Exam Patient oriented to: Present: person, place, time Speech: Present: fluid speech Cranial nerves: EOM function (II, III, IV, ): Abnormal Left, Abnormal Right, facial sensation (V): Abnormal Left, Abnormal Right, facial palsy (VII): Abnormal Left, Abnormal Right, spinal accessory function (XI): Abnormal Left, Abnormal Right, tongue deviation (XII): Normal Motor strength - LUE: 2/5 Motor strength - RUE: 2/5 Motor strength - LLE: 2/5 Motor strength - RLE: 2/5 Upper motor neuron exam: praveen neglect: Absent bilaterally, pronator drift: Absent bilaterally Sensory exam upper extremity: light touch: Normal Sensory exam lower extremity: light touch: Normal Coma Scale Eye Opening: To Voice Coma Scale Motor Response: Withdraws to Pain Coma Scale Verbal Response: Confused Coma Scale Total: 11 - Skin Skin exam: Present: warm, dry, intact, normal color Course Course Narrative: When patient arrived he was altered due to the altered as well as the new left- sided weakness he has a chronic right-sided weeks I did call a stroke alert. I did get a call from the radiologist that it was negative. Patient will get a septic workup as well as he did have a fever and as well was tracked tachycardic. Patient is nonseptic shock this time blood pressures have been stable. Physician most likely his admission for further evaluation.. Vital Signs Temperature 101.3 F H 10/20/18 19:52 Pulse Rate 101 10/20/18 19:52 Respiratory Rate 18 10/20/18 19:52 Blood Pressure 169/72 10/20/18 19:52 O2 Sat by Pulse Oximetry 90 10/20/18 19:52 Temperature 101.3 F H 10/20/18 19:52 Pulse Rate 96 10/21/18 01:51 Respiratory Rate 20 10/21/18 01:51 Blood Pressure 153/95 10/21/18 01:51 O2 Sat by Pulse Oximetry 97 10/21/18 01:51 Oxygen Delivery Oxygen Delivery Room Air Neuro Symptoms/Deficit - MDM Narrative Medical decision making narrative: Patient presented as a stroke alert. I did speak with [facility]'s stroke team and neurologist. They said this most likely is a sepsis presentation less likely a stroke. [place] also not a TPA candidate. He recommended a CT angiogram of the head and neck for further evaluation. Patient when he did arrive was hypoxic place him on auction he did respond well. Patient is presenting like a sepsis he does not meet severe sepsis or septic shock at this time blood pressures have been stable. Does have history of ESRD is currently on dialysis. There were multiple attempts at IVs with ultrasound included and they are unable to place 1. Due to this we did look for an EJ is s till unable to get it so we ended up placing a femoral central venous catheter. This was done by Dr. Curtis was successfully done. A triple lumen was placed. Because patient was recently here and on multiple antibiotics for a similar episode. We decided to start him on cefepime, Levaquin, vancomycin. Patient is a 3 day week dialysis patient. Reading through old notes neurology recommended against doing an LP and his previous visit with the altered mental status and fever as he is on Plavix and aspirin due to that we will not do an LP here in the emergency department and can have him follow-up with neurology if they recommend 1 L for possible meningitis. We did give him the 2 g of cefepime for better blood brain barrier penetration to treat his meningitis in case that is what this is going on. It was difficult to get an NIH score on him due to his altered mental status. So what is not documented at this time. As he was not fully responsive but he was alert and able to answer all questions. And he does have chronic right-sided weakness from previous CVA. Patient will be admitted to the hospital service for further evaluation. Did order him 3 full liters of IV fluids. Due to the difficulty getting IV access were unable to meet the time threshold to get the IV fluids and as well as start antibiotics. Although his lactate and white count were negative. Patient is not in severe sepsis or septic shock at this time. Patient did have CTs of the head and neck as well as the chest. Chest CT did show multifocal pneumonia. Did give him antibiotics already. CT had neck had no acute findings. I spoke with the hospitalist Dr. Bonilla who agreed to admit the patient to their service. Patient is admitted in stable condition. Head CT 10/20/18 19:58 IMPRESSION: No acute intracranial abnormality. Redemonstration of small pontine infarct on the left. Mild chronic small vessel white matter ischemic changes. Findings were discussed with Petr Goldberg DO at 8:17 pm on 10/20/2018. D/ / Jamil Salgado MD / Jamil Salgado MD Interpreting Provider: Jamil Salgado MD Chest X-Ray 10/20/18 20:19 IMPRESSION: Bilateral perihilar opacities may represent atelectasis. Pneumonia is a differential consideration. D/ / Berlin Mason MD / Berlin Mason MD Interpreting Provider: Berlin Mason MD Chest CTA 10/21/18 00:00 IMPRESSION: Patient respiratory motion artifact limited exam without definite evidence for pulmonary embolism as above. Dense consolidations bilateral lower lobes, left more than right, along with some smaller more patchy areas of consolidation to the superior segments of the bilateral lower lobes as well as posteriorly to the left upper lobe. Findings may be on the basis of atelectasis, multifocal pneumonia and/or aspiration pneumonitis or some combination thereof. Clinical correlation and continued follow-up recommended. Trace left pleural effusion. Stable cardiomegaly. Atherosclerosis to include coronary artery disease. Cholelithiasis. D/ / Devon Leblanc MD / Devon Leblanc MD Interpreting Provider: Devon Leblanc MD Head CTA 10/21/18 00:00 IMPRESSION: No large artery focal hemodynamically significant stenosis, occlusion or aneurysm in the head or neck. Heterogeneous opacities in the visualized lungs could represent atelectasis/scarring and/or an infectious/inflammatory process. D/ / Cole Sessions / Cole Sessions Interpreting Provider: Cole Brandon Neck CTA 10/21/18 00:00 IMPRESSION: No large artery focal hemodynamically significant stenosis, occlusion or aneurysm in the head or neck. Heterogeneous opacities in the visualized lungs could represent atelectasis/scarring and/or an infectious/inflammatory process. D/ / Cole Sessions / Cole Sessions Interpreting Provider: Cole Brandon - Medical Records Medical records reviewed: Yes I reviewed the patient's medical records. - Lab Data Lab results reviewed: Yes I reviewed the patient's lab results. Result diagrams: 10/22/18 04:58 10/22/18 04:58 Lab Results 10/20/18 10/20/18 10/20/18 Range/Units 19:50 19:50 19:50 WBC 11.1 (4.3-11.1) K/mcL RBC 3.01 L (4.19-5.50) M/mcL Hgb 9.9 L (12.9-16.9) g/dL Hct 31.0 L (37.5-50.1) % MCV 103.0 H (83.0-100.0) fL MCH 32.9 (28.0-33.3) pg MCHC 31.9 (31.6-35.5) g/dL RDW 13.4 (11.5-14.5) % Plt Count 305 (140-400) K/mcL MPV 9.7 (9.4-12.4) fL Immature Gran % 0.5 (0-4) % Seg Neutrophils % 81.2 % Lymphocytes % 10.9 % Monocytes % 5.1 % Eosinophils % 2.1 % Basophils % 0.2 % Neutrophils # 9.0 H (1.6-8.9) K/mcL Lymphocytes # 1.2 (0.6-4.6) K/mcL Monocytes # 0.6 (0.0-1.3) K/mcL Eosinophils # 0.2 (0.0-0.6) K/mcL Basophils # 0.0 (0.0-0.2) K/mcL PT 12.0 (9.4-12.1) Seconds INR 1.1 APTT 29.7 (26.0-36.0) Seconds Sodium 142 (136-145) mEq/L Potassium 5.3 H (3.5-5.1) mEq/L Chloride 103 (98-107) mEq/L Carbon Dioxide 23 (23-29) mEq/L BUN 55 H (8-23) mg/dL Creatinine 5.73 H (0.70-1.30) mg/dL Est GFR ( Amer) 12 L (> 60) Est GFR (Non-Af Amer) 10 L (> 60) BUN/Creatinine Ratio 10 (6-26) Glucose 78 (70-105) mg/dL Calculated Osmolality 308 H (280-300) Lactic Acid (0.5-2.2) mmol/L Calcium 9.3 (8.6-10.3) mg/dL Phosphorus (2.7-4.5) mg/dL Magnesium (1.6-2.6) mg/dL Total Bilirubin (0.3-1.0) mg/dL Direct Bilirubin (0.0-0.2) mg/dL Indirect Bilirubin (0.0-1.2) mg/dL AST (13-39) Units/L ALT (7-52) Units/L Alkaline Phosphatase (34-104) Units/L Troponin I < 0.03 (< 0.04) ng/mL Serum Total Protein (6.4-8.9) g/dL Albumin (3.5-5.7) g/dL Globulin (2.4-3.5) g/dL Albumin/Globulin Ratio (1.1-2.2) Urine Color (Yellow) Urine Clarity (Clear) Urine pH (5.0-8.0) pH Units Ur Specific [place] (1.010-1.025) Urine Protein (Neg-Trace) mg/dL Urine Glucose (UA) (Normal) mg/dL Urine Ketones (Negative) mg/dL Urine Blood (Negative) Urine Nitrite (Negative) Urine Bilirubin (Negative) Urine Urobilinogen (Normal) mg/dL Ur Leukocyte Esterase (Negative) Urine Microscopic RBC (0-3) per hpf Urine Microscopic WBC (0-3) per hpf Ur Squamous Epith Cells (None-Few) per lpf Urine Bacteria (None-Few) per hpf Hyaline Casts (None-Few) per lpf Ur Culture Indicated? (NO) 10/20/18 10/20/18 10/20/18 Range/Units 19:50 19:58 23:16 WBC (4.3-11.1) K/mcL RBC (4.19-5.50) M/mcL Hgb (12.9-16.9) g/dL Hct (37.5-50.1) % MCV (83.0-100.0) fL MCH (28.0-33.3) pg MCHC (31.6-35.5) g/dL RDW (11.5-14.5) % Plt Count (140-400) K/mcL MPV (9.4-12.4) fL Immature Gran % (0-4) % Seg Neutrophils % % Lymphocytes % % Monocytes % % Eosinophils % % Basophils % % Neutrophils # (1.6-8.9) K/mcL Lymphocytes # (0.6-4.6) K/mcL Monocytes # (0.0-1.3) K/mcL Eosinophils # (0.0-0.6) K/mcL Basophils # (0.0-0.2) K/mcL PT (9.4-12.1) Seconds INR APTT (26.0-36.0) Seconds Sodium (136-145) mEq/L Potassium (3.5-5.1) mEq/L Chloride (98-107) mEq/L Carbon Dioxide (23-29) mEq/L BUN (8-23) mg/dL Creatinine (0.70-1.30) mg/dL Est GFR ( Amer) (> 60) Est GFR (Non-Af Amer) (> 60) BUN/Creatinine Ratio (6-26) Glucose (70-105) mg/dL Calculated Osmolality (280-300) Lactic Acid 0.9 0.7 (0.5-2.2) mmol/L Calcium (8.6-10.3) mg/dL Phosphorus 6.2 H (2.7-4.5) mg/dL Magnesium 2.4 (1.6-2.6) mg/dL Total Bilirubin 0.3 (0.3-1.0) mg/dL Direct Bilirubin 0.1 (0.0-0.2) mg/dL Indirect Bilirubin 0.2 (0.0-1.2) mg/dL AST 9 L (13-39) Units/L ALT < 3 L (7-52) Units/L Alkaline Phosphatase 53 (34-104) Units/L Troponin I (< 0.04) ng/mL Serum Total Protein 6.9 (6.4-8.9) g/dL Albumin 3.6 (3.5-5.7) g/dL Globulin 3.3 (2.4-3.5) g/dL Albumin/Globulin Ratio 1.1 (1.1-2.2) Urine Color (Yellow) Urine Clarity (Clear) Urine pH (5.0-8.0) pH Units Ur Specific Aurora (1.010-1.025) Urine Protein (Neg-Trace) mg/dL Urine Glucose (UA) (Normal) mg/dL Urine Ketones (Negative) mg/dL Urine Blood (Negative) Urine Nitrite (Negative) Urine Bilirubin (Negative) Urine Urobilinogen (Normal) mg/dL Ur Leukocyte Esterase (Negative) Urine Microscopic RBC (0-3) per hpf Urine Microscopic WBC (0-3) per hpf Ur Squamous Epith Cells (None-Few) per lpf Urine Bacteria (None-Few) per hpf Hyaline Casts (None-Few) per lpf Ur Culture Indicated? (NO) 10/20/18 Range/Units Unknown WBC (4.3-11.1) K/mcL RBC (4.19-5.50) M/mcL Hgb (12.9-16.9) g/dL Hct (37.5-50.1) % MCV (83.0-100.0) fL MCH (28.0-33.3) pg MCHC (31.6-35.5) g/dL RDW (11.5-14.5) % Plt Count (140-400) K/mcL MPV (9.4-12.4) fL Immature Gran % (0-4) % Seg Neutrophils % % Lymphocytes % % Monocytes % % Eosinophils % % Basophils % % Neutrophils # (1.6-8.9) K/mcL Lymphocytes # (0.6-4.6) K/mcL Monocytes # (0.0-1.3) K/mcL Eosinophils # (0.0-0.6) K/mcL Basophils # (0.0-0.2) K/mcL PT (9.4-12.1) Seconds INR APTT (26.0-36.0) Seconds Sodium (136-145) mEq/L Potassium (3.5-5.1) mEq/L Chloride (98-107) mEq/L Carbon Dioxide (23-29) mEq/L BUN (8-23) mg/dL Creatinine (0.70-1.30) mg/dL Est GFR ( Amer) (> 60) Est GFR (Non-Af Amer) (> 60) BUN/Creatinine Ratio (6-26) Glucose (70-105) mg/dL Calculated Osmolality (280-300) Lactic Acid (0.5-2.2) mmol/L Calcium (8.6-10.3) mg/dL Phosphorus (2.7-4.5) mg/dL Magnesium (1.6-2.6) mg/dL Total Bilirubin (0.3-1.0) mg/dL Direct Bilirubin (0.0-0.2) mg/dL Indirect Bilirubin (0.0-1.2) mg/dL AST (13-39) Units/L ALT (7-52) Units/L Alkaline Phosphatase (34-104) Units/L Troponin I (< 0.04) ng/mL Serum Total Protein (6.4-8.9) g/dL Albumin (3.5-5.7) g/dL Globulin (2.4-3.5) g/dL Albumin/Globulin Ratio (1.1-2.2) Urine Color Yellow (Yellow) Urine Clarity Clear (Clear) Urine pH 6.5 (5.0-8.0) pH Units Ur Specific [place] 1.010 (1.010-1.025) Urine Protein 100 H (Neg-Trace) mg/dL Urine Glucose (UA) >=1000 H (Normal) mg/dL Urine Ketones Negative (Negative) mg/dL Urine Blood Negative (Negative) Urine Nitrite Negative (Negative) Urine Bilirubin Negative (Negative) Urine Urobilinogen Normal (Normal) mg/dL Ur Leukocyte Esterase Negative (Negative) Urine Microscopic RBC 5-15 H (0-3) per hpf Urine Microscopic WBC 0-3 (0-3) per hpf Ur Squamous Epith Cells Moderate H (None-Few) per lpf Urine Bacteria None Seen (None-Few) per hpf Hyaline Casts None Seen (None-Few) per lpf Ur Culture Indicated? NO (NO) - Radiology Data Radiology results reviewed: Yes I reviewed the patient's radiology results. - EKG Data EKG attestation: Yes I reviewed and interpreted this EKG. EKG results narrative: EKG done at 2006 review myself and attending shows sinus tachycardia rate of 101, OK interval 156, QRS 118, QTC 43. There is no acute ST changes no acute T- wave changes nor signs of ischemia. No signs of hypertrophy, heart strain, heart block. No WPW/Brugada/HOCM. EKG is unchanged based on old EKG done on TPA Checklist - LKW: 3-4.5 hrs Add. Warnings/Precautions Patient/family understanding: The patient/family members have been counseled and understood the risk, benefit, and alternatives of treatment. Attestation Statement - Attestation Attestation: I have seen this patient with the resident physician, I have personally evaluated this patient. I had reviewed the chart and document dictation by the resident physician and aM in agreement with the information documented by the resident physician. Please see documentation by the resident physician for complete chart including past medical history, family medical history, review of systems, current history and physical and laboratory and imaging studies. I was present for all procedures, provided direct supervision for all procedures, was present for the entirety of all procedures and provided direct guidance during the procedures. Please see documentation by the resident physician for any procedures performed. I have reviewed all interpretations of EKGs, and reviewed all EKGs performed on patient's as well. I have also reviewed reports of imaging as provided by radiology. Sepsis Event Note - Evaluation Current Stage of Suspected Sepsis: sepsis Possible Source of Sepsis: unknown - Focused Exam Date of Encounter: 10/21/18 Time of Encounter: 08:00 Respiratory Exam: Present: wheezes, rales, rhonchi Cardiovascular Exam: Present: tachycardia Capillary Refill: < 2 seconds Peripheral Pulse Strength: 3+ normal Peripheral Pulse Location: Radial Skin Exam: normal turgor - Bedside Monitoring Bedside Ultrasound Performed: No Passive Leg raise/fluid bolus: not performed
--- NOTE | 2018-10-20 23:57 | Emergency Department Note ---
Disposition Clinical Impression: SIRS (systemic inflammatory response syndrome), Hypoxia, Weakness Hypotension Qualifiers: Hypotension type: unspecified hypotension type Qualified Code(s): I95.9 - Hypotension, unspecified Disposition: Still a Patient Referrals: Raoul Gaona DO [Primary Care Provider] - Forms: ED Satisfaction Letter Time of Disposition: 23:58 General Adult HPI - General Chief complaint: ED Neuro Symptoms/Deficit Stated complaint: possible stroke Time Seen by Provider: 10/20/18 19:58 Source: EMS Mode of arrival: EMS Limitations: altered mental status - History of Present Illness Pain Scale: 0 - Related Data Home Medications Medication Instructions Recorded Confirmed Clopidogrel [Plavix] 75 mg PO DAILY 01/02/17 10/20/18 Finasteride [Proscar] 5 mg PO DAILY 01/02/17 10/20/18 Fluticasone Propionate Nasal 100 mcg NS DAILY PRN 01/02/17 10/20/18 [Flonase] Nitroglycerin [Nitrostat] 0.4 mg SL Q5MIN PRN 01/02/17 10/20/18 carBAMazepine [Tegretol] 200 mg PO TID 01/02/17 10/20/18 Omeprazole [PriLOSEC] 40 mg PO DAILY 01/21/17 10/20/18 Calcitriol [Rocaltrol] 0.25 mcg PO DAILY 10/04/18 10/20/18 Calcium Acetate [Phos-LO] 1,334 mg PO TIDWM 10/04/18 10/20/18 Ergocalciferol (VITAMIN D2) 50,000 units PO WE 10/04/18 10/20/18 [Vitamin D2] Insulin Degludec [Tresiba 80 units SQ HS 10/04/18 10/20/18 Flextouch U-200] Isosorbide MONOnitrate (24 HR) 30 mg PO DAILY 10/04/18 10/20/18 [Imdur] Midodrine HCl 10 mg PO FIGUEROA 10/04/18 10/20/18 Rivastigmine Patch [Exelon] 9.5 mg TP DAILY 10/04/18 10/20/18 Atorvastatin Calcium [Lipitor] 80 mg PO HS 10/20/18 10/20/18 Carbidopa/Levodopa 1 each PO BID 10/20/18 10/20/18 [Carbidopa-Levodopa 25-100 Tab] Insulin LISPRO [HumaLOG] 0 units SQ TIDWM 10/20/18 10/20/18 Previous Rx's Medication Instructions Recorded Aspirin Enteric Coated [Aspirin EC] 81 mg PO DAILY #60 tablet. 10/12/18 Pregabalin [Lyrica] 100 mg PO BID 30 Days #60 capsule 10/13/18 Allergies Allergy/AdvReac Type Severity Reaction Status Date / Time No Known Allergies Allergy Verified 10/04/18 19:00 Past Medical History - Past Medical History Medical history: Reports: cancer, CVA, diabetes, glaucoma, hyperlipidemia, hypertension, renal disease, other Surgical history: Reports: angioplasty/stent, cataract, coronary bypass (CABG), orthopedic, other Psychiatric history: Reports: depression - Social History Smoking Status: Never smoker Smokeless Tobacco Status: No Alcohol use: Reports: none Drug use: Reports: none Physical Exam - General Limitations: altered mental status General appearance: alert Course Vital Signs Temperature 101.3 F H 10/20/18 19:52 Pulse Rate 101 10/20/18 19:52 Respiratory Rate 18 10/20/18 19:52 Blood Pressure 169/72 10/20/18 19:52 O2 Sat by Pulse Oximetry 90 10/20/18 19:52 Temperature 101.3 F H 10/20/18 19:52 Pulse Rate 101 10/20/18 21:08 Respiratory Rate 20 10/20/18 21:08 Blood Pressure 128/68 10/20/18 21:08 O2 Sat by Pulse Oximetry 96 10/20/18 21:08 Oxygen Delivery Oxygen Delivery Room Air Medical Decision Making - Lab Data Result diagrams: 10/20/18 19:50 10/20/18 19:50 Lab Results 10/20/18 10/20/18 10/20/18 Range/Units 19:50 19:50 19:50 WBC 11.1 (4.3-11.1) K/mcL RBC 3.01 L (4.19-5.50) M/mcL Hgb 9.9 L (12.9-16.9) g/dL Hct 31.0 L (37.5-50.1) % MCV 103.0 H (83.0-100.0) fL MCH 32.9 (28.0-33.3) pg MCHC 31.9 (31.6-35.5) g/dL RDW 13.4 (11.5-14.5) % Plt Count 305 (140-400) K/mcL MPV 9.7 (9.4-12.4) fL Immature Gran % 0.5 (0-4) % Seg Neutrophils % 81.2 % Lymphocytes % 10.9 % Monocytes % 5.1 % Eosinophils % 2.1 % Basophils % 0.2 % Neutrophils # 9.0 H (1.6-8.9) K/mcL Lymphocytes # 1.2 (0.6-4.6) K/mcL Monocytes # 0.6 (0.0-1.3) K/mcL Eosinophils # 0.2 (0.0-0.6) K/mcL Basophils # 0.0 (0.0-0.2) K/mcL PT 12.0 (9.4-12.1) Seconds INR 1.1 APTT 29.7 (26.0-36.0) Seconds Sodium 142 (136-145) mEq/L Potassium 5.3 H (3.5-5.1) mEq/L Chloride 103 (98-107) mEq/L Carbon Dioxide 23 (23-29) mEq/L BUN 55 H (8-23) mg/dL Creatinine 5.73 H (0.70-1.30) mg/dL Est GFR ( Amer) 12 L (> 60) Est GFR (Non-Af Amer) 10 L (> 60) BUN/Creatinine Ratio 10 (6-26) Glucose 78 (70-105) mg/dL Calculated Osmolality 308 H (280-300) Lactic Acid (0.5-2.2) mmol/L Calcium 9.3 (8.6-10.3) mg/dL Phosphorus (2.7-4.5) mg/dL Magnesium (1.6-2.6) mg/dL Total Bilirubin (0.3-1.0) mg/dL Direct Bilirubin (0.0-0.2) mg/dL Indirect Bilirubin (0.0-1.2) mg/dL AST (13-39) Units/L ALT (7-52) Units/L Alkaline Phosphatase (34-104) Units/L Troponin I < 0.03 (< 0.04) ng/mL Serum Total Protein (6.4-8.9) g/dL Albumin (3.5-5.7) g/dL Globulin (2.4-3.5) g/dL Albumin/Globulin Ratio (1.1-2.2) Urine Color (Yellow) Urine Clarity (Clear) Urine pH (5.0-8.0) pH Units Ur Specific [place] (1.010-1.025) Urine Protein (Neg-Trace) mg/dL Urine Glucose (UA) (Normal) mg/dL Urine Ketones (Negative) mg/dL Urine Blood (Negative) Urine Nitrite (Negative) Urine Bilirubin (Negative) Urine Urobilinogen (Normal) mg/dL Ur Leukocyte Esterase (Negative) Urine Microscopic RBC (0-3) per hpf Urine Microscopic WBC (0-3) per hpf Ur Squamous Epith Cells (None-Few) per lpf Urine Bacteria (None-Few) per hpf Hyaline Casts (None-Few) per lpf Ur Culture Indicated? (NO) 10/20/18 10/20/18 10/20/18 Range/Units 19:50 19:58 Unknown WBC (4.3-11.1) K/mcL RBC (4.19-5.50) M/mcL Hgb (12.9-16.9) g/dL Hct (37.5-50.1) % MCV (83.0-100.0) fL MCH (28.0-33.3) pg MCHC (31.6-35.5) g/dL RDW (11.5-14.5) % Plt Count (140-400) K/mcL MPV (9.4-12.4) fL Immature Gran % (0-4) % Seg Neutrophils % % Lymphocytes % % Monocytes % % Eosinophils % % Basophils % % Neutrophils # (1.6-8.9) K/mcL Lymphocytes # (0.6-4.6) K/mcL Monocytes # (0.0-1.3) K/mcL Eosinophils # (0.0-0.6) K/mcL Basophils # (0.0-0.2) K/mcL PT (9.4-12.1) Seconds INR APTT (26.0-36.0) Seconds Sodium (136-145) mEq/L Potassium (3.5-5.1) mEq/L Chloride (98-107) mEq/L Carbon Dioxide (23-29) mEq/L BUN (8-23) mg/dL Creatinine (0.70-1.30) mg/dL Est GFR ( Amer) (> 60) Est GFR (Non-Af Amer) (> 60) BUN/Creatinine Ratio (6-26) Glucose (70-105) mg/dL Calculated Osmolality (280-300) Lactic Acid 0.9 (0.5-2.2) mmol/L Calcium (8.6-10.3) mg/dL Phosphorus 6.2 H (2.7-4.5) mg/dL Magnesium 2.4 (1.6-2.6) mg/dL Total Bilirubin 0.3 (0.3-1.0) mg/dL Direct Bilirubin 0.1 (0.0-0.2) mg/dL Indirect Bilirubin 0.2 (0.0-1.2) mg/dL AST 9 L (13-39) Units/L ALT < 3 L (7-52) Units/L Alkaline Phosphatase 53 (34-104) Units/L Troponin I (< 0.04) ng/mL Serum Total Protein 6.9 (6.4-8.9) g/dL Albumin 3.6 (3.5-5.7) g/dL Globulin 3.3 (2.4-3.5) g/dL Albumin/Globulin Ratio 1.1 (1.1-2.2) Urine Color Yellow (Yellow) Urine Clarity Clear (Clear) Urine pH 6.5 (5.0-8.0) pH Units Ur Specific [place] 1.010 (1.010-1.025) Urine Protein 100 H (Neg-Trace) mg/dL Urine Glucose (UA) >=1000 H (Normal) mg/dL Urine Ketones Negative (Negative) mg/dL Urine Blood Negative (Negative) Urine Nitrite Negative (Negative) Urine Bilirubin Negative (Negative) Urine Urobilinogen Normal (Normal) mg/dL Ur Leukocyte Esterase Negative (Negative) Urine Microscopic RBC 5-15 H (0-3) per hpf Urine Microscopic WBC 0-3 (0-3) per hpf Ur Squamous Epith Cells Moderate H (None-Few) per lpf Urine Bacteria None Seen (None-Few) per hpf Hyaline Casts None Seen (None-Few) per lpf Ur Culture Indicated? NO (NO) Attestation Statement - Attestation Attestation: I have seen this patient with the resident physician, I have personally evaluated this patient. I had reviewed the chart and document dictation by the resident physician and aM in agreement with the information documented by the resident physician. Please see documentation by the resident physician for complete chart including past medical history, family medical history, review of systems, current history and physical and laboratory and imaging studies. I was present for all procedures, provided direct supervision for all procedures, was present for the entirety of all procedures and provided direct guidance during the procedures. Please see documentation by the resident physician for any procedures performed. I have reviewed all interpretations of EKGs, and reviewed all EKGs performed on patient's as well. I have also reviewed reports of imaging as provided by radiology. Patient presented emergency department with evaluation concerns for potential stroke, apparently a few hours prior to arrival he started having left-sided weakness has chronic right-sided weakness from prior strokes, but they noticed speech difficulty, and left sided findings starting approximately 3 hours prior to arrival in the emergency department. Upon presentation, the patient is a very poor historian and difficult to assess, he questionably has a little bit of left-sided facial droop which she seems to be a little over come. He does have right arm and leg weakness which is chronic, seems to have some mild left upper and left lower extremity weakness as well but right side seems worse than left, the family reports that he just seems more altered confused and lethargic as well. He was found to have findings suggestive of systemic inflammatory response syndrome with fever tachycardia, also hypoxia. He required a couple liters by nasal cannula. Stroke alert was initiated, stroke neurologist was consulted who evaluated the patient by telecommunication he is in agreement that this is less likely a stroke and more likely systemic based related potential sepsis or infection, he did recommend a CT angiogram. Blood cultures were ordered sepsis orders were placed he was ordered fluids and antibiotics. He does have a right anterior chest wall Tesio catheter for dialysis, multiple attempts were made to try and place peripheral lines including by ultrasound, including ultrasound-guided external jugular by myself and the resident physician without success, at which time a central venous catheter was placed as he had no other peripheral access. Please see separate document dictation for procedure. Secondary to patient's hypoxia tachycardia low-grade fever, without leukocytosis without lactic acidosis, with a chest x-ray that did not 100% demonstrate evidence for pneumonia CT scan of the chest was also ordered. I reviewed the patient's chart he was just admitted to the hospital within the last 2 weeks for evaluation of very similar event, he was febrile at that time and confused, neurology was consult at, he had rapid improvement over 24 hours, and his fever and confusion with IV antibiotics and they recommended no lumbar puncture at that time especially with the patient being on aspirin and Plavix a nd increased risk of bleeding, no source was ever obviously determined had reviewed his chart. He was on ampicillin Rocephin and make a Misener at that time, discussed with pharmacy considerations of antibiotic choice at this time the recommended cefepime and vancomycin and Levaquin which was ordered. We initiated these antibiotics. Patient will be admitted to the hospital for further evaluation and management of systemic inflammatory response syndrome, hypoxia, confusion, possible stroke, he did have an MRI on October 04 that demonstrated an acute pontine infarct, he does not meet TPA criteria at this time per stroke neurology, and just had a stroke within the last 3 weeks making increased risk of bleeding from TPA. Patient will be admitted for further evaluation management. No indication for lumbar puncture here in the emergency department, as it was recommended to not do a lumbar puncture by neurology last time during his admission, he is on aspirin and on Plavix and has been on antibiotics within the last week, we will initiate antibiotic therapy he seemed to deny headache or ne ck pain here but is a poor historian, he will be admitted with considerations of possible lumbar puncture as an inpatient under fluoroscopy should it felt to be indicated by consultants as an inpatient. Total critical care time as provided by myself excluding any procedures performed was 65 minutes
[2018-10-21] MEDS: 0.9 % Sodium Chloride 1,000 ML IVC SCH ×2 (01:23→04:44)
[2018-10-21] MEDS: Isovue-370 500 ML BOTTLE IVP ONE (01:29)
[2018-10-21] MEDS ORDERED: Azithromycin 500 MG in D5% in Water 250 ML IVPB ONE (03:27)
[2018-10-21] MEDS ORDERED: *HR* Heparin 5,000 UNIT/ML VIAL IVP PRN ×2 (03:29)
[2018-10-21] MEDS ORDERED: *HR* Heparin 5,000 UNIT/ML VIAL IVP ONE (03:29)
[2018-10-21] MEDS ORDERED: Heparin 25,000 UNIT/250 ML D5W 25,000 UNIT/250 ML IV.SOLN IVC SCH (03:30)
[2018-10-21] MEDS ORDERED: Naloxone 0.4 MG/ML INJ IVP PRN (06:34)
--- NOTE | 2018-10-21 06:45 | Internal Med History&Physical ---
Date of Encounter: 10/21/18 Time of Encounter: 06:23 Internal Medicine - H&P: HPI Chief complaint: Left sided weakness Admitted From: Emergency Dept Plans for Post Hospital Care: Home History of present illness: Mr. Anguiano is a 73 year old male Patient presented to the emergency room from a skilled nursing for altered mental status. His history of right-sided CVA, and was recently admitted and discharged from the hospital about a week and half ago. He has been at the skilled nursing, does not remember exactly what happened but states that he has been having the shakes and he passed out. Around 6:30 according to ER records patient had altered mental status and left-sided weakness. He has been complaining of cough and congestion for the last few days. Family was concerned and had him brought to the emergency room for further evaluation. In the emergency room patient's initial temperature was 101.3, pulse 101 blood pressure 169/72. CBC: White count 11.1, hemoglobin 9.9 (baseline) BMP: Sodium 142, potassium 5.3, findings consistent with end-stage renal disease, glucose 78. Initial lactic acid 0.9 Initial troponin undetectable Phosphorus 6.2 Urinalysis showed greater than 1000 glucose 1 negative for infection Head CT: No acute intracranial abnormality Chest x-ray showed bilateral opacities Chest CT angiogram showed dense consolidations in the bilateral lower lobes left more than right CT angiogram of head and neck showed no large artery focal hemodynamically significant stenosis occlusion or aneurysm When patient arrived almost stroke alert was called. The ER spoke with [facility] neurology, they suspected his presentation most likely related to sepsis and less likely stroke. Patient is an end-stage dialysis patient. Due to inability to obtain IV access a femoral central venous catheter was placed. Blood cultures were drawn and patient was started on cefepime, Levaquin and vancomycin. He also received 3 L of IV fluids. He is admitted to the hospital for further management. Upon my evaluation, patient is resting comfortably in hospital bed in no acute distress. He denies chest pain, abdominal pain, nausea, vomiting, diarrhea and constipation. He is oriented to self, place, date and situation. He states that he feels that his symptoms have improved since his arrival. His significant family history of heart disease on his father's side and his mother had kidney failure. Patient is an end-stage renal disease patient, and gets dialysis on Sunday, and Sunday. He is a full code. Past Med Surg Social Fam HX - Past Medical History Medical history: cancer, CVA, diabetes, glaucoma, hyperlipidemia, hypertension, renal disease, other Additional medical history: skin cancer, parkinson Psychiatric history: depression - Past Surgical History Surgical History: angioplasty/stent, cataract, coronary bypass (CABG), ortho pedic, other Additional surgical history: left foot surgery, cardiac stents x9, skin cancer removed, back surgery, - Social History Smoking Status: Never smoker Smokeless Tobacco Status: No Alcohol use: none Drug use: none - Family History Father History Unknown: Yes Living Status: Hx Family Cardiac Disorders: Yes Mother History Unknown: Yes Adopted: No Living Status: Hx Family Cardiac Disorders: Yes Hx Family Cancer: Yes (liver cancer) Internal Medicine - H&P: Meds Clopidogrel [Plavix] 75 mg PO DAILY 01/02/17 [History] Finasteride [Proscar] 5 mg PO DAILY 01/02/17 [History] Fluticasone Propionate Nasal [Flonase] 100 mcg NS DAILY PRN 01/02/17 [History] Nitroglycerin [Nitrostat] 0.4 mg SL Q5MIN PRN 01/02/17 [History] carBAMazepine [Tegretol] 200 mg PO TID 01/02/17 [History] Omeprazole [PriLOSEC] 40 mg PO DAILY 01/21/17 [History] Calcitriol [Rocaltrol] 0.25 mcg PO DAILY 10/04/18 [History] Calcium Acetate [Phos-LO] 1,334 mg PO TIDWM 10/04/18 [History] Ergocalciferol (VITAMIN D2) [Vitamin D2] 50,000 units PO WE 10/04/18 [History] Insulin Degludec [Tresiba Flextouch U-200] 80 units SQ HS 10/04/18 [History] Isosorbide MONOnitrate (24 HR) [Imdur] 30 mg PO DAILY 10/04/18 [History] Midodrine HCl 10 mg PO FIGUEROA 10/04/18 [History] Rivastigmine Patch [Exelon] 9.5 mg TP DAILY 10/04/18 [History] Aspirin Enteric Coated [Aspirin EC] 81 mg PO DAILY #60 tablet. 10/12/18 [Rx] Pregabalin [Lyrica] 100 mg PO BID 30 Days #60 capsule 10/13/18 [Rx] Atorvastatin Calcium [Lipitor] 80 mg PO HS 10/20/18 [History] Carbidopa/Levodopa [Carbidopa-Levodopa 25-100 Tab] 1 each PO BID 10/20/18 [History] Insulin LISPRO [HumaLOG] 0 units SQ TIDWM 10/20/18 [History] Allergy/AdvReac Type Severity Reaction Status Date / Time No Known Allergies Allergy Verified 10/04/18 19:00 All Systems PM: A 10-system review of systems was performed and is negative for pertinent findings except as documented above in the HPI. - Constitutional Vitals: Temp Pulse Resp BP Pulse Ox 99.1 F 87 15 136/69 99 10/21/18 03:33 10/21/18 03:33 10/21/18 03:33 10/21/18 03:33 10/21/18 03:33 General appearance: Present: cooperative, A&O X 3, pleasant, no acute distress, answers questions appropriately Exam: - - Head Head exam: Present: normal inspection - Eye Eye exam: Present: EOMI, normal appearance - Neck Neck exam general surgery: Present: full ROM - Respiratory Respiratory exam: Present: CTAB. Absent: rales, respiratory distress, rhonchi, wheezes - Cardiovascular Cardiovascular exam: Present: RRR. Absent: diastolic murmur, systolic murmur - GI/Abdominal GI/Abdominal exam: Present: normal bowel sounds, soft - Extremities Exam Extremities exam: Present: warm, radial pulses palpable and symmetrical. Absent: calf tenderness, pedal edema, tenderness - Neurological Exam Neurological exam: Present: motor sensory deficit, facial droop. Absent: no focal deficits, strengths equal and symetr throughout, speech deficit Additional comments: Left sided facial droop Left and right sided weakness, right more than left. - Skin Skin exam: Present: dry, normal color, warm Internal Med - H&P Results - Labs CBC & Chem 7: 10/20/18 19:50 10/20/18 19:50 Labs: Short CBC 10/20/18 Range/Units 19:50 WBC 11.1 (4.3-11.1) K/mcL Hgb 9.9 L (12.9-16.9) g/dL Hct 31.0 L (37.5-50.1) % Plt Count 305 (140-400) K/mcL Neutrophils # 9.0 H (1.6-8.9) K/mcL BMP 10/20/18 19:50 Sodium 142 Potassium 5.3 H Chloride 103 Carbon Dioxide 23 BUN 55 H Creatinine 5.73 H Glucose 78 Calcium 9.3 Cardiac Enzymes 10/20/18 Range/Units 19:50 Troponin I < 0.03 (< 0.04) ng/mL Liver Function 10/20/18 Range/Units 19:50 Total Bilirubin 0.3 (0.3-1.0) mg/dL Direct Bilirubin 0.1 (0.0-0.2) mg/dL AST 9 L (13-39) Units/L ALT < 3 L (7-52) Units/L Alkaline Phosphatase 53 (34-104) Units/L Albumin 3.6 (3.5-5.7) g/dL Urine 10/20/18 Range/Units Unknown Urine Color Yellow (Yellow) Urine Clarity Clear (Clear) Urine pH 6.5 (5.0-8.0) pH Units Ur Specific [place] 1.010 (1.010-1.025) Urine Protein 100 H (Neg-Trace) mg/dL Urine Glucose (UA) >=1000 H (Normal) mg/dL - Impressions ITS Impressions Head CT 10/20/18 19:58 IMPRESSION: No acute intracranial abnormality. Redemonstration of small pontine infarct on the left. Mild chronic small vessel white matter ischemic changes. Findings were discussed with Petr Goldberg DO at 8:17 pm on 10/20/2018. D/ / Jamil Salgado MD / Jamil Salgado MD Interpreting Provider: Jamil Salgado MD Chest X-Ray 10/20/18 20:19 IMPRESSION: Bilateral perihilar opacities may represent atelectasis. Pneumonia is a differential consideration. D/ / Berlin Mason MD / Berlin Mason MD Interpreting Provider: Berlin Mason MD Chest CTA 10/21/18 00:00 IMPRESSION: Patient respiratory motion artifact limited exam without definite evidence for pulmonary embolism as above. Dense consolidations bilateral lower lobes, left more than right, along with some smaller more patchy areas of consolidation to the superior segments of the bilateral lower lobes as well as posteriorly to the left upper lobe. Findings may be on the basis of atelectasis, multifocal pneumonia and/or aspiration pneumonitis or some combination thereof. Clinical correlation and continued follow-up recommended. Trace left pleural effusion. Stable cardiomegaly. Atherosclerosis to include coronary artery disease. Cholelithiasis. D/ / Devon Leblanc MD / Devon Leblanc MD Interpreting Provider: Devon Leblanc MD Head CTA 10/21/18 00:00 IMPRESSION: No large artery focal hemodynamically significant stenosis, occlusion or aneurysm in the head or neck. Heterogeneous opacities in the visualized lungs could represent atelectasis/scarring and/or an infectious/inflammatory process. D/ / Cole Sessions / Cole Sessions Interpreting Provider: Cole Sessions Neck CTA 10/21/18 00:00 IMPRESSION: No large artery focal hemodynamically significant stenosis, occlusion or aneurysm in the head or neck. Heterogeneous opacities in the visualized lungs could represent atelectasis/scarring and/or an infectious/inflammatory process. D/ / Cole Sessions / Cole Sessions Interpreting Provider: Cole Sessions - Assessment and Plan (1) Altered mental status Current Visit: Yes Status: Acute Assessment and plan: Now improved, patient fully oriented on my exam. Imaging thus far negative for acute abnormality. Will continue to monitor Neurology consult later today. MRI brain today Qualifiers: Altered mental status type: unspecified Qualified Code(s): R41.82 - Altered mental status, unspecified (2) Multifocal pneumonia Current Visit: Yes Status: Acute Assessment and plan: As seen on imaging. Blood cultures drawn. Patient started on cefepime, vanco and levaquin Continue IV antibiotics. Follow up blood cultures. Monitor for worsening signs of infection. (3) Stroke-like symptom Current Visit: Yes Status: Acute Assessment and plan: New left sided weakness and dysphagia. Patient also had altered mental status. PT/OT consult speech therapy Neurology consult MRI in the AM (4) Diabetes mellitus Current Visit: No Status: Chronic Assessment and plan: Patient is an insulin dependent diabetic Monitor sugars Q6H NPO until evaluated by speech and swallow therapy Low dose insulin sliding scale as needed Hold home meds. 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 Patient failed dysphasia screen which he says is new since his last stroke. PT/OT consult Speech therapy consult Neurology consult Qualifiers: CVA mechanism: unspecified Qualified Code(s): I63.9 - Cerebral infarction, unspecified (7) DVT prophylaxis Current Visit: No Status: Acute Assessment and plan: Subcutaneous heparin - Time Spent With Patient Total time spent is greater than 50% in coordination of care (as documented) at patient's floor/unit and/or counseling patient: Greater than 35 minutes
[2018-10-21] MEDS ORDERED: D5% in Water 1,000 ML IVC PRN (07:19)
[2018-10-21] MEDS ORDERED: Dextrose Gel 15 GM/37.5 ML TUBE PO PRN ×2 (07:19)
[2018-10-21] MEDS ORDERED: *HR* Dextrose 50 % in Water (Syg) 50 ML SYRINGE IVP PRN (07:19)
[2018-10-21] MEDS ORDERED: Fluticasone Propionate Nasal 50 MCG/SPRAY BOTTLE NS PRN (07:59)
[2018-10-21] MEDS ORDERED: Cefepime HCl 2,000 MG in Water for inj. (sterile) 20 ML 20 ML IVP SCH (08:00)
[2018-10-21] MEDS: carBAMazepine 200 MG TABLET PO SCH ×3 (08:53→20:19)
--- NOTE | 2018-10-21 08:53 | Internal Med Progress Note ---
<Sloane Arzola - Last Filed: 10/21/18 17:30> Hospitalist Progress Note - Encounter Date of Encounter: 10/21/18 - Exam Vitals: Temp Pulse Resp BP Pulse Ox 97.9 F 88 16 139/62 97 10/21/18 06:41 10/21/18 06:41 10/21/18 06:41 10/21/18 06:41 10/21/18 06:41 - Assessment and Plan (1) Diabetes mellitus Current Visit: No Status: Chronic (2) DVT prophylaxis Current Visit: No Status: Acute (3) CVA (cerebral vascular accident) Current Visit: No Status: Suspected (4) ESRD on dialysis Current Visit: No Status: Chronic (5) Multifocal pneumonia Current Visit: Yes Status: Acute (6) Stroke-like symptom Current Visit: Yes Status: Acute (7) Altered mental status Current Visit: Yes Status: Acute - Time Spent with Patient Total time spent is greater than 50% in coordination of care (as documented) at patient's floor/unit and/or counseling patient: Internal Medicine: Result - Labs CBC & Chem 7: 10/21/18 06:36 10/21/18 09:00 Labs: Short CBC 10/20/18 10/21/18 Range/Units 19:50 06:36 WBC 11.1 8.7 (4.3-11.1) K/mcL Hgb 9.9 L 8.5 L (12.9-16.9) g/dL Hct 31.0 L 26.9 L (37.5-50.1) % Plt Count 305 259 (140-400) K/mcL Neutrophils # 9.0 H (1.6-8.9) K/mcL BMP 10/20/18 19:50 Sodium 142 Potassium 5.3 H Chloride 103 Carbon Dioxide 23 BUN 55 H Creatinine 5.73 H Glucose 78 Calcium 9.3 Cardiac Enzymes 10/20/18 Range/Units 19:50 Troponin I < 0.03 (< 0.04) ng/mL Liver Function 10/20/18 Range/Units 19:50 Total Bilirubin 0.3 (0.3-1.0) mg/dL Direct Bilirubin 0.1 (0.0-0.2) mg/dL AST 9 L (13-39) Units/L ALT < 3 L (7-52) Units/L Alkaline Phosphatase 53 (34-104) Units/L Albumin 3.6 (3.5-5.7) g/dL Urine 10/20/18 Range/Units Unknown Urine Color Yellow (Yellow) Urine Clarity Clear (Clear) Urine pH 6.5 (5.0-8.0) pH Units Ur Specific Marshall 1.010 (1.010-1.025) Urine Protein 100 H (Neg-Trace) mg/dL Urine Glucose (UA) >=1000 H (Normal) mg/dL - ABG Interpretation ABG results: PT/INR, D-dimer PT 12.0 Seconds (9.4-12.1) 10/20/18 19:50 - Impressions Impressions Head CT 10/20/18 19:58 IMPRESSION: No acute intracranial abnormality. Redemonstration of small pontine infarct on the left. Mild chronic small vessel white matter ischemic changes. Findings were discussed with Petr Goldberg DO at 8:17 pm on 10/20/2018. D/ / Jamil Salgado MD / Jamil Salgado MD Interpreting Provider: Jamil Salgado MD Chest X-Ray 10/20/18 20:19 IMPRESSION: Bilateral perihilar opacities may represent atelectasis. Pneumonia is a differential consideration. D/ / Berlin Mason MD / Berlin Mason MD Interpreting Provider: Berlin Mason MD Chest CTA 10/21/18 00:00 IMPRESSION: Patient respiratory motion artifact limited exam without definite evidence for pulmonary embolism as above. Dense consolidations bilateral lower lobes, left more than right, along with some smaller more patchy areas of consolidation to the superior segments of the bilateral lower lobes as well as posteriorly to the left upper lobe. Findings may be on the basis of atelectasis, multifocal pneumonia and/or aspiration pneumonitis or some combination thereof. Clinical correlation and continued follow-up recommended. Trace left pleural effusion. Stable cardiomegaly. Atherosclerosis to include coronary artery disease. Cholelithiasis. D/ / 10/21/2018 07:06:46 Devon Leblanc MD / shiva Interpreting Provider: Devon Leblanc MD Head CTA 10/21/18 00:00 IMPRESSION: No large artery focal hemodynamically significant stenosis, occlusion or aneurysm in the head or neck. Heterogeneous opacities in the visualized lungs could represent atelectasis/scarring and/or an infectious/inflammatory process. D/ / Cole Sessions / Cole Sessions Interpreting Provider: Cole Sessions Neck CTA 10/21/18 00:00 IMPRESSION: No large artery focal hemodynamically significant stenosis, occlusion or aneurysm in the head or neck. Heterogeneous opacities in the visualized lungs could represent atelectasis/scarring and/or an infectious/inflammatory process. D/ / Cole Sessions / Cole Sessions Interpreting Provider: Cole Sessions Consult Discharge Plan - Plan Referrals: Raoul Gaona DO [Primary Care Provider] - - Attending Attestation I examined this patient and my medical decision-making was reviewed with the Re sident Physician Dr Dee. I agree with the documented findings, disposition and treatment plan as described except to the extent set forth below. Mr Anguiano is admitted with sepsis 2/2 pneumonia and weakness awake, pleasant. He denies sob, wheezing. + cough but dry. denies fevers or chills. feels weakness is better. states was on right side. He has trouble qualifying his weakness he had yesterday and how he feels today. 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 Neuro updated. pt/ to discuss tonight and neuro will give recs with this in mind tomorrow. NO AC initiation, cont asa + plavix Hyperkalemia on admit 5.3- ekg reveiwed and much artifact with possible T wave changes- morning K+ is penidng and will repeat EKG, temporize as needed ESRD on HD- nephro consulted for HD continuation, given he received 3L fluids on admission, will monitor for overload HFrEF 35% 09/2018- stable, euvolemic Parkinsons- cont home meds further dx and plan as noted by resident <Ciara Dee - Last Filed: 10/22/18 00:04> Hospitalist Progress Note - Encounter Date of Encounter: 10/21/18 Time of Encounter: 09:00 - Subjective Interval History: Seen and examined this morning at bedside. IV access team also at bedside, just finishing EPIV placement. Pt doesn't appear to be in any acute distress. He denies fevers, chills, chest pain, nausea, vomiting, abdominal pain and endorses no complaints at this time. - Exam Vitals: Temp Pulse Resp BP Pulse Ox 97.9 F 88 16 139/62 97 10/21/18 06:41 10/21/18 06:41 10/21/18 06:41 10/21/18 06:41 10/21/18 06:41 Exam: General: vital signs noted, no acute distress, non-toxic appearance, AAO x3 Head: normocephalic, atraumatic Eyes: EOMI, PERRL, sclera anicteric ENT: moist mucous membranes Neck: supple, trachea midline Cardio: RRR; no murmurs, gallops, rubs; + S1/S2; no edema Chest: symmetric chest rise Pulm: expiratory wheezes present, no respiratory distress, Abd: soft, nontender, nondistended, normal bowel sounds, no rebound/rigidity/guarding Neuro: CN II-XII grossly intact; Tremor present. right sided weakness of UE 3/5, LE 3/5. No speech deficit, facial droop. moves all extremities spontaneously; mentating well Ext: no lower extremity edema; 2+/4 radial/pedal pulses equal bilaterally, no gross deformities MSK: no visible deformities, no joint swelling Psych: normal mood and affect, cooperative, answers questions appropriately, doesnt appear anxious or agitated Skin: warm, dry, intact; no rash, vesicles, mottling, pallor - Assessment and Plan (1) Acute encephalopathy Current Visit: No Status: Acute Assessment and Plan: Improved. Etiology unclear: sepsis secondary to multifocal PNA vs ischemic event vs ?? Presented from SNF for concerns of altered mental status and right-sided weakness. [facility] stroke team felt pt's altered mental status and weakness were most likely the result of sepsis from multifocal PNA. Head CT showed no acute intracranial abnormality; redemonstration of left-sided pontine infarct and mild, chronic small vessel ischemic changes of white matter. CTA head and neck negative for hemodynamically significant stenosis, occlusion, or aneurysm. *Radiology re-read brain MRI and concluded area of diffusion restriction in left temporal lobe was consistent with acute or subacute infarction* Will continue to monitor for changes in mental status. Neurology following, recommendations appreciated. Monitor peripheral vein BCx for growth. (2) Multifocal pneumonia Current Visit: Yes Status: Acute Assessment and Plan: Initially met sepsis criteria on admission: temp 101.3, HR 101 with suspected cource of PNA. Chest x-ray showed bilateral opacities. Chest CT angiogram showed dense consolidations in the bilateral lower lobes, left more than right. No leukocytosis. Received empiric IV abx vancomycin, cefepime, levaquin. MRSA nasal swab negative. Continue cefepime and start Zosyn. Stop vancomycin. Monitor sputum cx, blood cx for growth. Monitor closely for signs of worsening infection, recurrence of sepsis. (3) Stroke-like symptom Current Visit: Yes Status: Acute Assessment and Plan: Patient had complaint of right sided weakness Has previous left sided CVA at this facility with subsequent right sided weakness May also be related to sepsis and resolving previous stroke Stroke alert called in ED- out of window for TPA CT and MRI as above Neuro has been consulted. Plan Continue aspirin, statin, plavix Further anticoagulation discussed with patient today, he will discuss with boone Further recommendations per neuro PT/OT (4) CVA (cerebral vascular accident) Current Visit: Yes Status: Suspected Assessment and Plan: as above (5) ESRD on dialysis Current Visit: Yes Status: Chronic Assessment and Plan: Continue HD per nephro (6) Diabetes mellitus Current Visit: Yes Status: Chronic Assessment and Plan: Slightly hypoglycemic on date of admission, serum glucose in 50's Low-dose sliding scale insulin available for glucose correction if needed. Check POC glucose TID AC. Hypoglycemia orders per protocol. ADA diet modifications. (7) Anemia Current Visit: Yes Status: Chronic Assessment and Plan: Hgb 9.9 on admission, Hgb 8.5 on recheck. Most recent baseline Hgb 9-10. Macrocytic and normochromic No overt signs of acute bleed observed, suspect anemia of chronic disease. Continue to monitor, repeat CBC in AM to follow Hgb. (8) Sepsis Current Visit: No Status: Resolved Assessment and Plan: Sepsis criteria met on admission (see above), now resolved. Will continue to monitor for signs of sepsis. - Time Spent with Patient Total time spent is greater than 50% in coordination of care (as documented) at patient's floor/unit and/or counseling patient: Internal Medicine: Result - Labs CBC & Chem 7: 10/21/18 06:36 10/21/18 09:00 Labs: Short CBC 10/20/18 Range/Units 19:50 WBC 11.1 (4.3-11.1) K/mcL Hgb 9.9 L (12.9-16.9) g/dL Hct 31.0 L (37.5-50.1) % Plt Count 305 (140-400) K/mcL Neutrophils # 9.0 H (1.6-8.9) K/mcL BMP 10/20/18 19:50 Sodium 142 Potassium 5.3 H Chloride 103 Carbon Dioxide 23 BUN 55 H Creatinine 5.73 H Glucose 78 Calcium 9.3 Cardiac Enzymes 10/20/18 Range/Units 19:50 Troponin I < 0.03 (< 0.04) ng/mL Liver Function 10/20/18 Range/Units 19:50 Total Bilirubin 0.3 (0.3-1.0) mg/dL Direct Bilirubin 0.1 (0.0-0.2) mg/dL AST 9 L (13-39) Units/L ALT < 3 L (7-52) Units/L Alkaline Phosphatase 53 (34-104) Units/L Albumin 3.6 (3.5-5.7) g/dL Urine 10/20/18 Range/Units Unknown Urine Color Yellow (Yellow) Urine Clarity Clear (Clear) Urine pH 6.5 (5.0-8.0) pH Units Ur Specific Marshall 1.010 (1.010-1.025) Urine Protein 100 H (Neg-Trace) mg/dL Urine Glucose (UA) >=1000 H (Normal) mg/dL - ABG Interpretation ABG results: PT/INR, D-dimer PT 12.0 Seconds (9.4-12.1) 10/20/18 19:50 - Impressions Impressions Head CT 10/20/18 19:58 IMPRESSION: No acute intracranial abnormality. Redemonstration of small pontine infarct on the left. Mild chronic small vessel white matter ischemic changes. Findings were discussed with Petr Goldberg DO at 8:17 pm on 10/20/2018. D/ / Jamil Salgado MD / Jamil Salgado MD Interpreting Provider: Jamil Salgado MD Chest X-Ray 10/20/18 20:19 IMPRESSION: Bilateral perihilar opacities may represent atelectasis. Pneumonia is a differential consideration. D/ / Berlin Mason MD / Berlin Mason MD Interpreting Provider: Berlin Mason MD Chest CTA 10/21/18 00:00 IMPRESSION: Patient respiratory motion artifact limited exam without definite evidence for pulmonary embolism as above. Dense consolidations bilateral lower lobes, left more than right, along with some smaller more patchy areas of consolidation to the superior segments of the bilateral lower lobes as well as posteriorly to the left upper lobe. Findings may be on the basis of atelectasis, multifocal pneumonia and/or aspiration pneumonitis or some combination thereof. Clinical correlation and continued follow-up recommended. Trace left pleural effusion. Stable cardiomegaly. Atherosclerosis to include coronary artery disease. Cholelithiasis. D/ / 10/21/2018 07:06:46 Devon Leblanc MD / song wang Interpreting Provider: Devon Leblanc MD Head CTA 10/21/18 00:00 IMPRESSION: No large artery focal hemodynamically significant stenosis, occlusion or aneurysm in the head or neck. Heterogeneous opacities in the visualized lungs could represent atelectasis/scarring and/or an infectious/inflammatory process. D/ / Cole Sessions / Cole Sessions Interpreting Provider: Cole Sessions Neck CTA 10/21/18 00:00 IMPRESSION: No large artery focal hemodynamically significant stenosis, occlusion or aneurysm in the head or neck. Heterogeneous opacities in the visualized lungs could represent atelectasis/scarring and/or an infectious/inflammatory process. 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; Z79.4 - terminal gauger (current) use of insulin (3) CVA (cerebral vascular accident) Qualifiers: CVA mechanism: unspecified Qualified Code(s): I63.9 - Cerebral infarction, unspecified (7) Altered mental status Qualifiers: Altered mental status type: unspecified Qualified Code(s): R41.82 - Altered mental status, unspecified <Ciara Dee - Last Filed: 10/22/18 00:04> (4) CVA (cerebral vascular accident) Qualifiers: CVA mechanism: unspecified Qualified Code(s): I63.9 - Cerebral infarction, unspecified (6) Diabetes mellitus Qualifiers: Diabetes mellitus type: type 2 Diabetes mellitus group home insulin use: with group home use Diabetes mellitus complication status: with kidney complications Diabetes mellitus complication detail: with chronic kidney disease Chronic kidney disease stage: unspecified stage Qualified Code(s): E11.22 - Type 2 diabetes mellitus with diabetic chronic kidney disease; Z79.4 - terminal gauger (current) use of insulin (7) Anemia Qualifiers: Anemia type: unspecified type Qualified Code(s): D64.9 - Anemia, unspecified (8) Sepsis Qualifiers: Sepsis type: sepsis due to unspecified organism Qualified Code(s): A41.9 - Sepsis, unspecified organism
[2018-10-21] MEDS: Finasteride 5 MG TABLET PO SCH (08:54)
[2018-10-21] MEDS: Calcium Acetate 667 MG CAPSULE PO SCH ×3 (08:54→16:52)
[2018-10-21] MEDS: Aspirin Enteric Coated 81 MG Tablet PO SCH (08:54)
[2018-10-21] MEDS: Carbidopa/Levodopa 25/100 TABLET PO SCH ×2 (08:54→20:19)
[2018-10-21] MEDS: Rivastigmine Patch 9.5 MG PATCH.TD24 TP SCH (08:55)
[2018-10-21] MEDS ORDERED: Levofloxacin 750 MG/150 ML 750 MG/150 ML BAG IVPB SCH (09:00)
[2018-10-21] MEDS ORDERED: Pregabalin 50 MG CAPSULE PO SCH (09:00)
--- NOTE | 2018-10-21 09:17 | Neurology - Consult Note ---
Date of Encounter: 10/21/18 Time of Encounter: 09:13 Assessment and Plan (1) Stroke-like symptom Current Visit: Yes Status: Acute (2) Altered mental status Current Visit: Yes Status: Acute Qualifiers: Altered mental status type: unspecified Qualified Code(s): R41.82 - Altered mental status, unspecified (3) Acute CVA (cerebrovascular accident) Current Visit: Yes Status: Acute Neurology consulted to evaluate for stroke-like symptoms Patient p/W AMS and left-sided weakness in the setting of suspected sepsis Altered mental status and left-sided weakness has resolved; still having Rt sided weakness RUE, RLE which he has had from earlier CVA in 10/2018 MRI imaging positive for infarct in the left insula/left medial temporal lobe; etiology; embolic vs ischemic Has known reduced EF and wall motion abnormalities on recent TTE Given recurrent CVA, reduced EF and wall abnormalities on TTE we are recommending stopping Plavix and we recommend adding oral anticoagulation such as coumadin barring any contraindication for anticoagulation. Defer to primary team C/W ASA 81mg daily and Statin meds Neurologically the patient is intact this morning revealing only chronic right- sided deficits which he reports as at baseline. Overall he feels generally weak and this may be d/t sepsis and PNA c/w neurological assessments per protocol Continue medical and supportive care History of Present Illness Chief complaint: AMS, LOC with ext jerking and Lt weakness HPI: Mr. Anguiano is a 73 year old male with a PMH of DM, HLD, HTN, ESRD and CVA 2. He was most recently at [facility] in early October with an acute CVA. He was discharged to a extended care facility for which she returned overnight with a chief complaint of left-sided weakness, altered mental state episodes of loss of consciousness and bilateral hand/arm jerking. On admission was found to most likely be septic with fevers, tachycardia and chest x-ray revealing bilateral opacities. CTA chest showed dense consolidation in bilateral lower lobes left more than right. Given presentation with left-sided weakness and altered mental state a stroke alert was called. [facility] neurology evaluated and no TPA was given. Upon my assessment this morning the patient is alert and oriented 3 but is somewhat easily distracted requiring frequent reorientation. Otherwise the neurological examination does not elicit any acute focal findings. He has had a CT of the head in the ED which did not reveal any acute abnormalities. An MRI has been ordered and is pending completion. Neurology will continue to follow for evaluation of a suspected acute CVA and altered mental state. Past Med Surg Social Fam HX - Past Medical History Medical history: cancer, CVA, diabetes, glaucoma, hyperlipidemia, hypertension, renal disease, other Additional medical history: skin cancer, parkinson Psychiatric history: depression - Past Surgical History Surgical History: angioplasty/stent, cataract, coronary bypass (CABG), orthopedic, other Additional surgical history: left foot surgery, cardiac stents x9, skin cancer removed, back surgery, - Social History Smoking Status: Never smoker Smokeless Tobacco Status: No Alcohol use: none Drug use: none - Family History Father History Unknown: Yes Living Status: Hx Family Cardiac Disorders: Yes Mother History Unknown: Yes Adopted: No Living Status: Hx Family Cardiac Disorders: Yes Hx Family Cancer: Yes (liver cancer) Medications and Allergies Clopidogrel [Plavix] 75 mg PO DAILY 01/02/17 [History] Finasteride [Proscar] 5 mg PO DAILY 01/02/17 [History] Fluticasone Propionate Nasal [Flonase] 100 mcg NS DAILY PRN 01/02/17 [History] Nitroglycerin [Nitrostat] 0.4 mg SL Q5MIN PRN 01/02/17 [History] carBAMazepine [Tegretol] 200 mg PO TID 01/02/17 [History] Omeprazole [PriLOSEC] 40 mg PO DAILY 01/21/17 [History] Calcitriol [Rocaltrol] 0.25 mcg PO DAILY 10/04/18 [History] Calcium Acetate [Phos-LO] 1,334 mg PO TIDWM 10/04/18 [History] Ergocalciferol (VITAMIN D2) [Vitamin D2] 50,000 units PO WE 10/04/18 [History] Insulin Degludec [Tresiba Flextouch U-200] 80 units SQ HS 10/04/18 [History] Isosorbide MONOnitrate (24 HR) [Imdur] 30 mg PO DAILY 10/04/18 [History] Midodrine HCl 10 mg PO FIGUEROA 10/04/18 [History] Rivastigmine Patch [Exelon] 9.5 mg TP DAILY 10/04/18 [History] Aspirin Enteric Coated [Aspirin EC] 81 mg PO DAILY #60 tablet. 10/12/18 [Rx] Pregabalin [Lyrica] 100 mg PO BID 30 Days #60 capsule 10/13/18 [Rx] Atorvastatin Calcium [Lipitor] 80 mg PO HS 10/20/18 [History] Carbidopa/Levodopa [Carbidopa-Levodopa 25-100 Tab] 1 each PO BID 10/20/18 [History] Insulin LISPRO [HumaLOG] 0 units SQ TIDWM 10/20/18 [History] Allergy/AdvReac Type Severity Reaction Status Date / Time No Known Allergies Allergy Verified 10/04/18 19:00 All Systems: The remainder of the systems were reviewed and are negative Review of Systems: REVIEW OF SYSTEMS GENERAL: Positive-fatigue, malaise, generalized weakness and fevers NEUROLOGIC: Negative for any blurry vision, blind spots, double vision, facial asymmetry, dysphagia, hemiparesis, hemisensory deficits, vertigo, ataxia, seizures, paralysis, tingling, numbness Positive-he is reporting chronic R UE, RLE weakness which is at baseline. On admission he was experiencing an altered mental state and LUE, LLE weakness which has since resolved. He was also experiencing some slurred speech but this is also resolved. HEENT: Negative for any head trauma, neck trauma, neck stiffness, photophobia, phonophobia. CARDIAC: Negative for any chest pain, dyspnea, or palpitations MUSCULOSKELETAL: Positive-limitation to activity due to chronic right-sided weakness S/P CVA. He is also reporting an acute episode of LUE, LLE diminished strength which has since resolved Physical Examination - Vital Signs Vital Signs: Initial Vital Signs Temp Pulse Resp BP Pulse Ox 101.3 F H 101 18 169/72 90 10/20/18 19:52 10/20/18 19:52 10/20/18 19:52 10/20/18 19:52 10/20/18 19:52 - Exam Exam: Examination: General Examination: *CONSTITUTIONAL: Alert and oriented x3, no acute distress *GENERAL APPEARANCE OF PATIENT obese and generally ill and frail appearing elderly male *EYES: pupils equal, round, reactive to light and accommodation, conjunctiva clear *CARDIOVASCULAR no peripheral edema, distal temperature normal, dorsalis pedis pulses normal. See vitals Musculoskeletal: *GAIT AND STATION deferred due to generalized weakness; high risk for falls *ASSESSMENT OF MUSCLE STRENGTH IN THE UPPER AND LOWER EXTREMITIES right deltoid, bicep, tricep, statistics intern strength, hip flexors ,anterior tibialis, dorsoflexion of the foot 3/5. - - Left deltoid, bicep, tricep, statistics intern strength, hip flexor, anterior tibialis and dorsiflexion of the left foot 4/5 *MUSCLE TONE IN THE UPPER AND LOWER EXTREMITIES atrophy present in bilateral hands along the radial nerve. Otherwise No abnormal movements, fasciculations Neurological: *ORIENTATION to person, situation, time and place *RECURRENT AND REMOTE MEMORY intact *ATTENTION AND CONCENTRATION are somewhat abnormal and the patient is easily distracted requiring reorientation *LANGUAGE FUNCTION no significant aphasia or dysarthia was noted. *FUND OF KNOWLEDGE aware of current events, past history, vocabulary *MENTAL attention span and concentration abnormal. see above *CN II optic fundi were normal, no papilledema noted. *CN III,IV, PERRLA extraocular eye movements were full, no nystagmus and no ptosis noted. *CN V shows normal sensation and jaw opens symmetrically. *CN VII shows normal facial movement symmetrically, upper and lower bilaterally. *CN VIII shows no significant hearing loss on exam *CN IX,,X palate elevated symmetrically *CN XI normal strength in the sternocleidomastoid muscles, symmetrical shoulder shrugging. *CN XII tongue protruded in the midline, with normal strength and movement. *SENSORY EXAMINATION light touch intact *REFLEXES: deep tendon reflexes were normal and symmetrical , grade 2/4 diffusely, no pathological reflexes were noted. *CEREBELLAR TESTING normal finger to nose, heel/knee/dubon *PAIN LEVEL 0/10 Results - Laboratory Findings CBC and BMP: 10/21/18 06:36 10/21/18 09:00 Abnormal lab findings: Abnormal lab results RBC 3.01 M/mcL (4.19-5.50) L 10/20/18 19:50 Hgb 9.9 g/dL (12.9-16.9) L 10/20/18 19:50 Hct 31.0 % (37.5-50.1) L 10/20/18 19:50 MCV 103.0 fL (83.0-100.0) H 10/20/18 19:50 9.0 K/mcL (1.6-8.9) H 10/20/18 19:50 Potassium 5.3 mEq/L (3.5-5.1) H 10/20/18 19:50 BUN 55 mg/dL (8-23) H 10/20/18 19:50 5.73 mg/dL (0.70-1.30) H 10/20/18 19:50 Est GFR ( Amer) 12 (> 60) L 10/20/18 19:50 Est GFR (Non-Af Amer) 10 (> 60) L 10/20/18 19:50 308 (280-300) H 10/20/18 19:50 Phosphorus 6.2 mg/dL (2.7-4.5) H 10/20/18 19:50 AST 9 Units/L (13-39) L 10/20/18 19:50 ALT < 3 Units/L (7-52) L 10/20/18 19:50 100 mg/dL (Neg-Trace) H 10/20/18 Unknown >=1000 mg/dL (Normal) H 10/20/18 Unknown 5-15 per hpf (0-3) H 10/20/18 Unknown Ur Squamous Epith Cells Moderate per lpf (None-Few) H 10/20/18 Unknown - Diagnostic Findings Additional findings: CT/CT angio neck IMPRESSION: No large artery focal hemodynamically significant stenosis, occlusion or aneurysm in the head or neck. Heterogeneous opacities in the visualized lungs could represent atelectasis/scarring and/or an infectious/inflammatory process. CT/CT stroke alert head wo con IMPRESSION: No acute intracranial abnormality. Redemonstration of small pontine infarct on the left. Mild chronic small vessel white matter ischemic changes. Consult Discharge Plan - Plan Referrals: Raoul Gaona DO [Primary Care Provider] -
[2018-10-21 09:35] LABS: Hematocrit 26.9 % (37.5-50.1); Hemoglobin 8.5 g/dL (12.9-16.9); Mean Corpuscular HGB Conc 31.6 g/dL (31.6-35.5); Mean Corpuscular Hemoglobin 33.1 pg (28.0-33.3); Mean Corpuscular Volume 104.7 fL (83.0-100.0); Mean Platelet Volume 9.4 fL (9.4-12.4); Platelet Count 259 K/mcL (140-400); Red Blood Count 2.57 M/mcL (4.19-5.50); Red Cell Distribution Width 13.3 % (11.5-14.5); White Blood Count 8.7 K/mcL (4.3-11.1)
[2018-10-21 10:04] LABS: Calcium 8.5 mg/dL (8.6-10.3); Potassium 5.1 mEq/L (3.5-5.1)
--- NOTE | 2018-10-21 10:15 | Nephrology Consult Note ---
Date of Encounter: 10/21/18 Time of Encounter: 10:15 History of Present Illness - Reason for Consult Consult date: 10/21/18 end stage renal disease - Chief Complaint esrd - History of Present Illness Mr. Anguiano is a 73 yo man with a history of ESRD who receives dialysis TRS. The patient presented with strokelike symptoms. He was evaluated and his symptoms were felt to be secondary to sepsis. [facility] specialist was consulted for ongoing dialysis needs. At the time my evaluation the patient was denying chest pain or shortness of breath. Review of systems otherwise is stable Past Med Surg Social Fam HX - Past Medical History Medical history: cancer, CVA, diabetes, glaucoma, hyperlipidemia, hypertension, renal disease, other Additional medical history: skin cancer, parkinson Psychiatric history: depression - Past Surgical History Surgical History: angioplasty/stent, cataract, coronary bypass (CABG), orthopedic, other Additional surgical history: left foot surgery, cardiac stents x9, skin cancer removed, back surgery, - Social History Smoking Status: Never smoker Smokeless Tobacco Status: No Alcohol use: none Drug use: none - Family History Father History Unknown: Yes Living Status: Hx Family Cardiac Disorders: Yes Mother History Unknown: Yes Adopted: No Living Status: Hx Family Cardiac Disorders: Yes Hx Family Cancer: Yes (liver cancer) Medications and Allergies Clopidogrel [Plavix] 75 mg PO DAILY 01/02/17 [History] Finasteride [Proscar] 5 mg PO DAILY 01/02/17 [History] Fluticasone Propionate Nasal [Flonase] 100 mcg NS DAILY PRN 01/02/17 [History] Nitroglycerin [Nitrostat] 0.4 mg SL Q5MIN PRN 01/02/17 [History] carBAMazepine [Tegretol] 200 mg PO TID 01/02/17 [History] Omeprazole [PriLOSEC] 40 mg PO DAILY 01/21/17 [History] Calcitriol [Rocaltrol] 0.25 mcg PO DAILY 10/04/18 [History] Calcium Acetate [Phos-LO] 1,334 mg PO TIDWM 10/04/18 [History] Ergocalciferol (VITAMIN D2) [Vitamin D2] 50,000 units PO WE 10/04/18 [History] Insulin Degludec [Tresiba Flextouch U-200] 80 units SQ HS 10/04/18 [History] Isosorbide MONOnitrate (24 HR) [Imdur] 30 mg PO DAILY 10/04/18 [History] Midodrine HCl 10 mg PO FIGUEROA 10/04/18 [History] Rivastigmine Patch [Exelon] 9.5 mg TP DAILY 10/04/18 [History] Aspirin Enteric Coated [Aspirin EC] 81 mg PO DAILY #60 tablet.dr 10/12/18 [Rx] Pregabalin [Lyrica] 100 mg PO BID 30 Days #60 capsule 10/13/18 [Rx] Atorvastatin Calcium [Lipitor] 80 mg PO HS 10/20/18 [History] Carbidopa/Levodopa [Carbidopa-Levodopa 25-100 Tab] 1 each PO BID 10/20/18 [History] Insulin LISPRO [HumaLOG] 0 units SQ TIDWM 10/20/18 [History] Allergy/AdvReac Type Severity Reaction Status Date / Time No Known Allergies Allergy Verified 10/04/18 19:00 Review of Systems All Systems: reviewed and no additional remarkable complaints except as stated (Documented in the history of present illness) Exam - Vital Signs Vital signs: Initial Vital Signs Temp Pulse Resp BP Pulse Ox 101.3 F H 101 18 169/72 90 10/20/18 19:52 10/20/18 19:52 10/20/18 19:52 10/20/18 19:52 10/20/18 19:52 Vital Signs - Last 8 Hours Temp Pulse Resp BP Pulse Ox 10/21/18 06:41 97.9 F 88 16 139/62 97 10/21/18 03:33 99.1 F 87 15 136/69 99 Intake and Output 10/20/18 10/21/18 10/21/18 23:59 07:59 15:59 Intake Total 2400 / 2400 Balance 2400 / 2400 Intake: IV Fluids 2400 / 2400 0.9 % Sodium Chloride 1,000 ML 2000 / 2000 @ 999 mls/hr IVC .Q1H1M DANETTE Rx# :[id number] Levaquin Premix 750mg/150 mL 150 / 150 750 mg In 150 ml @ 100 mls/hr IVPB ONCE ONE Rx#:[id number] Vancocin 1,500 MG In 0.9 % 250 / 250 Sodium Chloride 250 ML @ 166.67 mls/hr IVPB ONCE ONE Rx#: [id number] Other: Weight 93.44 kg 93.9 kg Blood Glucose* 73 75 Patient Weight 10/21/18 23:59 Weight 93.9 kg - General Appearance General appearance: well-developed, well-nourished EENT: ATNC Neck: supple Respiratory: clear Cardiology: regular rate Gastrointestinal: no tenderness Integumentary: warm and dry Musculoskeletal: no cyanosis Psychiatric: mood/affect appropriate Results - Lab Results 10/21/18 06:36 10/21/18 09:00 Most recent lab results 10/21/18 06:36 Calcium 8.5 L Consult Discharge Plan - Plan Referrals: Raoul Gaona DO [Primary Care Provider] -
[2018-10-21] MEDS ORDERED: Ipratropium/Albuterol Neb 3 ML IH PRN (11:23)
[2018-10-21] MEDS ORDERED: Insulin LISPRO 300 UNITS/3 ML VIAL SQ SCH (12:00)
[2018-10-21] MEDS: Piperacillin/Tazobactam 3.375 GM in 0.9 % Sodium Chloride Mini Bag 100 ML IVPB SCH (14:01)
[2018-10-21 14:16] LABS: Albumin 3.1 g/dL (3.5-5.7); Calcium 8.6 mg/dL (8.6-10.3); Phosphorous 5.8 mg/dL (2.7-4.5); Potassium 5.1 mEq/L (3.5-5.1)
[2018-10-21] MEDS ORDERED: Cefepime HCl 1,000 MG in 0.9 % Sodium Chloride Mini Bag 100 ML IVPB SCH (16:00)
[2018-10-21] MEDS: Insulin LISPRO 300 UNITS/3 ML VIAL SQ SCH ×2 (16:26→20:20)
--- NOTE | 2018-10-21 17:23 | Electrocardiograph Report ---
[address] [address] Test Date: 2018-10-21 Pat Name: Alexander Anguiano Department: 111 Room: 2NE35 Gender: M [employer]: : [id number] Requested By: [id number] Order Number: [id number] Reading MD: Marquita Winter Measurements Intervals [place] Rate: 73 P: 149 [place]: 268 QRS: 181 QRSD: 139 T: 157 QT: 390 QTc: 416 Interpretive Statements SINUS OR ECTOPIC ATRIAL RHYTHM WITH FIRST DEGREE AV BLOCK INTRAVENTRICULAR CONDUCTION DELAY [130+ ms QRS DURATION] Electronically Signed On 10-21-2018 17:21:50 EDT by Marquita Winter
[2018-10-21] MEDS ORDERED: Cefepime HCl 500 MG in 0.9 % Sodium Chloride Mini Bag 100 ML IVPB SCH (20:00)
--- NOTE | 2018-10-21 23:29 | Event Note ---
Date of Encounter: 10/21/18 Time of Encounter: 23:26 This is the assessment and plan for the H&P I just completed. Unfortunately the H&P is locked and will not allow me to put in the assessment and plan. Please see below. ESRD-HD TRS. Renal vitamins. Renal dose medications. Renal diet. Additional dialysis and ultrafiltration as needed. She does not appear to need dialysis today. Plan for dialysis tomorrow.
[2018-10-22] MEDS: Piperacillin/Tazobactam 3.375 GM in 0.9 % Sodium Chloride Mini Bag 100 ML IVPB SCH ×2 (03:13→14:06)
[2018-10-22 05:12] LABS: Basophils % 0.1 %; Eosinophils # 0.2 K/mcL (0.0-0.6); Eosinophils % 2.8 %; Hematocrit 26.9 % (37.5-50.1); Hemoglobin 8.6 g/dL (12.9-16.9); Immature Granulocytes % 0.5 % (0-4); Lymphocytes # 1.1 K/mcL (0.6-4.6); Lymphocytes % 14.2 %; Mean Corpuscular Hemoglobin 32.8 pg (28.0-33.3); Mean Corpuscular Volume 102.7 fL (83.0-100.0); Mean Platelet Volume 9.8 fL (9.4-12.4); Monocytes # 0.5 K/mcL (0.0-1.3); Monocytes % 6.4 %; Neutrophils # 5.7 K/mcL (1.6-8.9); Platelet Count 256 K/mcL (140-400); Red Blood Count 2.62 M/mcL (4.19-5.50); Red Cell Distribution Width 13.3 % (11.5-14.5); White Blood Count 7.5 K/mcL (4.3-11.1)
[2018-10-22 05:31] LABS: Calcium 8.6 mg/dL (8.6-10.3); Potassium 5.8 mEq/L (3.5-5.1)
[2018-10-22] MEDS: Insulin LISPRO 300 UNITS/3 ML VIAL SQ SCH ×4 (07:35→23:43)
[2018-10-22] MEDS: Rivastigmine Patch 9.5 MG PATCH.TD24 TP SCH (07:49)
[2018-10-22] MEDS: Calcium Acetate 667 MG CAPSULE PO SCH ×3 (07:49→16:31)
[2018-10-22] MEDS: carBAMazepine 200 MG TABLET PO SCH ×3 (07:49→20:24)
[2018-10-22] MEDS: Aspirin Enteric Coated 81 MG Tablet PO SCH (07:49)
[2018-10-22] MEDS: Finasteride 5 MG TABLET PO SCH (07:49)
[2018-10-22] MEDS: Carbidopa/Levodopa 25/100 TABLET PO SCH ×2 (07:49→20:24)
[2018-10-22] MEDS ORDERED: *HR* Heparin 10,000 UNIT/10 ML VIAL IV PRN (08:03)
[2018-10-22] MEDS ORDERED: 0.9 % Sodium Chloride 250 ML IVC PRN (08:03)
[2018-10-22] MEDS ORDERED: 0.9 % Sodium Chloride 1,000 ML PRIME SCH (08:15)
--- NOTE | 2018-10-22 08:15 | Internal Med Progress Note ---
<Sloane Arzola - Last Filed: 10/22/18 13:14> Hospitalist Progress Note - Encounter Date of Encounter: 10/22/18 - Exam Vitals: Temp Pulse Resp BP Pulse Ox 97.7 F 77 16 90/56 98 10/22/18 09:35 10/22/18 06:45 10/22/18 09:35 10/22/18 12:50 10/22/18 06:45 - Assessment and Plan (1) Diabetes mellitus Current Visit: Yes Status: Chronic (2) DVT prophylaxis Current Visit: No Status: Acute (3) CVA (cerebral vascular accident) Current Visit: Yes Status: Suspected (4) ESRD on dialysis Current Visit: Yes Status: Chronic (5) Multifocal pneumonia Current Visit: Yes Status: Acute (6) Stroke-like symptom Current Visit: Yes Status: Acute (7) Altered mental status Current Visit: Yes Status: Acute - Time Spent with Patient Total time spent is greater than 50% in coordination of care (as documented) at patient's floor/unit and/or counseling patient: Internal Medicine: Result - Labs CBC & Chem 7: 10/22/18 04:58 10/22/18 04:58 Labs: Short CBC 10/22/18 Range/Units 04:58 WBC 7.5 (4.3-11.1) K/mcL Hgb 8.6 L (12.9-16.9) g/dL Hct 26.9 L (37.5-50.1) % Plt Count 256 (140-400) K/mcL Neutrophils # 5.7 (1.6-8.9) K/mcL BMP 10/21/18 10/22/18 09:00 04:58 Sodium 142 141 Potassium 5.1 5.8 H Chloride 107 108 H Carbon Dioxide 25 22 L BUN 58 H 67 H Creatinine 5.96 H 6.50 H Glucose 51 L 107 H Calcium 8.6 8.6 Liver Function 10/21/18 Range/Units 09:00 Albumin 3.1 L (3.5-5.7) g/dL - ABG Interpretation ABG results: PT/INR, D-dimer PT 12.0 Seconds (9.4-12.1) 10/20/18 19:50 - Impressions Impressions Chest CTA 10/21/18 00:00 IMPRESSION: Patient respiratory motion artifact limited exam without definite evidence for pulmonary embolism as above. Dense consolidations bilateral lower lobes, left more than right, along with some smaller more patchy areas of consolidation to the superior segments of the bilateral lower lobes as well as posteriorly to the left upper lobe. Findings may be on the basis of atelectasis, multifocal pneumonia and/or aspiration pneumonitis or some combination thereof. Clinical correlation and continued follow-up recommended. Trace left pleural effusion. Stable cardiomegaly. Atherosclerosis to include coronary artery disease. Cholelithiasis. D/ / 10/21/2018 07:06:46 Devon Leblanc MD / [facility] Interpreting Provider: Devon Leblanc MD Brain MRI 10/21/18 06:38 IMPRESSION: 1. Resolving subacute left pontine infarction, decreased in size and conspicuity compared to prior MRI from 10/07/2018. 2. focus of diffusion restriction within the left temporal lobe consistent with acute/subacute lacunar infarction, new compared to prior MRI. This is discussed with the neurology unit nurse practitioner at 1:20 p.m. on 10/21/2018. 3. Parenchymal volume loss and sequela of mild chronic microvascular ischemic changes. Old lacunar infarctions. D/ / 10/21/2018 10:58:37 Shawn Pantoja MD / [facility] Interpreting Provider: Shawn Pantoja MD Consult Discharge Plan - Plan Referrals: Raoul Gaona DO [Primary Care Provider] - - Attending Attestation I examined this patient and my medical decision-making was reviewed with the Resident Physician Dr Dee. I agree with the documented findings, disposition and treatment plan as described except to the extent set forth below. Mr Anguiano is admitted with sepsis 2/2 pneumonia and weakness awake, eating breakfast and rehab in room. not present. He denies further changes to weakness. no headache. no coughing or choking with breakfast. denies cough today gen- alert, awake,appears stated age cv- reg rate and rhythm, normal s1,s2 lungs- ctabl, no wheezing, rhonchi or crackles appreciated,normal resp effort on o2 nc abd- soft, non tender, non distended, + bs neuro- AAOx3, CN grossly intact, +pronator drift RUE, RUE strength 4/5, LUE 5/5 Sepsis 2/2 Bibasilar Pna, resolved -vanc + zosyn, mrsa swab pending, cxs ngtd Weakness suspected related to sepsis as per [facility] Neurology in ED, he was not treated with tpa, he had normal CTA head and neck MRI later confirmed acute temporal CVA, outside window for tpa/intervention -neuro following, asa + plavix + statin, neuro and family will discuss AC given risk with prior gib and prbc need/fall risk w parkinson vs benefit w concern for embolic cvas -permissive htn Hyperkalemia - HD today, nephro following Hypotensive in HD- given he is in permissive htn setting need to strive for normotensive, defer achieving normotensive in HD to nephro HFrEF 35% 09/2018- stable, euvolemic further dx and plan as noted by resident <Ciara Dee - Last Filed: 10/22/18 17:57> Hospitalist Progress Note - Encounter Date of Encounter: 10/22/18 Time of Encounter: 08:17 - Subjective Interval History: Seen and examined this morning while receiving hemodialysis. Patient appeared comfortable, in no distress. Feels like his breathing is okay today, denies cough. Patient denies fevers, chills, nausea, vomiting, chest pain or pressure, abdominal pain. - Exam Vitals: Temp Pulse Resp BP Pulse Ox 98.1 F 77 14 170/79 98 10/22/18 06:45 10/22/18 06:45 10/22/18 06:45 10/22/18 06:45 10/22/18 06:45 Exam: General: vital signs noted, no acute distress Head: normocephalic, atraumatic Eyes: EOMI, PERRL, sclera anicteric ENT: moist mucous membranes Neck: supple, trachea midline Cardio: RRR; no murmurs, gallops, rubs; + S1/S2; no edema Chest: symmetric chest rise Pulm: no respiratory distress, left-sided rales appreciated, generally poor respiratory effort, supplemental O2 by NC Abd: soft, nontender, nondistended, normal bowel sounds, no rebound/rigidity/guarding Neuro: CN II-XII grossly intact; Tremor present. RUE pronator drift. No speech deficit or facial droop. Moves all extremities spontaneously; oriented to self and place, unable to correctly recall what year it is. Ext: no lower extremity edema; 2+/4 pedal pulses equal bilaterally, no gross deformities MSK: no visible deformities, no joint swelling Psych: flat affect, cooperative, doesnt appear anxious or agitated Skin: warm, dry, intact; no rash, vesicles, mottling, pallor - Assessment and Plan (1) Acute CVA (cerebrovascular accident) Current Visit: Yes Status: Acute Assessment and Plan: - [facility] stroke team felt pt's altered mental status and weakness were most likely the result of sepsis from multifocal PNA. - Head CT showed no acute intracranial abnormality; redemonstration of left- sided pontine infarct and mild, chronic small vessel ischemic changes of white matter. - CTA head and neck negative for hemodynamically significant stenosis, occlusion, or aneurysm. - 10/21/18 *Radiology re-read brain MRI and concluded area of diffusion restriction in left temporal lobe was consistent with acute or subacute infarction* - Neuro recommending medical management and oral AC. - Present for neuro's discussion with pt and family of associated risks/benefits of AC today, family would like to discuss further before making decision. Continue ASA, plavix, statin, EPCDs for now. Permissive HTN, not to exceed SBP > 220 or DBP > 120. (2) Multifocal pneumonia Current Visit: Yes Status: Acute Assessment and Plan: Initially met sepsis criteria on admission: temp 101.3, HR 101 with suspected cause of PNA. Chest x-ray showed bilateral opacities. Chest CT angiogram showed dense consolidations in the bilateral lower lobes, left more than right. No leukocytosis, no fever since admission. Blood cultures NGTD. Sputum culture pending collection. + MRSA nasal swab. Continue cefepime, zosyn, vancomycin with renal dosing. Continue to monitor cultures for growth. Monitor closely for signs of worsening infection, recurrence of sepsis. (3) Acute encephalopathy Current Visit: Yes Status: Acute Assessment and Plan: Improved. Etiology unclear: sepsis secondary to multifocal PNA vs ischemic event vs metabolic [facility] stroke team felt pt's altered mental status and weakness were most likely t he result of sepsis from multifocal PNA. Head CT showed no acute intracranial abnormality; redemonstration of left-sided pontine infarct and mild, chronic small vessel ischemic changes of white matter. CTA head and neck negative for hemodynamically significant stenosis, occlusion, or aneurysm. 10/21/18 *Radiology re-read brain MRI and concluded area of diffusion restriction in left temporal lobe was consistent with acute or subacute infarction* Peripheral BCx remain NGTD Will continue to monitor for changes in mental status. Neurology following, recommendations appreciated. (4) Stroke-like symptom Current Visit: Yes Status: Acute Assessment and Plan: Patient had complaint of right sided weakness Has previous left sided CVA at this facility October 2018 with subsequent right sided weakness May also be related to sepsis and resolving previous stroke Stroke alert called in ED- out of window for TPA CT and MRI as above Neuro following Continue aspirin, statin, plavix. Further recommendations per neuro. PT/OT consulted. (5) ESRD on dialysis Current Visit: Yes Status: Chronic Assessment and Plan: Sunday, , Sunday HD schedule. HD per nephrology. Low BPs recorded in dialysis today, possibly d/t poor BP cuff placement? Monitor BPs with goal being normotensive, currently in permissive HTN for acute CVA (6) Diabetes mellitus Current Visit: Yes Status: Chronic Assessment and Plan: Slightly hypoglycemic on date of admission, serum glucose in 50's Check Hgb A1c in morning. Low-dose sliding scale insulin available for glucose correction if needed. Check POC glucose TID AC. Hypoglycemia orders per protocol. ADA diet modifications. (7) Anemia Current Visit: Yes Status: Chronic Assessment and Plan: Stable. Hgb 9.9 on admission, Hgb 8.5 on recheck. Most recent baseline Hgb 9-10. Macrocytic and normochromic No overt signs of acute bleed observed, suspect anemia of chronic disease. (8) Sepsis Current Visit: Yes Status: Resolved Assessment and Plan: Resolved. Sepsis criteria met on admission (see above). Will continue to monitor for signs of sepsis. - Time Spent with Patient Total time spent is greater than 50% in coordination of care (as documented) at patient's floor/unit and/or counseling patient: Internal Medicine: Result - Labs CBC & Chem 7: 10/22/18 04:58 10/22/18 04:58 Labs: Short CBC 10/21/18 10/22/18 Range/Units 06:36 04:58 WBC 8.7 7.5 (4.3-11.1) K/mcL Hgb 8.5 L 8.6 L (12.9-16.9) g/dL Hct 26.9 L 26.9 L (37.5-50.1) % Plt Count 259 256 (140-400) K/mcL Neutrophils # 5.7 (1.6-8.9) K/mcL BMP 10/21/18 10/21/18 10/22/18 06:36 09:00 04:58 Sodium 141 142 141 Potassium 5.1 5.1 5.8 H Chloride 109 H 107 108 H Carbon Dioxide 26 25 22 L BUN 59 H 58 H 67 H Creatinine 6.10 H 5.96 H 6.50 H Glucose 53 L 51 L 107 H Calcium 8.5 L 8.6 8.6 Liver Function 10/21/18 Range/Units 09:00 Albumin 3.1 L (3.5-5.7) g/dL - ABG Interpretation ABG results: PT/INR, D-dimer PT 12.0 Seconds (9.4-12.1) 10/20/18 19:50 - Impressions Impressions Chest CTA 10/21/18 00:00 IMPRESSION: Patient respiratory motion artifact limited exam without definite evidence for pulmonary embolism as above. Dense consolidations bilateral lower lobes, left more than right, along with some smaller more patchy areas of consolidation to the superior segments of the bilateral lower lobes as well as posteriorly to the left upper lobe. Findings may be on the basis of atelectasis, multifocal pneumonia and/or aspiration pneumonitis or some combination thereof. Clinical correlation and continued follow-up recommended. Trace left pleural effusion. Stable cardiomegaly. Atherosclerosis to include coronary artery disease. Cholelithiasis. D/ / 10/21/2018 07:06:46 Devon Leblanc MD / [facility] Interpreting Provider: Devon Leblanc MD Brain MRI 10/21/18 06:38 IMPRESSION: 1. Resolving subacute left pontine infarction, decreased in size and conspicuity compared to prior MRI from 10/07/2018. 2. focus of diffusion restriction within the left temporal lobe consistent with acute/subacute lacunar infarction, new compared to prior MRI. This is discussed with the neurology unit nurse practitioner at 1:20 p.m. on 10/21/2018. 3. Parenchymal volume loss and sequela of mild chronic microvascular ischemic changes. Old lacunar infarctions. 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; Z79.4 - halfway (current) use of insulin (3) CVA (cerebral vascular accident) Qualifiers: CVA mechanism: unspecified Qualified Code(s): I63.9 - Cerebral infarction, unspecified (7) Altered mental status Qualifiers: Altered mental status type: unspecified Qualified Code(s): R41.82 - Altered mental status, unspecified <Ciara Dee - Last Filed: 10/22/18 17:57> (6) Diabetes mellitus Qualifiers: Diabetes mellitus type: type 2 Diabetes mellitus jail insulin use: with jail use Diabetes mellitus complication status: with kidney complications Diabetes mellitus complication detail: with chronic kidney disease Chronic kidney disease stage: unspecified stage Qualified Code(s): E11.22 - Type 2 diabetes mellitus with diabetic chronic kidney disease; Z79.4 - halfway (current) use of insulin (7) Anemia Qualifiers: Anemia type: unspecified type Qualified Code(s): D64.9 - Anemia, unspecified (8) Sepsis Qualifiers: Sepsis type: sepsis due to unspecified organism Qualified Code(s): A41.9 - Sepsis, unspecified organism
--- NOTE | 2018-10-22 09:02 | Neurology Progress Note ---
Date of Encounter: 10/22/18 Time of Encounter: 08:59 Assessment and Plan (1) Stroke-like symptom Current Visit: Yes Status: Acute (2) Altered mental status Current Visit: Yes Status: Acute Qualifiers: Qualified Code(s): R41.82 - Altered mental status, unspecified (3) Acute CVA (cerebrovascular accident) Current Visit: Yes Status: Acute Neurology consulted to provide further recommendations in the setting of an acute CVA. The patient was developed an acute small ischemic infarct in the left insular and medial temporal lobe. He was recently seen and treated at [facility] in early 10/23 for left pontine infarct. This admission CTA of the head and neck are unremarkable for flow limiting stenosis. Upon review of prior admission data TTE reveals an EF of 35% with wall motion abnormalities placing the patient at risk for embolic event in the future. Recommendations at this juncture her to continue aspirin and start the patient on oral anticoagulation. Discontinue Plavix. Assessment discussed with the patient who would like to discuss these recommendations with his given history of GI bleed. We will reevaluate his incision at the later time. In the interim continue with dual platelet therapy aspirin and Plavix. C/W statin. Continue with medical supportive care. Neurology will follow Subjective Principal diagnosis: Acute CVA Interval history: This patient was seen by neurology services in follow-up for an acute CVA. In brief he has had a recent CVA in early October 2018 resulting in right-sided weakness. He really presents with increasing right-sided weakness and acute left-sided weakness in the setting of sepsis and pneumonia. An MRI of the brain was obtained revealing an acute infarct in the left insula. Yesterday evening he was reevaluated and found to be somnolent. This is resolved as of this morning and the patient is awake alert and oriented 2. No further neurological deficits are found on examination. I discussed neurology's recommendations for oral anticoagulation with setting every strokes, severely reduced EF, wall motion abnormalities and risk for an embolic event. The patient sates that he wishes to discuss this with his family due to a history of GI bleed and concerns of bleeding on oral anticoagulation. We will reevaluate at a later time to discuss continuing DAPT versus oral anticoagulation. Objective - Constitutional Vitals: Temp Pulse Resp BP Pulse Ox 98.1 F 77 14 170/79 98 10/22/18 06:45 10/22/18 06:45 10/22/18 06:45 10/22/18 06:45 10/22/18 06:45 Exam: Examination: General Examination: *CONSTITUTIONAL: Alert and oriented x2, no acute distress *GENERAL APPEARANCE OF PATIENT obese and generally ill and frail appe aring elderly male *EYES: pupils equal, round, reactive to light and accommodation, conjunctiva clear *CARDIOVASCULAR no peripheral edema, distal temperature normal, dorsalis pedis pulses normal. See vitals Musculoskeletal: *GAIT AND STATION deferred due to generalized weakness; high risk for falls *ASSESSMENT OF MUSCLE STRENGTH IN THE UPPER AND LOWER EXTREMITIES right deltoid, bicep, tricep, market research consultant strength, hip flexors ,anterior tibialis, dorsoflexion of the foot 3/5. - - Left deltoid, bicep, tricep, market research consultant strength, hip flexor, anterior tibialis and dorsiflexion of the left foot 3/5 *MUSCLE TONE IN THE UPPER AND LOWER EXTREMITIES atrophy present in bilat eral hands along the radial nerve. On examination today the patient is demonstrating asterixis bilateral hands. Neurological: *ORIENTATION to person, situation, and place but disoriented to date *RECURRENT AND REMOTE MEMORY is somewhat altered. He has trouble recalling recent events surrounding admission but with gentle prompting he is able to recollect events if given time. *ATTENTION AND CONCENTRATION continues to be somewhat distracted requiring reorientation *LANGUAGE FUNCTION no significant aphasia or dysarthia was noted. *FUND OF KNOWLEDGE aware of current events, past history, vocabulary *MENTAL attention span and concentration abnormal. see above *CN II optic fundi were normal, no papilledema noted. *CN III,IV, PERRLA extraocular eye movements were full, no nystagmus and no ptosis noted. *CN V shows normal sensation and jaw opens symmetrically. *CN VII shows normal facial movement symmetrically, upper and lower bilaterally. *CN VIII shows no significant hearing loss on exam *CN IX,,X palate elevated symmetrically *CN XI normal strength in the sternocleidomastoid muscles, mild right-s ided asymmetry with shoulder shrugging. *CN XII tongue protruded in the midline, with normal strength and movement. *SENSORY EXAMINATION light touch intact *REFLEXES: deep tendon reflexes were normal and symmetrical , grade 2/4 diffusely, no pathological reflexes were noted. *CEREBELLAR TESTING abnormal finger to nose with left arm dysmetria. Additionally, patient has left arm drift. There is also right arm dysmetria without drift. *PAIN LEVEL 0/10 Results - Laboratory Findings CBC and BMP: 10/22/18 04:58 10/22/18 04:58 Abnormal lab findings: Abnormal lab results RBC 2.62 M/mcL (4.19-5.50) L 10/22/18 04:58 Hgb 8.6 g/dL (12.9-16.9) L 10/22/18 04:58 Hct 26.9 % (37.5-50.1) L 10/22/18 04:58 MCV 102.7 fL (83.0-100.0) H 10/22/18 04:58 9.0 K/mcL (1.6-8.9) H 10/20/18 19:50 Potassium 5.8 mEq/L (3.5-5.1) H 10/22/18 04:58 Chloride 108 mEq/L (98-107) H 10/22/18 04:58 Carbon Dioxide 22 mEq/L (23-29) L 10/22/18 04:58 BUN 67 mg/dL (8-23) H 10/22/18 04:58 6.50 mg/dL (0.70-1.30) H 10/22/18 04:58 Est GFR ( Amer) 10 (> 60) L 10/22/18 04:58 Est GFR (Non-Af Amer) 8 (> 60) L 10/22/18 04:58 Glucose 107 mg/dL (70-105) H 10/22/18 04:58 POC Glucose 117 mg/dL (70-99) H 10/21/18 19:55 312 (280-300) H 10/22/18 04:58 Calcium 8.5 mg/dL (8.6-10.3) L 10/21/18 06:36 Phosphorus 5.8 mg/dL (2.7-4.5) H 10/21/18 09:00 AST 9 Units/L (13-39) L 10/20/18 19:50 ALT < 3 Units/L (7-52) L 10/20/18 19:50 3.1 g/dL (3.5-5.7) L 10/21/18 09:00 100 mg/dL (Neg-Trace) H 10/20/18 Unknown >=1000 mg/dL (Normal) H 10/20/18 Unknown 5-15 per hpf (0-3) H 10/20/18 Unknown Ur Squamous Epith Cells Moderate per lpf (None-Few) H 10/20/18 Unknown Consult Discharge Plan - Plan Referrals: Raoul Gaona DO [Primary Care Provider] -
--- NOTE | 2018-10-22 11:44 | Nephrology Progress Note ---
Date of Encounter: 10/22/18 Time of Encounter: 11:44 - Assessment and Plan (1) Anemia Current Visit: Yes Status: Chronic Qualifiers: Anemia type: unspecified type Qualified Code(s): D64.9 - Anemia, u nspecified (2) Diabetes mellitus Current Visit: Yes Status: Chronic Qualifiers: Diabetes mellitus type: type 2 Diabetes mellitus alf insulin use: with alf use Diabetes mellitus complication status: with kidney complications Diabetes mellitus complication detail: with chronic kidney disease Chronic kidney disease stage: unspecified stage Qualified Code(s): E11.22 - Type 2 diabetes mellitus with diabetic chronic kidney disease; 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 Renal vitamins. Renal dose medications. Renal diet. Additional dialysis and ultrafiltration as needed. Patient seen on dialysis. Subjective Principal diagnosis: Acute CVA Interval history: Patient seen. No new complaint. ROS stable Objective - Vital Signs Vital signs: Vital Signs Temp Pulse Resp BP Pulse Ox 10/22/18 11:20 113/42 10/22/18 11:05 127/55 10/22/18 10:50 142/86 10/22/18 10:35 162/44 10/22/18 10:20 137/84 10/22/18 10:05 160/66 10/22/18 09:50 130/83 10/22/18 09:35 97.7 F 16 145/79 10/22/18 06:45 98.1 F 77 14 170/79 98 10/22/18 03:54 98.4 F 82 17 141/80 99 10/22/18 00:49 98.1 F 79 14 170/87 96 10/21/18 20:27 97 10/21/18 19:50 97.7 F 75 15 131/53 98 10/21/18 15:04 98.0 F 74 16 130/57 96 10/21/18 12:17 97.9 F 76 16 102/39 96 Intake and Output 10/21/18 10/22/18 10/22/18 23:59 07:59 15:59 Intake Total 460 / 2860 0 / 720 720 / 720 Output Total 0 / 0 0 / 0 Balance 460 / 2860 0 / 720 720 / 720 Intake: IV Fluids 100 / 2500 Zosyn 3.375 GM In 0.9 % Sodium 100 / 100 Chloride (Mini-Bag +) 100 ML @ 25 mls/hr IVPB Q12H DANETTE Rx#: [id number] Oral 360 / 360 0 / 120 120 / 120 Intake, Rinseback and Flushes 600 / 600 Output: Urine 0 / 0 0 / 0 Other: Meal Dinner Breakfast Percent of Meal Consumed 100% 75% # Voids 4 # Urine Diapers 1 Weight 96.9 kg Blood Glucose* 117 104 95 Hemodialysis Net Fluid Removed 1800 (mL) Patient Weight 10/22/18 23:59 Weight 96.9 kg - General Appearance General appearance: Present: well-developed, well-nourished Neck: Present: supple Cardiology: Present: regular rate Integumentary: Present: warm and dry Neurologic: Present: alert and oriented x3 Psychiatric: Present: mood/affect appropriate - Lab 10/22/18 04:58 10/22/18 04:58 Most recent lab results 10/22/18 04:58 Calcium 8.6 Consult Discharge Plan - Plan Referrals: Raoul Gaona DO [Primary Care Provider] -
--- NOTE | 2018-10-22 17:50 | Electrocardiograph Report ---
[address] [address] Test Date: 2018-10-20 Pat Name: Alexander Anguiano Department: EXAM4 Room: 2NE35 Gender: M Autotransfusionist: : 1945 Requested By: Sloane Arzola Order Number: [id number] Reading MD: Kendal Foley Measurements Intervals [place] Rate: 101 P: 0 LA: 56 QRS: 71 QRSD: 118 T: -61 QT: 334 QTc: 433 Interpretive Statements Sinus tachycardia Nonspecific intraventricular conduction delay Inferior infarct, age indeterminate Electronically Signed On 10-22-2018 17:48:33 EDT by Kendal Foley
[2018-10-22] MEDS ORDERED: Levofloxacin 500 MG/100 ML 500 MG/100 ML BAG IVPB SCH (20:00)
[2018-10-22] MEDS: Pregabalin 50 MG CAPSULE PO SCH (20:25)
[2018-10-23] MEDS: Piperacillin/Tazobactam 3.375 GM in 0.9 % Sodium Chloride Mini Bag 100 ML IVPB SCH ×2 (04:00→12:58)
[2018-10-23 04:35] LABS: Basophils % 0.6 %; Eosinophils # 0.2 K/mcL (0.0-0.6); Eosinophils % 4.7 %; Hematocrit 26.4 % (37.5-50.1); Hemoglobin 8.5 g/dL (12.9-16.9); Immature Granulocytes % 0.6 % (0-4); Lymphocytes # 1.4 K/mcL (0.6-4.6); Lymphocytes % 26.3 %; Mean Corpuscular HGB Conc 32.2 g/dL (31.6-35.5); Mean Corpuscular Hemoglobin 32.6 pg (28.0-33.3); Mean Corpuscular Volume 101.1 fL (83.0-100.0); Mean Platelet Volume 9.7 fL (9.4-12.4); Monocytes # 0.5 K/mcL (0.0-1.3); Monocytes % 9.7 %; Platelet Count 256 K/mcL (140-400); Red Blood Count 2.61 M/mcL (4.19-5.50); Red Cell Distribution Width 13.3 % (11.5-14.5); Segmented Neutrophils % 58.1 %; White Blood Count 5.1 K/mcL (4.3-11.1)
[2018-10-23 04:42] LABS: INR 1.1; Prothrombin Time 12.7 Seconds (9.4-12.1)
[2018-10-23 04:51] LABS: Chol/HDL Ratio 4.4 (0-4.9)
[2018-10-23 04:52] LABS: Calcium 8.5 mg/dL (8.6-10.3); Potassium 4.7 mEq/L (3.5-5.1)
[2018-10-23 07:02] LABS: Estimated Average Glucose 280 mg/dl
[2018-10-23] MEDS: Aspirin Enteric Coated 81 MG Tablet PO SCH (07:56)
[2018-10-23] MEDS: Calcium Acetate 667 MG CAPSULE PO SCH ×3 (07:56→16:30)
[2018-10-23] MEDS: Rivastigmine Patch 9.5 MG PATCH.TD24 TP SCH (07:57)
[2018-10-23] MEDS: carBAMazepine 200 MG TABLET PO SCH ×3 (07:57→22:10)
[2018-10-23] MEDS: Finasteride 5 MG TABLET PO SCH (07:57)
[2018-10-23] MEDS: Carbidopa/Levodopa 25/100 TABLET PO SCH ×2 (07:57→22:10)
[2018-10-23] MEDS: Insulin LISPRO 300 UNITS/3 ML VIAL SQ SCH ×4 (07:58→22:10)
--- NOTE | 2018-10-23 09:12 | Internal Med Progress Note ---
<[facility] - Last Filed: 10/23/18 18:21> Hospitalist Progress Note - Encounter Date of Encounter: 10/23/18 - Exam Vitals: Temp Pulse Resp BP Pulse Ox 98 F 81 18 163/64 94 10/23/18 16:29 10/23/18 16:29 10/23/18 16:29 10/23/18 16:29 10/23/18 16:29 - Assessment and Plan (1) Diabetes mellitus Current Visit: Yes Status: Chronic (2) DVT prophylaxis Current Visit: No Status: Acute (3) CVA (cerebral vascular accident) Current Visit: Yes Status: Suspected (4) ESRD on dialysis Current Visit: Yes Status: Chronic (5) Multifocal pneumonia Current Visit: Yes Status: Acute (6) Stroke-like symptom Current Visit: Yes Status: Acute (7) Altered mental status Current Visit: Yes Status: Acute - Time Spent with Patient Total time spent is greater than 50% in coordination of care (as documented) at patient's floor/unit and/or counseling patient: Internal Medicine: Result - Labs CBC & Chem 7: 10/23/18 04:00 10/23/18 04:00 Labs: Short CBC 10/23/18 Range/Units 04:00 WBC 5.1 (4.3-11.1) K/mcL Hgb 8.5 L (12.9-16.9) g/dL Hct 26.4 L (37.5-50.1) % Plt Count 256 (140-400) K/mcL Neutrophils # 3.0 (1.6-8.9) K/mcL BMP 10/23/18 04:00 Sodium 139 Potassium 4.7 Chloride 100 Carbon Dioxide 29 BUN 43 H Creatinine 4.77 H Glucose 156 H Calcium 8.5 L - ABG Interpretation ABG results: PT/INR, D-dimer PT 12.7 Seconds (9.4-12.1) H 10/23/18 04:00 Consult Discharge Plan - Plan Referrals: Raoul Gaona DO [Primary Care Provider] - - Attending Attestation I examined this patient and my medical decision-making was reviewed with the Resident Physician on 10/23/18. I agree with the documented findings, disposition and treatment plan as described except to the extent set forth below. Mr Anguiano is up in a chair. He is tearful and says he needs his depression meds. He is talking about his aspirin having been stopped in the past. No fever or chills. Breathing appears to be improving. Exam as below. Plan continue abx for aspiration pneumonia (presumed) try PO today and reassess tomorrow. Discussion regarding anticoagulation. Discharge planning. 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 Some neck pain/stiffness overnight, but better since he's been able to get out of bed and into chair. Feels like his breathing has improved since admission. Appeared to be in a good mood, but became tearful when subject of anticoagulation risks/benefits came up and upset he's had 2 strokes. States was taking ASA for 18 years and then a doctor took his ASA away--unclear who the doctor was and when exactly his ASA was discontinued. Denies cough, fevers, chills, chest pain, nausea, abdominal pain. - Exam Vitals: Temp Pulse Resp BP Pulse Ox 98.2 F 74 17 158/69 98 10/23/18 07:07 10/23/18 07:07 10/23/18 07:07 10/23/18 07:07 10/23/18 07:07 Exam: General: vital signs noted, no acute distress Head: normocephalic, atraumatic Eyes: EOMI, PERRL, sclera anicteric ENT: moist mucous membranes Neck: supple, trachea midline Cardio: RRR; no murmurs, gallops, rubs; + S1/S2; no edema Chest: symmetric chest rise Pulm: no respiratory distress, CTAB, no wheezes/rhonchi/rales, supplemental O2 b y NC Abd: soft, nontender, nondistended, normal bowel sounds, no rebound/rigidity/guarding Neuro: CN II-XII grossly intact; Tremor present. RUE pronator drift. No speech deficit or facial droop. Moves all extremities spontaneously; oriented to self and place, answers questions appropriately Ext: no lower extremity edema; 2+/4 pedal pulses equal bilaterally, no gross deformities MSK: no visible deformities, no joint swelling Psych: flat affect, cooperative, depressed mood Skin: warm, dry, intact; no rash, vesicles, mottling, pallor - Assessment and Plan (1) Acute CVA (cerebrovascular accident) Current Visit: Yes Status: Acute Assessment and Plan: - [facility] stroke team felt pt's altered mental status and weakness were most likely the result of sepsis from multifocal PNA. - Head CT showed no acute intracranial abnormality; redemonstration of left- sided pontine infarct and mild, chronic small vessel ischemic changes of white matter. - CTA head and neck negative for hemodynamically significant stenosis, occlusion, or aneurysm. - 10/21/18 *Radiology re-read brain MRI and concluded area of diffusion restriction in left temporal lobe was consistent with acute or subacute infarction* - Neuro recommending medical management and oral AC. - Anticoagulation risks/benefits discussed again, decision not reached yet between pt and family--pt gives impression he wants anticoagulation but family disagrees? - Pt stated a doctor took away his ASA that he'd been taking for 18 years; unclear who this doctor was and exactly when pt stopped taking ASA--if this is the case it may have contributed to his recent strokes. - Coordinate discussion to decide on AC with pt, his , and family members all present at same time. - Continue ASA, plavix, statin, EPCDs for now. (2) Multifocal pneumonia Current Visit: Yes Status: Acute Assessment and Plan: Initially met sepsis criteria on admission: temp 101.3, HR 101 with suspected cause of PNA, possibly due to aspiration Chest x-ray showed bilateral opacities. Chest CT angiogram showed dense consolidations in the bilateral lower lobes, left more than right. No leukocytosis, no fever since admission. Blood cultures NGTD. Sputum culture pending collection. + MRSA nasal swab. Discontinue IV zosyn and vancomycin Start Augmentin and doxycycline oral regimen Reevaluate response tomorrow (3) Acute encephalopathy Current Visit: Yes Status: Resolved Assessment and Plan: Resolved. Etiology unclear: sepsis secondary to multifocal PNA vs ischemic event vs metabolic [facility] stroke team felt pt's altered mental status and weakness were most likely the result of sepsis from multifocal PNA. As above. (4) Stroke-like symptom Current Visit: Yes Status: Acute Assessment and Plan: Patient had complaint of right sided weakness Has previous left sided CVA at this facility October 2018 with subsequent right sided weakness Stroke alert called in ED- out of window for [facility] Imaging as above. PT/OT consulted--recommend SNF/ECF As above. SW helping to coordinate discharge, return to SNF/ECF. Continue aspirin, statin, plavix, epcd's for now. (5) ESRD on dialysis Current Visit: Yes Status: Chronic Assessment and Plan: Sunday, , Sunday HD schedule. HD per nephrology. (6) Diabetes mellitus Current Visit: Yes Status: Chronic Assessment and Plan: HgbA1c this admission 11% Slightly hypoglycemic on date of admission, serum glucose in 50's POC glucoses averaging mid-100's, has been < 200 so far this admission and no sliding scale insulin has been required Reevaluate home meds for glucose control prior to discharge. Low-dose sliding scale insulin available for glucose correction if needed. Check POC glucose TID AC. Hypoglycemia orders per protocol. ADA diet modifications. (7) Anemia Current Visit: Yes Status: Chronic Assessment and Plan: Stable. Hgb 9.9 on admission, Hgb 8.5 on recheck. Most recent baseline Hgb 9-10. Macrocytic and normochromic No overt signs of acute bleed observed, suspect anemia of chronic disease. (8) Sepsis Current Visit: Yes Status: Resolved Assessment and Plan: Resolved. Sepsis criteria met on admission (see above). Will continue to monitor for signs of sepsis. DVT Prophylaxis: epcd's - Time Spent with Patient Total time spent is greater than 50% in coordination of care (as documented) at patient's floor/unit and/or counseling patient: Internal Medicine: Result - Labs CBC & Chem 7: 10/23/18 04:00 10/23/18 04:00 Labs: Short CBC 10/23/18 Range/Units 04:00 WBC 5.1 (4.3-11.1) K/mcL Hgb 8.5 L (12.9-16.9) g/dL Hct 26.4 L (37.5-50.1) % Plt Count 256 (140-400) K/mcL Neutrophils # 3.0 (1.6-8.9) K/mcL BMP 10/23/18 04:00 Sodium 139 Potassium 4.7 Chloride 100 Carbon Dioxide 29 BUN 43 H Creatinine 4.77 H Glucose 156 H Calcium 8.5 L - ABG Interpretation ABG results: PT/INR, D-dimer PT 12.7 Seconds (9.4-12.1) H 10/23/18 04:00 <[facility] - Last Filed: 10/23/18 18:21> (1) Diabetes mellitus Qualifiers: Diabetes mellitus type: type 2 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: with brush trimming machine setter use Diabetes mellitus complication status: with kidney complications Diabetes mellitus complication detail: with chronic kidney disease Chronic kidney disease stage: unspecified stage Qualified Code(s): E11.22 - Type 2 diabetes mellitus with diabetic chronic kidney disease; Z79.4 - commutator repairer (current) use of insulin (3) CVA (cerebral vascular accident) Qualifiers: CVA mechanism: unspecified Qualified Code(s): I63.9 - Cerebral infarction, unspecified (7) Altered mental status Qualifiers: Altered mental status type: unspecified Qualified Code(s): R41.82 - Altered mental status, unspecified <Ciara Dee - Last Filed: 10/23/18 19:50> (6) Diabetes mellitus Qualifiers: Diabetes mellitus type: type 2 Diabetes mellitus fci insulin use: with brush trimming machine setter use Diabetes mellitus complication status: with kidney complications Diabetes mellitus complication detail: with chronic kidney disease Chronic kidney disease stage: unspecified stage Qualified Code(s): E11.22 - Type 2 diabetes mellitus with diabetic chronic kidney disease; Z79.4 - senior care (current) use of insulin (7) Anemia Qualifiers: Anemia type: unspecified type Qualified Code(s): D64.9 - Anemia, unspecified (8) Sepsis Qualifiers: Sepsis type: sepsis due to unspecified organism Qualified Code(s): A41.9 - Sepsis, unspecified organism
[2018-10-23] MEDS ORDERED: Bisacodyl 10 MG RECTAL SUPPOSITORY RC PRN (13:24)
[2018-10-23] MEDS: Sennosides/Docusate Sodium TABLET PO SCH (16:29)
[2018-10-23] MEDS ORDERED: Aminoglycoside Consult 1 EACH MC ONE (18:39)
[2018-10-23] MEDS ORDERED: Piperacillin/Tazobactam 3.375 GM in 0.9 % Sodium Chloride Mini Bag 100 ML IVPB SCH (19:09)
[2018-10-23] MEDS: Doxycycline 100 MG CAPSULE PO SCH (22:10)
[2018-10-23] MEDS: Pregabalin 50 MG CAPSULE PO SCH (22:10)
--- NOTE | 2018-10-23 22:31 | Nephrology Progress Note ---
Date of Encounter: 10/23/18 Time of Encounter: 22:29 - Assessment and Plan (1) ESRD on dialysis Current Visit: Yes Status: Chronic HD TRS. Renal vitamins. Renal dose medications. Renal diet. Additional dialysis and ultrafiltration as needed. 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 No new complaint. ROS stable Objective - Vital Signs Vital signs: Vital Signs Temp Pulse Resp BP Pulse Ox 10/23/18 21:41 97.4 F L 81 14 144/52 94 10/23/18 16:29 98 F 81 18 163/64 94 10/23/18 11:53 98.2 F 82 17 128/76 99 10/23/18 07:07 98.2 F 74 17 158/69 98 10/23/18 03:58 98.2 F 73 17 126/76 97 Intake and Output 10/23/18 10/23/18 10/23/18 07:59 15:59 23:59 Intake Total 0 / 220 220 / 220 Balance 0 / 220 220 / 220 Intake: IV Fluids 100 / 100 Zosyn 3.375 GM In 0.9 % Sodium 100 / 100 Chloride (Mini-Bag +) 100 ML @ 25 mls/hr IVPB Q12H DANETTE Rx#: [id number] Oral 0 / 120 120 / 120 Other: Meal Breakfast Dinner Percent of Meal Consumed 100% 0% # Urine Diapers 1 1 Weight 92.3 kg Blood Glucose* 161 189 188 Patient Weight 10/23/18 23:59 Weight 92.3 kg - General Appearance General appearance: Present: well-developed, well-nourished EENT: Present: ATNC Neck: Present: supple Cardiology: Present: regular rate Neurologic: Present: alert and oriented x3 Psychiatric: Present: mood/affect appropriate - Lab 10/23/18 04:00 10/23/18 04:00 Consult Discharge Plan - Plan Referrals: Raoul Gaona DO [Primary Care Provider] -
[2018-10-24 04:56] LABS: Basophils % 0.6 %; Eosinophils # 0.3 K/mcL (0.0-0.6); Eosinophils % 5.3 %; Hematocrit 26.2 % (37.5-50.1); Hemoglobin 8.6 g/dL (12.9-16.9); Immature Granulocytes % 0.6 % (0-4); Lymphocytes # 1.3 K/mcL (0.6-4.6); Lymphocytes % 26.5 %; Mean Corpuscular HGB Conc 32.8 g/dL (31.6-35.5); Mean Corpuscular Hemoglobin 32.8 pg (28.0-33.3); Mean Platelet Volume 9.9 fL (9.4-12.4); Monocytes # 0.4 K/mcL (0.0-1.3); Monocytes % 8.7 %; Neutrophils # 2.7 K/mcL (1.6-8.9); Platelet Count 258 K/mcL (140-400); Red Blood Count 2.62 M/mcL (4.19-5.50); Red Cell Distribution Width 13.2 % (11.5-14.5); Segmented Neutrophils % 58.3 %; White Blood Count 4.7 K/mcL (4.3-11.1)
[2018-10-24 05:12] LABS: Calcium 9.1 mg/dL (8.6-10.3); Potassium 5.2 mEq/L (3.5-5.1)
[2018-10-24] MEDS ORDERED: 0.9 % Sodium Chloride 1,000 ML ONE (07:16)
[2018-10-24] MEDS ORDERED: 0.9 % Sodium Chloride 250 ML IVC PRN (07:39)
[2018-10-24] MEDS ORDERED: *HR* Heparin 10,000 UNIT/10 ML VIAL IV PRN (07:39)
[2018-10-24] MEDS: Insulin LISPRO 300 UNITS/3 ML VIAL SQ SCH ×4 (08:23→21:11)
[2018-10-24] MEDS: Rivastigmine Patch 9.5 MG PATCH.TD24 TP SCH (08:24)
[2018-10-24] MEDS: Calcium Acetate 667 MG CAPSULE PO SCH ×3 (08:25→17:02)
[2018-10-24] MEDS: carBAMazepine 200 MG TABLET PO SCH ×3 (08:26→21:11)
[2018-10-24] MEDS: Doxycycline 100 MG CAPSULE PO SCH ×2 (12:44→21:11)
[2018-10-24] MEDS: Finasteride 5 MG TABLET PO SCH (12:45)
[2018-10-24] MEDS: Acetaminophen 325 MG TABLET PO PRN ×2 (12:45→21:15)
[2018-10-24] MEDS: Aspirin Enteric Coated 81 MG Tablet PO SCH (12:45)
[2018-10-24] MEDS: Carbidopa/Levodopa 25/100 TABLET PO SCH ×2 (12:45→21:11)
[2018-10-24] MEDS: Sennosides/Docusate Sodium TABLET PO SCH (12:46)
--- NOTE | 2018-10-24 13:25 | Discharge Summary ---
<Clau Mujica - Last Filed: 10/24/18 14:05> - NOTES TO OUTPATIENT PROVIDER Notes to Outpatient Provider: - Patient presents with second CVA in the past 2 weeks. Per neurology recommendation, patient should be discharged with aspirin and oral anticoagulation. However, discussion between patient and /family is still pending. At this time, they will opt to follow-up with primary care physician regarding starting anticoagulation due to history of GI bleed/fall risk. We will continue with aspirin and Plavix at time of discharge. Recommend early reevaluation with primary care physician. - Patient currently being treated with Augmentin and doxycycline for treatment of suspected aspiration pneumonia and MRSA infection. Has currently received antibiotics for the past 5 days. We will continue for 5 more days with both medications. Orders not resulted at time of discharge: Pending orders 10/20/18 20:00 Culture,Blood [BC] Stat 10/20/18 23:16 Culture,Blood [BC] Stat 10/21/18 11:15 Sputum Culture [Culture,Sputum with Gram Stain] [RM] Routine 10/25/18 04:00 BMP [Basic Metabolic Panel] AM 0400 Complete Blood Count w/o Diff [HEME] AM 0400 10/26/18 04:00 BMP [Basic Metabolic Panel] AM 0400 Complete Blood Count w/o Diff [HEME] AM 0400 10/27/18 04:00 BMP [Basic Metabolic Panel] AM 0400 Complete Blood Count w/o Diff [HEME] AM 0400 10/28/18 04:00 BMP [Basic Metabolic Panel] AM 0400 Complete Blood Count w/o Diff [HEME] AM 0400 10/29/18 04:00 BMP [Basic Metabolic Panel] AM 0400 Complete Blood Count w/o Diff [HEME] AM 0400 10/30/18 04:00 BMP [Basic Metabolic Panel] AM 0400 Complete Blood Count w/o Diff [HEME] AM 0400 Date of Encounter: 10/24/18 Time of Encounter: 13:22 - Discharge Diagnosis (1) Acute CVA (cerebrovascular accident) Priority: Primary Status: Acute (2) Acute encephalopathy Priority: Secondary Status: Resolved (3) Anemia Priority: Secondary Status: Chronic Qualifiers: Anemia type: unspecified type Qualified Code(s): D64.9 - Anemia, unspecified (4) Diabetes mellitus Priority: Secondary Status: Chronic Qualifiers: Diabetes mellitus type: type 2 Diabetes mellitus custodial insulin use: with custodial use Diabetes mellitus complication status: with kidney complications Diabetes mellitus complication detail: with chronic kidney disease Chronic kidney disease stage: unspecified stage Qualified Code(s): E11.22 - Type 2 diabetes mellitus with diabetic chronic kidney disease; Z79.4 - watermelon inspector (current) use of insulin (5) Multifocal pneumonia Priority: Secondary Status: Acute (6) Sepsis Priority: Secondary Status: Resolved Qualifiers: Sepsis type: sepsis due to unspecified organism Qualified Code(s): A41.9 - Sepsis, unspecified organism (7) Stroke-like symptom Priority: Secondary Status: Acute Hospital course: Mr. Anguiano is a 73 year old male with past medical history significant for previous CVA, diabetes, glaucoma, hyperlipidemia, hypertension, ESRD who initially presented [facility] from [facility] due to altered mental status. Patient with history of right-sided CVA, and was recently admitted and discharged from hospital about a week and a half ago. Patient presents to the ED with altered mental status and left-sided weakness, and had been complaining of cough and congestion for a putative cardiac resuscitation. Initially in the ED, patient's temp = 101.3. Patient had mildly elevated K = 5.3. Urinalysis also showed glucose greater than 1000, but negative for infection. Head CT was is initially showing no acute intracranial abnormality. Chest x-ray showed bilateral opacities. Chest CT angiogram shows dense consolidations in the bilateral lower lobes left greater than right. CT angiogram of head and neck showed no hemodynamically significant stenosis, occlusion, aneurysm. On presentation in the ED stroke alert was called. [facility]y was consulted, and they suspected that patient's presentation was most likely related to sepsis and less likely stroke. Patient received femoral central line. Blood cultures drawn. Started on cefepime, Levaquin, vancomycin. Fluids were given. Admitted to the hospital. In the hospital, patient was initially treated for bibasilar pneumonia. His sepsis resolved, and given history of systolic CHF, no further IV fluids were given. MRI of the brain was done, and initially read as negative for stroke. However radiology been updated their initial read to include possible acute or subacute infarction in the left temporal lobe. At that time, patient was outside of the window for TPA/intervention. Discussion was had between neurology and family. Initially no anticoagulation was started. Patient had history of prior GI bleed and was a fall risk. There is need for continued discussion between family and patient. Patient was continued on aspirin and Plavix. Meanwhile, nephrology was consulted given patient's history of end- stage renal disease. Patient was continued on hemodialysis. Patient improved over course of hospital stay. He remained afebrile, and breathing improved. Oxygen saturation was appropriate on room air. Plan to continue with by mouth antibiotics for presumed aspiration pneumonia and MRSA infection. Per discussion with social work, plan to discharge patient back to extended care facility. Met with family for extended discussion regarding resumption of anticoagulation. Per neurology, they recommend anticoagulation plus aspirin and discontinuation of Plavix. However given patient's history of GI bleeds and his fall risk, family was undecided regarding restarting anticoagulation. After lengthy discussion, patient opted to follow-up with his primary care physician regarding resumption of anticoagulation. Plans to follow-up with primary care physician within one week. Until then, will be discharged with aspirin and Plavix. Recommend close follow-up, and coming to consensus on decision for anticoagulation within the week. Discharge discussed with: patient, family - Time Spent with Patient Total time spent providing and/or coordinating discharge services: Time spent: Greater than 30 minutes - Discharge Medications Prescriptions: New Amoxicillin/Clavulanate [Augmentin] 500 mg PO Q24H tablet Doxycycline 100 mg PO BID capsule Ipratropium/Albuterol Neb [Duoneb] 3 ml IH [id number] PRN inhsol PRN Reason: Shortness Of Breath/Wheezing Bisacodyl [Dulcolax] 10 mg RC DAILY PRN supp.rect PRN Reason: Constipation Sennosides/Docusate Sodium [Senna Plus] 1 each PO DAILY tablet Continued Clopidogrel [Plavix] 75 mg PO DAILY carBAMazepine [Tegretol] 200 mg PO TID Finasteride [Proscar] 5 mg PO DAILY Nitroglycerin [Nitrostat] 0.4 mg SL Q5MIN PRN PRN Reason: Chest Pain Fluticasone Propionate Nasal [Flonase] 100 mcg NS DAILY PRN PRN Reason: Allergy Symptoms Omeprazole [PriLOSEC] 40 mg PO DAILY Calcitriol [Rocaltrol] 0.25 mcg PO DAILY Calcium Acetate [Phos-LO] 1,334 mg PO TIDWM Ergocalciferol (VITAMIN D2) [Vitamin D2] 50,000 units PO WE Insulin Degludec [Tresiba Flextouch U-200] 80 units SQ HS Isosorbide MONOnitrate (24 HR) [Imdur] 30 mg PO DAILY Midodrine HCl 10 mg PO FIGUEROA Rivastigmine Patch [Exelon] 9.5 mg TP DAILY Aspirin Enteric Coated [Aspirin EC] 81 mg PO DAILY #60 tablet. Pregabalin [Lyrica] 100 mg PO BID 30 Days #60 capsule Carbidopa/Levodopa [Carbidopa-Levodopa 25-100 Tab] 1 each PO BID Atorvastatin Calcium [Lipitor] 80 mg PO HS Insulin LISPRO [HumaLOG] 0 units SQ TIDWM Home Medications: Clopidogrel [Plavix] 75 mg PO DAILY 01/02/17 [History] Finasteride [Proscar] 5 mg PO DAILY 01/02/17 [History] Fluticasone Propionate Nasal [Flonase] 100 mcg NS DAILY PRN 01/02/17 [History] Nitroglycerin [Nitrostat] 0.4 mg SL Q5MIN PRN 01/02/17 [History] carBAMazepine [Tegretol] 200 mg PO TID 01/02/17 [History] Omeprazole [PriLOSEC] 40 mg PO DAILY 01/21/17 [History] Calcitriol [Rocaltrol] 0.25 mcg PO DAILY 10/04/18 [History] Calcium Acetate [Phos-LO] 1,334 mg PO TIDWM 10/04/18 [History] Ergocalciferol (VITAMIN D2) [Vitamin D2] 50,000 units PO WE 10/04/18 [History] Insulin Degludec [Tresiba Flextouch U-200] 80 units SQ HS 10/04/18 [History] Isosorbide MONOnitrate (24 HR) [Imdur] 30 mg PO DAILY 10/04/18 [History] Midodrine HCl 10 mg PO FIGUEROA 10/04/18 [History] Rivastigmine Patch [Exelon] 9.5 mg TP DAILY 10/04/18 [History] Aspirin Enteric Coated [Aspirin EC] 81 mg PO DAILY #60 tablet. 10/12/18 [Rx] Pregabalin [Lyrica] 100 mg PO BID 30 Days #60 capsule 10/13/18 [Rx] Atorvastatin Calcium [Lipitor] 80 mg PO HS 10/20/18 [History] Carbidopa/Levodopa [Carbidopa-Levodopa 25-100 Tab] 1 each PO BID 10/20/18 [History] Insulin LISPRO [HumaLOG] 0 units SQ TIDWM 10/20/18 [History] Amoxicillin/Clavulanate [Augmentin] 500 mg PO Q24H tablet 10/24/18 [Rx] Bisacodyl [Dulcolax] 10 mg RC DAILY PRN supp.rect 10/24/18 [Rx] Doxycycline 100 mg PO BID capsule 10/24/18 [Rx] Ipratropium/Albuterol Neb [Duoneb] 3 ml IH [id number] PRN inhsol 10/24/18 [Rx] Sennosides/Docusate Sodium [Senna Plus] 1 each PO DAILY tablet 10/24/18 [Rx] Allergies/Adverse Reactions: Allergy/AdvReac Type Severity Reaction Status Date / Time No Known Allergies Allergy Verified 10/04/18 19:00 Date of admission: 10/23/18 13:21 Primary care physician: Raoul Gaona Consults: 10/21/18 05:41 Consult to Heavy Equipment Plumbing Supervisor [CONS] Routine Reason for SW Consult: from [facility] 10/21/18 06:36 Consult to Occupational Therapy [CONS] Routine Comment: Evaluate, develop and implement POC Reason for Consult: Left sided weakness, history of right sided stroke Does patient have active BEDREST order?: No Is patient medically & hemodynamically stable?: Yes Patient assessed for mobility or mobilized this visit?: No Consult to Physical Therapy [CONS] Routine Comment: Evaluate, develop and implement POC Reason for Consult: Left sided weakness, history of right sided stroke Does patient have active BEDREST order?: No Is patient medically & hemodynamically stable?: Yes Patient assessed for mobility or mobilized this visit?: No 10/21/18 06:37 Consult to Speech Therapy [CONS] Routine Comment: Evaluate, develop and implement POC Reason for Consult: CVA, dysphagia, new left sided weakness Call Completed: No 10/21/18 07:15 Consult to Nephrology [CONS] Routine Consulting Provider: [facility]/SARATH/NILS/BROOKS Reason for Consult: ESRD patient Call Completed: No 10/21/18 07:17 Consult to Neurology [CONS] Routine Consulting Provider: [facility] Reason for Consult: Patient returns with new symptoms of stroke, new left sided weakness and dysphagia Call Completed: No 10/21/18 10:04 Consult to Invasive Line Access Team [CONS] Routine Reason for Consult: limited vascular access with femoral line. Upper peripheral venous access obtained to facilitate removal of femoral line. Line Type: EPIV 10/22/18 08:15 Consult to Dialysis [CONS] ONCE 10/24/18 07:45 Consult to Dialysis [CONS] ONCE Discharging clinician: Clau Mujica Anticipated date of discharge: 10/24/18 - Constitutional Vitals: Temp Pulse Resp BP Pulse Ox 97.5 F L 78 16 138/43 92 10/24/18 12:33 10/24/18 07:45 10/24/18 12:33 10/24/18 12:33 10/24/18 07:45 General appearance: Present: cooperative, A&O X 3, pleasant, no acute distress, answers questions appropriately Exam: This is a pleasant 73-year-old male who is accompanied by his and extended family at bedside. He is currently in no acute distress, and is hemodynamically stable. - Head Head exam: Present: atraumatic, normal inspection, normocephalic - Eye Eye exam: Present: EOMI - ENT ENT exam: Present: mucous membranes moist - Neck Neck exam general surgery: Present: full ROM, supple - Respiratory Respiratory exam: Present: CTAB. Absent: respiratory distress - Cardiovascular Cardiovascular exam: Present: RRR, +S1, +S2 - GI/Abdominal GI/Abdominal exam: Present: normal bowel sounds, soft - Neurological Exam Neurological exam: Present: alert, oriented X3, pronater drift (Right upper extremity), facial droop (Slight right-sided facial droop) - Psychiatric Psychiatric exam: Present: normal affect, normal mood - Skin Skin exam: Present: normal color. Absent: rash - Patient Status Disposition: Transfer SNF Condition: Fair Overall status at discharge: patient is progressing back to baseline - Discharge Instructions Instructions: Methicillin Resistant Staphylococcus Aureus (DC), Aspiration Pneumonia (DC), Ischemic Stroke (DC) Follow Up With: Alie Lawrence MD [Partnered Physician] - Raoul Gaona DO [Primary Care Provider] - (Please follow-up within 1 week) - Diet and Activity Activity: as per physical therapy, increase activity as tolerated Diet: diabetic diet, low fat, low cholesterol, low salt diet <[facility] - Last Filed: 10/25/18 17:23> Orders not resulted at time of discharge: Pending orders 10/20/18 20:00 Culture,Blood [BC] Stat 10/20/18 23:16 Culture,Blood [BC] Stat 10/21/18 11:15 Sputum Culture [Culture,Sputum with Gram Stain] [RM] Routine 10/25/18 04:00 BMP [Basic Metabolic Panel] AM 0400 Complete Blood Count w/o Diff [HEME] AM 0400 10/26/18 04:00 BMP [Basic Metabolic Panel] AM 0400 Complete Blood Count w/o Diff [HEME] AM [address]010/27/18 04:00 BMP [Basic Metabolic Panel] AM 0400 Complete Blood Count w/o Diff [HEME] AM 0400 10/28/18 04:00 BMP [Basic Metabolic Panel] AM 0400 Complete Blood Count w/o Diff [HEME] AM 0400 10/29/18 04:00 BMP [Basic Metabolic Panel] AM 0400 Complete Blood Count w/o Diff [HEME] AM 0400 10/30/18 04:00 BMP [Basic Metabolic Panel] AM 0400 Complete Blood Count w/o Diff [HEME] AM 0400 Date of Encounter: 10/25/18 - Discharge Diagnosis (1) Diabetes mellitus Status: Chronic Qualifiers: Diabetes mellitus type: type 2 Diabetes mellitus custodial insulin use: with intermediate project manager use Diabetes mellitus complication status: with kidney complications Diabetes mellitus complication detail: with chronic kidney disease Chronic kidney disease stage: unspecified stage Qualified Code(s): E11.22 - Type 2 diabetes mellitus with diabetic chronic kidney disease; Z79.4 - watermelon inspector (current) use of insulin (2) DVT prophylaxis Status: Acute (3) CVA (cerebral vascular accident) Status: Suspected Qualifiers: CVA mechanism: unspecified Qualified Code(s): I63.9 - Cerebral infarction, unspecified (4) ESRD on dialysis Status: Chronic (5) Multifocal pneumonia Status: Acute (6) Stroke-like symptom Status: Acute (7) Altered mental status Status: Acute Qualifiers: Altered mental status type: unspecified Qualified Code(s): R41.82 - Altered mental status, unspecified Hospital course: Mr. Anguiano is a 73 year old male - Time Spent with Patient Total time spent providing and/or coordinating discharge services: 38min Date of admission: 10/23/18 13:21 Primary care physician: Raoul Gaona Consults: 10/21/18 05:41 Consult to Heavy Equipment Plumbing Supervisor [CONS] Routine Reason for SW Consult: from [facility] 10/21/18 06:36 Consult to Occupational Therapy [CONS] Routine Comment: Evaluate, develop and implement POC Reason for Consult: Left sided weakness, history of right sided stroke Does patient have active BEDREST order?: No Is patient medically & hemodynamically stable?: Yes Patient assessed for mobility or mobilized this visit?: No Consult to Physical Therapy [CONS] Routine Comment: Evaluate, develop and implement POC Reason for Consult: Left sided weakness, history of right sided stroke Does patient have active BEDREST order?: No Is patient medically & hemodynamically stable?: Yes Patient assessed for mobility or mobilized this visit?: No 10/21/18 06:37 Consult to Speech Therapy [CONS] Routine Comment: Evaluate, develop and implement POC Reason for Consult: CVA, dysphagia, new left sided weakness Call Completed: No 10/21/18 07:15 Consult to Nephrology [CONS] Routine Consulting Provider: Kidney [facility]/SARATH/NILS/BROOKS Reason for Consult: ESRD patient Call Completed: No 10/21/18 07:17 Consult to Neurology [CONS] Routine Consulting Provider: [facility] Reason for Consult: Patient returns with new symptoms of stroke, new left sided weakness and dysphagia Call Completed: No 10/21/18 10:04 Consult to Invasive Line Access Team [CONS] Routine Reason for Consult: limited vascular access with femoral line. Upper peripheral venous access obtained to facilitate removal of femoral line. Line Type: EPIV 10/22/18 08:15 Consult to Dialysis [CONS] ONCE 10/24/18 07:45 Consult to Dialysis [CONS] ONCE - Constitutional Vitals: Temp Pulse Resp BP Pulse Ox 97.5 F L 78 16 138/43 92 10/24/18 12:33 10/24/18 07:45 10/24/18 12:33 10/24/18 12:33 10/24/18 07:45 - Attending Attestation I examined this patient and my medical decision-making was reviewed with the Resident Physician on 10/24/18. I agree with the documented findings, disposition and treatment plan as described except to the extent set forth below. Mr Anguiano has been admitted with new acute CVA. He was continued on dialysis and his usual meds including ASA and Plavix. There was discussion about ant icoagulation and the family is going to continue to discuss and decided. Initially he was to go to SNF and then family planned to take him home. Now the plan again is to go to SNF. Exam as above. Heart not tachy. Afebrile. Not taking ALINE due to renal disease or beta jayde presumably due to heart rate. D/C to SNF. D/C time 38min Pt discharged on 10/25/18.
--- NOTE | 2018-10-24 14:41 | Physician Discharge Referral ---
ExtendedCare Referral Info Transfer To: intermediate facility Provider in Charge after Transfer: PCP Institutional Level of Care: Skilled - Diagnosis (1) Acute CVA (cerebrovascular accident) Priority: Primary Status: Acute (2) Acute encephalopathy Priority: Secondary Status: Resolved (3) Anemia Priority: Secondary Status: Chronic (4) Diabetes mellitus Priority: Secondary Status: Chronic (5) Multifocal pneumonia Priority: Secondary Status: Acute (6) Sepsis Priority: Secondary Status: Resolved (7) Stroke-like symptom Priority: Secondary Status: Acute Prognosis: Fair Aware of Diagnosis: Patient, Family Aware of Prognosis: Patient, Family - Transfer Medications Home Medications: Clopidogrel [Plavix] 75 mg PO DAILY 01/02/17 [History] Finasteride [Proscar] 5 mg PO DAILY 01/02/17 [History] Fluticasone Propionate Nasal [Flonase] 100 mcg NS DAILY PRN 01/02/17 [History] Nitroglycerin [Nitrostat] 0.4 mg SL Q5MIN PRN 01/02/17 [History] carBAMazepine [Tegretol] 200 mg PO TID 01/02/17 [History] Omeprazole [PriLOSEC] 40 mg PO DAILY 01/21/17 [History] Calcitriol [Rocaltrol] 0.25 mcg PO DAILY 10/04/18 [History] Calcium Acetate [Phos-LO] 1,334 mg PO TIDWM 10/04/18 [History] Ergocalciferol (VITAMIN D2) [Vitamin D2] 50,000 units PO WE 10/04/18 [History] Insulin Degludec [Tresiba Flextouch U-200] 80 units SQ HS 10/04/18 [History] Isosorbide MONOnitrate (24 HR) [Imdur] 30 mg PO DAILY 10/04/18 [History] Midodrine HCl 10 mg PO FIGUEROA 10/04/18 [History] Rivastigmine Patch [Exelon] 9.5 mg TP DAILY 10/04/18 [History] Aspirin Enteric Coated [Aspirin EC] 81 mg PO DAILY #60 tablet.dr 10/12/18 [Rx] Pregabalin [Lyrica] 100 mg PO BID 30 Days #60 capsule 10/13/18 [Rx] Atorvastatin Calcium [Lipitor] 80 mg PO HS 10/20/18 [History] Carbidopa/Levodopa [Carbidopa-Levodopa 25-100 Tab] 1 each PO BID 10/20/18 [History] Insulin LISPRO [HumaLOG] 0 units SQ TIDWM 10/20/18 [History] Amoxicillin/Clavulanate [Augmentin] 500 mg PO Q24H tablet 10/24/18 [Rx] Bisacodyl [Dulcolax] 10 mg RC DAILY PRN supp.rect 10/24/18 [Rx] Doxycycline 100 mg PO BID capsule 10/24/18 [Rx] Ipratropium/Albuterol Neb [Duoneb] 3 ml IH [id number] PRN inhsol 10/24/18 [Rx] Sennosides/Docusate Sodium [Senna Plus] 1 each PO DAILY tablet 10/24/18 [Rx] Allergies/Adverse Reactions: Allergy/AdvReac Type Severity Reaction Status Date / Time No Known Allergies Allergy Verified 10/04/18 19:00 - Respiratory Orders Smoking Cessation: Smoking cessation has been advised. For more information, call the [place] Tobacco Quit Line at 9-033-VDND-NOW. - Advance Directives Code Status: Full Code - Mobility Orders Other (As per physical therapy) - Rehabiliation Orders Rehab Potential: Fair Rehab Orders: ROM Exercises, Evaluation for Physical Therapy, Evaluation for Occupational Therapy, Evaluation for Speech Therapy - Diet Orders No Concentrated Sweets (Renal, cardiac, diabetic diet), Renal, Cardiac CERTIFICATION: I certify that the transfer of the above named patient to an Extended Care Facility is necessary for the continuing treatment of the diagnosis listed. The above information is true and accurate reflection of patient's current condition. Confidential - Redisclosure prohibited without a patient's written consent.
--- NOTE | 2018-10-24 14:42 | Event Note ---
Date of Encounter: 10/24/18 Time of Encounter: 14:42 Met with family for extended discussion regarding resumption of anticoagulation. Per neurology, they recommend anticoagulation plus aspirin and discontinuation of Plavix. However given patient's history of GI bleeds and his fall risk, family was undecided regarding restarting anticoagulation. After lengthy discussion, patient opted to follow-up with his primary care physician regarding resumption of anticoagulation. Plans to follow-up with primary care physician within one week. Until then, will be discharged with aspirin and Plavix. Recommend close follow-up, and coming to consensus on decision for anticoagulation within the week.
--- NOTE | 2018-10-24 15:18 | Physician Discharge Referral ---
Home Health/Hosp Referral Info Transfer to: Home Health ([facility] Patient will go home with family and be seen by home health. Pt will then be seen by outpatient PT/OT after working with PT/OT via home health.) Provider in Charge Post Discharge: PCP - Diagnosis (1) Acute CVA (cerebrovascular accident) Priority: Primary Status: Acute (2) Acute encephalopathy Priority: Secondary Status: Resolved (3) Anemia Priority: Secondary Status: Chronic (4) Diabetes mellitus Priority: Secondary Status: Chronic (5) Multifocal pneumonia Priority: Secondary Status: Acute (6) Sepsis Priority: Secondary Status: Resolved (7) Stroke-like symptom Priority: Secondary Status: Acute - Respiratory Orders Smoking Cessation: Smoking cessation has been advised. For more information, call the [employer] Tobacco Quit Line at 3-287-SYOW-NOW. - Diet/Nutrition Diet/Nutrition Orders: Renal (Cardiac, Renal, Diabetic Diet), Cardiac, No Concentrated Sweets - Activity Activity Orders: Ambulate (Ambulate with assistance of PT/OT) - Services Needed Following services are medically necessary services: Nursing, Home Health Aide, Physical Therapy, Occupational Therapy, Speech Therapy - Transfer Medications Home Medications: Clopidogrel [Plavix] 75 mg PO DAILY 01/02/17 [History] Finasteride [Proscar] 5 mg PO DAILY 01/02/17 [History] Fluticasone Propionate Nasal [Flonase] 100 mcg NS DAILY PRN 01/02/17 [History] Nitroglycerin [Nitrostat] 0.4 mg SL Q5MIN PRN 01/02/17 [History] carBAMazepine [Tegretol] 200 mg PO TID 01/02/17 [History] Omeprazole [PriLOSEC] 40 mg PO DAILY 01/21/17 [History] Calcitriol [Rocaltrol] 0.25 mcg PO DAILY 10/04/18 [History] Calcium Acetate [Phos-LO] 1,334 mg PO TIDWM 10/04/18 [History] Ergocalciferol (VITAMIN D2) [Vitamin D2] 50,000 units PO WE 10/04/18 [History] Insulin Degludec [Tresiba Flextouch U-200] 80 units SQ HS 10/04/18 [History] Isosorbide MONOnitrate (24 HR) [Imdur] 30 mg PO DAILY 10/04/18 [History] Midodrine HCl 10 mg PO FIGUEROA 10/04/18 [History] Rivastigmine Patch [Exelon] 9.5 mg TP DAILY 10/04/18 [History] Aspirin Enteric Coated [Aspirin EC] 81 mg PO DAILY #60 tablet.dr 10/12/18 [Rx] Pregabalin [Lyrica] 100 mg PO BID 30 Days #60 capsule 10/13/18 [Rx] Atorvastatin Calcium [Lipitor] 80 mg PO HS 10/20/18 [History] Carbidopa/Levodopa [Carbidopa-Levodopa 25-100 Tab] 1 each PO BID 10/20/18 [History] Insulin LISPRO [HumaLOG] 0 units SQ TIDWM 10/20/18 [History] Amoxicillin/Clavulanate [Augmentin] 500 mg PO Q24H tablet 10/24/18 [Rx] Bisacodyl [Dulcolax] 10 mg RC DAILY PRN supp.rect 10/24/18 [Rx] Doxycycline 100 mg PO BID capsule 10/24/18 [Rx] Ipratropium/Albuterol Neb [Duoneb] 3 ml IH [id number] PRN inhsol 10/24/18 [Rx] Sennosides/Docusate Sodium [Senna Plus] 1 each PO DAILY tablet 10/24/18 [Rx] Allergies/Adverse Reactions: Allergy/AdvReac Type Severity Reaction Status Date / Time No Known Allergies Allergy Verified 10/04/18 19:00 Certification: Further, I certify that my clinical findings support that this patient is homebound (i.e. absences from home require considerable and taxing effort and are for medical reasons or [facility] services or infrequently or short duration when for other reasons) because: Homebound Reason: Patient requires assistance of a person or device to safely leave home, Leaving home requires considerable and taxing effort due to co ndition Attestation: My signature below is to certify that this patient is under my care and that I, or nurse practitioner, or a physician's triage assistant working with me, has a [id number] encounter with this patient.
[2018-10-24] MEDS: Amoxicillin/Clavulanate 500 MG TABLET PO SCH (16:50)
[2018-10-24] MEDS: Pregabalin 50 MG CAPSULE PO SCH (21:10)
--- NOTE | 2018-10-24 21:17 | Nephrology Progress Note ---
Date of Encounter: 10/24/18 Time of Encounter: 21:16 - Assessment and Plan (1) ESRD on dialysis Current Visit: Yes Status: Chronic HD TRS. Renal vitamins. Renal dose medications. Renal diet. Additional dialysis and ultrafiltration as needed. Patient was seen on dialysis. 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 No new complaint. ROS stable Objective - Vital Signs Vital signs: Vital Signs Temp Pulse Resp BP Pulse Ox 10/24/18 19:47 98.5 F 85 12 126/61 93 10/24/18 12:33 97.5 F L 16 138/43 10/24/18 12:25 117/94 10/24/18 12:10 107/43 10/24/18 11:55 107/57 10/24/18 11:40 112/64 10/24/18 11:25 100/67 10/24/18 11:10 133/44 10/24/18 10:55 133/44 10/24/18 10:40 109/51 10/24/18 10:25 96/48 10/24/18 10:10 107/44 10/24/18 09:55 105/58 10/24/18 09:40 109/41 10/24/18 09:25 104/44 10/24/18 09:10 108/60 10/24/18 08:55 99.1 F 18 183/87 10/24/18 07:45 97.9 F 78 17 140/67 92 10/24/18 03:59 98.2 F 78 14 157/74 92 10/24/18 00:08 93 10/23/18 23:53 98.3 F 79 18 161/69 93 10/23/18 21:41 97.4 F L 81 14 144/52 94 Intake and Output 06/20/19 06/20/19 06/20/19 07:59 15:59 23:59 Intake Total 100 / 600 500 / 600 Output Total 2500 / 2500 Balance 100 / -1900 -1999 / 190 Intake: IV Fluids 100 / 100 Zosyn 3.375 GM In 0.9 % Sodium 100 / 100 Chloride (Mini-Bag +) 100 ML @ 25 mls/hr IVPB Q12H DANETTE Rx#: [id number] Oral 0 / 0 Intake, Rinseback and Flushes 500 / 500 Output: Urine 0 / 0 Total Dialysis (HD) Output 2500 / 2500 Other: Meal Dinner Percent of Meal Consumed 20% Blood Glucose* 170 144 220 Hemodialysis Net Fluid Removed 2000 (mL) - General Appearance General appearance: Present: well-developed, well-nourished EENT: Present: ATNC Neck: Present: supple Cardiology: Present: regular rate Neurologic: Present: alert and oriented x3 Psychiatric: Present: mood/affect appropriate - Lab 10/24/18 04:25 10/24/18 04:25 Consult Discharge Plan - Plan Instructions: Methicillin Resistant Staphylococcus Aureus (DC), Aspiration Pneumonia (DC), Ischemic Stroke (DC) Referrals: Raoul Gaona DO [Primary Care Provider] - (Please follow-up within 1 week) Alie Lawrence MD [Partnered Physician] -
[2018-10-25 04:06] LABS: Hematocrit 25.4 % (37.5-50.1); Hemoglobin 8.2 g/dL (12.9-16.9); Mean Corpuscular HGB Conc 32.3 g/dL (31.6-35.5); Mean Corpuscular Hemoglobin 33.1 pg (28.0-33.3); Mean Corpuscular Volume 102.4 fL (83.0-100.0); Mean Platelet Volume 9.6 fL (9.4-12.4); Platelet Count 230 K/mcL (140-400); Red Blood Count 2.48 M/mcL (4.19-5.50); Red Cell Distribution Width 13.2 % (11.5-14.5); White Blood Count 5.2 K/mcL (4.3-11.1)
[2018-10-25 04:28] LABS: Calcium 8.7 mg/dL (8.6-10.3); Potassium 4.8 mEq/L (3.5-5.1)
[2018-10-25] MEDS: Calcium Acetate 667 MG CAPSULE PO SCH ×3 (08:33→16:40)
[2018-10-25] MEDS: Finasteride 5 MG TABLET PO SCH (08:34)
[2018-10-25] MEDS: Carbidopa/Levodopa 25/100 TABLET PO SCH (08:34)
[2018-10-25] MEDS: carBAMazepine 200 MG TABLET PO SCH ×2 (08:34→16:40)
[2018-10-25] MEDS: Sennosides/Docusate Sodium TABLET PO SCH (08:34)
[2018-10-25] MEDS: Doxycycline 100 MG CAPSULE PO SCH (08:34)
[2018-10-25] MEDS: Aspirin Enteric Coated 81 MG Tablet PO SCH (08:34)
[2018-10-25] MEDS: Rivastigmine Patch 9.5 MG PATCH.TD24 TP SCH (08:35)
[2018-10-25] MEDS: Insulin LISPRO 300 UNITS/3 ML VIAL SQ SCH ×2 (08:36→12:52)
--- NOTE | 2018-10-25 08:45 | Internal Med Progress Note ---
Hospitalist Progress Note - Encounter Date of Encounter: 10/25/18 Time of Encounter: 08:44 - Subjective Interval History: Patient was seen and examined at bedside this morning. He is in no acute distress at this time. He has no complaints at this time. Patient is resting comfortably eating breakfast. Vitals hemodynamically stable. Oxygen saturation appropriate on 2.5 L nasal cannula. Lab work was otherwise benign. Patient is awaiting placement to [facility] facility today. He is stable for discharge. There had been in discussion yesterday regarding sending patient home with home health versus sending him to [facility] facility. After [id number] between family and social work, patient and family eventually decided that fci facility would be appropriate. Eventually, patient will transition back to the [place]. There was also discussion yesterday regarding patient's anticoagulation. After lengthy discussion between myself and patient and his family, decision was made to hold off on any further anticoagulation at this time, and follow-up with primary care physician next week. Patient otherwise denies any headaches, chest pain, shortness of breath, abdominal pain, nausea, vomiting, diarrhea. He notes that he did have a small bowel movement yesterday, but has not had a complete bowel movement in a few days. Please see discharge summary from 10/24/18 at time of discharge. Patient was seen this morning as he was discharged yesterday and is awaiting placement at [facility] facility. - Exam Vitals: Temp Pulse Resp BP Pulse Ox 98.1 F 72 20 151/74 97 10/25/18 07:59 10/25/18 07:59 10/25/18 07:59 10/25/18 07:59 10/25/18 07:59 Exam: GEN: Pleasant 73-year-old male who is resting comfortably in bed. Vitals stable. No acute distress. AAOx3 HEENT: Atraumatic, Normocephalic, PERRLA, EOMI, mucous membranes moist NECK: Supple, no lymphadenopathy, no JVD, full range of motion CARDIAC: RRR, s1 and s2 present, no murmurs, rubs, gallops PULM: CTAB, not in respiratory distress, no wheezes, rales, crackles, rhonchi ABD: Soft, non-tender, non-distended, no guarding or rebound tenderness. Bowel sounds present EXT: No peripheral edema. No calf tenderness, cyanosis, clubbing NEURO: CN 2-12 grossly intact. No focal neurologic deficits. Follows commands PSYCH: Appropriate mood and affect - Assessment and Plan (1) Acute CVA (cerebrovascular accident) Current Visit: Yes Status: Acute Assessment and Plan: This is a 73-year-old male with past medical history significant for previous CVA, diabetes, glaucoma, hyperlipidemia, hypertension, ESRD initially presented to the emergency room from alf due to altered mental status. - History of right-sided CVA- admitted and discharged from hospital about a week and a half ago. - Presented to ED with altered mental status and left-sided weakness. Associated with cough and congestion. - Initial head CT negative for acute intracranial abnormality - CT angiogram of head and neck showed no hemodynamically significant stenosis, occlusion, aneurysm - Stroke alert called in the ED. [facility] neurology was consulted and suspected patient's presentation was likely secondary to sepsis and not related to stroke. - Patient was thus managed for sepsis with fluids, antibiotics, and admitted to the hospital. - MRI of brain was done, and initially read negative for stroke, but then re- read to say there was a possibility of acute or subacute infarction with left temporal lobe. At that time, patient was artery outside of window for TPA/intervention. - Neurology saw and evaluated patient. Recommended statin, aspirin, anticoagulation. Given patient's history of GI bleed, and risk for falls, family opted against anticoagulation PLAN: - Patient is currently stable for discharge. Likely that he has had a acute/subacute left temporal lobe stroke. - Discussion with family yesterday, and they have opted against anticoagulation at this time. Will follow up outpatient with PCP. - Continue with aspirin, Plavix, statin, EPCDs - Monitor for worsening of symptoms - Physical therapy/occupational therapy recommendations appreciated - Pending placement at [facility] facility. Social work assistance and recommendations appreciated (2) Multifocal pneumonia Current Visit: Yes Status: Acute Assessment and Plan: Patient met sepsis criteria on admission. Temp = 101.3, HR = 101 - Chest x-ray did show bilateral opacities - Chest CT angiogram did show dense collections in the bilateral lower lobes, left greater than right - However since admission, no signs of leukocytosis or fevers - Blood cultures with no growth to date - Patient did have positive nasal MRSA swab PLAN: - Patient currently being treated with Augmentin and doxycycline by mouth. Plan to continue for a total of 10 days of antibiotics. - Status post treatment with IV vancomycin and IV Zosyn - Monitor for fevers or worsening leukocytosis - Monitor for worsening respiratory distress - Supplemental oxygen as needed (3) Acute encephalopathy Current Visit: Yes Status: Resolved Assessment and Plan: Resolved. - Initial etiology was unclear. Patient had signs of sepsis due to multifocal pneumonia versus acute CVA versus metabolic - [facility] stroke team was consulted and felt that patient's condition was likely secondary to sepsis - However MRI of the brain did not show acute or subacute left temporal lobe stroke PLAN: - See plan as above (4) Anemia Current Visit: Yes Status: Chronic Assessment and Plan: Stable - Hb = 9.9 on admission. - Baseline hemoglobin = 9-10 - Macrocytic normochromic PLAN: - No signs of acute bleed - Likely anemia of chronic disease, with component of ESRD causing anemia - Monitor hemoglobin and hematocrit (5) Diabetes mellitus Current Visit: Yes Status: Chronic Assessment and Plan: Hemoglobin A1c = 11% - History of diabetes, on home insulin PLAN: - Monitor blood sugars - Low-dose sliding scale - Accu-Cheks before meals at bedtime - Diabetic diet - Hypoglycemia protocol (6) Sepsis Current Visit: Yes Status: Resolved Assessment and Plan: Resolved - Met sepsis criteria on admission (7) ESRD on dialysis Current Visit: Yes Status: Chronic Assessment and Plan: ESRD on hemodialysis PLAN: - Continue Sunday//Sunday hemodialysis schedule (8) DVT prophylaxis Current Visit: No Status: Acute Assessment and Plan: PLAN: - SCDs DVT Prophylaxis: SCDs - Time Spent with Patient Total time spent is greater than 50% in coordination of care (as documented) at patient's floor/unit and/or counseling patient: Internal Medicine: Result - Labs CBC & Chem 7: 10/25/18 03:45 10/25/18 03:45 Labs: Short CBC 10/25/18 Range/Units 03:45 WBC 5.2 (4.3-11.1) K/mcL Hgb 8.2 L (12.9-16.9) g/dL Hct 25.4 L (37.5-50.1) % Plt Count 230 (140-400) K/mcL BMP 10/25/18 03:45 Sodium 139 Potassium 4.8 Chloride 98 Carbon Dioxide 30 H BUN 40 H Creatinine 4.78 H Glucose 241 H Calcium 8.7 - ABG Interpretation ABG results: PT/INR, D-dimer PT 12.7 Seconds (9.4-12.1) H 10/23/18 04:00 - VTE Documentation of Mechanical Device: Intermittent pneumatic compression device Consult Discharge Plan - Plan Instructions: Methicillin Resistant Staphylococcus Aureus (DC), Aspiration Pneumonia (DC), Ischemic Stroke (DC) Referrals: Raoul Gaona DO [Primary Care Provider] - (Please follow-up within 1 week) Alie Lawrence MD [Partnered Physician] - (4) Anemia Qualifiers: Anemia type: unspecified type Qualified Code(s): D64.9 - Anemia, unspecified (5) Diabetes mellitus Qualifiers: Diabetes mellitus type: type 2 Diabetes mellitus custodial insulin use: with custodial use Diabetes mellitus complication status: with kidney complications Diabetes mellitus complication detail: with chronic kidney disease Chronic kidney disease stage: unspecified stage Qualified Code(s): E11.22 - Type 2 diabetes mellitus with diabetic chronic kidney disease; 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
[2018-10-25] MEDS ORDERED: Isosorbide MONOnitrate (24 HR) 30 MG TAB.ER.24H PO SCH (09:00)
--- NOTE | 2018-10-25 10:28 | Physician Discharge Referral ---
ExtendedCare Referral Info Transfer To: [facility] facility: [facility] Provider in Charge after Transfer: PCP Institutional Level of Care: Skilled (Patient initially wanted to go home with home health care. After discussion with patient and family and social work, decision was made to have patient go to residential facility. Please disregard any previous referrals) - Diagnosis (1) Acute CVA (cerebrovascular accident) Priority: Primary Status: Acute (2) Stroke-like symptom Priority: Secondary Status: Acute (3) Acute encephalopathy Priority: Secondary Status: Resolved (4) Multifocal pneumonia Priority: Secondary Status: Acute (5) Anemia Priority: Secondary Status: Chronic (6) Diabetes mellitus Priority: Secondary Status: Chronic (7) Sepsis Priority: Secondary Status: Resolved (8) DVT prophylaxis Priority: Secondary Status: Acute Prognosis: Fair Aware of Diagnosis: Patient, Family Aware of Prognosis: Patient, Family - Transfer Medications Home Medications: Clopidogrel [Plavix] 75 mg PO DAILY 01/02/17 [History] Finasteride [Proscar] 5 mg PO DAILY 01/02/17 [History] Fluticasone Propionate Nasal [Flonase] 100 mcg NS DAILY PRN 01/02/17 [History] Nitroglycerin [Nitrostat] 0.4 mg SL Q5MIN PRN 01/02/17 [History] carBAMazepine [Tegretol] 200 mg PO TID 01/02/17 [History] Omeprazole [PriLOSEC] 40 mg PO DAILY 01/21/17 [History] Calcitriol [Rocaltrol] 0.25 mcg PO DAILY 10/04/18 [History] Calcium Acetate [Phos-LO] 1,334 mg PO TIDWM 10/04/18 [History] Ergocalciferol (VITAMIN D2) [Vitamin D2] 50,000 units PO WE 10/04/18 [History] Insulin Degludec [Tresiba Flextouch U-200] 80 units SQ HS 10/04/18 [History] Isosorbide MONOnitrate (24 HR) [Imdur] 30 mg PO DAILY 10/04/18 [History] Midodrine HCl 10 mg PO FIGUEROA 10/04/18 [History] Rivastigmine Patch [Exelon] 9.5 mg TP DAILY 10/04/18 [History] Aspirin Enteric Coated [Aspirin EC] 81 mg PO DAILY #60 tablet. 10/12/18 [Rx] Pregabalin [Lyrica] 100 mg PO BID 30 Days #60 capsule 10/13/18 [Rx] Atorvastatin Calcium [Lipitor] 80 mg PO HS 10/20/18 [History] Carbidopa/Levodopa [Carbidopa-Levodopa 25-100 Tab] 1 each PO BID 10/20/18 [History] Insulin LISPRO [HumaLOG] 0 units SQ TIDWM 10/20/18 [History] Amoxicillin/Clavulanate [Augmentin] 500 mg PO Q24H tablet 10/24/18 [Rx] Bisacodyl [Dulcolax] 10 mg RC DAILY PRN supp.rect 10/24/18 [Rx] Doxycycline 100 mg PO BID capsule 10/24/18 [Rx] Ipratropium/Albuterol Neb [Duoneb] 3 ml IH [id number] PRN inhsol 10/24/18 [Rx] Sennosides/Docusate Sodium [Senna Plus] 1 each PO DAILY tablet 10/24/18 [Rx] Allergies/Adverse Reactions: Allergy/AdvReac Type Severity Reaction Status Date / Time No Known Allergies Allergy Verified 10/04/18 19:00 - Respiratory Orders Oxygen / L per min (Patient may need to to 3 L at night. Otherwise does not need oxygen during the day.) Smoking Cessation: Smoking cessation has been advised. For more information, call the [place] Tobacco Quit Line at 1-833-GEHK-NOW. - Advance Directives Code Status: Full Code - Mobility Orders Ambulate (Ambulate as per physical therapy) - Rehabiliation Orders Rehab Orders: ROM Exercises, Evaluation for Physical Therapy, Evaluation for Occupational Therapy, Evaluation for Speech Therapy - Diet Orders Cardiac (Cardiac diet with honey thickened liquids.) CERTIFICATION: I certify that the transfer of the above named patient to an Extended Care Facility is necessary for the continuing treatment of the diagnosis listed. The above information is true and accurate reflection of patient's current condition. Confidential - Redisclosure prohibited without a patient's written consent.
[2018-10-25 11:27] VITALS: BP 155/80
[2018-10-25] MEDS: Amoxicillin/Clavulanate 500 MG TABLET PO SCH (16:40)
== END 2018-10-25 18:40 | DRG 871 ==
LOC: 2NENU 19:51 → EMEROOARM 19:51 → SUATTDRO 10-21 02:18 → 2NENU 10-21 03:00
PROVIDERS: ADMIT Internal Medicine; ATTEND Internal Medicine

== ENCOUNTER 2018-11-04 16:18 | Observation (INO) ==
[2018-11-04 16:52] LABS: Hematocrit 30.8 % (37.5-50.1); Hemoglobin 9.6 g/dL (12.9-16.9); Mean Corpuscular HGB Conc 31.2 g/dL (31.6-35.5); Mean Corpuscular Hemoglobin 32.3 pg (28.0-33.3); Mean Corpuscular Volume 103.7 fL (83.0-100.0); Mean Platelet Volume 9.6 fL (9.4-12.4); Platelet Count 421 K/mcL (140-400); Red Blood Count 2.97 M/mcL (4.19-5.50); Red Cell Distribution Width 13.7 % (11.5-14.5); White Blood Count 7.5 K/mcL (4.3-11.1)
[2018-11-04 17:09] LABS: Activated Partial Thrombo Time 27.8 Seconds (26.0-36.0)
[2018-11-04 17:34] LABS: BUN/Creatinine Ratio 9 (6-26); Blood Urea Nitrogen 56 mg/dL (8-23); Calcium 8.3 mg/dL (8.6-10.3); Carbon Dioxide 27 mEq/L (23-29); Chloride 98 mEq/L (98-107); Glucose 163 mg/dL (70-105); Osmolality,Calculated 307 (280-300); Potassium 4.2 mEq/L (3.5-5.1); Sodium 139 mEq/L (136-145); Troponin I < 0.03 ng/mL (< 0.04); eGFR For African Americans 11 (> 60); eGFR For Non-African Americans 9 (> 60)
[2018-11-04] MEDS ORDERED: Calcium Gluconate 2,000 MG in 0.9 % Sodium Chloride 100 ML IVPB ONE (18:04)
[2018-11-04] MEDS ORDERED: Aspirin 81 MG TAB.CHEW PO ONE (19:41)
[2018-11-04] MEDS ORDERED: Naloxone 0.4 MG/ML INJ IVP PRN (22:35)
[2018-11-04] MEDS ORDERED: Dextrose Gel 15 GM/37.5 ML TUBE PO PRN ×2 (22:35)
[2018-11-04] MEDS ORDERED: Ondansetron 4 MG/2 ML VIAL IVP PRN (22:35)
[2018-11-04] MEDS ORDERED: D5% in Water 1,000 ML IVC PRN (22:35)
[2018-11-04] MEDS ORDERED: *HR* Dextrose 50 % in Water (Syg) 50 ML SYRINGE IVP PRN (22:35)
[2018-11-04] MEDS ORDERED: Bisacodyl 10 MG RECTAL SUPPOSITORY RC PRN (22:42)
[2018-11-04] MEDS ORDERED: Nitroglycerin 0.4 MG TAB.SUBL SL PRN (22:42)
[2018-11-04] MEDS ORDERED: Fluticasone Propionate Nasal 50 MCG/SPRAY BOTTLE NS PRN (22:42)
[2018-11-04] MEDS ORDERED: Ipratropium/Albuterol Neb 3 ML IH PRN (22:42)
[2018-11-04] MEDS ORDERED: Ergocalciferol (VIT D2) 50,000 UNIT (1.25MG) CAP PO SCH (22:45)
[2018-11-04 23:23] LABS: Estimated Average Glucose 232 mg/dl
[2018-11-05] MEDS: *HR* Heparin 5,000 UNIT/ML VIAL SQ SCH ×2 (06:23→18:05)
[2018-11-05 06:52] LABS: Basophils # 0.1 K/mcL (0.0-0.2); Basophils % 0.9 %; Eosinophils # 0.3 K/mcL (0.0-0.6); Eosinophils % 4.6 %; Immature Granulocytes % 0.7 % (0-4); Lymphocytes # 1.8 K/mcL (0.6-4.6); Lymphocytes % 30.6 %; Mean Corpuscular HGB Conc 31.3 g/dL (31.6-35.5); Mean Corpuscular Hemoglobin 32.4 pg (28.0-33.3); Mean Corpuscular Volume 103.6 fL (83.0-100.0); Mean Platelet Volume 9.5 fL (9.4-12.4); Monocytes # 0.6 K/mcL (0.0-1.3); Monocytes % 10.3 %; Neutrophils # 3.1 K/mcL (1.6-8.9); Platelet Count 431 K/mcL (140-400); Red Blood Count 3.09 M/mcL (4.19-5.50); Red Cell Distribution Width 13.7 % (11.5-14.5); Segmented Neutrophils % 52.9 %; White Blood Count 5.8 K/mcL (4.3-11.1)
[2018-11-05] MEDS: Insulin LISPRO 300 UNITS/3 ML VIAL SQ SCH ×3 (07:04→15:21)
[2018-11-05 07:10] LABS: Albumin 3.3 g/dL (3.5-5.7); Albumin/Globulin Ratio 1.1 (1.1-2.2); Bilirubin,Total 0.3 mg/dL (0.3-1.0); Calcium 8.9 mg/dL (8.6-10.3); Globulin 2.9 g/dL (2.4-3.5); Magnesium 3.1 mg/dL (1.6-2.6); Potassium 4.3 mEq/L (3.5-5.1); Total Protein 6.2 g/dL (6.4-8.9)
[2018-11-05] MEDS ORDERED: 0.9 % Sodium Chloride 250 ML IVC PRN (07:49)
[2018-11-05] MEDS ORDERED: 0.9 % Sodium Chloride 1,000 ML PRIME SCH (08:00)
[2018-11-05 09:13] LABS: Hepatitis B Surface Antibody < 3.10 mIU/mL
[2018-11-05 09:25] LABS: Hepatitis B Surface Antigen Nonreactive (Nonreactive)
[2018-11-05] MEDS: carBAMazepine 200 MG TABLET PO SCH ×3 (12:22→21:03)
[2018-11-05] MEDS: Finasteride 5 MG TABLET PO SCH (14:04)
[2018-11-05] MEDS: Isosorbide MONOnitrate (24 HR) 30 MG TAB.ER.24H PO SCH (14:04)
[2018-11-05] MEDS: Lactobacillus 1 EACH CAP.SPRINK PO SCH (14:04)
[2018-11-05] MEDS: Sennosides/Docusate Sodium TABLET PO SCH (14:04)
[2018-11-05] MEDS: Aspirin Enteric Coated 81 MG Tablet PO SCH (14:04)
[2018-11-06] MEDS: *HR* Heparin 5,000 UNIT/ML VIAL SQ SCH (05:19)
[2018-11-06 06:21] LABS: Basophils # 0.1 K/mcL (0.0-0.2); Basophils % 0.9 %; Eosinophils # 0.3 K/mcL (0.0-0.6); Eosinophils % 5.9 %; Hematocrit 30.1 % (37.5-50.1); Hemoglobin 9.3 g/dL (12.9-16.9); Lymphocytes # 2.1 K/mcL (0.6-4.6); Lymphocytes % 36.7 %; Mean Corpuscular HGB Conc 30.9 g/dL (31.6-35.5); Mean Corpuscular Hemoglobin 31.6 pg (28.0-33.3); Mean Corpuscular Volume 102.4 fL (83.0-100.0); Mean Platelet Volume 9.5 fL (9.4-12.4); Monocytes # 0.7 K/mcL (0.0-1.3); Monocytes % 11.8 %; Neutrophils # 2.5 K/mcL (1.6-8.9); Platelet Count 391 K/mcL (140-400); Red Blood Count 2.94 M/mcL (4.19-5.50); Red Cell Distribution Width 13.8 % (11.5-14.5); Segmented Neutrophils % 43.7 %; White Blood Count 5.8 K/mcL (4.3-11.1)
[2018-11-06 06:44] LABS: Calcium 8.3 mg/dL (8.6-10.3); Potassium 4.4 mEq/L (3.5-5.1)
[2018-11-06] MEDS: Insulin LISPRO 300 UNITS/3 ML VIAL SQ SCH ×2 (07:27→12:28)
[2018-11-06] MEDS ORDERED: Metoprolol XL (24 HR) Succ 25 MG TAB.ER.24H PO SCH (09:00)
[2018-11-06] MEDS: Sennosides/Docusate Sodium TABLET PO SCH (09:24)
[2018-11-06] MEDS: carBAMazepine 200 MG TABLET PO SCH (09:25)
[2018-11-06] MEDS: Finasteride 5 MG TABLET PO SCH (09:25)
[2018-11-06] MEDS: Lactobacillus 1 EACH CAP.SPRINK PO SCH (09:25)
[2018-11-06] MEDS: Aspirin Enteric Coated 81 MG Tablet PO SCH (09:25)
[2018-11-06] MEDS: Isosorbide MONOnitrate (24 HR) 30 MG TAB.ER.24H PO SCH (09:33)
[2018-11-06 11:15] VITALS: BP 112/63
== END 2018-11-06 15:38 ==
LOC: 2ANU 16:18 → EMEROOARM 16:18 → SUATTDRO 20:03 → 2ANU 21:58
PROVIDERS: ADMIT Internal Medicine Nephrology; ATTEND Internal Medicine

== ENCOUNTER 2018-11-20 23:11 | Inpatient (IN) ==
[2018-11-20] MEDS ORDERED: 0.9 % Sodium Chloride 1,000 ML IVC ONE (23:22)
--- NOTE | 2018-11-20 23:36 | Emergency Department Note ---
Disposition Clinical Impression: Altered mental status Qualifiers: Altered mental status type: unspecified Qualified Code(s): R41.82 - Altered mental status, unspecified Disposition: Still a Patient Condition: Serious [facility] Care Provider[facility] - Time of Disposition: 01:00 Altered Mental Status HPI - General Time Seen by Provider: 11/20/18 23:13 Source: patient, EMS Mode of arrival: EMS Limitations: altered mental status Nursing Notes Reviewed: Yes Vital Signs Reviewed: Yes - History of Present Illness HPI Narrative: 73-year-old male past medical history of prior CVA, ESRD on dialysis Sunday, diabetes present for altered mental status unknown duration. [employer] crew that brought patient in states they last saw him on Sunday when the patient was at his baseline which is normally awake alert and oriented able to conversation appropriately. He will recall to the patient's senior care tonight for concerns of hypotension with blood pressure in the 106 systolic range. The patient upon presentation had a left lean with a possible left-sided facial droop. The patient was complaining of left-sided weakness over and above his normal left sided deficits after his previous stroke. Patient states that he was weak and felt confused. The paramedics states the patient was not making any sense while he was talking and that there was a comment made of concern for UTI. Upon presentation the patient is able to answer simple yes or no questioning but seems to contradict his own statements when asked if he is able to feel his upper extremities he first responds no and then when asked to clarify he states that yes he can. Patient is not a reliable historian at this time and appears altered, he is febrile likely uroseptic. MD complaint: altered mental status Onset (ago): unknown - Related Data Home Medications Medication Instructions Recorded Confirmed Finasteride [Proscar] 5 mg PO DAILY 01/02/17 11/21/18 Fluticasone Propionate Nasal 100 mcg NS DAILY PRN 01/02/17 11/21/18 [Flonase] Nitroglycerin [Nitrostat] 0.4 mg SL Q5MIN PRN 01/02/17 11/21/18 carBAMazepine [Tegretol] 200 mg PO TID 01/02/17 11/21/18 Ergocalciferol (VITAMIN D2) 50,000 units PO MO 10/04/18 11/21/18 [Vitamin D2] Atorvastatin Calcium [Lipitor] 80 mg PO HS 10/20/18 11/21/18 Insulin LISPRO [HumaLOG] 0 units SQ TIDWM 10/20/18 11/21/18 Cyclobenzaprine [Flexeril] 10 mg PO TID PRN 11/04/18 11/21/18 Lactobacillus Acidophilus 1 each PO BID 11/04/18 11/21/18 [Acidophilus] Ondansetron HCl [Zofran] 4 mg PO Q8HR PRN 11/04/18 11/21/18 Amino Acids/Protein Hydrolys 30 ml PO DAILY 11/12/18 11/21/18 [Pro-Stat Awc Liquid Packet] Calcium Acetate [Phos-LO] 1,334 mg PO TIDWM 11/12/18 11/21/18 Pregabalin [Lyrica] 100 mg PO BID 11/12/18 11/21/18 Carbidopa/Levodopa 25/100 [Sinemet 1 each PO TID 11/21/18 11/21/18 25/100] Ketoconazole 2% CRM [Nizoral Cream] 1 appl TP BID 11/21/18 11/21/18 Rivastigmine Patch [Exelon] 9.5 mg TD DAILY 11/21/18 11/21/18 Previous Rx's Medication Instructions Recorded Aspirin Enteric Coated [Aspirin EC] 81 mg PO DAILY #60 tablet. 10/12/18 Bisacodyl [Dulcolax] 10 mg RC DAILY PRN supp.rect 10/24/18 Ipratropium/Albuterol Neb [Duoneb] 3 ml IH [id number] PRN inhsol 10/24/18 Sennosides/Docusate Sodium [Senna 1 each PO DAILY tablet 10/24/18 Plus] Clopidogrel [Plavix] 75 mg PO DAILY #30 tablet 11/06/18 Lisinopril [Zestril] 2.5 mg PO DAILY #30 tablet 11/06/18 Metoprolol XL (24 HR) Succ [Toprol 12.5 mg PO DAILY #30 tab.er.24h 11/06/18 Xl] Amoxicillin/Clavulanate [Augmentin] 875 mg PO BIDWM 4 Days #8 tablet 11/14/18 Insulin Degludec [Tresiba 40 units SQ HS 30 Days #2 11/14/18 Flextouch U-200] insuln.pen Allergies Allergy/AdvReac Type Severity Reaction Status Date / Time No Known Allergies Allergy Verified 10/04/18 19:00 Review of Systems: The patient states that he currently has no chest pain, shortness of breath he has no nausea he has had no recent fevers or chills. Patient has no concerns or complaints at this time other than statement of feeling very weak as well as left-sided weakness over above his baseline. All systems ED: reviewed and negative except as stated. Review of Systems: As Per HPI Limitations: ROS unobtainable due to patients medical condition Past Medical History - Past Medical History Medical history: Reports: cancer, CVA, diabetes, dialysis, glaucoma, hyperlipidemia, hypertension, renal disease, other Surgical history: Reports: angioplasty/stent, cataract, coronary bypass (CABG), orthopedic, other Psychiatric history: Reports: depression - Social History Smoking Status: Never smoker Smokeless Tobacco Status: No Alcohol use: Reports: none Drug use: Reports: none Physical Exam Constitutional: Patient appears to be in acute distress due to likely infectious process, he is leaning to the left side, left-sided facial droop and likely slurred speech. Neuro: GCS 15 Head: Atraumatic, normocephalic Eyes: Pupils equal, round and reactive to light, no scleral icterus, no conjunctival injection Neck: Trachea midline without deviation. Anterior neck is supple without swelling. *Chest: Symmetric chest wall rise *Heart: Cardiac rhythm and rate are regular with S1 and S2 , no S3 or S4 appreciated, no murmurs, gallops, rubs, or clicks. *Lungs: Lungs are clear to auscultation bilaterally, without accessory muscle use or prolonged expiratory phase. No wheezes, rhonchi or stridor appreciated. Abdomen: Abdomen is flat, soft to palpation, normal bowel sounds. No abdominal bruit auscultated. Non-distended, non-rigid, no organomegaly, no ascites appreciated. No pulsatile mass, no tenderness or guarding to palpation in all four quadrants, no rebound Extremities: Normal capillary refill without evidence of pedal edema, joint swe lling or erythema. Pulses/motor/sensory intact in all 4 extremities. Integumentary: Patient's skin appears pale, he is mildly diaphoretic. - General Limitations: altered mental status General appearance: lethargic Course Course Narrative: Patient duration of symptoms unknown for precise time, no stroke alert will be called at this time as patient is not a TPA candidate. ED sepsis workup initiated with CT scan of the head. We will start 1 L fluids at this time with cautious administration. Patient started on broad spectrum vancomycin and Zosyn for likely sepsis. Vital Signs Temperature 101.2 F H 11/20/18 23:16 Pulse Rate 92 11/20/18 23:16 Respiratory Rate 17 11/20/18 23:16 Blood Pressure 123/55 11/20/18 23:16 O2 Sat by Pulse Oximetry 96 11/20/18 23:16 Temperature 101.2 F H 11/20/18 23:16 Pulse Rate 87 11/21/18 00:38 Respiratory Rate 18 11/21/18 00:38 Blood Pressure 124/62 11/21/18 00:38 O2 Sat by Pulse Oximetry 97 11/21/18 00:38 Oxygen Delivery Oxygen Delivery Room Air Altered Mental Status - MDM Narrative Medical decision making narrative: Patient be signed out for the overnight staff of Dr. Lul Moffett at the end of my shift. Please see further documentation by these physicians for further evaluation, management final disposition. - Lab Data Lab Results 11/21/18 Range/Units 00:37 Urine Color Dark Yellow (Yellow) Urine Clarity Cloudy A (Clear) Urine pH 6.0 (5.0-8.0) pH Units Ur Specific [place] 1.021 (1.010-1.025) Urine Protein >=300 H (Neg-Trace) mg/dL Urine Glucose (UA) 250 H (Normal) mg/dL Urine Ketones Negative (Negative) mg/dL Urine Blood Moderate H (Negative) Urine Nitrite Negative (Negative) Urine Bilirubin Small H (Negative) Urine Urobilinogen Normal (Normal) mg/dL Ur Leukocyte Esterase Moderate H (Negative) TPA Checklist - LKW: 3-4.5 hrs Add. Warnings/Precautions Patient/family understanding: The patient/family members have been counseled and understood the risk, benefit, and alternatives of treatment.
[2018-11-21 00:50] LABS: Bilirubin,Urine Small (Negative); Blood,Urine Moderate (Negative); Clarity,Urine Cloudy (Clear); Color,Urine Dark Yellow (Yellow); Glucose,Urine (UA) 250 mg/dL (Normal); Ketones,Urine Negative (Negative); Leukocyte Esterase,Urine Moderate (Negative); Nitrite,Urine Negative (Negative); Protein,Urine >=300 mg/dL (Neg-Trace); Specific Gravity,Urine 1.021 (1.010-1.025); Urobilinogen,Urine Normal (Normal)
[2018-11-21 00:55] LABS: Hyaline Casts,Urine None Seen per lpf (None-Few); RBC,Urine 30-50 per hpf (0-3); Squamous Epithelial Cell,Urine None Seen per lpf (None-Few); WBC,Urine TNTC per hpf (0-3)
[2018-11-21] MEDS ORDERED: WATER FOR INJ IVP STA (00:57)
[2018-11-21] MEDS ORDERED: PIPERACILLIN IVP STA (00:57)
[2018-11-21] MEDS ORDERED: TAZOBACTAM IVP STA (00:57)
[2018-11-21 01:07] LABS: Bacteria,Urine Few per hpf (None-Few); Yeast,Urine Many per hpf (None Seen)
[2018-11-21 01:39] LABS: Basophils % 0.2 %; Eosinophils # 0.1 K/mcL (0.0-0.6); Eosinophils % 1.2 %; Immature Granulocytes % 0.2 % (0-4); Lymphocytes # 1.1 K/mcL (0.6-4.6); Lymphocytes % 13.9 %; Mean Corpuscular Hemoglobin 32.3 pg (28.0-33.3); Mean Corpuscular Volume 103.9 fL (83.0-100.0); Monocytes # 0.5 K/mcL (0.0-1.3); Monocytes % 5.8 %; Neutrophils # 6.3 K/mcL (1.6-8.9); Platelet Count 310 K/mcL (140-400); Red Blood Count 2.79 M/mcL (4.19-5.50); Red Cell Distribution Width 13.5 % (11.5-14.5); Segmented Neutrophils % 78.7 %; White Blood Count 8.1 K/mcL (4.3-11.1)
[2018-11-21 01:39] LABS: VBG HCO3 26 mEq/L (21-27); VBG PCO2 46 mmHg (41-51); VBG PH 7.37 pH Units (7.32-7.42); VBG PO2 57 mmHg (25-50)
[2018-11-21 01:45] LABS: INR 1.1; Prothrombin Time 12.6 Seconds (9.4-12.1)
--- NOTE | 2018-11-21 01:53 | Emergency Department Note ---
Disposition Clinical Impression: Altered mental status Qualifiers: Altered mental status type: unspecified Qualified Code(s): R41.82 - Altered mental status, unspecified Sepsis Qualifiers: Sepsis type: sepsis due to unspecified organism Qualified Code(s): A41.9 - Sepsis, unspecified organism Anemia Qualifiers: Anemia type: unspecified type Qualified Code(s): D64.9 - Anemia, unspecified Disposition: Admitted As Inpatient Condition: Serious [facility]: [facility]Primary Care Provider[facility] - Time of Disposition: 03:06 General Adult HPI - General Chief complaint: ED Neuro Symptoms/Deficit Time Seen by Provider: 11/20/18 23:13 Source: patient, EMS Mode of arrival: EMS Limitations: altered mental status - History of Present Illness Pain Scale: 0 - Related Data Home Medications Medication Instructions Recorded Confirmed Finasteride [Proscar] 5 mg PO DAILY 01/02/17 11/21/18 Fluticasone Propionate Nasal 100 mcg NS DAILY PRN 01/02/17 11/21/18 [Flonase] Nitroglycerin [Nitrostat] 0.4 mg SL Q5MIN PRN 01/02/17 11/21/18 carBAMazepine [Tegretol] 200 mg PO TID 01/02/17 11/21/18 Ergocalciferol (VITAMIN D2) 50,000 units PO MO 10/04/18 11/21/18 [Vitamin D2] Atorvastatin Calcium [Lipitor] 80 mg PO HS 10/20/18 11/21/18 Insulin LISPRO [HumaLOG] 0 units SQ TIDWM 10/20/18 11/21/18 Cyclobenzaprine [Flexeril] 10 mg PO TID PRN 11/04/18 11/21/18 Lactobacillus Acidophilus 1 each PO BID 11/04/18 11/21/18 [Acidophilus] Ondansetron HCl [Zofran] 4 mg PO Q8HR PRN 11/04/18 11/21/18 Amino Acids/Protein Hydrolys 30 ml PO DAILY 11/12/18 11/21/18 [Pro-Stat Awc Liquid Packet] Calcium Acetate [Phos-LO] 1,334 mg PO TIDWM 11/12/18 11/21/18 Pregabalin [Lyrica] 100 mg PO BID 11/12/18 11/21/18 Carbidopa/Levodopa 25/100 [Sinemet 1 each PO TID 11/21/18 11/21/18 25/100] Ketoconazole 2% CRM [Nizoral Cream] 1 appl TP BID 11/21/18 11/21/18 Rivastigmine Patch [Exelon] 9.5 mg TD DAILY 11/21/18 11/21/18 Previous Rx's Medication Instructions Recorded Aspirin Enteric Coated [Aspirin EC] 81 mg PO DAILY #60 tablet.dr 10/12/18 Bisacodyl [Dulcolax] 10 mg RC DAILY PRN supp.rect 10/24/18 Ipratropium/Albuterol Neb [Duoneb] 3 ml IH [id number] PRN inhsol 10/24/18 Sennosides/Docusate Sodium [Senna 1 each PO DAILY tablet 10/24/18 Plus] Clopidogrel [Plavix] 75 mg PO DAILY #30 tablet 11/06/18 Lisinopril [Zestril] 2.5 mg PO DAILY #30 tablet 11/06/18 Metoprolol XL (24 HR) Succ [Toprol 12.5 mg PO DAILY #30 tab.er.24h 11/06/18 Xl] Amoxicillin/Clavulanate [Augmentin] 875 mg PO BIDWM 4 Days #8 tablet 11/14/18 Insulin Degludec [Tresiba 40 units SQ HS 30 Days #2 11/14/18 Flextouch U-200] insuln.pen Allergies Allergy/AdvReac Type Severity Reaction Status Date / Time No Known Allergies Allergy Verified 10/04/18 19:00 Past Medical History - Past Medical History Medical history: Reports: cancer, CVA, diabetes, dialysis, glaucoma, hyperlipidemia, hypertension, renal disease, other Surgical history: Reports: angioplasty/stent, cataract, coronary bypass (CABG), orthopedic, other Psychiatric history: Reports: depression - Social History Smoking Status: Never smoker Smokeless Tobacco Status: No Alcohol use: Reports: none Drug use: Reports: none Physical Exam - General Limitations: altered mental status General appearance: lethargic Course Vital Signs Temperature 101.2 F H 11/20/18 23:16 Pulse Rate 92 11/20/18 23:16 Respiratory Rate 17 11/20/18 23:16 Blood Pressure 123/55 11/20/18 23:16 O2 Sat by Pulse Oximetry 96 11/20/18 23:16 Temperature 100.2 F H 11/21/18 01:11 Pulse Rate 81 11/21/18 02:55 Respiratory Rate 20 11/21/18 02:55 Blood Pressure 111/54 11/21/18 02:55 O2 Sat by Pulse Oximetry 99 11/21/18 02:55 Oxygen Delivery Oxygen Delivery Nasal Cannula Medical Decision Making - MDM Narrative Medical decision making narrative: Patient is received in signout from Dr. Calderón and Dr. Martinez at the end of their shift. Please see their documentation for history of presenting illness, physical exam and initial medical decision making. Patient's laboratory testing is suggestive of urinary tract infection. Patient also meet sepsis criteria likely secondary to the urinary tract infection. Chest x-ray was also concerning for atelectasis first pneumonia per radiology read. Patient does not have an elevated white count at this time. Patient's lactic acid is within normal limits. The VBG that was obtained did not show evidence of significant acidosis. Patient was given antibiotics including vancomycin and Zosyn here in the emergency department as well as being given 1 L fluid bolus. Called spoke the admitting hospitalist Dr. Dsouza and she is accepted the patient to their service. Patient be admitted to the hospital this time for further evaluation and management. - Medical Records Medical records reviewed: Yes I reviewed the patient's medical records. - Lab Data Lab results reviewed: Yes I reviewed the patient's lab results. Result diagrams: 11/21/18 01:13 11/21/18 01:13 Lab Results 11/21/18 11/21/18 11/21/18 Range/Units 00:37 01:13 01:13 WBC 8.1 (4.3-11.1) K/mcL RBC 2.79 L (4.19-5.50) M/mcL Hgb 9.0 L (12.9-16.9) g/dL Hct 29.0 L (37.5-50.1) % MCV 103.9 H (83.0-100.0) fL MCH 32.3 (28.0-33.3) pg MCHC 31.0 L (31.6-35.5) g/dL RDW 13.5 (11.5-14.5) % Plt Count 310 (140-400) K/mcL MPV 10.0 (9.4-12.4) fL Immature Gran % 0.2 (0-4) % Seg Neutrophils % 78.7 % Lymphocytes % 13.9 % Monocytes % 5.8 % Eosinophils % 1.2 % Basophils % 0.2 % Neutrophils # 6.3 (1.6-8.9) K/mcL Lymphocytes # 1.1 (0.6-4.6) K/mcL Monocytes # 0.5 (0.0-1.3) K/mcL Eosinophils # 0.1 (0.0-0.6) K/mcL Basophils # 0.0 (0.0-0.2) K/mcL PT 12.6 H (9.4-12.1) Seconds INR 1.1 VBG pH (7.32-7.42) pH Units VBG pCO2 (41-51) mmHg VBG pO2 (25-50) mmHg VBG HCO3 (21-27) mEq/L Sodium (136-145) mEq/L Potassium (3.5-5.1) mEq/L Chloride (98-107) mEq/L Carbon Dioxide (23-29) mEq/L BUN (8-23) mg/dL Creatinine (0.70-1.30) mg/dL Est GFR ( Amer) (> 60) Est GFR (Non-Af Amer) (> 60) BUN/Creatinine Ratio (6-26) Glucose (70-105) mg/dL Calculated Osmolality (280-300) Lactic Acid (0.5-2.2) mmol/L Calcium (8.6-10.3) mg/dL Phosphorus (2.7-4.5) mg/dL Magnesium (1.6-2.6) mg/dL Total Bilirubin (0.3-1.0) mg/dL Direct Bilirubin (0.0-0.2) mg/dL Indirect Bilirubin (0.0-1.2) mg/dL AST (13-39) Units/L ALT (7-52) Units/L Alkaline Phosphatase (34-104) Units/L Troponin I (< 0.04) ng/mL Serum Total Protein (6.4-8.9) g/dL Albumin (3.5-5.7) g/dL Globulin (2.4-3.5) g/dL Albumin/Globulin Ratio (1.1-2.2) Lipase (11-82) Units/L Urine Color Dark Yellow (Yellow) Urine Clarity Cloudy A (Clear) Urine pH 6.0 (5.0-8.0) pH Units Ur Specific [place] 1.021 (1.010-1.025) Urine Protein >=300 H (Neg-Trace) mg/dL Urine Glucose (UA) 250 H (Normal) mg/dL Urine Ketones Negative (Negative) mg/dL Urine Blood Moderate H (Negative) Urine Nitrite Negative (Negative) Urine Bilirubin Small H (Negative) Urine Urobilinogen Normal (Normal) mg/dL Ur Leukocyte Esterase Moderate H (Negative) Urine Microscopic RBC 30-50 H (0-3) per hpf Urine Microscopic WBC TNTC H (0-3) per hpf Ur Squamous Epith Cells None Seen (None-Few) per lpf Urine Bacteria Few (None-Few) per hpf Hyaline Casts None Seen (None-Few) per lpf Urine Yeast Many H (None Seen) per hpf Ur Culture Indicated? YES A (NO) 11/21/18 11/21/18 11/21/18 Range/Units 01:13 01:13 01:36 WBC (4.3-11.1) K/mcL RBC (4.19-5.50) M/mcL Hgb (12.9-16.9) g/dL Hct (37.5-50.1) % MCV (83.0-100.0) fL MCH (28.0-33.3) pg MCHC (31.6-35.5) g/dL RDW (11.5-14.5) % Plt Count (140-400) K/mcL MPV (9.4-12.4) fL Immature Gran % (0-4) % Seg Neutrophils % % Lymphocytes % % Monocytes % % Eosinophils % % Basophils % % Neutrophils # (1.6-8.9) K/mcL Lymphocytes # (0.6-4.6) K/mcL Monocytes # (0.0-1.3) K/mcL Eosinophils # (0.0-0.6) K/mcL Basophils # (0.0-0.2) K/mcL PT (9.4-12.1) Seconds INR VBG pH 7.37 (7.32-7.42) pH Units VBG pCO2 46 (41-51) mmHg VBG pO2 57 H (25-50) mmHg VBG HCO3 26 (21-27) mEq/L Sodium 141 (136-145) mEq/L Potassium 5.0 (3.5-5.1) mEq/L Chloride 106 (98-107) mEq/L Carbon Dioxide 26 (23-29) mEq/L BUN 44 H (8-23) mg/dL Creatinine 5.12 H (0.70-1.30) mg/dL Est GFR ( Amer) 14 L (> 60) Est GFR (Non-Af Amer) 11 L (> 60) BUN/Creatinine Ratio 9 (6-26) Glucose 229 H (70-105) mg/dL Calculated Osmolality 310 H (280-300) Lactic Acid 1.2 (0.5-2.2) mmol/L Calcium 8.1 L (8.6-10.3) mg/dL Phosphorus 3.4 (2.7-4.5) mg/dL Magnesium 2.1 (1.6-2.6) mg/dL Total Bilirubin 0.3 (0.3-1.0) mg/dL Direct Bilirubin 0.0 (0.0-0.2) mg/dL Indirect Bilirubin 0.3 (0.0-1.2) mg/dL AST 8 L (13-39) Units/L ALT < 3 L (7-52) Units/L Alkaline Phosphatase 56 (34-104) Units/L Troponin I < 0.03 (< 0.04) ng/mL Serum Total Protein 6.0 L (6.4-8.9) g/dL Albumin 3.1 L (3.5-5.7) g/dL Globulin 2.9 (2.4-3.5) g/dL Albumin/Globulin Ratio 1.1 (1.1-2.2) Lipase 24 (11-82) Units/L Urine Color (Yellow) Urine Clarity (Clear) Urine pH (5.0-8.0) pH Units Ur Specific [place] (1.010-1.025) Urine Protein (Neg-Trace) mg/dL Urine Glucose (UA) (Normal) mg/dL Urine Ketones (Negative) mg/dL Urine Blood (Negative) Urine Nitrite (Negative) Urine Bilirubin (Negative) Urine Urobilinogen (Normal) mg/dL Ur Leukocyte Esterase (Negative) Urine Microscopic RBC (0-3) per hpf Urine Microscopic WBC (0-3) per hpf Ur Squamous Epith Cells (None-Few) per lpf Urine Bacteria (None-Few) per hpf Hyaline Casts (None-Few) per lpf Urine Yeast (None Seen) per hpf Ur Culture Indicated? (NO) - Radiology Data Radiology results reviewed: Yes I reviewed the patient's radiology results. Chest X-Ray 11/20/18 23:21 IMPRESSION: New left basilar atelectasis or pneumonia. D/ / Shree Spears MD / Shree Spears MD Interpreting Provider: Shree Spears MD Head CT 11/21/18 00:00 IMPRESSION: No acute intracranial abnormality. D/ / Shree Spears MD / Shree Spears MD Interpreting Provider: Shree Spears MD Attestation Statement - Attestation Attestation: I, Lul Mancilla MD, personally evaluated this patient and discussed their management with the resident physician. I reviewed the resident's note and agree with the documented findings, medical decision making, and plan of care. This patient was signed out at shift change from Dr. Toth and Dr. Calderón. Please refer to their notes for complete details of the history and physical examination. Patient presented with fever and altered mental status. At shift change patient is awaiting test results before consult evening the hospitalist for admission. On examination patient is a well-developed well-nourished elderly male in no acute distress. Breath sounds are equal bilaterally. Heart regular rate and rhythm. Abdomen soft with normal bowel sounds. Labs and imaging reviewed. The hospitalist, Dr. Dsouza, was consulted and accepted admission of the patient.
[2018-11-21 02:01] LABS: Alanine Aminotransferase < 3 Units/L (7-52); Albumin 3.1 g/dL (3.5-5.7); Albumin/Globulin Ratio 1.1 (1.1-2.2); Alkaline Phosphatase 56 Units/L (34-104); Aspartate Amino Transferase 8 Units/L (13-39); BUN/Creatinine Ratio 9 (6-26); Bilirubin,Indirect 0.3 mg/dL (0.0-1.2); Bilirubin,Total 0.3 mg/dL (0.3-1.0); Blood Urea Nitrogen 44 mg/dL (8-23); Calcium 8.1 mg/dL (8.6-10.3); Carbon Dioxide 26 mEq/L (23-29); Chloride 106 mEq/L (98-107); Globulin 2.9 g/dL (2.4-3.5); Glucose 229 mg/dL (70-105); Lipase 24 Units/L (11-82); Magnesium 2.1 mg/dL (1.6-2.6); Osmolality,Calculated 310 (280-300); Phosphorous 3.4 mg/dL (2.7-4.5); Sodium 141 mEq/L (136-145); Troponin I < 0.03 ng/mL (< 0.04); eGFR For African Americans 14 (> 60); eGFR For Non-African Americans 11 (> 60)
[2018-11-21] MEDS ORDERED: Naloxone 0.4 MG/ML INJ IVP PRN (03:49)
[2018-11-21] MEDS ORDERED: Bisacodyl 10 MG RECTAL SUPPOSITORY RC PRN (03:54)
[2018-11-21] MEDS ORDERED: Dextrose Gel 15 GM/37.5 ML TUBE PO PRN ×2 (03:58)
[2018-11-21] MEDS ORDERED: *HR* Dextrose 50 % in Water (Syg) 50 ML SYRINGE IVP PRN (03:58)
--- NOTE | 2018-11-21 04:08 | Internal Med History&Physical ---
<Bebeto Maddox - Last Filed: 11/21/18 06:08> Date of Encounter: 11/21/18 Time of Encounter: 03:00 Internal Medicine - H&P: HPI Chief complaint: AMS and fever Admitted From: Emergency Dept Plans for Post Hospital Care: Transfer Residential Facility History of present illness: Mr. Anguiano is a 73 year old male with history of coronary artery disease status post CABG, 9 stents, melanoma, diabetes mellitus, diabetic foot ulcers, sacral decubitus ulcer, ESRD on hemodialysis Sunday and Parkinson's who presented to the ED with his and his son from longterm facility with complaint of altered mental status and fever. The patient was recently admitted to [facility] and discharged on 11/14 for hypoglycemia and suspected urinary tract infection. The patient is highly somnolent and the history is primarily obtained from the patient's family members in the room. According to the patient's , she initially saw him earlier in the afternoon at around p.m. and he appeared fine, however she went back to his room at around 8:30 PM and at that time he seemed very somnolent, and he was slurring his speech and no longer seem to be making sense. In addition this, she said that he felt extremely hot to the touch and seem to be sweating profusely. She said that this was an acute change from previously and she was very concerned about him. She decided that he should be brought to the emergency department. She said prior to this he had not been complaining about any specific symptoms other than that he felt that he had had some pinching of his urinary catheter. He had not been having any fever, cough, chills, sweats prior to this event today that she was aware of. He does have hemodialysis on Sunday, , Sunday and according to the patient's he has not noticed anything. She is not aware of any other sick contacts. She does mention that he has had diabetic foot ulcers on his bilateral lower extremities and he also has a sacral decubitus ulcer at this time. She also mentions that he apparently had a swallow study done at the nursing facility today because he was previously on a honey thick diet. In the emergency department, the patient was found to have a fever of 101.2, heart rate 92. Labs demonstrated WBC 8.1, serum potassium 5.0, creatinine 5.12, glucose 229, lactic acid 1.2. He did have a head CT which was unremarkable as well as a chest x-ray that showed concern for new left basilar atelectasis versus pneumonia. The patient received 1L fluid in ED, vancomycin and Zosyn. Past Med Surg Social Fam HX - Past Medical History Medical history: cancer, CVA, diabetes, dialysis, glaucoma, hyperlipidemia, hypertension, renal disease, other Additional medical history: skin cancer, parkinson Psychiatric history: depression - Past Surgical History Surgical History: angioplasty/stent, cataract, coronary bypass (CABG), orthopedic, other Additional surgical history: left foot surgery, cardiac stents x9, skin cancer removed, back surgery, - Social History Smoking Status: Never smoker Smokeless Tobacco Status: No Alcohol use: none Drug use: none - Family History Father Living Status: Hx Family Cardiac Disorders: Yes Mother Adopted: No Living Status: Hx Family Cardiac Disorders: Yes Hx Family Cancer: Yes (liver cancer) Internal Medicine - H&P: Meds Finasteride [Proscar] 5 mg PO DAILY 01/02/17 [History] Fluticasone Propionate Nasal [Flonase] 100 mcg NS DAILY PRN 01/02/17 [History] Nitroglycerin [Nitrostat] 0.4 mg SL Q5MIN PRN 01/02/17 [History] carBAMazepine [Tegretol] 200 mg PO TID 01/02/17 [History] Ergocalciferol (VITAMIN D2) [Vitamin D2] 50,000 units PO MO 10/04/18 [History] Aspirin Enteric Coated [Aspirin EC] 81 mg PO DAILY #60 tablet. 10/12/18 [Rx] Atorvastatin Calcium [Lipitor] 80 mg PO HS 10/20/18 [History] Insulin LISPRO [HumaLOG] 0 units SQ TIDWM 10/20/18 [History] Bisacodyl [Dulcolax] 10 mg RC DAILY PRN supp.rect 10/24/18 [Rx] Ipratropium/Albuterol Neb [Duoneb] 3 ml IH [id number] PRN inhsol 10/24/18 [Rx] Sennosides/Docusate Sodium [Senna Plus] 1 each PO DAILY tablet 10/24/18 [Rx] Cyclobenzaprine [Flexeril] 10 mg PO TID PRN 11/04/18 [History] Lactobacillus Acidophilus [Acidophilus] 1 each PO BID 11/04/18 [History] Ondansetron HCl [Zofran] 4 mg PO Q8HR PRN 11/04/18 [History] Clopidogrel [Plavix] 75 mg PO DAILY #30 tablet 11/06/18 [Rx] Lisinopril [Zestril] 2.5 mg PO DAILY #30 tablet 11/06/18 [Rx] Metoprolol XL (24 HR) Succ [Toprol Xl] 12.5 mg PO DAILY #30 tab.er.24h 11/06/18 [Rx] Amino Acids/Protein Hydrolys [Pro-Stat Awc Liquid Packet] 30 ml PO DAILY 01/23 [History] Calcium Acetate [Phos-LO] 1,334 mg PO TIDWM 11/12/18 [History] Pregabalin [Lyrica] 100 mg PO BID 11/12/18 [History] Amoxicillin/Clavulanate [Augmentin] 875 mg PO BIDWM 4 Days #8 tablet 11/14/18 [Rx] Insulin Degludec [Tresiba Flextouch U-200] 40 units SQ HS 30 Days #2 insuln.pen 11/14/18 [Rx] Carbidopa/Levodopa 25/100 [Sinemet 25/100] 1 each PO TID 11/21/18 [History] Ketoconazole 2% CRM [Nizoral Cream] 1 appl TP BID 11/21/18 [History] Rivastigmine Patch [Exelon] 9.5 mg TD DAILY 11/21/18 [History] Allergy/AdvReac Type Severity Reaction Status Date / Time No Known Allergies Allergy Verified 10/04/18 19:00 ROS unobtainable: due to mental status All Systems PM: A 10-system review of systems was performed and is negative for pertinent findings except as documented above in the HPI. - Constitutional Vitals: Temp Pulse Resp BP Pulse Ox 100.2 F H 81 20 106/54 99 11/21/18 01:11 11/21/18 02:55 11/21/18 03:53 11/21/18 03:53 11/21/18 02:55 Exam: Gen: Vitals noted. No acute distress. Patient is highly somnolent and does not respond to most commands. Eyes: anicteric sclerae, moist conjunctivae; no lid-lag; Pupils equal and reactive to light HENT: Atraumatic; oropharynx clear with dry mucous membranes and no mucosal ulcerations; normal hard and soft palate Neck: Trachea midline; supple, no thyromegaly or lymphadenopathy. Neck is somewhat stiff and rotation, patient does complain of pain Cardiac: RRR, no murmur, +S1/S2. Pulmonary: CTA bilaterally, no wheezes, rales or rhonchi, equal chest expansion. Diminished on left Abdomen: soft, nontender, no guarding. No masses or hepatosplenomegaly MSK: ROM intact with slight motion, negative obturator sign, no joint swelling noted. Extremities: no BLE edema, nontender calf, no cyanosis or clubbing Skin: Normal turgor and texture; no rash. Diaphoretic. Bilateral feet are wrapped due to diabetic foot ulcers. I did not unwrap them. There is dressing on sacral decubitus ulcer which I did not undress. Permanent tunneled HD cath in place on right upper chest wall intact. No irritation or erythema surrounding. Neuro: moves all extremities. Patient is highly somnolent. He does awake to physical stimuli, however he is irritable, answers some questions appropriately, but is not highly cooperative. Oriented to self and place. Will not answer question on time. Psych: unable to assess. Internal Med - H&P Results - Labs CBC & Chem 7: 11/21/18 01:13 11/21/18 01:13 Labs: Short CBC 11/21/18 Range/Units 01:13 WBC 8.1 (4.3-11.1) K/mcL Hgb 9.0 L (12.9-16.9) g/dL Hct 29.0 L (37.5-50.1) % Plt Count 310 (140-400) K/mcL Neutrophils # 6.3 (1.6-8.9) K/mcL BMP 11/21/18 01:13 Sodium 141 Potassium 5.0 Chloride 106 Carbon Dioxide 26 BUN 44 H Creatinine 5.12 H Glucose 229 H Calcium 8.1 L Cardiac Enzymes 11/21/18 Range/Units 01:13 Troponin I < 0.03 (< 0.04) ng/mL Liver Function 11/21/18 Range/Units 01:13 Total Bilirubin 0.3 (0.3-1.0) mg/dL Direct Bilirubin 0.0 (0.0-0.2) mg/dL AST 8 L (13-39) Units/L ALT < 3 L (7-52) Units/L Alkaline Phosphatase 56 (34-104) Units/L Albumin 3.1 L (3.5-5.7) g/dL Urine 11/21/18 Range/Units 00:37 Urine Color Dark Yellow (Yellow) Urine Clarity Cloudy A (Clear) Urine pH 6.0 (5.0-8.0) pH Units Ur Specific [place] 1.021 (1.010-1.025) Urine Protein >=300 H (Neg-Trace) mg/dL Urine Glucose (UA) 250 H (Normal) mg/dL - ABG Interpretation ABG results: 11/21/18 01:36 VBG pH 7.37 VBG pCO2 46 VBG pO2 57 H VBG HCO3 26 - Impressions ITS Impressions Chest X-Ray 11/20/18 23:21 IMPRESSION: New left basilar atelectasis or pneumonia. D/ / Shree Spears MD / Shree Spears MD Interpreting Provider: Shree Spears MD Head CT 11/21/18 00:00 IMPRESSION: No acute intracranial abnormality. D/ / Shree Spears MD / Shree Spears MD Interpreting Provider: Shree Spears MD - Assessment and Plan (1) Sepsis Current Visit: Yes Status: Acute Assessment and plan: Sepsis, unknown etiology SIRS Criteria: Temp 101.2, HR 92. Multiple sources of infection present, Sacral decubitus ulcer, multiple diabetic foot ulcers. Possible UTI Presents with altered mentation, elevated temp. Was discharged one week ago on Augmentin for UTI CXR Shows possible new LLL consolidation vs atelectasis. UA significant, however patient does not make copious urine These symptoms did arise within about 4-5 hours according to patient's Blood cultures pending Plan Empiric Vancomycin + Cefepime + Flagyl pending cultures Continue cautious fluids, 75mL/hr given ESRD + HFrEF Will check Procalcitonin, ESR, CRP Trend CBC and BMP Consider further imaging with CT chest/abd/pelvis Consider ID consult Qualifiers: Sepsis type: sepsis due to unspecified organism Qualified Code(s): A41.9 - Sepsis, unspecified organism (2) Acute metabolic encephalopathy Current Visit: Yes Status: Acute Assessment and plan: Acute encephalopathy, likely secondary to sepsis Patient was last known well at 1pm today by Head CT negative for acute intracranial findings Hepatic function appears normal, although ESRD, no evidence of uremia Will continue to monitor with addition of ABX (3) Chronic indwelling Leal catheter Current Visit: Yes Status: Acute Assessment and plan: Indwelling catheter, unknown duration Consider urology consult to discuss removal if patient does not make significant urine (4) Sacral decubitus ulcer Current Visit: Yes Status: Acute Assessment and plan: Present on admission Wound care, turning Qualifiers: Pressure injury stage: unspecified pressure injury stage Qualified Code(s): L89.159 - Pressure ulcer of sacral region, unspecified stage (5) CAD (coronary artery disease) Current Visit: No Status: Chronic Assessment and plan: CAD s/p CABGx4 + 9 stents Continue ASA, plavix, ALINE, statin, BB Qualifiers: Coronary Disease-Associated Artery/Lesion type: bypass graft [place] vs. 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: with halfway use Diabetes mellitus complication status: with kidney complications Diabetes mellitus complication detail: with chronic kidney disease Chronic kidney disease stage: unspecified stage Qualified Code(s): E11.22 - Type 2 diabetes mellitus with diabetic chronic kidney disease; 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 (7) Diabetic foot ulcer Current Visit: Yes Status: Acute Assessment and plan: DM foot ulcer on b/l feet Will check ESR + CRP at this time Possible source of infection for sepsis, may require repeat imaging Qualifiers: Diabetic foot ulcer location: other Diabetes mellitus type: type 2 Laterality: left Non-pressure ulcer stage: with fat layer exposed Qualified Code(s): E11.621 - Type 2 diabetes mellitus with foot ulcer; L97.522 - Non-pre ssure chronic ulcer of other part of left foot with fat layer exposed (8) ESRD (end stage renal disease) on dialysis Current Visit: No Status: Chronic Assessment and plan: ESRD on HD TTS Consult to Nephrology for management (9) Systolic CHF with reduced left ventricular function, NYHA class 2 Current Visit: No Status: Acute Assessment and plan: HFrEF Echo 09/22 showed LVEF 35% with severe global LV systolic dysfunction and mild diastolic dysfunction While the patient does present with sepsis at time of admission, will avoid rapid expansion of fluids and fluid overload in setting of HFrEF + ESRD - Time Spent With Patient Total time spent is greater than 50% in coordination of care (as documented) at patient's floor/unit and/or counseling patient: <Liza Dsouza - Last Filed: 11/21/18 08:09> Date of Encounter: 11/21/18 Internal Medicine - H&P: HPI History of present illness: Mr. Anguiano is a 73 year old male All Systems PM: A 10-system review of systems was performed and is negative for pertinent findings except as documented above in the HPI. - Constitutional Vitals: Temp Pulse Resp BP Pulse Ox 98.3 F 71 20 119/67 100 11/21/18 08:04 11/21/18 08:04 11/21/18 08:04 11/21/18 08:04 11/21/18 08:04 Internal Med - H&P Results - Labs CBC & Chem 7: 11/21/18 01:13 11/21/18 01:13 Labs: Short CBC 11/21/18 Range/Units 01:13 WBC 8.1 (4.3-11.1) K/mcL Hgb 9.0 L (12.9-16.9) g/dL Hct 29.0 L (37.5-50.1) % Plt Count 310 (140-400) K/mcL Neutrophils # 6.3 (1.6-8.9) K/mcL BMP 11/21/18 01:13 Sodium 141 Potassium 5.0 Chloride 106 Carbon Dioxide 26 BUN 44 H Creatinine 5.12 H Glucose 229 H Calcium 8.1 L Cardiac Enzymes 11/21/18 Range/Units 01:13 Troponin I < 0.03 (< 0.04) ng/mL Liver Function 11/21/18 Range/Units 01:13 Total Bilirubin 0.3 (0.3-1.0) mg/dL Direct Bilirubin 0.0 (0.0-0.2) mg/dL AST 8 L (13-39) Units/L ALT < 3 L (7-52) Units/L Alkaline Phosphatase 56 (34-104) Units/L Albumin 3.1 L (3.5-5.7) g/dL Urine 11/21/18 Range/Units 00:37 Urine Color Dark Yellow (Yellow) Urine Clarity Cloudy A (Clear) Urine pH 6.0 (5.0-8.0) pH Units Ur Specific [place] 1.021 (1.010-1.025) Urine Protein >=300 H (Neg-Trace) mg/dL Urine Glucose (UA) 250 H (Normal) mg/dL - ABG Interpretation ABG results: 11/21/18 01:36 VBG pH 7.37 VBG pCO2 46 VBG pO2 57 H VBG HCO3 26 - Impressions ITS Impressions Chest X-Ray 11/20/18 23:21 IMPRESSION: New left basilar atelectasis or pneumonia. D/ / Shree Spears MD / Shree Spears MD Interpreting Provider: Shree Spears MD Head CT 11/21/18 00:00 IMPRESSION: No acute intracranial abnormality. D/ / Shree Spears MD / Shree Spears MD Interpreting Provider: Shree Spears MD - Time Spent With Patient Total time spent is greater than 50% in coordination of care (as documented) at patient's floor/unit and/or counseling patient: - Attending Attestation I performed a history and physical examination of the patient and discussed his management with the resident. I reviewed the residents note and agree with the documented findings and plan of care.
[2018-11-21] MEDS: 0.9 % Sodium Chloride 1,000 ML IVC SCH (05:18)
[2018-11-21] MEDS: Insulin LISPRO 300 UNITS/3 ML VIAL SQ SCH ×4 (05:19→21:26)
[2018-11-21] MEDS ORDERED: MetroNIDAZOLE 500 MG/100 ML 500 MG/100 ML BAG IVPB SCH (06:00)
[2018-11-21] MEDS ORDERED: 0.9 % Sodium Chloride 250 ML IVC PRN (07:44)
[2018-11-21] MEDS ORDERED: *HR* Heparin 10,000 UNIT/10 ML VIAL IV PRN (07:44)
[2018-11-21] MEDS ORDERED: 0.9 % Sodium Chloride 1,000 ML PRIME SCH (07:45)
[2018-11-21] MEDS ORDERED: Cefepime HCl 1,000 MG in Water for inj. (sterile) 10 ML IVP ONE (07:46)
[2018-11-21] MEDS ORDERED: Piperacillin/Tazobactam 3.375 GM in 0.9 % Sodium Chloride Mini Bag 100 ML IVPB SCH (08:00)
[2018-11-21] MEDS ORDERED: Cefepime HCl 1,000 MG in Water for inj. (sterile) 10 ML IVP SCH (09:00)
--- NOTE | 2018-11-21 09:15 | Nephrology Consult Note ---
Date of Encounter: 11/21/18 Time of Encounter: 09:12 Assessment and Plan (1) ESRD (end stage renal disease) on dialysis Current Visit: Yes Status: Acute HD TTS at [facility]. HD in progress for today. Renal diet. Strict I/O Avoid nephrotoxins and renal dose all medications. (2) Altered mental status Current Visit: Yes Status: Acute Per primary. Qualifiers: Altered mental status type: unspecified Qualified Code(s): R41.82 - Altered mental status, unspecified (3) Chronic indwelling Leal catheter Current Visit: Yes Status: Acute Per primary. (4) Anemia Current Visit: Yes Status: Chronic Hgb is 9, stable. Transfusion per primary team. Qualifiers: Anemia type: unspecified type Qualified Code(s): D64.9 - Anemia, u nspecified History of Present Illness - Reason for Consult Consult date: 11/21/18 end stage renal disease Requesting physician: Jeannie Clarke - Chief Complaint AMS - History of Present Illness Mr. Anguiano is a 73 year old male who presented to ED for AMS x 1 day. PMH: CHF, CABG, CVA with right-sided deficit and ESRD TTS at [facility]. Last HD session was Sunday without complication. Pt resides in at [facility] in [place]. Pt is poor historian, no family member at bedside. Most information was collected from EMR and previous records. Upon examination, patient was drowsy but able to answer questions. ROS unobtainable due to mentation. Denies tobacco use, etoh, or illicit drug use. The patient start HD in May of this year for [facility]. He changed to [facility] approximately 1 month ago. HD in progress for today. Past Med Surg Social Fam HX - Past Medical History Medical history: cancer, CVA, diabetes, dialysis, glaucoma, hyperlipidemia, hypertension, renal disease, other Additional medical history: skin cancer, parkinson Psychiatric history: depression - Past Surgical History Surgical History: angioplasty/stent, cataract, coronary bypass (CABG), orthopedic, other Additional surgical history: left foot surgery, cardiac stents x9, skin cancer removed, back surgery, - Social History Smoking Status: Never smoker Smokeless Tobacco Status: No Alcohol use: none Drug use: none - Family History Father Living Status: Hx Family Cardiac Disorders: Yes Mother Adopted: No Living Status: Hx Family Cardiac Disorders: Yes Hx Family Cancer: Yes (liver cancer) Medications and Allergies Finasteride [Proscar] 5 mg PO DAILY 01/02/17 [History] Fluticasone Propionate Nasal [Flonase] 100 mcg NS DAILY PRN 01/02/17 [History] Nitroglycerin [Nitrostat] 0.4 mg SL Q5MIN PRN 01/02/17 [History] carBAMazepine [Tegretol] 200 mg PO TID 01/02/17 [History] Ergocalciferol (VITAMIN D2) [Vitamin D2] 50,000 units PO MO 10/04/18 [History] Aspirin Enteric Coated [Aspirin EC] 81 mg PO DAILY #60 tablet.dr 10/12/18 [Rx] Atorvastatin Calcium [Lipitor] 80 mg PO HS 10/20/18 [History] Insulin LISPRO [HumaLOG] 0 units SQ TIDWM 10/20/18 [History] Bisacodyl [Dulcolax] 10 mg RC DAILY PRN supp.rect 10/24/18 [Rx] Ipratropium/Albuterol Neb [Duoneb] 3 ml IH [id number] PRN inhsol 10/24/18 [Rx] Sennosides/Docusate Sodium [Senna Plus] 1 each PO DAILY tablet 10/24/18 [Rx] Cyclobenzaprine [Flexeril] 10 mg PO TID PRN 11/04/18 [History] Lactobacillus Acidophilus [Acidophilus] 1 each PO BID 11/04/18 [History] Ondansetron HCl [Zofran] 4 mg PO Q8HR PRN 11/04/18 [History] Clopidogrel [Plavix] 75 mg PO DAILY #30 tablet 11/06/18 [Rx] Lisinopril [Zestril] 2.5 mg PO DAILY #30 tablet 11/06/18 [Rx] Metoprolol XL (24 HR) Succ [Toprol Xl] 12.5 mg PO DAILY #30 tab.er.24h 11/06/18 [Rx] Amino Acids/Protein Hydrolys [Pro-Stat Awc Liquid Packet] 30 ml PO DAILY 11/12/18 [History] Calcium Acetate [Phos-LO] 1,334 mg PO TIDWM 11/12/18 [History] Pregabalin [Lyrica] 100 mg PO BID 11/12/18 [History] Amoxicillin/Clavulanate [Augmentin] 875 mg PO BIDWM 4 Days #8 tablet 11/14/18 [Rx] Insulin Degludec [Tresiba Flextouch U-200] 40 units SQ HS 30 Days #2 insuln.pen 11/14/18 [Rx] Carbidopa/Levodopa 25/100 [Sinemet 25/100] 1 each PO TID 11/21/18 [History] Ketoconazole 2% CRM [Nizoral Cream] 1 appl TP BID 11/21/18 [History] Rivastigmine Patch [Exelon] 9.5 mg TD DAILY 11/21/18 [History] Allergy/AdvReac Type Severity Reaction Status Date / Time No Known Allergies Allergy Verified 10/04/18 19:00 Review of Systems ROS unobtainable: due to mental status Exam - Vital Signs Vital signs: Initial Vital Signs Temp Pulse Resp BP Pulse Ox 101.2 F H 92 17 123/55 96 11/20/18 23:16 11/20/18 23:16 11/20/18 23:16 11/20/18 23:16 11/20/18 23:16 Vital Signs - Last 8 Hours Temp Pulse Resp BP Pulse Ox 11/21/18 08:04 98.3 F 71 20 119/67 100 11/21/18 04:41 99 F 71 16 111/62 98 11/21/18 03:53 20 106/54 11/21/18 02:55 81 20 111/54 99 Intake and Output 11/20/18 11/21/18 11/21/18 23:59 07:59 15:59 Intake Total 1020 / 1020 0 / 1020 Balance 1020 / 1020 0 / 1020 Intake: IV Fluids 1020 / 1020 0.9 % Sodium Chloride 1,000 ML 1000 / 1000 @ 999 mls/hr IVC .Q1H1M ONE Rx# :[id number] Zosyn 2.25 GM In Water for inj. 20 / 20 (sterile) 20 ML @ 400 mls/hr IVP NOW STA Rx#:[id number] Oral 0 / 0 0 / 0 Other: Stool Size Moderate Stool Consistency formed Stool Color Brown Yellow # Bowel Movement Diapers 1 Weight 91.716 kg 88.2 kg Blood Glucose* 188 Patient Weight 11/21/18 23:59 Weight 88.2 kg - General Appearance General appearance: well-developed, well-nourished EENT: ATNC, hearing intact, vision intact Neck: supple Respiratory: clear Cardiology: no edema, normal S1, normal S2 - Dialysis Access Dialysis Vascular Access: Venous Catheter (DRSG C/D/I) Gastrointestinal: normoactive bowel sounds, no tenderness, no guarding Integumentary: no rash, warm and dry Neurologic: alert and oriented x3 Musculoskeletal: no deformities, no erythema Psychiatric: mood/affect appropriate, cooperative Results - Lab Results 11/21/18 01:13 11/21/18 01:13 Most recent lab results 11/21/18 01:13 Calcium 8.1 L Phosphorus 3.4 Magnesium 2.1 Consult Discharge Plan - Plan [facility]errals: [facility]Primary Care Provider[facility] -
[2018-11-21] MEDS ORDERED: *HR* Alteplase (Cathflo) 2 MG VIAL IVP ONE ×2 (10:09→10:30)
[2018-11-21] MEDS: Metoprolol XL (24 HR) Succ 25 MG TAB.ER.24H PO SCH (10:38)
[2018-11-21] MEDS: Calcium Acetate 667 MG CAPSULE PO SCH ×3 (10:50→17:27)
[2018-11-21] MEDS: Aspirin Enteric Coated 81 MG Tablet PO SCH (10:51)
[2018-11-21] MEDS: Rivastigmine Patch 9.5 MG PATCH.TD24 TD SCH (10:51)
[2018-11-21] MEDS: Finasteride 5 MG TABLET PO SCH (10:54)
[2018-11-21] MEDS: carBAMazepine 200 MG TABLET PO SCH ×3 (10:54→20:29)
[2018-11-21] MEDS: Carbidopa/Levodopa 25/100 TABLET PO SCH ×3 (10:54→20:29)
[2018-11-21] MEDS: *HR* Heparin 5,000 UNIT/ML VIAL SQ SCH ×2 (15:51→20:29)
[2018-11-21] MEDS: MetroNIDAZOLE 500 MG/100 ML 500 MG/100 ML BAG IVPB SCH (15:51)
--- NOTE | 2018-11-21 15:56 | Emergency Department Note ---
Disposition Clinical Impression: ESRD (end stage renal disease) Altered mental status Qualifiers: Altered mental status type: unspecified Qualified Code(s): R41.82 - Altered mental status, unspecified Sepsis Qualifiers: Sepsis type: sepsis due to unspecified organism Qualified Code(s): A41.9 - Sepsis, unspecified organism Disposition: Still a Patient Condition: Serious Time of Disposition: 01:00 General Adult HPI - General Chief complaint: ED Neuro Symptoms/Deficit Time Seen by Provider: 11/20/18 23:13 Source: patient, EMS Mode of arrival: EMS Limitations: altered mental status - History of Present Illness Pain Scale: 0 - Related Data Home Medications Medication Instructions Recorded Confirmed Finasteride [Proscar] 5 mg PO DAILY 01/02/17 11/21/18 Fluticasone Propionate Nasal 100 mcg NS DAILY PRN 01/02/17 11/21/18 [Flonase] Nitroglycerin [Nitrostat] 0.4 mg SL Q5MIN PRN 01/02/17 11/21/18 carBAMazepine [Tegretol] 200 mg PO TID 01/02/17 11/21/18 Ergocalciferol (VITAMIN D2) 50,000 units PO MO 10/04/18 11/21/18 [Vitamin D2] Atorvastatin Calcium [Lipitor] 80 mg PO HS 10/20/18 11/21/18 Insulin LISPRO [HumaLOG] 0 units SQ TIDWM 10/20/18 11/21/18 Cyclobenzaprine [Flexeril] 10 mg PO TID PRN 11/04/18 11/21/18 Lactobacillus Acidophilus 1 each PO BID 11/04/18 11/21/18 [Acidophilus] Ondansetron HCl [Zofran] 4 mg PO Q8HR PRN 11/04/18 11/21/18 Amino Acids/Protein Hydrolys 30 ml PO DAILY 11/12/18 11/21/18 [Pro-Stat Awc Liquid Packet] Calcium Acetate [Phos-LO] 1,334 mg PO TIDWM 11/12/18 11/21/18 Pregabalin [Lyrica] 100 mg PO BID 11/12/18 11/21/18 Carbidopa/Levodopa 25/100 [Sinemet 1 each PO TID 11/21/18 11/21/18 25/100] Ketoconazole 2% CRM [Nizoral Cream] 1 appl TP BID 11/21/18 11/21/18 Rivastigmine Patch [Exelon] 9.5 mg TD DAILY 11/21/18 11/21/18 Previous Rx's Medication Instructions Recorded Aspirin Enteric Coated [Aspirin EC] 81 mg PO DAILY #60 tablet. 10/12/18 Bisacodyl [Dulcolax] 10 mg RC DAILY PRN supp.rect 10/24/18 Ipratropium/Albuterol Neb [Duoneb] 3 ml IH [id number] PRN inhsol 10/24/18 Sennosides/Docusate Sodium [Senna 1 each PO DAILY tablet 10/24/18 Plus] Clopidogrel [Plavix] 75 mg PO DAILY #30 tablet 11/06/18 Lisinopril [Zestril] 2.5 mg PO DAILY #30 tablet 11/06/18 Metoprolol XL (24 HR) Succ [Toprol 12.5 mg PO DAILY #30 tab.er.24h 11/06/18 Xl] Amoxicillin/Clavulanate [Augmentin] 875 mg PO BIDWM 4 Days #8 tablet 11/14/18 Insulin Degludec [Tresiba 40 units SQ HS 30 Days #2 11/14/18 Flextouch U-200] insuln.pen Allergies Allergy/AdvReac Type Severity Reaction Status Date / Time No Known Allergies Allergy Verified 10/04/18 19:00 Past Medical History - Past Medical History Medical history: Reports: cancer, CVA, diabetes, dialysis, glaucoma, hyperlipidemia, hypertension, renal disease, other Surgical history: Reports: angioplasty/stent, cataract, coronary bypass (CABG), orthopedic, other Psychiatric history: Reports: depression - Social History Smoking Status: Never smoker Smokeless Tobacco Status: No Alcohol use: Reports: none Drug use: Reports: none Physical Exam - General Limitations: altered mental status General appearance: lethargic Course Vital Signs Temperature 101.2 F H 11/20/18 23:16 Pulse Rate 92 11/20/18 23:16 Respiratory Rate 17 11/20/18 23:16 Blood Pressure 123/55 11/20/18 23:16 O2 Sat by Pulse Oximetry 96 11/20/18 23:16 Temperature 98.6 F 11/21/18 13:02 Pulse Rate 71 11/21/18 08:04 Respiratory Rate 18 11/21/18 13:02 Blood Pressure 134/50 11/21/18 13:02 O2 Sat by Pulse Oximetry 100 11/21/18 08:04 Oxygen Delivery Oxygen Delivery Nasal Cannula Medical Decision Making - Lab Data Result diagrams: 11/21/18 01:13 11/21/18 01:13 Lab Results 11/21/18 11/21/18 11/21/18 Range/Units 00:37 01:13 01:13 WBC 8.1 (4.3-11.1) K/mcL RBC 2.79 L (4.19-5.50) M/mcL Hgb 9.0 L (12.9-16.9) g/dL Hct 29.0 L (37.5-50.1) % MCV 103.9 H (83.0-100.0) fL MCH 32.3 (28.0-33.3) pg MCHC 31.0 L (31.6-35.5) g/dL RDW 13.5 (11.5-14.5) % Plt Count 310 (140-400) K/mcL MPV 10.0 (9.4-12.4) fL Immature Gran % 0.2 (0-4) % Seg Neutrophils % 78.7 % Lymphocytes % 13.9 % Monocytes % 5.8 % Eosinophils % 1.2 % Basophils % 0.2 % Neutrophils # 6.3 (1.6-8.9) K/mcL Lymphocytes # 1.1 (0.6-4.6) K/mcL Monocytes # 0.5 (0.0-1.3) K/mcL Eosinophils # 0.1 (0.0-0.6) K/mcL Basophils # 0.0 (0.0-0.2) K/mcL ESR (0-10) mm/hr PT 12.6 H (9.4-12.1) Seconds INR 1.1 VBG pH (7.32-7.42) pH Units VBG pCO2 (41-51) mmHg VBG pO2 (25-50) mmHg VBG HCO3 (21-27) mEq/L Sodium (136-145) mEq/L Potassium (3.5-5.1) mEq/L Chloride (98-107) mEq/L Carbon Dioxide (23-29) mEq/L BUN (8-23) mg/dL Creatinine (0.70-1.30) mg/dL Est GFR ( Amer) (> 60) Est GFR (Non-Af Amer) (> 60) BUN/Creatinine Ratio (6-26) Glucose (70-105) mg/dL POC Glucose (70-99) mg/dL Calculated Osmolality (280-300) Lactic Acid (0.5-2.2) mmol/L Calcium (8.6-10.3) mg/dL Phosphorus (2.7-4.5) mg/dL Magnesium (1.6-2.6) mg/dL Total Bilirubin (0.3-1.0) mg/dL Direct Bilirubin (0.0-0.2) mg/dL Indirect Bilirubin (0.0-1.2) mg/dL AST (13-39) Units/L ALT (7-52) Units/L Alkaline Phosphatase (34-104) Units/L Troponin I (< 0.04) ng/mL C-Reactive Protein (Less than 10) mg/L Serum Total Protein (6.4-8.9) g/dL Albumin (3.5-5.7) g/dL Globulin (2.4-3.5) g/dL Albumin/Globulin Ratio (1.1-2.2) Lipase (11-82) Units/L Procalcitonin (0.00-0.15) ng/mL Urine Color Dark Yellow (Yellow) Urine Clarity Cloudy A (Clear) Urine pH 6.0 (5.0-8.0) pH Units Ur Specific [place] 1.021 (1.010-1.025) Urine Protein >=300 H (Neg-Trace) mg/dL Urine Glucose (UA) 250 H (Normal) mg/dL Urine Ketones Negative (Negative) mg/dL Urine Blood Moderate H (Negative) Urine Nitrite Negative (Negative) Urine Bilirubin Small H (Negative) Urine Urobilinogen Normal (Normal) mg/dL Ur Leukocyte Esterase Moderate H (Negative) Urine Microscopic RBC 30-50 H (0-3) per hpf Urine Microscopic WBC TNTC H (0-3) per hpf Ur Squamous Epith Cells None Seen (None-Few) per lpf Urine Bacteria Few (None-Few) per hpf Hyaline Casts None Seen (None-Few) per lpf Urine Yeast Many H (None Seen) per hpf Ur Culture Indicated? YES A (NO) 11/21/18 11/21/18 11/21/18 Range/Units 01:13 01:13 01:36 WBC (4.3-11.1) K/mcL RBC (4.19-5.50) M/mcL Hgb (12.9-16.9) g/dL Hct (37.5-50.1) % MCV (83.0-100.0) fL MCH (28.0-33.3) pg MCHC (31.6-35.5) g/dL RDW (11.5-14.5) % Plt Count (140-400) K/mcL MPV (9.4-12.4) fL Immature Gran % (0-4) % Seg Neutrophils % % Lymphocytes % % Monocytes % % Eosinophils % % Basophils % % Neutrophils # (1.6-8.9) K/mcL Lymphocytes # (0.6-4.6) K/mcL Monocytes # (0.0-1.3) K/mcL Eosinophils # (0.0-0.6) K/mcL Basophils # (0.0-0.2) K/mcL ESR (0-10) mm/hr PT (9.4-12.1) Seconds INR VBG pH 7.37 (7.32-7.42) pH Units VBG pCO2 46 (41-51) mmHg VBG pO2 57 H (25-50) mmHg VBG HCO3 26 (21-27) mEq/L Sodium 141 (136-145) mEq/L Potassium 5.0 (3.5-5.1) mEq/L Chloride 106 (98-107) mEq/L Carbon Dioxide 26 (23-29) mEq/L BUN 44 H (8-23) mg/dL Creatinine 5.12 H (0.70-1.30) mg/dL Est GFR ( Amer) 14 L (> 60) Est GFR (Non-Af Amer) 11 L (> 60) BUN/Creatinine Ratio 9 (6-26) Glucose 229 H (70-105) mg/dL POC Glucose (70-99) mg/dL Calculated Osmolality 310 H (280-300) Lactic Acid 1.2 (0.5-2.2) mmol/L Calcium 8.1 L (8.6-10.3) mg/dL Phosphorus 3.4 (2.7-4.5) mg/dL Magnesium 2.1 (1.6-2.6) mg/dL Total Bilirubin 0.3 (0.3-1.0) mg/dL Direct Bilirubin 0.0 (0.0-0.2) mg/dL Indirect Bilirubin 0.3 (0.0-1.2) mg/dL AST 8 L (13-39) Units/L ALT < 3 L (7-52) Units/L Alkaline Phosphatase 56 (34-104) Units/L Troponin I < 0.03 (< 0.04) ng/mL C-Reactive Protein (Less than 10) mg/L Serum Total Protein 6.0 L (6.4-8.9) g/dL Albumin 3.1 L (3.5-5.7) g/dL Globulin 2.9 (2.4-3.5) g/dL Albumin/Globulin Ratio 1.1 (1.1-2.2) Lipase 24 (11-82) Units/L Procalcitonin (0.00-0.15) ng/mL Urine Color (Yellow) Urine Clarity (Clear) Urine pH (5.0-8.0) pH Units Ur Specific [place] (1.010-1.025) Urine Protein (Neg-Trace) mg/dL Urine Glucose (UA) (Normal) mg/dL Urine Ketones (Negative) mg/dL Urine Blood (Negative) Urine Nitrite (Negative) Urine Bilirubin (Negative) Urine Urobilinogen (Normal) mg/dL Ur Leukocyte Esterase (Negative) Urine Microscopic RBC (0-3) per hpf Urine Microscopic WBC (0-3) per hpf Ur Squamous Epith Cells (None-Few) per lpf Urine Bacteria (None-Few) per hpf Hyaline Casts (None-Few) per lpf Urine Yeast (None Seen) per hpf Ur Culture Indicated? (NO) 11/21/18 11/21/18 11/21/18 Range/Units 04:56 04:56 04:56 WBC (4.3-11.1) K/mcL RBC (4.19-5.50) M/mcL Hgb (12.9-16.9) g/dL Hct (37.5-50.1) % MCV (83.0-100.0) fL MCH (28.0-33.3) pg MCHC (31.6-35.5) g/dL RDW (11.5-14.5) % Plt Count (140-400) K/mcL MPV (9.4-12.4) fL Immature Gran % (0-4) % Seg Neutrophils % % Lymphocytes % % Monocytes % % Eosinophils % % Basophils % % Neutrophils # (1.6-8.9) K/mcL Lymphocytes # (0.6-4.6) K/mcL Monocytes # (0.0-1.3) K/mcL Eosinophils # (0.0-0.6) K/mcL Basophils # (0.0-0.2) K/mcL ESR 84 H (0-10) mm/hr PT (9.4-12.1) Seconds INR VBG pH (7.32-7.42) pH Units VBG pCO2 (41-51) mmHg VBG pO2 (25-50) mmHg VBG HCO3 (21-27) mEq/L Sodium (136-145) mEq/L Potassium (3.5-5.1) mEq/L Chloride (98-107) mEq/L Carbon Dioxide (23-29) mEq/L BUN (8-23) mg/dL Creatinine (0.70-1.30) mg/dL Est GFR ( Amer) (> 60) Est GFR (Non-Af Amer) (> 60) BUN/Creatinine Ratio (6-26) Glucose (70-105) mg/dL POC Glucose (70-99) mg/dL Calculated Osmolality (280-300) Lactic Acid 1.2 (0.5-2.2) mmol/L Calcium (8.6-10.3) mg/dL Phosphorus (2.7-4.5) mg/dL Magnesium (1.6-2.6) mg/dL Total Bilirubin (0.3-1.0) mg/dL Direct Bilirubin (0.0-0.2) mg/dL Indirect Bilirubin (0.0-1.2) mg/dL AST (13-39) Units/L ALT (7-52) Units/L Alkaline Phosphatase (34-104) Units/L Troponin I (< 0.04) ng/mL C-Reactive Protein 108 H (Less than 10) mg/L Serum Total Protein (6.4-8.9) g/dL Albumin (3.5-5.7) g/dL Globulin (2.4-3.5) g/dL Albumin/Globulin Ratio (1.1-2.2) Lipase (11-82) Units/L Procalcitonin (0.00-0.15) ng/mL Urine Color (Yellow) Urine Clarity (Clear) Urine pH (5.0-8.0) pH Units Ur Specific [place] (1.010-1.025) Urine Protein (Neg-Trace) mg/dL Urine Glucose (UA) (Normal) mg/dL Urine Ketones (Negative) mg/dL Urine Blood (Negative) Urine Nitrite (Negative) Urine Bilirubin (Negative) Urine Urobilinogen (Normal) mg/dL Ur Leukocyte Esterase (Negative) Urine Microscopic RBC (0-3) per hpf Urine Microscopic WBC (0-3) per hpf Ur Squamous Epith Cells (None-Few) per lpf Urine Bacteria (None-Few) per hpf Hyaline Casts (None-Few) per lpf Urine Yeast (None Seen) per hpf Ur Culture Indicated? (NO) 11/21/18 11/21/18 Range/Units 04:56 05:17 WBC (4.3-11.1) K/mcL RBC (4.19-5.50) M/mcL Hgb (12.9-16.9) g/dL Hct (37.5-50.1) % MCV (83.0-100.0) fL MCH (28.0-33.3) pg MCHC (31.6-35.5) g/dL RDW (11.5-14.5) % Plt Count (140-400) K/mcL MPV (9.4-12.4) fL Immature Gran % (0-4) % Seg Neutrophils % % Lymphocytes % % Monocytes % % Eosinophils % % Basophils % % Neutrophils # (1.6-8.9) K/mcL Lymphocytes # (0.6-4.6) K/mcL Monocytes # (0.0-1.3) K/mcL Eosinophils # (0.0-0.6) K/mcL Basophils # (0.0-0.2) K/mcL ESR (0-10) mm/hr PT (9.4-12.1) Seconds INR VBG pH (7.32-7.42) pH Units VBG pCO2 (41-51) mmHg VBG pO2 (25-50) mmHg VBG HCO3 (21-27) mEq/L Sodium (136-145) mEq/L Potassium (3.5-5.1) mEq/L Chloride (98-107) mEq/L Carbon Dioxide (23-29) mEq/L BUN (8-23) mg/dL Creatinine (0.70-1.30) mg/dL Est GFR ( Amer) (> 60) Est GFR (Non-Af Amer) (> 60) BUN/Creatinine Ratio (6-26) Glucose (70-105) mg/dL POC Glucose 188 H (70-99) mg/dL Calculated Osmolality (280-300) Lactic Acid (0.5-2.2) mmol/L Calcium (8.6-10.3) mg/dL Phosphorus (2.7-4.5) mg/dL Magnesium (1.6-2.6) mg/dL Total Bilirubin (0.3-1.0) mg/dL Direct Bilirubin (0.0-0.2) mg/dL Indirect Bilirubin (0.0-1.2) mg/dL AST (13-39) Units/L ALT (7-52) Units/L Alkaline Phosphatase (34-104) Units/L Troponin I (< 0.04) ng/mL C-Reactive Protein (Less than 10) mg/L Serum Total Protein (6.4-8.9) g/dL Albumin (3.5-5.7) g/dL Globulin (2.4-3.5) g/dL Albumin/Globulin Ratio (1.1-2.2) Lipase (11-82) Units/L Procalcitonin 0.91 H (0.00-0.15) ng/mL Urine Color (Yellow) Urine Clarity (Clear) Urine pH (5.0-8.0) pH Units Ur Specific [place] (1.010-1.025) Urine Protein (Neg-Trace) mg/dL Urine Glucose (UA) (Normal) mg/dL Urine Ketones (Negative) mg/dL Urine Blood (Negative) Urine Nitrite (Negative) Urine Bilirubin (Negative) Urine Urobilinogen (Normal) mg/dL Ur Leukocyte Esterase (Negative) Urine Microscopic RBC (0-3) per hpf Urine Microscopic WBC (0-3) per hpf Ur Squamous Epith Cells (None-Few) per lpf Urine Bacteria (None-Few) per hpf Hyaline Casts (None-Few) per lpf Urine Yeast (None Seen) per hpf Ur Culture Indicated? (NO) Attestation Statement - Attestation Attestation: I examined this patient and my medical decision-making was reviewed with the Resident Physician. I agree with the documented findings, disposition and treatment plan as described except to the extent set forth below. Pt presents with fever and AMS, dialysis patient. Appears ill lying in bed. Not hypotensive. Suspicious of UTI. Work up initiated, empiric antibiotics ordered, pt checked out to Dr. Mancilla at change of shift.
[2018-11-21] MEDS: Cefepime HCl 1,000 MG in Water for inj. (sterile) 10 ML IVP SCH (17:27)
--- NOTE | 2018-11-21 18:48 | Internal Med Progress Note ---
Hospitalist Progress Note - Encounter Date of Encounter: 11/21/18 Time of Encounter: 09:25 - Subjective Interval History: No acute events. Patient complains of bilateral lower exremity pain and would like some pain meds. - Exam Vitals: Temp Pulse Resp BP Pulse Ox 37.3 C 72 16 125/63 99 11/21/18 15:00 11/21/18 15:00 11/21/18 15:00 11/21/18 15:00 11/21/18 15:00 Exam: Gen: Patient is currently alert and oriented. Eyes: anicteric sclerae, moist conjunctivae; no lid-lag; Pupils equal and reactive to light HENT: Atraumatic; oropharynx clear with dry mucous membranes and no mucosal ulcerations; normal hard and soft palate Neck: Trachea midline; supple, no thyromegaly or lymphadenopathy. Cardiac: RRR, no murmur, +S1/S2. Pulmonary: CTA bilaterally, no wheezes, rales or rhonchi, equal chest expansion. Diminished on left Abdomen: soft, nontender, no guarding. No masses or hepatosplenomegaly MSK: ROM intact with slight motion, negative obturator sign, no joint swelling noted. Extremities: no BLE edema, nontender calf, no cyanosis or clubbing Skin: Normal turgor and texture; no rash. Diaphoretic. Bilateral feet are wrapped due to diabetic foot ulcers. I did not unwrap them. There is dressing on sacral decubitus ulcer which I did not undress. Permanent tunneled HD cath in place on right upper chest wall intact. No irritation or erythema surrounding. Neuro: moves all extremities. Cognition intact. Psych: Flat affect - Assessment and Plan (1) Acute metabolic encephalopathy Current Visit: Yes Status: Acute (2) Diabetic foot ulcer Current Visit: Yes Status: Acute (3) ESRD (end stage renal disease) on dialysis Current Visit: Yes Status: Acute (4) Sacral decubitus ulcer Current Visit: Yes Status: Acute (5) Sepsis Current Visit: Yes Status: Acute (6) Diabetes mellitus Current Visit: Yes Status: Chronic - Summary of Assessment and Plan Summary of Assessment and Plan: Mr. Anguiano is a 73 year old male with history of coronary artery disease status post CABG, 9 stents, melanoma, diabetes mellitus, diabetic foot ulcers, sacral decubitus ulcer, ESRD on hemodialysis Sunday and Parkinson's. He was admitted overnight for acute metabolic encephalopathy as well as sepsis. Source of infection believed to be his sacral decubitus ulcer. He has been started on antibiotics and continue to investigate source of infection further. Nephrology on board for management of ESRD. - Time Spent with Patient Total time spent is greater than 50% in coordination of care (as documented) at patient's floor/unit and/or counseling patient: Internal Medicine: Result - Labs CBC & Chem 7: 11/21/18 01:13 11/21/18 01:13 Labs: Short CBC 11/21/18 Range/Units 01:13 WBC 8.1 (4.3-11.1) K/mcL Hgb 9.0 L (12.9-16.9) g/dL Hct 29.0 L (37.5-50.1) % Plt Count 310 (140-400) K/mcL Neutrophils # 6.3 (1.6-8.9) K/mcL BMP 11/21/18 01:13 Sodium 141 Potassium 5.0 Chloride 106 Carbon Dioxide 26 BUN 44 H Creatinine 5.12 H Glucose 229 H Calcium 8.1 L Cardiac Enzymes 11/21/18 Range/Units 01:13 Troponin I < 0.03 (< 0.04) ng/mL Liver Function 11/21/18 Range/Units 01:13 Total Bilirubin 0.3 (0.3-1.0) mg/dL Direct Bilirubin 0.0 (0.0-0.2) mg/dL AST 8 L (13-39) Units/L ALT < 3 L (7-52) Units/L Alkaline Phosphatase 56 (34-104) Units/L Albumin 3.1 L (3.5-5.7) g/dL Urine 11/21/18 Range/Units 00:37 Urine Color Dark Yellow (Yellow) Urine Clarity Cloudy A (Clear) Urine pH 6.0 (5.0-8.0) pH Units Ur Specific [place] 1.021 (1.010-1.025) Urine Protein >=300 H (Neg-Trace) mg/dL Urine Glucose (UA) 250 H (Normal) mg/dL - ABG Interpretation ABG results: PT/INR, D-dimer PT 12.6 Seconds (9.4-12.1) H 11/21/18 01:13 - Impressions Impressions Chest X-Ray 11/20/18 23:21 IMPRESSION: New left basilar atelectasis or pneumonia. D/ / Shree Spears MD / Shree Spears MD Interpreting Provider: Shree Spears MD Head CT 11/21/18 00:00 IMPRESSION: No acute intracranial abnormality. D/ / Shree Spears MD / Shree Spears MD Interpreting Provider: Shree Spears MD Consult Discharge Plan - Plan [facility]errals: [facility] [Primary Care Provider] - (2) Diabetic foot ulcer Qualifiers: Diabetic foot ulcer location: other Diabetes mellitus type: type 2 Laterality: left Non-pressure ulcer stage: with fat layer exposed Qualified Code(s): E11.621 - Type 2 diabetes mellitus with foot ulcer; L97.522 - Non- pressure chronic ulcer of other part of left foot with fat layer exposed (4) Sacral decubitus ulcer Qualifiers: Pressure injury stage: unspecified pressure injury stage Qualified Code(s): L89.159 - Pressure ulcer of sacral region, unspecified stage (5) Sepsis Qualifiers: Sepsis type: sepsis due to unspecified organism Qualified Code(s): A41.9 - Sepsis, unspecified organism (6) Diabetes mellitus Qualifiers: Diabetes mellitus type: type 2 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
[2018-11-21] MEDS: Insulin DETEMIR 100 UNIT/ML X5UNITS SQ SCH (20:30)
[2018-11-22 01:04] LABS: Acinetobacter baumannii by PCR Not Detected (Not Detect); Candida albicans by PCR Not Detected (Not Detect); Candida glabrata by PCR Not Detected (Not Detect); Candida krusei by PCR Not Detected (Not Detect); Candida parapsilosis by PCR Not Detected (Not Detect); Candida tropicalis by PCR Not Detected (Not Detect); Enterobacter cloacae Cmplx PCR Not Detected (Not Detect); Enterobacteriaceae by PCR Not Detected (Not Detect); Enterococcus by PCR Not Detected (Not Detect); Escherichia coli by PCR Not Detected (Not Detect); Klebsiella oxytoca by PCR Not Detected (Not Detect); Klebsiella pneumoniae by PCR Not Detected (Not Detect); Proteus by PCR Not Detected (Not Detect); Pseudomonas aeruginosa by PCR Not Detected (Not Detect); Serratia marcescens by PCR Not Detected (Not Detect); Staphylococcus aureus by PCR Not Detected (Not Detect); Staphylococcus by PCR DETECTED (Not Detect); Streptococcus agalactiae(B)PCR Not Detected (Not Detect); Streptococcus by PCR Not Detected (Not Detect); Streptococcus pneumoniae PCR Not Detected (Not Detect); Streptococcus pyogenes (A) PCR Not Detected (Not Detect); blaKPC Carbapenem-Resist Gene Not Detected (Not Detect); mecA Methicillin-Resist Gene Not Detected (Not Detect); vanA/B Vancomycin-Resist Genes Not Detected (Not Detect)
[2018-11-22] MEDS: MetroNIDAZOLE 500 MG/100 ML 500 MG/100 ML BAG IVPB SCH ×3 (01:54→15:53)
[2018-11-22] MEDS: 0.9 % Sodium Chloride 1,000 ML IVC SCH (01:55)
[2018-11-22] MEDS: *HR* Heparin 5,000 UNIT/ML VIAL SQ SCH ×3 (05:22→22:43)
[2018-11-22 05:35] LABS: Hematocrit 27.6 % (37.5-50.1); Hemoglobin 8.5 g/dL (12.9-16.9); Mean Corpuscular HGB Conc 30.8 g/dL (31.6-35.5); Mean Corpuscular Hemoglobin 32.6 pg (28.0-33.3); Mean Corpuscular Volume 105.7 fL (83.0-100.0); Mean Platelet Volume 10.3 fL (9.4-12.4); Platelet Count 311 K/mcL (140-400); Red Blood Count 2.61 M/mcL (4.19-5.50); Red Cell Distribution Width 13.6 % (11.5-14.5); White Blood Count 5.5 K/mcL (4.3-11.1)
[2018-11-22 05:52] LABS: Potassium 4.6 mEq/L (3.5-5.1)
[2018-11-22] MEDS: Calcium Acetate 667 MG CAPSULE PO SCH ×3 (08:54→17:24)
[2018-11-22] MEDS: carBAMazepine 200 MG TABLET PO SCH ×3 (08:55→22:41)
[2018-11-22] MEDS: Aspirin Enteric Coated 81 MG Tablet PO SCH (08:55)
[2018-11-22] MEDS: Metoprolol XL (24 HR) Succ 25 MG TAB.ER.24H PO SCH (08:56)
[2018-11-22] MEDS: Finasteride 5 MG TABLET PO SCH (08:56)
[2018-11-22] MEDS: Carbidopa/Levodopa 25/100 TABLET PO SCH ×3 (08:56→22:42)
[2018-11-22] MEDS: Rivastigmine Patch 9.5 MG PATCH.TD24 TD SCH (08:57)
[2018-11-22] MEDS: Insulin LISPRO 300 UNITS/3 ML VIAL SQ SCH ×4 (08:58→22:24)
[2018-11-22] MEDS ORDERED: Heparin 1,000 UNITS/500 mL 0 ML ONE ×2 (09:06→11:35)
--- NOTE | 2018-11-22 09:15 | Nephrology Progress Note ---
Date of Encounter: 11/22/18 Time of Encounter: 08:15 - Assessment and Plan (1) ESRD (end stage renal disease) on dialysis Current Visit: Yes Status: Chronic End-stage renal disease on thrice weekly hemodialysis: I reviewed the patient's labs, vital signs, progress notes, imaging and medication lists, which required complex evaluation and management and medical decision making and I will plan for his next dialysis to occur on Sunday (he is typically TTS). For patients with end-stage renal disease, as always, I recommend following strict I's and O's, daily weights, renal diet, avoidance of nephrotoxic agents, renal dosing. (2) Anemia Current Visit: Yes Status: Chronic Hgb is roughly stable. Transfusion parameters as per primary team. Qualifiers: Anemia type: unspecified type Qualified Code(s): D64.9 - Anemia, uns pecified (3) Altered mental status Current Visit: Yes Status: Acute Qualifiers: Altered mental status type: unspecified Qualified Code(s): R41.82 - Altered mental status, unspecified (4) Chronic indwelling Leal catheter Current Visit: Yes Status: Acute Subjective Principal diagnosis: ESRD Interval history: The patient was seen and examined earlier today. He reported still having some fatigue with occasional nausea, but no active vomiting or diarrhea. He said he completed dialysis yesterday. I reviewed the handoff notes from my colleague Dr. Goldberg. Objective - Vital Signs Vital signs: Vital Signs Temp Pulse Resp BP Pulse Ox 11/22/18 08:20 98.3 F 72 17 107/62 95 11/22/18 02:43 98.9 F 73 20 137/74 93 11/21/18 23:15 97.7 F 73 20 145/67 97 11/21/18 18:46 98.1 F 70 20 126/68 98 11/21/18 15:00 99.2 F 72 16 125/63 99 11/21/18 13:02 98.6 F 18 134/50 11/21/18 12:45 120/61 11/21/18 12:30 110/78 11/21/18 12:15 118/67 11/21/18 12:00 120/49 11/21/18 11:45 112/60 11/21/18 11:30 103/64 11/21/18 10:30 115/39 11/21/18 10:15 105/54 11/21/18 10:00 99/49 11/21/18 09:45 92/48 11/21/18 09:30 101/31 11/21/18 09:15 131/103 Intake and Output 11/21/18 11/22/18 11/22/18 23:59 07:59 15:59 Intake Total 1200 / 2830 100 / 100 Balance 1200 / -430 100 / 100 Intake: IV Fluids 1110 / 2140 100 / 100 0.9 % Sodium Chloride 1,000 ML 1000 / 1000 @ 75 mls/hr IVC .[id number] [facility] Rx #:[id number] Maxipime 1,000 MG In Water for inj. (sterile) 10 ML @ 300 mls/ hr IVP Q24H [facility] Rx#:[id number] Flagyl Premix 500 MG/100 ML 500 100 / 100 100 / 100 mg In 100 ml @ 100 mls/hr IVPB Q8HR [facility] Rx#:[id number] Oral 90 / 90 Other: Stool Size Large Stool Consistency formed # Bowel Movement Diapers 1 Weight 90.5 kg Blood Glucose* 153 188 Patient Weight 11/22/18 23:59 Weight 90.5 kg - General Appearance General appearance: Present: appears started age, chronically ill, fatigue, frail EENT: Present: ATNC, PERRL, mucous membranes dry Neck: Present: no JVD, supple Respiratory: Present: clear Cardiology: Present: edema (of the hands bilaterally), regular rate, regular rhythm, normal S1, normal S2 Dialysis Vascular Access: Venous Catheter (Right sided Tunneled dialysis catheter with normal appearing exit site) Gastrointestinal: Present: normoactive bowel sounds, no tenderness, no guarding Additional Comments: right ankle was dressed well Neurologic: Present: no asterixis, alert and oriented x3 Musculoskeletal: Present: no cyanosis, no clubbing Psychiatric: Present: cooperative - Lab 11/22/18 03:44 11/22/18 03:44 Most recent lab results 11/22/18 03:44 Calcium 8.0 L Consult Discharge Plan - Plan Referrals: [facility] [Primary Care Provider] -
--- NOTE | 2018-11-22 09:54 | Internal Med Progress Note ---
Hospitalist Progress Note - Encounter Date of Encounter: 11/22/18 Time of Encounter: 09:55 - Subjective Interval History: No acute events. Patient has no new complaints and states that he feels much better. - Exam Vitals: Temp Pulse Resp BP Pulse Ox 36.8 C 72 17 107/62 95 11/22/18 08:20 11/22/18 08:20 11/22/18 08:20 11/22/18 08:20 11/22/18 08:20 Exam: Gen: Patient is currently alert and oriented. Eyes: anicteric sclerae, moist conjunctivae; no lid-lag; Pupils equal and reactive to light HENT: Atraumatic; oropharynx clear with dry mucous membranes and no mucosal ulcerations; normal hard and soft palate Neck: Trachea midline; supple, no thyromegaly or lymphadenopathy. Cardiac: RRR, no murmur, +S1/S2. Pulmonary: CTA bilaterally, no wheezes, rales or rhonchi, equal chest expansion. Diminished on left Abdomen: soft, nontender, no guarding. No masses or hepatosplenomegaly MSK: ROM intact with slight motion, negative obturator sign, no joint swelling noted. Extremities: no BLE edema, nontender calf, no cyanosis or clubbing Skin: Bloody permacath dressing, sacral decubitus ulcer. Clean dressing on both feet. Neuro: moves all extremities. Cognition intact. Psych: Flat affect - Assessment and Plan (1) Acute metabolic encephalopathy Current Visit: Yes Status: Acute (2) Diabetic foot ulcer Current Visit: Yes Status: Acute (3) ESRD (end stage renal disease) on dialysis Current Visit: Yes Status: Chronic (4) Sacral decubitus ulcer Current Visit: Yes Status: Acute (5) Sepsis Current Visit: Yes Status: Acute (6) Diabetes mellitus Current Visit: Yes Status: Chronic - Summary of Assessment and Plan Summary of Assessment and Plan: Mr. Anguiano is a 73 year old male with history of coronary artery disease status post CABG, 9 stents, melanoma, diabetes mellitus, diabetic foot ulcers, sacral decubitus ulcer, ESRD on hemodialysis Sunday and Parkinson's. He was admitted overnight for acute metabolic encephalopathy as well as sepsis. Source of infection believed to be his sacral decubitus ulcer. He has been started on antibiotics and continue to investigate source of infection further. Nephrology on board for management of ESRD. Sepsis, unknown etiology - Patient met SIRS criteria on admission - Currently has normal vitals - WBC normal - Gram positive cocci seen on blood culture - Will continue antibiotics Acute Metabolic Encephalopathy, - Patient is now currently at his baseline mental status - He is alert and oriented x3 Hx of Urinary Retention and Indwelling Leal - Patient had an episode of acute urinary retention about 3 days prior tp admission which prompted placement of catheter Sacral Decubitus Ulcer - Wound care CAD s/p CABGx4 + 9 stents Continue ASA, plavix, ALINE, statin, BB DM2, insulin dependent Will use basal levemir and SSI Accuchecks DM foot ulcer on b/l feet Feet in clean dressing. WOund care ESRD on HD TTS Nephrology managing HFrEF Echo 09/22 showed LVEF 35% with severe global LV systolic dysfunction and mild diastolic dysfunction Currenty has no signs or symptoms of an exacerbation. - Time Spent with Patient Total time spent is greater than 50% in coordination of care (as documented) at patient's floor/unit and/or counseling patient: Internal Medicine: Result - Labs CBC & Chem 7: 11/22/18 03:44 11/22/18 03:44 Labs: Short CBC 11/22/18 Range/Units 03:44 WBC 5.5 (4.3-11.1) K/mcL Hgb 8.5 L (12.9-16.9) g/dL Hct 27.6 L (37.5-50.1) % Plt Count 311 (140-400) K/mcL BMP 11/22/18 03:44 Sodium 139 Potassium 4.6 Chloride 105 Carbon Dioxide 23 BUN 33 H Creatinine 4.24 H Glucose 175 H Calcium 8.0 L - ABG Interpretation ABG results: PT/INR, D-dimer PT 12.6 Seconds (9.4-12.1) H 11/21/18 01:13 Consult Discharge Plan - Plan [facility]errals: [facility] [Primary Care Provider] - (2) Diabetic foot ulcer Qualifiers: Diabetic foot ulcer location: other Diabetes mellitus type: type 2 Laterality: left Non-pressure ulcer stage: with fat layer exposed Qualified Code(s): E11.621 - Type 2 diabetes mellitus with foot ulcer; L97.522 - Non- pressure chronic ulcer of other part of left foot with fat layer exposed (4) Sacral decubitus ulcer Qualifiers: Pressure injury stage: unspecified pressure injury stage Qualified Code(s): L89.159 - Pressure ulcer of sacral region, unspecified stage (5) Sepsis Qualifiers: Sepsis type: sepsis due to unspecified organism Qualified Code(s): A41.9 - Sepsis, unspecified organism (6) Diabetes mellitus Qualifiers: Diabetes mellitus type: type 2 Diabetes mellitus prison insulin use: with prison use Diabetes mellitus complication status: with kidney complications Diabetes mellitus complication detail: with chronic kidney disease Chronic kidney disease stage: unspecified stage Qualified Code(s): E11.22 - Type 2 diabetes mellitus with diabetic chronic kidney disease; Z79.4 - FDC (current) use of insulin
[2018-11-22] MEDS ORDERED: Heparin 1,000 UNITS/500 mL 500 ML ONE (11:36)
[2018-11-22] MEDS ORDERED: *HR* Heparin 5,000 UNIT/ML VIAL ONE (11:54)
--- NOTE | 2018-11-22 12:13 | IR Procedure Note ---
Date of procedure: 11/22/18 Consent Obtained: Written consent Timeout: Correct patient and procedure verified, Correct site verified, Time out performed, Skin prep completed Local anesthetic: Lidocaine 1% Was there an facilities maintenance assistant present: No Estimated blood loss (cc): 1 Complications: None; Tolerated procedure well Indications: malfunctioning permacath Procedure Performed: permacath exchange Site/Technique: over a wire permacath exchanged Results/Findings (any specimens removed): adequate position of the permacath Post Procedure Treatment Plan: OK to use Specimen: none
[2018-11-22] MEDS: Cefepime HCl 1,000 MG in Water for inj. (sterile) 10 ML IVP SCH (17:24)
[2018-11-22] MEDS: Insulin DETEMIR 100 UNIT/ML X5UNITS SQ SCH (22:42)
--- NOTE | 2018-11-23 00:04 | Electrocardiograph Report ---
[facility] Test Date: 2018-11-20 Pat Name: Alexander Anguiano Department: EXAM8 Room: 2A15 Gender: M Destaticizer Feeder: : 1945 Requested By: Paco Toth Order Number: [id number] Reading MD: Afshin Estevez Measurements Intervals Gilberts Rate: 90 P: -62 NH: 241 QRS: 13 QRSD: 115 T: 32 QT: 350 QTc: 429 Interpretive Statements Sinus or ectopic atrial rhythm Prolonged NH interval Nonspecific intraventricular conduction delay Inferior infarct, old Electronically Signed On 11-23-2018 0:03:17 EDT by Afshin Estevez
[2018-11-23] MEDS: MetroNIDAZOLE 500 MG/100 ML 500 MG/100 ML BAG IVPB SCH ×3 (00:57→15:38)
[2018-11-23 05:36] LABS: Hematocrit 27.5 % (37.5-50.1); Hemoglobin 8.5 g/dL (12.9-16.9); Mean Corpuscular HGB Conc 30.9 g/dL (31.6-35.5); Mean Corpuscular Hemoglobin 32.6 pg (28.0-33.3); Mean Corpuscular Volume 105.4 fL (83.0-100.0); Mean Platelet Volume 9.3 fL (9.4-12.4); Platelet Count 330 K/mcL (140-400); Red Blood Count 2.61 M/mcL (4.19-5.50); Red Cell Distribution Width 13.6 % (11.5-14.5)
[2018-11-23 05:55] LABS: Calcium 8.4 mg/dL (8.6-10.3); Potassium 4.2 mEq/L (3.5-5.1)
[2018-11-23] MEDS: *HR* Heparin 5,000 UNIT/ML VIAL SQ SCH ×3 (06:58→21:34)
[2018-11-23] MEDS ORDERED: 0.9 % Sodium Chloride 250 ML IVC PRN (08:15)
[2018-11-23] MEDS: Rivastigmine Patch 9.5 MG PATCH.TD24 TD SCH (08:20)
[2018-11-23] MEDS: Metoprolol XL (24 HR) Succ 25 MG TAB.ER.24H PO SCH (08:21)
[2018-11-23] MEDS: Calcium Acetate 667 MG CAPSULE PO SCH ×3 (08:21→17:53)
[2018-11-23] MEDS: carBAMazepine 200 MG TABLET PO SCH ×3 (08:21→21:34)
[2018-11-23] MEDS: Carbidopa/Levodopa 25/100 TABLET PO SCH ×3 (08:21→21:34)
[2018-11-23] MEDS: Finasteride 5 MG TABLET PO SCH (08:21)
[2018-11-23] MEDS: Aspirin Enteric Coated 81 MG Tablet PO SCH (08:21)
[2018-11-23] MEDS: Insulin LISPRO 300 UNITS/3 ML VIAL SQ SCH ×4 (08:22→21:34)
--- NOTE | 2018-11-23 09:40 | Internal Med Progress Note ---
Hospitalist Progress Note - Encounter Date of Encounter: 11/23/18 Time of Encounter: 09:40 - Subjective Interval History: No acute events. Spoke to patient's at bedside. History obtained is that patient's altered mental status has actually been like this for 6 months. He was diagnosed with Parkinson's 6 months ago. He had 2 strokes in the month of September both of which resulted in residual weakness. She has not noticed any marked changes in his baseline mental status in these last few days. - Exam Vitals: Temp Pulse Resp BP Pulse Ox 36.7 C 68 16 172/73 99 11/23/18 06:40 11/23/18 06:40 11/23/18 06:40 11/23/18 06:40 11/23/18 08:31 Exam: Gen: Patient is currently alert and oriented. Eyes: anicteric sclerae, moist conjunctivae; no lid-lag; Pupils equal and reactive to light HENT: Atraumatic; oropharynx clear with dry mucous membranes and no mucosal ulcerations; normal hard and soft palate Neck: Trachea midline; supple, no thyromegaly or lymphadenopathy. Cardiac: RRR, no murmur, +S1/S2. Pulmonary: CTA bilaterally, no wheezes, rales or rhonchi, equal chest expansion. Diminished on left Abdomen: soft, nontender, no guarding. No masses or hepatosplenomegaly Extremities: no BLE edema, nontender calf, no cyanosis or clubbing Skin: Stage 1 Sacral decubitus ulcer Neuro: Has mild tremors in left hand. Rigidity noted in all muscle groups. . Psych: Flat affect - Assessment and Plan (1) Vascular dementia Current Visit: Yes Status: Chronic Assessment and Plan: Patient has a history of coronary artery disease status post CABG in 2 strokes. Family has noticed a gradual decline in some mental capacity in the last 6 months He has residual weakness from his strokes He has emotional lability and sometimes just cries Will continue aspirin and statin (2) Parkinson's disease dementia Current Visit: Yes Status: Chronic Assessment and Plan: Patient was diagnosed with Parkinson's by his neurologist 6 months ago Tremors are failry controlled He is currently on Rivastigmine (3) Diabetic foot ulcer Current Visit: Yes Status: Acute Assessment and Plan: Will consult podiatry to assess foot as possible source of infection Continue IV antibiotics. (4) ESRD (end stage renal disease) on dialysis Current Visit: Yes Status: Chronic Assessment and Plan: Patient due for HD today Nephrology following. (5) Sacral decubitus ulcer Current Visit: Yes Status: Chronic Assessment and Plan: Patient has a stage I sacral decubitus ulcer No evidence of infection (6) Sepsis Current Visit: Yes Status: Acute Assessment and Plan: Possible source,diabetic foot ulcer bilaterally No leukocytosis Vitals are stable Continue vancomycin and Zosyn (7) Diabetes mellitus Current Visit: Yes Status: Chronic Assessment and Plan: Accu-Cheks Insulin sliding scale Continue home regimen of insulin - Time Spent with Patient Total time spent is greater than 50% in coordination of care (as documented) at patient's floor/unit and/or counseling patient: Internal Medicine: Result - Labs CBC & Chem 7: 11/23/18 05:26 11/23/18 05:26 Labs: Short CBC 11/23/18 Range/Units 05:26 WBC 5.0 (4.3-11.1) K/mcL Hgb 8.5 L (12.9-16.9) g/dL Hct 27.5 L (37.5-50.1) % Plt Count 330 (140-400) K/mcL BMP 11/23/18 05:26 Sodium 143 Potassium 4.2 Chloride 109 H Carbon Dioxide 25 BUN 40 H Creatinine 4.97 H Glucose 105 Calcium 8.4 L - ABG Interpretation ABG results: PT/INR, D-dimer PT 12.6 Seconds (9.4-12.1) H 11/21/18 01:13 - Impressions Impressions Catheter Change 11/22/18 00:00 IMPRESSION: Successful exchange of a tunneled dialysis catheter. Chest x-ray demonstrated good position of the replaced catheter. D/ / 11/22/2018 12:14:45 Padmini Rosales MD / [facility] Interpreting Provider: Padmini Rosales MD Chest X-Ray 11/22/18 11:52 IMPRESSION: 1. Right-sided dual-lumen central venous catheter tip is at the level of the right atrium. No pneumothorax identified. 2. Bibasilar linear opacities favored to reflect atelectasis. D/ / Yordy Lo MD / Yordy Lo MD Interpreting Provider: Yordy Lo MD Consult Discharge Plan - Plan Referrals: [facility] [Primary Care Provider] - (1) Vascular dementia Qualifiers: Dementia behavioral disturbance: with behavioral disturbance Qualified Code(s): F01.51 - Vascular dementia with behavioral disturbance (2) Parkinson's disease dementia Qualifiers: Dementia behavioral disturbance: with behavioral disturbance Qualified Code(s): G20 - Parkinson's disease; F02.81 - Dementia in other diseases classified elsewhere with behavioral disturbance (3) Diabetic foot ulcer Qualifiers: Diabetic foot ulcer location: other Diabetes mellitus type: type 2 Laterality: left Non-pressure ulcer stage: with fat layer exposed Qualified Code(s): E11.621 - Type 2 diabetes mellitus with foot ulcer; L97.522 - Non- pressure chronic ulcer of other part of left foot with fat layer exposed (5) Sacral decubitus ulcer Qualifiers: Pressure injury stage: stage 1 Qualified Code(s): L89.151 - Pressure ulcer of sacral region, stage 1 (6) Sepsis Qualifiers: Sepsis type: sepsis due to unspecified organism Qualified Code(s): A41.9 - Se psis, unspecified organism (7) Diabetes mellitus Qualifiers: Diabetes mellitus type: type 2 Diabetes mellitus long-term insulin use: with long-term use Diabetes mellitus complication status: with kidney complications Diabetes mellitus complication detail: with chronic kidney disease Chronic kidney disease stage: unspecified stage Qualified Code(s): E11.22 - Type 2 diabetes mellitus with diabetic chronic kidney disease; Z79.4 - USP (current) use of insulin
--- NOTE | 2018-11-23 10:11 | Nephrology Progress Note ---
Date of Encounter: 11/23/18 Time of Encounter: 09:15 - Assessment and Plan (1) ESRD (end stage renal disease) on dialysis Current Visit: Yes Status: Chronic He is due for dialysis today, and given that he has known ESRD on HD every TTS: I reviewed the patient's labs, vital signs, progress notes, imaging and medication lists, which required complex evaluation and management and medical decision making to compose the patient's dialysis orders. I also placed dialysis orders 3, so if he remains in the hospital on next Sunday and , his next dialysis orders are already in place. For patients with end-stage renal disease, as always, I recommend following strict I's and O's, daily weights, renal diet, avoidance of nephrotoxic agents, renal dosing. (2) Anemia Current Visit: Yes Status: Chronic Goal hemoglobin is 10-11. We will monitor Transfusion parameters as per primary team. Qualifiers: Anemia type: unspecified type Qualified Code(s): D64.9 - Anemia, unspecified (3) Altered mental status Current Visit: Yes Status: Acute Per primary. Qualifiers: Altered mental status type: unspecified Qualified Code(s): R41.82 - Altered mental status, unspecified (4) Chronic indwelling Leal catheter Current Visit: Yes Status: Acute Per primary. Subjective Principal diagnosis: ESRD Interval history: The patient was seen and examined earlier today. He reported feeling about the same, in voiced agreement to proceed with dialysis today, which is his typical day on Sunday//Sunday. He did not affirm chest pain, Objective - Vital Signs Vital signs: Vital Signs Temp Pulse Resp BP Pulse Ox 11/23/18 08:31 99 11/23/18 06:40 98.0 F 68 16 172/73 99 11/23/18 05:01 98.9 F 70 16 171/52 93 11/22/18 23:47 99.0 F 72 16 177/77 98 11/22/18 19:30 99.6 F 75 16 171/75 97 11/22/18 15:37 99.2 F 73 16 136/74 97 11/22/18 10:54 98.2 F 73 17 195/69 98 Intake and Output 11/22/18 11/23/18 11/23/18 23:59 07:59 15:59 Intake Total 100 / 300 150 / 150 Balance 100 / 300 150 / 150 Intake: IV Fluids 100 / 300 100 / 100 Flagyl Premix 500 MG/100 ML 500 100 / 300 100 / 100 mg In 100 ml @ 100 mls/hr IVPB Q8HR [facility] Rx#:[id number] Oral 50 / 50 Other: Meal Breakfast Percent of Meal Consumed 5% Weight 91.2 kg Blood Glucose* 138 94 Patient Weight 11/23/18 23:59 Weight 91.2 kg - General Appearance Exam: General appearance: Present: appears started age, chronically ill, fatigue, frail EENT: Present: ATNC, PERRL, mucous membranes dry Neck: Present: no JVD, supple Respiratory: Present: clear Cardiology: Present: edema (of the hands bilaterally), regular rate, regular rhy thm, normal S1, normal S2 Dialysis Vascular Access: Venous Catheter (Right sided Tunneled dialysis catheter with normal appearing exit site) Gastrointestinal: Present: normoactive bowel sounds, no tenderness, no guarding Additional Comments: right ankle was dressed well Neurologic: Present: no asterixis, alert and oriented x3, generalized weakness Musculoskeletal: Present: no cyanosis, no clubbing Psychiatric: Present: cooperative - Lab 11/23/18 05:26 11/23/18 05:26 Most recent lab results 11/23/18 05:26 Calcium 8.4 L Consult Discharge Plan - Plan Referrals: [facility] [Primary Care Provider] -
[2018-11-23] MEDS: Cefepime HCl 1,000 MG in Water for inj. (sterile) 10 ML IVP SCH (17:52)
[2018-11-23] MEDS: Insulin DETEMIR 100 UNIT/ML X5UNITS SQ SCH (21:35)
[2018-11-24] MEDS: MetroNIDAZOLE 500 MG/100 ML 500 MG/100 ML BAG IVPB SCH ×2 (01:16→08:30)
[2018-11-24 02:21] LABS: Hematocrit 28.6 % (37.5-50.1); Mean Corpuscular HGB Conc 31.5 g/dL (31.6-35.5); Mean Corpuscular Hemoglobin 32.3 pg (28.0-33.3); Mean Corpuscular Volume 102.5 fL (83.0-100.0); Mean Platelet Volume 9.5 fL (9.4-12.4); Platelet Count 361 K/mcL (140-400); Red Blood Count 2.79 M/mcL (4.19-5.50); Red Cell Distribution Width 13.3 % (11.5-14.5); White Blood Count 5.2 K/mcL (4.3-11.1)
[2018-11-24 02:39] LABS: Calcium 8.4 mg/dL (8.6-10.3); Potassium 4.2 mEq/L (3.5-5.1)
[2018-11-24] MEDS: *HR* Heparin 5,000 UNIT/ML VIAL SQ SCH ×3 (04:05→20:20)
[2018-11-24] MEDS: carBAMazepine 200 MG TABLET PO SCH ×3 (08:29→20:19)
[2018-11-24] MEDS: Metoprolol XL (24 HR) Succ 25 MG TAB.ER.24H PO SCH (08:29)
[2018-11-24] MEDS: Calcium Acetate 667 MG CAPSULE PO SCH ×3 (08:29→17:21)
[2018-11-24] MEDS: Finasteride 5 MG TABLET PO SCH (08:29)
[2018-11-24] MEDS: Carbidopa/Levodopa 25/100 TABLET PO SCH ×3 (08:29→20:19)
[2018-11-24] MEDS: Aspirin Enteric Coated 81 MG Tablet PO SCH (08:29)
[2018-11-24] MEDS: Rivastigmine Patch 9.5 MG PATCH.TD24 TD SCH (08:29)
[2018-11-24] MEDS: Insulin LISPRO 300 UNITS/3 ML VIAL SQ SCH ×4 (08:30→20:19)
[2018-11-24] MEDS: D5% in Water 1,000 ML IVC PRN (09:21)
[2018-11-24] MEDS ORDERED: Aminoglycoside Consult 1 EACH MC ONE (09:54)
[2018-11-24] MEDS: Ondansetron 4 MG/2 ML VIAL IVP PRN ×2 (13:07→19:34)
--- NOTE | 2018-11-24 14:17 | Internal Med Progress Note ---
Hospitalist Progress Note - Encounter Date of Encounter: 11/24/18 Time of Encounter: 08:35 - Subjective Interval History: No acute events. Patient sems lethargic. His blood glucose is 62 this moning but he refuses to eat or drink. - Exam Vitals: Temp Pulse Resp BP Pulse Ox 36.6 C 76 16 165/90 94 11/24/18 10:55 11/24/18 10:55 11/24/18 10:55 11/24/18 10:55 11/24/18 10:55 Exam: Gen: Patient is currently lethargic but alert and oriented. Eyes: anicteric sclerae, moist conjunctivae; no lid-lag; Pupils equal and reactive to light HENT: Atraumatic; oropharynx clear with dry mucous membranes and no mucosal ulcerations; normal hard and soft palate Neck: Trachea midline; supple, no thyromegaly or lymphadenopathy. Cardiac: RRR, no murmur, +S1/S2. Pulmonary: CTA bilaterally, no wheezes, rales or rhonchi, equal chest expansion. Diminished on left Abdomen: soft, nontender, no guarding. No masses or hepatosplenomegaly Extremities: no BLE edema, nontender calf, no cyanosis or clubbing Skin: Stage 1 Sacral decubitus ulcer Neuro: Has mild tremors in left hand. Rigidity noted in all muscle groups. . Psych: Flat affect - Assessment and Plan (1) Sepsis Current Visit: Yes Status: Acute Assessment and Plan: blood culture positive for Staphylococcus walneri which is almost pansensitive to all tested antibiotics. Possible source,diabetic foot ulcer bilaterally No leukocytosis Vitals are stable Stop vanc and zosyn and place on PO bactrim. (2) Vascular dementia Current Visit: Yes Status: Chronic Assessment and Plan: Patient has a history of coronary artery disease status post CABG in 2 strokes. Family has noticed a gradual decline in some mental capacity in the last 6 months He has residual weakness from his strokes He has emotional lability and sometimes just cries Will continue aspirin and statin (3) Parkinson's disease dementia Current Visit: Yes Status: Chronic Assessment and Plan: Patient was diagnosed with Parkinson's by his neurologist 6 months ago Tremors are failry controlled He is currently on Rivastigmine (4) Diabetic foot ulcer Current Visit: Yes Status: Acute Assessment and Plan: Awaiting review by podiatry. Continue IV antibiotics. (5) ESRD (end stage renal disease) on dialysis Current Visit: Yes Status: Chronic Assessment and Plan: Patient had dialysis yesterday Nephrology following. (6) Sacral decubitus ulcer Current Visit: Yes Status: Chronic Assessment and Plan: Patient has a stage I sacral decubitus ulcer No evidence of infection (7) Diabetes mellitus Current Visit: Yes Status: Chronic Assessment and Plan: Accu-Cheks Insulin sliding scale Continue home regimen of insulin DVT Prophylaxis: SQ Heparin - Summary of Assessment and Plan Summary of Assessment and Plan: Mr. Anguiano is a 73 year old male with history of 2 Strokes in September 2018, Coronary Artery Disease status post CABG, 9 stents, Melanoma, Diabetes Mellitus, Diabetic Foot Ulcers, Stage 1, Sacral Decubitus Ulcer, ESRD on hemodialysis Sunday and Parkinson's. He was admitted overnight for acute metabolic encephalopathy as well as sepsis. Further hx from patient's family revealed that the change in mental status is actually chronic and has been going on for 6 months. Blood cultures however positive for Staph walneri that is almost p ansensitive to all yesyed antibiotics. Plan is to DC home with [facility]. - Time Spent with Patient Total time spent is greater than 50% in coordination of care (as documented) at patient's floor/unit and/or counseling patient: Internal Medicine: Result - Labs CBC & Chem 7: 11/24/18 02:02 11/24/18 02:02 Labs: Short CBC 11/24/18 Range/Units 02:02 WBC 5.2 (4.3-11.1) K/mcL Hgb 9.0 L (12.9-16.9) g/dL Hct 28.6 L (37.5-50.1) % Plt Count 361 (140-400) K/mcL BMP 11/24/18 02:02 Sodium 138 Potassium 4.2 Chloride 102 Carbon Dioxide 27 BUN 22 Creatinine 3.32 H Glucose 81 Calcium 8.4 L - ABG Interpretation ABG results: PT/INR, D-dimer PT 12.6 Seconds (9.4-12.1) H 11/21/18 01:13 Consult Discharge Plan - Plan Referrals: [facility] [Primary Care Provider] - (1) Sepsis Qualifiers: Sepsis type: sepsis due to unspecified organism Qualified Code(s): A41.9 - Sepsis, unspecified organism (2) Vascular dementia Qualifiers: Dementia behavioral disturbance: with behavioral disturbance Qualified Code(s): F01.51 - Vascular dementia with behavioral disturbance (3) Parkinson's disease dementia Qualifiers: Dementia behavioral disturbance: with behavioral disturbance Qualified Code(s): G20 - Parkinson's disease; F02.81 - Dementia in other diseases class ified elsewhere with behavioral disturbance (4) Diabetic foot ulcer Qualifiers: Diabetic foot ulcer location: other Diabetes mellitus type: type 2 Laterality: left Non-pressure ulcer stage: with fat layer exposed Qualified Code(s): E11.621 - Type 2 diabetes mellitus with foot ulcer; L97.522 - Non- pressure chronic ulcer of other part of left foot with fat layer exposed (6) Sacral decubitus ulcer Qualifiers: Pressure injury stage: stage 1 Qualified Code(s): L89.151 - Pressure ulcer of sacral region, stage 1 (7) Diabetes mellitus Qualifiers: Diabetes mellitus type: type 2 Diabetes mellitus assisted insulin use: with long term care administrator use Diabetes mellitus complication status: with kidney complications Diabetes mellitus complication detail: with chronic kidney disease Chronic kidney disease stage: unspecified stage Qualified Code(s): E11.22 - Type 2 diabetes mellitus with diabetic chronic kidney disease; Z79.4 - ferry terminal agent (current) use of insulin
[2018-11-24] MEDS: Cefepime HCl 1,000 MG in Water for inj. (sterile) 10 ML IVP SCH (17:21)
[2018-11-24] MEDS ORDERED: *HR* Promethazine 25 MG/ML VIAL IVP ONE (19:49)
[2018-11-24] MEDS ORDERED: Acetaminophen IV 500 MG/50 ML INFUS..BTL IVPB ONE (19:51)
[2018-11-24] MEDS: Sulfamethoxazole/Trimeth SS 1 TAB PO SCH (20:17)
[2018-11-24] MEDS: Insulin DETEMIR 100 UNIT/ML X5UNITS SQ SCH (20:19)
[2018-11-25] MEDS: *HR* Heparin 5,000 UNIT/ML VIAL SQ SCH ×3 (05:04→21:17)
[2018-11-25 05:22] LABS: Hematocrit 28.2 % (37.5-50.1); Hemoglobin 9.1 g/dL (12.9-16.9); Mean Corpuscular HGB Conc 32.3 g/dL (31.6-35.5); Mean Corpuscular Hemoglobin 32.6 pg (28.0-33.3); Mean Corpuscular Volume 101.1 fL (83.0-100.0); Mean Platelet Volume 9.6 fL (9.4-12.4); Platelet Count 340 K/mcL (140-400); Red Blood Count 2.79 M/mcL (4.19-5.50); Red Cell Distribution Width 13.1 % (11.5-14.5); White Blood Count 5.6 K/mcL (4.3-11.1)
[2018-11-25] MEDS: D5% in Water 1,000 ML IVC PRN (05:29)
[2018-11-25] MEDS: Insulin LISPRO 300 UNITS/3 ML VIAL SQ SCH ×4 (08:09→21:17)
[2018-11-25] MEDS: Calcium Acetate 667 MG CAPSULE PO SCH ×3 (08:09→16:04)
[2018-11-25] MEDS: Metoprolol XL (24 HR) Succ 25 MG TAB.ER.24H PO SCH (08:10)
[2018-11-25] MEDS: Rivastigmine Patch 9.5 MG PATCH.TD24 TD SCH (08:10)
[2018-11-25] MEDS: carBAMazepine 200 MG TABLET PO SCH ×3 (08:11→21:16)
[2018-11-25] MEDS: Aspirin Enteric Coated 81 MG Tablet PO SCH (08:11)
[2018-11-25] MEDS: Finasteride 5 MG TABLET PO SCH (08:11)
[2018-11-25] MEDS: Carbidopa/Levodopa 25/100 TABLET PO SCH ×3 (08:11→21:16)
[2018-11-25] MEDS: Sulfamethoxazole/Trimeth SS 1 TAB PO SCH (08:11)
--- NOTE | 2018-11-25 09:09 | Nephrology Progress Note ---
Date of Encounter: 11/25/18 Time of Encounter: 09:06 - Assessment and Plan (1) ESRD (end stage renal disease) on dialysis Current Visit: Yes Status: Chronic Current regimen is TTS at [facility] Plan for HD tomorrow. Renal diet Renal vitamins Strict I/O Avoid nephrotoxins and renal dose all medications. (2) Anemia Current Visit: Yes Status: Chronic Goal hemoglobin is 10-11. We will monitor Transfusion parameters as per primary team. Hemoglobin today is 9.1. Qualifiers: Anemia type: unspecified type Qualified Code(s): D64.9 - Anemia, unspecified (3) Altered mental status Current Visit: Yes Status: Acute Per primary. Qualifiers: Altered mental status type: unspecified Qualified Code(s): R41.82 - Altered mental status, unspecified (4) Chronic indwelling Leal catheter Current Visit: Yes Status: Acute Per primary. Subjective Principal diagnosis: ESRD Interval history: Seen and examined, doing well. Denies chest pain or shortness of breath. Denies nausea, vomiting or diarrhea. Denies any needs at this time. Objective - Vital Signs Vital signs: Vital Signs Temp Pulse Resp BP Pulse Ox 11/25/18 07:07 98.1 F 78 18 190/81 91 11/25/18 04:14 98.5 F 78 17 191/84 93 11/25/18 00:31 97.8 F 78 16 174/71 95 11/24/18 20:20 97.7 F 94 17 194/82 90 11/24/18 15:31 98.3 F 78 16 172/87 93 11/24/18 10:55 97.8 F 76 16 165/90 94 Intake and Output 11/24/18 11/25/18 11/25/18 23:59 07:59 15:59 Intake Total 50 / 410 1000 / 1200 200 / 1200 Balance 50 / -240 1000 / 1200 200 / 1200 Intake: IV Fluids 50 / 260 1000 / 1200 200 / 1200 Dextrose 5% 1,000 ML @ 100 mls/ 1000 / 1200 200 / 1200 hr IVC .Q10H PRN Rx#:[id number] Ofirmev 1,000 mg/100 ml 500 mg 50 / 50 In 50 ml @ 200 mls/hr IVPB ONCE ONE Rx#:[id number] Oral 0 / 150 Other: Meal Dinner Percent of Meal Consumed 5% Weight 89.2 kg Blood Glucose* 194 245 Patient Weight 11/25/18 23:59 Weight 89.2 kg - General Appearance General appearance: Present: well-developed, well-nourished EENT: Present: ATNC, hearing intact, vision intact ( ) Neck: Present: supple Respiratory: Present: clear Cardiology: Present: no edema, normal S1, normal S2 Dialysis Vascular Access: Venous Catheter (Dressing clean dry and intact) Gastrointestinal: Present: normoactive bowel sounds, no tenderness, no guarding Integumentary: Present: no rash, warm and dry Additional Comments: Alert to self, not alert to location or date. Musculoskeletal: Present: no deformities, no erythema Psychiatric: Present: mood/affect appropriate, cooperative - Lab 11/25/18 04:58 11/25/18 04:58 Most recent lab results 11/25/18 04:58 Calcium 8.0 L Consult Discharge Plan - Plan Referrals: [facility] [Primary Care Provider] -
--- NOTE | 2018-11-25 09:27 | Internal Med Progress Note ---
Hospitalist Progress Note - Encounter Date of Encounter: 11/25/18 Time of Encounter: 09:27 - Subjective Interval History: Patient seen and examined this morning at bedside. Patient alert awake oriented 2 but denies any complaints. Has flat affect. Has some nausea and decreased appetite. Denies any chest pain or difficulty breathing. - Exam Vitals: Temp Pulse Resp BP Pulse Ox 98.1 F 78 18 190/81 91 11/25/18 07:07 11/25/18 07:07 11/25/18 07:07 11/25/18 07:07 11/25/18 07:07 Exam: General: In no acute distress. Respiratory exam: CTAB. no accessory muscle use, rales, rhonchi, wheezes Cardiovascular exam: RRR, +S1, +S2. no murmur, gallop, rubs. GI/Abdominal exam: mild abdominal tenderness, Non-distended, normal bowel sounds, soft, no peritoneal signs. Extremities exam: no pedal edema, pulses palpable in b/l lower extremities. no calf tenderness Neurological exam: CN II-XII intact, AO X3, no focal deficits. Skin exam: stage 1 sacral decub and non stageable, unstagable on Rt heel Pysch: flat affect - Assessment and Plan (1) Sepsis Current Visit: Yes Status: Acute (2) Diabetes mellitus Current Visit: Yes Status: Chronic (3) Diabetic foot ulcer Current Visit: Yes Status: Acute (4) Sacral decubitus ulcer Current Visit: Yes Status: Chronic (5) ESRD (end stage renal disease) on dialysis Current Visit: Yes Status: Chronic (6) Parkinson's disease dementia Current Visit: Yes Status: Chronic (7) Vascular dementia Current Visit: Yes Status: Chronic - Summary of Assessment and Plan Summary of Assessment and Plan: Assessment Acute Altered mental status Sepsis- resolved Sacral decubitus ulcer recent stroke Cardiomyopathy chronic indwelling cabrera due to urinary retention recently Chronic CAD Chronic anemia DM Dementia Parkinsonism ESRD Plan - patient with initial concerns of sepsis with fever with possible LLL consolidation. Recent augmentin use. And elevated procalcitonin. Had Blood culture positive for Staph warneri which could be contaminant. - Was on vancomycin and zosyn initially and then cefepime and bactrim. Will stop cefipime. Today is day 5 of antibiotics. c/w bactrim for now. Repeat Blood cultures. - AMS could be related to sepsis vs possible stroke on baseline dementia or worsening parkinsonism. Will obtain MRI as he has EF of 35% and is not on anticoagulation as adviced by neurology on discharge few weeks ago. Was not started as he was at NH. Carotids were unremarkable. Will confirm whether he got any AC with pharmacy and start if not. Will consider neurology consult base on results. - c/w parkinson's medications - HD per nephrology - wound care for sacral decub and heel decub - DC levemir as poor appetite and hypoglycemia. c/w accuchecks and Insulin sliding scaled - Family does not want to take him to NH and wants to take home. - heparin for DVT. - Palliative care consulted per family wish to discuss option for care at home. Internal Medicine: Result - Labs CBC & Chem 7: 11/25/18 04:58 11/25/18 04:58 Labs: Short CBC 11/25/18 Range/Units 04:58 WBC 5.6 (4.3-11.1) K/mcL Hgb 9.1 L (12.9-16.9) g/dL Hct 28.2 L (37.5-50.1) % Plt Count 340 (140-400) K/mcL BMP 11/25/18 04:58 Sodium 133 L Potassium 4.0 Chloride 96 L Carbon Dioxide 25 BUN 31 H Creatinine 4.29 H Glucose 241 H Calcium 8.0 L - ABG Interpretation ABG results: PT/INR, D-dimer PT 12.6 Seconds (9.4-12.1) H 11/21/18 01:13 Consult Discharge Plan - Plan [facility]Primary Care Provider] - (1) Sepsis Qualifiers: Sepsis type: sepsis due to unspecified organism Qualified Code(s): A41.9 - Sepsis, unspecified organism (2) Diabetes mellitus Qualifiers: Diabetes mellitus type: type 2 Diabetes mellitus fci insulin use: with fci use Diabetes mellitus complication status: with kidney complications Diabetes mellitus complication detail: with chronic kidney disease Chronic kidney disease stage: unspecified stage Qualified Code(s): E11.22 - Type 2 diabetes mellitus with diabetic chronic kidney disease; Z79.4 - [facility] (current) use of insulin (3) Diabetic foot ulcer Qualifiers: Diabetic foot ulcer location: other Diabetes mellitus type: type 2 Laterali ty: left Non-pressure ulcer stage: with fat layer exposed Qualified Code(s): E11.621 - Type 2 diabetes mellitus with foot ulcer; L97.522 - Non-pressure chronic ulcer of other part of left foot with fat layer exposed (4) Sacral decubitus ulcer Qualifiers: Pressure injury stage: stage 1 Qualified Code(s): L89.151 - Pressure ulcer of sacral region, stage 1 (6) Parkinson's disease dementia Qualifiers: Dementia behavioral disturbance: with behavioral disturbance Qualified Code(s): G20 - Parkinson's disease; F02.81 - Dementia in other diseases classified elsewhere with behavioral disturbance (7) Vascular dementia Qualifiers: Dementia behavioral disturbance: with behavioral disturbance Qualified Code(s): F01.51 - Vascular dementia with behavioral disturbance
[2018-11-25] MEDS ORDERED: *HR* Labetalol 20 MG/4 ML SYRINGE IVP ONE (11:55)
[2018-11-25] MEDS: Ondansetron 4 MG/2 ML VIAL IVP PRN (12:14)
--- NOTE | 2018-11-25 16:30 | Podiatry Consult Note ---
Date of Encounter: 11/25/18 Time of Encounter: 16:27 Assessment and Plan (1) Diabetic foot ulcer Current visit: Yes Status: Acute Assessment: Right calcaneal DTI WBC 5.6, ESR 84, CRP 108 A1C 9.7 on 11/04/18 Afebrile, low grade temp max 99.6 No erythema, no edema, no lymphangitis noted Plan: Will order XR of right foot to evaluate for OM Local wound care, nursing to change Keep heels elevated at all times, avoid pressure against bed frame Qualifiers: Diabetic foot ulcer location: other Diabetes mellitus type: type 2 Laterality: left Non-pressure ulcer stage: with fat layer exposed Qualified Code(s): E11.621 - Type 2 diabetes mellitus with foot ulcer; L97.522 - Non- pressure chronic ulcer of other part of left foot with fat layer exposed History of Present Illness Chief complaint: Right heel ulcer HPI: Mr. Anguiano is a 73 year old male who presented to the ER on 11/20/18 from ECF with AMS. Patient was last seen by Dr. Mandel on 08/01/17 in wound care center. PMH of CAD s/p CABG, DM, melanoma, DM foot ulcers, ESRD with hemodialysis TTHS, and Parkinson's disease. Patient does not answer or follow any commands and history was obtained via and medical records. Briefly, patient was admitted on 11/20/18 for AMS, slurred speech, and fevers. Patients states that about a month ago they began to notice ulcer to right calcaneous after being in an ECF. States a wound care nurse they know at [facility] instructed them to keep pressure off his heels. Reports wounds to calcaneous have not worsened but have not improved. Again, Mr. Anguiano is a 73 year old male consulted to podiatry on 11/23/18 for right calcaneous ulcer. HGB A1C on 11/04/18 9.7, ESR 84, CRP 108, WBC today 5.6. reports patient has had fevers, nausea, and vomiting. Denies chills or diarrhea. Denies calf pain, chest pain, or shortness of breath. No other questions or c oncerns at this time. Past Med Surg Social Fam HX - Past Medical History Medical history: cancer, CVA, diabetes, dialysis, glaucoma, hyperlipidemia, hypertension, renal disease, other Additional medical history: skin cancer, parkinson Psychiatric history: depression - Past Surgical History Surgical History: angioplasty/stent, cataract, coronary bypass (CABG), orthopedic, other Additional surgical history: left foot surgery, cardiac stents x9, skin cancer removed, back surgery, - Social History Smoking Status: Never smoker Smokeless Tobacco Status: No Alcohol use: none Drug use: none - Family History Father Living Status: Hx Family Cardiac Disorders: Yes Mother Adopted: No Living Status: Hx Family Cardiac Disorders: Yes Hx Family Cancer: Yes (liver cancer) Medications and Allergies Finasteride [Proscar] 5 mg PO DAILY 01/02/17 [History] Fluticasone Propionate Nasal [Flonase] 100 mcg NS DAILY PRN 01/02/17 [History] Nitroglycerin [Nitrostat] 0.4 mg SL Q5MIN PRN 01/02/17 [History] carBAMazepine [Tegretol] 200 mg PO TID 01/02/17 [History] Ergocalciferol (VITAMIN D2) [Vitamin D2] 50,000 units PO MO 10/04/18 [History] Aspirin Enteric Coated [Aspirin EC] 81 mg PO DAILY #60 tablet.dr 10/12/18 [Rx] Atorvastatin Calcium [Lipitor] 80 mg PO HS 10/20/18 [History] Insulin LISPRO [HumaLOG] 0 units SQ TIDWM 10/20/18 [History] Bisacodyl [Dulcolax] 10 mg RC DAILY PRN supp.rect 10/24/18 [Rx] Ipratropium/Albuterol Neb [Duoneb] 3 ml IH [id number] PRN inhsol 10/24/18 [Rx] Sennosides/Docusate Sodium [Senna Plus] 1 each PO DAILY tablet 10/24/18 [Rx] Cyclobenzaprine [Flexeril] 10 mg PO TID PRN 11/04/18 [History] Lactobacillus Acidophilus [Acidophilus] 1 each PO BID 11/04/18 [History] Ondansetron HCl [Zofran] 4 mg PO Q8HR PRN 11/04/18 [History] Clopidogrel [Plavix] 75 mg PO DAILY #30 tablet 11/06/18 [Rx] Lisinopril [Zestril] 2.5 mg PO DAILY #30 tablet 11/06/18 [Rx] Metoprolol XL (24 HR) Succ [Toprol Xl] 12.5 mg PO DAILY #30 tab.er.24h 11/06/18 [Rx] Amino Acids/Protein Hydrolys [Pro-Stat Awc Liquid Packet] 30 ml PO DAILY 11/12/18 [History] Calcium Acetate [Phos-LO] 1,334 mg PO TIDWM 11/12/18 [History] Pregabalin [Lyrica] 100 mg PO BID 11/12/18 [History] Amoxicillin/Clavulanate [Augmentin] 875 mg PO BIDWM 4 Days #8 tablet 11/14/18 [Rx] Insulin Degludec [Tresiba Flextouch U-200] 40 units SQ HS 30 Days #2 insuln.pen 11/14/18 [Rx] Carbidopa/Levodopa 25/100 [Sinemet 25/100] 1 each PO TID 11/21/18 [History] Ketoconazole 2% CRM [Nizoral Cream] 1 appl TP BID 11/21/18 [History] Rivastigmine Patch [Exelon] 9.5 mg TD DAILY 11/21/18 [History] Allergy/AdvReac Type Severity Reaction Status Date / Time No Known Allergies Allergy Verified 10/04/18 19:00 ROS unobtainable: due to mental status All Systems Reviewed: The remainder of the systems were reviewed and are negative - Constitutional Constitutional: fever(s) - Cardiovascular Cardiovascular: other, no chest pain, no dyspnea - Respiratory Respiratory: no cough, no dyspnea - Musculoskeletal Musculoskeletal: muscle weakness, numbness Physical Exam - Constitutional Vitals: Temp Pulse Resp BP Pulse Ox 99.4 F 96 20 189/73 92 11/25/18 16:03 11/25/18 16:03 11/25/18 16:03 11/25/18 16:03 11/25/18 16:03 Exam: Constitiutional: Alert . Nonverbal, unable to assess orientation. No acute distress noted Vascular: 1/4 DP/PT bilaterally, CFT <3 sec to all digits, warm to warm from tibia to toes bilaterally Neurologic: normal plantar response, unable to assess further d/t altered mentation Dermatologic: DTI noted to right calcaneous, no erythema, no edema, no lymphangitis, no cellulitis noted Musculoskeletal: 2/5 muscle strength and normal tone bilaterally. Results - Labs Result Diagrams: 11/25/18 04:58 11/25/18 04:58 Labs: Abnormal lab results RBC 2.79 M/mcL (4.19-5.50) L 11/25/18 04:58 Hgb 9.1 g/dL (12.9-16.9) L 11/25/18 04:58 Hct 28.2 % (37.5-50.1) L 11/25/18 04:58 MCV 101.1 fL (83.0-100.0) H 11/25/18 04:58 MCHC 31.5 g/dL (31.6-35.5) L 11/24/18 02:02 MPV 9.3 fL (9.4-12.4) L 11/23/18 05:26 ESR 84 mm/hr (0-10) H 11/21/18 04:56 PT 12.6 Seconds (9.4-12.1) H 11/21/18 01:13 VBG pO2 57 mmHg (25-50) H 11/21/18 01:36 Sodium 133 mEq/L (136-145) L 11/25/18 04:58 Chloride 96 mEq/L (98-107) L 11/25/18 04:58 BUN 31 mg/dL (8-23) H 11/25/18 04:58 Creatinine 4.29 mg/dL (0.70-1.30) H 11/25/18 04:58 Est GFR ( Amer) 17 (> 60) L 11/25/18 04:58 Est GFR (Non-Af Amer) 14 (> 60) L 11/25/18 04:58 Glucose 241 mg/dL (70-105) H 11/25/18 04:58 POC Glucose 282 mg/dL (70-99) H 11/25/18 11:30 Calculated Osmolality 306 (280-300) H 11/23/18 05:26 Calcium 8.0 mg/dL (8.6-10.3) L 11/25/18 04:58 AST 8 Units/L (13-39) L 11/21/18 01:13 ALT < 3 Units/L (7-52) L 11/21/18 01:13 C-Reactive Protein 108 mg/L (Less than 10) H 11/21/18 04:56 Serum Total Protein 6.0 g/dL (6.4-8.9) L 11/21/18 01:13 Albumin 3.1 g/dL (3.5-5.7) L 11/21/18 01:13 Procalcitonin 0.91 ng/mL (0.00-0.15) H 11/21/18 04:56 Urine Clarity Cloudy (Clear) A 11/21/18 00:37 Urine Protein >=300 mg/dL (Neg-Trace) H 11/21/18 00:37 Urine Glucose (UA) 250 mg/dL (Normal) H 11/21/18 00:37 Urine Blood Moderate (Negative) H 11/21/18 00:37 Urine Bilirubin Small (Negative) H 11/21/18 00:37 Ur Leukocyte Esterase Moderate (Negative) H 11/21/18 00:37 Urine Microscopic RBC 30-50 per hpf (0-3) H 11/21/18 00:37 Urine Microscopic WBC TNTC per hpf (0-3) H 11/21/18 00:37 Urine Yeast Many per hpf (None Seen) H 11/21/18 00:37 Ur Culture Indicated? YES (NO) A 11/21/18 00:37 Staphylococcus sp PCR DETECTED (Not Detect) A 11/21/18 01:13 H & H 11/25/18 Range/Units 04:58 Hgb 9.1 L (12.9-16.9) g/dL Hct 28.2 L (37.5-50.1) % All other labs normal. Consult Discharge Plan - Plan [facility]errals: [facility] [Primary Care Provider] -
[2018-11-25] MEDS ORDERED: Sulfamethoxazole/Trimeth SS 1 TAB PO SCH (18:00)
[2018-11-26 02:53] LABS: Hematocrit 31.4 % (37.5-50.1); Hemoglobin 10.4 g/dL (12.9-16.9); Mean Corpuscular HGB Conc 33.1 g/dL (31.6-35.5); Mean Corpuscular Hemoglobin 32.3 pg (28.0-33.3); Mean Corpuscular Volume 97.5 fL (83.0-100.0); Platelet Count 426 K/mcL (140-400); Red Blood Count 3.22 M/mcL (4.19-5.50); Red Cell Distribution Width 13.3 % (11.5-14.5)
[2018-11-26 02:55] LABS: White Blood Count 9.7 K/mcL (4.3-11.1)
[2018-11-26 03:14] LABS: Calcium 8.4 mg/dL (8.6-10.3); Potassium 4.3 mEq/L (3.5-5.1)
[2018-11-26] MEDS: *HR* Heparin 5,000 UNIT/ML VIAL SQ SCH ×3 (05:03→21:47)
[2018-11-26] MEDS: Ondansetron 4 MG/2 ML VIAL IVP PRN (05:03)
[2018-11-26] MEDS ORDERED: *HR* Heparin 10,000 UNIT/10 ML VIAL IV PRN (06:53)
--- NOTE | 2018-11-26 08:23 | Internal Med Progress Note ---
Hospitalist Progress Note - Encounter Date of Encounter: 11/26/18 Time of Encounter: 08:23 - Subjective Interval History: Patient seen and examined this morning at bedside after dialysis. Patient somewhat drowsy. at bedside. Mentioned he is not eating well. He is not able to offer any complaints. He is arousable. He is holding vomiting back h owever unclear if he is nauseous. He has not been wanting to eat as per . - Exam Vitals: Temp Pulse Resp BP Pulse Ox 98.4 F 87 20 172/84 95 11/26/18 06:54 11/26/18 06:54 11/26/18 06:54 11/26/18 06:54 11/26/18 06:54 Exam: General: In no acute distress. Respiratory exam: CTAB. no accessory muscle use, rales, rhonchi, wheezes Cardiovascular exam: RRR, +S1, +S2. no murmur, gallop, rubs. GI/Abdominal exam: soft, appear non-tender, Non-distended, normal bowel sounds, soft, no peritoneal signs. Extremities exam: no pedal edema, pulses palpable in b/l lower extremities Neurological exam: CN II-XII intact, AO X3, no focal deficits. Skin exam: stage 1 sacral decub and non stageable, unstagable on Rt heel Pysch: flat affect - Assessment and Plan (1) Sepsis Current Visit: Yes Status: Acute (2) Diabetes mellitus Current Visit: Yes Status: Chronic (3) Diabetic foot ulcer Current Visit: Yes Status: Acute (4) Sacral decubitus ulcer Current Visit: Yes Status: Chronic (5) ESRD (end stage renal disease) on dialysis Current Visit: Yes Status: Chronic (6) Parkinson's disease dementia Current Visit: Yes Status: Chronic (7) Vascular dementia Current Visit: Yes Status: Chronic - Summary of Assessment and Plan Summary of Assessment and Plan: Assessment Acute Altered mental status Sepsis- resolved Sacral decubitus ulcer recent stroke Cardiomyopathy chronic indwelling cabrera due to urinary retention recently Failure to thrive Chronic CAD Chronic anemia DM Dementia Parkinsonism ESRD Plan - patient with initial concerns of sepsis with fever with possible LLL consolidation. Recent augmentin use. And elevated procalcitonin. Had Blood culture positive for Staph warneri which could be contaminant. - Was on vancomycin and zosyn initially and then cefepime and bactrim. finished 5 days of antibiotics. stop bactrim. Repeat Blood cultures NGTD - AMS could be related to sepsis vs possible stroke on baseline dementia or worsening parkinsonism. I favor later. f/u MRI as he has EF of 35% and is not on anticoagulation as adviced by neurology on discharge few weeks ago. Was not started as per discussion with family due to history of GI bleed. Carotids were unremarkable. Discussed with neurology. Recently dose of cinnamet was increased. Patient mentation likely due to worsening parkinsons. - c/w parkinson's medications. Recently dose of cinnamet increased - HD per nephrology - wound care for sacral decub and heel decub. Does not appear infected - c/w accuchecks and Insulin sliding scaled. levemir stopped as poor appetite and hypoglycemia. - Family does not want to take him to NH and wants to take home. - heparin for DVT. - Palliative care consulted per family wish to discuss option for care at home given worsening parkinson's disease and decreased appetite. Internal Medicine: Result - Labs CBC & Chem 7: 11/26/18 02:28 11/26/18 02:28 Labs: Short CBC 11/26/18 Range/Units 02:28 WBC 9.7 D (4.3-11.1) K/mcL Hgb 10.4 L (12.9-16.9) g/dL Hct 31.4 L (37.5-50.1) % Plt Count 426 H (140-400) K/mcL BMP 11/26/18 02:28 Sodium 133 L Potassium 4.3 Chloride 95 L Carbon Dioxide 24 BUN 40 H Creatinine 5.07 H Glucose 307 H Calcium 8.4 L - ABG Interpretation ABG results: PT/INR, D-dimer PT 12.6 Seconds (9.4-12.1) H 11/21/18 01:13 - Impressions Impressions Foot X-Ray 11/25/18 16:37 IMPRESSION: No acute bony or joint abnormality D/ / Bebeto Ramirez MD / Bebeto Ramirez MD Interpreting Provider: Bebeto Ramirez MD Consult Discharge Plan - Plan [facility]errals: [facility] [Primary Care Provider] - (1) Sepsis Qualifiers: Sepsis type: sepsis due to unspecified organism Qualified Code(s): A41.9 - Sepsis, unspecified organism (2) Diabetes mellitus Qualifiers: Diabetes mellitus type: type 2 Diabetes mellitus terminal superintendent insulin use: with half-way use Diabetes mellitus complication status: with kidney complications Diabetes mellitus complication detail: with chronic kidney disease Chronic kidney disease stage: unspecified stage Qualified Code(s): E11.22 - Type 2 diabetes mellitus with diabetic chronic kidney disease; Z79.4 - rodent exterminator (curre nt) use of insulin (3) Diabetic foot ulcer Qualifiers: Diabetic foot ulcer location: other Diabetes mellitus type: type 2 Lateral ity: left Non-pressure ulcer stage: with fat layer exposed Qualified Code(s): E11.621 - Type 2 diabetes mellitus with foot ulcer; L97.522 - Non-pressure chronic ulcer of other part of left foot with fat layer exposed (4) Sacral decubitus ulcer Qualifiers: Pressure injury stage: stage 1 Qualified Code(s): L89.151 - Pressure ulcer of sacral region, stage 1 (6) Parkinson's disease dementia Qualifiers: Dementia behavioral disturbance: with behavioral disturbance Qualified Code(s): G20 - Parkinson's disease; F02.81 - Dementia in other diseases classified elsewhere with behavioral disturbance (7) Vascular dementia Qualifiers: Dementia behavioral disturbance: with behavioral disturbance Qualified Code(s): F01.51 - Vascular dementia with behavioral disturbance
[2018-11-26] MEDS ORDERED: *HR* Promethazine 25 MG/ML VIAL IVP PRN (08:36)
[2018-11-26] MEDS ORDERED: *HR* Promethazine 25 MG/ML VIAL ONE (08:37)
--- NOTE | 2018-11-26 08:43 | Nephrology Progress Note ---
Date of Encounter: 11/26/18 Time of Encounter: 08:41 - Assessment and Plan (1) ESRD (end stage renal disease) on dialysis Current Visit: Yes Status: Chronic Current regimen is TTS at [facility]. HD in progress for today. Renal diet Renal vitamins Strict I/O Avoid nephrotoxins and renal dose all medications. (2) Anemia Current Visit: Yes Status: Chronic Goal hemoglobin is 10-11. We will monitor Transfusion parameters as per primary team. HGB is 10.4, stable. Qualifiers: Anemia type: unspecified type Qualified Code(s): D64.9 - Anemia, unspecified (3) Altered mental status Current Visit: Yes Status: Acute Per primary. Qualifiers: Altered mental status type: unspecified Qualified Code(s): R41.82 - Altered mental status, unspecified (4) Chronic indwelling Leal catheter Current Visit: Yes Status: Acute Per primary. Subjective Principal diagnosis: ESRD Interval history: Seen and examined, during HD, tolerating well. Denies chest pain or shortness of breath. Denies nausea, vomiting or diarrhea. Denies any needs at this time. Objective - Vital Signs Vital signs: Vital Signs Temp Pulse Resp BP Pulse Ox 11/26/18 06:54 98.4 F 87 20 172/84 95 11/26/18 04:15 98.7 F 86 16 158/79 96 11/26/18 00:14 98.9 F 94 16 151/83 97 11/25/18 20:53 189/92 11/25/18 20:35 98.7 F 101 17 200/95 92 11/25/18 16:03 99.4 F 96 20 189/73 92 11/25/18 11:26 99.1 F 84 20 194/90 92 Intake and Output 11/25/18 11/26/18 11/26/18 23:59 07:59 15:59 Output Total 800 / 800 450 / 450 Balance -800 / 400 -450 / -450 Output: Catheter 800 / 800 450 / 450 Other: Stool Size Moderate Stool Consistency loose liquid Stool Color Brown Weight 86.8 kg Blood Glucose* 302 317 Patient Weight 11/26/18 23:59 Weight 86.8 kg - General Appearance General appearance: Present: well-developed, well-nourished EENT: Present: ATNC, hearing intact, vision intact Neck: Present: supple Respiratory: Present: clear Cardiology: Present: no edema, normal S1, normal S2 Dialysis Vascular Access: Venous Catheter (DRSG C/D/I) Gastrointestinal: Present: normoactive bowel sounds, no tenderness, no guarding Integumentary: Present: no rash, warm and dry Neurologic: Present: alert and oriented x3 Musculoskeletal: Present: no deformities, no erythema Psychiatric: Present: mood/affect appropriate, cooperative - Lab 11/26/18 02:28 11/26/18 02:28 Most recent lab results 11/26/18 02:28 Calcium 8.4 L Consult Discharge Plan - Plan Referrals: [facility] [Primary Care Provider] -
[2018-11-26] MEDS: Insulin LISPRO 300 UNITS/3 ML VIAL SQ SCH ×4 (09:52→21:48)
[2018-11-26] MEDS: Calcium Acetate 667 MG CAPSULE PO SCH ×3 (09:52→13:54)
[2018-11-26] MEDS: Metoprolol XL (24 HR) Succ 25 MG TAB.ER.24H PO SCH ×2 (12:59→13:34)
[2018-11-26] MEDS: carBAMazepine 200 MG TABLET PO SCH ×4 (12:59→21:47)
[2018-11-26] MEDS: Finasteride 5 MG TABLET PO SCH (12:59)
[2018-11-26] MEDS: Rivastigmine Patch 9.5 MG PATCH.TD24 TD SCH (12:59)
[2018-11-26] MEDS: Aspirin Enteric Coated 81 MG Tablet PO SCH ×2 (13:00→13:34)
[2018-11-26] MEDS: Carbidopa/Levodopa 25/100 TABLET PO SCH ×4 (13:00→21:47)
--- NOTE | 2018-11-26 14:01 | Palliative - Consult Note ---
Date of Encounter: 11/26/18 Time of Encounter: 13:00 - Assessment and Plan (1) Altered mental status Current Visit: No Status: Resolved Assessment and plan: Patient with hx dementia and Parkinson's dx. MRI of brain pending. Patient is highly somnolent. He does awake to physical stimuli, however he is irritable, answers some questions appropriately, but is not highly cooperative. Oriented to self and place. Will not answer question on time. Qualifiers: Altered mental status type: unspecified Qualified Code(s): R41.82 - Altered mental status, unspecified (2) Nausea Current Visit: Yes Status: Acute Assessment and plan: Patient s/p dialysis this AM. Opens eyes slowly at times and other times somnolent. Patient has phenergan and zofran thsi AM. No emesis. Plan: Continue Zofran & Phenergan PRN Thickened liquids Suction at the bedside. (3) Goals of care, counseling/discussion Current Visit: Yes Status: Acute Assessment and plan: I spent a total of 45 minutes: 30 minutes were comprised of counseling and information giving around the diagnosis and prognosis with Dina and son Femi. Discussed patients GOC. Patient somnolent and unable to actively parti cipate in any conversations. Dina expressed that patient would not desire to be placed on life support or to have CPR. Explained DNR statuses and desired to change to DNRCC - A, DNI. Patient EF 35%. Dina desires to take patient home. Discussed if patient still desired to do dialysis. Attempted to have discussion with patient about goals. Patent unable to actively participate in conversation. Explained hospice care and benefits of adding layer of support to home and focus on quality of life. Explained life expectancy with cessation of dialysis. Dina emotional and desires what is best for patient. She desires to discuss hospice with her sons and family before final decision is made. Patient without adequate nutrition for days and not likely to do well despite continuing dialysis. In summary, we agreed she would discuss plan with her sons and consider hospice care transition. She is clear on wanting to take the patient home regardless of hospice care or home health. MRI of head pending. Code status changed to DNRCC - A, DNI per patients wishes per discussions with . Will f/u tomorrow on 's decisions. (4) Palliative care encounter Current Visit: Yes Status: Acute (5) Parkinson's disease dementia Current Visit: Yes Status: Chronic Qualifiers: Dementia behavioral disturbance: with behavioral disturbance Qualified Code(s): G20 - Parkinson's disease; F02.81 - Dementia in other diseases classified elsewhere with behavioral disturbance (6) Systolic CHF with reduced left ventricular function, NYHA class 2 Current Visit: Yes Status: Acute (7) ESRD on dialysis Current Visit: Yes Status: Chronic Assessment and plan: Patient T, Th, Sat dialysis. Nephrology following. Case discussed with Debbie Olivarez CNP (8) Diabetic foot ulcer Current Visit: Yes Status: Acute Assessment and plan: Bilateral feet are wrapped due to diabetic foot ulcers. I did not unwrap them. There is dressing on sacral decubitus ulcer which I did not undress. Podiatry following. Qualifiers: Diabetic foot ulcer location: other Diabetes mellitus type: type 2 Latera lity: left Non-pressure ulcer stage: with fat layer exposed Qualified Code(s): E11.621 - Type 2 diabetes mellitus with foot ulcer; L97.522 - Non- pressure chronic ulcer of other part of left foot with fat layer exposed Palliative-CN HPI - Data of Consult Patient: new to practice Consult date: 11/26/18 Requesting Physician: Ryan Kim MD [facility] - Consult Narrative Palliative Care/Comfort Measures: Palliative care Reason for consult: goals of care History of present illness: Mr. Anguiano is a 73 year old male with history of coronary artery disease status post CABG, 9 stents, melanoma, diabetes mellitus, diabetic foot ulcers, sacral decubitus ulcer, ESRD on hemodialysis Sunday and Parkinson's dementia who presented to [facility] with his and his son from alf facility ([facility]) with complaint of altered mental status and fever. Patient admitted with sepsis. + blood culture for Staph. Upon this consult, the patient is highly somnolent. He does awake to physical stimuli, however he is irr itable, answers some questions appropriately, but is not highly cooperative. Oriented to self and place. Will not answer questions on time. Dina and son Femi at bedside. They provided H&P details. MRI of the brain pending. This palliative care consult is for goals of care discussion. CC: Ryan Kim MD - Time Spent with Patient Time: Total time spent is greater than 50% in coordination of care (as documented) at patient's floor/unit and/or counseling patient: Past Med Surg Social Fam HX - Past Medical History Source: old records reviewed, obtained from family, nursing notes reviewed Medical history: cancer, CVA, diabetes, dialysis, glaucoma, hyperlipidemia, hypertension, renal disease, other Additional medical history: skin cancer, parkinson Psychiatric history: depression - Past Surgical History Surgical History: angioplasty/stent, cataract, coronary bypass (CABG), orthopedic, other Additional surgical history: left foot surgery, cardiac stents x9, skin cancer removed, back surgery, - Social History Smoking Status: Never smoker Smokeless Tobacco Status: No Alcohol use: none Drug use: none Occupational status: unemployed Current living situation: [facility] Activity Level: Bed bound Recent Out of Country Travel Within the Last 8 Weeks: No Exposure or Possible Exposure to Illness During Travel: No - Family History Father Living Status: Hx Family Cardiac Disorders: Yes Mother Adopted: No Living Status: Hx Family Cardiac Disorders: Yes Hx Family Cancer: Yes (liver cancer) Medications and Allergies Finasteride [Proscar] 5 mg PO DAILY 01/02/17 [History] Fluticasone Propionate Nasal [Flonase] 100 mcg NS DAILY PRN 01/02/17 [History] Nitroglycerin [Nitrostat] 0.4 mg SL Q5MIN PRN 01/02/17 [History] carBAMazepine [Tegretol] 200 mg PO TID 01/02/17 [History] Ergocalciferol (VITAMIN D2) [Vitamin D2] 50,000 units PO MO 10/04/18 [History] Aspirin Enteric Coated [Aspirin EC] 81 mg PO DAILY #60 tablet.dr 10/12/18 [Rx] Atorvastatin Calcium [Lipitor] 80 mg PO HS 10/20/18 [History] Insulin LISPRO [HumaLOG] 0 units SQ TIDWM 10/20/18 [History] Bisacodyl [Dulcolax] 10 mg RC DAILY PRN supp.rect 10/24/18 [Rx] Ipratropium/Albuterol Neb [Duoneb] 3 ml IH [id number] PRN inhsol 10/24/18 [Rx] Sennosides/Docusate Sodium [Senna Plus] 1 each PO DAILY tablet 10/24/18 [Rx] Cyclobenzaprine [Flexeril] 10 mg PO TID PRN 11/04/18 [History] Lactobacillus Acidophilus [Acidophilus] 1 each PO BID 11/04/18 [History] Ondansetron HCl [Zofran] 4 mg PO Q8HR PRN 11/04/18 [History] Clopidogrel [Plavix] 75 mg PO DAILY #30 tablet 11/06/18 [Rx] Lisinopril [Zestril] 2.5 mg PO DAILY #30 tablet 11/06/18 [Rx] Metoprolol XL (24 HR) Succ [Toprol Xl] 12.5 mg PO DAILY #30 tab.er.24h 11/06/18 [Rx] Amino Acids/Protein Hydrolys [Pro-Stat Awc Liquid Packet] 30 ml PO DAILY 11/12/18 [History] Calcium Acetate [Phos-LO] 1,334 mg PO TIDWM 11/12/18 [History] Pregabalin [Lyrica] 100 mg PO BID 11/12/18 [History] Amoxicillin/Clavulanate [Augmentin] 875 mg PO BIDWM 4 Days #8 tablet 11/14/18 [Rx] Insulin Degludec [Tresiba Flextouch U-200] 40 units SQ HS 30 Days #2 insuln.pen 11/14/18 [Rx] Carbidopa/Levodopa 25/100 [Sinemet 25/100] 1 each PO TID 11/21/18 [History] Ketoconazole 2% CRM [Nizoral Cream] 1 appl TP BID 11/21/18 [History] Rivastigmine Patch [Exelon] 9.5 mg TD DAILY 11/21/18 [History] Allergy/AdvReac Type Severity Reaction Status Date / Time No Known Allergies Allergy Verified 10/04/18 19:00 ROS unobtainable: due to mental status (Patient is highly somnolent. He does awake to physical stimuli, however he is irritable, answers some questions appropriately, but is not highly cooperative. Oriented to self and place. Will not answer question on time.) - Constitutional Constitutional ROS PAL: fatigue - Gastrointestinal Gastrointestinal: heartburn, nausea - Genitourinary Genitourinary ROS male: urinary incontinence - Musculoskeletal Musculoskeletal ROS IM: muscle weakness - Integumentary ROS Integumentary: skin ulcer - Neurological Neurological ROS: weakness - Psychiatric Psychiatric general PM: change in appetite Palliative Care-Exam - Constitutional Vitals: Temp Pulse Resp BP Pulse Ox 97.8 F 87 18 111/80 95 11/26/18 11:15 11/26/18 06:54 11/26/18 11:15 11/26/18 11:15 11/26/18 06:54 General appearance: Present: no acute distress - Head Head Exam: Present: atraumatic, normal inspection - Eye Eye exam: Present: PERRL - ENT ENT exam: Present: mucous membranes moist - Respiratory Respiratory exam: Present: decreased breath sounds - Expanded Respiratory Exam Location: decreased breath sounds: Left, Right, Lower - Cardiovascular Cardiovascular exam: Present: RRR, +S1, +S2 - Expanded Cardiovascular Exam Peripheral pulses: 1+: Posterior Tibialis (L), Posterior Tibialis (R), Dorsalis Pedis (L) PM, Dorsalis Pedis (R) PM, 2+: Carotid (L) PM, Carotid (R) PM, Radial (L), Radial (R), Femoral (L) PM, Femoral (R) PM - GI/Abdominal Exam GI/Abdominal exam: Present: normal bowel sounds, soft - Catheter Type: Urethral (Cabrera) (chronic cabrera catheter) - Extremities Exam Extremities exam: Present: pedal edema (Trace, ) - Neurological Exam Neurological exam: Present: altered Additional comments: Patient is highly somnolent. He does awake to physical stimuli, however he is irritable, answers some questions appropriately, but is not highly cooperative. Oriented to self and place. Will not answer question on time. - Expanded Neurological Exam Coma Scale Eye Opening: To Voice Coma Scale Motor Response: Localizes to Pain Coma Scale Verbal Response: Inappropriate Coma Scale Total: 11 - Psychiatric Psychiatric exam: Present: flat affect - Skin Skin exam: Present: pallor Additional comments: Bilateral feet are wrapped due to diabetic foot ulcers. I did not unwrap them. There is dressing on sacral decubitus ulcer which I did not undress. Permanent tunneled HD cath in place on right upper chest wall intact. No irritation or erythema surrounding. Internal Medicine - CN: Reslt - Labs CBC & Chem 7: 11/26/18 02:28 11/26/18 02:28 Labs: Short CBC 11/26/18 Range/Units 02:28 WBC 9.7 D (4.3-11.1) K/mcL Hgb 10.4 L (12.9-16.9) g/dL Hct 31.4 L (37.5-50.1) % Plt Count 426 H (140-400) K/mcL BMP 11/26/18 02:28 Sodium 133 L Potassium 4.3 Chloride 95 L Carbon Dioxide 24 BUN 40 H Creatinine 5.07 H Glucose 307 H Calcium 8.4 L - ABG Interpretation ABG results: PT/INR, D-dimer PT 12.6 Seconds (9.4-12.1) H 11/21/18 01:13 - Impressions Impressions Foot X-Ray 11/25/18 16:37 IMPRESSION: No acute bony or joint abnormality D/ / Bebeto Ramirez MD / Bebeto Ramirez MD Interpreting Provider: Bebeto Ramirez MD Consult Discharge Plan - Plan [facility]errals: [facility] [Primary Care Provider] - Palliative Quality Palliative Quality: Screen for Code Status: Yes, Screen for Goals of Care: Yes, Screen for Pain: Yes, Screen for Nausea/Vomitting: Yes Code Status: 11/21/18 03:49 Resuscitation Status: Active [RES] Routine Comment: Resuscitation Status: Full Code Palliative Scale - Palliative Performance Scale How ambulatory is this patient?: Totally bed bound What is patient's level of activity and evidence of disease?: Unable to do most activity, Extensive disease How much self-care assistance does patient require?: Total care How much oral intake does the patient have?: Minimal to sips What is this patient's level of consciousness?: Full or drowsy with or without confusion Palliative Performance Score: 30 %
[2018-11-27 07:10] LABS: Hematocrit 33.4 % (37.5-50.1); Hemoglobin 10.8 g/dL (12.9-16.9); Mean Corpuscular HGB Conc 32.3 g/dL (31.6-35.5); Mean Corpuscular Hemoglobin 32.5 pg (28.0-33.3); Mean Corpuscular Volume 100.6 fL (83.0-100.0); Mean Platelet Volume 10.2 fL (9.4-12.4); Platelet Count 462 K/mcL (140-400); Red Blood Count 3.32 M/mcL (4.19-5.50); Red Cell Distribution Width 13.4 % (11.5-14.5)
[2018-11-27 07:15] LABS: White Blood Count 17.1 K/mcL (4.3-11.1)
[2018-11-27 07:39] LABS: Calcium 8.9 mg/dL (8.6-10.3); Potassium 4.4 mEq/L (3.5-5.1)
[2018-11-27] MEDS: *HR* Heparin 5,000 UNIT/ML VIAL SQ SCH ×3 (07:39→21:30)
--- NOTE | 2018-11-27 07:57 | Internal Med Progress Note ---
Hospitalist Progress Note - Encounter Date of Encounter: 11/27/18 Time of Encounter: 07:55 - Subjective Interval History: Assessment and examined this morning in the center. No acute overnight events. He is more alert. Appears to be nauseous and has generalized abdominal pain. Denies any vomiting. Patient did have some bowel movement yesterday. Has not had a good meal for past few days. He is afebrile and hemodynamically stable. - Exam Vitals: Temp Pulse Resp BP Pulse Ox 97.8 F 98 16 150/79 90 11/27/18 06:44 11/27/18 06:44 11/27/18 06:44 11/27/18 06:44 11/27/18 06:44 Exam: General: In no acute distress. Respiratory exam: CTAB no accessory muscle use, rales, rhonchi, wheezes. Coarse breath sounds Cardiovascular exam: RRR, +S1, +S2. no murmur, gallop, rubs. GI/Abdominal exam: soft, generalized non-tender, mildly distended, decreased bowel sounds, no peritoneal signs. Extremities exam: no pedal edema, pulses palpable in b/l lower extremities Neurological exam: CN II-XII intact, AO X3, no focal deficits. Skin exam: stage 1 sacral decub and non stageable, unstagable on Rt heel Pysch: flat affect - Assessment and Plan (1) Sepsis Current Visit: Yes Status: Acute (2) Diabetes mellitus Current Visit: Yes Status: Chronic (3) Diabetic foot ulcer Current Visit: Yes Status: Acute (4) Sacral decubitus ulcer Current Visit: Yes Status: Chronic (5) ESRD (end stage renal disease) on dialysis Current Visit: Yes Status: Chronic (6) Parkinson's disease dementia Current Visit: Yes Status: Chronic (7) Vascular dementia Current Visit: Yes Status: Chronic - Summary of Assessment and Plan Summary of Assessment and Plan: Assessment Acute Altered mental status Sepsis- resolved Leukocytosis Sacral decubitus ulcer recent stroke Cardiomyopathy chronic indwelling cabrera due to urinary retention recently Failure to thrive Chronic CAD Chronic anemia DM Dementia Parkinsonism ESRD Plan - patient with initial concerns of sepsis with fever with possible LLL consolidation. Recent augmentin use. And elevated procalcitonin. Had Blood culture positive for Staph warneri which could be contaminant. Was on vancomycin and zosyn initially and then cefepime and bactrim. finished 5 days of antibiotics. abx now sopped. Repeat Blood cultures NGTD. However today with significant leukocytosis and abdominal pain. Will get stat lactic acid, blood cultures, procalcitonin and CT abdomen/pelvis. - AMS likely on and off with parkinson's. Today much better mentation brito. MRI without acute stroke. EF of 35% and is not on anticoagulation as adviced by neurology on discharge few weeks ago. Was not started as per discussion with family due to history of GI bleed. Carotids were unremarkable. Recently dose of cinnamet was increased. Patient mentation likely due to worsening parkinsons. - c/w parkinson's medications. Recently dose of cinnamet increased - HD per nephrology - wound care for sacral decub and heel decub. Does not appear infected - c/w accuchecks and Insulin sliding scaled. levemir stopped as poor appetite and hypoglycemia. - Family does not want to take him to NH and wants to take home. - heparin for DVT. - Palliative care discussion on going. Patient made DNRCCADNI. Internal Medicine: Result - Labs CBC & Chem 7: 11/27/18 06:34 11/27/18 06:34 Labs: Short CBC 11/27/18 Range/Units 06:34 WBC 17.1 H D (4.3-11.1) K/mcL Hgb 10.8 L (12.9-16.9) g/dL Hct 33.4 L (37.5-50.1) % Plt Count 462 H (140-400) K/mcL BMP 11/27/18 06:34 Sodium 137 Potassium 4.4 Chloride 96 L Carbon Dioxide 23 BUN 35 H Creatinine 4.30 H Glucose 256 H Calcium 8.9 - ABG Interpretation ABG results: PT/INR, D-dimer PT 12.6 Seconds (9.4-12.1) H 11/21/18 01:13 - Impressions Impressions Brain MRI 11/25/18 15:51 IMPRESSION: Stable exam. No evidence of acute ischemia. Mild chronic microvascular disease within the periventricular white matter. Old lacune within the left paracentral portion of the louie. Tiny right thalamic lacunes. Cerebral atrophy. Mild right parietal lobe encephalomalacia. D/ / 11/26/2018 15:55:09 Kirill Hoffmann MD / lizy Interpreting Provider: Kirill Hoffmann MD Consult Discharge Plan - Plan Referrals: [facility] [Primary Care Provider] - (1) Sepsis Qualifiers: Sepsis type: sepsis due to unspecified organism Qualified Code(s): A41.9 - Sepsis, unspecified organism (2) Diabetes mellitus Qualifiers: Diabetes mellitus type: type 2 Diabetes mellitus snf insulin use: with snf use Diabetes mellitus complication status: with kidney complications Diabetes mellitus complication detail: with chronic kidney disease Chronic kidney disease stage: unspecified stage Qualified Code(s): E11.22 - Type 2 diabetes mellitus with diabetic chronic kidney disease; 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 (3) Diabetic foot ulcer Qualifiers: Diabetic foot ulcer location: other Diabetes mellitus type: type 2 Laterality: left Non-pressure ulcer stage: with fat layer exposed Qualified Code(s): E11.621 - Type 2 diabetes mellitus with foot ulcer; L97.522 - Non- pressure chronic ulcer of other part of left foot with fat layer exposed (4) Sacral decubitus ulcer Qualifiers: Pressure injury stage: stage 1 Qualified Code(s): L89.151 - Pressure ulcer of sacral region, stage 1 (6) Parkinson's disease dementia Qualifiers: Dementia behavioral disturbance: with behavioral disturbance Qualified Code(s): G20 - Parkinson's disease; F02.81 - Dementia in other diseases classified elsewhere with behavioral disturbance (7) Vascular dementia Qualifiers: Dementia behavioral disturbance: with behavioral disturbance Qualified Code(s): F01.51 - Vascular dementia with behavioral disturbance
[2018-11-27] MEDS: Aspirin Enteric Coated 81 MG Tablet PO SCH (09:48)
[2018-11-27] MEDS: Finasteride 5 MG TABLET PO SCH (09:48)
[2018-11-27] MEDS: Metoprolol XL (24 HR) Succ 25 MG TAB.ER.24H PO SCH (09:48)
[2018-11-27] MEDS: Calcium Acetate 667 MG CAPSULE PO SCH ×3 (09:48→17:13)
[2018-11-27] MEDS: Carbidopa/Levodopa 25/100 TABLET PO SCH ×3 (09:48→21:30)
[2018-11-27] MEDS: Rivastigmine Patch 9.5 MG PATCH.TD24 TD SCH (09:49)
[2018-11-27] MEDS: carBAMazepine 200 MG TABLET PO SCH ×3 (09:49→21:30)
[2018-11-27] MEDS: Insulin LISPRO 300 UNITS/3 ML VIAL SQ SCH ×4 (10:36→21:25)
--- NOTE | 2018-11-27 10:38 | Nephrology Progress Note ---
Date of Encounter: 11/27/18 Time of Encounter: 10:34 - Assessment and Plan (1) ESRD (end stage renal disease) on dialysis Current Visit: Yes Status: Chronic Current regimen is TTS at [facility]. HD completed yesterday. Renal diet Renal vitamins Strict I/O Avoid nephrotoxins and renal dose all medications. Appreciate palliative recommendations, will continue to follow along as long as patient and want to continue HD. (2) Anemia Current Visit: Yes Status: Chronic Goal hemoglobin is 10-11. We will monitor Transfusion parameters as per primary team. HGB is 10.8, stable. Qualifiers: Anemia type: unspecified type Qualified Code(s): D64.9 - Anemia, unspecified (3) Altered mental status Current Visit: Yes Status: Acute Per primary. Qualifiers: Altered mental status type: unspecified Qualified Code(s): R41.82 - Altered mental status, unspecified (4) Chronic indwelling Leal catheter Current Visit: Yes Status: Acute Per primary. Subjective Principal diagnosis: ESRD Interval history: Seen and examined. Pt is more somnolent today. Will answer direct questions. Denies chest pain or shortness of breath. Denies nausea, vomiting or diarrhea. Denies any needs at this time. Objective - Vital Signs Vital signs: Vital Signs Temp Pulse Resp BP Pulse Ox 11/27/18 10:28 97.6 F 98 16 155/79 96 11/27/18 06:44 97.8 F 98 16 150/79 90 11/27/18 04:05 97.9 F 94 17 144/75 91 11/27/18 00:12 97.8 F 87 16 162/83 96 11/26/18 19:20 98.9 F 86 17 131/74 99 11/26/18 16:55 98.7 F 91 18 134/71 95 11/26/18 11:15 97.8 F 18 111/80 11/26/18 11:00 109/70 11/26/18 10:45 113/75 Intake and Output 11/26/18 11/27/18 11/27/18 23:59 07:59 15:59 Intake Total 0 / 0 Balance 0 / 0 Intake: Oral 0 / 0 Other: Meal Dinner Breakfast Percent of Meal Consumed 5% 0% Weight 82.9 kg Blood Glucose* 196 243 Patient Weight 11/27/18 23:59 Weight 82.9 kg - General Appearance General appearance: Present: chronically ill, frail EENT: Present: ATNC, hearing intact, vision intact Neck: Present: supple Respiratory: Present: clear Cardiology: Present: no edema, normal S1, normal S2 Dialysis Vascular Access: Venous Catheter (DRSG C/D/I) Gastrointestinal: Present: normoactive bowel sounds, no tenderness, no guarding Integumentary: Present: no rash, warm and dry Neurologic: Present: alert and oriented x3 Musculoskeletal: Present: no deformities, no erythema Psychiatric: Present: mood/affect appropriate, cooperative - Lab 11/27/18 06:34 11/27/18 06:34 Most recent lab results 11/27/18 06:34 Calcium 8.9 Consult Discharge Plan - Plan Referrals: [facility] [Primary Care Provider] -
--- NOTE | 2018-11-27 11:23 | Podiatry Progress Note ---
Date of Encounter: 11/27/18 Time of Encounter: 11:14 - Assessment and Plan (1) Diabetic foot ulcer Current Visit: Yes Status: Acute Assessment: Right calcaneal DTI, unstageable WBC 17.1, increased from yesterday, afebrile ESR 84, CRP 108 A1C 9.7 on 11/04/18 No erythema, no edema, no lymphangitis noted No open wound noted XR negative for OM or osseus abnormality Blood cultures returned staph warneri x 1 set, negative x 2 sets 11/25 and 11/27 Plan: Local wound care, nursing to change Keep heels elevated at all times, avoid pressure against bed frame Recommend repeating WBC, consider other sources of infection as wound appears stable and does not appear infectious, if no other source found will discuss with surgeon any surgical intervention that may be warranted Qualifiers: Diabetic foot ulcer location: other Diabetes mellitus type: type 2 Laterality: left Non-pressure ulcer stage: with fat layer exposed Qualified Code(s): E11.621 - Type 2 diabetes mellitus with foot ulcer; L97.522 - Non- pressure chronic ulcer of other part of left foot with fat layer exposed Subjective Principal diagnosis: ESRD Interval history: Patient awake in bed. Answers yes or no questions. Denies fevers, chills, nausea, vomiting, or diarrhea. Denies calf pain, chest pain, or shortness of breath. During examination patient appeared nauseated as he grabbed a bag but no emesis was noted. Unable to get a clear picture of patient orientation due to lack of participation. Objective - Vital Signs Vital Signs: Vital Signs Temp Pulse Resp BP Pulse Ox 11/27/18 10:28 97.6 F 98 16 155/79 96 11/27/18 06:44 97.8 F 98 16 150/79 90 11/27/18 04:05 97.9 F 94 17 144/75 91 11/27/18 00:12 97.8 F 87 16 162/83 96 11/26/18 19:20 98.9 F 86 17 131/74 99 11/26/18 16:55 98.7 F 91 18 134/71 95 11/26/18 11:15 97.8 F 18 111/80 Intake and Output 11/26/18 11/27/18 11/27/18 23:59 07:59 15:59 Intake Total 0 / 0 Balance 0 / 0 Intake: Oral 0 / 0 Other: Meal Dinner Breakfast Percent of Meal Consumed 5% 0% Weight 82.9 kg Blood Glucose* 196 243 Patient Weight 11/27/18 23:59 Weight 82.9 kg - Exam Exam: Constitiutional: Alert . Nonverbal, unable to assess orientation. No acute distress noted Vascular: 1/4 DP/PT bilaterally, CFT <3 sec to all digits, warm to warm from tibia to toes bilaterally Neurologic: normal plantar response, unable to assess further d/t altered mentation Dermatologic: DTI noted to right calcaneous, no erythema, no edema, no lymphangitis, no cellulitis noted Musculoskeletal: 2/5 muscle strength and normal tone bilaterally. - Lab Result Diagrams: 11/27/18 06:34 11/27/18 06:34 Labs: Abnormal lab results WBC 17.1 K/mcL (4.3-11.1) H D 11/27/18 06:34 RBC 3.32 M/mcL (4.19-5.50) L 11/27/18 06:34 Hgb 10.8 g/dL (12.9-16.9) L 11/27/18 06:34 Hct 33.4 % (37.5-50.1) L 11/27/18 06:34 MCV 100.6 fL (83.0-100.0) H 11/27/18 06:34 MCHC 31.5 g/dL (31.6-35.5) L 11/24/18 02:02 Plt Count 462 K/mcL (140-400) H 11/27/18 06:34 MPV 9.3 fL (9.4-12.4) L 11/23/18 05:26 ESR 84 mm/hr (0-10) H 11/21/18 04:56 PT 12.6 Seconds (9.4-12.1) H 11/21/18 01:13 VBG pO2 57 mmHg (25-50) H 11/21/18 01:36 Sodium 133 mEq/L (136-145) L 11/26/18 02:28 Chloride 96 mEq/L (98-107) L 11/27/18 06:34 BUN 35 mg/dL (8-23) H 11/27/18 06:34 Creatinine 4.30 mg/dL (0.70-1.30) H 11/27/18 06:34 Est GFR ( Amer) 17 (> 60) L 11/27/18 06:34 Est GFR (Non-Af Amer) 14 (> 60) L 11/27/18 06:34 Glucose 256 mg/dL (70-105) H 11/27/18 06:34 POC Glucose 196 mg/dL (70-99) H 11/26/18 21:08 Calculated Osmolality 301 (280-300) H 11/27/18 06:34 Calcium 8.4 mg/dL (8.6-10.3) L 11/26/18 02:28 AST 8 Units/L (13-39) L 11/21/18 01:13 ALT < 3 Units/L (7-52) L 11/21/18 01:13 C-Reactive Protein 108 mg/L (Less than 10) H 11/21/18 04:56 Serum Total Protein 6.0 g/dL (6.4-8.9) L 11/21/18 01:13 Albumin 3.1 g/dL (3.5-5.7) L 11/21/18 01:13 Procalcitonin 0.91 ng/mL (0.00-0.15) H 11/21/18 04:56 Urine Clarity Cloudy (Clear) A 11/21/18 00:37 Urine Protein >=300 mg/dL (Neg-Trace) H 11/21/18 00:37 Urine Glucose (UA) 250 mg/dL (Normal) H 11/21/18 00:37 Urine Blood Moderate (Negative) H 11/21/18 00:37 Urine Bilirubin Small (Negative) H 11/21/18 00:37 Ur Leukocyte Esterase Moderate (Negative) H 11/21/18 00:37 Urine Microscopic RBC 30-50 per hpf (0-3) H 11/21/18 00:37 Urine Microscopic WBC TNTC per hpf (0-3) H 11/21/18 00:37 Urine Yeast Many per hpf (None Seen) H 11/21/18 00:37 Ur Culture Indicated? YES (NO) A 11/21/18 00:37 Staphylococcus sp PCR DETECTED (Not Detect) A 11/21/18 01:13 Microbiology, Last 48 Hours 11/27/18 09:20 Blood Culture - Preliminary Peripheral Venipuncture Culture is incubating and being continuously monitored for growth. Final report to follow. 11/27/18 09:29 Blood Culture - Preliminary Peripheral Venipuncture Culture is incubating and being continuously monitored for growth. Final report to follow. 11/21/18 01:13 Blood Culture - Final Peripheral Venipuncture No growth. Final report. 11/25/18 16:44 Blood Culture - Preliminary Peripheral Venipuncture Culture is incubating and being continuously monitored for growth. Final report to follow. 11/25/18 16:40 Blood Culture - Preliminary Peripheral Venipuncture Culture is incubating and being continuously monitored for growth. Final report to follow. Consult Discharge Plan - Plan [facility]errals: [facility]Primary Care Provider[facility] - ([facility])
--- NOTE | 2018-11-27 12:53 | Palliative Progress Note ---
Date of Encounter: 11/27/18 Time of Encounter: 12:30 - Assessment and plan (1) Nausea Current Visit: Yes Status: Acute (2) Altered mental status Current Visit: Yes Status: Acute Assessment and plan: Improved today, able to converse and makes his needs known. Monitor Qualifiers: Altered mental status type: unspecified Qualified Code(s): R41.82 - Altered mental status, unspecified (3) Goals of care, counseling/discussion Current Visit: Yes Status: Acute Assessment and plan: Discussed goals of care with patient with , daughter at bedside. He is unsure at this point if he wants to continue with dialysis. He understands that life would be limited, however, he has been suffering with many medical conditions and has poor quality of life. He wants to think about this and discuss further with . Does desire to have dialysis tomorrow and "see how it goes". Nephrology aware. Dr. Kim notified here and plans on speaking with them as well. Will f/u in am. (4) ESRD (end stage renal disease) on dialysis Current Visit: No Status: Chronic Assessment and plan: Nephrology following. (5) Cerebrovascular accident Current Visit: No Status: Chronic Qualifiers: CVA mechanism: unspecified Qualified Code(s): I63.9 - Cerebral infarction, unspecified (6) Palliative care encounter Current Visit: Yes Status: Acute - Time Spent With Patient Total time spent is greater than 50% in coordination of care (as documented) at patient's floor/unit and/or counseling patient: 25 - 35 minutes - Subjective Interval history: Patient with new abd pain, nausea this am. Still has some nausea and states "feels terrible", but appears more comfortable than this am. WBC increased to 17 today - CT completed this am with no acute abdominal findings. Vitals stable. He is more alert than yesterday and is able to answer simple questions and communicate his needs. , daughter at bedside. - Constitutional Vitals: Abnormal lab results WBC 17.1 K/mcL (4.3-11.1) H D 11/27/18 06:34 RBC 3.32 M/mcL (4.19-5.50) L 11/27/18 06:34 Hgb 10.8 g/dL (12.9-16.9) L 11/27/18 06:34 Hct 33.4 % (37.5-50.1) L 11/27/18 06:34 MCV 100.6 fL (83.0-100.0) H 11/27/18 06:34 MCHC 31.5 g/dL (31.6-35.5) L 11/24/18 02:02 Plt Count 462 K/mcL (140-400) H 11/27/18 06:34 MPV 9.3 fL (9.4-12.4) L 11/23/18 05:26 ESR 84 mm/hr (0-10) H 11/21/18 04:56 PT 12.6 Seconds (9.4-12.1) H 11/21/18 01:13 VBG pO2 57 mmHg (25-50) H 11/21/18 01:36 Sodium 133 mEq/L (136-145) L 11/26/18 02:28 Chloride 96 mEq/L (98-107) L 11/27/18 06:34 BUN 35 mg/dL (8-23) H 11/27/18 06:34 Creatinine 4.30 mg/dL (0.70-1.30) H 11/27/18 06:34 Est GFR ( Amer) 17 (> 60) L 11/27/18 06:34 Est GFR (Non-Af Amer) 14 (> 60) L 11/27/18 06:34 Glucose 256 mg/dL (70-105) H 11/27/18 06:34 POC Glucose 196 mg/dL (70-99) H 11/26/18 21:08 Calculated Osmolality 301 (280-300) H 11/27/18 06:34 Calcium 8.4 mg/dL (8.6-10.3) L 11/26/18 02:28 AST 8 Units/L (13-39) L 11/21/18 01:13 ALT < 3 Units/L (7-52) L 11/21/18 01:13 C-Reactive Protein 108 mg/L (Less than 10) H 11/21/18 04:56 Serum Total Protein 6.0 g/dL (6.4-8.9) L 11/21/18 01:13 Albumin 3.1 g/dL (3.5-5.7) L 11/21/18 01:13 Procalcitonin 0.91 ng/mL (0.00-0.15) H 11/21/18 04:56 Urine Clarity Cloudy (Clear) A 11/21/18 00:37 Urine Protein >=300 mg/dL (Neg-Trace) H 11/21/18 00:37 Urine Glucose (UA) 250 mg/dL (Normal) H 11/21/18 00:37 Urine Blood Moderate (Negative) H 11/21/18 00:37 Urine Bilirubin Small (Negative) H 11/21/18 00:37 Ur Leukocyte Esterase Moderate (Negative) H 11/21/18 00:37 Urine Microscopic RBC 30-50 per hpf (0-3) H 11/21/18 00:37 Urine Microscopic WBC TNTC per hpf (0-3) H 11/21/18 00:37 Urine Yeast Many per hpf (None Seen) H 11/21/18 00:37 Ur Culture Indicated? YES (NO) A 11/21/18 00:37 Staphylococcus sp PCR DETECTED (Not Detect) A 11/21/18 01:13 General appearance: Present: mild distress - Respiratory Respiratory exam: Present: decreased breath sounds Additional comments: Moist cough, occasional anterior rhonchi - Cardiovascular Cardiovascular exam: Present: RRR, +S1, +S2 - GI/Abdominal GI/Abdominal exam: Present: distended, normal bowel sounds, soft - Additional comments: Leal with light agus urine - Extremities Exam Additional comments: Dressings to bilateral lower extremities D/I. I did not take these off. - Neurological Exam Neurological exam: Present: alert (Oriented to name and place, follows commands. ) - Psychiatric Psychiatric exam: Present: flat affect - Skin Skin exam: Present: dry, pallor, warm Palliative Quality Palliative Quality: Screen for Code Status: Yes, Screen for Goals of Care: Yes, Screen for Pain: Yes, Screen for Nausea/Vomitting: Yes Code Status: 11/21/18 03:49 Resuscitation Status: Active [RES] Routine Comment: Resuscitation Status: Full Code 11/26/18 14:47 DNR [Resuscitation Status: Active] [RES] Routine Comment: Resuscitation Status: [id number] - Labs CBC & Chem 7: 11/27/18 06:34 11/27/18 06:34 Labs: Laboratory Results - last 24 hr 11/25/18 11/26/18 11/26/18 15:56 07:00 10:51 WBC RBC Hgb Hct MCV MCH MCHC RDW Plt Count MPV Sodium Potassium Chloride Carbon Dioxide BUN Creatinine Est GFR ( Amer) Est GFR (Non-Af Amer) BUN/Creatinine Ratio Glucose POC Glucose 281 H 317 H 144 H Calculated Osmolality Lactic Acid Calcium Specimen Rejected 11/26/18 11/26/18 11/27/18 16:51 21:08 06:34 WBC 17.1 H D RBC 3.32 L Hgb 10.8 L Hct 33.4 L MCV 100.6 H MCH 32.5 MCHC 32.3 RDW 13.4 Plt Count 462 H MPV 10.2 Sodium Potassium Chloride Carbon Dioxide BUN Creatinine Est GFR ( Amer) Est GFR (Non-Af Amer) BUN/Creatinine Ratio Glucose POC Glucose 200 H 196 H Calculated Osmolality Lactic Acid Calcium Specimen Rejected 11/27/18 11/27/18 11/27/18 06:34 06:34 09:29 WBC RBC Hgb Hct MCV MCH MCHC RDW Plt Count MPV Sodium 137 Potassium 4.4 Chloride 96 L Carbon Dioxide 23 BUN 35 H Creatinine 4.30 H Est GFR ( Amer) 17 L Est GFR (Non-Af Amer) 14 L BUN/Creatinine Ratio 8 Glucose 256 H POC Glucose Calculated Osmolality 301 H Lactic Acid 1.2 Calcium 8.9 Specimen Rejected Volume - Impressions Impressions Brain MRI 11/25/18 15:51 IMPRESSION: Stable exam. No evidence of acute ischemia. Mild chronic microvascular disease within the periventricular white matter. Old lacune within the left paracentral portion of the louie. Tiny right thalamic lacunes. Cerebral atrophy. Mild right parietal lobe encephalomalacia. D/ / 11/26/2018 15:55:09 Kirill Hoffmann MD / lizy Interpreting Provider: Kirill Hoffmann MD Abdomen/Pelvis CT 11/27/18 08:15 IMPRESSION: Increased pleural-parenchymal disease at the lung bases, right greater than left Decrease hydronephrosis status post Leal catheter insertion. There is mild injection of the fat surrounding the bladder. Recommend correlation with urinalysis Persistent wall thickening of the colon. No pericolonic abscess Fluid is seen at the GE junction. Correlate for signs of reflux D/ / Yordy Kidd MD / Yordy Kidd MD Interpreting Provider: Yordy Kidd MD - ABG Interpretation ABG results: PT/INR, D-dimer PT 12.6 Seconds (9.4-12.1) H 11/21/18 01:13 Palliative Scale - Palliative Performance Scale How ambulatory is this patient?: Totally bed bound What is patient's level of activity and evidence of disease?: Unable to do most activity, Extensive disease How much self-care assistance does patient require?: Total care How much oral intake does the patient have?: Minimal to sips What is this patient's level of consciousness?: Full or drowsy with or without confusion Palliative Performance Score: 30 % Consult Discharge Plan - Plan [facility]errals: [facility] [Primary Care Provider] - ([facility])
[2018-11-27 13:59] LABS: Basophils % 0.1 %; Hemoglobin 11.1 g/dL (12.9-16.9); Immature Granulocytes % 0.9 % (0-4); Lymphocytes # 0.9 K/mcL (0.6-4.6); Lymphocytes % 6.4 %; Mean Corpuscular HGB Conc 32.6 g/dL (31.6-35.5); Mean Corpuscular Hemoglobin 32.6 pg (28.0-33.3); Mean Platelet Volume 10.1 fL (9.4-12.4); Monocytes # 0.4 K/mcL (0.0-1.3); Monocytes % 3.2 %; Neutrophils # 12.4 K/mcL (1.6-8.9); Platelet Count 456 K/mcL (140-400); Red Cell Distribution Width 13.5 % (11.5-14.5); Segmented Neutrophils % 89.4 %; White Blood Count 13.8 K/mcL (4.3-11.1)
[2018-11-27] MEDS ORDERED: 0.9 % Sodium Chloride 500 ML IVC SCH (15:15)
[2018-11-27] MEDS: Piperacillin/Tazobactam 3.375 GM in 0.9 % Sodium Chloride Mini Bag 100 ML IVPB SCH (17:13)
[2018-11-27] MEDS: Doxycycline 100 MG in 0.9 % Sodium Chloride Mini Bag 100 ML IVPB SCH (18:06)
[2018-11-28] MEDS: Piperacillin/Tazobactam 3.375 GM in 0.9 % Sodium Chloride Mini Bag 100 ML IVPB SCH (00:07)
[2018-11-28] MEDS: Doxycycline 100 MG in 0.9 % Sodium Chloride Mini Bag 100 ML IVPB SCH (05:58)
[2018-11-28] MEDS: *HR* Heparin 5,000 UNIT/ML VIAL SQ SCH ×3 (05:59→21:28)
[2018-11-28 07:08] LABS: Basophils % 0.1 %; Hematocrit 32.7 % (37.5-50.1); Hemoglobin 10.2 g/dL (12.9-16.9); Immature Granulocytes % 1.1 % (0-4); Lymphocytes # 1.2 K/mcL (0.6-4.6); Mean Corpuscular HGB Conc 31.2 g/dL (31.6-35.5); Mean Corpuscular Hemoglobin 32.3 pg (28.0-33.3); Mean Corpuscular Volume 103.5 fL (83.0-100.0); Mean Platelet Volume 10.1 fL (9.4-12.4); Monocytes # 0.7 K/mcL (0.0-1.3); Monocytes % 5.2 %; Neutrophils # 11.2 K/mcL (1.6-8.9); Platelet Count 463 K/mcL (140-400); Red Blood Count 3.16 M/mcL (4.19-5.50); Red Cell Distribution Width 13.6 % (11.5-14.5); Segmented Neutrophils % 84.6 %; White Blood Count 13.3 K/mcL (4.3-11.1)
[2018-11-28 07:23] LABS: Calcium 8.7 mg/dL (8.6-10.3); Potassium 4.2 mEq/L (3.5-5.1)
--- NOTE | 2018-11-28 07:59 | Internal Med Progress Note ---
Hospitalist Progress Note - Encounter Date of Encounter: 11/28/18 Time of Encounter: 07:59 - Subjective Interval History: Section seen and examined this morning at bedside. No acute overnight events. He had some chest discomfort. The electrical assistant was compressing on his chest. Otherwise had mild shortness of breath. Denied any other complaints but did not fell well with some nausea. Later on during dialysis he developed significant hypotension and diaphoresis and the dialysis had to be stopped. - Exam Vitals: Temp Pulse Resp BP Pulse Ox 97.6 F 82 16 158/77 96 11/28/18 06:33 11/28/18 06:33 11/28/18 06:33 11/28/18 06:33 11/28/18 06:33 Exam: General: In no acute distress. Respiratory exam: no accessory muscle use, rales, rhonchi, wheezes. Coarse breath sounds Cardiovascular exam: RRR, +S1, +S2. no murmur, gallop, rubs. GI/Abdominal exam: soft, nontender, present bowel sounds, no peritoneal signs. Extremities exam: no pedal edema, pulses palpable in b/l lower extremities Neurological exam: CN II-XII intact, AO X3, no focal deficits. Skin exam: stage 1 sacral decub and non stageable, unstagable on Rt heel Pysch: flat affect - Assessment and Plan (1) Sepsis Current Visit: Yes Status: Acute (2) Diabetes mellitus Current Visit: Yes Status: Chronic (3) Diabetic foot ulcer Current Visit: Yes Status: Acute (4) Sacral decubitus ulcer Current Visit: Yes Status: Chronic (5) ESRD (end stage renal disease) on dialysis Current Visit: Yes Status: Chronic (6) Parkinson's disease dementia Current Visit: Yes Status: Chronic (7) Vascular dementia Current Visit: Yes Status: Chronic - Summary of Assessment and Plan Summary of Assessment and Plan: Assessment Acute Altered mental status-resolved Sepsis- resolved Leukocytosis Sacral decubitus ulcer recent stroke Cardiomyopathy chronic indwelling cabrera due to urinary retention recently Failure to thrive Chronic CAD Chronic anemia DM Dementia Parkinsonism ESRD Plan - Continue patient on empiric doxycycline and Zosyn for at least 4-6 more days for pneumonia as evidence on CT given leukocytosis and hypotension. Repeat blood cultures no growth to date. Had Blood culture positive for Staph warneri which could be contaminant. Was on vancomycin and zosyn initially and then cefepime and bactrim. finished 5 days of antibiotics before. - AMS likely on and off likely due to worsening parkinsons. c/w parkinson's medications. Recently dose of cinnamet increased - Could not tolerate dialysis today due to hypotension. Per discussion with family we will be considering [place] hosp[facility]. Palliative care following. Patient made [id number]. - c/w accuchecks and Insulin sliding scaled. levemir stopped as poor appetite and hypoglycemia. - heparin for DVT. Internal Medicine: Result - Labs CBC & Chem 7: 11/28/18 05:41 11/28/18 05:41 Labs: Short CBC 11/27/18 11/28/18 Range/Units 13:15 05:41 WBC 13.8 H 13.3 H (4.3-11.1) K/mcL Hgb 11.1 L 10.2 L (12.9-16.9) g/dL Hct 34.0 L 32.7 L (37.5-50.1) % Plt Count 456 H 463 H (140-400) K/mcL Neutrophils # 12.4 H 11.2 H (1.6-8.9) K/mcL BMP 11/28/18 05:41 Sodium 139 Potassium 4.2 Chloride 98 Carbon Dioxide 22 L BUN 54 H Creatinine 5.61 H Glucose 249 H Calcium 8.7 - ABG Interpretation ABG results: PT/INR, D-dimer PT 12.6 Seconds (9.4-12.1) H 11/21/18 01:13 - Impressions Impressions Abdomen/Pelvis CT 11/27/18 08:15 IMPRESSION: Increased pleural-parenchymal disease at the lung bases, right greater than left Decrease hydronephrosis status post Cabrera catheter insertion. There is mild injection of the fat surrounding the bladder. Recommend correlation with urinalysis Persistent wall thickening of the colon. No pericolonic abscess Fluid is seen at the GE junction. Correlate for signs of reflux D/ / Yordy Kidd MD / Yordy Kidd MD Interpreting Provider: Yordy Kidd MD Consult Discharge Plan - Plan Referrals: [facility] [Primary Care Provider] - ([facility]) (1) Sepsis Qualifiers: Sepsis type: sepsis due to unspecified organism Qualified Code(s): A41.9 - Sepsis, unspecified organism (2) Diabetes mellitus Qualifiers: Diabetes mellitus type: type 2 Diabetes mellitus nursing home insulin use: with marine oil terminal superintendent use Diabetes mellitus complication status: with kidney complications Diabetes mellitus complication detail: with chronic kidney disease Chronic kidney disease stage: unspecified stage Qualified Code(s): E11.22 - Type 2 diabetes mellitus with diabetic chronic kidney disease; Z79.4 - manager intermediate (current) use of insulin (3) Diabetic foot ulcer Qualifiers: Diabetic foot ulcer location: other Diabetes mellitus type: type 2 Laterality: left Non-pressure ulcer stage: with fat layer exposed Qualified Code(s): E11.621 - Type 2 diabetes mellitus with foot ulcer; L97.522 - Non- pressure chronic ulcer of other part of left foot with fat layer exposed (4) Sacral decubitus ulcer Qualifiers: Pressure injury stage: stage 1 Qualified Code(s): L89.151 - Pressure ulcer of sacral region, stage 1 (6) Parkinson's disease dementia Qualifiers: Dementia behavioral disturbance: with behavioral disturbance Qualified Code(s): G20 - Parkinson's disease; F02.81 - Dementia in other diseases classified elsewhere with behavioral disturbance (7) Vascular dementia Qualifiers: Dementia behavioral disturbance: with behavioral disturbance Qualified Code(s): F01.51 - Vascular dementia with behavioral disturbance
[2018-11-28] MEDS ORDERED: Piperacillin/Tazobactam 3.375 GM in 0.9 % Sodium Chloride Mini Bag 100 ML IVPB SCH (08:20)
[2018-11-28] MEDS: Metoprolol XL (24 HR) Succ 25 MG TAB.ER.24H PO SCH (08:37)
[2018-11-28] MEDS: Finasteride 5 MG TABLET PO SCH (08:37)
[2018-11-28] MEDS: Carbidopa/Levodopa 25/100 TABLET PO SCH ×3 (08:37→21:27)
[2018-11-28] MEDS: Calcium Acetate 667 MG CAPSULE PO SCH ×3 (08:37→17:10)
[2018-11-28] MEDS: Aspirin Enteric Coated 81 MG Tablet PO SCH (08:38)
[2018-11-28] MEDS: carBAMazepine 200 MG TABLET PO SCH ×3 (08:38→21:27)
[2018-11-28] MEDS: Rivastigmine Patch 9.5 MG PATCH.TD24 TD SCH (08:39)
[2018-11-28] MEDS: Insulin LISPRO 300 UNITS/3 ML VIAL SQ SCH ×4 (10:10→22:21)
--- NOTE | 2018-11-28 12:12 | Nephrology Progress Note ---
Date of Encounter: 11/28/18 Time of Encounter: 12:07 - Assessment and Plan (1) ESRD (end stage renal disease) on dialysis Current Visit: Yes Status: Chronic Current regimen is TTS at [facility]. HD had to be aborted today due to hypotension, pt became nauseous and diaphoretic. and patient have decided to d/c HD at this time. Renal diet Renal vitamins Strict I/O Avoid nephrotoxins and renal dose all medications. Will sign off at this time, please reconsult if needed. (2) Anemia Current Visit: Yes Status: Chronic Goal hemoglobin is 10-11. We will monitor Transfusion parameters as per primary team. Qualifiers: Anemia type: unspecified type Qualified Code(s): D64.9 - Anemia, unspecified (3) Altered mental status Current Visit: Yes Status: Acute Per primary. Qualifiers: Altered mental status type: unspecified Qualified Code(s): R41.82 - Altered mental status, unspecified (4) Chronic indwelling Leal catheter Current Visit: Yes Status: Acute Per primary. Subjective Principal diagnosis: ESRD Interval history: Seen and examined. Pt is more somnolent today. Will answer direct questions. ROS unobtainable. and family at bedside. Met with and other family members with RICARDO Jett. They have decided to go more comfort care and discontinue HD. Objective - Vital Signs Vital signs: Vital Signs Temp Pulse Resp BP Pulse Ox 11/28/18 11:37 97.5 F L 93 19 147/80 99 11/28/18 10:50 97.4 F L 22 124/68 11/28/18 10:30 96/44 11/28/18 10:25 84/50 11/28/18 10:20 86/53 11/28/18 10:10 101/49 11/28/18 09:55 110/55 11/28/18 09:40 122/79 11/28/18 09:25 132/77 11/28/18 09:10 98.1 F 20 163/84 11/28/18 06:33 97.6 F 82 16 158/77 96 11/28/18 03:33 97.9 F 95 16 142/68 91 11/28/18 00:12 97.4 F L 72 17 171/79 90 11/27/18 21:51 93 11/27/18 20:25 97.8 F 75 17 107/51 93 11/27/18 15:33 97.5 F L 88 16 126/69 92 Intake and Output 11/27/18 11/28/18 11/28/18 23:59 07:59 15:59 Intake Total 200 / 200 100 / 700 600 / 700 Output Total 600 / 600 Balance 200 / 200 100 / 100 0 / 100 Intake: IV Fluids 200 / 200 100 / 100 Doxycycline 100 MG In 0.9 % 100 / 100 Sodium Chloride (Mini-Bag +) 100 ML @ 100 mls/hr IVPB Q12HR DANETTE Rx#:[id number] Zosyn 3.375 GM In 0.9 % Sodium 100 / 100 100 / 100 Chloride (Mini-Bag +) 100 ML @ 25 mls/hr IVPB Q8HR DANETTE Rx#: [id number] Oral 0 / 0 0 / 0 Intake, Rinseback and Flushes 600 / 600 Output: Urine 0 / 0 Total Dialysis (HD) Output 600 / 600 Other: Meal Dinner Breakfast Percent of Meal Consumed 0% 0% Weight 83 kg Blood Glucose* 161 250 246 Hemodialysis Net Fluid Removed 0 (mL) Patient Weight 11/28/18 23:59 Weight 83 kg - General Appearance General appearance: Present: chronically ill, frail EENT: Present: ATNC, hearing intact, vision intact Neck: Present: supple Respiratory: Present: clear Cardiology: Present: no edema, normal S1, normal S2 Dialysis Vascular Access: Venous Catheter (DRSG C/D/I) Gastrointestinal: Present: normoactive bowel sounds, no tenderness, no guarding Integumentary: Present: no rash, warm and dry Neurologic: Present: alert and oriented x3 Musculoskeletal: Present: no deformities, no erythema Psychiatric: Present: mood/affect appropriate, cooperative - Lab 11/28/18 05:41 11/28/18 05:41 Most recent lab results 11/28/18 05:41 Calcium 8.7 Consult Discharge Plan - Plan Referrals: [facility] [Primary Care Provider] - ([facility])
[2018-11-28] MEDS: Ondansetron ODT 4 MG TAB.RAPDIS SL PRN ×2 (12:24→21:27)
[2018-11-28] MEDS ORDERED: *HR* LORazepam Oral Conc 2 MG/ML SL PRN ×2 (13:14→13:39)
--- NOTE | 2018-11-28 13:42 | Palliative Progress Note ---
Date of Encounter: 11/28/18 Time of Encounter: 12:15 - Assessment and plan (1) Generalized pain Current Visit: Yes Status: Acute Assessment and plan: Will begin low dose SL Oxycodone every 3 hours PRN and monitor. (2) Nausea Current Visit: Yes Status: Acute Assessment and plan: IV access has been lost. Transition to ODT Ondansetron and monitor. I believe anxiety may be exacerbating his nausea, low dose Lorazepam may be beneficial as well. (3) Altered mental status Current Visit: Yes Status: Acute Qualifiers: Altered mental status type: unspecified Qualified Code(s): R41.82 - Altered mental status, unspecified (4) Goals of care, counseling/discussion Current Visit: Yes Status: Acute Assessment and plan: Debbie, nephrology EXTERN and I met with patient and . Family all aware that he could not tolerate dialysis this am. Discussed frailty and multiple medical comorbid conditions yesterday with them as well. Patient and desire to transition to comfort care at this time, and understand he is not tolerating dialysis. not able to care for him at home, [place] inpatient hospice [facility] [place]. Patient has lost IV access, D/W that not sure this would benefit him at this point, as not going to dialyze, and would have to restick for access. She agreed to leave IV out and stop antibiotic therapy. Discussed with Susie - Randall returned case inspector, as well as Dr. Kim and primary nurse Maya. Code status changed to DNR-Comfort care. Will transfer patient to larger room to accommodate family when available and await bed at the [facility]. (5) ESRD (end stage renal disease) on dialysis Current Visit: No Status: Chronic (6) Cerebrovascular accident Current Visit: No Status: Chronic Qualifiers: CVA mechanism: unspecified Qualified Code(s): I63.9 - Cerebral infarction, unspecified (7) Palliative care encounter Current Visit: Yes Status: Acute - Time Spent With Patient Total time spent is greater than 50% in coordination of care (as documented) at patient's floor/unit and/or counseling patient: - Subjective Interval history: Patient was not able to tolerate dialysis this am, had hypotension and had to be aborted. D/W Debbie Maldonado NP. Patient is still c/o nausea and shortness of breath. , daughter, and son at bedside, as well as 3 grandchildren. - Constitutional Vitals: Abnormal lab results WBC 13.3 K/mcL (4.3-11.1) H 11/28/18 05:41 RBC 3.16 M/mcL (4.19-5.50) L 11/28/18 05:41 Hgb 10.2 g/dL (12.9-16.9) L 11/28/18 05:41 Hct 32.7 % (37.5-50.1) L 11/28/18 05:41 MCV 103.5 fL (83.0-100.0) H 11/28/18 05:41 MCHC 31.2 g/dL (31.6-35.5) L 11/28/18 05:41 Plt Count 463 K/mcL (140-400) H 11/28/18 05:41 MPV 9.3 fL (9.4-12.4) L 11/23/18 05:26 Neutrophils # 11.2 K/mcL (1.6-8.9) H 11/28/18 05:41 ESR 84 mm/hr (0-10) H 11/21/18 04:56 PT 12.6 Seconds (9.4-12.1) H 11/21/18 01:13 VBG pO2 57 mmHg (25-50) H 11/21/18 01:36 Sodium 133 mEq/L (136-145) L 11/26/18 02:28 Chloride 96 mEq/L (98-107) L 11/27/18 06:34 Carbon Dioxide 22 mEq/L (23-29) L 11/28/18 05:41 BUN 54 mg/dL (8-23) H 11/28/18 05:41 Creatinine 5.61 mg/dL (0.70-1.30) H 11/28/18 05:41 Est GFR ( Amer) 12 (> 60) L 11/28/18 05:41 Est GFR (Non-Af Amer) 10 (> 60) L 11/28/18 05:41 Glucose 249 mg/dL (70-105) H 11/28/18 05:41 POC Glucose 161 mg/dL (70-99) H 11/27/18 20:28 Calculated Osmolality 311 (280-300) H 11/28/18 05:41 Calcium 8.4 mg/dL (8.6-10.3) L 11/26/18 02:28 AST 8 Units/L (13-39) L 11/21/18 01:13 ALT < 3 Units/L (7-52) L 11/21/18 01:13 C-Reactive Protein 108 mg/L (Less than 10) H 11/21/18 04:56 Serum Total Protein 6.0 g/dL (6.4-8.9) L 11/21/18 01:13 Albumin 3.1 g/dL (3.5-5.7) L 11/21/18 01:13 Procalcitonin 1.38 ng/mL (0.00-0.15) H 11/27/18 13:15 Urine Clarity Cloudy (Clear) A 11/21/18 00:37 Urine Protein >=300 mg/dL (Neg-Trace) H 11/21/18 00:37 Urine Glucose (UA) 250 mg/dL (Normal) H 11/21/18 00:37 Urine Blood Moderate (Negative) H 11/21/18 00:37 Urine Bilirubin Small (Negative) H 11/21/18 00:37 Ur Leukocyte Esterase Moderate (Negative) H 11/21/18 00:37 Urine Microscopic RBC 30-50 per hpf (0-3) H 11/21/18 00:37 Urine Microscopic WBC TNTC per hpf (0-3) H 11/21/18 00:37 Urine Yeast Many per hpf (None Seen) H 11/21/18 00:37 Ur Culture Indicated? YES (NO) A 11/21/18 00:37 Staphylococcus sp PCR DETECTED (Not Detect) A 11/21/18 01:13 General appearance: Present: mild distress - Respiratory Respiratory exam: Present: decreased breath sounds Additional comments: Faint Expiratory wheezes throughout - Cardiovascular Cardiovascular exam: Present: irregular rhythm - GI/Abdominal GI/Abdominal exam: Present: diminished bowel sounds, distended, soft - Additional comments: Leal with dark agus urine - Extremities Exam Additional comments: Lower extremities wrapped bilaterally - Neurological Exam Neurological exam: Present: alert Additional comments: Oriented to name and place. Follows simple commands. - Psychiatric Psychiatric exam: Present: flat affect - Skin Skin exam: Present: dry, pallor, warm Palliative Quality Palliative Quality: Screen for Code Status: Yes, Screen for Goals of Care: Yes, Screen for Pain: Yes, Screen for Nausea/Vomitting: Yes Code Status: 11/21/18 03:49 Resuscitation Status: Active [RES] Routine Comment: Resuscitation Status: Full Code 11/26/18 14:47 DNR [Resuscitation Status: Active] [RES] Routine Comment: Resuscitation Status: [id number] 11/28/18 13:11 DNR [Resuscitation Status: Active] [RES] Routine Comment: Resuscitation Status: DNR-Comfort Care - Labs CBC & Chem 7: 11/28/18 05:41 11/28/18 05:41 Labs: Laboratory Results - last 24 hr 11/27/18 11/27/18 11/27/18 06:42 11:04 13:15 WBC RBC Hgb Hct MCV MCH MCHC RDW Plt Count MPV Immature Gran % Seg Neutrophils % Lymphocytes % Monocytes % Eosinophils % Basophils % Neutrophils # Lymphocytes # Monocytes # Eosinophils # Basophils # Sodium Potassium Chloride Carbon Dioxide BUN Creatinine Est GFR ( Amer) Est GFR (Non-Af Amer) BUN/Creatinine Ratio Glucose POC Glucose 243 H 327 H Calculated Osmolality Calcium Procalcitonin 1.38 H 11/27/18 11/27/18 11/27/18 13:15 15:30 20:28 WBC 13.8 H RBC 3.40 L Hgb 11.1 L Hct 34.0 L MCV 100.0 MCH 32.6 MCHC 32.6 RDW 13.5 Plt Count 456 H MPV 10.1 Immature Gran % 0.9 Seg Neutrophils % 89.4 Lymphocytes % 6.4 Monocytes % 3.2 Eosinophils % 0.0 Basophils % 0.1 Neutrophils # 12.4 H Lymphocytes # 0.9 Monocytes # 0.4 Eosinophils # 0.0 Basophils # 0.0 Sodium Potassium Chloride Carbon Dioxide BUN Creatinine Est GFR ( Amer) Est GFR (Non-Af Amer) BUN/Creatinine Ratio Glucose POC Glucose 263 H 161 H Calculated Osmolality Calcium Procalcitonin 11/28/18 11/28/18 05:41 05:41 WBC 13.3 H RBC 3.16 L Hgb 10.2 L Hct 32.7 L MCV 103.5 H MCH 32.3 MCHC 31.2 L RDW 13.6 Plt Count 463 H MPV 10.1 Immature Gran % 1.1 Seg Neutrophils % 84.6 Lymphocytes % 9.0 Monocytes % 5.2 Eosinophils % 0.0 Basophils % 0.1 Neutrophils # 11.2 H Lymphocytes # 1.2 Monocytes # 0.7 Eosinophils # 0.0 Basophils # 0.0 Sodium 139 Potassium 4.2 Chloride 98 Carbon Dioxide 22 L BUN 54 H Creatinine 5.61 H Est GFR ( Amer) 12 L Est GFR (Non-Af Amer) 10 L BUN/Creatinine Ratio 10 Glucose 249 H POC Glucose Calculated Osmolality 311 H Calcium 8.7 Procalcitonin - ABG Interpretation ABG results: PT/INR, D-dimer PT 12.6 Seconds (9.4-12.1) H 11/21/18 01:13 Palliative Scale - Palliative Performance Scale How ambulatory is this patient?: Totally bed bound What is patient's level of activity and evidence of disease?: Unable to do most activity, Extensive disease How much self-care assistance does patient require?: Total care How much oral intake does the patient have?: Minimal to sips What is this patient's level of consciousness?: Full or drowsy with or without confusion Palliative Performance Score: 30 % Consult Discharge Plan - Plan [facility]errals: [facility] [Primary Care Provider[facility] - ([facility])
[2018-11-29] MEDS: *HR* Heparin 5,000 UNIT/ML VIAL SQ SCH (05:33)
[2018-11-29 06:54] VITALS: BP 117/68
[2018-11-29] MEDS: Rivastigmine Patch 9.5 MG PATCH.TD24 TD SCH (08:53)
[2018-11-29] MEDS: Metoprolol XL (24 HR) Succ 25 MG TAB.ER.24H PO SCH (08:56)
[2018-11-29] MEDS: carBAMazepine 200 MG TABLET PO SCH (08:56)
[2018-11-29] MEDS: Calcium Acetate 667 MG CAPSULE PO SCH ×2 (08:56→11:31)
[2018-11-29] MEDS: Insulin LISPRO 300 UNITS/3 ML VIAL SQ SCH ×2 (08:56→11:31)
[2018-11-29] MEDS: Aspirin Enteric Coated 81 MG Tablet PO SCH (08:56)
[2018-11-29] MEDS: Finasteride 5 MG TABLET PO SCH (08:56)
[2018-11-29] MEDS: Carbidopa/Levodopa 25/100 TABLET PO SCH (08:56)
--- NOTE | 2018-11-29 10:02 | Palliative Progress Note ---
Date of Encounter: 11/29/18 Time of Encounter: 10:00 - Assessment and plan (1) Generalized pain Current Visit: Yes Status: Acute Assessment and plan: Continue Oxycodone SL concentrate PRN. Utilized x3 last 24 hours. Appears to be holding him at present. (2) Anxiety about health Current Visit: Yes Status: Acute Assessment and plan: Very anxious yesterday, appeared in panic most of afternoon. Continue low dose Lorazepam. Utilized x2 last 24 hours. Monitor. He is resting well this am. (3) Nausea Current Visit: Yes Status: Acute Assessment and plan: Continue ODT Ondansetron - utilized x1 last 24 hours. Monitor (4) Altered mental status Current Visit: Yes Status: Acute Qualifiers: Altered mental status type: unspecified Qualified Code(s): R41.82 - Altered mental status, unspecified (5) Goals of care, counseling/discussion Current Visit: Yes Status: Acute Assessment and plan: [facility]. Continue comfort measures and symptom management (6) ESRD (end stage renal disease) on dialysis Current Visit: No Status: Chronic (7) Cerebrovascular accident Current Visit: No Status: Chronic Qualifiers: CVA mechanism: unspecified Qualified Code(s): I63.9 - Cerebral infarction, unspecified (8) Palliative care encounter Current Visit: Yes Status: Acute - Time Spent With Patient Total time spent is greater than 50% in coordination of care (as documented) at patient's floor/unit and/or counseling patient: - Subjective Interval history: Patient with anxiety/discomfort yesterday and required medications, but accordingly to family, did rest well last pm. Appears calmer today, less nausea. Vitals stable. Multiple family members at bedside. - Constitutional Vitals: Abnormal lab results WBC 13.3 K/mcL (4.3-11.1) H 11/28/18 05:41 RBC 3.16 M/mcL (4.19-5.50) L 11/28/18 05:41 Hgb 10.2 g/dL (12.9-16.9) L 11/28/18 05:41 Hct 32.7 % (37.5-50.1) L 11/28/18 05:41 MCV 103.5 fL (83.0-100.0) H 11/28/18 05:41 MCHC 31.2 g/dL (31.6-35.5) L 11/28/18 05:41 Plt Count 463 K/mcL (140-400) H 11/28/18 05:41 MPV 9.3 fL (9.4-12.4) L 11/23/18 05:26 Neutrophils # 11.2 K/mcL (1.6-8.9) H 11/28/18 05:41 ESR 84 mm/hr (0-10) H 11/21/18 04:56 PT 12.6 Seconds (9.4-12.1) H 11/21/18 01:13 VBG pO2 57 mmHg (25-50) H 11/21/18 01:36 Sodium 133 mEq/L (136-145) L 11/26/18 02:28 Chloride 96 mEq/L (98-107) L 11/27/18 06:34 Carbon Dioxide 22 mEq/L (23-29) L 11/28/18 05:41 BUN 54 mg/dL (8-23) H 11/28/18 05:41 Creatinine 5.61 mg/dL (0.70-1.30) H 11/28/18 05:41 Est GFR ( Amer) 12 (> 60) L 11/28/18 05:41 Est GFR (Non-Af Amer) 10 (> 60) L 11/28/18 05:41 Glucose 249 mg/dL (70-105) H 11/28/18 05:41 POC Glucose 217 mg/dL (70-99) H 11/28/18 15:59 Calculated Osmolality 311 (280-300) H 11/28/18 05:41 Calcium 8.4 mg/dL (8.6-10.3) L 11/26/18 02:28 AST 8 Units/L (13-39) L 11/21/18 01:13 ALT < 3 Units/L (7-52) L 11/21/18 01:13 C-Reactive Protein 108 mg/L (Less than 10) H 11/21/18 04:56 Serum Total Protein 6.0 g/dL (6.4-8.9) L 11/21/18 01:13 Albumin 3.1 g/dL (3.5-5.7) L 11/21/18 01:13 Procalcitonin 1.38 ng/mL (0.00-0.15) H 11/27/18 13:15 Urine Clarity Cloudy (Clear) A 11/21/18 00:37 Urine Protein >=300 mg/dL (Neg-Trace) H 11/21/18 00:37 Urine Glucose (UA) 250 mg/dL (Normal) H 11/21/18 00:37 Urine Blood Moderate (Negative) H 11/21/18 00:37 Urine Bilirubin Small (Negative) H 11/21/18 00:37 Ur Leukocyte Esterase Moderate (Negative) H 11/21/18 00:37 Urine Microscopic RBC 30-50 per hpf (0-3) H 11/21/18 00:37 Urine Microscopic WBC TNTC per hpf (0-3) H 11/21/18 00:37 Urine Yeast Many per hpf (None Seen) H 11/21/18 00:37 Ur Culture Indicated? YES (NO) A 11/21/18 00:37 Staphylococcus sp PCR DETECTED (Not Detect) A 11/21/18 01:13 General appearance: Present: no acute distress - Respiratory Respiratory exam: Present: decreased breath sounds, CTAB - Cardiovascular Cardiovascular exam: Present: RRR, +S1, +S2 - GI/Abdominal GI/Abdominal exam: Present: distended, normal bowel sounds, soft - Additional comments: Leal with dk agus urine - Extremities Exam Additional comments: 2+ lower extremity edema - Neurological Exam Neurological exam: Present: alert Additional comments: Oriented to name and place. Inappropriate statements at times. - Skin Skin exam: Present: dry, pallor, warm Additional comments: Lower extremity wound dressings D/I Palliative Quality Palliative Quality: Screen for Code Status: Yes, Screen for Goals of Care: Yes, Screen for Pain: Yes, Screen for Nausea/Vomitting: Yes Code Status: 11/21/18 03:49 Resuscitation Status: Active [RES] Routine Comment: Resuscitation Status: Full Code 11/26/18 14:47 DNR [Resuscitation Status: Active] [RES] Routine Comment: Resuscitation Status: [id number] 11/28/18 13:11 DNR [Resuscitation Status: Active] [RES] Routine Comment: Resuscitation Status: DNR-Comfort Care - Labs CBC & Chem 7: 11/28/18 05:41 11/28/18 05:41 Labs: Laboratory Results - last 24 hr 11/28/18 11/28/18 11/28/18 06:31 11:32 15:59 POC Glucose 250 H 246 H 217 H - ABG Interpretation ABG results: PT/INR, D-dimer PT 12.6 Seconds (9.4-12.1) H 11/21/18 01:13 Palliative Scale - Palliative Performance Scale How ambulatory is this patient?: Totally bed bound What is patient's level of activity and evidence of disease?: Unable to do most activity, Extensive disease How much self-care assistance does patient require?: Total care How much oral intake does the patient have?: Minimal to sips What is this patient's level of consciousness?: Full or drowsy with or without confusion Palliative Performance Score: 30 % Consult Discharge Plan - Plan Referrals: [facility] [Primary Care Provider] - ([facility])
--- NOTE | 2018-11-29 10:54 | Internal Med Progress Note ---
Hospitalist Progress Note - Encounter Date of Encounter: 11/29/18 Time of Encounter: 10:54 - Exam Vitals: Temp Pulse Resp BP Pulse Ox 98.2 F 68 15 117/68 100 11/29/18 06:52 11/29/18 06:52 11/29/18 06:52 11/29/18 06:52 11/29/18 06:52 - Assessment and Plan (1) Sepsis Current Visit: Yes Status: Acute (2) Diabetes mellitus Current Visit: Yes Status: Chronic (3) Diabetic foot ulcer Current Visit: Yes Status: Acute (4) Sacral decubitus ulcer Current Visit: Yes Status: Chronic (5) ESRD (end stage renal disease) on dialysis Current Visit: Yes Status: Chronic (6) Parkinson's disease dementia Current Visit: Yes Status: Chronic (7) Vascular dementia Current Visit: Yes Status: Chronic - Time Spent with Patient Total time spent is greater than 50% in coordination of care (as documented) at patient's floor/unit and/or counseling patient: Internal Medicine: Result - Labs CBC & Chem 7: 11/28/18 05:41 11/28/18 05:41 - ABG Interpretation ABG results: PT/INR, D-dimer PT 12.6 Seconds (9.4-12.1) H 11/21/18 01:13 Consult Discharge Plan - Plan [facility]errals: [facility] [Primary Care Provider[facility] - ([facility]) (1) Sepsis Qualifiers: Sepsis type: sepsis due to unspecified organism Qualified Code(s): A41.9 - Sepsis, unspecified organism (2) Diabetes mellitus Qualifiers: Diabetes mellitus type: type 2 Diabetes mellitus [facility] insulin use: with termite control technician use Diabetes mellitus complication status: with kidney complications Diabetes mellitus complication detail: with chronic kidney disease Chronic kidney disease stage: unspecified stage Qualified Code(s): E11.22 - Type 2 diabetes mellitus with diabetic chronic kidney disease; Z79.4 - terminal operations manager (current) use of insulin (3) Diabetic foot ulcer Qualifiers: Diabetic foot ulcer location: other Diabetes mellitus type: type 2 Laterality: left Non-pressure ulcer stage: with fat layer exposed Qualified Code(s): E11.621 - Type 2 diabetes mellitus with foot ulcer; L97.522 - Non- pressure chronic ulcer of other part of left foot with fat layer exposed (4) Sacral decubitus ulcer Qualifiers: Pressure injury stage: stage 1 Qualified Code(s): L89.151 - Pressure ulcer of sacral region, stage 1 (6) Parkinson's disease dementia Qualifiers: Dementia behavioral disturbance: with behavioral disturbance Qualified Code(s): G20 - Parkinson's disease; F02.81 - Dementia in other diseases classified elsewhere with behavioral disturbance (7) Vascular dementia Qualifiers: Dementia behavioral disturbance: with behavioral disturbance Qualified Code(s): F01.51 - Vascular dementia with behavioral disturbance
--- NOTE | 2018-11-29 11:36 | Discharge Summary ---
- NOTES TO OUTPATIENT PROVIDER Notes to Outpatient Provider: [facility] Orders not resulted at time of discharge: Pending orders 11/25/18 16:44 Culture,Blood [BC] Routine 11/27/18 09:20 Culture,Blood [BC] Stat Date of Encounter: 11/29/18 Time of Encounter: 11:33 - Discharge Diagnosis (1) Sepsis Priority: Primary Status: Acute Qualifiers: Sepsis type: sepsis due to unspecified organism Qualified Code(s): A41.9 - Sepsis, unspecified organism (2) Diabetes mellitus Priority: Secondary Status: Chronic Qualifiers: Diabetes mellitus type: type 2 Diabetes mellitus half-way insulin use: with termite exterminator use Diabetes mellitus complication status: with kidney complications Diabetes mellitus complication detail: with chronic kidney disease Chronic kidney disease stage: unspecified stage Qualified Code(s): E11.22 - Type 2 diabetes mellitus with diabetic chronic kidney disease; Z79.4 - terminal block assembler (current) use of insulin (3) Diabetic foot ulcer Priority: Secondary Status: Acute Qualifiers: Diabetic foot ulcer location: other Diabetes mellitus type: type 2 Laterality: left Non-pressure ulcer stage: with fat layer exposed Qualified Code(s): E11.621 - Type 2 diabetes mellitus with foot ulcer; L97.522 - Non- pressure chronic ulcer of other part of left foot with fat layer exposed (4) Sacral decubitus ulcer Priority: Secondary Status: Chronic Qualifiers: Pressure injury stage: stage 1 Qualified Code(s): L89.151 - Pressure ulcer of sacral region, stage 1 (5) ESRD (end stage renal disease) on dialysis Priority: Secondary Status: Chronic (6) Parkinson's disease dementia Priority: Primary Status: Chronic Qualifiers: Dementia behavioral disturbance: with behavioral disturbance Qualified Code(s): G20 - Parkinson's disease; F02.81 - Dementia in other diseases classified elsewhere with behavioral disturbance (7) Vascular dementia Priority: Primary Status: Chronic Qualifiers: Dementia behavioral disturbance: with behavioral disturbance Qualified Code(s): F01.51 - Vascular dementia with behavioral disturbance (8) Failure to thrive Priority: Secondary Status: Acute Qualifiers: Failure to thrive age range: in adult Qualified Code(s): R62.7 - Adult failure to thrive (9) Acute metabolic encephalopathy Priority: Primary Status: Acute (10) Altered mental status Priority: Primary Status: Acute Qualifiers: Altered mental status type: unspecified Qualified Code(s): R41.82 - Altered mental status, unspecified Hospital course: Mr. Anguiano is a 73 year old male surgical history of CVA, diabetes, Parkinson's, CAD with cardiomyopathy, end-stage renal disease on dialysis came in with change in altered mental status. Patient recently discharged after similar admission when he was found to have hypoglycemia and UTI. Patient had signs of sepsis with possible pneumonia as the source on admission. He was started on broad- spectrum antibiotics. Head CT was unremarkable. Patient blood culture 1 out of 2 bottles grew Staphylococcus warneri. Initially acute encephalopathy was thought to be metabolic in nature. Antibiotics were stopped as his white count improved and did not have any further positive blood cultures. MRI of was obtained to rule out stroke given patient not on blood thinner with cardiomyopathy with EF of 35%. MRI was unremarkable. Patient mentation improved with times where he was completely alert but times he would be mute. He later on developed significant leukocytosis. He was restarted on broad-spec trum antibiotics. Palliative care consult based on discussion with family given his worsening Parkinson and poor quality of life with dialysis and recurrent admissions. He was made DNR [facility]. Patient was dialyzed during the entire hospitalization and was tolerating well however during his session on he develops significant hypotension and had to be terminated earlier. Repeat blood cultures had been negative. After another discussion with palliative care family decided to stop all active treatment including dialysis. Patient was being arranged for hospice at [facility]. All patient's medications will be stopped on discharge. He will continued on comfort care measures at [facility]. Discharge discussed with: patient, family, nurse, social work, case management, multi site leasing consultant - Time Spent with Patient Total time spent providing and/or coordinating discharge services: Time spent: Greater than 30 minutes (40) - Discharge Medications Prescriptions: Discontinued carBAMazepine [Tegretol] 200 mg PO TID Finasteride [Proscar] 5 mg PO DAILY Nitroglycerin [Nitrostat] 0.4 mg SL Q5MIN PRN PRN Reason: Chest Pain Fluticasone Propionate Nasal [Flonase] 100 mcg NS DAILY PRN PRN Reason: Allergy Symptoms Ergocalciferol (VITAMIN D2) [Vitamin D2] 50,000 units PO MO Aspirin Enteric Coated [Aspirin EC] 81 mg PO DAILY #60 tablet. Atorvastatin Calcium [Lipitor] 80 mg PO HS Insulin LISPRO [HumaLOG] 0 units SQ TIDWM Ipratropium/Albuterol Neb [Duoneb] 3 ml IH [id number] PRN inhsol PRN Reason: Shortness Of Breath/Wheezing Bisacodyl [Dulcolax] 10 mg RC DAILY PRN supp.rect PRN Reason: Constipation Sennosides/Docusate Sodium [Senna Plus] 1 each PO DAILY tablet Cyclobenzaprine [Flexeril] 10 mg PO TID PRN PRN Reason: Muscle Spasm Lactobacillus Acidophilus [Acidophilus] 1 each PO BID Ondansetron HCl [Zofran] 4 mg PO Q8HR PRN PRN Reason: Nausea Metoprolol XL (24 HR) Succ [Toprol Xl] 12.5 mg PO DAILY #30 tab.er.24h Lisinopril [Zestril] 2.5 mg PO DAILY #30 tablet Clopidogrel [Plavix] 75 mg PO DAILY #30 tablet Pregabalin [Lyrica] 100 mg PO BID Calcium Acetate [Phos-LO] 1,334 mg PO TIDWM Amino Acids/Protein Hydrolys [Pro-Stat Awc Liquid Packet] 30 ml PO DAILY Amoxicillin/Clavulanate [Augmentin] 875 mg PO BIDWM 4 Days #8 tablet Insulin Degludec [Tresiba Flextouch U-200] 40 units SQ HS 30 Days #2 insuln.pen Carbidopa/Levodopa 25/100 [Sinemet 25/100] 1 each PO TID Ketoconazole 2% CRM [Nizoral Cream] 1 appl TP BID Rivastigmine Patch [Exelon] 9.5 mg TD DAILY Allergies/Adverse Reactions: Allergy/AdvReac Type Severity Reaction Status Date / Time No Known Allergies Allergy Verified 10/04/18 19:00 Date of admission: 11/21/18 10:11 [facility] Consults: 11/21/18 03:57 Consult to Nephrology [CONS] Routine Consulting Provider: Kidney Radha/SARATH/NILS/BROOKS Reason for Consult: ESRD, HD TTS Call Completed: No 11/21/18 07:35 Consult to Speech Therapy [CONS] Routine Comment: Evaluate, develop and implement POC Reason for Consult: Swallow eval Call Completed: Yes 11/21/18 07:45 Consult to Dialysis [CONS] ONCE 11/21/18 08:28 Consult to Nurse Navigator [CONS] Routine Comment: hd 11/21/18 11:32 Consult to Lawn Mower Sharpener [CONS] Routine Reason for SW Consult: rtn to wmp 11/22/18 14:36 Consult to Interventional Radiology [CONS] Routine Consulting Provider: Radiology Interventional Cols Reason for Consult: Over the wire exchange. Time Notified: 14:38 Call Completed: Yes 11/23/18 08:15 Consult to Dialysis [CONS] QTUTHSA 11/23/18 15:13 Consult to Podiatry [CONS] Routine Consulting Provider: [facility] Reason for Consult: Diabetic foot ulcers Call Completed: Yes 11/25/18 16:02 Consult to Palliative Care [CONS] Routine Comment: Consulting Provider: Palliative Care [place] Reason for Consult: goals of care discussion Call Completed: Yes 11/26/18 08:15 Consult to Dialysis [CONS] QTUTHSA 11/28/18 08:15 Consult to Dialysis [CONS] [facility] Discharging clinician: Ryan Kim - Constitutional Vitals: Temp Pulse Resp BP Pulse Ox 98.2 F 68 15 117/68 100 11/29/18 06:52 11/29/18 06:52 11/29/18 06:52 11/29/18 06:52 11/29/18 06:52 Exam: General: In no acute distress. Respiratory exam: no accessory muscle use, Coarse breath sounds Cardiovascular exam: RRR, +S1, +S2. no murmur, gallop, rubs. GI/Abdominal exam: soft, nontender, no peritoneal signs. Extremities exam: no pedal edema, Neurological exam: sleepy, sleepy, not attempted. - Patient Status Disposition: Hospice - Medical Facility Condition: Serious - Discharge Instructions [facility] Care Provider[facility] - ([facility]) Forms: ED Satisfaction Letter
--- NOTE | 2018-11-29 11:52 | Physician Discharge Referral ---
Home Health/Hosp Referral Info Transfer to: Hospice - Diagnosis (1) Sepsis Status: Acute (2) Diabetes mellitus Status: Chronic (3) Diabetic foot ulcer Status: Acute (4) Sacral decubitus ulcer Status: Chronic (5) ESRD (end stage renal disease) on dialysis Status: Chronic (6) Parkinson's disease dementia Status: Chronic (7) Vascular dementia Status: Chronic (8) Failure to thrive Status: Acute (9) Acute metabolic encephalopathy Status: Acute (10) Altered mental status Status: Acute - Respiratory Orders Smoking Cessation: Smoking cessation has been advised. For more information, call the [place] Tobacco Quit Line at 0-220-HSEYNOW. - Transfer Medications Allergies/Adverse Reactions: Allergy/AdvReac Type Severity Reaction Status Date / Time No Known Allergies Allergy Verified 10/04/18 19:00 Certification: Further, I certify that my clinical findings support that this patient is homebound (i.e. absences from home require considerable and taxing effort and are for medical reasons or [employer] services or infrequently or short duration when for other reasons) because: Homebound Reason: Patient requires assistance of a person or device to safely leave home Attestation: My signature below is to certify that this patient is under my care and that I, or nurse practitioner, or a physician's assistant director of residence life working with me, has a [id number] encounter with this patient.
[2018-11-29] MEDS ORDERED: Pantoprazole 40 MG VIAL IVP SCH (12:16)
== END 2018-11-29 13:10 | disposition hospice, inpatient (51) | DRG 871 ==
LOC: 2ANU 23:11 → EMEROOARM 23:11 → SUATTDRO 11-21 03:11 → 2ANU 11-21 04:02 → SUATTDRO 11-21 10:11 → 2ANU 11-28 16:27
PROVIDERS: ADMIT Internal Medicine Nephrology; ATTEND Internal Medicine